=== PATIENT | female | born 1965 | race Caucasian/White ===

== ENCOUNTER → 2021-05-13 | Outpatient (CLI) | payer BC ==
[2021-05-13 14:36] LABS: CPK CREATINE PHOSPHOKINASE 72 U/L (26-192); RHEUMATOID FACTOR QUANT < 10.0 IU/ML (<15.0)
== END ==
LOC: M PLALAB 11:26
PROVIDERS: ATTEND Internal Medicine Pulmonary Disease
DX: R91.8 Other nonspecific abnormal finding of lung field (principal)

== ENCOUNTER → 2021-06-04 | Outpatient (CLI) | payer BC ==
[2021-06-04 17:07] LABS: PLATELET COUNT, AUTOMATED 432 10^3/uL (150-450)
[2021-06-04 17:12] LABS: INR 1.42; PARTIAL THROMBOPLASTIN TIME 36.2 SECONDS (25.9-37.0); PROTHROMBIN TIME 17.8 SECONDS (12.7-14.5)
== END ==
LOC: M PLALAB 15:30
PROVIDERS: ATTEND Internal Medicine Pulmonary Disease
DX: Z01.812 Encounter for preprocedural laboratory examination (principal)

== ENCOUNTER 2021-06-17 07:27 | Day surgery (SDC) | payer BC ==
[~2021-06-17] VITALS: Ht 165.1 cm; Wt 107.0 kg
[~2021-06-17 07:27] MED LIST: ALBUTEROL SULFATE 2.5 MG/0.5 ML INH NEB SOLN INH ONE; D 50CAP2; LETR2.5T2; LIDOCAINE 1% MDV 20ML VIAL SQ PRN; LIDOCAINE 4% INJ 5ML AMP INH ONE; LR 1,000 ML IV ONE
--- OUTSIDE RECORDS SUMMARY | 2021-06-17 07:33 | CCD | Continuity of Care Document ---
Author Author Silvia ARROYO M.D. Organization Unknown Address [address] [place] [address] Phone [phone] Care Team Providers Care Pitch Flaker Name Role Phone Jett Cadet AUTM [phone] Problems Description No Information Available Social History Type Date Description Comments Sex Unknown Tobacco Use Start: 07/18/79 End: 07/18/86 Patient is a forme r smoker 6 cig a day x 6 years Smoking Status Reviewed: 06/04/21 Patient is a former smoker 6 cig a day x 6 years Allergies and adverse reactions Active Allergies Criticality Reaction | Severity Comments Date Codeine Unable to assess criticality Palpitations 05/07/2021 Lovenox Unable to assess criticality Rash that blistered 05/07/2021 Medications Active Medications SIG Qnty Indications Ordering Provide r Date Xarelto 20mg Tablets 1 tab by mouth every day pcp DVT leg Unknown Letrozole 2.5mg Tablets 1 tab by mouth Unknown Oxycodone HCL 5mg Tablets 1 tab by mouth as needed Unknown Senna 1 tab by mouth as needed Unknown Colace 100mg Capsules 1 tab by mouth as needed Unknown Albuterol Sulfate HFA 108(90Base) mcg/Act Aerosol inhale two puffs by mouth every 4 hours as needed Unknown Immunizations Description No Information Available Vital Signs Date Vital Result Comment 06/04/2021 1:06pm BP Systolic 110 mmHg BP Diastolic 70 mmHg Heart Rate 74 /min O2 % BldC Oximetry 94 % Height 63 inches 5'3" Weight 228.00 lb BMI (Body Mass Index) 40.4 kg/m2 [place] Body Weight 115 lb Weight 103.421 kg BSA (Body Surface Area) 2.04 m2 05/07/2021 2:35pm BP Systolic 140 mmHg BP Diastolic 80 mmHg Heart Rate 76 /min O2 % BldC Oximetry 97 % Room Air Height 63 inches 5'3" Weight 232.00 lb BMI (Body Mass Index) 41.1 kg/m2 [place] Body Weight 115 lb Weight 105.235 kg BSA (Body Surface Area) 2.06 m2 Results Test Acquired Date Facility Test Result H/L Range Note Coag Panel For Procedures 06/04/2021 [facility] Main Lab [address] [place] [address] [phone] Platelet Count, Automated 432 10 Normal 150-45 0 Prothrombin Time/Inr 06/04/2021 [facility] Main Lab [address] [place] [address] [phone] Prothrombin Time 17.8 seconds High 12.7-14.5 Inr 1.42 Normal 1 Partial Thromboplastin Time 36.2 seconds Normal 25.9-37.0 Laboratory test finding 05/13/2021 [facility] Main Lab [address] [place] [address] [phone] Erythrocyte Sedimentation Rate 68 mm/hr High 0 -30 Rheumatoid Factor Quant < 10.0 IU/mL Normal <15.0 Anti Double Strand Dna Allyson 05/13/2021 [facility] Main Lab [address] [place] [address]593 [phone] Anti DS-Dna AB Negative Normal Negative Laboratory test finding 05/13/2021 [facility] Main Lab [address] [place] [address]78 [phone] Cyclic Citrullinated Peptide 10 units Normal 0-1 9 2 Candi Titer & Pattern 05/13/2021 [facility] nter Main Lab [address] [place] [address] [phone] Candi (Hep2) Positive Abnormal . 3 Candi Homogeneous Pattern TNP Normal . Candi Nucleolar Pattern TNP Normal . Candi Speckled Pattern TNP Normal . Candi Centromere Pattern TNP Normal . Candi Spindle Apparatus Pattern TNP Normal . Candi Nuclear Membrane Pattern 1:80 Normal . 4 Candi Midbody Pattern TNP Normal . Candi Nuclear Dot Pattern 1:320 High . 5 Candi Pcna Pattern TNP Normal . Candi Centriole Pattern TNP Normal . Candi Note (SEE NOTE) Normal . 6 Laboratory test finding 05/13/2021 [facility] Main Lab [address] [place] [address] [phone] CPK Creatine Phosphokinase 72 U/L Normal 26-19 2 Aldolase 4.4 U/L Normal 3.3-10.3 Anti-Sjogrens A&B Antibodies 05/13/2021 [facility] Main Lab [address] [place] [address] [phone] Ssa Sjogrens A <0.2 AI Normal 0.0-0.9 SSB Sjogrens B <0.2 AI Normal 0.0-0.9 Laboratory test finding 05/13/2021 [facility] Main Lab [address] [place] [address] [phone] Anti Scleroderma Antibodies <0.2 AI Normal 0.0- 0.9 Anti Centromere Antibody <0.2 AI Normal 0.0-0.9 Rna Polymerase III IgG Abs <20 units Normal <20 7 Anti Gwendolyn-1 Antibodies <20 units Normal <20 8 Anti-PL-12 AB Negative Normal Negative 9 Anti-Oj AB Negative Normal Negative 10 Anti-Ej AB Negative Normal Negative 11 Anti-SRP AB Negative Normal Negative 12 Mi-2 Antibodies Negative Normal Negative 13 Anti-Mda5 AB (Cadm-140) <20 units Normal <20 14 Anti-NXP-2 (MJ) AB <20 units Normal <20 15 Anti-Tif-1 (P155) AB <20 units Normal <20 16 Cristofer 1 Igg Antibody <20 units Normal <20 17 Anti-HMGCR AB IgG <20 units Normal <20 18 Anti Roca(Sm) AB <20 units Normal <20 19 Anti Allyssa Extractable Nuclear A 05/13/2021 [facility] Main Lab [address] [place] [address] [phone] Smiths Antibody < 0.2 AI Normal 0.0-0.9 BILLING TYPIST Antibody 0.2 AI Normal 0.0-0.9 Laboratory test finding 05/13/2021 [facility] Main Lab [address] [place] [address] [phone] Anti-U1 BILLING TYPIST AB <20 units Normal <20 20 FVL/[place] 05/07/2021 [employer] PDFReport SEE IMAGE FVC-Pred 3.26 L FVC-Pre 2.85 L FVC-%Pred-Pre 87 L FVC-LLN 2.59 L Fev1-Pred 2.54 L Fev1-Pre 2.35 L Fev1-%Pred-Pre 92 L Fev1-LLN 1.97 L Fev6-Pred 3.16 L Fev6-Pre 2.83 L Fev6-%Pred-Pre 89 L Fev6-LLN 2.50 L Uuj6tce-Lvwj 79 % Mww1mqy-Ydm 83 % Zad4duw-%Pred-Pre 104 % Naw8jib-SFC 69 % Tzt7zpa-Qpik 97 % Nff1kvq-Eca 100 % Dbr5rrg-%Pred-Pre 102 % FEFMax-Pred 6.30 L/E/sec FEFMax-Pre 5.21 L/E/sec FEFMax-%Pred-Pre 82 L/E/sec FEFMax-LLN 4.63 L/E/sec Uos8686-Hlse 2.42 L/E/sec Dqa8111-Klm 2.42 L/E/sec Mif8626-%Pred-Pre 100 L/E/sec Syk1672-LDP 1.22 L/E/sec ExpTime-Pre 7.31 sec Qnp9cbe2-Yxpa 81 % Dgu8qin7-Bgx 83 % Tqk2nss9-%Pred-Pre 102 % Gow1twa5-NMX 72 % 1 THERAPUTIC HUMAN INR VALUES INDICATIONS NORMAL RANGES PROPHYLAXIS/TREATMENT OF: VENOUS THROMBOSIS 2.0-3.0 PULMONARY EMBOLISM 2.0-3.0 PREVENTION OF SYSTEMIC EMBOLISM FROM: TISSUE HEART VALVES 2.0-3.0 ACUTE MYOCARDIAL INFARCTION 2.0-3.0 VALVULAR HEART DISEASE 2.0-3.0 ATRIAL FIBRILLATION 2.0-3.0 MECHANICAL VALVES(HIGH RISK) 2.5-3.5 RECURRENT MYOCARDIAL INFARCTION 2.5-3.5 2 Negative <20 Weak positive 20 - 39 Moderate positive 40 - 59 Strong positive >59 3 Negative <1:80 Borderline 1:80 Positive >1:80 4 ICAP nomenclature: AC-11,12 5 ICAP nomenclature: AC-6,7 6 . For more information about Hep-2 cell patterns use ANApatterns.org, the official website for the International Consensus on Antinuclear Antibody (CANDI) Patterns (ICAP). A positive CANDI result may occur in healthy individuals (low titer) or be associated with a variety of diseases. See interpretation chart which is not all inclusive: . Pattern Antigen Detected Suggested Disease Association --------- Homogeneous DNA(ds,ss), SLE - High titers Nucleosomes, Histones Drug-induced SLE --------- Speckled Sm, BILLING TYPIST, SCL-70, SLE,MCTD,PSS (diffuse form), SS-A/SS-B Sjogrens --------- Nucleolar SCL-70, PM-1/SCL High titers Scleroderma, PM/DM --------- Centromere Centromere PSS (limited form) w/Crest syndrome variable --------- Nuclear Dot Sp100,g37-rixkgk Primary Biliary Cirrhosis --------- Nuclear GP210, Primary Biliary Cirrhosis Membrane loulou A,B,C --------- Performed at: [facility] [address] [id number] Concrete Pourer: Deb Smith MD, Phone: [phone] Performed at: [facility] [address] [id number] Concrete Pourer: Tree Moreland MD, Phone: [phone] Performed at: [facility] [employer] [address] [place] [id number] Concrete Pourer: Nathan Frances MD, Phone: [phone] Negative: <20 Weak Positive: 20 - 39 Moderate Positive: 40 - 80 Strong Positive: >80 8 Negative: <20 Weak Positive: 20 - 39 Moderate Positive: 40 - 80 Strong Positive: >80 9 This test was developed and its performance characteristics determined by [facility]. It has not been cleared or approved by the Food and Drug Administration. 10 This test was developed and its performance characteristics determined by [facility] [employer]. It has not been cleared or approved by the Food and Drug Administration. 11 This test was developed and its performance characteristics determined by [facility]. It has not been cleared or approved by the Food and Drug Administration. 12 This test was developed and its performance characteristics determined by [facility] [employer]. It has not been cleared or approved by the Food and Drug Administration. 13 This test was developed and its performance characteristics determined by [employer] [employer]. It has not been cleared or approved by the Food and Drug Administration. 14 This test was developed and its performance characteristics determined by [employer] [employer]. It has not been cleared or approved by the Food and Drug Administration. Negative: <20 Weak Positive: 20 - 39 Moderate Positive: 40 - 80 Strong Positive: >80 15 This test was developed and its performance characteristics determined by [facility]. It has not been cleared or approved by the Food and Drug Administration. Negative: <20 Weak Positive: 20 - 39 Moderate Positive: 40 - 80 Strong Positive: >80 16 This test was developed and its performance characteristics determined by [facility]. It has not been cleared or approved by the Food and Drug Administration. Negative: <20 Weak Positive: 20 - 39 Moderate Positive: 40 - 80 Strong Positive: >80 17 This test was developed and its performance characteristics determined by [facility]. It has not been cleared or approved by the Food and Drug Administration. Negative: <20 Weak Positive: 20 - 39 Moderate Positive: 40 - 80 Strong Positive: >80 18 This test was developed and its performance characteristics determined by [facility]. It has not been cleared or approved by the Food and Drug Administration. Negative: <20 Weak Positive: 20 - 39 Moderate Positive: 40 - 59 Strong Positive: >59 . Anti-HMGCR antibodies are specific for immune-mediated necrotizing myopathy, most typically associated with statin therapy. However, about 30% of patients with anti-HMGCR positive myonecrosis have never been exposed to statins (Beka JL et al. Arthritis Rheum 2012;64(12):4087-93). 19 Negative: <20 Weak Positive: 20 - 39 Moderate Positive: 40 - 80 Strong Positive: >80 Performed at: [email or web address] [address] [id number] Concrete Pourer: Nathan Frances MD, Phone: [phone] This test was developed and its performance characteristics determined by [facility]. It has not been cleared or approved by the Food and Drug Administration. Negative: <20 Weak Positive: 20 - 39 Moderate Positive: 40 - 80 Strong Positive: >80 Procedures Date Code Description Status 06/04/2021 58751 Office/Outpatient Established Mo d MDM 30-39 Min Completed 06/04/2021 94082 Diffusing Capacity Completed 06/04/2021 32690 Plethysmography Determination Audrey ng Volumes & Per Airway Resist Completed 06/04/2021 72998 Bronchospasm Evaluation Complete d 05/07/2021 30147 Office/Outpatient New Moderate M DM 45-59 Minutes Completed Medical Devices Description No Information Available Encounters Type Date Location Provider Dx Diagnosis Office Visit 06/04/2021 3:15p [facility] Angela Arroyo M.D. R91.8 Other nonspecific abnormal f inding of lung field Z01.812 Encounter for preprocedural laboratory examination Office Visit 05/07/2021 2:45p [facility] Angela Arroyo M.D. R91.8 Other nonspecific abnormal f inding of lung field Assessments Date Code Description Provider 06/04/2021 R91.8 Other nonspecific abnormal findi ng of lung field Cash Arroyo M.D. 06/04/2021 R91.8 Other nonspecific abnormal findi ng of lung field Pulmonary Lab 06/04/2021 Z01.812 Encounter for preprocedural labo ratory examination Cash Arroyo M.D. 05/07/2021 R91.8 Other nonspecific abnormal findi ng of lung field Cash Arroyo M.D. Plan of Treatment 06/04/2021 - Cash Arroyo M.D.* R91.8 Other nonspecific abnormal finding of lung field * Z01.812 Encounter for preprocedural laboratory examination * * New Xrays:* CT Chest W/O Contrast, Ordered: 06/04/21 * New Orders:* Bronchoscopy in Or, Ordered: 06/04/21 * Follow up:* Follow up in office after procedure. if most recent CT chest is not useful for the EMN then will get CT chest ME robot leighton protocol, fup 1 week after procedure Functional Status Description No Information Available Mental Status Description No Information Available Referrals Refer to Reason for Referral Status Appt Cash Torres M.D. LUNG INFILTRATE Closed 021 [facility] Practice-Pulmonary [address] [place] [address] [phone]
--- OUTSIDE RECORDS SUMMARY | 2021-06-17 07:33 | CCD | Continuity of Care Document ---
Author Author Silvia ARROYO M.D. Organization Unknown Address [address] [place] [address] Phone [phone] Care Team Providers Care Scientific Informatics Project Leader Name Role Phone Jett Cadet AUTM [phone] Problems Description No Information Available Social [...] lb BMI (Body Mass Index) 40.4 kg/m2 [place] Body Weight 115 lb Weight 103.421 kg BSA (Body Surface Area) 2.04 m2 05/07/2021 2:35pm BP Systolic 140 mmHg BP Diastolic 80 mmHg Heart Rate 76 /min O2 % BldC Oximetry 97 % Room Air Height 63 inches 5'3" Weight 232.00 lb BMI (Body Mass Index) 41.1 kg/m2 [place] Body Weight 115 lb Weight 105.235 kg BSA (Body Surface Area) 2.06 m2 Results Test Acquired Date Facility Test Result H/L Range Note Coag Panel For Procedures 06/04/2021 [facility] Main Lab [address] [place] [address] [phone] Platelet Count, Automated 432 10 Normal 150-45 0 Partial Thromboplastin Time <pending> Prothrombin Time/Inr 06/04/2021 [facility] Main Lab [address] [place] [address] [phone] Prothrombin Time 17.8 seconds High 12.7-14.5 Inr 1.42 Normal 1 Partial Thromboplastin Time 36.2 seconds Normal 25.9-37.0 Laboratory test finding 05/13/2021 [facility] Main Lab [address] [place] [address] [phone] Erythrocyte Sedimentation Rate 68 mm/hr High 0 -30 Rheumatoid Factor Quant < 10.0 IU/mL Normal <15.0 Anti Double Strand Dna Allyson 05/13/2021 [facility] Main Lab [address] [place] [address] 48275 [phone] Anti DS-Dna AB Negative Normal Negative Laboratory test finding 05/13/2021 [facility] Main Lab [address] [place] [address]61 [phone] Cyclic Citrullinated Peptide 10 units Normal 0-1 9 2 Candi Titer & Pattern 05/13/2021 [facility] nter Main Lab [address] [place] [address]86 [phone] Candi (Hep2) Positive Abnormal . 3 Candi [...] Normal . 6 Laboratory test finding 05/13/2021 [facility] Main Lab [address] [place] [address] [phone] CPK Creatine Phosphokinase 72 U/L Normal 26-19 2 Aldolase 4.4 U/L Normal 3.3-10.3 Anti-Sjogrens A&B Antibodies 05/13/2021 [facility] Main Lab [address] [place] [address]378 [phone] Ssa Sjogrens A <0.2 AI Normal 0.0-0.9 SSB Sjogrens B <0.2 AI Normal 0.0-0.9 Laboratory test finding 05/13/2021 [facility] Main Lab [address] [place] [address]258 [phone] Anti Scleroderma Antibodies <0.2 AI Normal 0.0- [...] 19 Anti Allyssa Extractable Nuclear A 05/13/2021 [facility] Main Lab [address] [place] [address]2012 [phone] Smiths Antibody < 0.2 AI Normal 0.0-0.9 FITNESS WORKER Antibody 0.2 AI Normal 0.0-0.9 Laboratory test finding 05/13/2021 [facility] Main Lab [address] [place] [address] [phone] Anti-U1 FITNESS WORKER AB <20 units Normal <20 20 FVL/Mayur 05/07/2021 [employer] PDFReport SEE IMAGE FVC-Pred 3.26 L FVC-Pre 2.85 L FVC-%Pred-Pre 87 L FVC-LLN 2.59 L Fev1-Pred 2.54 L Fev1-Pre 2.35 L Fev1-%Pred-Pre 92 L Fev1-LLN 1.97 L Fev6-Pred 3.16 L Fev6-Pre 2.83 L Fev6-%Pred-Pre 89 L Fev6-LLN 2.50 L Wce8tpq-Wqjm 79 % Wyw8ohh-Kyy 83 % Icx9esc-%Pred-Pre 104 % Ntw6aim-HBT 69 % Ljv1loe-Zbhn 97 % Rcs6mqh-Gjy 100 % Kup5fnc-%Pred-Pre 102 % FEFMax-Pred 6.30 L/E/sec FEFMax-Pre 5.21 L/E/sec FEFMax-%Pred-Pre 82 L/E/sec FEFMax-LLN 4.63 L/E/sec Qtu3321-Qfva 2.42 L/E/sec Vim9667-Prf 2.42 L/E/sec Mlh3878-%Pred-Pre 100 L/E/sec Ulx6888-IHD 1.22 L/E/sec ExpTime-Pre 7.31 sec Vfv8ofe6-Urnm 81 % Chk7qhi7-Cht 83 % Tfp9fne1-%Pred-Pre 102 % Vdj2yxe3-JKH 72 % 1 THERAPUTIC HUMAN INR VALUES [...] Nucleosomes, Histones Drug-induced SLE --------- Speckled Sm, FITNESS WORKER, SCL-70, SLE,MCTD,PSS (diffuse form), SS-A/SS-B Sjogrens --------- Nucleolar SCL-70, PM-1/SCL High titers Scleroderma, PM/DM --------- Centromere Centromere PSS (limited form) w/Crest syndrome variable --------- Nuclear Dot Sp100,m73-qlxspp Primary Biliary Cirrhosis --------- Nuclear GP210, Primary Biliary Cirrhosis Membrane loulou A,B,C --------- Performed at: - [address] [id number] Manager Performance: Deb Smith MD, Phone: [phone] Performed at: - [facility] [id number] Manager Performance: Tree Moreland MD, Phone: [phone] Performed at: [facility] [employer] [address] [place] [id number] Manager Performance: Nathan Frances MD, Phone: [phone] Negative: <20 Weak Positive: 20 - 39 Moderate Positive: 40 - 80 Strong Positive: >80 8 Negative: <20 Weak Positive: 20 - 39 Moderate Positive: 40 - 80 Strong Positive: >80 9 This test was developed and its performance characteristics determined by [facility]. It has not been cleared or approved [...] myonecrosis have never been exposed to statins (Ireland JL et al. Arthritis Rheum 2012;64(12):4087-93). 19 Negative: <20 Weak Positive: 20 - 39 Moderate Positive: 40 - 80 Strong Positive: >80 Performed at: [facility] [employer] [address] [id number] Manager Performance: Nathan Frances MD, Phone: [phone] This test was developed and its performance characteristics determined by [facility]. It has not been cleared or approved by the Food and Drug Administration. Negative: <20 Weak Positive: 20 - 39 Moderate Positive: 40 - 80 Strong Positive: >80 Procedures Date Code Description Status 06/04/2021 52474 Office/Outpatient Established Mo d MDM 30-39 Min Completed 06/04/2021 19245 Diffusing Capacity Completed 06/04/2021 12991 Plethysmography Determination Audrey ng Volumes & Per Airway Resist Completed 06/04/2021 89771 Bronchospasm Evaluation Complete d 05/07/2021 10879 Office/Outpatient New Moderate M DM 45-59 Minutes [...] the EMN then will get CT chest [facility] protocol, fup 1 week after procedure Functional Status Description No Information Available Mental Status Description No Information Available Referrals Refer to Reason for Referral Status Appt Date Cash Arroyo M.D. LUNG INFILTRATE Closed 021 [facility] Practice-Pulmonary [address] [place] [address] [phone]
--- OUTSIDE RECORDS SUMMARY | 2021-06-17 07:33 | CCD | Continuity of Care Document ---
Author Author Silvia ARROYO M.D. Organization Unknown Address [address] [place] [address] Phone [phone] Care Team Providers Care Php Architect Name Role Phone Jett Cadet AUTM Problems Description No Information Available Social History [...] lb BMI (Body Mass Index) 40.4 kg/m2 [place] Body Weight 115 lb Weight 103.421 kg BSA (Body Surface Area) 2.04 m2 05/07/2021 2:35pm BP Systolic 140 mmHg BP Diastolic 80 mmHg Heart Rate 76 /min O2 % BldC Oximetry 97 % Room Air Height 63 inches 5'3" Weight 232.00 lb BMI (Body Mass Index) 41.1 kg/m2 [place] Body Weight 115 lb Weight 105.235 kg BSA (Body Surface Area) 2.06 m2 Results Test Acquired Date Facility Test Result H/L Range Note Laboratory test finding 05/13/2021 [facility] Main Lab [address] [place] [address] [phone] Erythrocyte Sedimentation Rate 68 mm/hr High 0 -30 Rheumatoid Factor Quant < 10.0 IU/mL Normal <15.0 Anti Double Strand Dna Allyson 05/13/2021 [facility] Main Lab [address] [place] [address] [phone] Anti DS-Dna AB Negative Normal Negative Laboratory test finding 05/13/2021 [facility] Main Lab [address] [place] [address] [phone] Cyclic Citrullinated Peptide 10 units Normal 0-1 9 1 Candi Titer & Pattern 05/13/2021 [facility] Main Lab [address] [place] [address] [phone] Candi (Hep2) Positive Abnormal . 2 Candi Homogeneous Pattern TNP Normal . Candi Nucleolar Pattern TNP Normal . Candi Speckled Pattern TNP Normal . Candi Centromere Pattern TNP Normal . Candi Spindle Apparatus Pattern TNP Normal . Candi Nuclear Membrane Pattern 1:80 Normal . 3 Candi Midbody Pattern TNP Normal . Candi Nuclear Dot Pattern 1:320 High . 4 Candi Pcna Pattern TNP Normal . Candi Centriole Pattern TNP Normal . Candi Note (SEE NOTE) Normal . 5 Laboratory test finding 05/13/2021 [facility] Main Lab [address] [place] [address] [phone] CPK Creatine Phosphokinase 72 U/L Normal 26-19 2 Aldolase 4.4 U/L Normal 3.3-10.3 Anti-Sjogrens A&B Antibodies 05/13/2021 [facility] Main Lab [address] [place] [address] [phone] Ssa Sjogrens A <0.2 AI Normal 0.0-0.9 SSB Sjogrens B <0.2 AI Normal 0.0-0.9 Laboratory test finding 05/13/2021 [facility] Main Lab [address] [place] [address] [phone] Anti Scleroderma Antibodies <0.2 AI Normal 0.0- 0.9 Anti Centromere Antibody <0.2 AI Normal 0.0-0.9 Rna Polymerase III IgG Abs <20 units Normal <20 6 Anti Gwendolyn-1 Antibodies <20 units Normal <20 7 Anti-PL-12 AB Negative Normal Negative 8 Anti-Oj AB Negative Normal Negative 9 Anti-Ej AB Negative Normal Negative 10 Anti-SRP AB Negative Normal Negative 11 Mi-2 Antibodies Negative Normal Negative 12 Anti-Mda5 AB (Cadm-140) <20 units Normal <20 13 Anti-NXP-2 (MJ) AB <20 units Normal <20 14 Anti-Tif-1 (P155) AB <20 units Normal <20 15 Cristofer 1 Igg Antibody <20 units Normal <20 16 Anti-HMGCR AB IgG <20 units Normal <20 17 Anti Roca(Sm) AB <20 units Normal <20 18 Anti Allyssa Extractable Nuclear A 05/13/2021 [facility] Main Lab [address] [place] [address] [phone] Smiths Antibody < 0.2 AI Normal 0.0-0.9 POLICE LIEUTENANT Antibody 0.2 AI Normal 0.0-0.9 Laboratory test finding 05/13/2021 [facility] Main Lab [address] [place] [address] [phone] Anti-U1 POLICE LIEUTENANT AB <20 units Normal <20 19 FVL/[place] 05/07/2021 [facility] PDFReport SEE IMAGE FVC-Pred 3.26 L FVC-Pre 2.85 L FVC-%Pred-Pre 87 L FVC-LLN 2.59 L Fev1-Pred 2.54 L Fev1-Pre 2.35 L Fev1-%Pred-Pre 92 L Fev1-LLN 1.97 L Fev6-Pred 3.16 L Fev6-Pre 2.83 L Fev6-%Pred-Pre 89 L Fev6-LLN 2.50 L Hho2agc-Knxn 79 % Qgi2hhs-Ilv 83 % Vtg5bwx-%Pred-Pre 104 % Vdv0cdg-GGN 69 % Zld5kpp-Llhp 97 % Ici2kjp-Zeh 100 % Ekc2jak-%Pred-Pre 102 % FEFMax-Pred 6.30 L/E/sec FEFMax-Pre 5.21 L/E/sec FEFMax-%Pred-Pre 82 L/E/sec FEFMax-LLN 4.63 L/E/sec Mds0127-Bgdy 2.42 L/E/sec Njl9071-Ped 2.42 L/E/sec Rdt6777-%Pred-Pre 100 L/E/sec Dsa7701-PAD 1.22 L/E/sec ExpTime-Pre 7.31 sec Cfn0cdj0-Ettt 81 % Ozn3rsc6-Awh 83 % Npp5hpp6-%Pred-Pre 102 % Ktq1hrg5-GCK 72 % 1 Negative <20 Weak positive 20 - 39 Moderate positive 40 - 59 Strong positive >59 2 Negative <1:80 Borderline 1:80 Positive >1:80 3 ICAP nomenclature: AC-11,12 4 ICAP nomenclature: AC-6,7 5 . For more information about Hep-2 cell [...] Nucleosomes, Histones Drug-induced SLE --------- Speckled Sm, POLICE LIEUTENANT, SCL-70, SLE,MCTD,PSS (diffuse form), SS-A/SS-B Sjogrens --------- Nucleolar SCL-70, PM-1/SCL High titers Scleroderma, PM/DM --------- Centromere Centromere PSS (limited form) w/Crest syndrome variable --------- Nuclear Dot Sp100,i17-epblks Primary Biliary Cirrhosis --------- Nuclear GP210, Primary Biliary Cirrhosis Membrane loulou A,B,C --------- Performed at: - [facility] [id number] Devops Consultant: Deb Smith MD, Phone: [phone] Performed at: - [facility] [id number] Devops Consultant: Tree Moreland MD, Phone: [phone] Performed at: [facility] [address] [place] [id number] Devops Consultant: Nathan Frances MD, Phone: [phone] Negative: <20 Weak Positive: 20 - 39 Moderate Positive: 40 - 80 Strong Positive: >80 7 Negative: <20 Weak Positive: 20 - 39 Moderate Positive: 40 - 80 Strong Positive: >80 8 This test was developed and its performance characteristics determined by [facility]. It has not been cleared or approved by the Food and Drug Administration. 9 This test was developed and its [...] Positive: 40 - 80 Strong Positive: >80 14 This test was developed and its [...] statins (Beka JL et al. Arthritis Rheum 2012;64(12):4083-93). 18 Negative: <20 Weak Positive: 20 - 39 Moderate Positive: 40 - 80 Strong Positive: >80 Performed at: [facility] [address] [place] [id number] Devops Consultant: Nathan Frances MD, Phone: [phone] This test was developed and its performance characteristics determined by [facility]. It has not been cleared or approved by the Food and Drug Administration. Negative: <20 Weak Positive: 20 - 39 Moderate Positive: 40 - 80 Strong Positive: >80 Procedures Date Code Description Status 05/07/2021 51912 Office/Outpatient New Moderate M DM 45-59 Minutes Completed Medical Devices Description No Information Available Encounters Type Date Location Provider Dx Diagnosis Office Visit 05/07/2021 2:45p [facility]/Thoracic M mary Arroyo M.D. R91.8 Other nonspecific abnormal f inding of lung field Assessments Date Code Description Provider 06/04/2021 R91.8 Other nonspecific abnormal findi ng of lung field Cash Arroyo M.D. 06/04/2021 R91.8 Other nonspecific abnormal findi ng of lung field Pulmonary Lab 06/04/2021 Z01.812 Encounter for preprocedural labo ratory examination Cash Arroyo M.D. 05/07/2021 R91.8 Other nonspecific abnormal findi ng of lung field Csah Arroyo M.D. Plan of Treatment 06/04/2021 - [...] the EMN then will get CT chest [facility] protocol, fup 1 week after procedure Functional Status Description No Information Available Mental Status Description No Information Available Referrals Refer to Reason for Referral Status Appt Date Cash Arroyo M.D. LUNG INFILTRATE Closed [address] [place] [address]-Pulmonary [address] [place] [address] [phone]
--- OUTSIDE RECORDS SUMMARY | 2021-06-17 07:33 | CCD | Continuity of Care Document ---
Author Author Silvia ARROYO M.D. Organization Unknown Address [address] [place] [address] Phone [phone] Care Team Providers Care Senior Accounting Manager Name Role Phone Jett Cadet AUTM Problems [...] lb BMI (Body Mass Index) 40.4 kg/m2 [place] Body Weight 115 lb Weight 103.421 kg BSA (Body Surface Area) 2.04 m2 05/07/2021 2:35pm BP Systolic 140 mmHg BP Diastolic 80 mmHg Heart Rate 76 /min O2 % BldC Oximetry 97 % Room Air Height 63 inches 5'3" Weight 232.00 lb BMI (Body Mass Index) 41.1 kg/m2 [place] Body Weight 115 lb Weight 105.235 kg BSA (Body Surface Area) 2.06 m2 Results Test Acquired Date Facility Test Result H/L Range Note Laboratory test finding 05/13/2021 [facility] Main Lab [address] [place] [address] [phone] Erythrocyte Sedimentation Rate 68 mm/hr High 0 -30 Rheumatoid Factor Quant < 10.0 IU/mL Normal <15.0 Anti Double Strand Dna Allyson 05/13/2021 [facility] Main Lab [address] [place] [address] [phone] Anti DS-Dna AB Negative Normal Negative Laboratory test finding 05/13/2021 [facility] Main Lab [address] [place] [address] [phone] Cyclic Citrullinated Peptide 10 units Normal 0-1 9 1 Candi Titer & Pattern 05/13/2021 [facility] Main Lab [address] [place] [address] [phone] Candi (Hep2) Positive Abnormal . 2 Candi [...] Normal . 5 Laboratory test finding 05/13/2021 [facility] Main Lab [address] [place] [address] [phone] CPK Creatine Phosphokinase 72 U/L Normal 26-19 2 Aldolase 4.4 U/L Normal 3.3-10.3 Anti-Sjogrens A&B Antibodies 05/13/2021 [facility] Main Lab [address] [place] [address] [phone] Ssa Sjogrens A <0.2 AI Normal 0.0-0.9 SSB Sjogrens B <0.2 AI Normal 0.0-0.9 Laboratory test finding 05/13/2021 [facility] Main Lab [address] [place] [address] [phone] Anti Scleroderma Antibodies <0.2 AI Normal 0.0- [...] 18 Anti Allyssa Extractable Nuclear A 05/13/2021 [facility] Main Lab [address] [place] [address] [phone] Smiths Antibody < 0.2 AI Normal 0.0-0.9 ORDER DETAILER Antibody 0.2 AI Normal 0.0-0.9 Laboratory test finding 05/13/2021 [facility] Main Lab [address] [place] [address] [phone] Anti-U1 ORDER DETAILER AB <20 units Normal <20 19 FVL/[place] 05/07/2021 [facility] PDFReport SEE IMAGE FVC-Pred 3.26 L FVC-Pre 2.85 L FVC-%Pred-Pre 87 L FVC-LLN 2.59 L Fev1-Pred 2.54 L Fev1-Pre 2.35 L Fev1-%Pred-Pre 92 L Fev1-LLN 1.97 L Fev6-Pred 3.16 L Fev6-Pre 2.83 L Fev6-%Pred-Pre 89 L Fev6-LLN 2.50 L Hlx8vsn-Rlze 79 % Jpy8epd-Bde 83 % Qgw8gaj-%Pred-Pre 104 % Idh4mxz-ETX 69 % Xom7unz-Gqmj 97 % Kbp1dln-Cns 100 % Xyd3rqy-%Pred-Pre 102 % FEFMax-Pred 6.30 L/E/sec FEFMax-Pre 5.21 L/E/sec FEFMax-%Pred-Pre 82 L/E/sec FEFMax-LLN 4.63 L/E/sec Wzo1384-Ffls 2.42 L/E/sec Bpg7623-Nse 2.42 L/E/sec Wsz2075-%Pred-Pre 100 L/E/sec Hdd2934-XEN 1.22 L/E/sec ExpTime-Pre 7.31 sec Kqz4cia3-Qopf 81 % Okf0nfp6-Mbj 83 % Bya9pzb7-%Pred-Pre 102 % Ior9imd8-GJT 72 % 1 Negative <20 Weak positive 20 - 39 Moderate positive 40 - 59 Strong positive >59 2 Negative <1:80 Borderline 1:80 Positive >1:80 3 ICAP nomenclature: AC-11,12 4 ICAP nomenclature: AC-6,7 5 . For more information about Hep-2 cell patterns use ANApatterns.org, the official website for the International Consensus on Antinuclear Antibody (CADNI) Patterns (ICAP). A positive CANDI result may occur in healthy individuals (low titer) or be associated with a variety of diseases. See interpretation chart which is not all inclusive: . Pattern Antigen Detected Suggested Disease Association --------- Homogeneous DNA(ds,ss), SLE - High titers Nucleosomes, Histones Drug-induced SLE --------- Speckled Sm, ORDER DETAILER, SCL-70, SLE,MCTD,PSS (diffuse form), SS-A/SS-B Sjogrens --------- Nucleolar SCL-70, PM-1/SCL High titers Scleroderma, PM/DM --------- Centromere Centromere PSS (limited form) w/Crest syndrome variable --------- Nuclear Dot Sp100,y18-ghzeqo Primary Biliary Cirrhosis --------- Nuclear GP210, Primary Biliary Cirrhosis Membrane loulou A,B,C --------- Performed at: - [facility] [id number] Toddler Teacher: Deb Smith MD, Phone: [phone] Performed at: - [facility] [id number] Toddler Teacher: Tree Moreland MD, Phone: [phone] Performed at: [facility] [address] [place] [id number] Toddler Teacher: Nathan Frances MD, Phone: [phone] 6 Negative: <20 Weak Positive: 20 - [...] statins (Beka JL et al. Arthritis Rheum 2012;64(12):4084-93). 18 Negative: <20 Weak Positive: 20 - 39 Moderate Positive: 40 - 80 Strong Positive: >80 Performed at: [facility] [address] [place] [id number] Toddler Teacher: Nathan Frances MD, Phone: [phone] This test was developed and its performance characteristics determined by [facility]. It has not been cleared or approved by the Food and Drug Administration. Negative: <20 Weak Positive: 20 - 39 Moderate Positive: 40 - 80 Strong Positive: >80 Procedures Date Code Description Status 05/07/2021 76320 Office/Outpatient New Moderate M DM 45-59 Minutes Completed Medical Devices Description No Information Available Encounters Type Date Location Provider Dx Diagnosis Office Visit 05/07/2021 2:45p [facility]/Thoracic M mary Arroyo M.D. R91.8 Other [...] EMN then will get CT chest [facility] protocol, fup 1 week after procedure Functional Status Description No Information Available Mental Status Description No Information Available Referrals Refer to Reason for Referral Status Appt Date Cash Arroyo M.D. LUNG INFILTRATE Closed [address] [place] [address]-Pulmonary [address] [place] [address] [phone]
--- OUTSIDE RECORDS SUMMARY | 2021-06-17 07:33 | CCD | Continuity of Care Document ---
Author Author Silvia ARROYO M.D. Organization Unknown Address [address] [place] [address] Phone [phone] Care Team Providers Care Development Vice President Name Role Phone Jett Cadet AUTM [phone] Problems Description No Information Available Social [...] lb BMI (Body Mass Index) 40.4 kg/m2 [place] Body Weight 115 lb Weight 103.421 kg BSA (Body Surface Area) 2.04 m2 05/07/2021 2:35pm BP Systolic 140 mmHg BP Diastolic 80 mmHg Heart Rate 76 /min O2 % BldC Oximetry 97 % Room Air Height 63 inches 5'3" Weight 232.00 lb BMI (Body Mass Index) 41.1 kg/m2 [place] Body Weight 115 lb Weight 105.235 kg BSA (Body Surface Area) 2.06 m2 Results Test Acquired Date Facility Test Result H/L Range Note Laboratory test finding 05/13/2021 [facility] Main Lab [address] [place] [address] [phone] Erythrocyte Sedimentation Rate 68 mm/hr High 0 -30 Rheumatoid Factor Quant < 10.0 IU/mL Normal <15.0 Anti Double Strand Dna Allyson 05/13/2021 [facility] Main Lab [address] [place] [address] [phone] Anti DS-Dna AB Negative Normal Negative Laboratory test finding 05/13/2021 [facility] Main Lab [address] [place] [address] [phone] Cyclic Citrullinated Peptide 10 units Normal 0-1 9 1 Candi Titer & Pattern 05/13/2021 [facility] Lab [address] [place] [address] [phone] Candi (Hep2) Positive Abnormal . 2 Candi [...] Normal . 5 Laboratory test finding 05/13/2021 [facility] Main Lab [address] [place] [address] [phone] CPK Creatine Phosphokinase 72 U/L Normal 26-19 2 Aldolase 4.4 U/L Normal 3.3-10.3 Anti-Sjogrens A&B Antibodies 05/13/2021 [facility] Main Lab [address] [place] [address] [phone] Ssa Sjogrens A <0.2 AI Normal 0.0-0.9 SSB Sjogrens B <0.2 AI Normal 0.0-0.9 Laboratory test finding 05/13/2021 [facility] Main Lab [address] [place] [address] [phone] Anti Scleroderma Antibodies <0.2 AI Normal 0.0- [...] 18 Anti Allyssa Extractable Nuclear A 05/13/2021 [facility] Main Lab [address] [place] [address] [phone] Smiths Antibody < 0.2 AI Normal 0.0-0.9 DIRECT CHILL CASTER Antibody 0.2 AI Normal 0.0-0.9 Laboratory test finding 05/13/2021 [facility] Main Lab [address] [place] [address] [phone] Anti-U1 DIRECT CHILL CASTER AB <20 units Normal <20 19 FVL/[place] 05/07/2021 [facility] PDFReport SEE IMAGE FVC-Pred 3.26 L FVC-Pre 2.85 L FVC-%Pred-Pre 87 L FVC-LLN 2.59 L Fev1-Pred 2.54 L Fev1-Pre 2.35 L Fev1-%Pred-Pre 92 L Fev1-LLN 1.97 L Fev6-Pred 3.16 L Fev6-Pre 2.83 L Fev6-%Pred-Pre 89 L Fev6-LLN 2.50 L Ovd0ubo-Efxm 79 % Ahy3nwj-Lad 83 % Bcv9moo-%Pred-Pre 104 % Buo0uun-XCD 69 % Njw5vok-Zqut 97 % Mnz8oth-Oos 100 % Zbm3kxp-%Pred-Pre 102 % FEFMax-Pred 6.30 L/E/sec FEFMax-Pre 5.21 L/E/sec FEFMax-%Pred-Pre 82 L/E/sec FEFMax-LLN 4.63 L/E/sec Pxp8636-Vyod 2.42 L/E/sec Idh8317-Dhi 2.42 L/E/sec Ilw1616-%Pred-Pre 100 L/E/sec Bai0653-ZVQ 1.22 L/E/sec ExpTime-Pre 7.31 sec Mew8wwk2-Vnus 81 % Qxs0prp4-Gky 83 % Buk9kfz3-%Pred-Pre 102 % Irf4oai4-UEM 72 % 1 Negative <20 Weak positive [...] Nucleosomes, Histones Drug-induced SLE --------- Speckled Sm, DIRECT CHILL CASTER, SCL-70, SLE,MCTD,PSS (diffuse form), SS-A/SS-B Sjogrens --------- Nucleolar SCL-70, PM-1/SCL High titers Scleroderma, PM/DM --------- Centromere Centromere PSS (limited form) w/Crest syndrome variable --------- Nuclear Dot Sp100,g36-raxqci Primary Biliary Cirrhosis --------- Nuclear GP210, Primary Biliary Cirrhosis Membrane loulou A,B,C --------- Performed at: - [facility] [id number] Box Blank Machine Feeder: Deb Smith MD, Phone: [phone] Performed at: - [facility] [id number] Box Blank Machine Feeder: Tree Moreland MD, Phone: [phone] Performed at: [facility] [address] [place] [id number] Box Blank Machine Feeder: Nathan Frances MD, Phone: [phone] Negative: <20 Weak Positive: 20 - [...] - 80 Strong Positive: >80 Performed at: [facility] [address] [place] [id number] Box Blank Machine Feeder: Nathan Frances MD, Phone: [phone] This test was developed and its performance characteristics determined by [facility]. It has not been cleared or approved by the Food and Drug Administration. Negative: <20 Weak Positive: 20 - 39 Moderate Positive: 40 - 80 Strong Positive: >80 Procedures Date Code Description Status 05/07/2021 66518 Office/Outpatient New Moderate M DM 45-59 Minutes [...] the EMN then will get CT chest [facility] protocol, fup 1 week after procedure Functional Status Description No Information Available Mental Status Description No Information Available Referrals Refer to Reason for Referral Status Appt Date Cash Arroyo M.D. LUNG INFILTRATE Closed [address] [place] [address]-Pulmonary [address] [place] [address] [phone]
--- OUTSIDE RECORDS SUMMARY | 2021-06-17 07:33 | CCD | Continuity of Care Document ---
Author Author Silvia ARROYO M.D. Organization Unknown Address [address] [place] [address] Phone [phone] Care Team Providers Care Churn Operator Name Role Phone Jett Cadet AUTM [phone] Problems Description No Information Available Social History [...] lb BMI (Body Mass Index) 40.4 kg/m2 [place] Body Weight 115 lb Weight 103.421 kg BSA (Body Surface Area) 2.04 m2 05/07/2021 2:35pm BP Systolic 140 mmHg BP Diastolic 80 mmHg Heart Rate 76 /min O2 % BldC Oximetry 97 % Room Air Height 63 inches 5'3" Weight 232.00 lb BMI (Body Mass Index) 41.1 kg/m2 [place] Body Weight 115 lb Weight 105.235 kg BSA (Body Surface Area) 2.06 m2 Results Test Acquired Date Facility Test Result H/L Range Note Coag Panel For Procedures 06/04/2021 [facility] Main Lab [address] [place] [address] [phone] Platelet Count, Automated 432 10 Normal 150-45 0 Prothrombin Time/Inr 06/04/2021 [facility] Main Lab [address] [place] [address] 90682 [phone] Prothrombin Time 17.8 seconds High 12.7-14.5 Inr 1.42 Normal 1 Partial Thromboplastin Time 36.2 seconds Normal 25.9-37.0 Laboratory test finding 05/13/2021 [facility] Main Lab [address] [place] [address]287 [phone] Erythrocyte Sedimentation Rate 68 mm/hr High 0 -30 Rheumatoid Factor Quant < 10.0 IU/mL Normal <15.0 Anti Double Strand Dna Allyson 05/13/2021 [facility] Main Lab [address] [place] [address] 52253 [phone] Anti DS-Dna AB Negative Normal Negative Laboratory test finding 05/13/2021 [facility] Main Lab [address] [place] [address] 72033 [phone] Cyclic Citrullinated Peptide 10 units Normal 0-1 9 2 Candi Titer & Pattern 05/13/2021 [facility] Main Lab [address] [place] [address] [phone] Candi (Hep2) Positive Abnormal . 3 Candi [...] Normal . 6 Laboratory test finding 05/13/2021 [facility] Main Lab [address] [place] [address] [phone] CPK Creatine Phosphokinase 72 U/L Normal 26-19 2 Aldolase 4.4 U/L Normal 3.3-10.3 Anti-Sjogrens A&B Antibodies 05/13/2021 [facility] Main Lab [address] [place] [address] 53056 [phone] Ssa Sjogrens A <0.2 AI Normal 0.0-0.9 SSB Sjogrens B <0.2 AI Normal 0.0-0.9 Laboratory test finding 05/13/2021 [facility] Main Lab [address] [place] [address] 16919 [phone] Anti Scleroderma Antibodies <0.2 AI Normal 0.0- [...] 19 Anti Allyssa Extractable Nuclear A 05/13/2021 [facility] Main Lab [address] [place] [address] 31598 [phone] Smiths Antibody < 0.2 AI Normal 0.0-0.9 STRATEGIC ACCOUNT EXECUTIVE Antibody 0.2 AI Normal 0.0-0.9 Laboratory test finding 05/13/2021 [facility] Main Lab [address] [place] [address] [phone] Anti-U1 STRATEGIC ACCOUNT EXECUTIVE AB <20 units Normal <20 20 FVL/[place] 05/07/2021 [facility] PDFReport SEE IMAGE FVC-Pred 3.26 L FVC-Pre 2.85 L FVC-%Pred-Pre 87 L FVC-LLN 2.59 L Fev1-Pred 2.54 L Fev1-Pre 2.35 L Fev1-%Pred-Pre 92 L Fev1-LLN 1.97 L Fev6-Pred 3.16 L Fev6-Pre 2.83 L Fev6-%Pred-Pre 89 L Fev6-LLN 2.50 L Ifs8nqk-Ybrb 79 % Uxk5ppo-Rxq 83 % Ucu2brv-%Pred-Pre 104 % Fnx7jqs-JUV 69 % Zhg1uap-Ushq 97 % Ylq4oay-Mwa 100 % Tlg3tyf-%Pred-Pre 102 % FEFMax-Pred 6.30 L/E/sec FEFMax-Pre 5.21 L/E/sec FEFMax-%Pred-Pre 82 L/E/sec FEFMax-LLN 4.63 L/E/sec Ocj8797-Ggwk 2.42 L/E/sec Nzr8802-Doi 2.42 L/E/sec Qgs9985-%Pred-Pre 100 L/E/sec Xin3664-NCE 1.22 L/E/sec ExpTime-Pre 7.31 sec Evp6xmy7-Mnlu 81 % Zak3ldj9-Lbk 83 % Lgx8dyy0-%Pred-Pre 102 % Mgj2pxf4-VTO 72 % 1 THERAPUTIC HUMAN INR VALUES [...] Nucleosomes, Histones Drug-induced SLE --------- Speckled Sm, STRATEGIC ACCOUNT EXECUTIVE, SCL-70, SLE,MCTD,PSS (diffuse form), SS-A/SS-B Sjogrens --------- Nucleolar SCL-70, PM-1/SCL High titers Scleroderma, PM/DM --------- Centromere Centromere PSS (limited form) w/Crest syndrome variable --------- Nuclear Dot Sp100,m16-gdfqch Primary Biliary Cirrhosis --------- Nuclear GP210, Primary Biliary Cirrhosis Membrane loulou A,B,C --------- Performed at: [facility] [address] [id number] Tailing Machine Operator: Deb Smith MD, Phone: [phone] Performed at: [facility] [id number] Tailing Machine Operator: Tree Moreland MD, Phone: [phone] Performed at: [facility] [address] [place] [id number] Tailing Machine Operator: Nathan Frances MD, Phone: [phone] Negative: <20 Weak Positive: 20 - 39 Moderate Positive: 40 - 80 Strong Positive: >80 8 Negative: <20 Weak Positive: 20 - 39 Moderate Positive: 40 - 80 Strong Positive: >80 9 This test was developed and its performance characteristics determined by [facility] It has not been cleared or approved by the Food and Drug Administration. 10 This test was developed and its performance characteristics determined by [facility] It has not been cleared or approved by the Food and Drug Administration. 11 This test was developed and its performance characteristics determined by [facility]. It has not been cleared or approved by the Food and Drug Administration. 12 This test was developed and its performance characteristics determined by [facility] It has not been cleared or approved by the Food and Drug Administration. 13 This test was developed and its performance characteristics determined by [facility] It has not been cleared or approved by the Food and Drug Administration. 14 This test was developed and its performance characteristics determined by [facility] It has not been cleared or approved [...] - 80 Strong Positive: >80 Performed at: [facility] [address] [id number] Tailing Machine Operator: Nathan Frances MD, Phone: [phone] This test was developed and its performance characteristics determined by [facility]. It has not been cleared or approved by the Food and Drug Administration. Negative: <20 Weak Positive: 20 - 39 Moderate Positive: 40 - 80 Strong Positive: >80 Procedures Date Code Description Status 06/04/2021 70917 Office/Outpatient Established Mo d MDM 30-39 Min Completed 06/04/2021 16398 Diffusing Capacity Completed 06/04/2021 27843 Plethysmography Determination Audrey ng Volumes & Per Airway Resist Completed 06/04/2021 50814 Bronchospasm Evaluation Complete d 05/07/2021 70127 Office/Outpatient New Moderate M DM 45-59 Minutes Completed Medical Devices Description No Information Available Encounters Type Date Location Provider Dx Diagnosis Office Visit 06/04/2021 3:15p [facility] Pulmonary/Thoracic Angela Arroyo M.D. R91.8 Other nonspecific abnormal f inding of lung field Z01.812 Encounter for preprocedural laboratory examination Office Visit 05/07/2021 2:45p [facility] Pulmonary/Thoracic Angela Arroyo M.D. R91.8 Other nonspecific [...] field Cash Arroyo M.D. Plan of Treatment Future Appointment(s):* 06/17/2021 7:30 am - Catherine Guzman M.D. at [facility] Pulmonary/Thoracic * 06/17/2021 7:30 am - Cash Arroyo M.D. at [facility] Pulmonary/Thoracic 06/04/2021 - Cash Arroyo M.D.* R91.8 Other nonspecific abnormal finding of lung field * Z01.812 Encounter for preprocedural laboratory examination * * New Orders:* Bronchoscopy in [place], Ordered: 06/04/21 * Follow up:* Follow up in office after procedure. if most recent CT chest is not useful for the EMN then will get CT chest [place] [facility], fup 1 week after procedure Functional Status Description No Information Available Mental Status Description No Information Available Referrals Refer to Reason for Referral Status Appt Date Cash Arroyo M.D. LUNG INFILTRATE Closed 021 [facility]-Pulmonary [address] [place] [id number] [phone]
--- OUTSIDE RECORDS SUMMARY | 2021-06-17 07:33 | CCD | Continuity of Care Document ---
Author Author Silvia ARROYO M.D. Organization Unknown Address [address] [place] [address] Phone [phone] Care Team Providers Care Heavy Equipment Operator Apprentice Name Role Phone Jett Cadet AUTM [phone] Problems Description No Information Available Social History [...] lb BMI (Body Mass Index) 40.4 kg/m2 [place] Body Weight 115 lb Weight 103.421 kg BSA (Body Surface Area) 2.04 m2 05/07/2021 2:35pm BP Systolic 140 mmHg BP Diastolic 80 mmHg Heart Rate 76 /min O2 % BldC Oximetry 97 % Room Air Height 63 inches 5'3" Weight 232.00 lb BMI (Body Mass Index) 41.1 kg/m2 [place] Body Weight 115 lb Weight 105.235 kg BSA (Body Surface Area) 2.06 m2 Results Test Acquired Date Facility Test Result H/L Range Note Laboratory test finding 05/13/2021 [facility] Main Lab [address] [place] [address] [phone] Erythrocyte Sedimentation Rate 68 mm/hr High 0 -30 Rheumatoid Factor Quant < 10.0 IU/mL Normal <15.0 Anti Double Strand Dna Allyson 05/13/2021 [facility] Main Lab [address] [place] [address]6449 [phone] Anti DS-Dna AB Negative Normal Negative Laboratory test finding 05/13/2021 [facility] Main Lab [address] [place] [address] 79033 [phone] Cyclic Citrullinated Peptide 10 units Normal 0-1 9 1 Candi Titer & Pattern 05/13/2021 [facility] [address] [place] [address] 63893 [phone] Candi (Hep2) Positive Abnormal . 2 Candi [...] Normal . 5 Laboratory test finding 05/13/2021 [facility] Main Lab [address] [place] [address] [phone] CPK Creatine Phosphokinase 72 U/L Normal 26-19 2 Aldolase 4.4 U/L Normal 3.3-10.3 Anti-Sjogrens A&B Antibodies 05/13/2021 [facility] Main Lab [address] [place] [address] [phone] Ssa Sjogrens A <0.2 AI Normal 0.0-0.9 SSB Sjogrens B <0.2 AI Normal 0.0-0.9 Laboratory test finding 05/13/2021 [facility] Main Lab [address] [place] [address] 95332 [phone] Anti Scleroderma Antibodies <0.2 AI Normal 0.0- [...] IgG <20 units Normal <20 17 Anti Orca(Sm) AB <20 units Normal <20 18 Anti Allyssa Extractable Nuclear A 05/13/2021 [facility] Main Lab [address] [place] [address] [phone] [place] Antibody < 0.2 AI Normal 0.0-0.9 WINDOW TRIMMER APPRENTICE Antibody 0.2 AI Normal 0.0-0.9 Laboratory test finding 05/13/2021 [facility] Main Lab [address] [place] [address] [phone] Anti-U1 WINDOW TRIMMER APPRENTICE AB <20 units Normal <20 19 FVL/Early 05/07/2021 [facility] PDFReport SEE IMAGE FVC-Pred 3.26 L FVC-Pre 2.85 L FVC-%Pred-Pre 87 L FVC-LLN 2.59 L Fev1-Pred 2.54 L Fev1-Pre 2.35 L Fev1-%Pred-Pre 92 L Fev1-LLN 1.97 L Fev6-Pred 3.16 L Fev6-Pre 2.83 L Fev6-%Pred-Pre 89 L Fev6-LLN 2.50 L Egl0rsg-Hbha 79 % Qle0zpp-Aql 83 % Qqj3tbt-%Pred-Pre 104 % Ypb2khi-OKC 69 % Tjy0ajr-Alao 97 % Lei5ohn-Bep 100 % Wip6yqo-%Pred-Pre 102 % FEFMax-Pred 6.30 L/E/sec FEFMax-Pre 5.21 L/E/sec FEFMax-%Pred-Pre 82 L/E/sec FEFMax-LLN 4.63 L/E/sec Nli9107-Mutt 2.42 L/E/sec Ioh7736-Jcg 2.42 L/E/sec Bcb6015-%Pred-Pre 100 L/E/sec Xnz7850-GJU 1.22 L/E/sec ExpTime-Pre 7.31 sec Oqi4ebx8-Kjqq 81 % Gah6lwh3-Igk 83 % Dqr7vjf7-%Pred-Pre 102 % Glr8coo7-AYT 72 % 1 Negative <20 Weak positive [...] Nucleosomes, Histones Drug-induced SLE --------- Speckled Sm, WINDOW TRIMMER APPRENTICE, SCL-70, SLE,MCTD,PSS (diffuse form), SS-A/SS-B Sjogrens --------- Nucleolar SCL-70, PM-1/SCL High titers Scleroderma, PM/DM --------- Centromere Centromere PSS (limited form) w/Crest syndrome variable --------- Nuclear Dot Sp100,q26-lofkdk Primary Biliary Cirrhosis --------- Nuclear GP210, Primary Biliary Cirrhosis Membrane loulou A,B,C --------- Performed at: - [facility] [id number] Sock Examiner: Deb Smith MD, Phone: [phone] Performed at: - [facility] [id number] Sock Examiner: Tree Moreland MD, Phone: [phone] Performed at: [facility] [address] [place] [id number] Sock Examiner: Nathan Frances MD, Phone: [phone] Negative: <20 Weak Positive: 20 - [...] - 80 Strong Positive: >80 Performed at: [facility] [address] [place] [id number] Sock Examiner: Nathan Frances MD, Phone: [phone] This test was developed and its performance characteristics determined by [facility]. It has not been cleared or approved by the Food and Drug Administration. Negative: <20 Weak Positive: 20 - 39 Moderate Positive: 40 - 80 Strong Positive: >80 Procedures Date Code Description Status 05/07/2021 33201 Office/Outpatient New Moderate M DM 45-59 Minutes Completed Medical Devices Description No Information Available Encounters Type Date Location Provider Dx Diagnosis Office Visit 05/07/2021 2:45p [facility] M mary Arroyo M.D. R91.8 Other [...] the EMN then will get CT chest [facility] protocol, fup 1 week after procedure Functional Status Description No Information Available Mental Status Description No Information Available Referrals Refer to Reason for Referral Status Appt Date Cash Arroyo M.D. LUNG INFILTRATE Closed [address] [place] [address]-Pulmonary [address] [place] [address] [phone]
--- OUTSIDE RECORDS SUMMARY | 2021-06-17 07:33 | CCD | Continuity of Care Document ---
Author Author Pulmonary Lab, Silvia Rossi Organization Unknown Address [address] [place] [address] Phone [phone] Care Team Providers Care Piano Regulator Inspector Name Role Phone Yonatanshwetha Jett Cooley AUTM Problems Description No Information Available Social [...] lb BMI (Body Mass Index) 40.4 kg/m2 [place] Body Weight 115 lb Weight 103.421 kg BSA (Body Surface Area) 2.04 m2 05/07/2021 2:35pm BP Systolic 140 mmHg BP Diastolic 80 mmHg Heart Rate 76 /min O2 % BldC Oximetry 97 % Room Air Height 63 inches 5'3" Weight 232.00 lb BMI (Body Mass Index) 41.1 kg/m2 [place] Body Weight 115 lb Weight 105.235 kg BSA (Body Surface Area) 2.06 m2 Results Test Acquired Date Facility Test Result H/L Range Note Laboratory test finding 05/13/2021 [facility] Main Lab [address] [place] [address]2235 [phone] Erythrocyte Sedimentation Rate 68 mm/hr High 0 -30 Rheumatoid Factor Quant < 10.0 IU/mL Normal <15.0 Anti Double Strand Dna Allyson 05/13/2021 [facility] Main Lab [address] [place] [address] 53815 [phone] Anti DS-Dna AB Negative Normal Negative Laboratory test finding 05/13/2021 [facility] Main Lab [address] [place] [address] 70000 [phone] Cyclic Citrullinated Peptide 10 units Normal 0-1 9 1 Ariana Titer & Pattern 05/13/2021 [facility] [address] [place] [address] 71399 [phone] Ariana (Hep2) Positive Abnormal . 2 Ariana Homogeneous Pattern TNP Normal . Ariana Nucleolar Pattern TNP Normal . Ariana Speckled Pattern TNP Normal . Ariana Centromere Pattern TNP Normal . Ariana Spindle Apparatus Pattern TNP Normal . Ariana Nuclear Membrane Pattern 1:80 Normal . 3 Ariana Midbody Pattern TNP Normal . Ariana Nuclear Dot Pattern 1:320 High . 4 Ariana Pcna Pattern TNP Normal . Ariana Centriole Pattern TNP Normal . Ariana Note (SEE NOTE) Normal . 5 Laboratory test finding 05/13/2021 [facility] Main Lab [address] [place] [address]39 [phone] CPK Creatine Phosphokinase 72 U/L Normal 26-19 2 Aldolase 4.4 U/L Normal 3.3-10.3 Anti-Sjogrens A&B Antibodies 05/13/2021 [facility] Main Lab [address] [place] [address] 84240 [phone] Ssa Sjogrens A <0.2 AI Normal 0.0-0.9 SSB Sjogrens B <0.2 AI Normal 0.0-0.9 Laboratory test finding 05/13/2021 [facility] Main Lab [address] [place] [address] [phone] Anti Scleroderma Antibodies <0.2 AI Normal 0.0- 0.9 Anti Centromere Antibody <0.2 AI Normal 0.0-0.9 Rna Polymerase III IgG Abs <20 units Normal <20 6 Anti Gwnedolyn-1 Antibodies <20 units Normal <20 7 Anti-PL-12 [...] 18 Anti Allyssa Extractable Nuclear A 05/13/2021 [facility] Main Lab [address] [place] [address] 47590 [phone] [place]s Antibody < 0.2 AI Normal 0.0-0.9 ELECTROENCEPHALOGRAPH TECHNOLOGIST Antibody 0.2 AI Normal 0.0-0.9 Laboratory test finding 05/13/2021 [facility] Main Lab [address] [place] [address] [phone] Anti-U1 ELECTROENCEPHALOGRAPH TECHNOLOGIST AB <20 units Normal <20 19 FVL/[place] 05/07/2021 [facility] PDFReport SEE IMAGE FVC-Pred 3.26 L FVC-Pre 2.85 L FVC-%Pred-Pre 87 L FVC-LLN 2.59 L Fev1-Pred 2.54 L Fev1-Pre 2.35 L Fev1-%Pred-Pre 92 L Fev1-LLN 1.97 L Fev6-Pred 3.16 L Fev6-Pre 2.83 L Fev6-%Pred-Pre 89 L Fev6-LLN 2.50 L Hpf1kbl-Hrqx 79 % Dmq7zmf-Lao 83 % Gas8mtz-%Pred-Pre 104 % Nmw7cbd-DUF 69 % Klk9oyg-Ixdh 97 % Xum5buh-Nwp 100 % Btx5dry-%Pred-Pre 102 % FEFMax-Pred 6.30 L/E/sec FEFMax-Pre 5.21 L/E/sec FEFMax-%Pred-Pre 82 L/E/sec FEFMax-LLN 4.63 L/E/sec Bir8685-Mkme 2.42 L/E/sec Whl8565-Qzk 2.42 L/E/sec Wij3923-%Pred-Pre 100 L/E/sec Pue4295-QMJ 1.22 L/E/sec ExpTime-Pre 7.31 sec Dgv9fhs6-Bhmz 81 % Ojg1lrt2-Iga 83 % Uew7wjx3-%Pred-Pre 102 % Tgf5ryh6-VIF 72 % 1 Negative <20 Weak positive 20 - 39 Moderate positive 40 - 59 Strong positive >59 2 Negative <1:80 Borderline 1:80 Positive >1:80 3 ICAP nomenclature: AC-11,12 4 ICAP nomenclature: AC-6,7 5 . For more information about Hep-2 cell patterns use ANApatterns.org, the official website for the International Consensus on Antinuclear Antibody (ARIANA) Patterns (ICAP). A positive ARIANA result may occur in healthy individuals (low titer) or be associated with a variety of diseases. See interpretation chart which is not all inclusive: . Pattern Antigen Detected Suggested Disease Association --------- Homogeneous DNA(ds,ss), SLE - High titers Nucleosomes, Histones Drug-induced SLE --------- Speckled Sm, ELECTROENCEPHALOGRAPH TECHNOLOGIST, SCL-70, SLE,MCTD,PSS (diffuse form), SS-A/SS-B Sjogrens --------- Nucleolar SCL-70, PM-1/SCL High titers Scleroderma, PM/DM --------- Centromere Centromere PSS (limited form) w/Crest syndrome variable --------- Nuclear Dot Sp100,s75-inycua Primary Biliary Cirrhosis --------- Nuclear GP210, Primary Biliary Cirrhosis Membrane loulou A,B,C --------- Performed at: - [facility], [place] [id number] Client Services Vice President: Deb Smith MD, Phone: [phone] Performed at: - [facility] [address] [id number] Client Services Vice President: Tree Moreland MD, Phone: [phone] Performed at: [facility] [address] [id number] Client Services Vice President: Nathan Frances MD, Phone: [phone] Negative: <20 Weak Positive: 20 - [...] statins (Ireland JL et al. Arthritis Rheum 2012;64(12):4083-93). 18 Negative: <20 Weak Positive: 20 - 39 Moderate Positive: 40 - 80 Strong Positive: >80 Performed at: [facility] [address] [place] [id number] Client Services Vice President: Nathan Frances MD, Phone: [phone] This test was developed and its performance characteristics determined by [facility]. It has not been cleared or approved by the Food and Drug Administration. Negative: <20 Weak Positive: 20 - 39 Moderate Positive: 40 - 80 Strong Positive: >80 Procedures Date Code Description Status 06/04/2021 26767 Office/Outpatient Established Mo d MDM 30-39 Min Completed 06/04/2021 30871 Diffusing Capacity Completed 06/04/2021 33408 Plethysmography Determination Audrey ng Volumes & Per Airway Resist Completed 06/04/2021 35336 Bronchospasm Evaluation Complete d 05/07/2021 82331 Office/Outpatient New Moderate M DM 45-59 Minutes [...] the EMN then will get CT chest [place] robot [facility] protocol, fup 1 week after procedure Functional Status Description No Information Available Mental Status Description No Information Available Referrals Refer to Dr Reason for Referral Status Appt Date Cash Arroyo M.D. LUNG INFILTRATE Closed 021 [facility]-P[facility] [address] [place] [address] [phone]
--- OUTSIDE RECORDS SUMMARY | 2021-06-17 07:34 | CCD | Continuity of Care Document ---
Author Author Silvia ARROYO M.D. Organization Unknown Address [address] [place] [address] Phone [phone] Care Team Providers Care Die Operator Name Role Phone Jett Cadet AUTM Problems Description No Information Available Social History Type Date Description Comments Sex Unknown Tobacco Use Start: 07/18/79 End: 07/18/86 Patient is a forme r smoker 6 cig a day x 6 years Smoking Status Reviewed: 05/07/21 Patient is a former smoker 6 cig [...] Available Vital Signs Date Vital Result Comment 05/07/2021 2:35pm BP Systolic 140 mmHg BP Diastolic 80 mmHg Heart Rate 76 /min O2 % BldC Oximetry 97 % Room Air Height 63 inches 5'3" Weight 232.00 lb BMI (Body Mass Index) 41.1 kg/m2 [place] Body Weight 115 lb Weight 105.235 kg BSA (Body Surface Area) 2.06 m2 Results Test Acquired Date Facility Test Result H/L Range Note FVL/[place] 05/07/2021 [facility] PDFReport SEE IMAGE FVC-Pred 3.26 L FVC-Pre 2.85 L FVC-%Pred-Pre 87 L FVC-LLN 2.59 L Fev1-Pred 2.54 L Fev1-Pre 2.35 L Fev1-%Pred-Pre 92 L Fev1-LLN 1.97 L Fev6-Pred 3.16 L Fev6-Pre 2.83 L Fev6-%Pred-Pre 89 L Fev6-LLN 2.50 L Ntp5slq-Uxax 79 % Xay1nvm-Qyp 83 % Orv1vke-%Pred-Pre 104 % Hel0cty-EYR 69 % Llr5iin-Rpsk 97 % Tmd3cux-Ryh 100 % Igs1ghx-%Pred-Pre 102 % FEFMax-Pred 6.30 L/E/sec FEFMax-Pre 5.21 L/E/sec FEFMax-%Pred-Pre 82 L/E/sec FEFMax-LLN 4.63 L/E/sec Zvw4878-Czfd 2.42 L/E/sec Gxi7756-Wvm 2.42 L/E/sec Mek8328-%Pred-Pre 100 L/E/sec Fus8705-NON 1.22 L/E/sec ExpTime-Pre 7.31 sec Zmc3kjz5-Edkk 81 % Znk2azi1-Okv 83 % Sgs6qmf2-%Pred-Pre 102 % Ymy0tvp8-GAQ 72 % Procedures Date Code Description Status 05/07/2021 09819 Office/Outpatient New Moderate M DM 45-59 Minutes Completed Medical Devices Description No Information Available Encounters Type Date Location Provider Dx Diagnosis Office Visit 05/07/2021 2:45p [facility] M mary Arroyo M.D. R91.8 Other nonspecific abnormal f inding of lung field Assessments Date Code Description Provider 05/07/2021 R91.8 Other nonspecific abnormal findi ng of lung field Cash Arroyo M.D. Plan of Treatment 05/07/2021 - Cash Campitelli, M.D.* R91.8 Other nonspecific abnormal finding of lung field * * New Labs:* PFT W/HGB On Meds, Ordered: 05/07/21 * Erythrocyte Sedimentation Rate, Ordered: 05/07/21 * Rheumatoid Factor Quant, Ordered: 05/07/21 * Anti Double Strand Dna Allyson, Ordered: 05/07/21 * Cyclic Citrullinated Peptide Igg, Ordered: 05/07/21 * Candi Titer & Pattern, Ordered: 05/07/21 * CPK Creatine Phosphokinase, Ordered: 05/07/21 * Aldolase, Ordered: 05/07/21 * Anti-Sjogrens A&B Antibodies, Ordered: 05/07/21 * Anti Scleroderma Antibodies, Ordered: 05/07/21 * Anti Centromere Antibody, Ordered: 05/07/21 * Rna Polymerase III Igg Abs, Ordered: 05/07/21 * Anti Gwendolyn-1 Antibodies, Ordered: 05/07/21 * Anti-PL-12 AB, Ordered: 05/07/21 * Anti-Oj AB, Ordered: 05/07/21 * Anti-Ej AB, Ordered: 05/07/21 * Miscellaneous Test Lab, Ordered: 05/07/21 * Anti-SRP AB, Ordered: 05/07/21 * MA-2 Antibodies, Ordered: 05/07/21 * Anti-Mda5 AB (Cadm-140), Ordered: 05/07/21 * Anti-NXP-2 (MJ) AB, Ordered: 05/07/21 * Anti-Tif-1 (P155) AB, Ordered: 05/07/21 * Cristofer 1 Igg Antibody, Ordered: 05/07/21 * Anti-HMGCR AB Igg, Ordered: 05/07/21 * New Xrays:* CT Chest W/O Contrast, Ordered: 05/07/21 * Follow up:* fup after CT chest and will do PFTs when available, will call with results of pfts Functional Status Description No Information Available Mental Status Description No Information Available Referrals Refer to Dr Reason for Referral Status Appt Date Cash Arroyo M.D. LUNG INFILTRATE Scheduled 021 [facility]-Pulmonary [address] [place] [address] [phone]
--- OUTSIDE RECORDS SUMMARY | 2021-06-17 07:34 | CCD ---
Author Author [facility] er Organization [facility] er Address Unknown Phone Unavailable Care Team Providers Care Communications Officer Name Role Phone Jett Cadet Unavailable PROBLEMS Type Condition ICD9-CM Code CAJ37-YO Code Onset Dates Condition S tatus W/U Status Risk SNOMED Code Notes Problem Dyslipidemia E78.5 Active confirmed 7010304 07 Problem Prediabetes R73.03 Active confirmed 54700318 2 Problem Body mass index (BMI) 50.0-59.9, adult Z68.43 A ctive confirmed 756655569 Problem Bilateral carpal tunnel syndrome G56.03 Active conf irmed 40093263 Problem Morbid (severe) obesity due to excess calories E66 .01 Active confirmed 326747508 Problem Umbilical hernia without obstruction or gangrene K 42.9 Active confirmed 770609074 Problem Rectocele N81.6 Active confirmed 923496921 Problem Cystocele with prolapse N81.4 Active confirmed 199022077 Problem Infiltrating ductal carcinoma of left female breast C50.912 Active confirmed 563865473 Problem S/P PICC central line placement Z95.828 Active confirmed 328141345 Problem Mixed stress and urge urinary incontinence N39.46 Active confirmed 655440978 Problem 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.3 Active confirmed 3 73558692 Problem Abnormal mammogram of left breast R92.8 Active confirmed 585535374 Problem Invasive ductal carcinoma of left breast, stage 1 C50.912 Active confirmed 227494855 Problem Factor V Leiden mutation D68.51 24 Sep, 1999 Active co nfirmed 832947864 Problem GERD without esophagitis K21.9 Active confirmed 530172044 Problem Perforated diverticulum K57.80 Active confirmed 05829225 ALLERGIES Allergen (clinical drug ingredient) Drug/Non Drug Allergy do cumented on EMR Reaction Allergy Type Onset Date Status Tylenol With Codeine 3 Analgesics - Opioid Unknown Non Drug Allergy Active enoxaparin Lovenox([facility] Code:[address]-24) rash Drug Allergy Active ENCOUNTERS from 1965 to 2021-04-22 Encounter Location Date Provider Diagnosis [facility] Internal Medicine [address] [facility] [address] [place] [address] Apr, Jett Cadet Perforated diverticu lum K57.80 ; Routine adult health maintenance Z00.00 ; Morbid (severe) obesity due to excess calories E66.01 ; Body mass index (BMI) 50.0-59.9, adult Z68.43 ; Umbilical hernia without obstruction or gangrene K42.9 ; Prediabetes R73.03 ; Invasive ductal carcinoma of left breast, stage 1 C50.912 ; Acute deep vein thrombosis (DVT) of femoral vein of right lower extremity I82.411 ; Immunization not carried out because of patient refusal Z28.21 and Dyslipidemia E78.5 IMMUNIZATIONS Vaccine Route Administration Date Status Influenza, seasonal unspecified Unknown Apr 22, 2021 Refused Influenza, seasonal unspecified Unknown May 12, 2020 Pending Influenza, seasonal unspecified Unknown Sep 05, 2019 Pending SOCIAL HISTORY Tobacco Use: Social History Observation Description Date Details (start date - stop date) Never Smoker Sex Assigned At : Social History Observation Description Sex Assigned At Unknown Alcohol Screen (Audit-C) Question Answer Notes Did you have a drink containing alcohol in the past year? No Points 0 Interpretation Negative DAST-10 Question Answer Notes Total Score: 0 Interpretation: No problems reported Tobacco Use/Smoking Question Answer Notes Patient is a never smoker Sexual History Question Answer Notes Had sex in the past 12 months (vaginal, oral, or anal)? No Have you ever had a Sexually transmitted disease? No REASON FOR REFERRAL No Information VITAL SIGNS Height 65 in Apr, Height-cm 165.1 cm Apr, Weight 230 lbs Apr, Weight-kg 104.33 kg Apr, BMI 38.27 kg/m2 Apr, Temperature 98.1 degrees Fahrenheit Apr, Heart Rate 80 /min Apr, Oximetry 94 % Apr, Blood pressure systolic 114 mm Hg Apr, Blood pressure diastolic 60 mm Hg Apr, MEDICATIONS Medication SIG (Take, Route, Frequency, Duration) Notes Start Da te End Date Status oxyCODONE HCl 5 MG 1-2 tablet as needed Orally every 4 hrs PRN As ne eded Active Xarelto 20 MG 1 tablet with food Orally Once a day for 90 days Jan, Active Lidocaine Pain Relieving 4 % as directed Externally daily PRN Active MiraLax 17 GM/SCOOP as directed Orally as needed Active Acetaminophen Extra Strength 500 MG 1 tablet as needed Orally every 6 hrs Active Senna 8.6 MG 1- 2 tablets at bedtime as needed Orally Once a day PRN as needed Active Letrozole 2.5 MG 1 tablet Orally Once a day for 30 day(s) Active Albuterol Sulfate (2.5 MG/3ML) 0.083% 3 ml as needed Inhalation every 8 hrs PRN Active DuoDerm Signal Dressing - as directed Externally Daily for 30 da ys Oct, Active Vitamin D (Ergocalciferol) 1.25 MG (30891 UT) Oral for 84 Active Docusate Sodium 100 MG 1 capsule as needed Orally Once a day for 30 day(s) as needed Active PROCEDURES No Information RESULTS No Results REASON FOR VISIT 6 month f/u, Annual, Flu shot Refusal MEDICAL (GENERAL) HISTORY Type Description Date Medical History Body mass index (BMI) 50.0-59.9, adult Medical History Morbid (severe) obesity due to excess ca lories Medical History Umbilical hernia without obstruction or gangrene Medical History left breast cancer DCIS Medical History Possible diverticulitis May 2020 CT Scan Medical History Abcess in colon June 2020 Medical History Blood clot in right leg January 2020 Surgical History Cholecystectomy ; Surgical History tumor removed left breast x2 Surgical History hernia repair, partial block age/perfuration bowel, sigmoid colon removed, colostomy 09/2020 Hospitalization History see surgical list Hospitalization History [facility] 09/2020 Hospitalization History [facility] 10/2020 Goals Section No Information Health Concerns No Information MEDICAL EQUIPMENT No Information MENTAL STATUS No Information FUNCTIONAL STATUS No Information ASSESSMENTS Encounter Date Diagnosis Assessment Notes Treatment Notes Treatm ent Clinical Notes Apr, Perforated diverticulum (ICD-10 - K57.80) She appears to be doing very well today. She is hoping to pursue colostomy reversal in the near future at [facility] Apr, Routine adult health maintenance (ICD-10 - Z00.0 0) Following with STUDENT SERVICES REPRESENTATIVE Colonoscopy-completed 08/2020. Showed diverticulosis. Apr, Morbid (severe) obesity due to excess calories ( ICD-10 - E66.01) Diet/exercise counseling. Apr, Body mass index (BMI) 50.0-59.9, adult (ICD-10 - Z68.43) Apr, Umbilical hernia without obstruction or gangrene (ICD-10 - K42.9) Stable Apr, Prediabetes (ICD-10 - R73.03) diet counseling. Apr, Invasive ductal carcinoma of left breast, stage 1 (ICD-10 - C50.912) Following with specialists. Apr, Acute deep vein thrombosis ( DVT) of femoral vein of right lower extremity (ICD-10 - I82.411) Continue Xarelto at this time Apr, Immunization not carried out because of patient refusal (ICD-10 - Z28.21) Apr, Dyslipidemia (ICD-10 - E78.5) PLAN OF TREATMENT Treatment Notes Assessment Notes Clinical Notes Perforated diverticulum She appears to be doing very well today. She is hoping to pursue colostomy reversal in the near future at [facility] Routine adult health maintenance Following with GYNCol onoscopy-completed 08/2020. Showed diverticulosis. Morbid (severe) obesity due to excess calories Diet/exercise counseling. Umbilical hernia without obstruction or gangrene Stable Prediabetes diet counseling. Invasive ductal carcinoma of left breast, stage 1 Following with specialists. Acute deep vein thrombosis (DVT) of femoral vein of ri ght lower extremity Continue Xarelto at this time Treatment Notes Test Name Order Date CMP COMPREHENSIVE METABOLIC PROFILE 2021-04-22 HEMOGLOBIN A1C 2021-04-22 URINALYSIS 2021-04-22 LIPID PROFILE 2021-04-22 CBC 2021-04-22 Next Appt Details 6 Months Reason: Provider Name:Jett Cadet, 08:30:00 AM, [address] [facility], [address], [place], [address], Provider Name:Lcuy Avelar, 2022-02-10 02:00:00 PM, [address], [address], Insurance Providers Payer Name Payer Address Payer Phone Insured Name Patient Relati onship to Insured Coverage Start Date Coverage End Date [facility] [address] [address] [facility] [address] ANJALI ALBERTO elf
--- OUTSIDE RECORDS SUMMARY | 2021-06-17 07:34 | CCD | Continuity of Care Document ---
Author Author Pulmonary Lab, [facility] Organization Unknown Address [address] [place] [address] Phone [phone] Care Team Providers Care Structural Drafter Name Role Phone Yonatanshwetha Jett Cooley AUTM [...] lb BMI (Body Mass Index) 40.4 kg/m2 Justin Body Weight 115 lb Weight 103.421 kg BSA (Body Surface Area) 2.04 m2 05/07/2021 2:35pm BP Systolic 140 mmHg BP Diastolic 80 mmHg Heart Rate 76 /min O2 % BldC Oximetry 97 % Room Air Height 63 inches 5'3" Weight 232.00 lb BMI (Body Mass Index) 41.1 kg/m2 Justin Body Weight 115 lb Weight 105.235 kg BSA (Body Surface Area) 2.06 m2 Results Test Acquired Date Facility Test Result H/L Range Note Laboratory test finding 05/13/2021 [facility] Main Lab [address] [place] [address] [phone] Erythrocyte Sedimentation Rate 68 mm/hr High 0 -30 Rheumatoid Factor Quant < 10.0 IU/mL Normal <15.0 Anti Double Strand Dna Allyson 05/13/2021 [facility] Main Lab [address] [place] [address]6781 [phone] Anti DS-Dna AB Negative Normal Negative Laboratory test finding 05/13/2021 [facility] Main Lab [address] [place] [address] [phone] Cyclic Citrullinated Peptide 10 units Normal 0-1 9 1 Ariana Titer & Pattern 05/13/2021 [facility] Main Lab [address] [place] [address] [phone] Ariana (Hep2) Positive Abnormal . 2 Ariana [...] Normal . 5 Laboratory test finding 05/13/2021 [facility] Main Lab [address] [place] [address] [phone] CPK Creatine Phosphokinase 72 U/L Normal 26-19 2 Aldolase 4.4 U/L Normal 3.3-10.3 Anti-Sjogrens A&B Antibodies 05/13/2021 [facility] Main Lab [address] [place] [address] [phone] Ssa Sjogrens A <0.2 AI Normal 0.0-0.9 SSB Sjogrens B <0.2 AI Normal 0.0-0.9 Laboratory test finding 05/13/2021 [facility] Main Lab [address] [place] [address] [phone] Anti Scleroderma Antibodies <0.2 AI Normal 0.0- [...] 18 Anti Allyssa Extractable Nuclear A 05/13/2021 [facility] Main Lab [address] [place] [address]66 [phone] Smiths Antibody < 0.2 AI Normal 0.0-0.9 RECEIVING CLERK Antibody 0.2 AI Normal 0.0-0.9 Laboratory test finding 05/13/2021 [facility] Main Lab [address] [place] [address] [phone] Anti-U1 RECEIVING CLERK AB <20 units Normal <20 19 FVL/Mayur 05/07/2021 [employer] PD[facility]eport SEE IMAGE FVC-Pred 3.26 L FVC-Pre 2.85 L FVC-%Pred-Pre 87 L FVC-LLN 2.59 L Fev1-Pred 2.54 L Fev1-Pre 2.35 L Fev1-%Pred-Pre 92 L Fev1-LLN 1.97 L Fev6-Pred 3.16 L Fev6-Pre 2.83 L Fev6-%Pred-Pre 89 L Fev6-LLN 2.50 L Uae5iru-Btgc 79 % Ygv5pkg-Rfw 83 % Toi7mxr-%Pred-Pre 104 % Iop0vhn-SDH 69 % Noo1hem-Gjar 97 % Ivj4yim-Lzy 100 % Qug0jys-%Pred-Pre 102 % FEFMax-Pred 6.30 L/E/sec FEFMax-Pre 5.21 L/E/sec FEFMax-%Pred-Pre 82 L/E/sec FEFMax-LLN 4.63 L/E/sec Akm3725-Xwuy 2.42 L/E/sec Tzv5687-Yng 2.42 L/E/sec Fjh0465-%Pred-Pre 100 L/E/sec Xgk9554-HVY 1.22 L/E/sec ExpTime-Pre 7.31 sec Dwp6esz5-Mszf 81 % Oma8tdf8-Fqc 83 % Mys3aos6-%Pred-Pre 102 % Tmk3qfo4-IGS 72 % 1 Negative <20 Weak positive [...] Nucleosomes, Histones Drug-induced SLE --------- Speckled Sm, RECEIVING CLERK, SCL-70, SLE,MCTD,PSS (diffuse form), SS-A/SS-B Sjogrens --------- Nucleolar SCL-70, PM-1/SCL High titers Scleroderma, PM/DM --------- Centromere Centromere PSS (limited form) w/Crest syndrome variable --------- Nuclear Dot Sp100,b09-amhabw Primary Biliary Cirrhosis --------- Nuclear GP210, Primary Biliary Cirrhosis Membrane loulou A,B,C --------- Performed at: - [facility], [place] [id number] Nurses' Registry Director: Deb Smith MD, Phone: [phone] Performed at: - [facility] [address] [id number] Nurses' Registry Director: Tree Moreland MD, Phone: [phone] Performed at: [facility] [address] [id number] Nurses' Registry Director: Nathan Frances MD, Phone: [phone] Negative: <20 Weak Positive: 20 - [...] statins (Ireland JL et al. Arthritis Rheum 2012;64(12):4081-93). 18 Negative: <20 Weak Positive: 20 - 39 Moderate Positive: 40 - 80 Strong Positive: >80 Performed at: [employer]. [address] [place] [id number] Nurses' Registry Director: Nathan Frances MD, Phone: [phone] This test was developed and its performance characteristics determined by [facility]. It has not been cleared or approved by the Food and Drug Administration. Negative: <20 Weak Positive: 20 - 39 Moderate Positive: 40 - 80 Strong Positive: >80 Procedures Date Code Description Status 05/07/2021 04294 Office/Outpatient New Moderate M DM 45-59 Minutes Completed Medical Devices Description No Information Available Encounters Type Date Location Provider Dx Diagnosis Office Visit 05/07/2021 2:45p [facility] M mary Arroyo M.D. R91.8 Other [...] the EMN then will get CT chest [facility] protocol, fup 1 week after procedure Functional Status Description No Information Available Mental Status Description No Information Available Referrals Refer to Reason for Referral Status Appt Date Cash Arroyo M.D. LUNG INFILTRATE Closed 021 [facility] [address], [address] [place] [address] [phone]
--- OUTSIDE RECORDS SUMMARY | 2021-06-17 07:34 | CCD ---
Author Author [facility] [place] [facility] er Organization [facility] er Address Unknown Phone Unavailable Care Team Providers Care Cd Storage And Materials Make Up Helper Name Role Phone Jett Cadet Unavailable PROBLEMS Type Condition ICD9-CM Code GFN21-PY Code Onset Dates Condition S tatus W/U Status Risk SNOMED Code Notes Problem Dyslipidemia E78.5 Active confirmed 7434083 07 Problem Prediabetes R73.03 Active confirmed 63328495 2 Problem Body mass index (BMI) 50.0-59.9, adult Z68.43 A ctive confirmed 829775452 Problem Bilateral carpal tunnel syndrome G56.03 Active conf irmed 84415743 Problem Morbid (severe) obesity due to excess calories E66 .01 Active confirmed 909381888 Problem Umbilical hernia without obstruction or gangrene K 42.9 Active confirmed 737160867 Problem Rectocele N81.6 Active confirmed 777103662 Problem Cystocele with prolapse N81.4 Active confirmed 823965569 Problem Infiltrating ductal carcinoma of left female breast C50.912 Active confirmed 308984160 Problem S/P PICC central line placement Z95.828 Active confirmed 593354143 Problem Mixed stress and urge urinary incontinence N39.46 Active confirmed 621579964 Problem 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.3 Active confirmed 3 81975610 Problem Abnormal mammogram of left breast R92.8 Active confirmed 993399249 Problem Invasive ductal carcinoma of left breast, stage 1 C50.912 Active confirmed 795118875 Problem Factor V Leiden mutation D68.51 24 Sep, 1999 Active co nfirmed 325514781 Problem GERD without esophagitis K21.9 Active confirmed 751881663 Problem Perforated diverticulum K57.80 Active confirmed 69718624 ALLERGIES Allergen (clinical drug ingredient) Drug/Non Drug Allergy do cumented on EMR Reaction Allergy Type Onset Date Status Tylenol With Codeine 3 Analgesics - Opioid Unknown Non Drug Allergy Active enoxaparin Lovenox([facility] Code:[address]-44) rash Drug Allergy Active ENCOUNTERS from 1965 to 2021-05-04 Encounter Location Date Provider Diagnosis [facility] Internal Medicine [address] [facility] [address] [place] [address] Apr, Jett Cadet Lung infiltrate R91. 8 IMMUNIZATIONS Vaccine Route Administration Date Status Influenza, [...] Sexually transmitted disease? No REASON FOR REFERRAL from 1965 to 2021-05-[address] of her abdo men/pelvis on 04/01/2021 at [facility] which showed bibasilar infiltrates worrisome for possible Covid. Covid PCR was negative. She remains asymptomatic. Chest x-ray showed possible pneumonia. She was given oral antibiotics. She continues to remain asymptomatic. Repeat chest x-ray shows pneumonia has progressed.|Patient is seeking to pursue colostomy reversal at [facility] in the near future and will need pulmonology clearance|please also r/o hypersensitivity pneumonitis Or possibly bronchiolitis obliterans organizing pneumonia (BOOP)|URGENT Diagnosis 1 Lung infiltrate (R91.8) Referral Organization [facility] Nephrology Referring Provider First Name Jett Referring Provider Last Name Helio Referring Provider Specialty Nurse Practitioner Referred Provider Roland Hayes Referred Provider Specialty Pulmonology Referral Priority Urgent General Notes Anuja Broussard 05/04/2021 11 :53:49 AM > Please notify our office once appt has been made. thank you! complete VITAL SIGNS No information MEDICATIONS Medication SIG (Take, Route, Frequency, Duration) [...] Oct, Active Vitamin D (Ergocalciferol) 1.25 MG (90488 UT) Oral for 84 Active Docusate Sodium 100 MG 1 capsule as needed Orally Once a day for 30 day(s) as needed Active PROCEDURES No Information RESULTS No Results REASON FOR VISIT CXR review MEDICAL (GENERAL) HISTORY Type Description Date Medical [...] Hospitalization History see surgical list Hospitalization History [facility] 09/2020 Hospitalization History [facility] 10/2020 Goals Section No Information Health Concerns No Information MEDICAL EQUIPMENT No Information MENTAL STATUS No Information FUNCTIONAL STATUS No Information ASSESSMENTS Encounter Date Diagnosis Assessment Notes Treatment Notes Treatm ent Clinical Notes Apr, Lung infiltrate (ICD-10 - R91.8) PLAN OF TREATMENT Referrals Referral Date Details Patient had a CT of her abdo men/pelvis on 04/01/2021 at [facility] which showed bibasilar infiltrates worrisome for possible Covid. Covid PCR was negative. She remains asymptomatic. Chest x-ray showed possible pneumonia. She was given oral antibiotics. She continues to remain asymptomatic. Repeat chest x-ray shows pneumonia has progressed.|Patient is seeking to pursue colostomy reversal at [facility] in the near future and will need pulmonology clearance|please also r/o hypersensitivity pneumonitis Or possibly bronchiolitis obliterans organizing pneumonia (BOOP)|URGENT, Roland Hayes Next Appt Details Provider Name:Jett Cadet, 08:30:00 AM, [address] [facility], [address], [address], Provider Name:Lucy Avelar, 2022-02-10 02:00:00 PM, [address] [facility] [place], [address], Insurance Providers Payer Name Payer Address Payer Phone Insured Name Patient Relati onship to Insured Coverage Start Date [facility]age End Date [facility] [address] [address] [facility] [id number] ANJALI ALBERTO elf"
--- OUTSIDE RECORDS SUMMARY | 2021-06-17 07:34 | CCD ---
Author Author [facility] [place] [facility] er Organization [facility] er Address Unknown Phone Unavailable Care Team Providers Care Mess Attendant Name Role Phone Jett Cadet Unavailable PROBLEMS Type Condition ICD9-CM Code OCL70-XC Code Onset Dates Condition S tatus W/U Status Risk SNOMED Code Notes Problem Dyslipidemia E78.5 Active confirmed 3028676 07 Problem Prediabetes R73.03 Active confirmed 57135005 2 Problem Body mass index (BMI) 50.0-59.9, adult Z68.43 A ctive confirmed 217235728 Problem Bilateral carpal tunnel syndrome G56.03 Active conf irmed 77474314 Problem Morbid (severe) obesity due to excess calories E66 .01 Active confirmed 920315201 Problem Umbilical hernia without obstruction or gangrene K 42.9 Active confirmed 061718117 Problem Rectocele N81.6 Active confirmed 371978025 Problem Cystocele with prolapse N81.4 Active confirmed 479549257 Problem Infiltrating ductal carcinoma of left female breast C50.912 Active confirmed 428275148 Problem S/P PICC central line placement Z95.828 Active confirmed 961112848 Problem Mixed stress and urge urinary incontinence N39.46 Active confirmed 823883832 Problem 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.3 Active confirmed 3 03913441 Problem Abnormal mammogram of left breast R92.8 Active confirmed 303014589 Problem Invasive ductal carcinoma of left breast, stage 1 C50.912 Active confirmed 592872484 Problem Factor V Leiden mutation D68.51 24 Sep, 1999 Active co nfirmed 116371411 Problem GERD without esophagitis K21.9 Active confirmed 877330049 Problem Perforated diverticulum K57.80 Active confirmed 32965998 ALLERGIES Allergen (clinical drug ingredient) Drug/Non Drug Allergy do cumented on EMR Reaction Allergy Type Onset Date Status Tylenol With Codeine 3 Analgesics - Opioid Unknown Non Drug Allergy Active enoxaparin Lovenox([facility] 2[facility] Code:[address]-85) rash Drug Allergy Active ENCOUNTERS from 1965 to 2021-04-01 Encounter Location Date Provider Diagnosis [facility] Internal Medicine [address] [facility] [address] [place] [address] Mar, Jett Helio IMMUNIZATIONS Vaccine Route Administration Date Status Influenza, seasonal unspecified Unknown May 12, 2020 [...] REASON FOR REFERRAL No Information VITAL SIGNS No information MEDICATIONS Medication SIG (Take, Route, Frequency, Duration) Notes Start Da te End Date Status Letrozole 2.5 MG 1 tablet Orally Once a day for 30 day(s) Active Vitamin D (Ergocalciferol) 1.25 MG (61699 UT) Oral for 84 Active oxyCODONE HCl 5 MG 1-2 tablet as needed Orally every 4 hrs PRN As ne eded Active Senna 8.6 MG 1- 2 tablets at bedtime as needed Orally Once a day PRN as needed Active Xarelto 20 MG 1 tablet with food Orally Once a day for 90 days Jan, Active Albuterol Sulfate (2.5 MG/3ML) 0.083% 3 ml as needed Inhalation every 8 hrs PRN Active DuoDerm Signal Dressing - as directed Externally Daily for 30 da ys Oct, Active MiraLax 17 GM/SCOOP as directed Orally as needed Active Acetaminophen Extra Strength 500 MG 1 tablet as needed Orally every 6 hrs Active Docusate Sodium 100 MG 1 capsule as needed Orally Once a day for 30 day(s) as needed Active Lidocaine Pain Relieving 4 % as directed Externally daily PRN Active Protonix 40 MG 1 tablet Orally twice a day for 30 day(s) 2 0 Jul, 2020 Active PROCEDURES No Information RESULTS No Results REASON FOR VISIT CT RESULTS MEDICAL (GENERAL) HISTORY Type Description Date Medical [...] Hospitalization History see surgical list Hospitalization History [facility] 09/2020 Hospitalization History [facility] 10/2020 Goals Section No Information Health Concerns No Information MEDICAL EQUIPMENT No Information MENTAL STATUS No Information FUNCTIONAL STATUS No Information ASSESSMENTS No Information PLAN OF TREATMENT Next Appt Details Provider Name:Jett Cadet, 08:30:00 AM, [address] [facility], [address], [place], [address], Provider Name:Lucy Avelar, 2022-02-10 02:00:00 PM, [address] [facility], [address], [place], [address], Insurance Providers Payer Name Payer Address Payer Phone Insured Name Patient Relati onship to Insured Coverage Start Date Coverage End Date [facility] [address] [address] [facility] [address] ANJALI ALBERTO
--- OUTSIDE RECORDS SUMMARY | 2021-06-17 07:34 | CCD ---
Author Author Osmar [place] [facility] er Organization Osmar Jose [facility] er Address Unknown Phone Unavailable Care Team Providers Care Brew House Supervisor Name Role Phone Jett Cadet Unavailable PROBLEMS Type Condition ICD9-CM Code [id number] Code Onset Dates Condition S tatus W/U Status Risk SNOMED Code Notes Problem Dyslipidemia E78.5 Active confirmed 2623316 07 Problem Prediabetes R73.03 Active confirmed 38211405 2 Problem Body mass index (BMI) 50.0-59.9, adult Z68.43 A ctive confirmed 849296366 Problem Bilateral carpal tunnel syndrome G56.03 Active conf irmed 88298937 Problem Morbid (severe) obesity due to excess calories E66 .01 Active confirmed 498535086 Problem Umbilical hernia without obstruction or gangrene K 42.9 Active confirmed 675174503 Problem Rectocele N81.6 Active confirmed 484908074 Problem Cystocele with prolapse N81.4 Active confirmed 027215515 Problem Infiltrating ductal carcinoma of left female breast C50.912 Active confirmed 677751520 Problem S/P PICC central line placement Z95.828 Active confirmed 963818711 Problem Mixed stress and urge urinary incontinence N39.46 Active confirmed 670725072 Problem 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.3 Active confirmed 3 50222169 Problem Abnormal mammogram of left breast R92.8 Active confirmed 963059592 Problem Invasive ductal carcinoma of left breast, stage 1 C50.912 Active confirmed 932469547 Problem Factor V Leiden mutation D68.51 24 Sep, 1999 Active co nfirmed 129882956 Problem GERD without esophagitis K21.9 Active confirmed 422920985 Problem Perforated diverticulum K57.80 Active confirmed 40924738 ALLERGIES Allergen (clinical drug ingredient) Drug/Non Drug Allergy do cumented on EMR Reaction Allergy Type Onset Date Status Tylenol With Codeine 3 Analgesics - Opioid Unknown Non Drug Allergy Active enoxaparin Lovenox([facility] Code:[address]-43) rash Drug Allergy Active ENCOUNTERS from 1964 to 2021-04-13 Encounter Location Date Provider Diagnosis [facility] Internal Medicine [address] [facility] [address] [place] [address] Mar, Jett Cadet Lung infiltrate R91. 8 IMMUNIZATIONS [...] Once a day for 30 day(s) Active Senna 8.6 MG 1- 2 tablets at bedtime as needed Orally Once a day PRN as needed Active DuoDerm Signal Dressing - as directed Externally Daily for 30 da ys Oct, Active Vitamin D (Ergocalciferol) 1.25 MG (51950 UT) Oral for 84 Active Protonix 40 MG 1 tablet Orally twice a day for 30 day(s) 2 0 Jul, 2020 Active Lidocaine Pain Relieving 4 % as directed Externally daily PRN Active MiraLax 17 GM/SCOOP as directed Orally as needed Active oxyCODONE HCl 5 MG 1-2 tablet as needed Orally every 4 hrs PRN As ne eded Active Xarelto 20 MG 1 tablet with food Orally Once a day for 90 days Jan, Active Docusate Sodium 100 MG 1 capsule as needed Orally Once a day for 30 day(s) as needed Active Albuterol Sulfate (2.5 MG/3ML) 0.083% 3 ml as needed Inhalation every 8 hrs PRN Active Azithromycin 250 MG 2 tablet on the first day, then 1 tablet daily for 4 days Orally Once a day for 5 day(s) Mar, A ctive Acetaminophen Extra Strength 500 MG 1 tablet as needed Orally every 6 hrs Active PROCEDURES No Information RESULTS No Results REASON FOR VISIT cxr review MEDICAL (GENERAL) HISTORY Type Description Date [...] Hospitalization History see surgical list Hospitalization History [facility] 09/2020 Hospitalization History [facility] 10/2020 Goals Section No Information Health Concerns No Information MEDICAL EQUIPMENT No Information MENTAL STATUS No Information FUNCTIONAL STATUS No Information ASSESSMENTS Encounter Date Diagnosis Assessment Notes Treatment Notes Treatm ent Clinical Notes Mar, Lung infiltrate (ICD-10 - R91.8) PLAN OF TREATMENT Medication Medication Name Sig Start Date Stop Date Azithromycin 250 MG 2 tablet on the first day, then 1 tablet daily for 4 days Orally Once a day for 5 day(s) Mar, Future Test Test Name Order Date X Ray Chest 2 Views [id number] Next Appt Details Provider Name:Jett Cadet, 08:30:00 AM, [address], [address], [address], Provider Name:Lucy Avelar, 2022-02-10 02:00:00 PM, [address], [address], Insurance Providers Payer Name Payer Address Payer Phone Insured Name Patient Relati onship to Insured Coverage Start Date Coverage End Date [employer] [address] [address] [place] [address] ANJALI ALBERTOf
--- OUTSIDE RECORDS SUMMARY | 2021-06-17 07:34 | CCD ---
Author Author Osmar [place] [facility] er Organization Osmar Jose [facility] er Address Unknown Phone Unavailable Care Team Providers Care Senior Warehouse Clerk Name Role Phone Jett Cadet Unavailable PROBLEMS Type Condition ICD9-CM Code NIT01-TE Code Onset Dates Condition S tatus W/U Status Risk SNOMED Code Notes Problem Dyslipidemia E78.5 Active confirmed 7702154 07 Problem Prediabetes R73.03 Active confirmed 69038570 2 Problem Body mass index (BMI) 50.0-59.9, adult Z68.43 A ctive confirmed 522616165 Problem Bilateral carpal tunnel syndrome G56.03 Active conf irmed 78797340 Problem Morbid (severe) obesity due to excess calories E66 .01 Active confirmed 563600407 Problem Umbilical hernia without obstruction or gangrene K 42.9 Active confirmed 499118196 Problem Rectocele N81.6 Active confirmed 238842473 Problem Cystocele with prolapse N81.4 Active confirmed 433725337 Problem Infiltrating ductal carcinoma of left female breast C50.912 Active confirmed 480136292 Problem S/P PICC central line placement Z95.828 Active confirmed 038125416 Problem Mixed stress and urge urinary incontinence N39.46 Active confirmed 569103326 Problem 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.3 Active confirmed 3 43125181 Problem Abnormal mammogram of left breast R92.8 Active confirmed 171965066 Problem Invasive ductal carcinoma of left breast, stage 1 C50.912 Active confirmed 518039627 Problem Factor V Leiden mutation D68.51 24 Sep, 1999 Active co nfirmed 515732051 Problem GERD without esophagitis K21.9 Active confirmed 117606931 Problem Perforated diverticulum K57.80 Active confirmed 81771611 ALLERGIES Allergen (clinical drug ingredient) Drug/Non Drug Allergy do cumented on EMR Reaction Allergy Type Onset Date Status Tylenol With Codeine 3 Analgesics - Opioid Unknown Non Drug Allergy Active enoxaparin Lovenox([facility] Code:[address]-19) rash Drug Allergy Active ENCOUNTERS from 1964 to 2021-04-03 Encounter Location Date Provider Diagnosis [facility] Internal Medicine [address] [facility] [address] [place] [address] Mar, Jett Cadet Lung infiltrate R91. 8 [...] day(s) Active Vitamin D (Ergocalciferol) 1.25 MG (80499 UT) Oral for 84 Active oxyCODONE HCl [...] Information RESULTS No Results REASON FOR VISIT Needs call back from office MEDICAL (GENERAL) HISTORY Type Description Date Medical [...] Hospitalization History see surgical list Hospitalization History [facility] 09/2020 Hospitalization History [facility] 10/2020 Goals Section No Information Health Concerns No Information MEDICAL EQUIPMENT No Information MENTAL STATUS No Information FUNCTIONAL STATUS No Information ASSESSMENTS Encounter Date Diagnosis Assessment Notes Treatment Notes Treatm ent Clinical Notes Mar, Lung infiltrate (ICD-10 - R91.8) PLAN OF TREATMENT Future Test Test Name Order Date X Ray Chest 2 Views [id number] Next Appt Details Provider Name:Jettprakash Cadet, 08:30:00 AM, [address] [facility], [address], [address], Provider Name:Lucy Valentino, 2022-02-10 02:00:00 PM, [address] [facility], [address], [place], [address], Insurance Providers Payer Name Payer Address Payer Phone Insured Name Patient Relati onship to Insured Coverage Start Date Coverage End Date [employer] [address] [address] [place] [address] ANJALI ALBERTO elf
--- OUTSIDE RECORDS SUMMARY | 2021-06-17 07:34 | CCD | Continuity of Care Document ---
Author Author Silvia ARROYO M.D. Organization Unknown Address [address] [place] [address] Phone [phone] Care Team Providers Care Vending Machine Mechanic Name Role Phone Jett Cadet AUTM [phone] Problems Description No Information Available Social [...] lb BMI (Body Mass Index) 41.1 kg/m2 [place] Body Weight 115 lb Weight 105.235 kg BSA (Body Surface Area) 2.06 m2 Results Test Acquired Date Facility Test Result H/L Range Note FVL/[place] 05/07/2021 [employer] PDFReport SEE IMAGE FVC-Pred 3.26 L FVC-Pre 2.85 L FVC-%Pred-Pre 87 L FVC-LLN 2.59 L Fev1-Pred 2.54 L Fev1-Pre 2.35 L Fev1-%Pred-Pre 92 L Fev1-LLN 1.97 L Fev6-Pred 3.16 L Fev6-Pre 2.83 L Fev6-%Pred-Pre 89 L Fev6-LLN 2.50 L Xvs8azd-Gpqk 79 % Fva2dhl-Bhu 83 % Gnm9urc-%Pred-Pre 104 % Duv4ycz-RAX 69 % Wyy5igs-Bxnj 97 % Hyx5wkq-Vcw 100 % Hos6ecw-%Pred-Pre 102 % FEFMax-Pred 6.30 L/E/sec FEFMax-Pre 5.21 L/E/sec FEFMax-%Pred-Pre 82 L/E/sec FEFMax-LLN 4.63 L/E/sec Ofu5918-Cndn 2.42 L/E/sec Nad0860-Lab 2.42 L/E/sec Olu2426-%Pred-Pre 100 L/E/sec Twv1623-MLK 1.22 L/E/sec ExpTime-Pre 7.31 sec Exo8nih4-Spau 81 % Utg1tqa9-Fqx 83 % Gqv7jib5-%Pred-Pre 102 % Xdj9duv8-EKC 72 % Procedures Description No Information Available Medical Devices Description No Information Available Encounters Description No Information Available Assessments Date Code Description Provider 05/07/2021 R91.8 Other nonspecific abnormal findi ng of lung field Cash Arroyo M.D. Plan of Treatment 05/07/2021 - Cash Arroyo M.D.* R91.8 Other nonspecific [...] 05/07/21 * Anti-SRP AB, Ordered: 05/07/21 * TX-2 Antibodies, Ordered: 05/07/21 * Anti-Mda5 AB (Cadm-140), [...] Cash Arroyo M.D. LUNG INFILTRATE Scheduled [address] [facility] [address] [place] [address] [phone]
--- OUTSIDE RECORDS SUMMARY | 2021-06-17 07:34 | CCD | Continuity of Care Document ---
Author Author Silvia ARROYO M.D. Organization Unknown Address [address] [place] [address] Phone [phone] Care Team Providers Care Mfg Assoc Name Role Phone Jett Cadet AUTM Problems [...] lb BMI (Body Mass Index) 41.1 kg/m2 [place] Body Weight 115 lb Weight 105.235 kg BSA (Body Surface Area) 2.06 m2 Results Test Acquired Date Facility Test Result H/L Range Note FVL/[place] 05/07/2021 [employer] PDFReport SEE IMAGE FVC-Pred 3.26 L FVC-Pre 2.85 L FVC-%Pred-Pre 87 L FVC-LLN 2.59 L Fev1-Pred 2.54 L Fev1-Pre 2.35 L Fev1-%Pred-Pre 92 L Fev1-LLN 1.97 L Fev6-Pred 3.16 L Fev6-Pre 2.83 L Fev6-%Pred-Pre 89 L Fev6-LLN 2.50 L Wpe8yfv-Wqor 79 % Pye5mww-Vmn 83 % Vtz7ift-%Pred-Pre 104 % Hqa5wpx-IGL 69 % Gju2wmt-Itlz 97 % Uhh0mdw-Kdx 100 % Qji2abe-%Pred-Pre 102 % FEFMax-Pred 6.30 L/E/sec FEFMax-Pre 5.21 L/E/sec FEFMax-%Pred-Pre 82 L/E/sec FEFMax-LLN 4.63 L/E/sec Hxx1853-Ourl 2.42 L/E/sec Iyz8511-Ywf 2.42 L/E/sec Isj4164-%Pred-Pre 100 L/E/sec Dez0922-NDJ 1.22 L/E/sec ExpTime-Pre 7.31 sec Tgo2zsd6-Dmnz 81 % Dcd8tyc8-Bkc 83 % Inp8tuu4-%Pred-Pre 102 % Wia4zsh3-TFJ 72 % Procedures Description No Information Available [...] Cash Arroyo M.D. LUNG INFILTRATE Scheduled 0[address] [facility] [address] [place] [address] [phone]
--- OUTSIDE RECORDS SUMMARY | 2021-06-17 07:34 | CCD ---
Author Author Osmar [facility] er Organization Osmar [facility] er Address Unknown Phone Unavailable Care Team Providers Care Bomb Squad Commander Name Role Phone Jett Cadet Unavailable PROBLEMS Type Condition ICD9-CM Code TSI79-HE Code Onset Dates Condition S tatus W/U Status Risk SNOMED Code Notes Problem Dyslipidemia E78.5 Active confirmed 3153985 07 Problem Prediabetes R73.03 Active confirmed 15620461 2 Problem Body mass index (BMI) 50.0-59.9, adult Z68.43 A ctive confirmed 574953667 Problem Bilateral carpal tunnel syndrome G56.03 Active conf irmed 26193340 Problem Morbid (severe) obesity due to excess calories E66 .01 Active confirmed 594790469 Problem Umbilical hernia without obstruction or gangrene K 42.9 Active confirmed 239211049 Problem Rectocele N81.6 Active confirmed 353783539 Problem Cystocele with prolapse N81.4 Active confirmed 395361349 Problem Infiltrating ductal carcinoma of left female breast C50.912 Active confirmed 252810009 Problem S/P PICC central line placement Z95.828 Active confirmed 448910177 Problem Mixed stress and urge urinary incontinence N39.46 Active confirmed 625697166 Problem 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.3 Active confirmed 3 78241059 Problem Abnormal mammogram of left breast R92.8 Active confirmed 131229957 Problem Invasive ductal carcinoma of left breast, stage 1 C50.912 Active confirmed 092506631 Problem Factor V Leiden mutation D68.51 24 Sep, 1999 Active co nfirmed 295272598 Problem GERD without esophagitis K21.9 Active confirmed 865337562 Problem Perforated diverticulum K57.80 Active confirmed 60961729 ALLERGIES Allergen (clinical drug ingredient) Drug/Non Drug Allergy do cumented on EMR Reaction Allergy Type Onset Date Status Tylenol With Codeine 3 Analgesics - Opioid Unknown Non Drug Allergy Active enoxaparin Lovenox([facility] Code:[address]-05) rash Drug Allergy Active ENCOUNTERS from 1964 to 2021-04-30 Encounter Location Date Provider Diagnosis [facility] Internal Medicine [address] [facility] [address] [place] [address] Apr, Jett Helio IMMUNIZATIONS Vaccine Route Administration Date [...] Oct, Active Vitamin D (Ergocalciferol) 1.25 MG (30659 UT) Oral for 84 Active Docusate Sodium [...] Hospitalization History see surgical list Hospitalization History [facility] 09/[address] [facility] 10/2020 Goals Section No Information Health Concerns No Information MEDICAL EQUIPMENT No Information MENTAL STATUS No Information FUNCTIONAL STATUS No Information ASSESSMENTS No Information PLAN OF TREATMENT Next Appt Details Provider Name:Jett Cadet, 08:30:00 AM, [address] [facility], [address], [place], [address], Provider Name:Lucy Avelar, 2022-02-10 02:00:00 PM, [address] [facility], [address], [place], [address], Insurance Providers Payer Name Payer Address Payer Phone Insured Name Patient Relati onship to Insured Coverage Start Date Coverage End Date [facility] [address] [address] [facility] [address] ANJALI ALBERTOf
--- OUTSIDE RECORDS SUMMARY | 2021-06-17 07:34 | CCD | Continuity of Care Document ---
Author Author Silvia ARROYO M.D. Organization Unknown Address [address] [place] [address] Phone [phone] Care Team Providers Care Farebox Repairer Name Role Phone Jett Cadet AUTM Problems [...] lb BMI (Body Mass Index) 41.1 kg/m2 [place] Body Weight 115 lb Weight 105.235 kg BSA (Body Surface Area) 2.06 m2 Results Test Acquired Date Facility Test Result H/L Range Note FVL/[place] 05/07/2021 [employer] PDFReport SEE IMAGE FVC-Pred 3.26 L FVC-Pre 2.85 L FVC-%Pred-Pre 87 L FVC-LLN 2.59 L Fev1-Pred 2.54 L Fev1-Pre 2.35 L Fev1-%Pred-Pre 92 L Fev1-LLN 1.97 L Fev6-Pred 3.16 L Fev6-Pre 2.83 L Fev6-%Pred-Pre 89 L Fev6-LLN 2.50 L Ewx0hsw-Omfk 79 % Oiu5ybt-Fmx 83 % Cfy8djk-%Pred-Pre 104 % Gmp4mph-AVY 69 % Qps7xat-Jyeq 97 % Kad6gjn-Gzv 100 % Bub7aou-%Pred-Pre 102 % FEFMax-Pred 6.30 L/E/sec FEFMax-Pre 5.21 L/E/sec FEFMax-%Pred-Pre 82 L/E/sec FEFMax-LLN 4.63 L/E/sec Eju1689-Yrnt 2.42 L/E/sec Bur4873-Qdu 2.42 L/E/sec Jws7172-%Pred-Pre 100 L/E/sec Xpl4948-NLT 1.22 L/E/sec ExpTime-Pre 7.31 sec Khw9vlo2-Tydb 81 % Moz0jny2-Tfh 83 % Kwc6umv5-%Pred-Pre 102 % Jll7vqd7-KOK 72 % Procedures Description No Information Available [...] 05/07/21 * Anti-SRP AB, Ordered: 05/07/21 * IN-2 Antibodies, Ordered: 05/07/21 * Anti-Mda5 AB (Cadm-140), [...] Cash Arroyo M.D. LUNG INFILTRATE Scheduled [facility] [address] [place] [address] [phone]
--- OUTSIDE RECORDS SUMMARY | 2021-06-17 07:34 | CCD | Summary of Care ---
Author Author [facility] Organization [facility] Address Unknown Phone Unavailable Care Team Providers Care Cruise Counselor Name Role Phone Jett Cadet MD PCP Reason for Referral * Diagnostic Radiology (Routine) Referred By Contact Referred To Contact Status Reason Specialty Diagnoses / Procedures Hernesto Foster MD [address] Room [address] [place] [phone] Email: [email or web address] Authorized Radiology Diagnoses S/P colostomy P rocedures CT Abdomen Pelvis with Contrast Electronically signed by Haim Joshi MD at Reason for Visit * Reason Comments Follow-up 1 mo. f/u to assess continu ed progress - 4 wk f/u Encounter Details Care Team Description Date Type Department Haim Joshi MD [address] Room [address] [place] [address] S/P colostomy (Primary Dx) 03/11/2021 Office Visit [facility] [address] [place] [address] Allergies Comments Active Allergy Reactions Severity Noted Date Tachycardia, dizziness Pt reports she has received morphine without any side effects Codeine Nausea Only 01/25/2020 Bruising, blister Enoxaparin Sodium 10/08/2020 documented as of this encounter (statuses as of 04/12/2021) Medications End Date Status Medication Sig Dispensed Refills Start Date Active Letrozole 2.5 MG Oral Take 2.5 mg 0 09/04/19 2 Tablet (FEMARA) by mouth 1 nightly Active Pantoprazole Sodium 40 MG Take 40 mg by 0 07/19 Oral Tablet Delayed mouth Two 1 Release (PROTONIX) Times Daily Active Vitamin D Take 50,000 0 (Ergocalciferol) 1.25 MG Units by (59702 UT) Oral Capsule mouth every 7 (ERGOCALCIFEROL) (seven) days Active Rivaroxaban 20 MG Oral Take 20 mg by 0 Tablet (XARELTO) mouth daily Active Acetaminophen 500 MG Oral Take 500 mg 0 Tablet (TYLENOL) by mouth every 6 (six) hours as needed for Pain Active Senna 8.6 MG Oral Tablet Take 2 120 tablet 0 0 tablets by 1 mouth nightly as needed 10/08/2021 Active Polyethylene Glycol 3350 Take 17 g by 255 g 0 17 GM/SCOOP Oral Powder mouth daily 1 (MiraLax) as needed (constipation ) Additional Information Patient not taking. Reported on 03/11/2021 10/07/2021 Active Gabapentin 300 MG Oral Take 1 90 capsule 0 Capsule (NEURONTIN) capsule by 1 mouth Three times daily Additional Information Patient not taking. Reported on 03/11/2021 Active Amoxicillin-Pot Take 1 tablet 0 Clavulanate 875-125 MG by mouth 1 Oral Tablet (AUGMENTIN) every 12 (twelve) hours documented as of this encounter (statuses as of 04/12/2021) Active Problems Problem Noted Date Other skin changes 10/06/2020 Overview: Formatting of this note might be differ ent from the original. right and left abdomen Hypotension 09/24/2020 History of DVT (deep venous thrombosis) 09/22/2020 Overview: Formatting of this note might be differ ent from the original. Therapeutic Lovenox. Restart Xarelto at discharge Impaired mobility and activities of daily living 02/2021 Overview: Formatting of this note might be differ ent from the original. PT/OT Postoperative anemia due to acute blood loss 021 Overview: Formatting of this note might be differ ent from the original. Stable. Colostomy in place 09/16/2020 Overview: Formatting of this note might be differ ent from the original. Colostomy care Perforated Diverticulitis with intra-abdominal absces s 09/14/2020 Overview: Formatting of this note might be differ ent from the original. S/P: 1. Exploratory laparotomy 2. Sigmoid colectomy 3. Incision and drainage of intraabdom inal abscess 4. Splenic flexure mobilization 5. End colostomy 6. Indocyanine green angiography 7. Flexible sigmoidoscopy Abdominal Drain in place. Removal at [facility] follow-up Umbilical hernia 04/06/2015 Severe obesity with body mass index (BMI) of 35.0 to 39.9 with serious 04/06/2015 comorbidity Overview: Formatting of this note might be differ ent from the original. Stable. Irritable bowel syndrome 04/06/2015 Factor V Leiden Overview: Formatting of this note might be differ ent from the original. Therapeutic Lovenox. Restart Xarelto at discharge Hematoma Overview: Formatting of this note might be differ ent from the original. Status post IR embolization. Resolving Factor V deficiency documented as of this encounter (statuses as of 04/12/2021) Social History Date Tobacco Use Types Packs/Day Years Used Former Smoker Smokeless Tobacco: Never Used Comments: Quit 27 years ago Comments Alcohol Use Standard Drinks/Week No 0 (1 standard drink = 0.6 o z pure alcohol) Sex Assigned at Date Recorded Not on file Date Recorded COVID-19 Exposure Response 03/11/2021 12:04 PM EDT In the last month, have you been in contact with No / Unsure someone who was confirmed or suspected to have Coronavirus / COVID-19? documented as of this encounter Last Filed Vital Signs Reading Time Taken Comments Vital Sign 138/72 03/11/2021 12:14 PM EDT Blood Pressure 53 03/11/2021 12:14 PM EDT Pulse 36.6 C (97.8 F) 03/11/2021 12:14 PM EDT Temperature 18 03/11/2021 12:14 PM EDT Respiratory Rate 98% 03/11/2021 12:14 PM EDT Oxygen Saturation - - Inhaled Oxygen Concentration 103.6 kg (228 lb 6.4 oz) 03/11/2021 12:14 PM EDT Weight 165.1 cm (5' 5") 03/11/2021 12:14 PM EDT Height 38.01 03/11/2021 12:14 PM EDT Body Mass Index documented in this encounter Progress Notes * Hernesto Foster MD - 03/11/2021 12:15 PM EDT Subjective: Patient ID: Silvia Turner is a 55 y.o. female. HPI Ms. Turner presents with history of perforated diverticulitis s/p Luna's proc edure for feculent peritonitis (09/15/20) who would like to discuss ostomy rever mary alice. She states she is feeling much better since her abdominal drain was removed 01/12/21 for an intraabdominal abscess. She has no complains of abdominal pain or difficulty with her colostomy. She reports her last CT scan showed the absces s resolved. She also noticed her prior umbilical hernia has disappeared. She rec alls some bulging around the superior aspect of her colostomy that she is able t o reduce. She is here today to discuss is she can have her ostomy reversed as sh e would like to void normally again. She has not seen her cable strander but was s witched from [facility] to [facility] without complications. She is adamantly trying t o reduce her body weight in anticipation for surgery. Silvia has a past medical history of Cancer, Diverticulitis, DVT (deep venous th rombosis), Factor V Leiden, and Other skin changes (10/06/2020). Silvia has Umbilical hernia; Severe obesity with body mass index (BMI) of 35.0 to 39.9 with serious comorbidity; Irritable bowel syndrome; Perforated Diverticuli tis with intra-abdominal abscess; Colostomy in place; History of DVT (deep venou s thrombosis); Factor V Leiden; Impaired mobility and activities of daily living ; Postoperative anemia due to acute blood loss; Hypotension; Hematoma; Factor V deficiency; and Other skin changes on their problem list. Silvia has a past surgical history that includes Cholecystectomy (1999); EXPLORA TORY LAPAROTOMY PARTIAL COLECTOMYSPLEENIC PLEXTURE MOBILIZATION ENDO FLEX SIGMOI DOSCOPY, END COLOSTOMY (09/15/2020); Breast lumpectomy (Left, 11/2019); Breast s urgery (Left, 12/2019); and I&D, Abscess, Wound Care (N/A). Her family history includes Diabetes in her son; Heart disease in her mother; Hy perlipidemia in her mother. Silvia reports that she has quit smoking. She has never used smokeless tobacco. She reports that she does not drink alcohol and does not use drugs. Silvia has a current medication list which includes the following prescription(s) : acetaminophen, letrozole, pantoprazole, rivaroxaban, senna, vitamin d, amoxici llin-clavulanate, gabapentin, and polyethylene glycol. Current Outpatient Medications on File Prior to Visit Medication Sig Dispense Refill Acetaminophen 500 MG Oral Tablet (TYLENOL) Take 500 mg by mouth every 6 ( six) hours as needed for Pain Letrozole 2.5 MG Oral Tablet (FEMARA) Take 2.5 mg by mouth nightly Pantoprazole Sodium 40 MG Oral Tablet Delayed Release (PROTONIX) Take 40 mg by mouth Two Times Daily Rivaroxaban 20 MG Oral Tablet (XARELTO) Take 20 mg by mouth daily Senna 8.6 MG Oral Tablet Take 2 tablets by mouth nightly as needed 120 ta blet 0 Vitamin D (Ergocalciferol) 1.25 MG (95091 UT) Oral Capsule (ERGOCALCIFERO L) Take 50,000 Units by mouth every 7 (seven) days Amoxicillin-Pot Clavulanate 875-125 MG Oral Tablet (AUGMENTIN) Take 1 tab let by mouth every 12 (twelve) hours (Patient not taking: Reported on 03/11/2021 ) Gabapentin 300 MG Oral Capsule (NEURONTIN) Take 1 capsule by mouth Three times daily (Patient not taking: Reported on 03/11/2021) 90 capsule 0 Polyethylene Glycol 3350 17 GM/SCOOP Oral Powder (MiraLax) Take 17 g by m outh daily as needed (constipation) (Patient not taking: Reported on 03/11/2021) 255 g 0 No current facility-administered medications on file prior to visit. Review of Systems Constitutional: Negative for activity change, appetite change, fatigue and unexp ected weight change. Respiratory: Negative for cough, chest tightness and shortness of breath. Cardiovascular: Negative for chest pain and palpitations. Gastrointestinal: Negative for abdominal distention, abdominal pain, constipatio n and diarrhea. Genitourinary: Negative for difficulty urinating and frequency. Objective: Physical Exam Constitutional: General: She is not in acute distress. Appearance: Normal appearance. She is obese. Cardiovascular: Rate and Rhythm: Normal rate. Heart sounds: Normal heart sounds. Pulmonary: Effort: Pulmonary effort is normal. Breath sounds: Normal breath sounds. Abdominal: General: Abdomen is flat. Palpations: Abdomen is soft. There is no mass. Tenderness: There is no abdominal tenderness. There is no guarding. Hernia: No hernia is present. Comments: LUQ colostomy with newly changed bag in place. Stoma appears health y pink. Skin: General: Skin is warm and dry. Neurological: Mental Status: She is alert. Assessment: Silvia Turner is a 55yo female with history of perforated diverticulitis s/p H artman's procedure for feculent peritonitis (09/15/20) who would like to discuss ostomy reversal. Her recovery was complicated by an intra abdominal bleed and a bdominal abscesses with drain removal 01/12/21. Her last CT scan was done on the day of drain removal. Will order another scan to assess her anatomy as she is a couple months out. Discussed the importance of optimizing health prior to surge ry including continued weight loss as she is down 80lbs from September 2020. Plan: - CT abdomen pelvis - Follow up in 4 week in clinic or telemedicine to review CT scan - See cardiology to discuss bridging anticoagulants - Post OR date as it likely to be 6 weeks out - Discussed details of exploratory laparotomy, possible bowel resection with anna stomosis, possible ostomy creation - Continue weight loss ATTESTATION: I saw and evaluated the patient. Discussed with the resident and agree with the resident's findings and plans as written, along with any supplemental dictated and/or attending documentation in the patient record by myself. The patient has been doing very well since her last visit. She reports resoluti on of her abdominal pain. She is tolerating a diet. She is having good colosto my function. She has been eating better and increasing her activity. She state s that she has lost nearly 90 pounds since prior to her surgery. -Although her operation was in September, resolution of her intra-abdominal inflamma tion with final drain removal was less than 2 months ago. Will allow additional time for remodeling. We will plan for a recent repeat CT scan of the abdomen a nd pelvis to confirm continued resolution of her intra-abdominal abscesses. -In the interim, encouraged continued diet and exercise in preparation for her s urgery. -Discussed subsequently proceeding with an exploratory laparotomy with possible colostomy reversal, possible bowel resection, and possible stoma creation. Risk and benefits were reviewed, including pain, bleeding, infection, anastomotic le ak, damage to other structures including bowel or ureter, persistent or recurren t disease, recurrent hernia, change in bowel habits, worsening of comorbid condi tions, the need for additional procedures. The patient verbalized her understan ding and is still interested in pursuing reversal. -We will request PAT evaluation as well as a bridging plan for her anticoagulati on. We will see the patient back in clinic in [address]. Possibl e subsequent reversal after this visit. Haim Joshi MD documented in this encounter Plan of Treatment Care Team Description Date Type Specialty Haim Joshi MD [facility] [address] [address] 04/15/2021 Telemedicine Surgery Order Schedule Name Type Priority Associated Diag noses Expected: 03/11/2021, Expires: CT Abdomen Pelvis with Imaging Routine S/P col ostomy Contrast Health Maintenance Due Date Last Done Comments MMR Vaccines (1 of - 1965 Standard series) Varicella Vaccines (1 of 1965 2 - 2-dose childhood series) DTaP,Tdap,and Td Vaccines 1971 (1 - Tdap) COVID-19 Vaccine (1) 1976 HIV Screening 1977 Cervical Cancer Screening 1985 5 years Breast Cancer Screening 2 2014 years Colon Cancer Screening 10 2014 yrs Influenza Vaccine 04/17/2021 Pneumococcal Vaccine: 65+ 2029 Years (1 of 1 - PPSV23) Hepatitis C Screening (B. Completed 09/15/202019447359-6687) HIB Vaccines Aged Out No longer eligible based on patient's age to complete this topic Hepatitis A Vaccines Aged Out No longer eligibl e based on patient's age to complete this topic Hepatitis B Vaccines Aged Out No longer eligibl e based on patient's age to complete this topic IPV Vaccines Aged Out No longer eligible based on patient's age to complete this topic Pneumococcal Vaccine: Aged Out No longer eligib le based on patient's age to Pediatrics (0 to 5 Years) complete this topic and At-Risk Patients (6 to 64 Years) documented as of this encounter Implants Device Identifier Shelf Expiration Date Model / Serial / L ot Implanted Type Area Manufactur er 08/07/2023 RQ-0-8-HELIX / / [id number] Concerto Nyl Hel Coil 3 X 8 - Left: Abdomen COVIDIE N [id number] HEALTHCARE Implanted: Qty: 1 on 09/25/2020 by Tom Johnson DO at [facility] 05/13/2025 [id number] / / [id number] M/Coil- [id number]-06-77-4-Nest- Old Left: Abdomen Radio [employer] [id number] - [id number] Implanted: Qty: 1 on 09/25/2020 by Tom Johnson DO at [facility] 05/02/2025 [id number] / / [id number] M/Coil- Qdfu-39-18-4-Nest- Old Left: Abdomen Radio [employer] [id number] - [id number] Implanted: Qty: 1 on 09/25/2020 by Tom Johnson DO at [facility] 08/08/2023 NR-0-39-HELIX / / [id number] Concerto Nyl Hel Coil 4 X 10 - Left: Abdomen COVIDI EN [id number] HEALTHCARE Implanted: Qty: 1 on 09/25/2020 by Tom Johnson DO at [facility] 08/15/2023 PI-7-18-HELIX / / [id number] Concerto Nyl Hel Coil 5 X 15 - Left: Abdomen COVIDI EN [id number] HEALTHCARE Implanted: Qty: 1 on 09/25/2020 by Tom Johnson DO at [facility] 07/21/2023 IW-3-04-HELIX / / [id number] Concerto Nyl Hel Coil 5 X 15 - Left: Abdomen COVIDI EN [id number] HEALTHCARE Implanted: Qty: 1 on 09/25/2020 by Tom Johnson DO at [facility] 03/17/2022 [id number] / / [id number] Vas Karen - Mynx Brynn-5fr - Right: Groin NO [id number] MANUFA[employer]UR Implanted: Qty: 1 on 09/25/2020 by Tom Casillas DO at [facility] documented as of this encounter Results Not on filedocumented in this encounter Visit Diagnoses Diagnosis S/P colostomy - Primary Colostomy status documented in this encounter
--- OUTSIDE RECORDS SUMMARY | 2021-06-17 07:34 | CCD | Continuity of Care Document ---
Author Author Silvia ARROYO M.D. Organization Unknown Address [address] [place] [address] Phone [phone] Care Team Providers Care Diving Board Assembler Name Role Phone Jett Cadet AUTM Problems [...] lb BMI (Body Mass Index) 41.1 kg/m2 [place] Body Weight 115 lb Weight 105.235 kg BSA (Body Surface Area) 2.06 m2 Results Test Acquired Date Facility Test Result H/L Range Note FVL/[place] 05/07/2021 [employer] PDFReport SEE IMAGE FVC-Pred 3.26 L FVC-Pre 2.85 L FVC-%Pred-Pre 87 L FVC-LLN 2.59 L Fev1-Pred 2.54 L Fev1-Pre 2.35 L Fev1-%Pred-Pre 92 L Fev1-LLN 1.97 L Fev6-Pred 3.16 L Fev6-Pre 2.83 L Fev6-%Pred-Pre 89 L Fev6-LLN 2.50 L Ugh4azx-Muct 79 % Gxo1ipn-Nzn 83 % Cti5yut-%Pred-Pre 104 % Ohj9wfh-KQX 69 % Vhz1hyi-Fsjf 97 % Dap6wsw-Ahu 100 % Ltn5wff-%Pred-Pre 102 % FEFMax-Pred 6.30 L/E/sec FEFMax-Pre 5.21 L/E/sec FEFMax-%Pred-Pre 82 L/E/sec FEFMax-LLN 4.63 L/E/sec Rey2520-Cfow 2.42 L/E/sec Jfc3129-Xpz 2.42 L/E/sec Mdi8901-%Pred-Pre 100 L/E/sec Szm6585-QGF 1.22 L/E/sec ExpTime-Pre 7.31 sec Qnm8ndd1-Wsuh 81 % Met1usg5-Zbl 83 % Edw2hwn7-%Pred-Pre 102 % Cxx8hja2-SRT 72 % Procedures Description No Information Available [...] 05/07/21 * Anti-SRP AB, Ordered: 05/07/21 * HI-2 Antibodies, Ordered: 05/07/21 * Anti-Mda5 AB (Cadm-140), [...] Cash Arroyo M.D. LUNG INFILTRATE Scheduled [address] [facility] [address] [place] [address] [phone]
--- OUTSIDE RECORDS SUMMARY | 2021-06-17 07:34 | CCD ---
Author Author [facility] Organization [facility] Address Unknown Phone Unavailable Care Team Providers Care Waiter/Waitress Informal Name Role Phone Jett Cadet Unavailable PROBLEMS Type Condition ICD9-CM Code WGV32-TL Code Onset Dates Condition S tatus W/U Status Risk SNOMED Code Notes Problem Dyslipidemia E78.5 Active confirmed 5056200 07 Problem Prediabetes R73.03 Active confirmed 43431477 2 Problem Body mass index (BMI) 50.0-59.9, adult Z68.43 A ctive confirmed 300792188 Problem Bilateral carpal tunnel syndrome G56.03 Active conf irmed 14595629 Problem Morbid (severe) obesity due to excess calories E66 .01 Active confirmed 749789770 Problem Umbilical hernia without obstruction or gangrene K 42.9 Active confirmed 019424034 Problem Rectocele N81.6 Active confirmed 377358285 Problem Cystocele with prolapse N81.4 Active confirmed 896259731 Problem Infiltrating ductal carcinoma of left female breast C50.912 Active confirmed 629355284 Problem S/P PICC central line placement Z95.828 Active confirmed 321480822 Problem Mixed stress and urge urinary incontinence N39.46 Active confirmed 196276333 Problem 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.3 Active confirmed 3 56312230 Problem Abnormal mammogram of left breast R92.8 Active confirmed 803922814 Problem Invasive ductal carcinoma of left breast, stage 1 C50.912 Active confirmed 881741643 Problem Factor V Leiden mutation D68.51 24 Sep, 1999 Active co nfirmed 964329039 Problem GERD without esophagitis K21.9 Active confirmed 383577321 Problem Perforated diverticulum K57.80 Active confirmed 29202400 ALLERGIES Allergen (clinical drug ingredient) Drug/Non Drug Allergy do cumented on EMR Reaction Allergy Type Onset Date Status Tylenol With Codeine 3 Analgesics - Opioid Unknown Non Drug Allergy Active enoxaparin Lovenox([facility] Code:[address]-02) rash Drug Allergy Active ENCOUNTERS from 1964 to 2021-04-01 Encounter Location Date Provider Diagnosis [facility] Internal Medicine [address] [place] [address] Mar, Jett Helio IMMUNIZATIONS Vaccine Route Administration [...] day(s) Active Vitamin D (Ergocalciferol) 1.25 MG (05153 UT) Oral for 84 Active oxyCODONE HCl [...] Hospitalization History see surgical list Hospitalization History [facility] 09/[address] [facility] 10/2020 Goals Section No Information Health Concerns No Information MEDICAL EQUIPMENT No Information MENTAL STATUS No Information FUNCTIONAL STATUS No Information ASSESSMENTS No Information PLAN OF TREATMENT Next Appt Details Provider Name:Jett Cadet, 08:30:00 AM, [address], [address], Provider Name:Lucy Avelar, 2022-02-10 02:00:00 PM, [address] [facility], [place], [address], Insurance Providers Payer Name Payer Address Payer Phone Insured Name Patient Relati onship to Insured Coverage Start Date Coverage End Date [facility] [address] [address] [facility] [id number] ANJALI ALBERTOf
--- OUTSIDE RECORDS SUMMARY | 2021-06-17 07:38 | CCD ---
Author Author [facility] Address Unknown Phone Unavailable Care Team Providers Care Director Orange Name Role Phone LUIS ARENAS MD Unavailable Unavailable Renard Garg MD Unavailable Unavailable BritanyRenard terrazas MD Unavailable Unavailable BritanyRenard MD Unavailable Unavailable BritanyRenard terrazas MD Unavailable Unavailable BritanyRenard terrazas MD Unavailable Unavailable BritanyRenard terrazas MD Unavailable Unavailable BritanyRenard terrazas MD Unavailable Unavailable BritanyRenard terrazas MD Unavailable Unavailable BritanyRenard terrazas MD Unavailable Unavailable BritanyRenard MD Unavailable Unavailable BritanyRenard terrazas MD Unavailable Unavailable BritanyRenard terrazas MD Unavailable Unavailable BritanyRenard terrazas MD Unavailable Unavailable BritanyRenard terrazas MD Unavailable Unavailable BritanyRenard MD Unavailable Unavailable BritanyRenard MD Unavailable Unavailable BritanyRenard MD Unavailable Unavailable BritanyRenard MD Unavailable Unavailable BritanyRenard MD Unavailable Unavailable BritanyRenard MD Unavailable Unavailable BritanyRenard terrazas MD Unavailable Unavailable BritanyRenard terrazas MD Unavailable Unavailable BritanyRenard terrazas MD Unavailable Unavailable BritanyRenard terrazas MD Unavailable Unavailable BritanyRenard terrazas MD Unavailable Unavailable BritanyRenard terrazas MD Unavailable Unavailable Britany, Renard G MD Unavailable Unavailable Renard Gagr MD Unavailable Unavailable Renard Garg MD Unavailable Unavailable Anita Sommer MD Unavailable Unavailable ORLIN, WALTER HIM SPECIALIST Unavailable Unavailable ORLIN, WALTER HIM SPECIALIST Unavailable Unavailable ORLIN, WALTER HIM SPECIALIST Unavailable Unavailable ORLIN, WALTER HIM SPECIALIST Unavailable Unavailable ORLIN, WALTER HIM SPECIALIST Unavailable Unavailable ORLIN, WALTER HIM SPECIALIST Unavailable Unavailable ORLIN, WALTER HIM SPECIALIST Unavailable Unavailable ORLIN, WALTER HIM SPECIALIST Unavailable Unavailable ORLIN, WALTER HIM SPECIALIST Unavailable Unavailable ORLIN, WALTER HIM SPECIALIST Unavailable Unavailable ORLIN, WALTER HIM SPECIALIST Unavailable Unavailable ORLIN, WALTER HIM SPECIALIST Unavailable Unavailable ORLIN, WALTER HIM SPECIALIST Unavailable Unavailable ORLIN, WALTER HIM SPECIALIST Unavailable Unavailable ORLIN, WALTER HIM SPECIALIST Unavailable Unavailable ORLIN, WALTER HIM SPECIALIST Unavailable Unavailable ORLIN, WALTER HIM SPECIALIST Unavailable Unavailable ORLIN, WALTER HIM SPECIALIST Unavailable Unavailable ORLIN, WALTER HIM SPECIALIST Unavailable Unavailable ORLIN, WALTER HIM SPECIALIST Unavailable Unavailable ORLIN, WALTER HIM SPECIALIST Unavailable Unavailable ORLIN, WALTER HIM SPECIALIST Unavailable Unavailable ORLIN, WALTER HIM SPECIALIST Unavailable Unavailable ORLIN, WALTER HIM SPECIALIST Unavailable Unavailable ORLIN, WALTER HIM SPECIALIST Unavailable Unavailable ORLIN, WALTER HIM SPECIALIST Unavailable Unavailable ORLIN, WALTER HIM SPECIALIST Unavailable Unavailable ORLIN, WALTER HIM SPECIALIST Unavailable Unavailable ORLIN, WALTER HIM SPECIALIST Unavailable Unavailable ORLIN, WALTER HIM SPECIALIST Unavailable Unavailable ORLIN, WALTER HIM SPECIALIST Unavailable Unavailable ORLIN, WALTER HIM SPECIALIST Unavailable Unavailable ORLIN, WALTER HIM SPECIALIST Unavailable Unavailable ORLIN, WALTER HIM SPECIALIST Unavailable Unavailable ORLIN, WALTER HIM SPECIALIST Unavailable Unavailable ORLIN, WALTER HIM SPECIALIST Unavailable Unavailable ORLIN, WALTER HIM SPECIALIST Unavailable Unavailable Chan SUH MD Unavailable Unavailable Chan SUH MD Unavailable Unavailable Chan SUH MD Unavailable Unavailable Chan SUH MD Unavailable Unavailable Chan SUH MD Unavailable Unavailable Chan SUH MD Unavailable Unavailable Chan SUH MD Unavailable Unavailable ANGELI, K ROGELIO OLVERA Unavailable Unavailable ANGELI, K ROGELIO OLVERA Unavailable Unavailable ANGELI, K ROGELIO OLVEAR Unavailable Unavailable ANGELI, K ROGELIO OLVERA Unavailable Unavailable ANGELI, K ROGELIO OLVERA Unavailable Unavailable ANGELI, K ROGELIO OLVERA Unavailable Unavailable ANGELI, K ROGELIO OLVERA Unavailable Unavailable ANGELI, K ROGELIO OLVERA Unavailable Unavailable ANGELI, K ROGELIO OLVERA Unavailable Unavailable ANGELI, K ROGELIO OLVERA Unavailable Unavailable ANGELI, K ROGELIO OLVERA Unavailable Unavailable ANGELI, K ROGELIO OLVERA Unavailable Unavailable ANGELI, K ROGELIO OLVERA Unavailable Unavailable ANGELI, K ROGELIO OLVERA Unavailable Unavailable ANGELI, K ROGELIO OLVERA Unavailable Unavailable ANGELI, K ROGELIO OLVERA Unavailable Unavailable ANGELI, K ROGELIO OLVERA Unavailable Unavailable ANGELI, K ROGELIO OLVERA Unavailable Unavailable ANGELI, K ROGELIO OLVERA Unavailable Unavailable ANGELI, K ROGELIO OLVERA Unavailable Unavailable ANGELI, K ROGELIO OLVERA Unavailable Unavailable ANGELI, K ROGELIO OLVERA Unavailable Unavailable ANGELI, K ROGELIO OLVERA Unavailable Unavailable ANGELI, K ROGELIO OLVERA Unavailable Unavailable ANGELI, K ROGELIO OLVERA Unavailable Unavailable ANGELI, K ROGELIO OLVERA Unavailable Unavailable ANGELI, K ROGELIO OLVERA Unavailable Unavailable ANGELI, K ROGELIO OLVERA Unavailable Unavailable ANGELI, K ROGELIO OLVERA Unavailable Unavailable ANGELI, K ROGELIO OLVERA Unavailable Unavailable ANGELI, K ROGELIO OLVERA Unavailable Unavailable ANGELI, K ROGELIO OLVERA Unavailable Unavailable ANGELI, K ROGELIO OLVERA Unavailable Unavailable ANGELI, K ROGELIO OLVERA Unavailable Unavailable ANGELI, K ROGELIO OLVERA Unavailable Unavailable ANGELI, K ROGELIO OLVERA Unavailable Unavailable ANGELI, K ROGELIO OLVERA Unavailable Unavailable ANGELI, K ROGELIO OLVERA Unavailable Unavailable ANGELI, K ROGELIO OLVERA Unavailable Unavailable ANGELI, K ROGELIO OLVERA Unavailable Unavailable ANGELI, K ROGELIO OLVERA Unavailable Unavailable ANGELI, K ROGELIO OLVERA Unavailable Unavailable ANGELI, Chan MERCADO MD Unavailable Unavailable ANGELI, Chan MERCADO MD Unavailable Unavailable ANGELI, Chan MERCADO MD Unavailable Unavailable ANGELI, Chan MERCADO MD Unavailable Unavailable ANGELI, Chan MERCADO MD Unavailable Unavailable ANGELI, Chan MERCADO MD Unavailable Unavailable ANGELI, Chan MERCADO MD Unavailable Unavailable ANGELI, Chan MERCADO MD Unavailable Unavailable Anita SOMMER MD Unavailable Unavailable Anita SOMMER MD Unavailable Unavailable Anita SOMMER MD Unavailable Unavailable FEDOROKAREL RANDHAWA MD Unavailable Unavailable FEDOROKAREL RANDHAWA MD Unavailable Unavailable KAREL VALDIVIA MD Unavailable Unavailable KAREL VALDIVIA MD Unavailable Unavailable KAREL VALDIVIA MD Unavailable Unavailable KAREL VALDIVIA MD Unavailable Unavailable EMILI ROCA Unavailable Unavailable TIM, AKBAR MCDONOUGH MD Unavailable Unavailable TIM, AKBAR MCDONOUGH MD Unavailable Unavailable TIM, AKBAR MCDONOUGH MD Unavailable Unavailable TIM, AKBAR MCDONOUGH MD Unavailable Unavailable TIM, AKBAR MCDONOUGH MD Unavailable Unavailable TIM, AKBAR MCDONOUGH MD Unavailable Unavailable TIM, AKBAR MCDONOUGH MD Unavailable Unavailable TIM, AKBAR MCDONOUGH MD Unavailable Unavailable TIM, AKBAR MCDONOUGH MD Unavailable Unavailable TIM, AKBAR MCDONOUGH MD Unavailable Unavailable TIM, AKBAR MCDONOUGH MD Unavailable Unavailable TIM, AKBAR MCDONOUGH MD Unavailable Unavailable TIM, AKBAR MCDONOUGH MD Unavailable Unavailable TIM, AKBAR MCDONOUGH MD Unavailable Unavailable TIM, AKBAR MCDONOUGH MD Unavailable Unavailable TIM, AKBAR MCDONOUGH MD Unavailable Unavailable TIM, AKBAR MCDONOUGH MD Unavailable Unavailable TIM, AKBAR MCDONOUGH MD Unavailable Unavailable TIM, AKBAR MCDONOUGH MD Unavailable Unavailable TIM, AKBAR MCDONOUGH MD Unavailable Unavailable TIM, AKBAR MCDONOUGH MD Unavailable Unavailable TIM, AKBAR MCDONOUGH MD Unavailable Unavailable TIM, AKBAR MCDONOUGH MD Unavailable Unavailable TIM, AKBAR MCDONOUGH MD Unavailable Unavailable TIM, AKBAR MCDONOUGH MD Unavailable Unavailable TIM, AKBAR STEENI MD Unavailable Unavailable AKBAR DUMONT MD Unavailable Unavailable AKBAR DUMONT MD Unavailable Unavailable AKBAR DUMONT MD Unavailable Unavailable AKBAR DUMONT MD Unavailable Unavailable Michael BHAT MD Unavailable Unavailable Michael BHAT MD Unavailable Unavailable Michael BHAT MD Unavailable Unavailable Michael BHAT MD Unavailable Unavailable Michael BHAT MD Unavailable Unavailable Michael BHAT MD Unavailable Unavailable Michael BHAT MD Unavailable Unavailable Michael BHAT MD Unavailable Unavailable Michael BHAT MD Unavailable Unavailable Michael BHAT MD Unavailable Unavailable Michael BHAT MD Unavailable Unavailable Michael BHAT MD Unavailable Unavailable Michael BHAT MD Unavailable Unavailable Michael BHAT MD Unavailable Unavailable Michael BHAT MD Unavailable Unavailable Michael BHAT MD Unavailable Unavailable Michael BHAT MD Unavailable Unavailable Michael BHAT MD Unavailable Unavailable Michael BHAT MD Unavailable Unavailable Michael BHAT MD Unavailable Unavailable Michael BHAT MD Unavailable Unavailable Michael BHAT MD Unavailable Unavailable Michael BHAT MD Unavailable Unavailable Michael BHAT MD Unavailable Unavailable Michael BHAT MD Unavailable Unavailable Michael BHAT MD Unavailable Unavailable Michael BHAT MD Unavailable Unavailable Michael BHAT MD Unavailable Unavailable Michael BHAT MD Unavailable Unavailable Michael BHAT MD Unavailable Unavailable Michael BHAT MD Unavailable Unavailable Michael BHAT MD Unavailable Unavailable Michael BHAT MD Unavailable Unavailable Michael BHAT MD Unavailable Unavailable Michael BHAT MD Unavailable Unavailable Michael BHAT MD Unavailable Unavailable Michael BHAT MD Unavailable Unavailable Michael BHAT MD Unavailable Unavailable Michael BHAT MD Unavailable Unavailable Michael BHAT MD Unavailable Unavailable Michael BHAT MD Unavailable Unavailable Michael BAHT MD Unavailable Unavailable Michael BHAT MD Unavailable Unavailable Michael BHAT MD Unavailable Unavailable Maureen PINEDA MD Unavailable Unavailable Maureen PINEDA MD Unavailable Unavailable Maureen PINEDA MD Unavailable Unavailable Maureen PINEDA MD Unavailable Unavailable Maureen PINEDA MD Unavailable Unavailable Maureen PINEDA MD Unavailable Unavailable Maureen PINEDA MD Unavailable Unavailable Maureen PINEDA MD Unavailable Unavailable Maureen PINEDA MD Unavailable Unavailable Maureen PINEDA MD Unavailable Unavailable Maureen PINEDA MD Unavailable Unavailable Maureen PINEDA MD Unavailable Unavailable Maureen PINEDA MD Unavailable Unavailable Maureen PINEDA MD Unavailable Unavailable Maureen PINEDA MD Unavailable Unavailable Maureen PINEDA MD Unavailable Unavailable Maureen PINEDA MD Unavailable Unavailable aMureen PINEDA MD Unavailable Unavailable Maureen PINEDA MD Unavailable Unavailable Maureen PINEDA MD Unavailable Unavailable Maureen PINEDA MD Unavailable Unavailable ZULEMA, SAVITA PA Unavailable Unavailable ZULEMA, SAVITA PA Unavailable Unavailable ZULEMA, SAVITA PA Unavailable Unavailable ZULEMA, SAVITA PA Unavailable Unavailable ZULEMA, SAVITA PA Unavailable Unavailable ZULEMA, SAVITA PA Unavailable Unavailable ZULEMA, SAVITA PA Unavailable Unavailable ZULEMA, SAVITA PA Unavailable Unavailable ZULEMA, SAVITA PA Unavailable Unavailable ZULEMA, SAVITA PA Unavailable Unavailable ZULEMA, SAVITA PA Unavailable Unavailable ZULEMA, SAVITA PA Unavailable Unavailable ZULEMA, SAVITA PA Unavailable Unavailable ZULEMA, SAVITA PA Unavailable Unavailable ZULEMA, SAVITA PA Unavailable Unavailable ZULEMA, SAVITA PA Unavailable Unavailable ZULEMA, SAVITA PA Unavailable Unavailable ZULEMA, SAVITA PA Unavailable Unavailable ZULEMA, SAVITA PA Unavailable Unavailable Conner, M Emerson DO Unavailable Unavailable Conner, M Emerson DO Unavailable Unavailable Conner, M Emerson DO Unavailable Unavailable Conner, M Emerson DO Unavailable Unavailable Conner, M Emerson DO Unavailable Unavailable Conner, M Emerson DO Unavailable Unavailable Conner, M Emerson DO Unavailable Unavailable Conner, M Emerson DO Unavailable Unavailable Conner, M Emerson DO Unavailable Unavailable Conner, M Emerson DO Unavailable Unavailable Conner, M Emerson DO Unavailable Unavailable Conner, M Emerson DO Unavailable Unavailable Conner, M Emerson DO Unavailable Unavailable Ocnner, M Emerson DO Unavailable Unavailable Conner, M Emerson DO Unavailable Unavailable Conner, M Emerson DO Unavailable Unavailable EDMUNDO RANGEL MD Unavailable Unavailable EDMUNDO RANGEL MD Unavailable Unavailable EDMUNDO RANGEL MD Unavailable Unavailable EDMUNDO RANGEL MD Unavailable Unavailable Anita Mcgarry MD Unavailable Unavailable EMILI AVELAR PA-C Unavailable Unavailable Palacios, Shawn Unavailable Unavailable Palacios, Shawn Unavailable Unavailable Palacios, Shawn Unavailable Unavailable Palacios, Shawn Unavailable Unavailable Palacios, Sahwn Unavailable Unavailable Palacios, Shawn Unavailable Unavailable ZUKER, B GRACIELA MD Unavailable Unavailable ZUKER, B GRACIELA MD Unavailable Unavailable ZUKER, B GRACIELA MD Unavailable Unavailable ZUKER, B GRACIELA MD Unavailable Unavailable ZUKER, B GRACIELA MD Unavailable Unavailable ZUKER, B GRACIELA MD Unavailable Unavailable ZUKER, B GRACIELA MD Unavailable Unavailable ZUKER, B GRACIELA MD Unavailable Unavailable ZUKER, B GRACIELA MD Unavailable Unavailable ZUKER, B GRACIELA MD Unavailable Unavailable ZUKER, B GRACIELA MD Unavailable Unavailable ZUKER, B GRACIELA MD Unavailable Unavailable ZUKER, B GRACIELA MD Unavailable Unavailable ZUKER, B GRACIELA MD Unavailable Unavailable ZUKER, B GRACIELA MD Unavailable Unavailable ZUKER, B GRACIELA MD Unavailable Unavailable Anita Mcgarry MD Unavailable Unavailable Anita Mcgarry MD Unavailable Unavailable JARVIS WILSON MD Unavailable Unavailable JARVIS WILSON MD Unavailable Unavailable JARVIS WILSON MD Unavailable Unavailable JARVIS WILSON MD Unavailable Unavailable JARVIS WILSON MD Unavailable Unavailable JEMIMA SPEARS MD Unavailable Unavailable ALTAFI, LISA MD Unavailable Unavailable ALTAFI, LISA MD Unavailable Unavailable ALTAFI, LISA MD Unavailable Unavailable ALTAFI, LISA MD Unavailable Unavailable ALTAFI, LISA MD Unavailable Unavailable ALTAFI, LISA MD Unavailable Unavailable ALTAFI, LISA MD Unavailable Unavailable ALTAFI, LISA MD Unavailable Unavailable ALTAFI, LISA MD Unavailable Unavailable ALTAFI, LISA MD Unavailable Unavailable ALTAFI, LISA MD Unavailable Unavailable ALTAFI, LISA MD Unavailable Unavailable ALTAFI, LISA MD Unavailable Unavailable Flo WRIGHT MD Unavailable Unavailable Flo WRIGHT MD Unavailable Unavailable Flo WRIGHT MD Unavailable Unavailable Flo WRIGHT MD Unavailable Unavailable Flo WRIGHT MD Unavailable Unavailable Flo WRIGHT MD Unavailable Unavailable Maureen Spears MD Unavailable Unavailable Maureen Spears MD Unavailable Unavailable Maureen Spears MD Unavailable Unavailable Maureen Spears MD Unavailable Unavailable Maureen Spears MD Unavailable Unavailable Maureen Spears MD Unavailable Unavailable Maureen Spears MD Unavailable Unavailable Maureen Spears MD Unavailable Unavailable Maureen Spears MD Unavailable Unavailable Maureen Spears MD Unavailable Unavailable Sylvia Mccullough MD Unavailable Unavailable Marino, A Mitch Unavailable + Marino, A [place] Unavailable + Marino, A Mitch Unavailable + Marino, A [place] Unavailable + Marino, A Mitch Unavailable + Ariadne VENTURA MD Unavailable Unavailable LORENZOAriadne DELEON MD Unavailable Unavailable LORENZOAriadne MD Unavailable Unavailable LORENZOAriadne MD Unavailable Unavailable LORENZOAriadne MD Unavailable Unavailable LORENZOAriadne MD Unavailable Unavailable LORENZOAriadne MD Unavailable Unavailable LORENZOAriadne STAHL MD Unavailable Unavailable LORENZOAriadne DEELON MD Unavailable Unavailable LORENZOAriadne DELEON MD Unavailable Unavailable LORENZOAriadne DELEON MD Unavailable Unavailable LORENZOAriadne MD Unavailable Unavailable LORENZOAriadne DELEON MD Unavailable Unavailable LORENZOAriadne DELEON MD Unavailable Unavailable LORENZOAriadne DELEON MD Unavailable Unavailable LORENZOAriadne STAHL MD Unavailable Unavailable Ariadne VENTURA MD Unavailable Unavailable JARVIS WILSON MD Unavailable Unavailable TIM, AKBAR MCDONOUGH MD Unavailable Unavailable TIM, AKBAR MCDONOUGH MD Unavailable Unavailable TIM, AKBAR MCDONOUGH MD Unavailable Unavailable TIM, AKBAR MCDONOUGH MD Unavailable Unavailable TIM, AKBAR MCDONOUGH MD Unavailable Unavailable TIM, AKBAR MCDONOUGH MD Unavailable Unavailable TIM, AKBAR MCDONOUGH MD Unavailable Unavailable TIM, AKBAR MCDONOUGH MD Unavailable Unavailable TIM, AKBAR MCDONOUGH MD Unavailable Unavailable TIM, AKBAR MCDONOUGH MD Unavailable Unavailable TIM, AKBAR MCDONOUGH MD Unavailable Unavailable TIM, AKBAR MCDONOUGH MD Unavailable Unavailable TIM, AKBAR MCDONOUGH MD Unavailable Unavailable TIM, AKBAR MCDONOUGH MD Unavailable Unavailable TIM, AKBAR MCDONOUGH MD Unavailable Unavailable TIM, AKBAR MCDONOUGH MD Unavailable Unavailable TIM, AKBAR MCDONOUGH MD Unavailable Unavailable TIM, PRYJMA COLIN MD Unavailable Unavailable TIM, PRYJMA COLIN MD Unavailable Unavailable TIM, PRYJMA COLIN MD Unavailable Unavailable TIM, PRYJMA COLIN MD Unavailable Unavailable TIM, PRYJMA COLIN MD Unavailable Unavailable TIM, PRYJMA COLIN MD Unavailable Unavailable TIM, PRYJMA COLIN MD Unavailable Unavailable TIM, PRYJMA COLIN MD Unavailable Unavailable TIM, PRYJMA COLIN MD Unavailable Unavailable TIM, PRYJMA COLIN MD Unavailable Unavailable TIM, PRYJMA COLIN MD Unavailable Unavailable TIM, PRYJMA COLIN MD Unavailable Unavailable TIM, PRYJMA COLIN MD Unavailable Unavailable Abelino, K Momo Unavailable Abelino, K Momo Unavailable Roca, K Momo Unavailable Roca, K Momo Unavailable SCHU, T KATY Unavailable Unavailable HILBORNE, JETT HIM SPECIALIST-C Unavailable Unavailable HILBORNE, JETT HIM SPECIALIST-C Unavailable Unavailable HILBORNE, JETT HIM SPECIALIST-C Unavailable Unavailable HILBORNE, JETT HIM SPECIALIST-C Unavailable Unavailable HILBORNE, JETT HIM SPECIALIST-C Unavailable Unavailable HILBORNE, JETT HIM SPECIALIST-C Unavailable Unavailable HILBORNE, JETT HIM SPECIALIST-C Unavailable Unavailable HILBORNE, JETT HIM SPECIALIST-C Unavailable Unavailable HILBORNE, JETT HIM SPECIALIST-C Unavailable Unavailable HILBORNE, JETT HIM SPECIALIST-C Unavailable Unavailable HILBORNE, JETT HIM SPECIALIST-C Unavailable Unavailable HILBORNE, JETT HIM SPECIALIST-C Unavailable Unavailable HILBORNE, JETT HIM SPECIALIST-C Unavailable Unavailable HILBORNE, JETT HIM SPECIALIST-C Unavailable Unavailable HILBORNE, JETT HIM SPECIALIST-C Unavailable Unavailable HILBORNE, JETT HIM SPECIALIST-C Unavailable Unavailable HILBORNE, JETT HIM SPECIALIST-C Unavailable Unavailable HILBORNE, JETT HIM SPECIALIST-C Unavailable Unavailable HILBORNE, JETT HIM SPECIALIST-C Unavailable Unavailable HILBORNE, JETT HIM SPECIALIST-C Unavailable Unavailable HILBORNE, JETT HIM SPECIALIST-C Unavailable Unavailable HILBORNE, JETT HIM SPECIALIST-C Unavailable Unavailable HILBORNE, JETT HIM SPECIALIST-C Unavailable Unavailable HILBORNE, JETT HIM SPECIALIST-C Unavailable Unavailable HILBORNE, JETT HIM SPECIALIST-C Unavailable Unavailable HILBORNE, JETT HIM SPECIALIST-C Unavailable Unavailable HILBORNE, JETT HIM SPECIALIST-C Unavailable Unavailable HILBORNE, JETT HIM SPECIALIST-C Unavailable Unavailable HILBORNE, JETT HIM SPECIALIST-C Unavailable Unavailable Anita Henry MD Unavailable Unavailable Anita Henry MD Unavailable Unavailable Anita Henry MD Unavailable Unavailable SNEHA Arenas MD Unavailable Unavailable SNEHA Arenas MD Unavailable Unavailable ArenasSNEHA bhat MD Unavailable Unavailable ArenasSNEHA bhat MD Unavailable Unavailable ArenasSNEHA bhat MD Unavailable Unavailable ArenasSNEHA bhat MD Unavailable Unavailable ArenasSNEHA bhat MD Unavailable Unavailable ArenasSNEHA bhat MD Unavailable Unavailable ArenasSNEHA bhat MD Unavailable Unavailable SNEHA Arenas MD Unavailable Unavailable ArenasSNEHA bhat MD Unavailable Unavailable ArenasSNEHA bhat MD Unavailable Unavailable SNEHA Arenas MD Unavailable Unavailable ArenasSNEHA bhat MD Unavailable Unavailable ArenasSNEHA bhat MD Unavailable Unavailable ArenasSNEHA bhat MD Unavailable Unavailable ArenasSNEHA bhat MD Unavailable Unavailable ArenasSNEHA bhat MD Unavailable Unavailable SNEHA Arenas MD Unavailable Unavailable SNEHA Arenas MD Unavailable Unavailable SNEHA Arenas MD Unavailable Unavailable BROUGHAL, C DAYO PA Unavailable Unavailable BROUGHAL, C DAYO PA Unavailable Unavailable BROUGHAL, C DAYO PA Unavailable Unavailable BROUGHAL, C DAYO PA Unavailable Unavailable BROUGHAL, C DAYO PA Unavailable Unavailable BROUGHAL, C DAYO PA Unavailable Unavailable Avelar Lucy PA-C Unavailable Juanis Avelarhel PA-C Unavailable Juanis Avelarhel PA-C Unavailable Valentino Lucy PA-C Unavailable Valentino Lucy PA-C Unavailable Valentino Lucy PA-C Unavailable Valentino Lucy PA-C Unavailable Valentino Lucy PA-C Unavailable BROUGHAL, C DAYO PA Unavailable Unavailable BROUGHAL, C DAYO PA Unavailable Unavailable BROUGHAL, C DAYO PA Unavailable Unavailable BROUGHAL, C DAYO PA Unavailable Unavailable BROUGHAL, C DAYO PA Unavailable Unavailable BROUGHAL, C DAYO PA Unavailable Unavailable MS, [facility] Unavailable Unavaila ble Wesley LOONEY MD Unavailable Unavailable Wesley LOONEY MD Unavailable Unavailable Wesley LOONEY MD Unavailable Unavailable Wesley LOONEY MD Unavailable Unavailable Wesley LOONEY MD Unavailable Unavailable Wesley LOONEY MD Unavailable Unavailable Wesley LOONEY MD Unavailable Unavailable Wesley LOONEY MD Unavailable Unavailable Wesley LOONEY MD Unavailable Unavailable Wesley LOONEY MD Unavailable Unavailable Wesley LOONEY MD Unavailable Unavailable Wesley LOONEY MD Unavailable Unavailable Wesley LOONEY MD Unavailable Unavailable Wesley LOONEY MD Unavailable Unavailable Wesley LOONEY MD Unavailable Unavailable Wesley LOONEY MD Unavailable Unavailable Wesley LOONEY MD Unavailable Unavailable Wesley LOONEY MD Unavailable Unavailable Wesley LOONEY MD Unavailable Unavailable Wesley LOONEY MD Unavailable Unavailable Wesley LOONEY MD Unavailable Unavailable Wesley LOONEY MD Unavailable Unavailable Wesley LOONEY MD Unavailable Unavailable Wesley LOONEY MD Unavailable Unavailable Wesley LOONEY MD Unavailable Unavailable Wesley LOONEY MD Unavailable Unavailable Wesley LOONEY MD Unavailable Unavailable Wesley LOONEY MD Unavailable Unavailable Wesley LOONEY MD Unavailable Unavailable Wesley LOONEY MD Unavailable Unavailable Wesley LOONEY MD Unavailable Unavailable Wesley LOONEY MD Unavailable Unavailable Wesley LOONEY MD Unavailable Unavailable Wesley LOONEY MD Unavailable Unavailable Wesley LOONEY MD Unavailable Unavailable Wesley LOONEY MD Unavailable Unavailable Wesley LOONEY MD Unavailable Unavailable Wesley LOONEY MD Unavailable Unavailable Wesley LOONEY MD Unavailable Unavailable Wesley LOONEY MD Unavailable Unavailable Wesley LOONEY MD Unavailable Unavailable Wesley LOONEY MD Unavailable Unavailable Wesley LOONEY MD Unavailable Unavailable Monique ALMONTE MD Unavailable Unavailable Monique ALMONTE MD Unavailable Unavailable Monique ALMONTE MD Unavailable Unavailable Monique ALMONTE MD Unavailable Unavailable Monique ALMONTE MD Unavailable Unavailable Monique ALMONTE MD Unavailable Unavailable Monique ALMONTE MD Unavailable Unavailable Monique ALMONTE MD Unavailable Unavailable Monique ALMONTE MD Unavailable Unavailable Monique ALMONTE MD Unavailable Unavailable Monique ALMONTE MD Unavailable Unavailable Monique ALMONTE MD Unavailable Unavailable Monique ALMONTE MD Unavailable Unavailable Monique ALMONTE MD Unavailable Unavailable Monique ALMONTE MD Unavailable Unavailable Monique ALMONTE MD Unavailable Unavailable Monique ALMONTE MD Unavailable Unavailable Monique ALMONTE MD Unavailable Unavailable Monique ALMONTE MD Unavailable Unavailable Monique ALMONTE MD Unavailable Unavailable Monique ALMONTE MD Unavailable Unavailable Monique ALMONTE MD Unavailable Unavailable Monique ALMONTE MD Unavailable Unavailable Monique ALMONTE MD Unavailable Unavailable Monique ALMONTE MD Unavailable Unavailable Monique ALMONTE MD Unavailable Unavailable Monique ALMONTE MD Unavailable Unavailable Monique ALMONTE MD Unavailable Unavailable Monique ALMONTE MD Unavailable Unavailable Monique ALMONTE MD Unavailable Unavailable Monique ALMONTE MD Unavailable Unavailable Monique ALMONTE MD Unavailable Unavailable Monique ALMONTE MD Unavailable Unavailable Monique ALMONTE MD Unavailable Unavailable Monique ALMONTE MD Unavailable Unavailable Monique ALMONTE MD Unavailable Unavailable Monique ALMONTE MD Unavailable Unavailable Monique ALMONTE MD Unavailable Unavailable Monique ALMONTE MD Unavailable Unavailable Monique ALMONTE MD Unavailable Unavailable Monique ALMONTE MD Unavailable Unavailable Monique ALMONTE MD Unavailable Unavailable Monique ALMONTE MD Unavailable Unavailable Monique ALMONTE MD Unavailable Unavailable Monique ALMONTE MD Unavailable Unavailable Monique ALMONTE MD Unavailable Unavailable Monique ALMONTE MD Unavailable Unavailable Monique ALMONTE MD Unavailable Unavailable Monique ALMONTE MD Unavailable Unavailable Bravo Wall MD Unavailable Unavailable Bravo Wall MD Unavailable Unavailable Bravo Wall MD Unavailable Unavailable Bravo Wall MD Unavailable Unavailable Bravo Wall MD Unavailable Unavailable Bravo Wall MD Unavailable Unavailable Bravo Wall MD Unavailable Unavailable Bravo Wall MD Unavailable Unavailable Bravo Wall MD Unavailable Unavailable DukeBravo MD Unavailable Unavailable Duke, Bravo Bonilla MD Unavailable Unavailable Duke, Bravo Bonilla MD Unavailable Unavailable Chehal[place], Bravo Bonilla MD Unavailable Unavailable Duke, Bravo Bonilla MD Unavailable Unavailable [place], Bravo Bonilla MD Unavailable Unavailable ChehalisBravo MD Unavailable Unavailable [place], Bravo Bonilla MD Unavailable Unavailable [place], Bravo Bonilla MD Unavailable Unavailable [place], Bravo Bonilla MD Unavailable Unavailable [place], Bravo Bonilla MD Unavailable Unavailable Duke, Bravo Bonilla MD Unavailable Unavailable Duke, Bravo Bonilla MD Unavailable Unavailable [place], Bravo Bonilla MD Unavailable Unavailable Duke, Bravo Bonilla MD Unavailable Unavailable [place], Bravo Bonilla MD Unavailable Unavailable [place], Bravo Bonilla MD Unavailable Unavailable [place], Bravo Bonilla MD Unavailable Unavailable Duke, Bravo Bonilla MD Unavailable Unavailable Duke, Bravo Bonilla MD Unavailable Unavailable [place], Bravo Bonilla MD Unavailable Unavailable Duke, Bravo Bonilla MD Unavailable Unavailable Duke, Bravo Bonilla MD Unavailable Unavailable Duke, Bravo Bonilla MD Unavailable Unavailable Duke, Bravo Bonilla MD Unavailable Unavailable Duke, Bravo Bonilla MD Unavailable Unavailable Duke, Bravo Bonilla MD Unavailable Unavailable [place], Bravo Bonilla MD Unavailable Unavailable [place], Bravo Bonilla MD Unavailable Unavailable [place], Bravo Bonilla MD Unavailable Unavailable [place], Bravo Bonilla MD Unavailable Unavailable ChehalisBravo MD Unavailable Unavailable [place], Bravo Bonilla MD Unavailable Unavailable DukeBravo MD Unavailable Unavailable Duke, Bravo Bonilla MD Unavailable Unavailable Duke, Bravo Bonilla MD Unavailable Unavailable [place], Bravo Bonilla MD Unavailable Unavailable DukeBravo MD Unavailable Unavailable DukeBravo MD Unavailable Unavailable Anita Pichardo DO Unavailable Unavailable Adi, D Haim Unavailable Unavailable Adi, D Haim Unavailable Unavailable Adi, D Haim Unavailable Unavailable Adi, D Haim Unavailable Unavailable Adi, D Haim Unavailable Unavailable Adi, D Haim Unavailable Unavailable Adi, D Haim Unavailable Unavailable Adi, D Haim Unavailable Unavailable Adi, D Haim Unavailable Unavailable Adi, D Haim Unavailable Unavailable Adi, D Haim Unavailable Unavailable Adi, D Haim Unavailable Unavailable Adi, D Haim Unavailable Unavailable Tony Sams Unavailable Unavailable Tony Sams Unavailable Unavailable Tony Sams Unavailable Unavailable Re-disclosure Warning The records that you are about to access may contain information from federally-assisted alcohol or drug abuse programs. If such information is present, then the following federally mandated warning applies: This information has been disclosed to you from records protected by federal confidentiality rules (42 CFR part 2). The federal rules prohibit you from making any further disclosure of this information unless further disclosure is expressly permitted by the written consent of the person to whom it pertains or as otherwise permitted by 42 CFR part 2. A general authorization for the release of medical or other information is NOT sufficient for this purpose. The Federal rules restrict any use of the information to criminally investigate or prosecute any alcohol or drug abuse patient.The records that you are about to access may contain highly sensitive health information, the redisclosure of which is protected by Article 27-F of the [facility] Public Health law. If you continue you may have access to information: Regarding HIV / AIDS; Provided by facilities licensed or operated by the [facility] Office of Mental Health; or Provided by the [facility] Office for People With Developmental Disabilities. If such information is present, then the following [facility] mandated warning applies: This information has been disclosed to you from confidential records which are protected by state law. State law prohibits you from making any further disclosure of this information without the specific written consent of the person to whom it pertains, or as otherwise permitted by law. Any unauthorized further disclosure in violation of state law may result in a fine or intermediate sentence or both. A general authorization for the release of medical or other information is NOT sufficient authorization for further disc losure. Allergies and Adverse Reactions Type Description Substance Reaction Status Data Source(s ) Drug allergy Drug allergy enoxaparin (From Lovenox) Rash Unknown Reac tion [facility] Drug allergy Drug allergy codeine Increased heart rate, nausea Unknown Reaction [facility] Drug allergy ENOXAPARIN SODIUM ENOXAPARIN [facility] Encounters Encounter Providers Location Date Indications Data Source(s ) Outpatient Attender: Haim Sams 08/12/2021 12:00:00 AM [facility] Outpatient Attender: Jad Sommer MDAttender: Angela SOMMER MD CPSCAORT-LABCOVEJN 06/12/2021 10:14:00 AM EST - 06/12/2021 10:15:00 AM ES T PRE OP JAD SOMMER; Z01.812, R91.8 [facility] PRE OP JAD ROS; Z01.812, R91.8 Patient discharged. Outpatient Attender: JAD Mcmillan/Kayla/Darien/ Reindl 06/04/2021 02:15:00 PM EST [facility] ([facility], ) Outpatient Attender: Luis Arenas MD ER-LAB 06/01/2021 12:53:00 PM EST [facility] Outpatient Attender: Luis Arenas MD ER-CTCMEDONC 06/01/2021 12 :03:00 PM [facility] Outpatient CPSCAORT-IMAPD 05/22/2021 01:53 :00 PM EDT - 05/22/2021 01:54:00 PM EDT R91.8 [facility] R91.8 Patient discharged. Outpatient Attender: JAD Mcmillan/Kayla/Darien/ Reindl 05/07/2021 02:45:00 PM EDT [facility] ([facility], ) Outpatient [address] [facility] [address] [place] [address] 05/04/2021 12:00:00 AM EDT eCW1 ([facility]) Outpatient Attender: JETT OLIVEIRA-Shu ER-RAD 04/27/2021 10: 11:00 AM EDT [facility] Outpatient [address] [place] [address] [address] [facility] [address] 04/27/2021 12:00:00 AM EDT eCW1 ([facility]) Outpatient [address] [facility] [address] [place] [address] 04/22/2021 12:00:00 AM EDT eCW1 ([facility]) Outpatient Attender: Haim JaimeA-LLUHSUR 04/15 12:00:00 AM EDT - 04/15/2021 02:30:59 PM EDT TELEMED [facility] Outpatient Attender: JETT NOONAN HIM SPECIALIST-C ER-RAD 04/13/2021 11: 05:00 AM EDT [facility] Outpatient [address] [facility] [address] [place] [address] 04/13/2021 12:00:00 AM EDT eCW1 ([facility]) Outpatient [address] [facility] [address] [place] [address] 04/03/2021 12:00:00 AM EDT eCW1 ([facility]) Outpatient Attender: JAMES BHAT MD CPSCAORT-LABPNP 03:57:00 PM EDT - 04/02/2021 03:58:00 PM [facility] Outpatient CPSCAORT-IMAPD 04/01/2021 07:00 :00 AM EDT - 04/01/2021 07:01:00 AM EDT Z93.3 [facility] Z93.3 Patient discharged. Outpatient [address] [facility] [address] [place] [address] 04/01/2021 12:00:00 AM EDT eCW1 ([facility]) Outpatient [address] [facility] [address] [place] [address] 04/01/2021 12:00:00 AM EDT eCW1 ([facility]) Outpatient Attender: Haim Sams 07A-LLUHSUR 03/11 12:00:00 AM EDT - 03/11/2021 01:59:53 PM EDT [facility] Outpatient [address] [facility] [address] [place] [address] 02/09/2021 12:00:00 AM EDT eCW1 ([facility]) Outpatient Attender: Haim King: GRACIELA Jimenez 07A-LLUHSUR 02/04/2021 12:00:00 AM EDT - 02/04/2021 03:23:14 PM EDT TELEMED [facility] Outpatient Attender: Nette Mccullough MD CPSCAORT-IMAPD 2020 12:46:00 PM EDT - 01/12/2021 12:47:00 PM EDT K57.92 [facility] K57.92 Patient discharged. Outpatient Attender: COLIN DUMNOT MD CPSCASTEPHANIE-CPSCNGSR 12/30 03:45:00 PM EDT - 12/30/2020 03:46:00 PM EDT [facility] Patient discharged. Outpatient [address] [facility] [address] [facility] [address] 12/29/2020 12:00:00 AM EDT eC1 ([facility]) Outpatient Attender: COLIN DUMONT MD CPSCASTEPHANIE-CPSCNGSR 12/16 09:55:00 AM EDT - 12/16/2020 09:56:00 AM EDT [facility] Patient discharged. Outpatient Attender: Ariadne Garg MD CPSCAORT-IMAPD 11:53:00 AM EDT - 12/10/2020 11:54:[address] [facility] CT SCAN Patient discharged. Outpatient Attender: Haim King: GRACIELA Jimenez 07A-LLUHSUR 12/10/2020 12:00:00 AM EDT - 12/10/2020 [facility]44[facility] DAYO FRIAS CPSCAORT-CPSCADIS 10:12:00 AM EDT - 12/08/2020 10:13:00 AM EDT [facility] Patient discharged. Outpatient Attender: DAYO BECK PAConsultant: [facility] ER-LAB-PNP 12/04/2020 12:17:00 PM EDT [facility] Outpatient Attender: DAYO FRIAS CPSCAORT-CPSCADIS 10:46:00 AM EDT - 11/28/2020 10:47:00 [facility] Outpatient Attender: COLIN DUMONT MD CPSEDUIN-IMAPD 021 09:40:00 AM EDT - 11/28/2020 09:41:00 AM EDT ABSCESS CK [facility] ABSCESS CK Patient discharged. Outpatient Attender: COLIN DUMONT MD CPSABIELIMAPD 021 01:57:00 PM EDT - 11/25/2020 01:58:00 PM EDT K65.1 [facility] K65.1 Patient discharged. Outpatient Attender: COLIN DUMONT MD CPSCASTEPHANIE-CPSCNGSR 11/25 12:57:00 PM EDT - 11/25/2020 12:58:00 PM EDT [facility] Patient discharged. Outpatient Attender: Emerson Prieto DO ER-LAB-PNP 11/24/2020 04:51:00 P M EDT [facility] Outpatient Attender: Luis Arenas MD 11/24/2020 11:50:00 AM EDT [facility] Outpatient Attender: EMELY ALMONTE MD ER-CTCRAD 11/24/2020 11:50:00 AM EDT [facility] Outpatient [address] [facility] [address] [facility] [address] 11/20/2020 12:00:00 AM EDT [facility] Outpatient Attender: COLIN DUMONT MD CPSCAORT-CPSCNGSR 11/18 10:57:00 AM EDT - 11/18/2020 10:58:00 AM EDT [facility] Patient discharged. Outpatient Attender: DAYO BECK PAConsultant: [facility] ER-LAB-PNP 11/17/2020 02:35:00 PM EDT [facility] Outpatient [address] [facility] [address] [place] [address] 11/17/2020 12:00:00 AM EDT [facility]CW1 [facility] Outpatient [address] [facility] [address] [place] [address] 11/17/2020 12:00:00 AM EDT [facility]CW1 [facility] Inpatient Attender: COLIN Garcia nder: Saskia Mcgarry MDAttender: Saskia Mcgarry MDAdmitter: COLIN DUMONT MDConsultant: DAYO FRIAS CPSCAORT-MSU3 11/07/2020 03:06:00 PM EDT - 11/14/2020 07:28:00 PM EDT INTRA-ABDOMINAL ABSCESS WITH I&D AND DRAIN [facility] INTRA-ABDOMINAL ABSCESS WITH I&D AND ELBA IN Patient discharged. Outpatient Attender: JETT NOONAN HIM SPECIALIST-C ER-LAB-PNP 10/28/2020 03:48:00 PM EDT [facility] Outpatient [address] [facility] [address] [place] [address] 10/28/2020 12:00:00 AM EDT eCW1 ([facility]) Outpatient [address] [facility] [address] [place] [address] 10/28/2020 12:00:00 AM EDT eCW1 ([facility]) Outpatient [address] [facility] [address] [place] [address] 10/23/2020 12:00:00 AM EDT eCW1 ([facility]) Outpatient [address] [facility] [address] [place] [address] 10/15/2020 12:00:00 AM EDT eCW1 ([facility]) Outpatient Attender: Haim Sams 07A-LLUHSUR 10/08 12:00:00 AM EDT - 10/08/2020 02:30:17 PM EDT s/p op [facility] s/p op Outpatient [address] [facility] [address] [place] [address] 10/08/2020 12:00:00 AM EDT eCW1 ([facility]) Inpatient Attender: LEATHA VENTURA MDAdmitter: LEATHA PANDEY MD [id number] 09/30/2020 12:00:00 AM EDT - 10/08/2020 11:27:00 AM EDT Diverticulitis of intestine, part unspecified, without perforation or abscess without bleeding [facility] Diverticulitis of intestine, part unspec ified, without perforation or abscess without bleeding Patient discharged. Outpatient Attender: Haim King: Haim falcon 09/25/2020 12:00:00 AM EST [facility] Outpatient Referrer: LEATHA VENTURA MD 09/24/2020 12:00:0 0 AM [facility] Inpatient Attender: Haim Sheets tender: DARLENE LOONEY MDAttender: Shawn Perezdmitter: EDMUNDO RANGEL MDReferrer: Shawn Ornelasonsultant: ROGELIO SUH MDConsultant: Chad Wall MD 07A-[id number] 09/24/2020 12:00:00 AM EST - 09/30/2020 02:08:00 PM EDT Hypotension, unspecified [facility] Hypotension, unspecified Patient discharged. Inpatient Attender: LEATHA VENTURA MD Admitter: LEATHA VENTURA MDReferrer: KATY HAN 09/24/2020 12:00:00 AM EST Other reduced mobilit [facility] Other reduced mobility [address] [place] [address] 09/23/2020 12:00:00 AM EST eCW1 ([facility]) Inpatient Attender: LEATHA VENTURA MD Admitter: LEATHA VENTURA MDReferrer: KATY HAN [id number] 09/22/2020 12:00:00 AM EST - 09/24/2020 09:19:00 PM EST Colostomy status [facility] Colostomy status Patient discharged. Inpatient Attender: Haim Sheets tender: DEISY WRIGHT MDAdmitter: Haim Fongsultant: ROGELIO SUH MD 07A-05A 09/14/2020 12:00:00 AM EST - 09/22/2020 12:00:00 AM EST Generalized abdominal pain [facility] Generalized abdominal pain Patient discharged. Emergency Attender: Manolo Miller DAttender: Mitch Pichardo DOAttender: Mitch Pichardo CPSCAORT-ED 09/13/2020 02:39:00 PM EST - 09/13/2020 08:23:00 PM EST POST SURGICAL PAIN [facility] POST SURGICAL PAIN Patient discharged. Emergency Attender: Jemima Spears MDAttender: JEMIMA SPEARS MD ER-ER 09/12/2020 05:26:00 PM EST - 09/12/2020 07:10:00 PM EST [facility] Patient discharged. Outpatient Attender: JARVIS WILSON MDAttender: JARVIS STEELE MD ER-ASUR 09/12/2020 09:27:00 AM [facility] Hospital Admission cancelled. Disregard status an d admitted date. Outpatient Attender: Luis Arenas MDAttender: LUIS BHAT MD ER-WHS 09/11/2020 03:42:00 AM [facility] Outpatient Attender: JARVIS WILSON MDAttender: JARVIS STEELE MD ER-LAB 09/09/2020 12:00:00 AM [facility] Outpatient [address] [facility] [address] [place] [address] 09/09/2020 12:00:00 AM EST eCW1 ([facility]) (TEL) [facility] 2020 12:00:00 AM EST eCW1 ([facility]) (OV) Office Visit [facility] ([facility]) 09/04/2020 12:00:00 AM EST eCW1 ([facility]) (TEL) [facility] ([place]) 2020 12:00:00 AM EST eCW1 ([facility]) Outpatient Attender: LISA CONSTANTINO MD ER-RAD 08/28/2020 03:39:00 AM [facility] Outpatient Attender: LISA CONSTANTINO MD 08/25/2020 12:30:00 PM [facility] Hospital Admission cancelled. Disregard status an d admitted date. Outpatient Attender: LISA CONSTANTINO MD ER-LAB 08/25/2020 09:31:00 AM [facility] Outpatient Attender: Luis Arenas MDAttender: LUIS BHAT MD ER-LAB 08/25/2020 09:29:00 AM [facility] Outpatient Attender: RENARD PINEDA MD 08/20/2020 08:00:00 AM [facility] Admission cancelled. Disregard status an d admitted date. (Endos) Endoscopy [facility] ([facility]) 08/20/2020 12:00:00 AM EST eCW1 ([facility]) Outpatient Attender: RENARD PINEDA MD ER-LAB 08/15/2020 12:00:00 AM [facility] Outpatient [address] [place] [address] 08/06/2020 12:00:00 AM EST eCW1 ([facility]) Outpatient [address] [facility] [address] [place] [address] 07/29/2020 12:00:00 AM EST eCW1 ([facility]) (F/U) Follow Up Visit MD [facility] ([place]) 07/17/2020 12:00:00 AM EST eCW1 ([facility]) Emergency Attender: KAREL VALDIVIA MD ER-ER 1 09/09/2019 09:59:00 AM EST - 07/09/2020 02:30:00 PM [facility] Patient discharged. Outpatient Attender: RENARD PINEDA MD ER-LAB 07/08/2020 10:38:00 AM [facility] (TEL) [facility] ([place]) 2019 12:00:00 AM EST eCW1 ([facility]) (TEL) [facility] ([place] 2019 12:00:00 AM EST eCW1 ([facility]) Outpatient Attender: Momo RocaAttender: EMILI ROCA ER -CAN 07/02/2020 03:35:00 PM [facility] Outpatient [address] [facility] [address] [place] [address] 07/02/2020 12:00:00 AM EST eCW1 ([facility]) (OV) [facility] Visit [facility] ([facility]) 06/26/2020 12:00:00 AM EST eCW1 ([facility]) (TEL) [facility] ([place] 2019 12:00:00 AM EST eCW1 ([facility]) Outpatient Attender: RENARD PINEDA MD ER-RAD 06/02/2020 01:53:00 PM EST [facility] (TEL) [facility] ([place]) 2019 12:00:00 AM EST eCW1 ([facility]) Outpatient Attender: JETT SARAN OLIVEIRA-C ER-LAB 05/20/2020 07: 56:00 AM EST [facility] Outpatient [address] [facility] [address] [place] [address] 05/12/2020 12:00:00 AM EDT eCW1 ([facility]) Outpatient Attender: Luis Arenas MDAttender: LUIS BHAT MD ER-CTCMEDONC 04/24/2020 01:55:00 PM EDT [facility] Preadmit Attender: Luis Arenas MDAttender: LUIS BHAT MD 04/21/2020 03:34:00 PM EDT [facility] Outpatient [address] [facility] [address] [place] [address] 04/18/2020 12:00:00 AM EDT eCW1 ([facility]) Outpatient Attender: Luis Arenas MDAttender: LUIS BHAT MD ER-LAB 04/16/2020 09:40:00 AM EDT [facility] Outpatient Attender: EMELY ALMONTE MD ER-CTCRAD 03/27/2020 08:46:00 AM EDT [facility] Outpatient Attender: Luis Arenas MDAttender: LUIS BHAT MD ER-WHS 03/26/2020 12:42:00 AM EDT [facility] Outpatient Attender: Luis Arenas MDAttender: LUIS BHAT MD ER-CTCMEDONC 03/20/2020 11:01:00 AM EDT [facility] Outpatient Attender: Luis Arenas MDAttender: LUIS BHAT MD ER-LAB 03/14/2020 01:22:00 PM [facility] Outpatient Attender: EMELY ALMONTE MD 03/06/2020 07:24:00 AM [facility]/05/2020 07:30:00 AM [facility] Outpatient Attender: EMELY ALMONTE MD 03/04/2020 08:28:00 AM [facility] Outpatient Attender: EMELY ALMONTE MD 03/03/2020 07:43:00 AM [facility] Outpatient Attender: EMELY ALMONTE MD 02/29/2020 02:27:00 PM [facility] 02/28/2020 08:18:00 AM [facility] Outpatient Attender: EMELY ALMONTE MD 02/27/2020 09:01:00 AM [facility] Outpatient Attender: EMELY ALMONTE MD 02/26/2020 08:22:00 AM [facility] Outpatient Attender: EMELY ALMONTE MD [facility] 02/26/2020 07:19:00 AM [facility] Outpatient Attender: EMELY ALMONTE MD 02/25/2020 10:08:00 AM [facility] Outpatient Attender: EMELY ALMONTE MD 02/22/2020 10:34:00 AM [facility] Outpatient Attender: EMELY ALMONTE MD 02/21/2020 10:01:00 AM [facility] 02/20/2020 07:51:00 AM [facility] Outpatient Attender: EMELY ALMONTE MD 02/19/2020 07:35:00 AM [facility] Outpatient Attender: EMELY ALMONTE MD 02/18/2020 12:51:00 PM [facility] Outpatient Attender: EMELY ALMONTE MD 02/15/2020 07:20:00 AM [facility] Outpatient Attender: EMELY ALMONTE MD 02/14/2020 07:39:00 AM [facility] Outpatient Attender: EMELY PETIT-CTCRAD 02/13/2020 07:34:00 AM [facility] Outpatient Attender: EMELY ALMONTE MD 02/12/2020 08:07:00 AM [facility] Outpatient Attender: WALTER OLIVEIRA ER-RAD 02/08/2020 01:14 :00 PM [facility] Outpatient Attender: EMELY ALMONTE MD 02/07/2020 11:45:00 AM [facility] Outpatient Attender: EMELY ALMONTE MD 02/05/2020 08:49:00 AM [facility] Outpatient Attender: EMELY ALMONTE MD 02/05/2020 06:45:00 AM [facility] Outpatient Attender: EMELY ALMONTE MD ER-CTCRAD 02/04/2020 02:58:00 AM [facility] Outpatient Attender: Luis Arenas MDAttender: LUIS BHAT MD ER-CTCMEDONC 01/28/2020 03:29:00 PM [facility] Outpatient Attender: JETT OLIVEIRA-C ER-MOB 01/11/2020 09: 56:00 AM [facility] Outpatient Attender: Luis Arenas MDAttender: LUIS BHAT MD ER-MOB 01/11/2020 09:54:00 AM [facility] Outpatient Attender: COLIN DUMONT MD ER-ASUR 12/17/2019 06:17:00 AM [facility] Outpatient Attender: COLIN DUMONT MD ER-LAB 12/14/2019 08:03:00 AM [facility] Outpatient Attender: COLIN DUMONT MD ER-ASUR 11/26/2019 07:43:00 AM [facility] Admission cancelled. Disregard status an d admitted date. Outpatient Attender: COLIN DUMNOT MD ER-HICCS 11/23/2019 08:11:00 AM [facility] Outpatient Attender: WALTER OLIVEIRA ER-MOB 11/02/2019 01:42 :00 PM [facility] Preadmit Attender: SAVITA FRIAS 10/29 03:23:00 PM EDT - 12/16/2019 12:00:00 AM [facility] Admission cancelled. Disregard status an d admitted date. Outpatient Attender: EMELY ALMONTE MD ER-CTCRAD 10/23/2019 11:18:00 AM EDT [facility] Outpatient Attender: Luis Arneas MDAttender: LUIS BHAT MD ER-CTCMEDONC 10/22/2019 07:47:00 AM [facility] Outpatient Attender: COLIN DUMONT MD ER-RAD 10/09/2019 09:48:00 AM EDT [facility] Outpatient Attender: SAVITA FRIAS ER-MOB 09/27/2019 02:33:00 AM [facility] Outpatient Attender: JETT KENYONP-C ER-WHS 09/20/2019 01: 34:00 AM [facility] Outpatient Attender: Lucy Benavides: RODRIGUEZ AVELAR PA-C ER-LAB-PNP 09/18/2019 03:41:00 PM [facility] Outpatient Attender: JETT NOONAN HIM SPECIALIST-C ER-LAB 09/15/2019 07: 11:00 AM [facility] Outpatient Attender: JETT OLIVEIRA-C ER-WHS 09/10/2019 06: 46:00 AM [facility] Immunizations Vaccine Date Status Description Data Source(s) IIV3. This is one of two codes replacing CVX 15, which is being retired. 04/22/2021 03:20:00 PM EDT completed eCW1 ([facility]) IIV3. This is one of two codes replacing CVX 15, which is being retired. 04/22/2021 03:20:00 PM EDT completed eCW1 ([facility]) IIV3. This is one of two codes replacing CVX 15, which is being retired. 04/22/2021 03:20:00 PM EDT completed eCW1 ([facility]) Medications Medication Brand Name Start Date Product Form Dose Route Admi nistrative Instructions Pharmacy Instructions Status Indications Reaction Description Data Source(s) 500 mg 05/16/2021 12:00:00 AM EDT tablet 6 TAKE 2 TABLETS AT 1PM', 2 TABLETS AT 2PM' AND 2 TABLETS AT 11PM' THE DAY PRIOR TO YOUR SURGERY TAKE 2 TABLETS AT 1PM', 2 TABLETS AT 2PM' AND 2 TABLETS AT 11PM' THE DAY PRIOR TO YOUR SURGERY SOLD: 05/18/2021 [facility] Metronidazole 500 MG Oral Tablet METRONIDAZOLE 04/15/2021 12:0 0:00 AM EDT tablet 3 TAKE 1 TABLET BY JESÚS TH AT TAKE ONE TABLET BY MOUTH IN THE EVENING ,1 AT TAKE TWO TABLETS BY MOUTH IN THE EVENING AND 1 AT 11PM DAY PRIOR TO SURGERY TAKE 1 TABLET BY MOUTH AT TAKE ONE TABLET BY MOUTH IN THE EVENING ,1 AT TAKE TWO TABLETS BY MOUTH IN THE EVENING AND 1 AT 11PM DAY PRIOR TO SURGERY SOLD: 04/17/2021 [facility] Azithromycin 250 MG Oral Tablet Azithromycin 250 MG 04/13/2021 1 2:00:00 AM EDT active Azithromycin 250 MG eCW1 ([facility]) 250 mg 04/13/2021 12:00:00 AM EDT tablet 6 TAKE TWO TABLETS BY MOUTH AT ONCE ON THE FIRST DAY THEN TAKE ONE DAILY THEREAFTER TAKE TWO TABLETS BY MOUTH AT ONCE ON THE FIRST DAY THEN TAKE ONE DAILY THEREAFTER SOLD: 04/13/2021 [facility] 125 mcg (5,000 unit) 04/08/2021 12:00:00 AM EDT capsule 12 TAKE ONE CAPSULE BY MOUTH EVERY 7 DAYS TAKE ONE CAPSULE BY MOUTH EVERY 7 DAYS SOLD: 2021 [facility] 20 mg 12/29/2020 12:00:00 AM EDT tablet 90 TAKE ONE TABLET BY MOUTH EVERY DAY WITH FOOD TAKE ONE TABLET BY MOUTH EVERY DAY WITH FOOD SOLD: 04/02/2021 [facility] 20 mg 12/29/2020 12:00:00 AM EDT tablet 90 TAKE ONE TABLET BY MOUTH EVERY DAY WITH FOOD TAKE ONE TABLET BY MOUTH EVERY DAY WITH FOOD SOLD: 01/01/2021 [facility] Amoxicillin 875 MG / Clavulanate 125 MG Oral Tablet Amoxicillin-Pot Clavulanate 875-125 MG Oral Tablet (AUGMENTIN) Amoxicillin-Pot Clavulanate 875-125 MG O ral Tablet (AUGMENTIN) 11/28/2020 12:00:00 AM EDT 1 {tbl} Oral active Take 1 tablet by mouth every 12 (twelve) hours [facility] Amoxicillin 875 MG / Clavulanate 125 MG Oral Tablet 87 5-125 mg AMOXICILLIN/POTASSIUM CLAV 11/28/2020 12:00:00 AM EDT tablet 56 TAKE 1 TABLET BY MOUTH EVERY 12 HOURS TAKE 1 TABLET BY MOUTH EVERY 12 HOURS SOLD: 11/28/2020 [facility] 2.5 mg 10/31/2020 12:00:00 AM EDT tablet 90 TAKE ONE TABLET BY MOUTH AT BEDTIME TAKE ONE TABLET BY MOUTH AT BEDTIME SOLD: 11/02/2020 [facility] 2.5 mg 10/31/2020 12:00:00 AM EDT tablet 90 TAKE ONE TABLET BY MOUTH AT BEDTIME TAKE ONE TABLET BY MOUTH AT BEDTIME SOLD: 02/09/2021 [facility] 2.5 mg 10/31/2020 12:00:00 AM EDT tablet 90 TAKE ONE TABLET BY MOUTH AT BEDTIME TAKE ONE TABLET BY MOUTH AT BEDTIME SOLD: 05/07/2021 [facility] NITROFURANTOIN, MACROCRYSTALS 25 MG / Ni trofurantoin, Monohydrate 75 MG Oral Capsule [Macrobid] Macrobid 100 MG Macrobid 100 MG 10/28/2020 12:00:00 AM EDT 1.0 {capsule_with_food} active Macrobid 100 MG eCW1 ([facility]) NITROFURANTOIN, MACROCRYSTALS 25 MG / Ni trofurantoin, Monohydrate 75 MG Oral Capsule [Macrobid] Macrobid 100 MG Macrobid 100 MG 10/28/2020 12:00:00 AM EDT 1.0 {capsule_with_food} active Macrobid 100 MG eCW1 ([facility]) NITROFURANTOIN, MACROCRYSTALS 25 MG / Ni trofurantoin, Monohydrate 75 MG Oral Capsule [Macrobid] Macrobid 100 MG Macrobid 100 MG 10/28/2020 12:00:00 AM EDT 1.0 {capsule_with_food} active Macrobid 100 MG eCW1 ([facility]) NITROFURANTOIN, MACROCRYSTALS 25 MG / Ni trofurantoin, Monohydrate 75 MG Oral Capsule [Macrobid] Macrobid 100 MG Macrobid 100 MG 10/28/2020 12:00:00 AM EDT 1.0 {capsule_with_food} active Macrobid 100 MG eCW1 ([facility]) 100 mg 10/28/2020 12:00:00 AM EDT capsule 10 TAKE 1 CAPSULE BY MOUTH WITH FOOD TWO TIMES A DAY FOR 5 DAYS TAKE 1 CAPSULE BY MOUTH WITH FOOD TWO TI MES A DAY FOR 5 DAYS SOLD: 10/28/2020 [facility] - DuoDerm Signal Dressing - 10/23/2020 1 2:00:00 AM EDT active DuoDerm Signal D ressing - eCW1 ([facility]) DuoDerm Signal Dressing - DuoDerm Signal Dressing - 10/23/2020 1 2:00:00 AM EDT active DuoDerm Signal D ressing - eCW1 ([facility]) DuoDerm Signal Dressing - DuoDerm Signal Dressing - 10/23/2020 1 2:00:00 AM EDT active DuoDerm Signal D ressing - eCW1 ([facility]) DuoDerm Signal Dressing - DuoDerm Signal Dressing - 10/23/2020 1 2:00:00 AM EDT active DuoDerm Signal D ressing - eCW1 ([facility]) DuoDerm Signal Dressing - DuoDerm Signal Dressing - 10/23/2020 1 2:00:00 AM EDT active DuoDerm Signal D ressing - eCW1 ([facility]) DuoDerm Signal Dressing - DuoDerm Signal Dressing - 10/23/2020 1 2:00:00 AM EDT active DuoDerm Signal D ressing - eCW1 ([facility]) DuoDerm Signal Dressing - DuoDerm Signal Dressing - 10/23/2020 1 2:00:00 AM EDT active DuoDerm Signal D ressing - eCW1 ([facility]) DuoDerm Signal Dressing - DuoDerm Signal Dressing - 10/23/2020 1 2:00:00 AM EDT active DuoDerm Signal D ressing - eCW1 ([facility]) DuoDerm Signal Dressing - DuoDerm Signal Dressing - 10/23/2020 1 2:00:00 AM EDT active DuoDerm Signal D ressing - eCW1 ([facility]) DuoDerm Signal Dressing - DuoDerm Signal Dressing - 10/23/2020 1 2:00:00 AM EDT active DuoDerm Signal D ressing - eCW1 ([facility]) DuoDerm Signal Dressing - DuoDerm Signal Dressing - 10/23/2020 1 2:00:00 AM EDT active DuoDerm Signal D ressing - eCW1 ([facility]) DuoDerm Signal Dressing - DuoDerm Signal Dressing - 10/23/2020 1 2:00:00 AM EDT active DuoDerm Signal D ressing - eCW1 ([facility]) DuoDerm Signal Dressing - DuoDerm Signal Dressing - 10/23/2020 1 2:00:00 AM EDT active DuoDerm Signal D ressing - eCW1 ([facility]) DuoDerm Signal Dressing - DuoDerm Signal Dressing - 10/23/2020 1 2:00:00 AM EDT active DuoDerm Signal D ressing - eCW1 ([facility]) DuoDerm Signal Dressing - DuoDerm Signal Dressing - 10/23/2020 1 2:00:00 AM EDT active DuoDerm Signal D ressing - eCW1 ([facility]) 5 mg 10/08/2020 12:00:00 AM EDT tablet 18 TAKE 2 TABLETS BY MOUTH EVERY 4 HOURS NEEDED FOR PAIN FOR UP TO 3 DAYS MAXIMUM DAILY DOSE =12 TABLETS TAKE 2 TABLETS BY MOUTH EVERY 4 HOURS NEEDED FOR PAIN FOR UP TO 3 DAYS MAXIMUM DAILY DOSE =12 TABLETS SOLD: 10/08/2020 [facility] 5 % 10/08/2020 12:00:00 AM EDT adhesive patch,medicate d 30 PL[address] 1 PATCH ONTO THE SKIN DAILY 12 HOURS ON AND [address] 1 PATCH ONTO THE SKIN DAILY 12 HOURS ON AND 12 HOURS OFF SOLD: 10/08/2020 [facility] gabapentin 300 MG Oral Capsule Gabapentin 300 MG Oral Capsule (NEURONTIN) Gabapentin 300 MG Oral Capsule (NEURONTIN) 10/08/2020 12:00:00 AM EDT 300 mg Oral active Take 1 capsule by [facility] Three times daily [facility] POLYETHYLENE GLYCOL 3350 142 MG/ML Oral Solution Polyethylene Glycol 3350 17 GM/SCOOP Oral Powder (MiraLax) Polyethylene Glycol 3350 17 GM/SCOOP Ora l Powder (MiraLax) 10/08/2020 12:00:00 AM EDT 17 g Oral active Take 17 g by mouth daily as needed (constipation) [facility] sennosides, LONG-TERM 8.6 MG Oral Tablet Senna 8.6 MG Oral T ablet Senna 8.6 MG Oral Tablet 10/08/2020 12:00:00 AM EDT 2 {tbl} Oral active Take 2 tablets by mouth nightly as needed [facility] Docusate Sodium 100 MG Oral Capsule Docu sate Sodium 100 MG Oral Capsule (COLACE) Docusate Sodium 100 MG Oral Capsule (COLACE) 10/08/2020 12:00:00 AM EDT 100 mg Oral active Take 1 capsule by mouth Two Times Daily [facility] Lidocaine 5 % External Patch (LIDODERM) 8230-2736-26 10/09/19 12:00:00 AM EDT 1 {patch} Transdermal active Place 1 pa tch onto the skin daily 12 hours on 12 hours off [facility] Oxycodone Hydrochloride 5 MG Oral Tablet oxyCODONE HCl 5 MG Oral Tablet (ROXICODONE) oxyCODONE HCl 5 MG Oral Tablet (ROXICODONE) 10/08/2020 12:00:00 AM EDT 10 mg Oral completed Take 2 tablets by mouth every 4 (four) hours as needed for Pain for up to 3 days, Max Daily Dose: 60 mg [facility] 300 mg 10/08/2020 12:00:00 AM EDT capsule 90 TAKE 1 CAPSULE BY MOUTH THREE TIMES A DAY TAKE 1 CAPSULE BY MOUTH THREE TIMES A DAY SOLD: 10/08/2020 [facility] rivaroxaban 10 MG Oral Tablet rivaroxaban (XARELTO) ta blet 20 mg rivaroxaban (XARELTO) tablet 20 mg 10/06/2020 06:00:00 PM EDT 20 mg Oral active 20 mg, Oral, Daily with Dinner, First dose on Tue10/06/20 at 1800, For 30 days [facility] Medication administered onsite ondansetron (ZOFRAN) injection 4 mg 10/06/2020 10:13:58 AM EDT 4 mg Intravenous active [Order 1 Star t] Name: ondansetron (ZOFRAN) injection 4 mg Signed Summary: 4 mg, Intravenous, Every 8 hours PRN, Nausea, Vomiting, Starting 10/06/20 at 1013, For 7 days
Administer if unable to tolerate PO.
[Order 1 End] [Order 2 Start] Name: ondansetron (ZOFRAN) tablet 4 mg Signed Summary: 4 mg, Oral, Every 8 hours PRN, Nausea, Vomiting, Starting 10/06/20 at 1013, For 7 days
Administer if able to tolerate PO.
[Order 2 End] [facility] Medication administered onsite Docusate Sodium 100 MG Oral Capsule docusate sodium (C OLACE) capsule 100 mg docusate sodium (COLACE) capsule 100 mg 10/05/2020 09:00:00 AM EDT 100 mg Oral active 100 mg, Oral, 2 Times Daily, First dose on 10/05/20 at 0900, For 30 days [facility] Medication administered onsite sennosides, LONG-TERM 8.6 MG Oral Tablet senna tablet 2 tablet sen na tablet 2 tablet 10/05/2020 08:28:58 AM EDT 2 {tbl} Oral active 2 tablet, Oral, Nightly PRN, Constipation, Starting 10/05/20 at 0828, For 30 days [facility] Medication administered onsite 1 ML Enoxaparin sodium 100 MG/ML Prefill ed Syringe Enoxaparin Sodium 100 MG/ML Subcutaneous Solution (LOVENOX) Enoxaparin Sodium 100 MG/ML Subcutaneous Solution (LOVENOX) 10/03/2020 12:00:00 AM EDT 100 mg Subcutaneous aborted Inject 1 mL into the skin every 12 (twel ve) hours for 7 days [facility] oxyCODONE (ROXICODONE) immediate release tablet 10 mg 10/01/2020 03:04:09 PM EDT 10 mg Oral active [Order 1 Start] Name: oxyCODONE (ROXICODONE) immediate release tablet 10 mg Signed Summary: 10 mg, Oral, Every 4 hours PRN, Severe Pain (Pain Scale Score 7-10), Starting Tue10/01/20 at 1504, For 20 days
Oxycodone immediate release is limited to 10 mg per dose. Higher doses ( only) require Pain Service consultation and approval.
[Order 1 End] [Order 2 Start] Name: oxyCODONE (ROXICODONE) immediate release tablet 5 mg Signed Summary: 5 mg, Oral, Every 4 hours PRN, Moderate Pain (Pain Scale Score 4-6), Starting Tue10/01/20 at 1504, For 20 days
Oxycodone immediate release is limited to 10 mg per dose. Higher doses ( only) require Pain Service consultation and approval.
[Order 2 End] [facility] Medication administered onsite lidocaine (LIDODERM) 5 % patch 1 patch [id number] 09:00:00 AM EDT 1 {patch} Transdermal active 1 patch, T ransdermal, Daily Standard, First dose (after last modification) on Tue10/01/20 at 0900, For 23 doses
Apply to back 12 hours on - 12 hours off
Time to remove patch: 9:00 PM [facility] Medication administered onsite letrozole 2.5 MG Oral Tablet letrozole (FEMARA) tablet 2.5 mg letrozole (FEMARA) tablet 2.5 mg 09/30/2020 09:00:00 PM EDT 2.5 mg Oral acti ve 2.5 mg, Oral, Daily Standard, First dose (after last modification) on Tue09/30/20 at 2100, For 17 doses [facility] Medication administered onsite 1 ML Enoxaparin sodium 100 MG/ML Prefill ed Syringe enoxaparin sodium (LOVENOX) injection 100 mg enoxaparin sodium (LOVENOX) injection 100 mg 09:00:00 PM EDT 100 mg Subcutaneous aborted 100 mg, Subcutaneous, Every 12 hours Standard (2 times per day), First dose (after last modification) on Tue09/30/20 at 2100, For 56 doses [facility] Medication administered onsite gabapentin 300 MG Oral Capsule gabapentin (NEURONTIN) capsule 300 mg gabapentin (NEURONTIN) capsule 300 mg 09/30/2020 05:00:00 PM EDT 300 mg Oral active 300 mg, Oral, Three Times D aily Standard, First dose (after last modification) on Tue09/30/20 at 1700, For 40 doses [facility] Medication administered onsite pantoprazole 40 MG Delayed Release Oral Tablet pantoprazole (PROTONIX) EC tablet 40 mg pantoprazole (PROTONIX) EC tablet 40 mg 09/30/2020 05:00:00 PM E DT 40 mg Oral active 40 mg, Ora l, Two times daily before breakfast and dinner, First dose (after last modification) on Tue09/30/20 at 1700, For 33 doses
Do not crush or chew
[facility] Medication administered onsite Benzocaine 15 MG / Menthol 3.6 MG Oral L ozenge benzocaine-menthol (CEPACOL) 15- 3.6 MG per lozenge 1 lozenge benzocaine-menthol (CEPACOL) 15-3.6 MG p er lozenge 1 lozenge 09/30/2020 02:42:28 PM EDT 1 {lozenge} Mouth/Throat active 1 lozenge, Mouth/Throat, Every 2 hours PRN, Sore Throat, Starting Tue09/30/20 at 1442, For 386 hours [facility] Medication administered onsite gabapentin 300 MG Oral Capsule Gabapentin 300 MG Oral Capsule (NEURONTIN) Gabapentin 300 MG Oral Capsule (NEURONTIN) 09/30/2020 12:00:00 AM EDT 300 mg Oral aborted Take 1 capsule by mo ut Three times daily [facility] Oxycodone Hydrochloride 5 MG Oral Tablet oxyCODONE HCl 5 MG Oral Tablet (ROXICODONE) oxyCODONE HCl 5 MG Oral Tablet (ROXICODONE) 09/30/2020 12:00:00 AM EDT 10 mg Oral aborted Take 2 t ablets by mouth every 4 (four) hours as needed for up to 3 days, Max Daily Dose: 60 mg [facility] 1 ML Enoxaparin sodium 100 MG/ML Prefill ed Syringe Enoxaparin Sodium 100 MG/ML Subcutaneous Solution (LOVENOX) Enoxaparin Sodium 100 MG/ML Subcutaneous Solution (LOVENOX) 09/30/2020 12:00:00 AM EDT 100 mg Subcutaneous aborted Inject 1 mL into the skin every 12 (twel ve) hours [facility] potassium phosphate 155 MG / Sodium Phos phate, Dibasic 852 MG / Sodium Phosphate, Monobasic 130 MG Oral Tablet phosphorus (K PHOS NEUTRAL) tablet 500 mg phosphorus (K PHOS NEUTRAL) tablet 500 mg 09/29/2020 09:00:00 AM EDT 500 mg Oral completed 500 mg, Or al, 2 Times Daily, First dose on Tue09/29/20 at 0900, For 1 day
Each 250 mg tablet contains: elemental phosphorous 250 mg (8 mmol), sodium 298 mg (12.9 mEq), and potassium 45 mg (1.1 mEq)
[facility] Medication administered onsite 1 ML Enoxaparin sodium 100 MG/ML Prefill ed Syringe enoxaparin sodium (LOVENOX) injection 100 mg enoxaparin sodium (LOVENOX) injection 100 mg 09:00:00 AM EDT 100 mg Subcutaneous aborted 100 mg, Subcutaneous, Every 12 hours Standard (2 times per day), First dose (after last modification) on Tue09/29/20 at 0900, For 59 doses [facility] Medication administered onsite magnesium sulfate in dextrose 5 % infusion (premix) 1 g 0409 -[id number] 09/29/2020 07:00:00 AM EDT 1 g Intravenous completed 1 g, Intravenous, Administer over 60 Minutes, Once, Tue09/29/20 at 0700, For 1 dose [facility] Medication administered onsite 0.4 ML Enoxaparin sodium 100 MG/ML Prefi lled Syringe enoxaparin sodium (LOVENOX) injection 40 mg enoxaparin sodium (LOVENOX) injection 40 mg 09/28/2020 09:00:00 PM EDT 40 mg Subcutaneous aborted 40 mg, Subcutaneous, Every 12 hours Standard (2 times per day), First dose (after last modification) on Tue09/28/20 at 2100, For 30 days [facility] Medication administered onsite oxyCODONE (ROXICODONE) immediate release tablet 10 mg 09/28/2020 09:25:46 AM EDT 10 mg Oral aborted [Order 1 Start] Name: oxyCODONE (ROXICODONE) immediate release tablet 10 mg Signed Summary: 10 mg, Oral, Every 4 hours PRN, Severe Pain (Pain Scale Score 7-10), Starting [place] [place] 09/28/20 at 0925, For 3 days
Oxycodone immediate release is limited to 10 mg per dose. Higher doses ( only) require Pain Service consultation and approval.
[Order 1 End] [Order 2 Start] Name: oxyCODONE (ROXICODONE) immediate release tablet 5 mg Signed Summary: 5 mg, Oral, Every 4 hours PRN, Moderate Pain (Pain Scale Score 4-6), Starting 09/28/20 at 0925, For 3 days
Oxycodone immediate release is limited to 10 mg per dose. Higher doses ( only) require Pain Service consultation and approval.
[Order 2 End] [facility] Medication administered onsite 0.4 ML Enoxaparin sodium 100 MG/ML Prefi lled Syringe enoxaparin sodium (LOVENOX) injection 40 mg enoxaparin sodium (LOVENOX) injection 40 mg 09/27/2020 09:00:00 AM EST 40 mg Subcutaneous aborted 40 mg, Subcutaneous, Daily Standard, First dose on 09/27/20 at 0900, For 30 days [facility] Medication administered onsite lactated ringers bolus 1,000 mL [id number] 09/27/2020 12:15:00 AM EST 1000 mL Intravenous completed 1,000 mL , Intravenous, Once, 09/27/20 at 0015, For 1 dose [facility] Medication administered onsite Cyclobenzaprine hydrochloride 10 MG Oral Tablet cyclobenzaprine (FLEXERIL) tablet 2.5 mg cyclobenzaprine (FLEXERIL) tablet 2.5 mg 09/26/2020 12 :23:12 PM EST 2.5 mg Oral completed 2.5 mg , Oral, Three Times Daily-PRN, Other, Starting 09/26/20 at 1223, For 1 day [facility] Medication administered onsite lactated ringers bolus 1,000 mL [id number] 09/26/2020 07:30:00 AM EST 1000 mL Intravenous completed 1,000 mL , Intravenous, Once, Tue09/26/20 at 0730, For 1 dose [facility] Medication administered onsite lidocaine (LIDODERM) 5 % patch 1 patch [id number] 09:00:00 AM EST 1 {patch} Transdermal aborted 1 patch, T ransdermal, Daily Standard, First dose (after last modification) on Mary 09/25/20 at 0900, For 29 doses
Apply to back 12 hours on - 12 hours off
Time to remove patch: 9:00 PM [facility] Medication administered onsite pantoprazole 40 MG Delayed Release Oral Tablet pantoprazole (PROTONIX) EC tablet 40 mg pantoprazole (PROTONIX) EC tablet 40 mg 09/25/2020 07:00:[address] 40 mg Oral aborted 40 mg, Ora l, Two times daily before breakfast and dinner, First dose (after last modification) on Mary 09/25/20 at 0700, For 44 doses
Do not crush or chew
[facility] Medication administered onsite lidocaine (XYLOCAINE) 2 % injection [id number] 09/25/2020 01:52:50 AM EST completed Code/Trauma Medicati on, Starting Tue09/25/20 at 0152 [facility] Medication administered onsite sodium chloride (preservative free) 0.9 % flush 3 mL 09/25/2020 01:00:00 AM EST 3 mL Intravenous aborted [Ord er 1 Start] Name: sodium chloride (preservative free) 0.9 % flush 3 mL Signed Summary: 3 mL, Intravenous, Every 8 hours Standard (3 times per day), First dose (after last modification) on Mary 09/25/20 at 0100, For 89 doses
Saline Lock. Flush Q8H and after each use to Saline Lock.
[Order 1 End] [Order 2 Start] Name: sodium chloride (preservative free) 0.9 % flush 3 mL Signed Summary: 3 mL, Intravenous, PRN, Line Care, Starting Tue09/24/20 at 2043, For 30 days
Saline Lock. Flush Q8H and after each use to Saline Lock.
[Order 2 End] [facility] Medication administered onsite morphine sulfate (PF) injection 2 mg [id number] 09/24/2020 11:45: 00 PM EST 2 mg Intravenous completed 2 mg, In travenous, Once, Tue09/24/20 at 2345, For 1 dose [facility] Medication administered onsite Calcium Chloride 0.0014 MEQ/ML / Potassi um Chloride 0.004 MEQ/ML / Sodium Chloride 0.103 MEQ/ML / Sodium Lactate 0.028 MEQ/ML Injectable Solution lactated ringers infusion lactated ringers infusion 09/24/2020 10:30:00 PM EST 150 mL/h Intravenous aborted at 150 m L/hr, Intravenous, Continuous, Starting Tue09/24/20 at 2230, For 2 days [facility] Medication administered onsite lactated ringers bolus 1,000 mL [id number] 09/24/2020 10:15:00 PM EST 1000 mL Intravenous completed 1,000 mL , Intravenous, Once, Tue09/24/20 at 2215, For 1 dose [facility] Medication administered onsite ondansetron (ZOFRAN) injection 4 mg [id number] 09/24/2020 10:00:3 4 PM EST 4 mg Intravenous aborted 4 mg, In travenous, Every 6 hours PRN, Nausea, Vomiting, Starting Tue09/24/20 at 2200, For 30 days [facility] Medication administered onsite Acetaminophen 325 MG Oral Tablet acetaminophen (TYLENO L) tablet 975 mg acetaminophen (TYLENOL) tablet 975 mg 09/24/2020 10:00:00 PM EST 97 5 mg Oral aborted 975 mg, Oral, E very 8 hours, First dose (after last modification) on Tue09/24/20 at 2200, For 29 doses
Maximum daily dose of acetaminophen is 3,000 mg from all sources in 24 hours.
[facility] Medication administered onsite protamine 50 mg in dextrose 5 % 50 mL IVPB 09/24/2020 09:4 5:00 PM EST 50 mg Intravenous completed 50 mg, Intrav enous, Administer over 20 Minutes, Once, Tue09/24/20 at 2145, For 1 dose [facility] Medication administered onsite morphine sulfate (PF) injection 2 mg [id number] 09/24/2020 09:37: 02 PM EST 2 mg Intravenous aborted 2 mg, In travenous, Every 4 hours PRN, Severe Pain (Pain Scale Score 7-10), Starting Tue09/24/20 at 2137, For 3 days [facility] Medication administered onsite gabapentin 300 MG Oral Capsule gabapentin (NEURONTIN) capsule 300 mg gabapentin (NEURONTIN) capsule 300 mg 09/24/2020 09:00:00 PM EST 300 mg Oral aborted 300 mg, Oral, Three Times D aily Standard, First dose (after last modification) on Tue09/24/20 at 2100, For 57 doses [facility] Medication administered onsite letrozole 2.5 MG Oral Tablet letrozole (FEMARA) tablet 2.5 mg letrozole (FEMARA) tablet 2.5 mg 09/24/2020 09:00:00 PM EST 2.5 mg Oral abor reema 2.5 mg, Oral, Daily Standard, First dose (after last modification) on Tue09/24/20 at 2100, For 23 doses [facility] Medication administered onsite Piperacillin 3000 MG / tazobactam 375 MG Injection piperacillin-tazobactam (ZOSYN) IVPB 3.375 g (premix) piperacillin-tazobactam (ZOSYN) IVPB 3.3 75 g (premix) 09/24/2020 09:00:00 PM EST 3.375 g Intravenous abo rted 3.375 g, Intravenous, Administer over 4 Hours, Every 8 hours, First dose (after last modification) on Tue09/24/20 at 2100, For 5 days
This specific formulation of piperacillin-tazobactam is compatible with Lactated Ringers.
[facility] Medication administered onsite Piperacillin 3000 MG / tazobactam 375 MG Injection piperacillin-tazobactam (ZOSYN) IVPB 3.375 g (premix) piperacillin-tazobactam (ZOSYN) IVPB 3.3 75 g (premix) 09/24/2020 09:00:00 PM EST 3.375 g Intravenous abo rted 3.375 g, Intravenous, Administer over 4 Hours, Every 8 hours, First dose on Tue09/24/20 at 2100, For 5 days
This specific formulation of piperacillin- tazobactam is compatible with Lactated Ringers.
[facility] Medication administered onsite iohexol (OMNIPAQUE) 300 MG/ML contrast injection 100 mL 1775 0809/24/2020 08:45:00 PM EST 100 mL Given by IV completed 100 mL, Given by IV, 1 TIME IMAGING, Tue09/24/20 at 2045, For 1 dose [facility] Medication administered onsite Calcium Chloride 0.0014 MEQ/ML / Potassi um Chloride 0.004 MEQ/ML / Sodium Chloride 0.103 MEQ/ML / Sodium Lactate 0.028 MEQ/ML Injectable Solution lactated ringers infusion lactated ringers infusion 09/24/2020 08:45:00 PM EST 150 mL/h Intravenous aborted at 150 m L/hr, Intravenous, Continuous, Starting Tue09/24/20 at 2044, For 2 days [facility] Medication administered onsite Ondansetron 4 MG Oral Tablet ondansetron (ZOFRAN) tabl et 4 mg ondansetron (ZOFRAN) tablet 4 mg 09/24/2020 08:44:26 PM EST 4 mg Oral aborted 4 mg, Oral, Every 8 hours PRN, Nausea, Vomiting, Starting Tue09/24/20 at 2043, For 6 days
Administer if able to tolerate PO.
[facility] Medication administered onsite Benzocaine 15 MG / Menthol 3.6 MG Oral L ozenge benzocaine-menthol (CEPACOL) 15- 3.6 MG per lozenge 1 lozenge benzocaine-menthol (CEPACOL) 15-3.6 MG p er lozenge 1 lozenge 09/24/2020 08:44:26 PM EST 1 {lozenge} Mouth/Throat aborted 1 lozenge, Mouth/Throat, Every 2 hours PRN, Sore Throat, Starting Tue09/24/20 at 2043, For 522 hours [facility] Medication administered onsite sodium chloride (preservative free) 0.9 % flush 10 mL 09/24/2020 08:44:25 PM EST 10 mL Intravenous aborted [Ord er 1 Start] Name: Midline Catheter Insertion Signed Summary: Routine, ONCE, Tue09/24/20 at 2044, For 1 occurrence
Reason for MIDLINE insertion: Access [Order 1 End] [Order 2 Start] Name: sodium chloride (preservative free) 0.9 % flush 10 mL Signed Summary: 10 mL, Intravenous, PRN, Line Care, Starting Tue09/24/20 at 2043, For 30 days
When catheter is not in use flush with 10mL Sodium Chloride. Every 12h. Reference CM P-05 Extended Dwell/Midline Peripheral Catheter.
[Order 2 End] [Order 3 Start] Name: sodium chloride (preservative free) 0.9 % flush 10 mL Signed Summary: 10 mL, Intravenous, PRN, Line Care, Starting Tue09/24/20 at 2043, For 30 days
Flush with 10 mL Sodium Chloride before and after infusions or blood sampling. Reference CM-05 Extended Dwell/Midline Peripheral Catheter.
[Order 3 End] [facility] Medication administered onsite lidocaine (XYLOCAINE) 1 % injection 5 mL [id number] 09/24/2020 08:44:25 PM EST 5 mL Subcutaneous aborted 5 m L, Subcutaneous, Once PRN, For MIDLINE Catheter insertion, Starting Tue09/24/20 at 2043, For 30 days [facility] Medication administered onsite iohexol (OMNIPAQUE) 240 MG/ML contrast 20 mL [id number] 04/2021 07:55:03 PM EST 20 mL Oral aborted 20 mL, Oral, Onc e PRN, Contrast, Per Protocol, Starting Tue09/24/20 at 1954, For [address] Scanner prior. mail caller to CT. Dilute in 500 mL liquid x1 etl application developer to CT scan - per protocol. Use "Contrast dose chart" link for dosing guidelines.
[facility] Medication administered onsite iohexol (OMNIPAQUE) 240 MG/ML contrast 20 mL [id number] 04/2021 07:55:03 PM EST 20 mL Oral aborted 20 mL, Oral, Onc e PRN, Contrast, Per Protocol, Starting Tue09/24/20 at 1954, For [address] to tell RN administration time of first dose. Dilute in 500 mL liquid x1 Now per protocol. Use "Contrast dose chart" link for dosing guidelines.
[facility] Medication administered onsite sodium chloride (preservative free) 0.9 % flush 3 mL 09/24/2020 05:00:00 PM EST 3 mL Intravenous aborted [Ord er 1 Start] Name: sodium chloride (preservative free) 0.9 % flush 3 mL Signed Summary: 3 mL, Intravenous, Every 8 hours Standard (3 times per day), First dose on Tue09/24/20 at 1700, For 30 da ys
Saline Lock. Flush Q8H and after each use to Saline Lock.
[Order 1 End] [Order 2 Start] Name: sodium chloride (preservative free) 0.9 % flush 3 mL Signed Summary: 3 mL, Intravenous, PRN, Line Care, Starting Tue09/24/20 at 1016, For 30 days
Saline Lock. Flush Q8H and after each use to Saline Lock.
[Order 2 End] [facility] Medication administered onsite iohexol (OMNIPAQUE) 350 MG/ML contrast injection 100 mL [id number] 09/24/2020 04:16:08 PM EST 100 mL Given by IV aborted 100 mL, Given by IV, IMG once PRN, Other, Starting Tue09/24/20 at 1616, For 1 day [facility] Medication administered onsite lidocaine (LIDODERM) 5 % patch 1 patch [id number] 03:30:00 PM EST 1 {patch} Transdermal aborted 1 patch, T ransdermal, Daily Standard, First dose on Tue09/24/20 at 1530, For 30 days
Apply to back 12 hours on - 12 hours off
[facility] Medication administered onsite sodium chloride (preservative free) 0.9 % flush 10 mL 09/24/2020 01:18:12 PM EST 10 mL Intravenous aborted [Ord er 1 Start] Name: Midline Catheter Insertion Signed Summary: Routine, ONCE, Tue09/24/20 at 1319, For 1 occurrence
Reason for MIDLINE insertion: Access [Order 1 End] [Order 2 Start] Name: sodium chloride (preservative free) 0.9 % flush 10 mL Signed Summary: 10 mL, Intravenous, PRN, Line Care, Starting Tue09/24/20 at 1318, For 30 days
When catheter is not in use flush with 10mL Sodium Chloride. Every 12h. Reference CM P-05 Extended Dwell/Midline Peripheral Catheter.
[Order 2 End] [Order 3 Start] Name: sodium chloride (preservative free) 0.9 % flush 10 mL Signed Summary: 10 mL, Intravenous, PRN, Line Care, Starting Tue09/24/20 at 1318, For 30 days
Flush with 10 mL Sodium Chloride before and after infusions or blood sampling. Reference CM-05 Extended Dwell/Midline Peripheral Catheter.
[Order 3 End] [facility] Medication administered onsite lidocaine (XYLOCAINE) 1 % injection 5 mL [id number] 09/24/2020 01:18:12 PM EST 5 mL Subcutaneous aborted 5 m L, Subcutaneous, Once PRN, For MIDLINE Catheter insertion, Starting Tue09/24/20 at 1318, For 30 days [facility] Medication administered onsite Acetaminophen 325 MG Oral Tablet acetaminophen (TYLENO L) tablet 975 mg acetaminophen (TYLENOL) tablet 975 mg 09/24/2020 01:00:00 PM EST 97 5 mg Oral aborted 975 mg, Oral, E very 8 hours, First dose on Tue09/24/20 at 1300, For 10 days
Maximum daily dose of acetaminophen is 3,000 mg from all sources in 24 hours.
[facility] Medication administered onsite Cyclobenzaprine hydrochloride 5 MG Oral Tablet cyclobenzaprine (FLEXERIL) tablet 2.5 mg cyclobenzaprine (FLEXERIL) tablet 2.5 mg 09/24/2020 12:56:24 PM EST 2.5 mg Oral aborted 2.5 mg, Or al, Three Times Daily-PRN, Other, Starting Tue09/24/20 at 1256, For 8 hours [facility] Medication administered onsite Ibuprofen 200 MG Oral Tablet ibuprofen (MOTRIN) tablet 200 mg ibuprofen (MOTRIN) tablet 200 mg 09/23/2020 05:51:59 PM EST 200 mg Oral abor reema 200 mg, Oral, Every 6 hours PRN, Mild Pain (Pain Scale Score 1-3), Moderate Pain (Pain Scale Score 4-6), Starting Tue09/23/20 at 1751, For 30 days
Take with food.
[facility] Medication administered onsite ondansetron (ZOFRAN) injection 4 mg 09/23/2020 05:51:43 PM EST 4 mg Intravenous aborted [Order 1 Star t] Name: ondansetron (ZOFRAN) injection 4 mg Signed Summary: 4 mg, Intravenous, Every 8 hours PRN, Nausea, Vomiting, Starting Tue09/23/20 at 1751, For 7 days
Administer if unable to tolerate PO.
[Order 1 End] [Order 2 Start] Name: ondansetron (ZOFRAN) tablet 4 mg Signed Summary: 4 mg, Oral, Every 8 hours PRN, Nausea, Vomiting, Starting Tue09/23/20 at 1751, For 7 days
Administer if able to tolerate PO.
[Order 2 End] [facility] Medication administered onsite oxyCODONE (ROXICODONE) immediate release tablet 10 mg 09/23/2020 02:40:55 PM EST 10 mg Oral aborted [Order 1 Start] Name: oxyCODONE (ROXICODONE) immediate release tablet 10 mg Signed Summary: 10 mg, Oral, Every 4 hours PRN, Severe Pain (Pain Scale Score 7-10), Starting Tue09/23/20 at 1440, For 72 hours
Oxycodone immediate release is limited to 10 mg per dose. Higher doses ([facility] only) require Pain Service consultation and approval.
[Order 1 End] [Order 2 Start] Name: oxyCODONE (ROXICODONE) immediate release tablet 5 mg Signed Summary: 5 mg, Oral, Every 4 hours PRN, Moderate Pain (Pain Scale Score 4-6), Starting Tue09/23/20 at 1440, For 72 hours
Oxycodone immediate release is limited to 10 mg per dose. Higher doses ([facility] only) require Pain Service consultation and approval.
[Order 2 End] [facility] Medication administered onsite Ciprofloxacin 250 MG Oral Tablet ciprofloxacin (CIPRO) tablet 250 mg ciprofloxacin (CIPRO) tablet 250 mg 09/22/2020 09:00:00 PM EST 250 mg Oral aborted 250 mg, Oral, Ev mello 12 hours Standard (2 times per day), First dose (after last modification) on Tue09/22/20 at 2100, For 9 doses
Administer 2 hours before or 4 hours after oral magnesium, calcium, iron, and sucralfate.
Discouraged Uses ([facility] only): -Treatment of community-acquired intra-abdominal infection (moxifloxacin preferred in severe PCN allergy) - Empiric treatment of UTI without allergies (poor E. coli coverage)
[facility] Medication administered onsite 1 ML Enoxaparin sodium 100 MG/ML Prefill ed Syringe enoxaparin sodium (LOVENOX) injection 100 mg enoxaparin sodium (LOVENOX) injection 100 mg 09:00:00 PM EST 100 mg Subcutaneous aborted 100 mg, Subcutaneous, Every 12 hours Standard (2 times per day), First dose (after last modification) on Tue09/22/20 at 2100, For 53 doses [facility] Medication administered onsite letrozole 2.5 MG Oral Tablet letrozole (FEMARA) tablet 2.5 mg letrozole (FEMARA) tablet 2.5 mg 09/22/2020 09:00:00 PM EST 2.5 mg Oral abor reema 2.5 mg, Oral, Daily Standard, First dose (after last modification) on Tue09/22/20 at 2100, For 25 doses [facility] Medication administered onsite Metronidazole 250 MG Oral Tablet metroNIDAZOLE (FLAGYL ) tablet 500 mg metroNIDAZOLE (FLAGYL) tablet 500 mg 09/22/2020 05:00:00 PM EST 500 m g Oral aborted 500 mg, Oral, Ev mello 8 hours Standard (3 times per day), First dose (after last modification) on Tue09/22/20 at 1700, For 14 doses
Avoid alcohol products
[facility] Medication administered onsite pantoprazole 40 MG Delayed Release Oral Tablet pantoprazole (PROTONIX) EC tablet 40 mg pantoprazole (PROTONIX) EC tablet 40 mg 09/22/2020 05:00:[address] 40 mg Oral aborted 40 mg, Ora l, Two times daily before breakfast and dinner, First dose (after last modification) on Tue09/22/20 at 1700, For 49 doses
Do not crush or chew
[facility] Medication administered onsite gabapentin 300 MG Oral Capsule gabapentin (NEURONTIN) capsule 300 mg gabapentin (NEURONTIN) capsule 300 mg 09/22/2020 05:00:00 PM EST 300 mg Oral aborted 300 mg, Oral, Three Times D aily Standard, First dose (after last modification) on Tue09/22/20 at 1700, For 64 doses [facility] Medication administered onsite Melatonin 5 MG Oral Tablet melatonin tablet 10 mg melatonin tablet 10 mg 09/22/2020 04:11:31 PM EST 10 mg Oral completed 10 mg, Oral, Nightly PRN, Sleep, Starting Tue09/22/20 at 1611, For 10 hours [facility] Medication administered onsite Benzocaine 15 MG / Menthol 3.6 MG Oral L ozenge benzocaine-menthol (CEPACOL) 15- 3.6 MG per lozenge 1 lozenge benzocaine-menthol (CEPACOL) 15-3.6 MG p er lozenge 1 lozenge 09/22/2020 03:59:11 PM EST 1 {lozenge} Mouth/Throat aborted 1 lozenge, Mouth/Throat, Every 2 hours PRN, Sore Throat, Starting Tue09/22/20 at 1559, For 575 hours [facility] Medication administered onsite Ciprofloxacin 250 MG Oral Tablet ciprofloxacin (CIPRO) tablet 250 mg ciprofloxacin (CIPRO) tablet 250 mg 09/22/2020 09:00:00 AM EST 250 mg Oral aborted 250 mg, Oral, Ev mello 12 hours Standard (2 times per day), First dose on Tue09/22/20 at 0900, For 5 days
Administer 2 hours before or 4 hours after oral magnesium, calcium, iron, and sucralfate.
Discouraged Uses ( only): -Treatment of community-acquired intra-abdominal infection (moxifloxacin preferred in severe PCN allergy) -Empiric treatment of UTI without allergies (poor E. coli coverage)
[facility] Medication administered onsite Metronidazole 250 MG Oral Tablet metroNIDAZOLE (FLAGYL ) tablet 500 mg metroNIDAZOLE (FLAGYL) tablet 500 mg 09/22/2020 09:00:00 AM EST 500 m g Oral aborted 500 mg, Oral, Ev mello 8 hours Standard (3 times per day), First dose on Tue09/22/20 at 0900, For 5 days
Avoid alcohol products
[facility] Medication administered onsite 1 ML Enoxaparin sodium 100 MG/ML Prefill ed Syringe Enoxaparin Sodium 100 MG/ML Subcutaneous Solution (LOVENOX) Enoxaparin Sodium 100 MG/ML Subcutaneous Solution (LOVENOX) 09/22/2020 12:00:00 AM EST 100 mg Subcutaneous aborted Inject 1 mL into the skin every 12 (twel ve) hours [facility] gabapentin 300 MG Oral Capsule Gabapentin 300 MG Oral Capsule (NEURONTIN) Gabapentin 300 MG Oral Capsule (NEURONTIN) 09/22/2020 12:00:00 AM EST 300 mg Oral aborted Take 1 capsule by [facility] Three times daily [facility] Metronidazole 500 MG Oral Tablet metroNIDAZOLE 500 MG Oral Tablet (FLAGYL) metroNIDAZOLE 500 MG Oral Tablet (FLAGYL) 09/22/2020 12:00:00 AM EST 500 mg Oral aborted [facility] (eight) hours for 5 days [facility] Oxycodone Hydrochloride 5 MG Oral Tablet oxyCODONE HCl 5 MG Oral Tablet (ROXICODONE) oxyCODONE HCl 5 MG Oral Tablet (ROXICODONE) 09/22/2020 12:00:00 AM EST 10 mg Oral aborted Take 2 t ablets by mouth every 4 (four) hours as needed for up to 3 days, Max Daily Dose: 60 mg [facility] Acetaminophen 325 MG Oral Tablet Acetaminophen 325 MG Oral T ablet 09/22/2020 12:00:00 AM EST 975 mg Oral aborted Take 3 tablets by mouth every 8 (eight) hours for 10 days [facility] Ciprofloxacin 250 MG Oral Tablet Ciprofloxacin HCl 250 MG Oral Tablet (CIPRO) Ciprofloxacin HCl 250 MG Oral Tablet (CIPRO) 09/22/2020 12:00:00 AM EST 250 mg Oral aborted Take 1 tablet by mouth e very 12 (twelve) hours for 5 days [facility] iohexol (OMNIPAQUE) 300 MG/ML contrast injection 100 mL 1775 0809/21/2020 05:15:00 PM EST 100 mL Given by IV completed 100 mL, Given by IV, 1 TIME IMAGING, [employer] [place] 09/21/20 at 1715, For 1 dose [facility] Medication administered onsite iohexol (OMNIPAQUE) 240 MG/ML contrast 20 mL [id number] 12:19:28 PM EST 20 mL Oral completed 20 mL, Oral, O nce PRN, Contrast, Per Protocol, Starting 09/21/20 at 1219, For [address] to tell RN administration time of first dose. Dilute in 500 mL liquid x1 Now per protocol. Use "Contrast dose chart" link for dosing guidelines.
[facility] Medication administered onsite iohexol (OMNIPAQUE) 240 MG/ML contrast 20 mL [id number] 12:19:28 PM EST 20 mL Oral completed 20 mL, Oral, O nce PRN, Contrast, Per Protocol, Starting 09/21/20 at 1219, For [address] Scanner prior. mail caller to CT. Dilute in 500 mL liquid x1 etl application developer to CT scan - per protocol. Use "Contrast dose chart" link for dosing guidelines.
[facility] Medication administered onsite potassium chloride (K-DUR) dissolvable tablet 40 mEq [id number] 99-09/20/2020 09:00:00 AM EST 40 meq Oral completed 40 mEq, Oral, 2 Times Daily, First dose (after last reorder) on Tue09/20/20 at 0900, For 1 day
May be dissolved in water for patients with a G-Tube or unable to swallow. If concern for clogging G-Tube, may contact Pharmacy to switch formulation to a powder packet.
[facility] Medication administered onsite 1 ML Enoxaparin sodium 100 MG/ML Prefill ed Syringe enoxaparin sodium (LOVENOX) injection 100 mg enoxaparin sodium (LOVENOX) injection 100 mg 09:00:00 AM EST 100 mg Subcutaneous aborted 100 mg, Subcutaneous, Every 12 hours Standard (2 times per day), First dose (after last modification) on Tue09/19/20 at 0900, For 30 days [facility] Medication administered onsite potassium chloride (K-DUR) dissolvable tablet 40 mEq [id number] 99-09/19/2020 09:00:00 AM EST 40 meq Oral completed 40 mEq, Oral, 2 Times Daily, First dose on Tue09/19/20 at 0900, For 1 day
May be dissolved in water for patients with a G-Tube or unable to swallow. If concern for clogging G-Tube, may contact Pharmacy to switch formulation to a powder packet.
[facility] Medication administered onsite potassium phosphate 155 MG / Sodium Phos phate, Dibasic 852 MG / Sodium Phosphate, Monobasic 130 MG Oral Tablet phosphorus (K PHOS NEUTRAL) tablet 250 mg phosphorus (K PHOS NEUTRAL) tablet 250 mg 09/18/2020 09:00:00 AM EST 250 mg Oral completed 250 mg, Or al, 2 Times Daily, First dose on Mary 09/18/20 at 0900, For 1 day
Each 250 mg tablet contains: elemental phosphorous 250 mg (8 mmol), sodium 298 mg (12.9 mEq), and potassium 45 mg (1.1 mEq)
[facility] Medication administered onsite letrozole 2.5 MG Oral Tablet letrozole (FEMARA) tablet 2.5 mg letrozole (FEMARA) tablet 2.5 mg 09/17/2020 09:30:00 PM EST 2.5 mg Oral abor reema 2.5 mg, Oral, Daily Standard, First dose on Tue09/17/20 at 2130, For 30 days [facility] Medication administered onsite Potassium Chloride 0.1 MEQ/ML Injectable Solution potassium chloride 10 mEq in 100 mL IVPB (premix) potassium chloride 10 mEq in 100 mL IVPB (premix) 09/17/2020 05:00:00 PM EST 10 meq Intravenous completed 10 mEq, Intravenous, Every 1 hour, First dose on Tue09/17/20 at 1700, For 4 doses [facility] Medication administered onsite gabapentin 300 MG Oral Capsule gabapentin (NEURONTIN) capsule 300 mg gabapentin (NEURONTIN) capsule 300 mg 09/17/2020 05:00:00 PM EST 300 mg Oral aborted 300 mg, Oral, Three Times D aily Standard, First dose (after last modification) on Tue09/17/20 at 1700, For 79 doses [facility] Medication administered onsite Acetaminophen 325 MG Oral Tablet acetaminophen (TYLENO L) tablet 975 mg acetaminophen (TYLENOL) tablet 975 mg 09/17/2020 01:30:00 PM EST 97 5 mg Oral aborted 975 mg, Oral, E very 8 hours, First dose on Tue09/17/20 at 1330, For 30 days
Maximum daily dose of acetaminophen is 3,000 mg from all sources in 24 hours.
[facility] Medication administered onsite oxyCODONE (ROXICODONE) immediate release tablet 10 mg 09/17/2020 07:41:47 AM EST 10 mg Oral aborted [Order 1 Start] Name: oxyCODONE (ROXICODONE) immediate release tablet 10 mg Signed Summary: 10 mg, Oral, Every 4 hours PRN, Severe Pain (Pain Scale Score 7-10), Starting Tue09/17/20 at 0741, For 136 hours
Oxycodone immediate release is limited to 10 mg per dose. Higher doses ( only) require Pain Service consultation and approval.
[Order 1 End] [Order 2 Start] Name: oxyCODONE (ROXICODONE) immediate release tablet 5 mg Signed Summary: 5 mg, Oral, Every 4 hours PRN, Moderate Pain (Pain Scale Score 4-6), Starting Tue09/17/20 at 0741, For 136 hours
Oxycodone immediate release is limited to 10 mg per dose. Higher doses ( only) require Pain Service consultation and approval.
[Order 2 End] [facility] Medication administered onsite pantoprazole 40 MG Delayed Release Oral Tablet pantoprazole (PROTONIX) EC tablet 40 mg pantoprazole (PROTONIX) EC tablet 40 mg 09/17/2020 07:30:[address] 40 mg Oral aborted 40 mg, Ora l, Two times daily before breakfast and dinner, First dose on Tue09/17/20 at 0730, For 30 days
Do not crush or chew
[facility] Medication administered onsite Potassium Chloride 0.1 MEQ/ML Injectable Solution potassium chloride 10 mEq in 100 mL IVPB (premix) potassium chloride 10 mEq in 100 mL IVPB (premix) 09/17/2020 07:00:00 AM EST 10 meq Intravenous completed 10 mEq, Intravenous, Administer over 60 Minutes, Every 1 hour, First dose on Tue09/17/20 at 0700, For 4 doses [facility] Medication administered onsite lactated ringers bolus 1,000 mL [id number] 09/16/2020 03:30:00 PM EST 1000 mL Intravenous completed 1,000 mL , Intravenous, Once, Tue09/16/20 at 1530, For 1 dose [facility] Medication administered onsite Benzocaine 15 MG / Menthol 3.6 MG Oral L ozenge benzocaine-menthol (CEPACOL) 15- 3.6 MG per lozenge 1 lozenge benzocaine-menthol (CEPACOL) 15-3.6 MG p er lozenge 1 lozenge 09/16/2020 01:29:52 PM EST 1 {lozenge} Mouth/Throat aborted 1 lozenge, Mouth/Throat, Every 2 hours PRN, Sore Throat, Starting Tue09/16/20 at 1329, For 30 days [facility] Medication administered onsite lactated ringers bolus 1,000 mL [id number] 09/16/2020 10:00:00 AM EST 1000 mL Intravenous completed 1,000 mL , Intravenous, Once, Tue09/16/20 at 1000, For 1 dose [facility] Medication administered onsite melatonin sublingual tablet 10 mg [id number] 09/16/2020 01:13:17 AM EST 10 mg Oral aborted 10 mg, Ora l, Nightly PRN, Sleep, Starting Tue09/16/20 at 0113, For 7 days [facility] Medication administered onsite Acetaminophen 10 MG/ML Injectable Soluti on acetaminophen (OFIRMEV) infusion 1,000 mg acetaminophen (OFIRMEV) infusion 1,000 mg 09/15/2020 10:30:00 PM EST 1000 mg Intravenous completed 1,000 mg , Intravenous, Administer over 15 Minutes, Every 8 hours, First dose on Tue09/15/20 at 2230, For 5 doses
Maximum daily dose of acetaminophen from all sources 3,000 mg daily.
[facility] Medication administered onsite fentaNYL (SUBLIMAZE) (PF) injection 25 mcg [id number] 09/15/2020 09:18:18 PM EST 25 ug Intravenous aborted 25 m cg, Intravenous, Every 5 min PRN, Severe Pain (Pain Scale Score 7-10), Starting Tue09/15/20 at 2118, For 10 doses, Recovery [facility] Medication administered onsite iohexol (OMNIPAQUE) 300 MG/ML contrast injection 100 mL [id number] 09/15/2020 03:45:00 PM EST 100 mL Given by IV completed 100 mL, Given by IV, 1 TIME IMAGING, Tue09/15/20 at 1545, For 1 dose [facility] Medication administered onsite pantoprazole 40 MG Delayed Release Oral Tablet pantoprazole (PROTONIX) EC tablet 40 mg pantoprazole (PROTONIX) EC tablet 40 mg 09/15/2020 09:00:[address] 40 mg Oral aborted 40 mg, Ora l, 2 Times Daily, First dose on Tue09/15/20 at 0900, For 30 days
Do not crush or chew
[facility] Medication administered onsite iohexol (OMNIPAQUE) 240 MG/ML contrast 20 mL [id number] 07/2020 08:25:07 AM EST 20 mL Oral aborted 20 mL, Oral, Onc e PRN, Contrast, Per Protocol, Starting 09/15/20 at 0825, For [address] Scanner prior. mail caller to CT. Dilute in 500 mL liquid x1 etl application developer to CT scan - per protocol. Use "Contrast dose chart" link for dosing guidelines.
[facility] Medication administered onsite iohexol (OMNIPAQUE) 240 MG/ML contrast 20 mL [id number] 07/2020 08:25:07 AM EST 20 mL Oral aborted 20 mL, Oral, Onc e PRN, Contrast, Per Protocol, Starting 09/15/20 at 0825, For [address] to tell RN administration time of first dose. Dilute in 500 mL liquid x1 Now per protocol. Use "Contrast dose chart" link for dosing guidelines.
[facility] Medication administered onsite letrozole 2.5 MG Oral Tablet letrozole (FEMARA) tablet 2.5 mg letrozole (FEMARA) tablet 2.5 mg 09/14/2020 10:00:00 PM EST 2.5 mg Oral abor reema 2.5 mg, Oral, Nightly, First dose on 09/14/20 at 2200, For 30 days [facility] Medication administered onsite 0.4 ML Enoxaparin sodium 100 MG/ML Prefi lled Syringe enoxaparin sodium (LOVENOX) injection 40 mg enoxaparin sodium (LOVENOX) injection 40 mg 09/14/2020 09:00:00 AM EST 40 mg Subcutaneous aborted 40 mg, Subcutaneous, Daily Standard, First dose on 09/14/20 at 0900, For 30 days [facility] Medication administered onsite morphine sulfate (PF) injection 2 mg 09/14/2020 04:49: 02 AM EST 2 mg Intravenous aborted 2 mg, In travenous, Every 4 hours PRN, breakthrough pain, Starting 09/14/20 at 0449, For 71 hours [facility] Medication administered onsite morphine sulfate (PF) injection 2 mg 09/14/2020 04:31: 18 AM EST 2 mg Intravenous aborted 2 mg, In travenous, Every 4 hours PRN, Severe Pain (Pain Scale Score 7-10), breakthrough pain, Starting 09/14/20 at 0431, For 3 days [facility] Medication administered onsite Promethazine Hydrochloride 25 MG Oral Ta blet promethazine (PHENERGAN) tablet 25 mg promethazine (PHENERGAN) tablet 25 mg 09/14/2020 04:00:00 AM EST 25 mg Oral completed 25 mg, Oral, Once, S un 09/14/20 at 0400, For 1 dose [facility] Medication administered onsite Methocarbamol 500 MG Oral Tablet methocarbamol (ROBAXI N) tablet 500 mg methocarbamol (ROBAXIN) tablet 500 mg 09/14/2020 02:45:00 AM EST 50 0 mg Oral aborted 500 mg, Oral, F our Times Daily Standard, First dose on 09/14/20 at 0245, For 30 days [facility] Medication administered onsite Piperacillin 3000 MG / tazobactam 375 MG Injection piperacillin-tazobactam (ZOSYN) IVPB 3.375 g (premix) piperacillin-tazobactam (ZOSYN) IVPB 3.3 75 g (premix) 09/14/2020 02:45:00 AM EST 3.375 g Intravenous abo rted 3.375 g, Intravenous, Administer over 4 Hours, Every 8 hours, First dose on 09/14/20 at 0245, For 28 doses
This specific formulation of piperacillin- tazobactam is compatible with Lactated Ringers.
[facility] Medication administered onsite gabapentin 100 MG Oral Capsule gabapentin (NEURONTIN) capsule 100 mg gabapentin (NEURONTIN) capsule 100 mg 09/14/2020 02:45:00 AM EST 100 mg Oral aborted 100 mg, Oral, Three Times D aily Standard, First dose on 09/14/20 at 0245, For 14 doses [facility] Medication administered onsite Calcium Chloride 0.0014 MEQ/ML / Potassi um Chloride 0.004 MEQ/ML / Sodium Chloride 0.103 MEQ/ML / Sodium Lactate 0.028 MEQ/ML Injectable Solution lactated ringers infusion lactated ringers infusion 09/14/2020 02:45:00 AM EST 100 mL/h Intravenous aborted at 100 m L/hr, Intravenous, Continuous, Starting 09/14/20 at 0245, For 30 days [facility] Medication administered onsite Acetaminophen 325 MG Oral Tablet acetaminophen (TYLENO L) tablet 650 mg acetaminophen (TYLENOL) tablet 650 mg 09/14/2020 02:32:10 AM EST 65 0 mg Oral aborted 650 mg, Oral, E very 6 hours PRN, Mild Pain (Pain Scale Score 1- 3), Starting 09/14/20 at 0232, For 30 days
Maximum daily dose of acetaminophen is 3,000 mg from all sources in 24 hours.
[facility] Medication administered onsite 1 ML Ketorolac Tromethamine 15 MG/ML [facility] ketorolac (TORADOL) 15 MG/ML injection 15 mg ketorolac (TORADOL) 15 MG/ML injection 15 mg 02:31:09 AM EST 15 mg Intravenous aborted 15 m g, Intravenous, Every 6 hours PRN, Moderate Pain (Pain Scale Score 4-6), Starting [facility] 09/14/20 at 0231, For 3 doses [facility] Medication administered onsite ondansetron (ZOFRAN) injection 4 mg [id number] 09/14/2020 02:26:0 6 AM EST 4 mg Intravenous aborted 4 mg, In travenous, Every 8 hours PRN, Nausea, Vomiting, Starting [facility] 09/14/20 at 0226, For 30 days [facility] Medication administered onsite ondansetron (ZOFRAN) injection 4 mg [id number] 09/14/2020 02:00:0 0 AM EST 4 mg Given by IV completed 4 mg, Gi kwasi by IV, Once, [facility] 09/14/20 at 0200, For 1 dose [facility] Medication administered onsite letrozole 2.5 MG Oral Tablet Letrozole 2.5 MG Oral Tab let (FEMARA) Letrozole 2.5 MG Oral Tablet (FEMARA) 09/04/2020 12:00:00 AM EST 2.5 mg Oral active Take 2.5 mg by mouth nightly [facility] Amoxicillin 875 MG / Clavulanate 125 MG Oral Tablet Amoxicillin-Pot Clavulanate 875-125 MG Amoxicillin-Pot Clavulanate 875-125 MG 09/01/2020 12:00:00 AM ES T 1.0 {tablet} active Amoxicillin-Pot Cla vulanate 875-125 MG eCW1 ([facility]) 875-125 mg 09/01/2020 12:00:00 AM EST tablet 28 TAKE ONE TABLET BY MOUTH EVERY 12 HOURS WITH FOOD FOR 14 DAYS TAKE ONE TABLET BY MOUTH EVERY 12 HOURS WITH FOOD FOR 14 DAYS SOLD: 09/03/2020 [facility] pantoprazole 40 MG Delayed Release Oral Tablet PANTOPRAZOLE SODIUM 08/07/2020 12:00:00 AM EST tablet,delayed release (DR/EC) 30 T DANUTA ONE TABLET BY MOUTH TWO TIMES A DAY TAKE ONE TABLET BY MOUTH TWO TIMES A DAY SOLD: 02/24/2021 [facility] pantoprazole 40 MG Delayed Release Oral Tablet PANTOPRAZOLE SODIUM 08/07/2020 12:00:00 AM EST tablet,delayed release (DR/EC) 60 T DANUTA ONE TABLET BY MOUTH TWO TIMES A DAY TAKE ONE TABLET BY MOUTH TWO TIMES A DAY SOLD: 08/08/2020 [facility] pantoprazole 40 MG Delayed Release Oral Tablet Pantoprazole Sodium 40 MG Oral Tablet Delayed Release (PROTONIX) Pantoprazole Sodium 40 MG Oral Tablet De layed Release (PROTONIX) 08/07/2020 12:00:00 AM EST 40 mg Oral active Take 40 mg by mouth Two Times Daily [facility] pantoprazole 40 MG Delayed Release Oral Tablet PANTOPRAZOLE SODIUM 08/07/2020 12:00:00 AM EST tablet,delayed release (DR/EC) 30 T DANUTA ONE TABLET BY MOUTH TWO TIMES A DAY TAKE ONE TABLET BY MOUTH TWO TIMES A DAY SOLD: 10/15/2020 [facility] pantoprazole 40 MG Delayed Release Oral Tablet PANTOPRAZOLE SODIUM 08/07/2020 12:00:00 AM EST tablet,delayed release (DR/EC) 30 T DANUTA ONE TABLET BY MOUTH TWO TIMES A DAY TAKE ONE TABLET BY MOUTH TWO TIMES A DAY SOLD: 12/09/2020 [facility] pantoprazole 40 MG Delayed Release Oral Tablet PANTOPRAZOLE SODIUM 08/07/2020 12:00:00 AM EST tablet,delayed release (DR/EC) 30 T DANUTA ONE TABLET BY MOUTH TWO TIMES A DAY TAKE ONE TABLET BY MOUTH TWO TIMES A DAY SOLD: 10/30/2020 [facility] pantoprazole 40 MG Delayed Release Oral Tablet PANTOPRAZOLE SODIUM 08/07/2020 12:00:00 AM EST tablet,delayed release (DR/EC) 30 T DANUTA ONE TABLET BY MOUTH TWO TIMES A DAY TAKE ONE TABLET BY MOUTH TWO TIMES A DAY SOLD: 11/22/2020 [facility] pantoprazole 40 MG Delayed Release Oral Tablet PANTOPRAZOLE SODIUM 08/07/2020 12:00:00 AM EST tablet,delayed release (DR/EC) 30 T DANUTA ONE TABLET BY MOUTH TWO TIMES A DAY TAKE ONE TABLET BY MOUTH TWO TIMES A DAY SOLD: 01/13/2021 [facility] pantoprazole 40 MG Delayed Release Oral Tablet PANTOPRAZOLE SODIUM 08/07/2020 12:00:00 AM EST tablet,delayed release (DR/EC) 30 T DANUTA ONE TABLET BY MOUTH TWO TIMES A DAY TAKE ONE TABLET BY MOUTH TWO TIMES A DAY SOLD: 12/24/2020 [facility] pantoprazole 40 MG Delayed Release Oral Tablet [Proton ix] Protonix 40 MG Protonix 40 MG 08/06/2020 12:00:00 AM EST 1.0 {tablet} active Protonix 40 MG eCW1 ([facility]) pantoprazole 40 MG Delayed Release Oral Tablet [Proton ix] Protonix 40 MG Protonix 40 MG 08/06/2020 12:00:00 AM EST 1.0 {tablet} active Protonix 40 MG eCW1 ([facility]) pantoprazole 40 MG Delayed Release Oral Tablet [Proton ix] Protonix 40 MG Protonix 40 MG 08/06/2020 12:00:00 AM EST 1.0 {tablet} active Protonix 40 MG eCW1 ([facility]) pantoprazole 40 MG Delayed Release Oral Tablet [Proton ix] Protonix 40 MG Protonix 40 MG 08/06/2020 12:00:00 AM EST 1.0 {tablet} active Protonix 40 MG eCW1 ([facility]) pantoprazole 40 MG Delayed Release Oral Tablet [Proton ix] Protonix 40 MG Protonix 40 MG 08/06/2020 12:00:00 AM EST 1.0 {tablet} active Protonix 40 MG eCW1 ([facility]) pantoprazole 40 MG Delayed Release Oral Tablet [Proton ix] Protonix 40 MG Protonix 40 MG 08/06/2020 12:00:00 AM EST 1.0 {tablet} active Protonix 40 MG eCW1 ([facility]) pantoprazole 40 MG Delayed Release Oral Tablet [Proton ix] Protonix 40 MG Protonix 40 MG 08/06/2020 12:00:00 AM EST 1.0 {tablet} active Protonix 40 MG eCW1 ([facility]) pantoprazole 40 MG Delayed Release Oral Tablet [Proton ix] Protonix 40 MG Protonix 40 MG 08/06/2020 12:00:00 AM EST 1.0 {tablet} active Protonix 40 MG eCW1 ([facility]) pantoprazole 40 MG Delayed Release Oral Tablet [Proton ix] Protonix 40 MG Protonix 40 MG 08/06/2020 12:00:00 AM EST 1.0 {tablet} active Protonix 40 MG eCW1 ([facility]) pantoprazole 40 MG Delayed Release Oral Tablet [Proton ix] Protonix 40 MG Protonix 40 MG 08/06/2020 12:00:00 AM EST 1.0 {tablet} active Protonix 40 MG eCW1 ([facility]) pantoprazole 40 MG Delayed Release Oral Tablet [Proton ix] Protonix 40 MG Protonix 40 MG 08/06/2020 12:00:00 AM EST 1.0 {tablet} active Protonix 40 MG eCW1 ([facility]) pantoprazole 40 MG Delayed Release Oral Tablet [Proton ix] Protonix 40 MG Protonix 40 MG 08/06/2020 12:00:00 AM EST 1.0 {tablet} active Protonix 40 MG eCW1 ([facility]) pantoprazole 40 MG Delayed Release Oral Tablet [Proton ix] Protonix 40 MG Protonix 40 MG 08/06/2020 12:00:00 AM EST 1.0 {tablet} active Protonix 40 MG eCW1 ([facility]) pantoprazole 40 MG Delayed Release Oral Tablet [Proton ix] Protonix 40 MG Protonix 40 MG 08/06/2020 12:00:00 AM EST 1.0 {tablet} active Protonix 40 MG eCW1 ([facility]) pantoprazole 40 MG Delayed Release Oral Tablet [Proton ix] Protonix 40 MG Protonix 40 MG 08/06/2020 12:00:00 AM EST 1.0 {tablet} active Protonix 40 MG eCW1 ([facility]) pantoprazole 40 MG Delayed Release Oral Tablet [Proton ix] Protonix 40 MG Protonix 40 MG 08/06/2020 12:00:00 AM EST 1.0 {tablet} active Protonix 40 MG eCW1 ([facility]) Metronidazole 500 MG Oral Tablet METRONIDAZOLE 07/09/2020 12:0 0:00 AM EST tablet 42 TAKE ONE TABLET BY MOUTH EVERY 8 HOURS FOR 14 DAYS TAKE ONE TABLET BY MOUTH EVERY 8 HOURS FOR 14 DAYS SOLD: 07/09/2020 [facility] 500 mg 07/09/2020 12:00:00 AM EST tablet 28 TAKE ONE TABLET BY MOUTH EVERY 12 HOURS FOR 14 DAYS TAKE ONE TABLET BY MOUTH EVERY 12 HOURS FOR 14 DAYS SO LD: 07/09/2020 [facility] Ciprofloxacin 500 MG Oral Tablet [Cipro] Cipro 500 MG Cipro 500 MG 06/04/2020 12:00:00 AM EST 1.0 {tablet} active Ci pro 500 MG eCW1 ([facility]) Metronidazole 500 MG Oral Tablet [Flagyl] Flagyl 500 MG Flag yl 500 MG 06/04/2020 12:00:00 AM EST 1.0 {tablet} active F lagyl 500 MG eCW1 ([facility]) 500 mg 06/04/2020 12:00:00 AM EST tablet 20 TAKE ONE TABLET BY MOUTH EVERY 12 HOURS FOR 10 DAYS TAKE ONE TABLET BY MOUTH EVERY 12 HOURS FOR 10 DAYS SO LD: 06/04/2020 [facility] Metronidazole 500 MG Oral Tablet METRONIDAZOLE 06/04/2020 12:0 0:00 AM EST tablet 30 TAKE ONE TABLET BY MOUTH THREE T IMES A DAY FOR 10 DAYS TAKE ONE TABLET BY MOUTH THREE TIMES A DAY FOR 10 DAYS SOLD: 06/04/2020 [facility] 20 mg 05/27/2020 12:00:00 AM EST tablet 30 TAKE ONE TABLET BY MOUTH EVERY DAY WITH FOOD TAKE ONE TABLET BY MOUTH EVERY DAY WITH FOOD SOLD: 06/26/2020 [facility] 20 mg 05/27/2020 12:00:00 AM EST tablet 30 TAKE ONE TABLET BY MOUTH EVERY DAY WITH FOOD TAKE ONE TABLET BY MOUTH EVERY DAY WITH FOOD SOLD: 05/29/2020 [facility] 1,250 mcg (50,000 unit) 04/01/2020 12:00:00 AM EDT capsule 12 TAKE ONE CAPSULE BY MOUTH EVERY 7 DAYS TAKE ONE CAPSULE BY MOUTH EVERY 7 DAYS SOLD: 06/26/2020 [facility] 1,250 mcg (50,000 unit) 04/01/2020 12:00:00 AM EDT capsule 12 TAKE ONE CAPSULE BY MOUTH EVERY 7 DAYS TAKE ONE CAPSULE BY MOUTH EVERY 7 DAYS SOLD: 01/13/2021 [facility] 1,250 mcg (50,000 unit) 04/01/2020 12:00:00 AM EDT capsule 12 TAKE ONE CAPSULE BY MOUTH EVERY 7 DAYS TAKE ONE CAPSULE BY MOUTH EVERY 7 DAYS SOLD: 10/15/2020 [facility] 40 mg 03/20/2020 12:00:00 AM EDT capsule,delayed release (DR/EC) 60 TAKE ONE CAPSULE BY MOUTH TWICE A DAY TAKE ONE CAPSULE BY MOUTH TWICE A DAY SOLD: 04/29/2020 [facility] 40 mg 03/20/2020 12:00:00 AM EDT capsule,delayed release (DR/EC) 60 TAKE ONE CAPSULE BY MOUTH TWICE A DAY TAKE ONE CAPSULE BY MOUTH TWICE A DAY SOLD: 06/20/2020 [facility] 20 mg 02/27/2020 12:00:00 AM EDT tablet 30 TAKE ONE TABLET BY MOUTH EVERY DAY WITH FOOD TAKE ONE TABLET BY MOUTH EVERY DAY WITH FOOD SOLD: 04/29/2020 [facility] 2.5 mg 10/22/2019 12:00:00 AM EDT tablet 30 TAKE ONE TABLET BY MOUTH AT BEDTIME TAKE ONE TABLET BY MOUTH AT BEDTIME SOLD: 07/07/2020 [facility] 2.5 mg 10/22/2019 12:00:00 AM EDT tablet 30 TAKE ONE TABLET BY MOUTH AT BEDTIME TAKE ONE TABLET BY MOUTH AT BEDTIME SOLD: 06/08/2020 [facility] 2.5 mg 10/22/2019 12:00:00 AM EDT tablet 30 TAKE ONE TABLET BY MOUTH AT BEDTIME TAKE ONE TABLET BY MOUTH AT BEDTIME SOLD: 09/04/2020 [facility] 2.5 mg 10/22/2019 12:00:00 AM EDT tablet 30 TAKE ONE TABLET BY MOUTH AT BEDTIME TAKE ONE TABLET BY MOUTH AT BEDTIME SOLD: 08/06/2020 [facility] 2.5 mg 10/22/2019 12:00:00 AM EDT tablet 30 TAKE ONE TABLET BY MOUTH AT BEDTIME TAKE ONE TABLET BY MOUTH AT BEDTIME SOLD: 05/09/2020 [facility] Ampicillin 2000 MG / Sulbactam 1000 MG Injection [Unas yn] Unasyn 3 (2-1) GM Unasyn 3 (2-1) GM active Unasyn 3 (2-1) GM eCW1 ([facility]) Insurance Providers Payer name Policy type / Coverage type Policy ID Covered constitution party ID Covered constitution party's relationship to valencia Policy [place] Plan Information BCBS GENERIC C [id number] Self [id number] EXCELLUS C [id number] Self [id number] BLUE CROSS [id number] S [id number] BLUE [employer]OSS [id number] S [id number] [facility] [id number] S [id number] [facility] UNAVAILABLE S UNAVAILABLE EXCELLUS [place] REED [id number] Unemploye d [id number] BLUE CROSS [id number] S [id number] BLUE CROSS [id number] S [id number] [facility] [employer] PRO[employer] [id number] SP [id number] EXCELLUS BS [place] [employer] [place] [id number] Unemploye d [id number] [facility] [employer] [id number] SP [id number] Problems, Conditions, and Diagnoses Code Display Name Description Problem Type Effective Dates Data Source(s) E55.9 Vitamin D deficiency, unspecified VITAMIN D DEFI CIENCY, UNSPECIFIED Diagnosis 06/01/2021 12:53:00 PM EST [facility] 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 MALIG NEOPLASM OF UPPER-OUTER QUADRANT O Diagnosis 06/01/2021 12:53:00 PM ES T [facility] R91.8 Other nonspecific abnormal finding of jailyn ng field OTHER NONSPECIFIC ABNORMAL FINDING OF LUNG FIELD Diagnosis 04/27/2021 10:11:00 AM EDT [facility] TELEMED FOL TELEMED FOL Diagnosis 04/15/2021 07:42:21 AM EDT [facility] R91.8 Other nonspecific abnormal finding of jailyn ng field OTHER NONSPECIFIC ABNORMAL FINDING OF LUNG FIELD Diagnosis 04/01/2021 07:00:00 AM EDT [facility] Z90.49 Acquired absence of other specified part s of digestive tract ACQUIRED ABSENCE OF OTHER SPECIFIED PARTS OF DIGESTIVE TRACT Diagnosis 07:00:00 AM EDT [facility] Z93.3 Colostomy status COLOSTOMY STATUS Diagnosis 04/01/2021 07 :00:00 AM EDT [facility] fol fol Diagnosis 03/11/2021 12:04:52 PM ED [facility] B96.20 Unspecified Escherichia coli [E. coli] as the cause of diseases classified elsewhere UNSP ESCHERICHIA COLI THE CAUSE OF DISEASES CLA Diagnosis 12/04/2020 12:17:00 PM [facility] K65.1 Peritoneal abscess PERITONEAL ABSCESS Diagnosis 12:17:00 PM [facility] A49.8 Other bacterial infections of unspecifie d site OTHER BACTERIAL INFECTIONS OF UNSPECIFIED SITE Diagnosis 11/28/2020 10:46:00 AM EDT [facility] A49.01 Methicillin susceptible Stap hylococcus aureus infection, unspecified site METHICILLIN SUSCEP STAPH INFECTION, UNSP SITE Diagnosis 11/28/2020 10:46:00 AM [facility] L02.91 Cutaneous abscess, unspecified CUTANEOUS ABSCESS, UNSP ECIFIED Diagnosis 11/24/2020 04:51:00 PM [facility] 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 [employer] (CURRENT) USE OF ANTICOAGULANTS Diagnosis 11/24/2020 11:50:00 AM EDT [facility] Z93.3 Colostomy status COLOSTOMY STATUS Diagnosis 11/24/2020 11 :50:00 AM [facility] K57.80 Diverticulitis of intestine, part unspecified, with perforation and abscess without bleeding DVTRCLI OF INTEST, PART UNSP, W PERF AND ABSCESS W Diagnosis 11/24/2020 11:50:00 AM [facility] D68.51 Activated protein C resistance ACTIVATED PROTEIN C RES ISTANCE Diagnosis 11/24/2020 11:50:00 AM [facility] Z92.3 Personal history of irradiation PERSONAL HISTORY OF IR RADIATION Diagnosis 11/24/2020 11:50:00 AM [facility] 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 Encounter for follow-up exam ination after completed treatment for malignant neoplasm ENCNTR FOR FOLLOW-UP EXAM AFTER TRTMT FOR MALIGNANT NEOPLASM Diagnosis 11/24/2020 11:50:00 AM [facility] Y83.8 Other surgical procedures as the cause of abnormal reaction of the patient, or of later complication, without mention of misadventure at the time of the procedure [facility] SURGICAL PROCEDURES CAUSE ABN REACT/COMPL, W/O MIS ADVNT Diagnosis 11/07/2020 03:06:00 PM [facility] B96.89 Other specified bacterial ag ents as the cause of diseases classified elsewhere OT BACTERIAL AGENTS THE CAUSE OF DISEASES CLASSD ELSWHR Diagnosis 11/07/2020 03:06:00 PM [facility] R35.0 Frequency of micturition FREQUENCY OF MICTURITION Diag nosis 11/07/2020 03:06:00 PM [facility] K91.870 Postprocedural hematoma of a digestive system organ or structure following a digestive system procedure POSTPROC HEMATOMA OF A DGSTV SYS ORG FOL A DGSTV SYS PROC Diagnosis 11/07/2020 03:06:00 PM [facility] Z98.890 Other specified postprocedural states OT HER SPECIFIED POSTPROCEDURAL STATES Diagnosis 11/07/2020 03:06:00 PM [facility] Z79.01 senior living (current) use of anticoagulant s COMPANY MARK[employer] (CURRENT) USE OF ANTICOAGULANTS Diagnosis 11/07/2020 03:06:00 PM [facility] Z86.718 Personal history of other venous thrombo sis and embolism PERSONAL HISTORY OF OTHER VENOUS THROMBOSIS AND EMBOLISM Diagnosis 2020 03:06:00 PM [facility] K21.9 Gastro-esophageal reflux disease without esophagitis GASTRO-ESOPHAGEAL REFLUX DISEASE WITHOUT ESOPHAGITIS Diagnosis 11/07/2020 03:06:00 PM ED [facility] Z85.3 Personal history of malignant neoplasm o f breast PERSONAL HISTORY OF MALIGNANT NEOPLASM OF BREAST Diagnosis 11/07/2020 03:06:00 PM EDT [facility] B95.61 Methicillin susceptible Stap hylococcus aureus infection as the cause of diseases classified elsewhere METHICILLIN SUSCEP STAPH INFCT CAUSING D IS CLASSD ELSWHR Diagnosis 11/07/2020 03:06:00 PM EDT [facility] T81.32XD Disruption of internal opera tion (surgical) wound, not elsewhere classified, subsequent encounter DISRUPTION OF INTERNAL OPERATION (SURGIC AL) WOUND, NEC, SUBS Diagnosis 11/07/2020 03:06:00 PM EDT [facility] K65.1 Peritoneal abscess PERITONEAL ABSCESS Diagnosis 03:06:00 PM EDT [facility] T81.43XD INFCT FOL A PROCEDURE, ORGAN AND SPACE S URGICAL SITE, SUBS INFCT FOL A PROCEDURE, ORGAN AND SPACE SURGICAL SITE, SUBS Diagnosis 021 03:06:00 PM EDT [facility] R30.0 Dysuria DYSURIA Diagnosis 10/28/2020 03:48:00 PM ED [facility] s/p op s/p op Diagnosis 10/08/2020 01:08:56 PM [facility] K57.92 Diverticulitis of intestine, part unspecified, without perforation or abscess without bleeding Diverticulitis of intestine, part unspec ified, without perforation or abscess without bleeding Diagnosis 09/30/2020 02:41:33 PM [facility] Z78.9 Other specified health status Other specified health s tatus Diagnosis 09/30/2020 02:32:00 PM [facility] Z74.09 Other reduced mobility Other reduced mobility Diagnosi s 09/30/2020 02:32:00 PM [facility] Pefforated Diverticulitis Pefforated Diverticulitis Di agnosis 09/30/2020 02:32:00 PM [facility] Z93.3 Colostomy status Colostomy status Diagnosis 09/25/2020 07 :15:55 AM [facility] D68.51 Activated protein C resistance Activated protein C res istance Diagnosis 09/25/2020 07:15:52 AM [facility] I95.9 Hypotension, unspecified Hypotension, unspecified Diag nosis 09/24/2020 09:19:00 PM [facility] Perforated diverticulitis Perforated diverticulitis Di agnosis 09/22/2020 03:16:00 PM [facility] Z20.822 Contact with and (suspected) exposure to covid-19 Contact with and (suspected) exposure to covid-19 Diagnosis 09/14/2020 01:02:00 AM [facility] Z87.891 Personal history of nicotine dependence Personal history of nicotine dependence Diagnosis 09/14/2020 01:02:00 AM [facility] R10.84 Generalized abdominal pain Generalized abdominal pain Diagnosis 09/14/2020 01:02:00 AM [facility] Perforated Diverticulitis Perforated Diverticulitis Di agnosis 09/14/2020 01:02:00 AM [facility] Z87.19 Personal history of other diseases of th e digestive system PERSONAL HISTORY OF OTHER DISEASES OF THE DIGESTIV Diagnosis 09/12/2020 05:26:0 0 PM [facility] R10.32 Left lower quadrant pain LEFT LOWER QUADRANT PAIN Diag nosis 09/12/2020 05:26:00 PM [facility] R10.9 Unspecified abdominal pain UNSPECIFIED ABDOMINAL PAIN Diagnosis 09/12/2020 05:26:00 PM [facility] K57.20 Diverticulitis of large inte ingrid with perforation and abscess without bleeding DVTRCLI OF LG INT W PERFORATION AND ABSCESS W/O BLEEDING Bernarda gnosis 09/12/2020 08:00:00 AM [facility] Z12.31 Encounter for screening mammogram for ma lignant neoplasm of breast ENCNTR SCREEN MAMMOGRAM FOR MALIGNANT NEOPLASM OF BREAST Diagnosis 03:42:00 AM [facility] Z20.822 CONTACT WITH AND (SUSPECTED) EXPOSURE TO COVID-19 CONTACT WITH AND (SUSPECTED) EXPOSURE TO COVID-19 Diagnosis 09/09/2020 09:03:00 AM [facility] Z01.812 Encounter for preprocedural laboratory e xamination ENCOUNTER FOR PREPROCEDURAL LABORATORY EXAMINATION Diagnosis 09/09/2020 09:03:00 AM [facility] K57.92 Diverticulitis of intestine, part unspecified, without perforation or abscess without bleeding DVTRCLI OF INTEST, PART UNSP, W/O PERF OR ABSCESS Diagnosis 08/28/2020 03:39:00 AM [facility] K43.9 Ventral hernia without obstruction or ga ngrene VENTRAL HERNIA WITHOUT OBSTRUCTION OR GANGRENE Diagnosis 08/28/2020 03:39:00 AM [facility] K76.0 Fatty (change of) liver, not elsewhere c lassified FATTY (CHANGE OF) LIVER, NOT ELSEWHERE CLASSIFIED Diagnosis 08/28/2020 03:39:00 AM [facility] R10.13 Epigastric pain EPIGASTRIC PAIN Diagnosis 08/28/2020 03:3 9:00 AM [facility] Z85.3 Personal history of malignant neoplasm o f breast PERSONAL HISTORY OF MALIGNANT NEOPLASM OF BREAST Diagnosis 08/20/2020 11:14:00 AM [facility] K46.9 Unspecified abdominal hernia without obs truction or gangrene UNSPECIFIED ABDOMINAL HERNIA WITHOUT OBSTRUCTION O Diagnosis 08/20/2020 11:14:00 A M [facility] K57.30 Diverticulosis of large inte ingrid without perforation or abscess without bleeding DVRTCLOS OF LG INT W/O PERFORATION OR ABSCESS W/O Diagnosis 08/20/2020 11:14:00 AM [facility] Z12.11 Encounter for screening for malignant ne oplasm of colon ENCOUNTER FOR SCREENING FOR MALIGNANT NE Diagnosis 08/20/2020 11:14:00 AM [facility] Z09 Encounter for follow-up exam ination after completed treatment for conditions other than malignant neoplasm ENCNTR FOR F/U EXAM AFT TRTMT FOR COND O TH THAN MALIG NEOPLM Diagnosis 08/20/2020 11:14:00 [facility] Z[facility].49 Acquired absence of other specified part s of digestive tract ACQUIRED ABSENCE OF OTHER SPECIFIED PARTS OF DIGES Diagnosis 07/09/2020 09:59:0 0 AM [facility] Z20.828 Contact with and (suspected) exposure to other viral communicable diseases CONTACT W AND EXPOSURE TO OTH VIRAL COMMUNICABLE D Diagnosis 07/09/2020 09:59:00 AM [facility] R10.30 Lower abdominal pain, unspecified LOWER ABDOMINA L PAIN, UNSPECIFIED Diagnosis 07/09/2020 09:59:00 AM [facility] K42.9 Umbilical hernia without obstruction or gangrene UMBILICAL HERNIA WITHOUT OBSTRUCTION OR GANGRENE Diagnosis 07/08/2020 10:38:00 AM [facility] K57.32 Diverticulitis of large inte ingrid without perforation or abscess without bleeding DVTRCLI OF LG INT W/O PERFORATION OR ABSCESS W/O B Diagnosis 07/08/2020 10:38:00 AM [facility] B96.89 Other specified bacterial ag ents as the cause of diseases classified elsewhere OTH BACTERIAL AGENTS THE CAUSE OF DISEASES CLAS Diagnosis 05/20/2020 07:56:00 AM [facility] N39.0 Urinary tract infection, site not specif ied URINARY TRACT INFECTION, SITE NOT SPECIFIED Diagnosis 05/20/2020 07:56:00 AM [facility] E66.01 Morbid (severe) obesity due to excess ca lories MORBID (SEVERE) OBESITY DUE TO EXCESS CA Diagnosis 05/20/2020 07:56:00 AM [facility] R73.03 PREDIABETES PREDIABETES Diagnosis 05/20/2020 07:56:00 AM [facility] R63.4 Abnormal weight loss ABNORMAL WEIGHT LOSS Diagnosis 05/20/2020 07:56:00 AM [facility] I82.401 Acute embolism and thrombosi s of unspecified deep veins of right lower extremity ACUTE EMBOLISM AND THOMBOS UNSP DEEP VEINS OF R LO Diagnosis 04/24/2020 01:55:00 PM EDT [facility] Z93.[id number] Problem 11/20/2020 12:00: 00 AM EDT eCW1 ([facility] [facility] Z95.828 [id number] S/P PICC central line placement Problem 11/20/2020 12:00:00 AM EDT eC ([facility]) K57.80 [id number] Perforated diverticulum Problem 10/15/2020 1 2:00:00 AM EDT [facility] ([facility]) K57.20 [id number] Colonic diverticular abscess Problem 07/17/2020 12:00:00 AM EST eCW1 ([facility] K57.92 [id number] Diverticulitis Problem 06/26/2020 12:00:00 A M EST eCW1 ([facility]) Z68.41 [id number] Body mass index [BMI]40.0-44.9, adult Pro blem 05/29/2020 12:00:00 AM EST eCW1 ([facility]) C50.919 [id number] Ductal carcinoma of breast, unspecified l aterality Problem 05/29/2020 12:00:00 AM EST eCW1 ([facility]) E66.01 [id number] Morbid (severe) obesity due to excess c alories Problem 05/29/2020 12:00:00 AM EST eCW1 ([facility]) K43.9 [id number] Ventral hernia without obstruction or bozena grene Problem 05/29/2020 12:00:00 AM EST eCW1 ([facility]) Z12.11 [id number] Encounter for screening colonoscopy Probl em 05/29/2020 12:00:00 AM EST eCW1 ([facility]) K21.9 [id number] Gastroesophageal ref lux disease, esophagitis presence not specified Problem 05/29/2020 12:00:00 AM EST eCW1 ([facility]) Surgeries/Procedures Procedure Description Date Indications Data Source(s) [id number] 06/12/2021 12:00:00 AM EST [facility] Bronchospasm Evaluation 06/04/2021 12:00:00 AM EST [facility] ([facility], ) Plethysmography Determination Lung Volumes & Per Airway Resi st 06/04/2021 12:00:00 AM EST [facility] ([facility], ) DIFFUSING CAPACITY 06/04/2021 12:00:00 AM EST [facility] ([facility], ) OFFICE OUTPATIENT VISIT 25 MINUTES 06/04/2021 12:00:00 AM EST [facility] ([facility], ) OFFICE OUTPATIENT NEW 45 MINUTES 05/07/2021 12:00:00 A M EDT VALER[facility] ([facility], ) CT ABDOEN & PELVIS W/CONTRAST MATERIAL CT ABD & PELV W/CONTR AST 04/01/2021 12:00:00 AM [facility] Low osmolar contrast material, 300-399 mg/ml iodine co ncentration, per ml Locm 300-399mg/ml iodine,1ml Long 04/01/2021 12:00:00 AM [facility] outpatient clinic visit for assessment and ma nagement of a patient Hospital Outpatient Clinic Visit 11/18/2020 12:00:00 AM [facility] Computerized Tomography (CT Scan) of Pelvic Region COM PUTERIZED TOMOGRAPHY (CT SCAN) OF PELVIC REGION 11/14/2020 12:00:00 AM [facility] Change Drainage Device in Pelvic Cavity, External Appr oach CHANGE DRAINAGE DEVICE IN PELVIC CAVITY, EXTERNAL APPROACH 11/13/2020 12:00:00 AM [facility] Ultrasonography of Superior Vena Cava, Guidance ULTRAS ONOGRAPHY OF SUPERIOR VENA CAVA, GUIDANCE 11/11/2020 12:00:00 AM [facility] Insertion of Infusion Device into Superior Vena Cava, Percutaneous Approach INSERTION OF INFUSION DEV INTO SUP VENA CAVA, PERC APPROACH 11/11/2020 12:00:00 AM [facility] Computerized Tomography (CT Scan) of Abdomen and Pelvi s COMPUTERIZED TOMOGRAPHY (CT SCAN) OF ABDOMEN AND PELVIS 11/11/2020 12:00:00 AM [facility] Excision of Abdomen Subcutaneous Tissue and Fascia, Op en Approach EXCISION OF ABD SUBCU/FASCIA, OPEN APPROACH 11/10/2020 12:00:00 AM [facility] Non-covered item or service 11/08/2020 12:00:00 AM [facility] Computerized Tomography (CT Scan) of Abd omen and Pelvis using Low Osmolar Contrast CT SCAN OF ABD & PELVIS USING L OSM CONTRAST 12:00:00 AM [facility] Drainage of Pelvic Cavity with Drainage Device, Percut aneous Approach DRAINAGE OF PELVIC CAVITY WITH DRAIN DEV, PERC APPROACH 11/07/2020 12:00:00 AM [facility] [id number] 11/07/2020 12:00:00 AM EDT [facility] SMR PRIM SRC GRAM/GIEMSA STAIN BCT FUNGI/CELL 11/08/19 12:00:00 AM [facility] CUL BACT XCPT URINE BLOOD/STOOL AEROBIC ISOL 12:00:00 AM [facility] URNLS DIP STICK/TABLET REAGENT AUTO MICROSCOPY 12:00:00 AM [facility] THROMBOPLASTIN TIME PARTIAL PLASMA/WHOLE BLOOD 12:00:00 AM [facility] PROTHROMBIN TIME 11/07/2020 12:00:00 AM [facility] BLOOD COUNT COMPLETE AUTO&AUTO DIFRNTL WBC COUNT 11/07 12:00:00 AM [facility] LACTATE 11/07/2020 12:00:00 AM T [facility] C-REACTIVE PROTEIN 11/07/2020 12:00:00 AM [facility] COMPREHENSIVE METABOLIC PANEL 11/07/2020 12:00:00 AM E DT [facility] Injection, vancomycin hcl, 500 mg 11/07/2020 12:00:00 AM [facility] Injection, fentanyl citrate, 0.1 mg 11/07/2020 12:00:0 0 AM [facility] Injection, piperacillin sodium/tazobacta m sodium, 1 gram/0.125 grams (1.125 grams) 11/07/2020 12:00:00 AM [facility] CT GUIDANCE NEEDLE PLACEMENT 11/07/2020 12:00:00 AM ED [facility] RADIOLOGICAL GUIDANCE PRQ DRG W/PLMT CATH RS&I 12:00:00 AM [facility] BLOOD COUNT COMPLETE AUTO&AUTO DIFRNTL WBC COUNT <td>C BC AND DIFFERENTIAL</td><td>Routine</td><td>10/06/2020 5:33 AM EDT</td><td></td><td> </td> 10/06/2020 05:33:00 AM [facility] BASIC METABOLIC PANEL CALCIUM TOTAL <td>BASIC METABOLI C PANEL</td><td>Routine</td><td>10/06/2020 5:33 AM EDT</td><td></td><td> </td> 10/06/2020 05:33:00 AM [facility] BLOOD COUNT COMPLETE AUTOMATED <td>CBC</td><td>Routine </td><td>10/05/2020 9:23 AM EDT</td><td></td><td> </td> 10/05/2020 09:23:00 AM [facility] ULTRASOUND ABDOMINAL REAL TIME W/IMAGE LIMITED <td>US ABDOMEN LIMITED [id number]</td><td>Routine</td><td>10/03/2020 5:30 PM EDT</td><td></td><td> </td> 10/03/2020 05:30:10 PM [facility] BLOOD COUNT COMPLETE AUTOMATED <td>CBC</td><td>Routine </td><td>09/30/2020 4:02 AM EDT</td><td></td><td> </td> 09/30/2020 04:02:00 AM [facility] COVID-19 PCR <td>COVID-19 PCR</td><td>Rou monica</td><td>09/29/2020 1:56 PM EDT</td><td></td><td> </td> 09/29/2020 01:56:00 PM [facility] BLOOD COUNT COMPLETE AUTOMATED <td>CBC</td><td>Timed</ td><td>09/29/2020 4:51 AM EDT</td><td></td><td> </td> 09/29/2020 04:51:00 AM [facility] PHOSPHORUS INORGANIC <td>PHOSPHORUS LEVEL</td><td >Routine</td><td>09/29/2020 4:51 AM EDT</td><td></td><td> </td> 09/29/2020 04:51:00 AM [facility] MAGNESIUM <td>MAGNESIUM LEVEL</td><td> Routine</td><td>09/29/2020 4:51 AM EDT</td><td></td><td> </td> 09/29/2020 04:51:00 AM [facility] BLOOD COUNT COMPLETE AUTOMATED <td>CBC</td><td>Timed</ td><td>09/28/2020 4:48 PM EDT</td><td></td><td> </td> 09/28/2020 04:48:00 PM [facility] BLOOD COUNT COMPLETE AUTOMATED <td>CBC</td><td>Timed</ td><td>09/28/2020 5:35 AM EDT</td><td></td><td> </td> 09/28/2020 05:35:00 AM [facility] PHOSPHORUS INORGANIC <td>PHOSPHORUS LEVEL</td><td >Routine</td><td>09/28/2020 5:35 AM EDT</td><td></td><td> </td> 09/28/2020 05:35:00 AM [facility] MAGNESIUM <td>MAGNESIUM LEVEL</td><td> Routine</td><td>09/28/2020 5:35 AM EDT</td><td></td><td> </td> 09/28/2020 05:35:00 AM [facility] BASIC METABOLIC PANEL CALCIUM TOTAL <td>BASIC METABOLI C PANEL</td><td>Routine</td><td>09/28/2020 5:35 AM EDT</td><td></td><td> </td> 09/28/2020 05:35:00 AM [facility] BLOOD COUNT COMPLETE AUTOMATED <td>CBC</td><td>Timed</ td><td>09/27/2020 1:24 PM EST</td><td></td><td> </td> 09/27/2020 01:24:00 PM [facility] BLOOD COUNT COMPLETE AUTOMATED <td>CBC</td><td>Timed</ td><td>09/27/2020 2:44 AM EST</td><td></td><td> </td> 09/27/2020 02:44:00 AM [facility] PHOSPHORUS INORGANIC <td>PHOSPHORUS LEVEL</td><td >Routine</td><td>09/27/2020 2:44 AM EST</td><td></td><td> </td> 09/27/2020 02:44:00 AM [facility] MAGNESIUM <td>MAGNESIUM LEVEL</td><td> Routine</td><td>09/27/2020 2:44 AM EST</td><td></td><td> </td> 09/27/2020 02:44:00 AM [facility] BASIC METABOLIC PANEL CALCIUM TOTAL <td>BASIC METABOLI C PANEL</td><td>Routine</td><td>09/27/2020 2:44 AM EST</td><td></td><td> </td> 09/27/2020 02:44:00 AM [facility] BLOOD COUNT COMPLETE AUTOMATED <td>CBC</td><td>Timed</ td><td>09/26/2020 5:58 PM EST</td><td></td><td> </td> 09/26/2020 05:58:00 PM [facility] BLOOD COUNT COMPLETE AUTOMATED <td>CBC</td><td>Timed</ td><td>09/26/2020 4:47 AM EST</td><td></td><td> </td> 09/26/2020 04:47:00 AM [facility] PHOSPHORUS INORGANIC <td>PHOSPHORUS LEVEL</td><td >Routine</td><td>09/26/2020 4:47 AM EST</td><td></td><td> </td> 09/26/2020 04:47:00 AM [facility] MAGNESIUM <td>MAGNESIUM LEVEL</td><td> Routine</td><td>09/26/2020 4:47 AM EST</td><td></td><td> </td> 09/26/2020 04:47:00 AM [facility] BASIC METABOLIC PANEL CALCIUM TOTAL <td>BASIC METABOLI C PANEL</td><td>Routine</td><td>09/26/2020 4:47 AM EST</td><td></td><td> </td> 09/26/2020 04:47:00 AM [facility] BLOOD COUNT COMPLETE AUTOMATED <td>CBC</td><td>STAT</t d><td>09/25/2020 5:20 PM EST</td><td></td><td> </td> 09/25/2020 05:20:00 PM [facility] TRANSFUSE RBC (ONCE) <td>TRANSFUSE RBC (ONCE)</td ><td>STAT</td><td>09/25/2020 2:32 PM EST</td><td></td><td></td> 09/25/2020 02:32:14 PM [facility] BLOOD COUNT COMPLETE AUTO&AUTO DIFRNTL WBC COUNT <td>C BC AND DIFFERENTIAL</td><td>Timed</td><td>09/25/2020 1:03 PM EST</td><td></td><td> </td> 09/25/2020 01:03:00 PM [facility] BLOOD COUNT COMPLETE AUTOMATED <td>CBC AND DIFFERENTIAL</td><td>Timed</td><td>09/25/2020 6:34 AM EST</td><td></td><td> </td> 09/25/2020 06:34:00 AM [facility] BASIC METABOLIC PANEL CALCIUM TOTAL <td>BASIC METABOLI C PANEL</td><td>Routine</td><td>09/25/2020 6:34 AM EST</td><td></td><td> </td> 09/25/2020 06:34:00 AM [facility] TRANSFUSE RBC (ONCE) <td>TRANSFUSE RBC (ONCE)</td ><td>STAT</td><td>09/25/2020 3:52 AM EST</td><td></td><td></td> 09/25/2020 03:52:06 AM [facility] SLCTV CATHJ 3RD+ ORD SLCTV ABDL PEL/LXTR BRNCH <td>IR VISCERAL ARTERIOGRAM</td><td>STAT</td><td>09/25/2020 2:59 AM EST</td><td></td><td> </td> 09/25/2020 02:59:00 AM [facility] COMPREHENSIVE METABOLIC PANEL <td>METABOLIC PANEL, COMPREHENSIVE</td><td>STAT</td><td>09/25/2020 12:59 AM EST</td><td></td><td> </td> 09/25/2020 12:59:00 AM [facility] THROMBOPLASTIN TIME PARTIAL PLASMA/WHOLE BLOOD <td>PAR TIAL THROMBOPLASTIN TIME (PTT)</td><td>STAT</td><td>09/25/2020 12:59 AM EST</td><td></td><td> </td> 09/25/2020 12:59:00 AM [facility] PROTHROMBIN TIME <td>PROTIME INR</td><td>STAT </td><td>09/25/2020 12:59 AM EST</td><td></td><td> </td> 09/25/2020 12:59:00 AM [facility] BLOOD COUNT COMPLETE AUTO&AUTO DIFRNTL WBC COUNT <td>C BC AND DIFFERENTIAL</td><td>STAT</td><td>09/25/2020 12:59 AM EST</td><td></td><td> </td> 09/25/2020 12:59:00 AM [facility] BLOOD TYPING ABO <td>TYPE AND SCREEN</td><td> STAT</td><td>09/25/2020 12:59 AM EST</td><td></td><td> </td> 09/25/2020 12:59:00 AM [facility] BLOOD TYPING ABO <td>TYPE AND SCREEN</td><td> STAT</td><td>09/24/2020 9:32 PM EST</td><td></td><td> </td> 09/24/2020 09:32:00 PM [facility] BLOOD GASES ANY COMBINATION PH PCO2 PO2 CO2 HCO3 <td>B LOOD GAS, VENOUS</td><td>Routine</td><td>09/24/2020 9:23 PM EST</td><td></td><td> </td> 09/24/2020 09:23:[address] [facility] [address] ABDOEN & PELVIS W/CONTRAST MATERIAL <td>CT ABDOMEN PELVIS WITH CONTRAST [id number]</td><td>STAT</td><td>09/24/2020 8:58 PM EST</td><td></td><td> </td> 09/24/2020 08:58:12 PM [facility] EKG 12-LEAD - CMAXX REPORT <td>EKG 12-LEAD - CMAXX REPORT</td><td></td><td>09/24/2020 8:26 PM EST</td><td></td><td></td> 09/24/2020 08:26:28 PM [facility] EKG 12-LEAD - CMAXX REPORT <td>EKG 12-LEAD - CMAXX REPORT</td><td></td><td>09/24/2020 8:26 PM EST</td><td></td><td></td> 09/24/2020 08:26:28 PM [facility] EKG 12-LEAD <td>EKG 12-LEAD</td><td>Rout ine</td><td>09/24/2020 8:26 PM EST</td><td></td><td></td> 09/24/2020 08:26:28 PM [facility] METABOLIC PANEL, COMPREHENSIVE <td>METABOLIC PANEL, COMPREHENSIVE</td><td>Routine</td><td>09/24/2020 8:05 PM EST</td><td></td><td> </td> 09/24/2020 08:05:00 PM [facility] PROTHROMBIN TIME <td>PROTIME INR</td><td>Rout ine</td><td>09/24/2020 8:05 PM EST</td><td></td><td> </td> 09/24/2020 08:05:00 PM [facility] BLOOD COUNT COMPLETE AUTO&AUTO DIFRNTL WBC COUNT <td>C BC AND DIFFERENTIAL</td><td>Routine</td><td>09/24/2020 8:05 PM EST</td><td></td><td> </td> 09/24/2020 08:05:00 PM [facility] LACTATE <td>LACTIC ACID LEVEL, PLASM A</td><td>Routine</td><td>09/24/2020 8:05 PM EST</td><td></td><td> </td> 09/24/2020 08:05:00 PM [facility] POCT GLUCOSE, DOCKED <td>POCT GLUCOSE, DOCKED</td ><td>Routine</td><td>09/24/2020 7:51 PM EST</td><td></td><td> </td> 09/24/2020 07:51:[address] [facility] [address] ANGIOGRAPHY CHEST W/CONTRAST/NONCONTRAST <td>CT ANG IOGRAPHY THORAX [id number]</td><td>STAT</td><td>09/24/2020 5:07 PM EST</td><td></td><td> </td> 09/24/2020 05:07:43 PM [facility] BLOOD COUNT COMPLETE AUTO&AUTO DIFRNTL WBC COUNT <td>C BC AND DIFFERENTIAL</td><td>Routine</td><td>09/24/2020 12:24 PM EST</td><td></td><td> </td> 09/24/2020 12:24:00 PM [facility] EKG 12-LEAD - CMAXX REPORT <td>EKG 12-LEAD - CMAXX REPORT</td><td></td><td>09/24/2020 9:06 AM EST</td><td></td><td></td> 09/24/2020 09:06:12 AM [facility] EKG 12-LEAD - CMAXX REPORT <td>EKG 12-LEAD - CMAXX REPORT</td><td></td><td>09/24/2020 9:06 AM EST</td><td></td><td></td> 09/24/2020 09:06:12 AM [facility] EKG 12-LEAD <td>EKG 12-LEAD</td><td>Rout ine</td><td>09/24/2020 9:06 AM EST</td><td></td><td> </td> 09/24/2020 09:06:12 AM [facility] EKG 12-LEAD - CMAXX REPORT <td>EKG 12-LEAD - CMAXX REPORT</td><td></td><td>09/24/2020 9:05 AM EST</td><td></td><td></td> 09/24/2020 09:05:43 AM [facility] EKG 12-LEAD - CMAXX REPORT <td>EKG 12-LEAD - CMAXX REPORT</td><td></td><td>09/24/2020 9:05 AM EST</td><td></td><td></td> 09/24/2020 09:05:43 AM [facility] EKG 12-LEAD <td>EKG 12-LEAD</td><td>Rout ine</td><td>09/24/2020 9:05 AM EST</td><td></td><td> </td> 09/24/2020 09:05:43 AM [facility] EKG 12-LEAD - CMAXX REPORT <td>EKG 12-LEAD - CMAXX REPORT</td><td></td><td>09/24/2020 9:05 AM EST</td><td></td><td></td> 09/24/2020 09:05:19 AM [facility] EKG 12-LEAD - CMAXX REPORT <td>EKG 12-LEAD - CMAXX REPORT</td><td></td><td>09/24/2020 9:05 AM EST</td><td></td><td></td> 09/24/2020 09:05:19 AM [facility] EKG 12-LEAD <td>EKG 12-LEAD</td><td>Rout ine</td><td>09/24/2020 9:05 AM EST</td><td></td><td> </td> 09/24/2020 09:05:19 AM [facility] BLOOD COUNT COMPLETE AUTO&AUTO DIFRNTL WBC COUNT <td>C BC AND DIFFERENTIAL</td><td>Routine</td><td>09/24/2020 8:54 AM EST</td><td></td><td> </td> 09/24/2020 08:54:00 AM [facility] TROPONIN QUANTITATIVE <td>TROPONIN T</td><td>Routi ne</td><td>09/24/2020 8:54 AM EST</td><td></td><td> </td> 09/24/2020 08:54:00 AM [facility] LIPASE <td>LIPASE LEVEL</td><td>STA T</td><td>09/24/2020 8:54 AM EST</td><td></td><td> </td> 09/24/2020 08:54:00 AM [facility] COMPREHENSIVE METABOLIC PANEL <td>COMPREHENSIVE METABO LIC PANEL</td><td>STAT</td><td>09/24/2020 8:54 AM EST</td><td></td><td> </td> 09/24/2020 08:54:00 AM [facility] TROPONIN QUANTITATIVE <td>TROPONIN T</td><td>Timed </td><td>09/24/2020 1:12 AM EST</td><td></td><td> </td> 09/24/2020 01:12:00 AM [facility] TROPONIN QUANTITATIVE <td>TROPONIN T</td><td>Timed </td><td>09/23/2020 8:37 PM EST</td><td></td><td> </td> 09/23/2020 08:37:00 PM [facility] BLOOD COUNT COMPLETE AUTOMATED <td>CBC AND DIFFERENTIAL</td><td>Routine</td><td>09/23/2020 3:42 PM EST</td><td></td><td> </td> 09/23/2020 03:42:00 PM [facility] TROPONIN QUANTITATIVE <td>TROPONIN T</td><td>STAT< /td><td>09/23/2020 2:48 PM EST</td><td></td><td> </td> 09/23/2020 02:48:00 PM [facility] BASIC METABOLIC PANEL CALCIUM TOTAL <td>BASIC METABOLI C PANEL</td><td>Routine</td><td>09/23/2020 2:48 PM EST</td><td></td><td> </td> 09/23/2020 02:48:00 PM [facility] EKG 12-LEAD - CMAXX REPORT <td>EKG 12-LEAD - CMAXX REPORT</td><td></td><td>09/23/2020 2:46 PM EST</td><td></td><td></td> 09/23/2020 02:46:49 PM [facility] EKG 12-LEAD - CMAXX REPORT <td>EKG 12-LEAD - CMAXX REPORT</td><td></td><td>09/23/2020 2:46 PM EST</td><td></td><td></td> 09/23/2020 02:46:49 PM [facility] EKG 12-LEAD <td>EKG 12-LEAD</td><td>Rout ine</td><td>09/23/2020 2:46 PM EST</td><td></td><td> </td> 09/23/2020 02:46:49 PM [facility] EKG 12-LEAD - CMAXX REPORT <td>EKG 12-LEAD - CMAXX REPORT</td><td></td><td>09/23/2020 2:46 PM EST</td><td></td><td></td> 09/23/2020 02:46:21 PM [facility] EKG 12-LEAD - CMAXX REPORT <td>EKG 12-LEAD - CMAXX REPORT</td><td></td><td>09/23/2020 2:46 PM EST</td><td></td><td></td> 09/23/2020 02:46:21 PM [facility] EKG 12-LEAD <td>EKG 12-LEAD</td><td>STAT </td><td>09/23/2020 2:46 PM EST</td><td></td><td> </td> 09/23/2020 02:46:21 PM [facility] BLOOD COUNT COMPLETE AUTOMATED <td>CBC</td><td>Routine </td><td>09/22/2020 5:20 AM EST</td><td></td><td> </td> 09/22/2020 05:20:00 AM [facility] BASIC METABOLIC PANEL CALCIUM TOTAL <td>BASIC METABOLI C PANEL</td><td>Routine</td><td>09/22/2020 5:20 AM EST</td><td></td><td> </td> 09/22/2020 05:20:[address] [facility] [address] ABDOEN & PELVIS W/CONTRAST MATERIAL <td>CT ABDOMEN PELVIS WITH CONTRAST [id number]</td><td>Routine</td><td>09/21/2020 5:09 PM EST</td><td></td><td> </td> 09/21/2020 05:09:24 PM [facility] COVID-19 PCR <td>COVID-19 PCR</td><td>Rou monica</td><td>09/21/2020 8:55 AM EST</td><td></td><td> </td> 09/21/2020 08:55:00 AM [facility] BLOOD COUNT COMPLETE AUTOMATED <td>CBC</td><td>Routine </td><td>09/21/2020 3:54 AM EST</td><td></td><td> </td> 09/21/2020 03:54:00 AM [facility] BASIC METABOLIC PANEL CALCIUM TOTAL <td>BASIC METABOLI C PANEL</td><td>Routine</td><td>09/21/2020 3:54 AM EST</td><td></td><td> </td> 09/21/2020 03:54:00 AM [facility] BLOOD COUNT COMPLETE AUTOMATED <td>CBC</td><td>Routine </td><td>09/20/2020 3:36 AM EST</td><td></td><td> </td> 09/20/2020 03:36:00 AM [facility] BASIC METABOLIC PANEL CALCIUM TOTAL <td>BASIC METABOLI C PANEL</td><td>Routine</td><td>09/20/2020 3:36 AM EST</td><td></td><td> </td> 09/20/2020 03:36:00 AM [facility] BLOOD COUNT COMPLETE AUTOMATED <td>CBC</td><td>Routine </td><td>09/19/2020 3:45 AM EST</td><td></td><td> </td> 09/19/2020 03:45:00 AM [facility] BASIC METABOLIC PANEL CALCIUM TOTAL <td>BASIC METABOLI C PANEL</td><td>Routine</td><td>09/19/2020 3:45 AM EST</td><td></td><td> </td> 09/19/2020 03:45:00 AM [facility] BLOOD COUNT COMPLETE AUTOMATED <td>CBC AND DIFFERENTIAL</td><td>Routine</td><td>09/18/2020 5:53 AM EST</td><td></td><td> </td> 09/18/2020 05:53:00 AM [facility] PHOSPHORUS INORGANIC <td>PHOSPHORUS LEVEL</td><td >Routine</td><td>09/18/2020 5:53 AM EST</td><td></td><td> </td> 09/18/2020 05:53:00 AM [facility] MAGNESIUM <td>MAGNESIUM LEVEL</td><td> Routine</td><td>09/18/2020 5:53 AM EST</td><td></td><td> </td> 09/18/2020 05:53:00 AM [facility] BASIC METABOLIC PANEL CALCIUM TOTAL <td>BASIC METABOLI C PANEL</td><td>Routine</td><td>09/18/2020 5:53 AM EST</td><td></td><td> </td> 09/18/2020 05:53:00 AM [facility] POTASSIUM SERUM PLASMA/WHOLE BLOOD <td>POTASSIUM</td><td>Routine</td><td>09/17/2020 12:20 PM EST</td><td></td><td> </td> 09/17/2020 12:20:00 PM [facility] BLOOD COUNT COMPLETE AUTO&AUTO DIFRNTL WBC COUNT <td>C BC AND DIFFERENTIAL</td><td>Routine</td><td>09/17/2020 3:55 AM EST</td><td></td><td> </td> 09/17/2020 03:55:00 AM [facility] PHOSPHORUS INORGANIC <td>PHOSPHORUS LEVEL</td><td >Routine</td><td>09/17/2020 3:55 AM EST</td><td></td><td> </td> 09/17/2020 03:55:00 AM [facility] MAGNESIUM <td>MAGNESIUM LEVEL</td><td> Routine</td><td>09/17/2020 3:55 AM EST</td><td></td><td> </td> 09/17/2020 03:55:00 AM [facility] BASIC METABOLIC PANEL CALCIUM TOTAL <td>BASIC METABOLI C PANEL</td><td>Routine</td><td>09/17/2020 3:55 AM EST</td><td></td><td> </td> 09/17/2020 03:55:00 AM [facility] BLOOD COUNT COMPLETE AUTOMATED <td>CBC</td><td>Routine </td><td>09/16/2020 4:47 AM EST</td><td></td><td> </td> 09/16/2020 04:47:00 AM [facility] PHOSPHORUS INORGANIC <td>PHOSPHORUS LEVEL</td><td >Routine</td><td>09/16/2020 4:47 AM EST</td><td></td><td> </td> 09/16/2020 04:47:00 AM [facility] MAGNESIUM <td>MAGNESIUM LEVEL</td><td> Routine</td><td>09/16/2020 4:47 AM EST</td><td></td><td> </td> 09/16/2020 04:47:00 AM [facility] BASIC METABOLIC PANEL CALCIUM TOTAL <td>BASIC METABOLI C PANEL</td><td>Routine</td><td>09/16/2020 4:47 AM EST</td><td></td><td> </td> 09/16/2020 04:47:00 AM [facility] XR CHEST FRONTAL ONLY [id number] <td>XR CHEST FRONTAL ONLY [id number]</td><td>STAT</td><td>09/16/2020 1:17 AM EST</td><td></td><td> </td> 09/16/2020 01:17:00 AM [facility] CONCENTRATION INFECTIOUS AGENTS <td>AFB CULTURE</td><td>Routine</td><td>09/15/2020 6:00 PM EST</td><td></td><td></td> 09/15/2020 06:00:00 PM [facility] CUL BACT XCPT URINE BLOOD/STOOL AEROBIC ISOL <td>WOUND CULTURE</td><td>Routine</td><td>09/15/2020 6:00 PM EST</td><td></td><td> </td> 09/15/2020 06:00:00 PM [facility] CULTURE FNGI MOLD/YEAST PRSMPTV OTH XCPT BLOOD <td>FUN TODD CULTURE</td><td>Routine</td><td>09/15/2020 6:00 PM EST</td><td></td><td></td> 09/15/2020 06:00:00 PM [facility] EXPLORATORY LAPAROTOMY <td>EXPLORATORY LAPAROTOMY</ td><td></td><td>09/15/2020 5:16 PM EST</td><td> perforated viscous</td><td></td> 09/15/2020 05:16:00 PM EST - 09/15/2020 10:24:[address] [facility] [address] ABDOEN & PELVIS W/CONTRAST MATERIAL <td>CT ABDOMEN PELVIS WITH CONTRAST [id number]</td><td>STAT</td><td>09/15/2020 4:00 PM EST</td><td></td><td> </td> 09/15/2020 04:00:46 PM [facility] CONFIRMATORY TYPE <td>CONFIRMATORY TYPE</td><t d>Routine</td><td>09/15/2020 3:42 PM EST</td><td></td><td> </td> 09/15/2020 03:42:00 PM [facility] BLOOD COUNT COMPLETE AUTOMATED <td>CBC</td><td>Routine </td><td>09/15/2020 4:25 AM EST</td><td></td><td> </td> 09/15/2020 04:25:00 AM [facility] PHOSPHORUS INORGANIC <td>PHOSPHORUS LEVEL</td><td >Routine</td><td>09/15/2020 4:25 AM EST</td><td></td><td> </td> 09/15/2020 04:25:00 AM [facility] MAGNESIUM <td>MAGNESIUM LEVEL</td><td> Routine</td><td>09/15/2020 4:25 AM EST</td><td></td><td> </td> 09/15/2020 04:25:00 AM [facility] BASIC METABOLIC PANEL CALCIUM TOTAL <td>BASIC METABOLI C PANEL</td><td>Routine</td><td>09/15/2020 4:25 AM EST</td><td></td><td> </td> 09/15/2020 04:25:00 AM [facility] LEVEL I SURG PATHOLOGY GROSS EXAMINATION ONLY <td>SURG ICAL PATHOLOGY EXAM ( ONLY)</td><td>Routine</td><td>09/15/2020 12:00 AM EST</td><td></td><td> </td> 09/15/2020 12:00:00 AM [facility] RESPIRATORY PATHOGEN PANEL <td>RESPIRATORY PATHOGEN PANEL</td><td>Routine</td><td>09/14/2020 12:35 PM EST</td><td></td><td> </td> 09/14/2020 12:35:00 PM [facility] COVID-19 PCR <td>COVID-19 PCR</td><td>Rou monica</td><td>09/14/2020 12:35 PM EST</td><td></td><td> </td> 09/14/2020 12:35:00 PM [facility] BLOOD COUNT COMPLETE AUTOMATED <td>CBC</td><td>Routine </td><td>09/14/2020 3:50 AM EST</td><td></td><td> </td> 09/14/2020 03:50:00 AM [facility] PHOSPHORUS INORGANIC <td>PHOSPHORUS LEVEL</td><td >Routine</td><td>09/14/2020 3:50 AM EST</td><td></td><td> </td> 09/14/2020 03:50:00 AM [facility] MAGNESIUM <td>MAGNESIUM LEVEL</td><td> Routine</td><td>09/14/2020 3:50 AM EST</td><td></td><td> </td> 09/14/2020 03:50:00 AM [facility] BASIC METABOLIC PANEL CALCIUM TOTAL <td>BASIC METABOLI C PANEL</td><td>Routine</td><td>09/14/2020 3:50 AM EST</td><td></td><td> </td> 09/14/2020 03:50:00 AM [facility] LIPASE 09/13/2020 12:00:00 AM [facility] [facility] Injection, acetaminophen, 10 mg 09/13/2020 12:00:00 AM [facility] Injection, morphine sulfate, up to 10 mg 09/13/2020 12 :00:00 AM [facility] Injection, hydromorphone, up to 4 mg 09/13/2020 12:00: 00 AM [facility] EMERGENCY DEPT VISIT HIGH SEVERITY&THREAT FUNCJ 2020 12:00:00 AM [facility] Results ID Date Data Source [id number] 06/12/2021 10:15:00 AM [facility] Name Value Range Interpretation Code Description Data Maura rce(s) Supporting Document(s) Respiratory specimen severe acute respir atory syndrome coronavirus 2 (SARS-CoV-2) RNA Negative (qualifier value) [facility] This lab was ordered by [facility] jus and reported by [facility]. ID Date Data Source [id number] 06/12/2021 10:27:00 PM [facility] COVID-19 Specimen Source NASOPHARYNGEAL Testing was performed using the Aptima SARS-CoV-2 Assay (Mytonomy System) Methodology: Nucleic Acid Amplification Pants Closer RT-PCR Mediated Amplification (TMA) and Dual Kinetic Assay (DKA) Negative results do not preclude SARS-CoV-2 infection and should not be used as the sole basis for patient management decisions. Negative results must be combined with clinical observations, patient history, and epidemiological information. This test has been authorized by FDA under an (Emergency Use Authorization) EUA for use by authorized laboratories for individuals who are suspected of COVID-19 by their healthcare provider. This test is only authorized for the duration of the declaration that circumstances exist justifying the authorization of emergency use of in vitro diagnostic tests for detection and/or diagnosis of SARS-CoV-2. Fact sheets for this EUA assay can be found at the following links EUA Fact Sheet for Providers: https://www.fda.gov/media/751179/download EUA Fact Sheet for Patients: https://www.fda.gov/media/742515/download THIS IS A STATE REPORTABLE COMMUNICABLE DISEASE. Test Performed By: [facility] [address] [place] [address] Director: Claire Roca MD Name Value Range Interpretation Code Description Data Maura rce(s) Supporting Document(s) ID Date Data Source [id number] 06/04/2021 03:48:00 PM EST [facility] ([facility], ) Name Value Range Interpretation Code Description Data Maura rce(s) Supporting Document(s) Prothrombin Time 17.8 s 12.7-14.5 Above high normal M [facility], ) Partial Thromboplastin Time 36.2 s 25.9-37.0 Norm al (applies to non-numeric results) [facility], ) Inr 1.42 Normal (applies to non-numeric resul ts) [facility] THERAPUTIC HUMAN INR VALUES INDICATIONS NORMAL RANGES PROPHYLAXIS/TREATMENT OF: VENOUS THROMBOSIS 2.0-3.0 PULMONARY EMBOLISM 2.0-3.0 PREVENTION OF SYSTEMIC EMBOLISM FROM: TISSUE HEART VALVES 2.0-3.0 ACUTE MYOCARDIAL INFARCTION 2.0-3.0 VALVULAR HEART DISEASE 2.0-3.0 ATRIAL FIBRILLATION 2.0-3.0 MECHANICAL VALVES(HIGH RISK) 2.5-3.5 RECURRENT MYOCARDIAL INFARCTION 2.5-3.5 ID Date Data Source [id number] 06/04/2021 03:48:00 PM EST [facility] ([facility], ) Name Value Range Interpretation Code Description Data Maura rce(s) Supporting Document(s) aPTT in Platelet poor plasma by Coagulation assay Laboratory test res ult [facility] ([facility], ) Platelets [#/volume] in Blood by Automated count 432 10 150-450 Normal (applies to non-numeric results) [facility] ([facility], ) ID Date Data Source [id number] 06/02/2021 08:53:00 AM [facility]OS[facility]E [facility] Name Value Range Interpretation Code Description Data Maura rce(s) Supporting Document(s) VITAMIN D 25 46 ng/mL 30-100 [facility] ID Date Data Source [id number] 06/01/2021 12:22:00 PM JOSSIE perez SHARON Sam [address] [address] FOLLOW UP NOTENAME: SILVIA ALBERTO SPHYSICIAN: LUIS ARENAS, GIANATE OF SERVICE: 06/01/21DATE OF : 63ACCOUNT #: [id number]: SILVIA SALAZARSHERRYDate: Jun 01OB: 1965Physician: Luis Arenas M.D.Age: 56Note Title: Follow UpDiagnosis:Primary - C50.412 - Malignant neoplasm of upper-outer quadrant of left femalebreast, Diagnosed Oct 22, 2019 (Active) Stage IA, T1b, pN0, M0, G2, CUA1Jgr, ER Pos, [place] PHistory of Problems:1. Stage I invasive ductal breast carcinoma, left breast.2. Morbid obesity.3. Glucose intolerance.4. Hypercholesterolemia.5. Vitamin D deficiency.Problems / Chief Complaint:Ms. Alberto is a 56-year old white woman who was referred by Dr. [facility] to review treatment of Stage I,pT1b,pN0(sn),M0 invasive ductal breast carcinoma of the let breast diagnosed10/09/2019.Toxicities:There are no reported toxicities.History of Present Illness:Oncology History:Ms. Alberto states that she had never had a mammogram before and was notfollowing with any health care provider. Her son urged her to seek medicalcare because of her family history. Initial routine mammogram was completed on09/10/2019 with a Tyrer-Cuzick score of 10.4 %. A cluster of calcification wasnoted in the upper outer aspect of the left breast. Additional views wererequested. A diagnostic left sided mammogram was completed on 09/20/2019indicating the calcifications seen on the screening mammogram are suspiciousfor possible malignancy and biopsy was recommended. On 10/09/2019 Dr. Gagnon completed a mammography guided left breast stereotactic vacuum- assistedcore biopsy with post procedural clip placement.Pathology is significant for invasive ducal carcinoma and DCIS. NottinghamHistologic score is 2. Two foci of invasive carcinoma were present with thelarger measuring 6.2 mm. 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 Estrogen receptor is 100 %and progesterone receptor is 100 %. Her-2 and Ki-67 are pending at the time ofdictation.Ms. Alberto states that she noticed no changes in either breast. Denyingdimpling, nipple retraction, nipple discharge or pain. She had nocomplications following the biopsy.The patient has lost her appetite in past 2 months with associated 32 poundweight loss. If she eats too much she gets pressure and discomfort in theupper abdomen. She is starting to eat very little, denies constipation ordiarrhea as the cause. She saw Dr. Palomares at [facility] on 01/25/[address] Martinez wanted her to see. No additional surgery is needed. Advised patient tostart radiation therapy. Dr. Palomares did bilateral ultrasound and breastexamination and the patient reports that all were normal.Has some improvement with Prilosec OTC but still experiences decreasedappetite, frequent nausea and weight loss.On 02/08/2020 the patient was diagnosed with a complete DVT of the right leg.This occurred 2 months after surgery and while she was active with no definiteprecipitating event.In June 2020 Ms. Alberto developed diverticulitis and subsequently adiverticular abscess. In September 2020 a diverting colectomy with colostomy wascompleted. Then she developed increasing abscess requiring drainage. She isnow on IV antibiotic therapy qid. She has lost approximately 90 pounds. Shewas expected to have reversal of he colostomy in March or April 2021.Interval History:CXR showed pneumonia and Juanpablo Noonan started Z- pack. CT scan was obtained [facility] and led [place] smoking many years ago and denies significant secondhand smoke exposure since then. [place] breathing [place] but isdue to have PFTs on 06/04/21. Cold air dies affect he r breathing. Colostomyreversal is delayed due to nursing shortage (nurses refusing COVID-19vaccination) at [facility]. Is on hold since it is and elective surgery.Past Medical History:HypercholesterolemiaObesityDiverticulitis in 2019Heterozygous for Factor V Leiden mutation in 2019Blood clot right leg in 2019Breast Cancer in 2019Glucose intolerance in 2019Past Surgical History:Colectomy in 2020 - Diverting.Partial mastectomy in 2019 - [facility], Dr. 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 Ms. ALBERTO quit smoking 32years ago but had smoked 0.5 packs/day for 6 years. She quit drinking 30 yearsago. Ms. ALBERTO reports no contact with hazardous material.Ms. ALBERTO reports the following support systems: lives alone and [facility]. Her diet consists of regular meals. She indicates her activity level as:daily activities. 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 ALBERTO's mother is alive: coronary artery disease, and diabetes, and CABGx 4. Ms. ALBERTO's father at age 32: Truck accident at age 32. Ms. ALBERTO'smaternal grandmother at age 91. Her maternal grandfather is :myocardial infarction, and hypertension. Her paternal grandmother is .Her paternal grandfather is . Ms. ALBERTO has 2 brothers: 2 alive. 's first brother's cardiovascular disease, and heavy smoking and alcohol.Another brother's hypercholesterolemia, and obstructive sleep apnea, andstopped smoking in mid-2019. She has 1 sister who is alive: clotting disorder.She has 3 maternal uncles: 1 alive, 2 . Ms. ALBERTO's first maternaluncle's leukemia at age 72. Another maternal uncle's end stage lung cancer,smoker. Another maternal uncle's lung cancer at age 80. Son alive and well.No family history of breast cancer or ovarian cancer.Sister and her daughter have Factor V Leiden.Review of Systems:ConstitutionalNormal - No fevers, chills, night sweats, excessive fatigue or weight loss.Has recovered completely from illness one year ago. Surgery is pendingrecovery of staffing shortages due to COVID-19.Allergic/ImmunologicNormal - No reactions.EyesNormal - No significant visual difficulties. No diplopia.ENMTNormal - No problems with hearing, no sore throat, no sinus drainage.EndocrineNormal - No diabetes, thyroid disease or hormone replacement. No hot flashesor night sweats.Hematologic/LymphaticNormal - No nose bleeds.BreastsNormal - No abnormal masses of breast, no nipple retraction, nipple dischargeor pain. OCCASIONAL ITCHY SKINRespiratoryAbnormal - Has dyspnea with cold temperatures. Pulmonary workup is inprogress. No symptoms of PE. Continues on anticoa gulation.CardiovascularNormal - No anginal chest pain, palpitations or orthopnea.GastrointestinalNormal - No nausea, vomiting, diarrhea, GI bleeding, or constipation. Nochange in bowel habits, no heartburn or early satiety.Genitourinary (F)Normal - No dysuria, no vaginal bleeding.MusculoskeletalAbnormal - Has arthritis affecting back, knees and hands.IntegumentaryNormal - No chronic rashes, inflammation, ulcerations or skin changes.NeurologicNormal - No headache, blurred vision, and no areas of focal weakness ornumbness. Normal gait. No sensory problems.PsychiatricNormal - No insomnia, depression, cheyanne or mood swings.Vital Signs:Performed on Jun 01, 2021 11:88Mbpyez87.00 mnYjfply567.6 lbs(LOW)BSA (derived)2.12 sq.mBMI39.21 (HIGH)Oijmzeqvpao67.7 DKcgqb38 /dbfAdvwyyrtdkf97 /tigFY148/66Pulse Oximetry (O2 Sat)98 %Fall RiskLOW RISKPerformance Status:0 - Fully active, able to carry on all predisease activities withoutrestrictions. (ECOG)Physical Exam:ConstitutionalNormal - Alert, cooperative, oriented. Able to move without discomfort.Appears close to chronological age.HeadNormal - Normocephalic; no scars.EyesNormal - Conjunctivae and sclerae are clear and without icterus. Pupils arereactive and equal. EOMI.ENMTNormal - No oral exudates, ulcers, masses, thrush or mucositis. Oropharynxclear. Tongue normal.NeckNormal - No masses, fatty.Hematologic/LymphaticNormal - No tender or palpable lymph nodes in the cervical, supraclavicular,axillary area.RespiratoryNormal - Lungs are clear to percussion and auscultation without rhonchi orwheezing.CardiovascularNormal - Regular rate and rhythm of heart without murmurs, gallops or rubs.BreastsAbnormal - Right breast retracted nipple (chronic), no nipple discharge, withsoft fibrocystic tissue throughout. No palpable hard masses.Left breast retracted nipple (chronic), no nipple discharge, upper outerlumpectomy scar is well healed, axillary incision line is well healed, nonodules palpable in incision lines, fibrocystic tissue in the remainingbreast, no hard masses are palpable.AbdomenNormal - Morbidly obese. Non-tender, non-distended, no masses, ascites orhepatosplenomegaly. Good bowel sounds. No guarding or tenderness even in theepigastrium. Colostomy is healthy with no bleeding.Back/SpineNormal - No kyphosis, scoliosis, compression fractures. Non- tender topalpation.ExtremitiesNormal - No visible deformities, no cyanosis, clubbing; calves are fatty butwith no edema.MusculoskeletalNormal - Vertebrae, ribs, pelvis NT on palpation. No CVAT.IntegumentaryNormal - No rashes, scars, or lesions suggestive of malignancy.NeurologicNormal - No sensory or motor deficits, normal cerebellar function, normalgait, cranial nerves II-XII grossly intact.PsychiatricNormal - Verbalizes understanding of our discussions today.Laboratory:DATE OF EXAMINATION: 04/27/2021 10:15 EDTCHEST, TWO VIEWSHISTORY: Lung infiltrateTECHNIQUE: PA and lateral radiographs of the chestCOMPARISON: 04/13/2021FINDINGS:Previously noted areas of parenchymal disease within both lower lobesare unchanged. Parenchymal disease along the peripheral aspect of leftmidlung has progressed. Heart is normal in size.IMPRESSION:Parenchymal disease bilaterally progressed along the periphery of leftmidlung consistent with pneumonia.Electronically signed in PS360 by: Jarvis Wilson M.D. 110:22 EDTReported By: Henrry WILSON M.D.Signed By: Emmett WILSON M.D..Impression:1. Stage I, pT1b,pN0 (sn),M0 invasive ductal breast carcinoma withmultifocal DCIS, HR positive, postmenopausal.2. DVT, right leg.Plan:1. The patient started Femara on 10/20/2019 and tolerated it for 2 months thendeveloped nausea and progressive anorexia. Once the diverticulitis and abscesswere treated the problems with Femara resolved. Prior to the diverticulitisshe had stopped Femara with no improvement in symptoms. The source of theproblem was related to diverticulitis and the diverticular abscess. Now thatthe appropriate intervention was completed her nausea and other GI symptomshave resolved. Annual mammogram is scheduled for 10/06/21.2. The patient is positive for Factor V Leiden mutation and requires Xarelto.I advised her to continue anticoagulation with Xarelto until all surgery andcolostomy reversal are completed. However, she can stop Xarelto if thecolostomy reversal will be delayed for several months. It can be resumed aftersurgery to prevent another DVT. She has no history of a second VTE.Follow- up: Follow-up is scheduled on 10/12/21. Name Value Range Interpretation Code Description Data Maura rce(s) Supporting Document(s) ID Date Data Source [id number] 05/27/2021 09:15:08 AM EST [facility] Name Value Range Interpretation Code Description Data Maura rce(s) Supporting Document(s) Progress Note [facility] IKCLVk8qImTZClFm59/XQKfxONQvp9JjMFluUWz4HObcVEFiL1WrMQV2aK7sGAS5BVfRGfPiUvJvKTPq lbm [file] ICAgICAgICAgICAgICAgICAgICAgICAgICAgICAgICAgICAgICAgICAgICAgICAgICAgICAgICAgICAg ICAgICAgICAgICAgICAgICANCiAgICAgICAgICAgICAgICAgICAgICAgICAgICAgICAgICAgICAgICAg ICAgICAgICAgICAgICAgICAgICAgICAgICAgICAgIC AgICAgICAgICAgICAgICAgICAgICAgICAgICANCiAgICAgICAgICAgICAgICAgICAgICAgICAgICAgIC AgICAgICAgICAgICAgICAgICAgICAgICAgICAgICAgICAgICAgICAgICAgICAgICAgICAgICAgICAgIC AgICAgICAgICANCiAgICAgICAgICAgICAgICAgICAg ICAgICAgICAgICAgICAgICAgICAgICAgICAgICAgICAgICAgICAgICAgICAgICAgICAgICAgICAgICAg ICAgICAgICAgICAgICAgICAgICANCiAgICAgICAgICAgICAgICAgICAgICAgICAgICAgICAgICAgICAg ICAgICAgICAgICAgICAgICAgICAgICAgICAgICAgIC AgICAgICAgICAgICAgICAgICAgICAgICAgICAgICANCiAgICAgICAgICAgICAgICAgICAgICAgICAgIC AgICAgICAgICAgICAgICAgICAgICAgICAgICAgICAgICAgICAgICAgICAgICAgICAgICAgICAgICAgIC AgICAgICAgICAgICANCiAgICAgICAgICAgICAgICAg ICAgICAgICAgICAgICAgICAgICAgICAgICAgICAgICAgICAgICAgICAgICAgICAgICAgICAgICAgICAg ICAgICAgICAgICAgICAgICAgICAgICANCiAgICAgICAgICAgICAgICAgICAgICAgICAgICAgICAgICAg ICAgICAgICAgICAgICAgICAgICAgICAgICAgICAgIC AgICAgICAgICAgICAgICAgICAgICAgICAgICAgICAgICANCiAgICAgICAgICAgICAgICAgICAgICAgIC AgICAgICAgICAgICAgICAgICAgICAgICAgICAgICAgICAgICAgICAgICAgICAgICAgICAgICAgICAgIC AgICAgICAgICAgICAgICANCiAgICAgICAgICAgICAg ICAgICAgICAgICAgICAgICAgICAgICAgICAgICAgICAgICAgICAgICAgICAgICAgICAgICAgICAgICAg ICAgICAgICAgICAgICAgICAgICAgICAgICANCjw/wFKmC2wreJSpvlW5E1vqGf2AUf0HRK7qg3UaTTOr JQtllvZlEdbBNiBjEPXgFluBPpr9NMjqBZ9AhWEcV6 IuN1XsJVjpLL5HOUMoBWQlvVYoATYfRXNnTvA4XFFdTFsmFO6FlPEgBXnaGNIpXGMsFgKxJZTwMGPcCF XoRIBrOBIQGBOrGOAgErZmGVnjPO2Tw1WtbYQ6EDs+St0CTB7fm1DqGDfyZZVtNI1roo6ECRdYVqAeJ2 YnzvG5XHQkIFAcQq6VAFIlOLSpsCWzHIUzPDKGVsVi K3QvuA88ASEJDi0+THrxbvHpRetMItXrEKVvy5QiABo8JF4MFBKuYBn6gBJdLHDbP8Dsd9DlYh85RRJo GqdmVy6gJHTyEZYaGfOgPQ65hO8qRLXDFSLlqWO2IbR0PpVnBmQxYVK3HCEaQL7pIPmrCV1DGGE5KPam JPAxLCItP9pYIsVsPAReXEKwyYwoCS1LXeKsE2Itkw VudCAzMCAwIFINCj4+DWmyybReFdqTTbYbKBVcw3IlZQc8MK3HSNDeJWrjIO0CRAFwcL9vWXknIN0MTk UdZTKkZRLQCfThX64awSHfTFs1E5TdDgLdEYGuRguiQQTgCIknMtZxTPJjUbFvGKjnOM5+ID4+DQogIC 9MIUpjwxBqJTZhUl6PZNGfWABkBX9pRXZoVMJxF8U9 pFloJZPLAnLqJ1nbguljRR7mMQOzU989oXsvqjYwZCUpPERmRf5ZDDAjKNW1AWUncLXrWmlhTOKMRZjf FP2IoTCjBGX1pQ7nFXqtVGPkEKBlV8aQKhKbfIuiLE20iVevmqSneTJuFTb+Uy0ZEG5ig1PdAFm0lmOn UCkrOUPoGYhlCDEqNBIxZMRmJYC1FGL7JJYBJsFrRL IzAEVvQUltMVKjWRAngb5HIFYcYMZ3UNLxHbNqIONwLJUxTMbhWDRsOHVcYDGdHFVbBDZkLP9WLaYgBG VoPRGfYCqrYOJgANDwko1HXOAyCUSkLkG1KyRhMAStAAEfHLoaFQFiGUEmXno5YUPoJQPxPC1LXzAeAJ UjHJbsBJMkPTDkRTTmzl8GYUAnWVWcYvM7BlVdPGHu CVItFOumXGJoQKF8ULUmDSAyGAKmKU5TKuSmIRWhQHYgJLpjXHDuIAKqbt3WMXXmHJXwNfKaQLWhJRWt XCMjAWqsWNIyCPEzNeN4SJXoIVWiLP0XNePuQDRnJPBbBHIzIXEsLPCtdi4VYRQsIWYnEFP3EtEuFBHe DWAqQJieAJAqBQM8SqW4RUMfPTElMA9OCkUgULWsNO V1SWJwWNJlWMHrqy3DYMPmCVJoDKpiZtPiIOMbWHPyLNgiTOMzWQM7Xju1HOHsYZObMI8ZRfKxXAHdBE P2UVrrQJWkVKSjfo2JDNZbBLOtYjR1NnHdUPBoDSRdJIrmMSPnDIT3JZj1ZNMsMDFvGD4ALdLhKVPqWW x9OwDeLOIjCULlkp5BLTKaMZU0RFiuJkEbKVOiSMVp BZtvRADvVXV4LvL7CZNrJCWmIF6GRdIzPDDeVSj8PGUcAAMwONKbiz2ZWIFjXRT8ZBqkDUKtHYYwKHGt KWxqKNSrYHZcACW5IWKrBFFnJV6JRjMrLPJoXICmNLRtVSDeLSGxpp8EBSMxTVI6PNHrMgNqZNFmIWCx NGbvNOAcQATxWKh6MIKuUXJrSV9NHfOxKTQgGZHbLU xxUIFjOFHkaf2NKFDaTZD8CjDaXGJgZIEwVRIsECr5yjDgsMXzIEy3XK3CY6SkphNsIxRHXz0Vi745AG HqSCJqNw2RM8lyEe8pXZYuQEEYTf4EGNa1Tqk4XQJ8NVYxTrKkG8TjAFZcEgZ7LvO0Ehb0NfF5H0J+ID a7ATYjHPkdPZDmDWRrGYE8ILC0PVSgXOKbDTXpWgmc QQ7qKZQYIc6+APmjeBYsdOidOEULGlRwIED4CMiwBJPHQo1F ID Date Data Source [id number] 05/23/2021 06:59:00 AM EDT [facility] Name: SILVIA ALBERTO : 1965 A ge/Sex: 56F Ordering Provider: Jad Sommer MD Med Rec #: [id number] Reg Status: [facility] REF Room #: Date of Service: 05/22/21 Report Number: [id number] cc:SUMMER Salas; Jad Sommer MD Send Report To: [id number] CT/CT Chest No Contrast Reason for exam: ABNORMAL FINDING OF LUNG FIELD FINDINGS: The visualized portions of the thoracic inlet appear unremarkable. No enlarged axillary or mediastinal lymph nodes are identified. Scattered nonspecific, nonenlarged mediastinal lymph nodes are present. The ascending aorta is within normal limits measuring 3.3 cm. Atherosclerotic disease is identified in the aorta and coronary arteries. Heart appears unremarkable. Upper abdomen show a large left ventral hernia/ostomy. Bilateral infiltrates are identified. The infiltrates at the lung bases are similar to the prior study. Continued follow up to ensure resolution is recommended. IMPRESSION: Persistent bilateral infiltrates, not significantly changed as compared to the prior study. Probably secondary to COVID pneumonia. Continued follow up to ensure resolution is recommended. Pulmonary consultation may be helpful. REPORT DICTATED BY RENARD NEAL, REVIEWED AND SIGNED BY DR. SILVESTRE. While performing the above CT exam, the following dose reduction techniques wereused: *Automated exposure control *Adjustment of the mA and/or kV according to patient size *Use of iterative reconstruction technique CT Dose in mSv: 6.46 Contrast Agent in ml: Method of Administration: REPORT SIGNATURE ON FILE Reported By: Nathan Silvestre DO Electronically signed by: Nathan Silvestre DO 05/25/21 1125 Dictation Date/Time: 05/22/21 1435 Transcribed Date/Time: 05/23/21 0659 Special Needs Babysitter: JOURDAN Name Value Range Interpretation Code Description Data Maura rce(s) Supporting Document(s) ID Date Data Source [id number] 05/13/2021 11:38:00 AM EDT [facility] ([facility]) Name Value Range Interpretation Code Description Data Maura rce(s) Supporting Document(s) Laboratory test finding (navigational concept) Laboratory test r esult Normal (applies to non-numeric results) [facility] <content>This test was developed and its performance characteristics</content>
<content>determined by [facility]. It has not been cleared or</content>
<content>approved by the Food and Drug Admi nistration.</content>
<content>Negative: <20</content>
<content>Weak Positive: 20 - 39</content>
<content>Moderate Positive: 40 - 80</content>
<content>Strong Positive: > 80</content>
<content></content> ID Date Data Source [id number] 05/13/2021 11:38:00 AM EDT [facility] ([facility]) Name Value Range Interpretation Code Description Data Maura rce(s) Supporting Document(s) Smiths Antibody Laboratory test result 0.0-0.9 Normal (a pplies to non-numeric results) [facility] ([facility]) ROLL CONTOUR GRINDER Antibody 0.2 AI 0.0-0.9 Normal (applies to non-numeric res ults) [facility] ([facility]) ID Date Data Source [id number] 05/13/2021 11:38:00 AM EDT [facility] ([facility]) Name Value Range Interpretation Code Description Data Maura rce(s) Supporting Document(s) SCL-70 extractable nuclear Ab [Units/volume] in Serum Labora tory test result 0.0-0.9 Normal (applies to non-numeric results) [facility] ([facility]) RNA polymerase III Ab [Units/volume] in Serum Laboratory test re sult Normal (applies to non-numeric results) [facility] ([facility]) <content>Negative: <20 </content>
<content>Weak Positive: 20 - 39</content>
<content>Moderate Positive: 40 - 80</content>
<content>Strong Positive: > 80</content>
<content></content> Centromere IgG Ab [Units/volume] in Serum Laboratory test result 0.0-0.9 Normal (applies to non-numeric results) [facility] ([facility]) Laboratory test finding (navigational concept) Laboratory test r esult Normal (applies to non-numeric results) [facility] ([facility]) This test was developed and its performa nce characteristics determined by [facility]. It has not been cleared or approved by the Food and Drug Administration. Gwendolyn-1 extractable nuclear Ab [Units/volume] in Serum Laboratory t est result Normal (applies to non-numeric results) [facility] ([facility]) <content>Negative: <20 </content>
<content>Weak Positive: 20 - 39</content>
<content>Moderate Positive: 40 - 80</content>
<content>Strong Positive: > 80</content>
<content></content> Laboratory test finding (navigational concept) Laboratory test r esult Normal (applies to non-numeric results) [facility]) This test was developed and its performa nce characteristics determined by [facility]. It has not been cleared or approved by the Food and Drug Administration. Laboratory test finding (navigational concept) Laboratory test r esult Normal (applies to non-numeric results) [facility]) This test was developed and its performa nce characteristics determined by [facility]. It has not been cleared or approved by the Food and Drug Administration. Laboratory test finding (navigational concept) Laboratory test r esult Normal (applies to non-numeric results) [facility]) This test was developed and its performa nce characteristics determined by [facility]. It has not been cleared or approved by the Food and Drug Administration. Laboratory test finding (navigational concept) Laboratory test r esult Normal (applies to non-numeric results) [facility]) <content>This test was developed and its performance characteristics</content>
<content>determined by [facility]. It has not been cleared or</content>
<content>approved by the Food and Drug Admi nistration.</content>
<content>Negative: <20</content>
<content>Weak Positive: 20 - 39</content>
<content>Moderate Positive: 40 - 80</content>
<content>Strong Positive: > 80</content>
<content></content> Mi-2 Ab [Presence] in Serum Laboratory test result Normal (applies to non- numeric results) [facility]) This test was developed and its performa nce characteristics determined by [facility]. It has not been cleared or approved by the Food and Drug Administration. Laboratory test finding (navigational concept) Laboratory test r esult Normal (applies to non-numeric results) [facility]) <content>This test was developed and its performance characteristics</content>
<content>determined by [facility]. It has not been cleared or</content>
<content>approved by the Food and Drug Admi nistration.</content>
<content>Negative: <20</content>
<content>Weak Positive: 20 - 39</content>
<content>Moderate Positive: 40 - 80</content>
<content>Strong Positive: > 80</content>
<content></content> Laboratory test finding (navigational concept) Laboratory test r esult Normal (applies to non-numeric results) [facility]) <content>This test was developed and its performance characteristics</content>
<content>determined by [facility]. It has not been cleared or</content>
<content>approved by the [facility] and Drug Admi nistration.</content>
<content>Negative: <20</content>
<content>Weak Positive: 20 - 39</content>
<content>Moderate Positive: 40 - 80</content>
<content>Strong Positive: > 80</content>
<content></content> Laboratory test finding (navigational concept) Laboratory test r esult Normal (applies to non-numeric results) [facility] ([facility]) <content>This test was developed and its performance characteristics</content>
<content>determined by [facility]. It has not been cleared or</content>
<content>approved by the Food and Drug Admi nistration.</content>
<content>Negative: <20</content>
<content>Weak Positive: 20 - 39</content>
<content>Moderate Positive: 40 - 80</content>
<content>Strong Positive: > 80</content>
<content></content> Roca extractable nuclear Ab [Units/volume] in Serum Laboratory test result Normal (applies to non-numeric results) [facility] ([facility]) <content>Negative: <20 </content>
<content>Weak Positive: 20 - 39</content>
<content>Moderate Positive: 40 - 80</content>
<content>Strong Positive: > 80</content>
<content>Performed at: [facility]content>
<content>[address] [place] [id number]</content>
<content>Squad Boss: Nathan Frances MD, Phone: [phone]</content>
<content></content> Laboratory test finding (navigational concept) Laboratory test r esult Normal (applies to non-numeric results) [facility] ([facility], ) <content>This test was developed and its performance characteristics</content>
<content>determined by [facility]. It has not been cleared or</content>
<content>approved by the Food and Drug Admi nistration.</content>
<content>Negative: <20</content>
<content>Weak Positive: 20 - 39</content>
<content>Moderate Positive: 40 - 59</content>
<content>Strong Positive: > 59</content>
<content>.</content>
<content>Anti-HMGCR antibodies are specific for immune-mediated</content>
<content>necrotizing myopathy, most typically associated with</content>
<content>statin therapy. However, about 30% of patients with</content>
<content>anti-HMGCR positive myonecrosis have never been</content>
<content>exposed to statins (Beka COBOS et al. Arthritis Rheum</content>
<content>2012;64(12):5341-31).</content>
<content></content> ID Date Data Source [id number] 05/13/2021 11:38:00 AM NOET [facility] ([facility]) Name Value Range Interpretation Code Description Data Maura rce(s) Supporting Document(s) SSB Sjogrens B Laboratory test result 0.0-0.9 Normal (a pplies to non-numeric results) [facility] ([facility]) Ssa Sjogrens A Laboratory test result 0.0-0.9 Normal (a pplies to non-numeric results) [facility] ([facility]) ID Date Data Source [id number] 05/13/2021 11:38:00 AM EDT [facility] ([facility]) Name Value Range Interpretation Code Description Data Maura rce(s) Supporting Document(s) Creatine kinase [Enzymatic activity/volume] in Serum or Plasma 7 2 U/L 26-192 Normal (applies to non-numeric results) [facility] ([facility]) Aldolase [Enzymatic activity/volume] in Serum or Plasma 4.4 U/L 3.3-10.3 Normal (applies to non-numeric results) [facility] ([facility]) ID Date Data Source [id number] 05/13/2021 11:38:00 AM EDT [facility] ([facility]) Name Value Range Interpretation Code Description Data Maura rce(s) Supporting Document(s) Ariana (Hep2) Laboratory test result Abnormal (applies to non -numeric results) [facility] ([facility]) <content>Negative <1:80</content>
<content>Borderline 1:80</content>
<content>Positive >1:80</content>
<content></content> Laboratory test finding (navigational concept) Laboratory test r esult Normal (applies to non-numeric results) [facility] ([facility]) Laboratory test finding (navigational concept) Laboratory test r esult Normal (applies to non-numeric results) [facility] ([facility]) Laboratory test finding (navigational concept) Laboratory test r esult Normal (applies to non-numeric results) [facility] ([facility]) Laboratory test finding (navigational concept) Laboratory test r esult Normal (applies to non-numeric results) [facility] ([facility]) Laboratory test finding (navigational concept) Laboratory test r esult Normal (applies to non-numeric results) [facility] ([facility]) Laboratory test finding (navigational concept) Laboratory test r esult Normal (applies to non-numeric results) [facility] ([facility]) Laboratory test finding (navigational concept) Laboratory test r esult Normal (applies to non-numeric results) [facility] ([facility]) ICAP nomenclature: AC-11,12 Laboratory test finding (navigational concept) Laboratory test r esult Normal (applies to non-numeric results) [facility] ([facility]) Laboratory test finding (navigational concept) Laboratory test r esult Above high normal [facility] ([facility]) ICA nomenclature: AC-6,7 Laboratory test finding (navigational concept) Laboratory test r esult Normal (applies to non-numeric results) [facility] ([facility]) . For more information about Hep-2 cell [...] Nucleosomes, Histones Drug-induced SLE --------- Speckled Sm, ROLL CONTOUR GRINDER, SCL-70, SLE,MCTD,PSS (diffuse form), SS-A/SS-B Sjogrens --------- Nucleolar SCL-70, PM-1/SCL High titers Scleroderma, PM/DM --------- Centromere Centromere PSS (limited form) w/Crest syndrome variable --------- Nuclear Dot [id number] Primary Biliary Cirrhosis --------- Nuclear GP210, Primary Biliary Cirrhosis Membrane loulou A,B,C --------- Performed at: - [facility] [address] [id number] Squad Boss: Deb Smith MD, Phone: [phone] Performed at: - [facility] [id number] Squad Boss: Tree Moreland MD, Phone: [phone] Performed at: [facility] [address] [place] [id number] Squad Boss: Nathan Frances MD, Phone: [phone] Laboratory test finding (navigational concept) Laboratory test r esult Normal (applies to non-numeric results) [facility] ([facility]) ID Date Data Source [id number] 05/13/2021 11:38:00 AM EDT [facility] ([facility]) Name Value Range Interpretation Code Description Data Maura rce(s) Supporting Document(s) Cyclic citrullinated peptide IgG Ab [Units/volume] in Serum or Plasma 10 units 0-19 Normal (applies to non-numeric results) [facility] ([facility]) <content>Negative <20</con tent>
<content>Weak positive 20 - 39</content>
<content>Moderate positive 40 - 59</content>
<content>Strong positive >59</content>
<content></content> ID Date Data Source [id number] 05/13/2021 11:38:00 AM EDT [facility] ([facility]) Name Value Range Interpretation Code Description Data Maura rce(s) Supporting Document(s) Laboratory test finding (navigational concept) Laboratory test r esult Normal (applies to non-numeric results) [facility] ([facility]) ID Date Data Source [id number] 05/13/2021 11:38:00 AM EDT [facility] ([facility]) Name Value Range Interpretation Code Description Data Maura rce(s) Supporting Document(s) Erythrocyte sedimentation rate by Westergren method 68 mm/hr 0-30 Above high normal [facility] ([facility]) Rheumatoid factor [Units/volume] in Serum or Plasma Laboratory t est result Normal (applies to non-numeric results) [facility] ([facility]) ID Date Data Source [id number] 05/07/2021 02:36:00 PM EDT [facility]) Name Value Range Interpretation Code Description Data Maura rce(s) Supporting Document(s) PDFReport Laboratory test result [facility] FVC-Pred 3.26 L [facility] ([facility]) FVC-LLN 2.59 L [facility], ) FVC-Pre 2.85 L [facility] ([facility], ) FVC-%Pred-Pre 87 L [facility] ([facility], ) Fev1-%Pred-Pre 92 L [facility] ([facility], ) Fev1-Pre 2.35 L [facility] ([facility], ) Fev1-Pred 2.54 L [facility] ([facility], ) Fev1-LLN 1.97 L [facility] ([facility], ) Fev6-Pre 2.83 L [facility] ([facility], ) Fev6-Pred 3.16 L [facility] ([facility]) Mbj5jwc-Qukk 79 % [facility] ([facility]) Fev6-LLN 2.50 L [facility] ([facility], ) Fev6-%Pred-Pre 89 L [facility] ([facility], ) Mrm3ddm-%Pred-Pre 104 % [facility] ([facility]) Fct0qqq-Zeu 83 % [facility] ([facility]) Kjm9wyz-JDI 69 % [facility] ([facility]) Qaw7zdl-Bvia 97 % [facility] ([facility]) Quw2lsc-Kjb 100 % [facility] ([facility]) Ubf0xht-%Pred-Pre 102 % [facility] ([facility], ) FEFMax-Pre 5.21 L/E/sec [facility] ([facility], ) FEFMax-Pred 6.30 L/E/sec [facility] ([facility]) Nno3404-Gypg 2.42 L/E/sec [facility] ([facility]) FEFMax-%Pred-Pre 82 L/E/sec [facility] ([facility]) FEFMax-LLN 4.63 L/E/sec [facility] ([facility]) Eab2293-ZYE 1.22 L/E/sec [facility] ([facility] ) Dye3120-Jhp 2.42 L/E/sec [facility] ([facility]) Pyk9665-%Pred-Pre 100 L/E/sec [facility] ([facility]) Pgg6txz0-Tnjb 81 % [facility] ([facility]) ExpTime-Pre 7.31 sec [facility] ([facility]) Pkt3zit2-VAF 72 % [facility] ([facility]) Krv9xle9-Fvm 83 % [facility] ([facility]) Hzo0gdg9-%Pred-Pre 102 % [facility] ([facility]) ID Date Data Source [id number] 04/27/2021 10:34:00 AM EDT Osmar perez Exam Number: [id number] OF EXAMINATIO N: 04/27/2021 10:15 EDTCHEST, TWO VIEWSHISTORY: Lung infiltrateTECHNIQUE: PA and lateral radiographs of the chestCOMPARISON: 04/13/2021FINDINGS:Previously noted areas of parenchymal disease within both lower lobesare unchanged. Parenchymal disease along the peripheral aspect of leftmidlung has progressed. Heart is normal in size.IMPRESSION:Parenchymal disease bilaterally progressed along the periphery of leftmidlung consistent with pneumonia.Electronically signed in PS360 by: Jarvis Wilson M.D. 110:22 EDT Reported By: - Angela KELLER Signed By: Emmett WILSON M.D. Name Value Range Interpretation Code Description Data Maura rce(s) Supporting Document(s) ID Date Data Source [id number] 04/13/2021 11:38:00 AM EDT Osmar perez Exam Number: [id number] OF EXAMINATIO N: 04/13/2021 11:09 EDTCHEST, TWO VIEWSHISTORY: InfiltrateTECHNIQUE: PA and lateral radiographs of the chestCOMPARISON: 11/02/2019FINDINGS:Moderate parenchymal disease is seen at both lung bases consistentwith bronchopneumonia. Cardiac silhouette and pulmonary vascularity iswithin normal limits. There is no effusion.IMPRESSION:Moderate bibasilar parenchymal disease consistent with pneumonia.Electronically signed in PS360 by: Jarvis Wilson M.D. 111:26 EDT Reported By: Henrry WILSON M.D. Signed By: Emmett WILSON M.D. Name Value Range Interpretation Code Description Data Maura rce(s) Supporting Document(s) ID Date Data Source [id number] 04/12/2021 07:46:55 PM EDT [facility] Name Value Range Interpretation Code Description Data Maura rce(s) Supporting Document(s) Progress Note [facility] MUKBRx5nUhPDPiVy74/CHGynAUMlj4InQTcqZYa9TMguWULzO4CvFEY2pK9eXMD5DIwTWmQhZxSbILR8 lbm [file] ICAgICAgICAgICAgICAgICAgICAgICAgICAgICAgIC AgICAgICAgICAgICAgICAgICAgICAgICAgICAgICAgICAgICAgICAgICAgICANCiAgICAgICAgICAgIC AgICAgICAgICAgICAgICAgICAgICAgICAgICAgICAgICAgICAgICAgICAgICAgICAgICAgICAgICAgIC AgICAgICAgICAgICAgICAgICAgICAgICAgICANCiAg ICAgICAgICAgICAgICAgICAgICAgICAgICAgICAgICAgICAgICAgICAgICAgICAgICAgICAgICAgICAg ICAgICAgICAgICAgICAgICAgICAgICAgICAgICAgICAgICAgICANCiAgICAgICAgICAgICAgICAgICAg ICAgICAgICAgICAgICAgICAgICAgICAgICAgICAgIC AgICAgICAgICAgICAgICAgICAgICAgICAgICAgICAgICAgICAgICAgICAgICAgICANCiAgICAgICAgIC AgICAgICAgICAgICAgICAgICAgICAgICAgICAgICAgICAgICAgICAgICAgICAgICAgICAgICAgICAgIC AgICAgICAgICAgICAgICAgICAgICAgICAgICAgICAN CiAgICAgICAgICAgICAgICAgICAgICAgICAgICAgICAgICAgICAgICAgICAgICAgICAgICAgICAgICAg ICAgICAgICAgICAgICAgICAgICAgICAgICAgICAgICAgICAgICAgICANCiAgICAgICAgICAgICAgICAg ICAgICAgICAgICAgICAgICAgICAgICAgICAgICAgIC AgICAgICAgICAgICAgICAgICAgICAgICAgICAgICAgICAgICAgICAgICAgICAgICAgICANCiAgICAgIC AgICAgICAgICAgICAgICAgICAgICAgICAgICAgICAgICAgICAgICAgICAgICAgICAgICAgICAgICAgIC AgICAgICAgICAgICAgICAgICAgICAgICAgICAgICAg ICANCiAgICAgICAgICAgICAgICAgICAgICAgICAgICAgICAgICAgICAgICAgICAgICAgICAgICAgICAg ICAgICAgICAgICAgICAgICAgICAgICAgICAgICAgICAgICAgICAgICAgICANCiAgICAgICAgICAgICAg ICAgICAgICAgICAgICAgICAgICAgICAgICAgICAgIC AgICAgICAgICAgICAgICAgICAgICAgICAgICAgICAgICAgICAgICAgICAgICAgICAgICAgICANCjw/eH VsG2thhNGvpjZ9O7pdIs9UQw6ZSI9we3MxSHLhPAnsroJiFppPAbVbNNLnRgkJPyl0VJvqVK3AwEOxK4 ZcA0RuQTbgYK2WZFVkFWPjlKIbKEWsRJDaHgI2XELe THhhYK9VsCHlSXiyIXBpLCIlDdRgNAZsBIAgVXGnUEMdRTAEIA3XYoEkO9AobT21UIGPJe9+DQplbmRv AutONwC8AKGyk4UmUUs1CU8PFFGaKviww8EmQdrpYDQSAIlwZL1IIMP1MPK5TASdSq5GZNIeF393ihFb MM5QUo0JQtGkOL0wxs5WQqypXMLuAsuXOxl5XUugTW 7AlLNlSYaDyw7inwHyqtLRd0HihhPuuAVDmVW5oAOkUoEYiYvqlfweKFMxPZMxBZ3gTZ8mABKaNEYeTt H0DELJSP4QABCiARPzdWVeVAYiMVBUBH2EEIraHOB7YBJbyxLexSZkTEquYP7XLDOfpvLaHkuvLQCIDH o+Jr1TMT3np3YfSTmvRPNvRG7sao7SBRuZTeVjA0H9 jPEmG9C8LCwqOq9DVRYxBQHiVmIcPBMCJGfzDF0UWO2itpP2IX5NaYTqTUOzHULgjTRcEBm8R52ftHEt DRzuZN8BROY+Nadya+Mu4HZVHpRLUuJCGbEeCeEWAZSpIfD7SfQ1WQv8TiM7ImEF19oOuerpUrGTroGR1Q LS3xOQFuYKXEHO1RaSVbzA6qpnCyEIVfHAHKDbQqQ1 1blQRzPMWsGBY6REDlVy7GCGGhM2AcjiJpvKtwczUtEKIiLDZDXR9FCLplkcQirYIwyVwxUM05yPptLX 4TMz1JWmHjOJ3uwa7FoHZqIf2CKWPlDH7BGDGgCSQvJGQkTTR3QBFsOaMlZEkxAGLpIORnJKO5OIKdEA RrLG2BZaTuAYXtUja3NvQkPMLxBAUiwa0EMNKbCYXq IJN4GSVnYKLnYWHtTMfsAQLxQRIzNTK4KWZsBECdOM7BYpAjWJBuWVZ6YgSlZUIaNOExki8FBLRbOFUb OMxnWgKpNSCnLCMcSQqdWFFxOZS4TYD7MIRxUTGzKK4UUgJePLRoDVjuDDqtKYQpUMSeni4IQCLjEJKs INK0CFJiXKZeAYZoWPcdVBBxQMBnJEY4SYUbOUJpFG 9BLfNwCHHyHXPuEhNeUMBzRYHhzn9JKODwISEdHgL0JYZnWJVsNMOmXJbcKUGmCBJ2QdOdHBSpEHHqPO 1TZdTcRVGhGYP3OSnpEHDcWYHoqg2LKYCrUNAvQCU7MFVoRKDtNACwDKxtSWGyYDX2DtAhVAOsUUFlIM 0VWtPiPJRkJBP4RQShJIFiOGXfuf5JJNVoXSDjKeBd MMOjMOAaTKRkOBtvNFEvNFW9VUWaABScMHMdIA9OSlFhXIJsTpz2XWUbJLQcRFDhen4OPKZpJKElIlp1 YVNdYWDlZHYyXStzTGTwWTW7BwC6FWYbKSUvER9YBjGoQBOzRxuxKFVvBUIbSCTbed3EKGIhVPNsXFOi CgIgHZHfSTRdOHzfYZYbUAD1ZPK6SVQxICLpXI2LSc UvDLRpSdn6IYRrPQTvHYNibk5XPKUuUQRcAWYoMAXjZNLgNHSqEGvkWHAvCGFcRXu9BDHlTWYvWN7SLb ScRGItAyW5XGymSJEySJUqqi7AXPWyGBTfTAp1MuKxBSJoFKQwSKj9omCbcZKxXYj1ZI3WX4BcyeUpUi TPEp9Ba063XREjTNUbDo3ZR6eeIy6gWKYfWXBZNe6O UOd9GsRjAYQqT4N3FuDfBgCtG1B2FGQ4RKF5WNLwKiEnUuY+EVq6PbZuQYS0ESijQyP8MWZmNOkgExzc FfFoP7MtQqKzHv6uSANSPs9+PBqxtMTxcLjbYQDZFjRdXMDpBFjqMENEAf9O ID Date Data Source [id number] 04/02/2021 10:45:00 AM EDT [facility] Name Value Range Interpretation Code Description Data Maura rce(s) Supporting Document(s) Respiratory specimen severe acute respir atory syndrome coronavirus 2 (SARS-CoV-2) RNA Negative (qualifier value) [facility] This lab was ordered by [facility] jus and reported by [facility]. ID Date Data Source [id number] 04/03/2021 02:58:00 AM EDT [facility] COVID-19 Specimen Source NASOPHARYNGEAL Testing was performed using the [employer] SARS-CoV-2 Assay ([employer] Methodology: Nucleic Acid Amplification Pants Closer RT-PCR Mediated Amplification (TMA) and Dual Kinetic Assay (DKA) Negative results do not preclude SARS-CoV-2 infection and should not be used as the sole basis for patient management decisions. Negative results must be combined with clinical observations, patient history, and epidemiological information. This test has been authorized by FDA under an (Emergency Use Authorization) EUA for use by authorized laboratories for individuals who are suspected of COVID-19 by their healthcare provider. This test is only authorized for the duration of the declaration that circumstances exist justifying the authorization of emergency use of in vitro diagnostic tests for detection and/or diagnosis of SARS-CoV-2. Fact sheets for this EUA assay can be found at the following links EUA Fact Sheet for Providers: https://www.fda.gov/media/581276/download EUA Fact Sheet for Patients: https://www.fda.gov/media/902040/download THIS IS A STATE REPORTABLE COMMUNICABLE DISEASE. Test Performed By: [facility] [address] [place] [address] Director: Claire Roca MD Name Value Range Interpretation Code Description Data Maura rce(s) Supporting Document(s) ID Date Data Source [id number] 04/01/2021 12:06:00 PM EDT [facility] Name: SILVIA ALBERTO : 1965 A ge/Sex: 55F Ordering Provider: Haim Sams MD Med Rec #: [id number] Reg Status: REG REF Room #: Date of Service: 04/01/21 Report Number: [id number] cc:Haim Sams MD; SUMMER Salas Send Report To: [id number] CT/CT Abdomen & Pelvis w Con Reason for exam: S/P COLOSTOMY Comparison is made to a prior study from 01/12/2021. FINDINGS: The lung bases show bilateral infiltrates suspicious for possible COVID pneumonia. Clinical correlation is recommended. The heart appears unremarkable. The liver appears unremarkable. The gallbladder is surgically absent. The spleen is within normal limits. Bilateral adrenal glands, pancreas and kidneys appear unremarkable. No hydronephrosis or nephrolithiasis is identified. The appendix is visualized and appears unremarkable. There is a colostomy identified in the l eft lower quadrant. This does not appear significantly changed as compared to the previous examination. The urinary bladder appears unremarkable. No free fluid is identified in the pelvis. Osseousstructures show prominent degenerative changes. IMPRESSION: Bibasilar infiltrates worrisome for possible COVID. Clinical correlation is recommended. Colostomy in the left lower quadrant appears unchanged. Normal appendix. Status post cholecystectomy. No free fluid. REPORT DICTATED BY RENARD NEAL, REVIEWED AND SIGNED BY DR. GARG. While performing the above CT exam, the following dose reduction techniques wereused: *Automated exposure control *Adjustment of the mA and/or kV according to patient size *Use of iterative reconstruction technique CT Dose in mSv: 15.99 Contrast Agent in ml: Isovue 300 100 Method of Administration: Intraveneous REPORT SIGNATURE ON FILE Reported By: Renard Garg MD Electronically signed by: Renard Garg MD 04/01/21 1502 Dictation Date/Time: 04/01/21 0925 Transcribed Date/Time: 04/01/21 1206 Special Needs Babysitter: MAGDALENO Name Value Range Interpretation Code Description Data Maura rce(s) Supporting Document(s) ID Date Data Source [id number] 01/12/2021 09:03:00 AM EDT [facility] Name: SILVIA ALBERTO : 1965 Age/Sex: 55F Admitting Physician: Colin Dumont MD Attending Physician: Colin Dumont MD Med Rec #: [id number] Admission Date:11/07/20 Room #: 307-1 Discharge Date:11/14/20 Report Number: [id number] _ cc: SUMMER Salas Send Report To: Report Status - Signed DISCHARGE SUMMARY DATE OF ADMISSION: 11/09/20 DATE OF DISCHARGE: 11/14/20 The patient was admitted after a very complex hospital course at which time she was found to have a diverticular abscess with free air and sent to [facility] where she was operated on. She underwent a very complex postoperative course and eventually was discharged after her rehab on October 08, 2020. She now comes into the emergency room with a CT of the abdomen and pelvisshowing a lower abdominal abscess with track going to the anterior wall where she was admitted to the hospital for surgical consultation and management of theabscess. An IR screen was done by Dr. Garg in radiology and the incision wasopened up at the bed side to control the local wounds. He was kept in the hospital with her drain in place and has been rescanned number of times and multiple packings done on her anterior abdominal wall. ID was consulted for herantibiotic therapy and she was discharged home on all of her prehospital medications with her IR drain in place and she was discharged home on Unasyn 3 grams IV every six hours for ten days with the plan of transitioning to po once the drain is able to be removed. She will follow up with me in the office for management of her drain and her incision postoperatively. She was taught herself to do dressing changes with Aquacel AG and will do those daily and follow up with me in the office. Her colostomy is still in place. That will be managed by her surgeon from her colostomy with [facility] Dr. Sams but will see me in the office for management of her abscess we will hope to keep her locally. All of her questions were answered and she was given instructions if her condition should decompensate she should present to the emergency room again. She understands all of this. REPORT SIGNATURE ON FILE Dictated By: Colin Dumont MD <Electronically signed by Colin Dumont MD> 02/20/21 0941 Dictation Date/Time: 01/11/212202 Transcribed Date/Time: 01/12/21 0903[facility] Name Value Range Interpretation Code Description Data Maura rce(s) Supporting Document(s) ID Date Data Source [id number] 02/17/2021 12:50:27 PM EDT [facility] Name Value Range Interpretation Code Description Data [facility] rce(s) Supporting Document(s) Progress Note [facility] TIYBOt2cEtWEUwAp28/UGNyjEMCui7MxBJecAVj7DXnqZFSrI8McWUN9mN1jIOK9QPwFVsZlHgLmZEJa [facility] [file] AgICAgICAgICAgICAgICAgICAgICAgICAgICAgICAgICAgICAgICAgICAgICAgICAgICAgICAgICAgIC AgICAgICAgICAgICAgICAgICAgICAgICAgICAgICAgICAgICAgICANCiAgICAgICAgICAgICAgICAgIC AgICAgICAgICAgICAgICAgICAgICAgICAgICAgICAg ICAgICAgICAgICAgICAgICAgICAgICAgICAgICAgICAgICAgICAgICAgICAgICAgICANCiAgICAgICAg ICAgICAgICAgICAgICAgICAgICAgICAgICAgICAgICAgICAgICAgICAgICAgICAgICAgICAgICAgICAg ICAgICAgICAgICAgICAgICAgICAgICAgICAgICAgIC ANCiAgICAgICAgICAgICAgICAgICAgICAgICAgICAgICAgICAgICAgICAgICAgICAgICAgICAgICAgIC AgICAgICAgICAgICAgICAgICAgICAgICAgICAgICAgICAgICAgICAgICANCiAgICAgICAgICAgICAgIC AgICAgICAgICAgICAgICAgICAgICAgICAgICAgICAg ICAgICAgICAgICAgICAgICAgICAgICAgICAgICAgICAgICAgICAgICAgICAgICAgICAgICANCiAgICAg ICAgICAgICAgICAgICAgICAgICAgICAgICAgICAgICAgICAgICAgICAgICAgICAgICAgICAgICAgICAg ICAgICAgICAgICAgICAgICAgICAgICAgICAgICAgIC AgICANCiAgICAgICAgICAgICAgICAgICAgICAgICAgICAgICAgICAgICAgICAgICAgICAgICAgICAgIC AgICAgICAgICAgICAgICAgICAgICAgICAgICAgICAgICAgICAgICAgICAgICANCiAgICAgICAgICAgIC AgICAgICAgICAgICAgICAgICAgICAgICAgICAgICAg ICAgICAgICAgICAgICAgICAgICAgICAgICAgICAgICAgICAgICAgICAgICAgICAgICAgICAgICANCiAg ICAgICAgICAgICAgICAgICAgICAgICAgICAgICAgICAgICAgICAgICAgICAgICAgICAgICAgICAgICAg ICAgICAgICAgICAgICAgICAgICAgICAgICAgICAgIC AgICAgICANCiAgICAgICAgICAgICAgICAgICAgICAgICAgICAgICAgICAgICAgICAgICAgICAgICAgIC AgICAgICAgICAgICAgICAgICAgICAgICAgICAgICAgICAgICAgICAgICAgICAgICANCjw/kWGiN8uvdZ YgecW8E9yrXf2WTz0OJJ1ml6QqIIQoVVyepyDmOqlN XuHaLNHnXenTMww3IIusPJ7WeKBsG2SkD7ZlEElyNN1SUOEbNWGiiHQtTKDnKVRaZvG8OQHeSHttDH8A oYHzQIbnWCMvKPFeJtTjEJIfYVMbKTJbNLErQDPPCUSmQFVaNkWnBViwOK2Vh9JsnJB2BPb+Yr5EOX1a l7UdEHcnNBEiAO3chc4IGZgGYrRkE7RnguM9DOZpRZ OmLa9JSEXoJMPfaYWxTFKlVEZRNlZxH5FpiN40BVVFAj9+ZCoxgpEzIoiNZjHySSNtl2LoCNj1ND7MMU VaUIj6rKFdFXQjN8Jaj8TyGw74ABGmYywzSh6mXGOiDSTyVaIaMO02tK8eCHHNUOWxgWW1MsNgOgPzSr CuHLD0FyBlRJ8cJXimDK4WNVS0FYpqEYNcYWLgF5tR RnKiFCDyBRBjyBcoFW9PRlEsC9ZjsiInrCQsJWJoKMMSFc9+FKhscuMxYlpYDvBdBUNpx0TxUUq1PR3V DQFiFHomZP6GXJAshD6qLCfiKN2DBuQoNVAhWPTRLsHmC95izPZbSCd1O6MaUtLtDCDaUhztACVhETqj TmFtZXMgWyBdDQogID4+ID4+BOeePG8FUAqrthHxWL SwSo7SNWFpHVDsXP0hFPRmSUGzH3E1vPioSCGLWqFmV5oqjqyjAD8zNAVxM250dShuqhZjBSIyYSWxQc 3SOEJkBKL9XTOtlCUpAfugNEVHJHpqCM1OjXIdKOR6zA4vTXbiWPJqLCQlT2lZNnXgqGiyOE54pTatgj VsbCBdDQo+Jb2XJI1gi0WmOEj9vbMxXVkqOGZaLOtk YLHaFTAgJHVeSJR5FPC1BTQALdGlLSHlTMSyLIdiLUIsGYKdvl6ULANgAYE1KOU0WLRwJBZeLOTyHOay KNBiDSGjNMM5THAbKZRxXH6FSrJoSSUnMSFaFIbjTYMkIIGugi1GWZAtPJQaTcmoFIIuRNToVAFiZCyx MCRvSUM7JAT6CYEaFBNxBR4DUpGjNWFaHJkkVMjjZS GpBMBmht7ZGESdOBXzBxK8PrYwUMWzSULuRZfkBNUrKPRlKosdQATiQRAcTG3ZZyBdQVQgCUO8KIwkUG AuMQOqrg1DLBXlTNHgLmQ3HIOiKJPaKGMhPQarONAfPIBtMYX7GALuFYFhCW6SZyKaXBAaMDK1CxCsEY RiQQPmra3LFWInXJEtHSQjISSrYXLdLPUlPVlsJBAr LFJ6SVk9QVHsSOMmXN0ZJkNuQNKrJAHuFPTuFYGzCEYojs9BGTMzVBOkOoA9TYLmIFKrMUWnCTzpFMPj NMH3NkM2HQKqQZPwXE9QSkDpSMEfGHe5CeQsNOBaRHMgwb1ZXALrFYXgBcnxXSDeCCIbRKIeGVzuQVNt TGY9LqJrNFLyWFOsRC4PQaAmKEPtBMu5LFHzUDQmBE Zwza8SHHMzCNV0ZRVwVNVdPMJhDJLuRQdcWLVcPVP1VMMsPWFoVPLwQD4BTlAtEGOjMGf5BKezBPTwSO Nzyi6GKAWsLSN4CRlgFxOpPNZfEEXtJOtyCULuMPHlJOscSXCaJQNhNA8IZhBqAJOjJUTjPkawMCBmHR Fzru1WIBNxEWJ2TYD0PfFkOOUaNXKqMNvrOGVsTIFg KQTdJPMgIFVsYN5AVcKbKTGiRWQkJwRyXPQyMJYvns8EPOCtPXB5HwL0LJOuXIZfOHFnYUq1omQojVGp AFf9TT0KT4IcvbThTmYHKi3Xz318PEOkOIXgCq4EJ1hgCm1wUUFnPNPMLi6CNKx2SHOjC1DoCYTcIUKj MWNmOWEzMzRlZjQwZDUwNWUxMzQ+IDxhZTEzYzExNj J3SFRqE0E4NCLhUASbFJNtXEU7ZAGxOH0jHXRDWz9+UJyiaEGacFsaHFIWQgLsYdI8KEhbCUFVCd4H ID Date Data Source [id number] 01/13/2021 11:26:00 AM EDT [facility] Name: SILVIA ALBERTO : 1965 A ge/Sex: 55F Ordering Provider: SUMMER Mayfield Med Rec #: [id number] Reg Status: DEP REF Room #: Date of Service: 01/12/21 Report Number: [id number] cc:SUMMER Mayfield; SUMMER Salas Send Report To: [id number] CT/CT Abdomen & Pelvis w Con Reason for exam: PERFORATED DIVERTICULITIS WITH INTRA-ABDOMINAL ABSCESS Comparison is made to 12/10/2020 FINDINGS: No acute changes are noted at the lung bases. The liver, spleen, adrenal glands, kidneys and pancreas are unchanged in this patient status post cholecystectomy. There is no intra or retroperitoneal adenopathy by CT size criteria. There is mild aortoiliac calcification. Evaluation of the pelvis does not demonstrate free fluid. The previously noted pelvic percutaneous drainage catheter with the tip in an abscess in the pelvis now has the tip in the subcutaneous tissues. The abscess has essentially resolved and thus the catheter will be removed. 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 There is marked retained feces throughout the colon limiting evaluation. Incomplete distentionand opacification further limits evaluation. There is no CT evidence of inflammatory bowel disease. Again, the pelvic abscess is essentially resolved. IMPRESSION: Essentially complete resolution of the previously noted pelvic abscess. Percutaneous catheter tip is now in subcutaneous tissues and will be removed. While performing the above CT exam, the following dose reduction techniques wereused: *Automated exposure control *Adjustment of the mA and/or kV according to patient size *Use of iterative reconstruction technique CT Dose in mSv: 14.24 Contrast Agent in ml: Isovue 300 100 Method of Administration: Intraveneous REPORT SIGNATURE ON FILE Reported By: James Marcelino MD Electronically signed by: James Marcelino MD 01/13/21 1503 Dictation Date/Time: 01/12/21 1639 Transcribed Date/Time: 01/13/21 1126 Special Needs Babysitter: EDWIGE Name Value Range Interpretation Code Description Data Maura rce(s) Supporting Document(s) ID Date Data Source [id number] 12/30/2020 03:08:16 PM EDT [facility] Name Value Range Interpretation Code Description Data Maura rce(s) Supporting Document(s) Progress Note [facility] HNLLDz1vZeNNKgDj11/WOSedQYFmg1SyBPasOQh6LCjyAEVcU9ThYSN3gL3cAKT7TZmPNkSfGjShKnB9 lbm ThSncHBfPwCCLfXosPTcMaNVbmWwhxzSIaDR9GlUO4AKNcO45mEPPgUFFqS0OmOGC4Lfw+Rg7WLZEhiP YiES4DJsqK2H5tn8fHXp8+oF6QTtbXd6mA4ufCOO1vZ1w0NLpj5eNjlIeYMaQjHeXGwdCs/u+Gs5WcCu 9+3TpfKW4XwMSnz6iQrr1xg2oipt/+QXjiv0pPxZ2h fg1jR/TG4q9/CtubszSOexmCVVNQDNDmkz3I5r+u/zDCd3tk8KOGRUHku82FFyEDzHNKqCYkat5s3uG2 /Z+sRokmNuLaXT15CbRo8JpABjOsiZHpG1Mlhsl+LUIS+1SMYRLwzL0MiwM7zWXHYYg9RpZSb/UENBmED XjZzW/N9KqmBz3JyeaFTUqaD7LtbWaZlej0sQU/dil 85n6v9Ai2z0No9XkQIEDGlXhoBfcvgGzmfLkdx3p4k8cpCr/q3FDhVg1Qxsq/Z6l9qz0R1ZFJ6Kkr1ML G2EwPErX1GbFZD58PoEIS5aah7cPlx4N1AyxW4ErmYU6u+O5qxqKwCw3iu743CsgkNS10Wf2JCDupH+e vJiLYApEZb2OwBo2bLMe4WdudIy2B/1SC7M+24UamX sRPfg0XuoCU1kRCwhk6LT+qSRXJ0ngj9a2RzrWnD0KdqiVHGbxL9bSKtasgKTasgSjU5Tkv5lf0GIvI3 AfotW9sZmMO/X35eOhVhRN9rLFh18zt0U2+rtZ7syTkRTKoqrLmlIPPS4EMNWHpyEqxzq6+zxo3ixqn0 dxlXAn/HGorLPLQSpodFbjA+S+Stfmz/WRTEzwLLis [file] [id number]= ID Date Data Source [id number] 12/11/2020 11:45:00 AM EDT [facility] Name: SILVIA ALBERTO : 1965 A ge/Sex: 55F Ordering Provider: Colin Dumont MD [facility] Rec #: [id number] Reg Status: DEP REF Room #: Date of Service: 12/10/20 Report Number: [id number] cc:SUMMER Salas; Colin Dumont MD Send Report To: [id number] CT/CT Pelvis No Contrast Reason for exam: FISTULOGRAM FINDINGS: CT fistulogram through the catheter does demonstrate a fistulous tract extending anteriorly to the anterior abdominal wall where there are some matted small bowel loops just in that region. The contrast then fills with small subcutaneous region outside of the abdominal cavity and that area that thecontrast fills has a height of approximately 1.5 cm. We will leave the catheterin place. 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 I CANNOT CLEARLY DEFINITE ANY DEFINITE CONTRAST EXTENDING INTO SMALL BOWEL LOOPS. CATHETER WILL BE LEFT IN PLACE. Report recalled. Exam edit made. Body of report unchanged. JOSIE.GRADE [id number] While performing the above CT exam, the following dose reduction techniques wereused: *Automated exposure control *Adjustment of the mA and/or kV according to patient size *Use of iterative reconstruction technique CT Dose in mSv: 20.97 Contrast Agent in ml: Method of Administration: REPORT SIGNATURE ON FILE Reported By: Renard Garg MD <Electronically signed by Raimundo Garg MD> 12/22/20 1202 Dictation Date/Time: 12/10/20 0619 Transcribed Date/Time: 12/11/20 1145 Special Needs Babysitter: RAFY Name Value Range Interpretation Code Description Data Maura rce(s) Supporting Document(s) ID Date Data Source [id number] 12/11/2020 07:01:00 AM EDT [facility] Name: SILVIA ALBERTO : 1965 A ge/Sex: 55F Ordering Provider: Colin Dumont MD Med Rec #: [id number] Reg Status: DEP REF Room #: Date of Service: 12/10/20 Report Number: [id number] cc:SUMMER Salas; Colin Dumont MD Send Report To: [id number] CT/CT Abdomen & Pelvis w Con Reason for exam: ABSCESS CHECK FINDINGS: The lung bases are clear. The liver and spleen appear normal. The adrenals and kidneys appear normal. Gallbladder has been removed. Left lower quadrant ostomy is in place. Pancreas appears normal. Bowel loops demonstrate amoderate amount of stool in the colon. Central catheter is again identified in the supravesical location and there are no signs of any persistent abscess. The catheter does appear to be communicating with a track that extends to the anterior abdominal wall and there is still one trace fluid c ollection identifiedin that anterior abdominal wall measuring about 2 cm in height with a AP dimension of 5 mm. There is still some drainage from that catheter. I recommendperforming a fistulogram to see this track is communicating with a bowel loop which is matted to the anterior abdominal wall. These results were discussed with Dr. Colin Dumont at the time of this dictation. IMPRESSION: Collapse of the abscess cavity. There is still suggesting of a possible fistula to the anterior abdominal wall and the catheter is still draining. I am concerned that fistulous track may be communicating w ith some matted small bowel loops against the anterior abdominal wall. Fistulogram with CT will be performed. To view CT Pelvis images/report, see no charge exam same DOS. Report recalled. Exam edit made. Body of report unchanged. JOSIE.GRADE [id number] While performing the above CT exam, the following dose reduction techniques wereused: *Automated exposure control *Adjustment of the mA and/or kV according to patient size *Use of iterative reconstruction technique CT Dose in mSv: 14.385 Contrast Agent in ml: Isovue 300 100 Method of Administration: Intraveneous REPORT SIGNATURE ON FILE Reported By: Renard Garg MD <Electronically signed by Raimundo Garg MD> 12/22/20 1202 Dictation Date/Time: 12/10/20 1317 Transcribed Date/Time: 12/11/20 0701 Special Needs Babysitter: JOURDAN Name Value Range Interpretation Code Description Data Maura rce(s) Supporting Document(s) ID Date Data Source [id number] 12/11/2020 07:01:00 AM EDT [facility] Name: SILVIA ALBERTO : 1965 A ge/Sex: 55F Ordering Provider: Colin Dumont MD Med Rec #: [id number] Reg Status: DEP REF Room #: Date of Service: 12/10/20 Report Number: [id number] cc:SUMMER Salas; Colin Dumont MD Send Report To: [id number] CT/CT Abdomen & Pelvis w Con Reason for exam: ABSCESS CHECK Technique: Using dedicated [employer] [place]ia, 3D reconstruction imaging and raw data collection from 128-slice contrast-enhanced CT, the examination was performed. FINDINGS: The lung bases are clear. The liver and spleen appear normal. The adrenals and kidneys appear normal. Gallbladder has been removed. Left lower quadrant ostomy is in place. Pancreas appears normal. Bowel loops demonstrate amoderate amount of stool in the colon. Central catheter is again identified in the supravesical location and there are no signs of any persistent abscess. The catheter does appear to be communicating with a track that extends to the anterior abdominal wall and there is still one trace fluid collection identifiedin that anterior abdominal wall measuring about 2 cm in height with a AP dimension of 5 mm. There is still some drainage from that catheter. I recommendperforming a fistulogram to see this track is communicating with a bowel loop which is matted to the anterior abdominal wall. These results were discussed with Dr. Colin Dumont at the time of this dictation. IMPRESSION: Collapse of the abscess cavity. There is still suggesting of a possible fistula to the anterior abdominal wall and the catheter is still draining. I am concerned that fistulous track may be communicating with some matted small bowel loops against the anterior abdominal wall. Fistulogram with CT will be performed. While performing the above CT exam, the following dose reduction techniques wereused: *Automated exposure control *Adjustment of the mA and/or kV according to patient size *Use of iterative reconstruction technique CT Dose in mSv: 14.385 Contrast Agent in ml: Isovue 300 100 Method of Administration: Intraveneous REPORT SIGNATURE ON FILE Reported By: Renard Garg MD <Electronically signed by Raimundo Garg MD> 12/11/20 0838 Dictation Date/Time: 12/10/20 1317 Transcribed Date/Time: 12/11/20 0701 Special Needs Babysitter: JOURDAN Name Value Range Interpretation Code Description Data Maura rce(s) Supporting Document(s) ID Date Data Source [id number] 12/04/2020 01:07:00 PM EDT [facility] Name Value Range Interpretation Code Description Data Maura rce(s) Supporting Document(s) ESR 21 MM/HR 0-20 [facility] ID Date Data Source [id number] 12/04/2020 12:56:00 PM EDT [facility] Name Value Range Interpretation Code Description Data Maura rce(s) Supporting Document(s) C-REACTIVE PROT 0.63 mg/dL 0.00-0.49 [facility] ID Date Data Source [id number] 12/04/2020 12:51:00 PM EDT [facility] Name Value Range Interpretation Code Description Data Maura rce(s) Supporting Document(s) GLU 85 mg/dL 70-110 [facility] Patients taking Sulfasalazine may have f alsely depressedGlucose levels. Patients taking Sulfapyridine may havefalsely elevated Glucose levels. Patients should be drawnfor Glucose before the initial administration of eitherdrug. BUN 13 mg/dL 7-23 [facility] CRE 0.734 mg/dL 0.500-1.300 [facility] GFR > 60 mL/min [facility] CHLORIDE 107 mmol/L 99-110 [facility] NA 143 mmol/L 136-147 [facility] POTASSIUM 4.5 mmol/L 3.5-5.1 [facility] TCO2 29 mmol/L 20-33 [facility] ANION GAP 11.5 10.0-20.0 [facility] CA 9.3 mg/dL 8.3-10.7 [facility] ALKALINE PHOS 76 U/L 45-117 [facility] TP 7.1 g/dL 6.0-7.8 [facility] ALB 3.0 g/dL 3.5-5.0 [facility] ESRD Dialysis patient Albumin reference range: 2.9-4.4 g/dL GL 4.1 g/dL 2.3-3.5 [facility] A/G 0.7 1.0-2.5 [facility] T. BILIRUBIN 0.2 mg/dL 0.1-1.1 [facility] The Dimension [place] Total Bilirubin is n ot recommended forpatients undergoing treatment with eltrombopag (Promacta)due to the potential for falsely elevated results. ALTI 17 U/L 6-54 [facility] Patients taking Sulfasalazine and/or Sul fapyridine may havefalsely depressed ALT levels. Patients should be drawn forALT before the initial administration of either drug. AST 19 U/L 6-38 [facility] Patients taking Sulfasalazine and/or Sul fapyridine may havefalsely depressed AST levels. Patients should be drawn forAST before the initial administration of either drug. ID Date Data Source [id number] 12/04/2020 12:46:00 PM EDT [facility] Name Value Range Interpretation Code Description Data Maura rce(s) Supporting Document(s) WBC 5.39 x10E3/uL 4.0-10.5 [facility] RBC 4.54 x10E6/uL 4.20-5.40 [facility] Hemoglobin 12.0 g/dL 12.0-16.0 [facility] Hematocrit 39.1 % 37.0-47.0 [facility] MCV 86.1 fL 81.0-99.0 [facility] MCH 26.4 pg 27.0-31.0 [facility] MCHC 30.7 g/dL 32.7-35.6 [facility] RDW 17.2 % 11.5-14.0 [facility] Platelet count 301 x10E3/uL 150-450 [facility] ital MPV 9.6 fl 6.9-9.5 [facility] SEG. NEUTROPHIL 47 % 34-64 [facility] LYMP[facility]OC[facility]TE 27 % 25-45 [facility] EOSINOPHILS 15 % 0-7 [facility] MONOCYTES 11 % 2-10 [facility] PLATELET MORPH 1+ PLT SIZE VARIES [facility] PLATELET MORPHOLOGY EXPECTED RESULT:NORM AL = NO REMARKABLE MORPHOLOGYAny findings other than Normal will be reported and areconsidered Abnormal. The significance of Abnormal findingsare to be clinically correlated by the provider. ID Date Data Source [id number] 11/28/2020 05:47:00 PM EDT [facility] Name: SILVIA ALBERTO : 1965 A ge/Sex: 55F Ordering Provider: Colin Dumont MD Med Rec #: [id number] Reg Status: DEP REF Room #: Date of Service: 11/28/20 Report Number: [id number] cc:SUMMER Salas; Colin Dumont MD Send Report To: [id number] CT/CT Abdomen & Pelvis No Contras Reason for exam: INTRAABDOMINAL ABSCESS FINDINGS: The lung bases demonstrate some minimal scarring in the left lower lobe. The liver and spleen appear normal. The gallbladder has been removed. The adrenals and kidneys area normal. The pancreas is within normal limits. The pancreas shows no abnormalities. The left lower quadrant ostomy is again identified. Left midline drain is again noted to be in good position and he abscess cavity is collapsed. There is still, however, approximately 20 ml of drainage per day from the cavity. Because of that we will leave the drain in place and then reassess this next week for removal of the drain. Bowel loops within normal limits. Bladder appears normal. IMPRESSION: Abscess cavity is collapsed but there is still drainage of about 20ml per day. We will reassess this next week. Fluoroscopy time in seconds: Number of Exposures: Time Portable Image Performed: Contrast Agent in ml: Method of Administration: REPORT SIGNATURE ON FILE Reported By: Renard Garg MD <Electronically signed by Raimundo Garg MD> 12/01/20 0852 Dictation Date/Time: 11/28/20 0959 Transcribed Date/Time: 11/28/20 174 Special Needs Babysitter: CARLOS Name Value Range Interpretation Code Description Data Maura rce(s) Supporting Document(s) ID Date Data Source [id number] 11/26/2020 11:40:00 AM EDT [facility] Name: SILVIA ALBERTO : 1965 A ge/Sex: 55F Ordering Provider: Colin Dumont MD Med Rec #: [id number] Reg Status: DEP REF Room #: Date of Service: 11/25/20 Report Number: [id number] cc:SUMMER Salas; Colin Dumont MD Send Report To: [id number] CT/CT Abdomen & Pelvis No Contras Reason for exam: INTRA- ABDOMINAL ABSCESS FINDINGS: Lung bases are clear. The liver, spleen, and adrenals appear normal. Right and left kidneys appear normal. Left lower quadrant ostomy noted. The pancreas is within normal limits. Gallbladder has been removed. Drainage catheter again noted in the fluid collection in the supravesical location. Thatfluid collection is almost completely gone and now just has a few flecks of air and fluid within it. It measures about 1.4 x 1.2 cm. We will let this continue to drain since it is still putting about 20 cc of a day out. No other significant findings. IMPRESSION: DRAIN IS STILL PUTTING OUT ABOUT 20 CC A DAY, THUS WE WILL LEAVE IT IN PLACE. FLUID COLLECTION IS ALMOST COMPLETELY GONE. While performing the above CT exam, the following dose reduction techniques wereused: *Automated exposure control *Adjustment of the mA and/or kV according to patient size *Use of iterative reconstruction technique CT Dose in mSv: 11.679 Contrast Agent in ml: Method of Administration: REPORT SIGNATURE ON FILE Reported By: Renard Garg MD <Electronically signed by Raimundo Garg MD> 11/26/20 1404 Dictation Date/Time: 11/25/20 0301 Transcribed Date/Time: 11/26/20 1140 Special Needs Babysitter: RAFY Name Value Range Interpretation Code Description Data Maura rce(s) Supporting Document(s) ID Date Data Source [id number] 11/24/2020 05:22:00 PM EDT [facility] Name Value Range Interpretation Code Description Data [facility] rce(s) Supporting Document(s) GLU 123 mg/dL 70-110 [facility] Patients taking Sulfasalazine may have f alsely depressedGlucose levels. Patients taking Sulfapyridine may havefalsely elevated Glucose levels. Patients should be drawnfor Glucose before the initial administration of eitherdrug. BUN 9 mg/dL 7-23 [facility] CRE 0.911 mg/dL 0.500-1.300 [facility] GFR > 60 mL/min [facility] CHLORIDE 107 mmol/L 99-110 [facility] NA 144 mmol/L 136-147 [facility] POTASSIUM 3.2 mmol/L 3.5-5.1 [facility] TCO2 30 mmol/L 20-33 [facility] ANION GAP 10.2 10.0-20.0 [facility] CA 8.9 mg/dL 8.3-10.7 [facility] ALKALINE PHOS 64 U/L 45-117 [facility] TP 7.1 g/dL 6.0-7.8 [facility] ALB 2.9 g/dL 3.5-5.0 [facility] ESRD Dialysis patient Albumin reference range: 2.9-4.4 g/dL GL 4.2 g/dL 2.3-3.5 [facility] A/G 0.7 1.0-2.5 [facility] T. BILIRUBIN 0.2 mg/dL 0.1-1.1 [facility] The Dimension [place] Total Bilirubin is n ot recommended forpatients undergoing treatment with eltrombopag (Promacta)due to the potential for falsely elevated results. ALTI 13 U/L 6-54 [facility] Patients taking Sulfasalazine and/or Sul fapyridine may havefalsely depressed ALT levels. Patients should be drawn forALT before the initial administration of either drug. AST 17 U/L 6-38 [facility] Patients taking Sulfasalazine and/or Sul fapyridine may havefalsely depressed AST levels. Patients should be drawn forAST before the initial administration of either drug. ID Date Data Source [id number] 11/24/2020 05:06:00 PM EDT [facility] Name Value Range Interpretation Code Description Data Maura rce(s) Supporting Document(s) WBC 5.72 x10E3/uL 4.0-10.5 [facility] RBC 4.20 x10E6/uL 4.20-5.40 [facility] Hemoglobin 11.0 g/dL 12.0-16.0 [facility] Hematocrit 36.7 % 37.0-47.0 [facility] MCV 87.4 fL 81.0-99.0 [facility] MCH 26.2 pg 27.0-31.0 L [facility] MCHC 30.0 g/dL 32.7-35.6 L [facility] RDW 16.9 % 11.5-14.0 H [facility] Platelet count 308 x10E3/uL 150-450 [facility] ital MPV 10.3 fl 6.9-9.5 [facility] Neutrophils 57.7 % 34-64 [facility] Lymphocytes 24.3 % 25-45 [facility] Monocytes 9.8 % 1.7-10.6 [facility] Eosinophils 7.3 % 0.4-7.0 [facility] Basophils 0.7 % 0.1-2.0 [facility] Imm. Gran. 0.2 % 0.1-2.0 [facility] Abs. Neutro. 3.30 x10E3/uL 1.2-7.6 [facility] Abs. Lymph. 1.39 x10E3/uL 1.0-3.5 [facility] Abs. Treasure. 0.56 x10E3/uL 0.1-1.0 [facility] Abs. Eosin. 0.42 x10E3/uL 0.1-0.7 [facility] Abs. Baso. 0.04 x10E3/uL 0.0-0.1 [facility] Abs. Imm. Gran. 0.01 x10E3/uL 0.0-0.1 [facility] ANRBC% 0 % 0 [facility] ID Date Data Source [id number] 11/24/2020 12:15:00 PM EDT [facility] SHARON Sam [facility] [address] [place] [address] [id number] FOLLOW UP NOTENAME: SILVIA ALBERTO SPHYSICIAN: LUIS ARENAS, MDDATE OF SERVICE: 11/24/20DATE OF : 63ACCOUNT #: [id number]: SILVIA ALBERTODate: November 241DOB: 1965Physician: Luis L Areans, M.D.Age: 55Note Title: Follow UpDiagnosis:Primary - C50.412 - Malignant neoplasm of upper-outer quadrant of left femalebreast, Diagnosed Oct 22, 2019 (Active) Stg IA, T1b, pN0, M0, G2, YCT6Mdf, ER Pos, [place] PHistory of Problems:1. Stage I invasive ductal breast carcinoma, left breast.2. Morbid obesity.3. Glucose intolerance.4. Hypercholesterolemia.5. Vitamin D deficiency.Problems / Chief Complaint:Ms. Alberto is a 55-year old white woman who [facility] to review treatment of Stage I,pT1b,pN0(sn),M0 invasive ductal breast carcinoma of the let breast diagnosed10/09/2019.Toxicities:The following toxicities were assessed as a 1:Insomnia - Mild difficulty falling asleep, staying asleep or waking up earlyWeight loss - 5 to <10% from baseline; intervention not indicatedHistory of Present Illness:Oncology History:Ms. Alberto states that she had never had a mammogram before and was notfollowing with any health care provider. Her son urged her to seek medicalcare because of her family history. Initial routine mammogram was completed on09/10/2019 with a Tyrer-Cuzick score of 10.4 %. A cluster of calcification wasnoted in the upper outer aspect of the left breast. Additional views wererequested. A diagnostic left sided mammogram was completed on 09/20/2019indicating the calcifications seen on the screening mammogram are suspiciousfor possible malignancy and biopsy was recommended. On 10/09/2019 Dr. Gagnon completed a mammography guided left breast stereotactic vacuum- assistedcore biopsy with post procedural clip placement.Pathology is significant for invasive ducal carcinoma and DCIS. NottinghamHistologic score is 2. Two foci of invasive carcinoma were present with thelarger measuring 6.2 mm. 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 Estrogen receptor is 100 %and progesterone receptor is 100 %. Her-2 and Ki-67 are pending at the time ofdictation.Ms. Alberto states that she noticed no changes in either breast. Denyingdimpling, nipple retraction, nipple discharge or pain. She had nocomplications following the biopsy.The patient has lost her appetite in past 2 months with associated 32 poundweight loss. If she eats too much she gets pressure and discomfort in theupper abdomen. She is starting to eat very little, denies constipation ordiarrhea as the cause. She saw Dr. Palomares at [facility] on 01/25/[address] Martinez wanted her to see. No additional surgery is needed. Advised patient tostart radiation therapy. Dr. Palomares did bilateral ultrasound and breastexamination and the patient reports that all were normal.Has some improvement with Prilosec OTC but still experiences decreasedappetite, frequent nausea and weight loss.On 02/08/2020 the patient was diagnosed with a complete DVT of the right leg.This occurred 2 months after surgery and while she was active with no definiteprecip itating event.Interval History:In June 2020 Ms. Alberto developed diverticulitis and subsequently adiverticular abscess. In September 2020 a diverting colectomy with colostomy wascompleted. Then she developed increasing abscess requiring drainage. She isnow on IV antibiotic therapy qid. She has lost approximately 90 pounds. Sheis expected to have reversal of the colostomy in March or April 2021.Past Medical History:HypercholesterolemiaObesityHeterozygous for Factor V Leiden mutation in 2019Blood clot right leg in 2019Breast Cancer in 2019Glucose intolerance in 2019Pa Surgical History:Partial mastectomy in 2019 - [facility], Dr. 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 Ms. ALBERTO quit smoking 31years ago but had smoked 0.5 packs/day for 6 years. She quit drinking 29 yearsago. Ms. ALBERTO reports no contact with hazardous material.Ms. ALBERTO reports the following support systems: lives alone and lives in [facility]. Her diet consists of regular meals. She indicates her activity level as:daily activities. 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 MOYs mother is alive: coronary artery disease, and diabetes, and CABGx 4. Ms. ALBERTO's father at age 32: Truck accident at age 32. Ms. ALBERTO'smaternal grandmother at age 91. Her maternal grandfather is :myocardial infarction, and hypertension. Her paternal grandmother is .Her paternal grandfather is . Ms. ALBERTO has 2 brothers: 2 alive. 's first brother's cardiovascular disease, and heavy smoking and alcohol.Another brother's hypercholesterolemia, and obstructive sleep apnea, andstopped smoking in mid-2019. She has 1 sister who is alive: clotting disorder.She has 3 maternal uncles: 1 alive, 2 . Ms. ALBERTO's first maternaluncle's leukemia at age 72. Another maternal uncle's end stage lung cancer,smoker. Another maternal uncle's lung cancer at age 80. Son alive and well.No family history of breast cancer or ovarian cancer.Sister and her daughter have Factor V Leiden.Review of Systems:ConstitutionalAbnormal - Was very ill from June until September. Is slowly recovering withantibiotics.Allergic/ImmunologicNormal - No reactions.EyesNormal - No significant visual difficulties. No diplopia.ENMTNormal - No problems with hearing, no sore throat, no sinus drainage.EndocrineNormal - No diabetes, thyroid disease or hormone replacement. No hot flashesor night sweats.BreastsNormal - No abnormal masses of breast, no nipple retraction, nipple dischargeor pain.RespiratoryAbnormal - Has dyspnea because of general weakness due to prolonged illness.No symptoms of PE. Continues on anticoagulation.CardiovascularNormal - No anginal chest pain, palpitations or orthopnea.GastrointestinalAbnormal - The GI problems which persisted in 2019 were related todiverticulitis and the diverticular abscess. Now post intervention she isrecovering and eating again with no nausea or vomiting.M usculoskeletalAbnormal - Has arthritis affecting back, knees and hands.IntegumentaryNormal - No chronic rashes, inflammation, ulcerations or skin changes.NeurologicNormal - No headache, blurred vision, and no areas of focal weakness ornumbness. Normal gait. No sensory problems.PsychiatricNormal - No insomnia, depression, cheyanne or mood swings.Vital Signs:Vitals are not available for this patient.Performance Status:1 - No physically strenuous activity, but ambulatory and able to carry outlight or sedentary work (e.g. office work, light house work). (ECOG)Physical Exam:ConstitutionalNormal - Alert, cooperative, oriented. Able to move without discomfort.Appears close to chronological age. Weight loss is apparent.HeadNormal - Normocephalic; no scars.EyesNormal - Conjunctivae and sclerae are clear and without icterus. Pupils arereactive and equal. EOMI.ENMTNormal - No oral exudates, ulcers, masses, thrush or mucositis. Oropharynxclear. Tongue normal.NeckNormal - No masses, fatty.Hematologic/LymphaticNormal - No tender or palpable lymph nodes in the cervical, supraclavicular,axillary area.RespiratoryNormal - Lungs are clear to percussion and auscultation without rhonchi orwheezing.CardiovascularNormal - Regular rate and rhythm of heart without murmurs, gallops or rubs.BreastsAbnormal - Right breast retracted nipple (chronic), no nipple discharge, withsoft fibrocystic tissue throughout. No palpable hard masses.Left breast retracted nipple (chronic), no nipple discharge, upper outerlumpectomy scar is well healed, axillary incision line is well healed, nonodules palpable in incision lines, fibrocystic tissue in the remainingbreast, no hard masses are palpable.AbdomenNormal - Morbidly obese. Non-tender, non-distended, no masses, ascites orhepatosplenomegaly. Good bowel sounds. No guarding or te nderness even in theepigastrium. No pulsatile masses. Soft reducible umbilical hernia.Back/SpineNormal - No kyphosis, scoliosis, compression fractures. Non- tender topalpation.ExtremitiesNormal - No visible deformities, no cyanosis, clubbing; calves are fatty butwith no edema.MusculoskeletalNormal - Vertebrae, ribs, pelvis NT on palpation. No CVAT.IntegumentaryNormal - No rashes, scars, or lesions suggestive of malignancy.NeurologicNormal - No sensory or motor deficits, normal cerebellar function, normalgait, cranial nerves II-XII grossly intact.PsychiatricNormal - Verbalizes understanding of our discussions today.Laboratory:DATE OF EXAMINATION: 09/12/2020 17:39 ESTCT ABD&PEL W/O IV OR ORAL CONTHISTORY: Recent pelvic drainage now with painComparison:08/28/2019TECHNIQUE: This CT exam was performed using the following dosereduction techniques: automated exposure control, adjustment of mAand/or kV according to the patient's size, and use of iterativereconstruction technique.Standard contiguous axial spiral imaging was obtained from the dome ofthe diaphragms through the symphysis pubis without oral contrast andwithout intravenous contrast administration and with coronalreformatting.FINDINGS:Lower thorax: There is lingular scarring. Mild atelectatic change inthe left lower lobe posteriorly. There are coronary calcifications.ABDOMEN:Liver: There is a calcified granuloma in the posterior superior aspectof the right hepatic lobe.Gallbladder and bile ducts: PostcholecystectomyPancreas: UnremarkableSpleen: UnremarkableAdrenals: No adrenal masses.Kidneys and ureters: Residual contrast in the renal calyces. Nohydronephrosis or perinephric soft tissue strandingStomach and bowel: There is a small hiatal hernia. The stomach isotherwise unremarkable. There is contrast in the colon from thepreviously done study. Several loops of mildly thickened jejunum. Noevidence of bowel obstruction. Thickened sigmoid colon is again notedwith cysts residual perisigmoidal.Appendix: The appendix is normal.Peritoneum/retroperitoneum:There is a pigtail drainage catheterentering from the left lower quadrant with the tip in the pelvisanteriorly the site of the previous collection.Lymph nodes:No adenopathySoft tissues:There is a prominent bowel containing umbilical herniawhich extends within the soft tissue pannus inferiorly. There is aloop of transverse colon within the hernia sac. 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 There isresidual soft tissue stranding.IMPRESSION:Post pelvic abscess drainage. The perisigmoidal collection issignificantly decreased in size. There is mild surroundinginflammatory thomas e. The site of the main portion of the collections.Superior to the bladder there is now soft tissue density which likelyrepresents residua of the beck of the collection. Recommendfollow-up. The sigmoid colon remains thickened with surroundinginflammatory change. Recommend correlation with colonoscopy when thepatient is able.Electronically signed in PS360 by: Flo Tabares M.D. 09/12/2020 18:19ESTReported By: Henrry TABARES M.D.Signed By: FLO TABARES M.D..Impression:1. Stage I, pT1b,pN0 (sn),M0 invasive ductal breast carcinoma withmultifocal DCIS, HR positive, postmenopausal.2. DVT, right leg.Plan:1. The patient started Femara on 10/20/2019 and tolerated it for 2 months thendeveloped nausea and progressive anorexia. She ate very little and lost 45pounds in 4 months. This is not a side effect of Femara but may be related tothe generic preparation. She was advised to stop Femara while receiving RT.Femara was held throughout radiation therapy and there was no improvement in GIsymptoms. Prilosec OTC resulted in some improvement. I prescribed Vecdrlqtyk99 mg bid. Also I referred her to Dr. Constantino, GI specialist to complete a fullGI evaluation with EGD. I resumed Femara 2.5 mg daily since holding it for 2months made no difference in GI complaints.The source of the problem was related to diverticulitis and the diverticularabscess. Now that the appropriate intervention was completed her nausea andother GI symptoms have resolved.2. The patient is positive for Factor V Leiden mutation and requires Xarelto.I advised her to continue anticoagulation with Xarelto until all surgery andtreatment for the diverticular abscess are completed.Follow-up: Follow-up is scheduled in 6 months. Name Value Range Interpretation Code Description Data Maura rce(s) Supporting Document(s) ID Date Data Source [id number] 11/17/2020 04:15:00 PM EDT [facility] ana FAX TO ALE[facility] AND TO DR Chan BECK @ Name Value Range Interpretation Code Description Data Maura rce(s) Supporting Document(s) WBC 5.08 x10E3/uL 4.0-10.5 [facility] RBC 4.09 x10E6/uL 4.20-5.40 [facility] Hemoglobin 10.7 g/dL 12.0-16.0 [facility] Hematocrit 34.9 % 37.0-47.0 [facility] MCV 85.3 fL 81.0-99.0 [facility] MCH 26.2 pg 27.0-31.0 [facility] MCHC 30.7 g/dL 32.7-35.6 [facility] RDW 15.8 % 11.5-14.0 [facility] Platelet count 429 x10E3/uL 150-450 [facility] ital MPV 9.0 fl 6.9-9.5 [facility] SEG. NEUTROPHIL 62 % 34-64 [facility] LYMPHOCYTE 24 % 25-45 [facility] EOSINOPHILS 6 % 0-7 [facility] MONOCYTES 8 % 2-10 [facility] PLATELET MORPH OCC PLATELET CLUMPS N [facility] PLATELET MORPHOLOGY EXPECTED RESULT:NORM AL = NO REMARKABLE MORPHOLOGYAny findings other than Normal will be reported and areconsidered Abnormal. The significance of Abnormal findingsare to be clinically correlated by the provider. ID Date Data Source [id number] 11/17/2020 03:26:00 PM EDT [facility] ana FAX TO [facility] AND TO DR Chan BECK @ Name Value Range Interpretation Code Description Data Maura rce(s) Supporting Document(s) GLU 96 mg/dL 70-110 [facility] Patients taking Sulfasalazine may have f alsely depressedGlucose levels. Patients taking Sulfapyridine may havefalsely elevated Glucose levels. Patients should be drawnfor Glucose before the initial administration of eitherdrug. BUN 10 mg/dL 7-23 [facility] CRE 0.781 mg/dL 0.500-1.300 [facility] GFR > 60 mL/min [facility] CHLORIDE 108 mmol/L 99-110 [facility] NA 147 mmol/L 136-147 [facility] POTASSIUM 3.5 mmol/L 3.5-5.1 [facility] TCO2 34 mmol/L 20-33 [facility] ANION GAP 8.5 10.0-20.0 [facility] CA 8.2 mg/dL 8.3-10.7 [facility] ALKALINE PHOS 62 U/L 45-117 [facility] TP 6.4 g/dL 6.0-7.8 [facility] ALB 2.4 g/dL 3.5-5.0 [facility] ESRD Dialysis patient Albumin reference range: 2.9-4.4 g/dL GL 4.0 g/dL 2.3-3.5 [facility] A/G 0.6 1.0-2.5 [facility] T. BILIRUBIN 0.2 mg/dL 0.1-1.1 [facility] The Dimension [place] Total Bilirubin is n ot recommended forpatients undergoing treatment with eltrombopag (Promacta)due to the potential for falsely elevated results. ALTI 9 U/L 6-54 [facility] Patients taking Sulfasalazine and/or Sul fapyridine may havefalsely depressed ALT levels. Patients should be drawn forALT before the initial administration of either drug. AST 14 U/L 6-38 [facility] Patients taking Sulfasalazine and/or Sul fapyridine may havefalsely depressed AST levels. Patients should be drawn forAST before the initial administration of either drug. ID Date Data Source [id number] 11/07/2020 03:05:00 PM EDT [facility] Name: SILVIA ALBERTO [facility] Rec #: [id number] 87 : 1965 Age/Sex: 55F Date of Service: 11/07/20 PHYSICIAN CHART Physician Documentation [facility] Name: Silvia Alberto Age: 55 yrs Sex: Female : 1965 Arrival Date: 11/07/2020 Time: 15:05 Bed Triage 1 Private MD: Jett Worthy ED Physician Saskia Mcgarry Disposition: 11/07 18:54 Chart complete. wj HPI: 16:52 This 55 yrs old Female presents to ER via Walk-In jja1 with complaints of Post Surgical Bleeding. 17:12 Patient is a 55-year-old female medical history [facility] for diverticulitis and DVT and is anticoagulated, who is presenting to the ER today with complaints of lower abdominal wound dehiscence and bleeding. She reports that she had a long complicated history wit h a previous surgery that was performed at [facility]. She does have an ostomy at this time. Patient reports that there 2 small areas of dehiscence which occurred after the surgery. She states that 1 of these areas is at the bottom of the wound and has had some "gushing". She is concerned about the amount of blood that has come from the wound. She denies any abdominal pain. She denies fever or chills. No aggravating or alleviating factors. Denies nausea or vomiting. Reports that overall she has had improvement.. Historical: - Allergies: Codeine; Lovenox; - Home Meds: 1. letrozole 2.5 mg Oral tab 1 tab once daily 2. pantoprazole 40 mg Oral TbEC 1 tab once daily 3. Vitamin D Oral 50,000 unit once a week 4. Xarelto 20 mg Oral tab 1 tab once daily - PMHx: DIVERTICULITIS; DVT; - PSHx: Cholecystectomy; bowel resection; - Med Reconciliation:: Green Alert: The patient's med list is complete to the best of the nurse's/provider's knowledge. Medications reviewed, verbally from patient/family. - Immunization history,: Flu vaccine is not up to date. - Advance directive: There is no existing advanced directive. Information offered. - Family History:: mother has a history of cardiac disorder, Father accident. is . - Social History: Smoking status (Tobacco): Patient states he/she has never smoked tobacco. No barriers to communication noted, The patient speaks fluent Anguillan. - The history of the events were obtained from: the patient. ROS: 17:29 Constitutional: See HPI. Head Negative for Injury. ENT: jja1 Negative for acute changes. Eyes: Negative for acute changes. Cardiovascular: Negative for chest pain. Respiratory: Negative for cough, shortness of breath, wheezing. Abdomen/GI: Negative for abdominal pain, nausea, vomiting, diarrhea, See HPI. Abdomen/GI: Negative for. Skin: See HPI. Neuro: Negative for acute changes. All other systems are negative. Exam: 17:30 Constitutional: The patient appears alert, appears to be jja1 awake, does not appear to be toxic, is obese. 17:30 Head/face: Exam is negative for abnormalities. 17:30 Eyes: Pupils: equal, round, and reactive to light and accomodation. 17:30 Neck: Supple. 17:30 Chest/axilla: Exam negative for abnormalities. 17:30 Cardiovascular: Rate: normal, Rhythm: regular, Pulses: Pulses are 2+ in right radial artery, right dorsalis pedis artery, left radial artery and left dorsalis pedis artery. Heart sounds: normal, normal S1and S2, no murmur. 17:30 Respiratory: the patient does not display signs of respiratory distress, Respirations: normal, symetrical, Breath sounds: are normal, clear throughout. 17:30 Abdomen/GI: Inspection: obese, - morbidly Bowel sounds: active, all quadrants, Palpation: abdomen is soft and non- tender, in all quadrants, Open dehiscence at the superior end of the wound with dark maroon blood drainage.. 17:30 Skin: Appearance: normal except for affected area. 17:30 Neuro: Orientation: to person, place, time & situation. Vital Signs: 15:18 BP 113 / 77; Pulse 86; Resp 16; Temp 98.3; Pulse Ox 98% ; sj Weight 94.8 kg; Height 5 ft. 5 in. (165.10 cm); 17:00 BP 118 / 72; Pulse 82; Resp 16; Pulse Ox 98% ; jb7 19:00 BP 101 / 49; Pulse 74; Resp 16; Pulse Ox 97% ; jb7 19:57 BP 122 / 55; Pulse 71; Resp 16; Pulse Ox 98% ; jb7 15:18 Body Mass Index 34.78 (94.80 kg, 165.10 cm) sj MDM: 16:00 Patient medically screened. [facility] 17:31 Case presented to: Saskia Mcgarry MD. Data reviewed: [facility] signs, nurses notes. Transition of care: After a detail discussion of the patient's case, care is transferred to Holland FRIAS. 18:53 ED course: Patient is been stable while here blood pressure wjj is 118/72 she is afebrile she did have her drain placed by Dr. Garg in IR and patient did well with the procedure. I did speak with Dr. Dumont who stated she is aware and familiar with this patient and would admit her to her service for further care.. 11/07 16:54 Order name: Cbc With Auto Differential; Complete Time: 17:5411/07 16:54 Order name: COMMET; Complete Time: 17:54 [facility] 16:54 Order name: C-Reactive Protein,Wide Range; Complete Time: 17:54 11/07 16:54 Order name: UA. 11/07 16:54 Order name: Lactic Acid; Complete Time: 17:54 [facility] 16:54 Order name: PT; Complete Time: 17:54 [facility] 16:54 Order name: PTT; Complete Time: 17:54 [facility] 16:54 Order name: Ct Abdomen & Pelvis with Con [facility]11/07 17:44 Order name: CT Guided Needle Placement [facility] 11/07 17:44 Order name: CT Abscess Drain w Cath Placem [facility] 11/07 18:44 Order name: Culture, Fluid 11/07 18:44 Order name: Gram Stain [facility] 11/07 19:48 Order name: POC COVID19 NOW adj 11/07 19:15 Order name: Admit to Inpatient EDMS Dispensed Medications: 18:45 Drug: Zosyn 4.5 grams [Zosyn 3.375 gram intravenous edv solution] Volume: 100 ml; Route: IVPB; Rate: 200 mL/hr; Infused Over: 30 mins; Site: right antecubital; Delivery: Primary pump; 19:43 Follow up: IV Status: Completed infusion; IV Intake: 100ml [facility] 19:25 Drug: vancomycin 1 grams [vancomycin 1,000 mg intravenous adj injection] Route: IVPB; Site: right antecubital; 20:44 Follow up: IV Status: Infusion continued upon admission to [address] 19:33 Drug: fentaNYL (PF) 50 mcg [fentanyl (PF) 50 mcg/mL [facility] injection solution (1 mL)] Route: IVP; Site: right antecubital; 19:56 Follow up: Response: Pain is decreased [facility] Disposition Summary: 11/07/20 18:55 Hospitalization Ordered Hospitalization Status: Inpatient Admission [facility] Provider: Colin Dumont Condition: Stable w Bed/Room Type: Inpatient [facility] Location: Med/Surg 3(11/07/20 19:49) sf2 Room Assignment: [id number](11/07/20 19:49) sf2 Diagnosis - Intra-abdominal abscess with I&D and drain. w Additional Information - Patient Status Inpatient. [facility] Forms: - Medication Reconciliation [facility] - SBAR w Addendum: 11/15/2020 07:45 Attestation: I was present, saw, evaluated and participated kr in the care with the Mid-Level Provider. My personal exam reveals findings consistent with those documented. I have reviewed relevant laboratory values and/or imaging studies. Signatures: Dispatcher [facility] Harry Clark RN RN edv Jensen, Sandra RN RN Holland Peralta PA PA wSachin Campos RN RN jb7 Frary, Shelby sf2 Haim Borrero RNP RNP jja1 Jacobs, Allena, RN RN adj Rice, Kimberly, MD MD kr Corrections: (The following items were deleted from the chart) 11/07 19:49 18:55 Med-Surg 2 wj sf2 19:49 18:55 [facility] sf2 Name Value Range Interpretation Code Description Data Maura rce(s) Supporting Document(s) ID Date Data Source [id number] 11/07/2020 03:05:00 PM EDT [facility] Name: SILVIA ALBERTO [facility] Rec #: [id number] 86 : 1965 Age/Sex: 55F Date of Service: 11/07/20 NURSE CHART Nurse's Notes [facility] Name: Silvia Alberto Age: 55 yrs Sex: Female : 1965 Arrival Date: 11/07/2020 Time: 15:05 Bed Triage 1 Private MD: Jett Worthy Diagnosis: Intra-abdominal abscess with I&D and drain. Presentation: 11/07 15:12 Transition of care: patient was not received from another setting of care. Presenting complaint: Patient states - She had abdominal surgery at [facility] on 09/15 and was discharged on 10/08. Since Tuesday she has been having discomfort at the incision. The incision broke open and there was bleeding from the site. Denies fever. Have you travelled in the last 30 days? Yes, Where have you travelled? [place]. Have you had contact with an individual with a confirmed diagnosis of Ebola or COVID-19? No. 15:12 Method Of Arrival: Walk-In 15:12 Acuity: Urgent - 3 Triage Assessment: 15:15 Suicide Screening: Have you had thoughts of harming yourself or others? No. The patient appears to have some mild discomfort, The patient is cooperative. Patient states the pain is currently a 3 / 10 The patient complains of pain in suprapubic area. The quality of the pain is described as burning, The pain is described as continuous. Historical: - Allergies: Codeine; Lovenox; - Home Meds: 1. letrozole 2.5 mg Oral tab 1 tab once daily 2. pantoprazole 40 mg Oral TbEC 1 tab once daily 3. Vitamin D Oral 50,000 unit once a week 4. Xarelto 20 mg Oral tab 1 tab once daily - PMHx: DIVERTICULITIS; DVT; - PSHx: Cholecystectomy; bowel resection; - Med Reconciliation:: Green Alert: The patient's med list is complete to the best of the nurse's/provider's knowledge. Medications reviewed, verbally from patient/family. - Immunization history,: Flu vaccine is not up to date. - Advance directive: There is no existing advanced directive. Information offered. - Family History:: mother has a history of cardiac disorder, Father accident. is . - Social History: Smoking status (Tobacco): Patient states he/she has never smoked tobacco. No barriers to communication noted, The patient speaks fluent Anguillan. - The history of the events were obtained from: the patient. Screenin:08 AUDIT 1. How often do you have a drink containing alcohol? jb7 Never (0 points). Drug Abuse Screening Test: 1. Have you used drugs other than those required for medical reasons? No (0 points), screen is complete, no risk. Abuse screen: Denies threats or abuse. Denies injuries from another. Nutritional screening: No deficits noted. Patient has no identifiable fall risk (Hudson Scale: 0 points). Assessment: 16:05 See Triage Assessment. The patient complains of pain in jb7 suprapubic area. The patient appears to have no apparent distress, to have some mild discomfort, The patient is behaving appropriately accor ding to age, cooperative. Neuro: Level of Consciousness is awake, alert, Patient is oriented to person, place and time. Respiratory: Airway is patent. Respiratory effort is even, unlabored, Respiratory pattern is regular. GI: is clean and dry. Ostomy appliance is intact. Pt. claims that she has a small area under her ostomy wafer, which is a chronic wound that she is working on solving with home health. Derm: Abdominal incision present. Mostly healed, with an area approximately one centimeter in length of dehiscence. Oozing of dark blood is present; the patient denies presence of foul odor, purulent discharge, or new onset severe pain. 16:08 Pt. has a recent, and complicated surgical history, which jb7 involves drain placement at [facility] which ended up requiring transfer to [facility], while there she had a bowel resection, as well as what the patient describes as a laparotomy for perforation, and an IR procedure due to a post-op internal bleed. Has been home now for one month with little complication; but has a small area of dehiscence. . Vital Signs: 15:18 BP 113 / 77; Pulse 86; Resp 16; Temp 98.3; Pulse Ox 98% ; sj Weight 94.8 kg; Height 5 ft. 5 in. (165.10 cm); 17:00 BP 118 / 72; Pulse 82; Resp 16; Pulse Ox 98% ; jb7 19:00 BP 101 / 49; Pulse 74; Resp 16; Pulse Ox 97% ; jb7 19:57 BP 122 / 55; Pulse 71; Resp 16; Pulse Ox 98% ; jb7 15:18 Body Mass Index 34.78 (94.80 kg, 165.10 cm) ED Course: 15:05 Patient arrived in ED. led 15:15 Triage completed. sj 15:15 Arm band placed on right wrist. sj 15:20 Jett Worthy is Private Physician. sj 15:21 Misa Aden, RN is Primary Nurse. sj 15:46 Harry Clark, RN is Primary Nurse. andrew 15:59 Haim Borrero RNP is PHCP. jja1 15:59 Saskia Mcgarry MD is Attending Physician. jja1 17:05 PHCP role handed off by Haim Borrero RNP wjj 17:05 Holland Lozoya PA is PHCP. wjj 17:28 Ct Abdomen & Pelvis with Con Sent. jb7 17:28 Labs drawn by lab staff. was sent per order to lab. jb7 Inserted peripheral IV: 20 gauge Inserted by Radiology Staff. 17:[address] Garg, in the radiology department, jb7 with assistance of radiology staff. 17:32 Radiology: The patient went to get his/her CT at 17:15. jb7 18:54 Colni Dumont MD is Hospitalizing Provider. wjj 19:07 CT Guided Needle Placement Sent. jb7 19:07 CT Abscess Drain w Cath Placem Sent. [facility] 19:22 Primary Nurse role handed off by Harry Clark RN skb 19:22 Primary Nurse role handed off by Misa Aden RN skb 19:22 Sachin Mcclure, RN is Primary Nurse. b 19:48 The patient was tested for COVID-19 and the result was adj negative. 19:54 Nicky Khan RN is Primary Nurse. skb Administered Medications: 18:45 Drug: Zosyn 4.5 grams [Zosyn 3.375 gram intravenous edv solution] Volume: 100 ml; Route: IVPB; Rate: 200 mL/hr; Infused Over: 30 mins; Site: right antecubital; Delivery: Primary pump; 19:43 Follow up: IV Status: Completed infusion; IV Intake: 100ml [facility] 19:25 Drug: vancomycin 1 grams [vancomycin 1,000 mg intravenous adj injection] Route: IVPB; Site: right antecubital; 20:44 Follow up: IV Status: Infusion continued upon admission to [address] 19:33 Drug: fentaNYL (PF) 50 mcg [fentanyl (PF) 50 mcg/mL jb7 injection solution (1 mL)] Route: IVP; Site: right antecubital; 19:56 Follow up: Response: Pain is decreased jb Intake: 19:43 IV: 100ml; Total: 100ml. [facility] Outcome: 18:55 Decision to Hospitalize by Provider. w 19:56 Patient verbalized understanding of disposition [facility] instructions. Patient has no functional deficits. Patient functions independently, Patient awake and alert. Oriented to person, place and time. 19:56 Patient admitted to Med/Surg, with NA via wheelchair, with chart, Patient handed off to Report given to [facility] 3 RN 19:56 Condition: stable Condition: improved 19:56 Discharge instructions given to patient, Patient was instructed on discharge instructions, follow up and referral plans, medication usage, The patient demonstrated understanding of instructions, No prescriptions given. 19:56 Vitals are Complete in accordance with Emergency Department Policy. 20:44 Patient left the ED. [facility] Signatures: Harry Clark RN RN edv Jensen, Sandra RN Holland Carpio PA PA wSachin Campos RN EVELINA kelly Yandy Barajas RN RN skb Xiomara Lenz, RN Haim Johnson RNP RNP jja1 Palma Rodriguez RN Nikky Borjas Name Value Range Interpretation Code Description Data Maura rce(s) Supporting Document(s) ID Date Data Source [id number] 11/15/2020 01:07:00 PM EDT [facility] Name: SILVIA ALBERTO : 1965 A ge/Sex: 55F Ordering Provider: Colin Duomnt MD Med Rec #: [id number] Reg Status: DIS IN Room #: 311-2 Date of Service: 11/14/20 Report Number: [id number] cc:SUMMER Salas; Colin Dumont MD Send Report To: [id number] CT/CT Pelvis No Contrast Reason for exam: DRAIN PLACEMENT FINDINGS: Left lower quadrant ostomy again identified. Abscess cavity is still present and has a tube still present within it with some air and blood products within it and it measures about 5 cm x 5.5 cm. We will continue drainage. Catheter was repositioned further into the cavity. No other significant findings. IMPRESSION: Will continue with gravity drainage. Using CT guidance the catheter was placed deeper into the abscess cavity. Flushes were obtained during the procedure and the CT scan demonstrated the catheter to be in good position in the abscess cavity. IMPRESSION: CT guidance utilized to manipulate the catheter deeper into the abscess cavity. While performing the above CT exam, the following dose reduction techniques wereused: *Automated exposure control *Adjustment of the mA and/or kV according to patient size *Use of iterative reconstruction technique CT Dose in mSv: 15.37 Contrast Agent in ml: Method of Administration: REPORT SIGNATURE ON FILE Reported By: Renard Garg MD <Electronically signed by Raimundo Garg MD> 11/17/20 1337 Dictation Date/Time: 11/14/20 1348 Transcribed Date/Time: 11/15/20 1307 Special Needs Babysitter: JOURDAN Name Value Range Interpretation Code Description Data Maura rce(s) Supporting Document(s) ID Date Data Source [id number] 11/14/2020 10:33:00 AM EDT [facility] Name: SILVIA ALBERTO : 1965 A ge/Sex: 55F Ordering Provider: Colin Dumont MD Med Rec #: [id number] Reg Status: ADM IN Room #: 311-2 Date of Service: 11/13/20 Report Number: [id number] cc:SUMMER Salas; Colin Dumont MD Send Report To: [id number] CT/CT Cheryl/Retro Drain via Cath Reason for exam: TUBE EXCHANGE FINDINGS: Using CT guidance and an 0.35 Coon's wire was utilized for the exchange of a 10 Sammarinese pigtail catheter with a 12 Sammarinese pigtail catheter. No complications were encountered. Your patient tolerated the procedure well. Thecavity was collapsed a bit more but it is still present and again there were numerous blood clots within this cavity that remain at about 4 x 6 cm. We will perform intracavitary TPA infusion and drainage. IMPRESSION: Successful catheter exchange. We will perform intracavitary TPA inorder to break up the blood clot. While performing the above CT exam, the following dose reduction techniques wereused: *Automated exposure control *Adjustment of the mA and/or kV according to patient size *Use of iterative reconstruction technique CT Dose in mSv: 16.68 Contrast Agent in ml: Method of Administration: REPORT SIGNATURE ON FILE Reported By: Renard Garg MD <Electronically signed by Raimundo Garg MD> 11/14/20 1053 Dictation Date/Time: 11/13/20 1429 Transcribed Date/Time: 11/14/20 1033 Transcri ptionist: BEBETO Name Value Range Interpretation Code Description Data Maura rce(s) Supporting Document(s) ID Date Data Source [id number] 11/14/2020 08:15:00 AM EDT [facility] Name: SILVIA ALBERTO : 1965 A ge/Sex: 55F Ordering Provider: Colin Dumont MD Med Rec #: [id number] Reg Status: ADM IN Room #: 311-2 Date of Service: 11/13/20 Report Number: [id number] cc:SUMMER Salas; Colin Dumont MD Send Report To: [id number] CT/CT Abdomen & Pelvis w Con Reason for exam: unable to aspirate pigtail drain Comparison: 11/07/20 and 11/11/20. FINDINGS: Visualized lower lungs clear. No enhancing liver lesions. Gallbladder is removed. Pancreas and spleen withinnormal limits. Bilateral adrenal glands unremarkable. Kidneys unremarkable. No renal stones or hydronephrosis. Ureters unremarkable. Left lower quadrant ostomy site. No bowel obstruction. There is a rectal stump. There is an abscess identified in the lower peritoneal cavity measuring 7 x 6 x 6 cm with pigtail catheter within the abscess. No free air or free fluid. There is mild inflammation and a small amount of air along the midline around the umbilicus. Osseous structures unremarkable. Uterus unremarkable. No adnexal mass. IMPRESSION: 7 x 6 x 6 cm abscess in the lower peritoneal cavity with pigtail catheter tip within the abscess. No free air or free fluid. There is also a subcutaneous abscess in the region of the umbilicus. No bowel obstruction. While performing the above CT exam, the following dose reduction techniques wereused: *Automated exposure control *Adjustment of the mA and/or kV according to patient size *Use of iterative reconstruction technique CT Dose in mSv: 16.269 Contrast Agent in ml: Isovue 300 100 Method of Administration: Intraveneous REPORT SIGNATURE ON FILE Reported By: Nathan Silvestre DO <Electronically signed by Nathan Silvestre DO> 11/14/20 1326 Dictation Date/Time: 11/13/20 1317 Transcribed Date/Time: 11/14/20 0815 Special Needs Babysitter: BEBETO Name Value Range Interpretation Code Description Data Maura rce(s) Supporting Document(s) ID Date Data Source [id number] 11/13/2020 10:53:00 AM EDT [facility] Name Value Range Interpretation Code Description Data Maura rce(s) Supporting Document(s) Sodium 144 mmol/L 137-145 Normal (applies to non-numeric resul ts) [facility] Potassium 3.5-5.1 Below low normal [facility] Chloride 106 mmol/L 98-112 Normal (applies to non-numeric resul ts) [facility] Carbon Dioxide CO2 22.0-33.0 Normal (applies to non-numer ic results) [facility] Anion Gap 4.0-11.0 Normal (applies to non-numeric resul ts) [facility] BUN 7 mg/dL 7-17 Normal (applies to non-numeric resul ts) [facility] Creatinine 0.70-1.[address] [facility] GFR >60 Normal (applies to non-numeric results) [facility] Result based on MDRD formula. Glucose Level 96 mg/dL 74-99 Normal (applies to non-numeric re sults) [facility] The reference range is only applicable w hen fasting. Calcium-Uncorrected 8.4-10.2 Normal (applies to non-nume sangeetha results) [facility] Corrected Calcium 8.4-10.2 Normal (applies to non-numeri c results) [facility] ID Date Data Source [id number] 11/13/2020 10:53:00 AM EDT [facility] Name Value Range Interpretation Code Description Data Maura rce(s) Supporting Document(s) C-Reactive Protein,Wide Range <3.00 Above high normal [facility] ID Date Data Source [id number] 11/13/2020 10:37:00 AM EDT [facility] Name Value Range Interpretation Code Description Data Maura rce(s) Supporting Document(s) White Blood Count 4.8-10.8 Normal (applies to non-numeri c results) [facility] Red Blood Count 3.68-5.22 Normal (applies to non-numeric results) [facility] Hemoglobin 11.2-15.[address] [facility] Hematocrit 34.1-44.[address] [facility] Mean Corpuscular Volume 81-99 Normal (applies to non- numeric results) [facility] Mean Corpuscular Hemoglobin 27.0-33.0 Below low normal [facility] Mean Corpuscular HGB Conc 32.0-36.0 Normal (applies to no n-numeric results) [facility] Red Cell Distribution Width 11.5-14.5 Above high normal [facility] Platelet Count 537 X10 3/uL 130-450 Above high normal [facility] Mean Platelet Volume 9.5-12.7 Below low normal [facility] Imm Grans% (AUTO) 1 % 0-2 Normal (applies to non-numeri c results) [facility] Neutrophils % (AUTO) 61 % 40-75 Normal (applies to non-num joleen results) [facility] Lymphocytes % (AUTO) 22 % 21-46 Normal (applies to non-num joleen results) [facility] Monocytes % (AUTO) 10 % 5-12 Normal (applies to non-numer ic results) [facility] Eosinophils % (AUTO) 6 % 1-5 Above high normal [facility] Basophils % (AUTO) 1 % 0-1 Normal (applies to non-numer ic results) [facility] Imm Grans# (AUTO) 0.0-0.5 Normal (applies to non-numeri c results) [facility] Neutrophils # (AUTO) 1.5-8.1 Normal (applies to non-num joleen results) [facility] Lymphocytes # (AUTO) 1.0-3.1 Normal (applies to non-num joleen results) [facility] Monocytes # (AUTO) 0.2-1.3 Normal (applies to non-numer ic results) [facility] Eosinophils# (AUTO) 0.0-0.5 Normal (applies to non-nume sangeetha results) [facility] Basophils # (AUTO) 0.0-0.1 Normal (applies to non-numer ic results) [facility] ID Date Data Source [id number] 11/12/2020 06:20:00 AM EDT [facility] Name Value Range Interpretation Code Description Data Maura rce(s) Supporting Document(s) Vancomycin,Trough 10.0-20.0 Above high normal [facility] ID Date Data Source [id number] 11/16/2020 06:30:00 AM EDT [facility] Name: SILVIA ALBERTO : 1965 A ge/Sex: 55F Ordering Provider: RODRIGUEZ Cruz Med Rec #: [id number] Reg Status: DIS IN Room #: 311-2 Date of Service: 11/11/20 Report Number: [id number] cc:SUMMER Salas; RODRIGUEZ Cruz Send Report To: [id number] US/US Guidance PICC Line Rt Reason for exam: [employer] Technique: Ultrasound was used to determine successful access site. Following successful identification of a patent vessel, ultrasound was used to puncture the vein. A permanent image was sent to [facility]. FINDINGS: The right basilic vein was localized and the skin was prepped and draped in the normal sterile fashion and anesthetized with 1 mL of subcutaneous lidocaine. Using sterile probe covers, masks, gowns, gloves, headgear and drapesthe basilic vein was cannulated and a 38 cm PICC line catheter was placed. Normal sterile technique which included cap,mask,sterile gown,sterile gloves,andfull body draping was utilized. Ultrasound sterile technique included sterile gel and sterile probe covers. REPORT SIGNATURE ON FILE Reported By: Renard Garg MD <Electronically signed by Raimundo Garg MD> 11/17/20 1337 Dictation Date/Time: 11/14/20 1422 Transcribed Date/Time: 11/16/20 0630 Special Needs Babysitter: JOURDAN Name Value Range Interpretation Code Description Data Maura rce(s) Supporting Document(s) ID Date Data Source [id number] 11/12/2020 01:42:00 PM EDT [facility] Name: SILVIA ALBERTO : 1965 A ge/Sex: 55F Ordering Provider: RODRIGUEZ Cruz Med Rec #: [id number] Reg Status: ADM IN Room #: 307-1 Date of Service: 11/11/20 Report Number: [id number] cc:SUMMER Salas; RODRIGUEZ Cruz Send Report To: [id number] XRP/XR Chest Post PIC/Port/Ln Plac Reason for exam: CONFIRM PICC PLACEMENT FINDINGS: Examination reveals a PICC line from the right upper extremity with its tip in the SVC. Lung hernandez show atelectasis at the left lung base. No focal infiltrate or consolidation is identified. Cardiac silhouette appears unremarkable. IMPRESSION: PICC tip from the right upper extremity. No evidence of a DVT identified. Tip is in the SVC. REPORT DICTATED BY RENARD NEAL, REVIEWED AND SIGNED BY DR. GARG. Fluoroscopy time in seconds: 0 Number of Exposures: Time Portable Image Per formed: Contrast Agent in ml: Method of Administration: REPORT SIGNATURE ON FILE Reported By: Renard Garg MD <Electronically signed by Raimundo Garg MD> 11/12/20 1349 Dictation Date/Time: 11/11/20 1440 Transcribed Date/Time: 11/12/20 1342 Special Needs Babysitter: JOURDAN Name Value Range Interpretation Code Description Data Maura rce(s) Supporting Document(s) ID Date Data Source [id number] 11/11/2020 11:25:00 AM EDT [facility] Name Value Range Interpretation Code Description Data Maura rce(s) Supporting Document(s) White Blood Count 4.8-10.8 Normal (applies to non-numeri c results) [facility] Red Blood Count 3.68-5.22 Normal (applies to non-numeric results) [facility] Hemoglobin 11.2-15.[address] [facility] Hematocrit 34.1-44.9 Normal (applies to non-numeric resul ts) [facility] Mean Corpuscular Volume 81-99 Normal (applies to non- numeric results) [facility] Mean Corpuscular Hemoglobin 27.0-33.0 Below low normal [facility] Mean Corpuscular HGB Conc 32.0-36.0 Below low normal [facility] Red Cell Distribution Width 11.5-14.5 Above high normal [facility] Platelet Count 640 X10 3/uL 130-450 Above high normal [facility] Mean Platelet Volume 9.5-12.7 Below low normal [facility] Imm Grans% (AUTO) 1 % 0-2 Normal (applies to non-numeri c results) [facility] Neutrophils % (AUTO) 64 % 40-75 Normal (applies to non-num joleen results) [facility] Lymphocytes % (AUTO) 18 % 21-46 Below low normal [facility] Monocytes % (AUTO) 9 % 5-12 Normal (applies to non-numer ic results) [facility] Eosinophils % (AUTO) 7 % 1-5 Above high normal [facility] Basophils % (AUTO) 1 % 0-1 Normal (applies to non-numer ic results) [facility] Imm Grans# (AUTO) 0.0-0.5 Normal (applies to non-numeri c results) [facility] Neutrophils # (AUTO) 1.5-8.1 Normal (applies to non-num joleen results) [facility] Lymphocytes # (AUTO) 1.0-3.1 Below low normal [facility] Monocytes # (AUTO) 0.2-1.3 Normal (applies to non-numer ic results) [facility] Eosinophils# (AUTO) 0.0-0.5 Normal (applies to non-nume sangeetha results) [facility] Basophils # (AUTO) 0.0-0.1 Normal (applies to non-numer ic results) [facility] ID Date Data Source [id number] 11/12/2020 11:09:00 AM EDT [facility] Name: SILVIA ALBERTO : 1965 A ge/Sex: 55F Ordering Provider: Colin Dumont MD Med Rec #: [id number] Reg Status: ADM IN Room #: 307-1 Date of Service: 11/11/20 Report Number: [id number] cc:SUMMER Salas; Colin Dumont MD Send Report To: [id number] CT/CT Abdomen & Pelvis No Contras Reason for exam: reassess drainage catheter off xarelto FINDINGS: The lung bases demonstrate some minimal scarring in the left lower lobe. The liver and spleen appear normal. The adrenals and kidneys are within normal limits. Pancreas has been removed. There is a left lower quadrant ostomy noted. There has been debridement to the wound in the left lower quadrant and the drain is still in place in good position in the pelvis. The previously noted abscess cavity which is an infected hematoma now measures 4.2 x 5 cm significantly decreased in size. Bowel loops within normal limits. No other significant findings. IMPRESSION: Abscess cavity measures about 4.2 x 5 cm and the tube is still in good position. That is significantly decreased in size. The infected skin wound has also been debrided and looks much better. While performing the above CT exam, the following dose reduction techniques wereused: *Automated exposure control *Adjustment of the mA and/or kV according to patient size *Use of iterative reconstruction technique CT Dose in mSv: 13.9 Contrast Agent in ml: Method of Administration: REPORT SIGNATURE ON FILE Reported By: Renard Garg MD <Electronically signed by Raimundo Garg MD> 11/12/20 1123 Dictation Date/Time: 11/11/20 1057 Transcribed Date/Time: 11/12/20 1109 Special Needs Babysitter: BEBETO Name Value Range Interpretation Code Description Data Maura rce(s) Supporting Document(s) ID Date Data Source [id number] 11/07/2020 03:05:00 PM EDT [facility] Name: SILVIA ALBERTO [facility] Rec #: [id number] : 1965 Age/Sex: 55F Date of Service: 11/07/20 DISPOSITION SUMMARY Discharge Summary [facility] Name:Silvia Alberto Emergency Department Age:55 yrs Sex:Female :1965 Arrival:11/07/2020 15:05 Departure Date11/07/2020 Departure Time20:44 Private MD:Jett Worthy Outcome: Hospitalize Location: Med/Surg 3 Condition: Stable Chief Complaint: Post Surgical Bleeding Diagnosis: - Intra-abdominal abscess with I&D and drain. Prescriptions: Custom Notes: Attending Physician: Saskia Mcgarry MD Private MD: Jett Worthy Mid Level Provider: Holland Lozoya PA Hospitalizing Provider: Colin Dumont MD Orders: Cbc With Auto Differential, COMMET, C-Reactive Protein,Wide Range, UA., Lactic Acid, PT, PTT, Ct Abdomen & Pelvis with Con, CT Guided Needle Placement, CT Abscess Drain w Cath Placem, vancomycin, Culture, Fluid, Gram Stain, POC COVID19 NOW, Collect Urine - Clean Catch, Zosyn, fentaNYL (PF), Admit to Inpatient Discharge Instruction: Medication Reconciliation, SBAR Name Value Range Interpretation Code Description Data Maura rce(s) Supporting Document(s) ID Date Data Source [id number] 11/07/2020 07:48:00 PM EDT [facility] Name Value Range Interpretation Code Description Data Maura e(s) Supporting Document(s) Respiratory specimen severe acute respir atory syndrome coronavirus 2 (SARS-CoV-2) RNA Negative (qualifier value) [facility] This lab was ordered by [facility] Veronica luu and reported by [facility]. ID Date Data Source [id number] 11/07/2020 07:58:00 PM EDT [facility] Performed by: Russel Mays Present? YCOVID Screen Result: NEGATIVENegative results should be treated as presumptive and, if inconsistent with clinical signs and symptoms or necessary for patient management, should be tested with different authorized or cleared molecular tests. Negative results do not preclude SARS-CoV-2 infection and should not be used as the sole basis for patient management decisions. Negative results should be considered in the context of a patients recent exposures, history and the presence of clinical signs and symptoms consistent with COVID-19. This test has not been FDA cleared or approved; this test has been authorized by FDA under an Emergency Use Authorization for use by laboratories certified under the Clinical Laboratory Improvement Amendments of 1988 (CLIA), 42 U.S.C. 263a, to perform moderate complexity/high complexity tests and at the Point of Care (POC), i.e., in patient care settings operating under a CLIA Certificate of Waiver, Certificate of Compliance, or Certificate of Accreditation. Factsheets for healthcare providers: https://www.fda.gov/media/081704/download Factsheets for patients: https://www.fda.gov/media/361193/download The ID NOW Instrument is a rapid molecular in vitro diagnostic test utilizing an isothermal nucleic acid amplification technology intended for the qualitative detection of nucleic acid from the SARS-CoV-2 viral RNA. THIS IS A STATE REPORTABLE COMMUNICABLE DISEASE. Manual entry verified by Liz Dc 11/07/201956 Test Performed By: [facility] [address] [address] Director: Claire Roca MD Name Value Range Interpretation Code Description Data Maura rce(s) Supporting Document(s) ID Date Data Source [id number] 11/09/2020 06:15:00 AM EDT [facility] Name: SILVIA ALBERTO : 1965 A ge/Sex: 55F Ordering Provider: Haim Borrero IV, FNP Med Rec #: [id number] Reg Status: ADM IN Room #: 307-1 Date of Service: 11/07/20 Report Number: [id number] cc:Haim Borrero IV, FNP; SUMMER Salas Send Report To: [id number] CT/CT Abscess Drain w Cath Placem Reason for exam: ABSCESS DRAIN FINDINGS: Abscess cavity in the mid portion of the pelvis was localized with CTguidance. Skin was prepped and draped and anesthetized with 1 mL of subcutaneous lidocaine and 10 mL of deeper lidocaine. Using a 19 gauge needle with an 0.35 wire and 7 Sammarinese and 8 Sammarinese dilators a 10 Sammarinese pigtail catheter was placed. Approximately 120 mL of bloody fluid was withdrawn and sent for culture and sensitivity and gram stain. We will leave this catheter togravity drainage with flushes twice per shift for the first 24 hours. No other significant findings. 10 Sammarinese pigtail catheter in good position. IMPRESSION: Successful CT-guided abscess drainage. Report recalled. Exam edit made. Body of report unchanged. JOSIE.GRADE 936 While performing the above CT exam, the following dose reduction techniques wereused: *Automated exposure control *Adjustment of the mA and/or kV according to patient size *Use of iterative reconstruction technique CT Dose in mSv: 49.674 Contrast Agent in ml: Method of Administration: REPORT SIGNATURE ON FILE Reported By: Renard Garg MD <Electronically signed by Raimundo Garg MD> 11/10/20 1300 Dictation Date/Time: 11/07/20 1832 Transcribed Date/Time: 11/09/20 06 Special Needs Babysitter: BEBETO Name Value Range Interpretation Code Description Data Maura rce(s) Supporting Document(s) ID Date Data Source [id number] 11/09/2020 06:15:00 AM EDT [facility] Name: SILVIA ALBERTO : 1965 A ge/Sex: 55F Ordering Provider: Haim Borrero IV, FNP Med Rec #: [id number] Reg Status: ADM IN Room #: 307-1 Date of Service: 11/07/20 Report Number: [id number] cc:Haim Borrero IV, FNP; SUMMER Salas Send Report To: [id number] CT/CT Abscess Drain w Cath Placem Reason for exam: ABSCESS DRAIN FINDINGS: Abscess cavity in the mid portion of the pelvis was localized with CTguidance. Skin was prepped and draped and anesthetized with 1 mL of subcutaneous lidocaine and 10 mL of deeper lidocaine. Using a 19 gauge needle with an 0.35 wire and 7 Sammarinese and 8 Sammarinese dilators a 10 Sammarinese pigtail catheter was placed. Approximately 120 mL of bloody fluid was withdrawn and sent for culture and sensitivity and gram stain. We will leave this catheter togravity drainage with flushes twice per shift for the first 24 hours. No other significant findings. 10 Sammarinese pigtail catheter in good position. IMPRESSION: Successful CT-guided abscess drainage. Report recalled. Exam edit made. Body of report unchanged. JOSIE.GRADE 936 While performing the above CT exam, the following dose reduction techniques wereused: *Automated exposure control *Adjustment of the mA and/or kV according to patient size *Use of iterative reconstruction technique CT Dose in mSv: 49.674 Contrast Agent in ml: Method of Administration: REPORT SIGNATURE ON FILE Reported By: Renard Garg MD <Electronically signed by Raimundo Garg MD> 11/10/20 1300 Dictation Date/Time: 11/07/20 1832 Transcribed Date/Time: 11/09/20 0615 Special Needs Babysitter: BEBETO Name Value Range Interpretation Code Description Data Maura rce(s) Supporting Document(s) ID Date Data Source [id number] 11/09/2020 06:15:00 AM EDT [facility] Name: SILVIA ALBERTO : 1965 A ge/Sex: 55F Ordering Provider: Haim Borrero IV, FNP Med Rec #: [id number] Reg Status: ADM IN Room #: 307-1 Date of Service: 11/07/20 Report Number: [id number] cc:Haim Borrero IV, HIM SPECIALIST; SUMMER Salas Send Report To: [id number] CT/CT Guided Needle Placement [id number] CT/CT Abscess Drain w Cath Placem Reason for exam: ABSCESS DRAIN FINDINGS: Abscess cavity in the mid portion of the pelvis was localized with CTguidance. Skin was prepped and draped and anesthetized with 1 mL of subcutaneous lidocaine and 10 mL of deeper lidocaine. Using a 19 gauge needle with an 0.35 wire and 7 Sammarinese and 8 Sammarinese dilators a 10 Sammarinese pigtail catheter was placed. Approximately 120 mL of bloody fluid was withdrawn and sent for culture and sensitivity and gram stain. We will leave this catheter togravity drainage with flushes twice per shift for the first 24 hours. No other significant findings. 10 Sammarinese pigtail catheter in good position. IMPRESSION: Successful CT-guided abscess drainage. While performing the above CT exam, the following dose reduction techniques wereused: *Automated exposure control *Adjustment of the mA and/or kV according to patient size *Use of iterative reconstruction technique CT Dose in mSv: 49.674 Contrast Agent in ml: Method of Administration: REPORT SIGNATURE ON FILE Reported By: Renard Garg MD <Electronically signed by Raimundo Garg MD> 11/10/20 0856 Dictation Date/Time: 11/07/20 183 Transcribed Date/Time: 11/09/20 0615 Special Needs Babysitter: BEBETO Name Value Range Interpretation Code Description Data Maura rce(s) Supporting Document(s) ID Date Data Source [id number] 11/09/2020 06:15:00 AM EDT [facility] Name: SILVIA ALBERTO : 1965 A ge/Sex: 55F Ordering Provider: Haim Borrero IV, HIM SPECIALIST Med Rec #: [id number] Reg Status: ADM IN Room #: 307-1 Date of Service: 11/07/20 Report Number: [id number] cc:Haim Borrero IV, HIM SPECIALIST; SUMMER Salas Send Report To: [id number] CT/CT Guided Needle Placement [id number] CT/CT Abscess Drain w Cath Placem Reason for exam: ABSCESS DRAIN FINDINGS: Abscess cavity in the mid portion of the pelvis was localized with CTguidance. Skin was prepped and draped and anesthetized with 1 mL of subcutaneous lidocaine and 10 mL of deeper lidocaine. Using a 19 gauge needle with an 0.35 wire and 7 Sammarinese and 8 Sammarinese dilators a 10 Sammarinese pigtail catheter was placed. Approximately 120 mL of bloody fluid was withdrawn and sent for culture and sensitivity and gram stain. We will leave this catheter togravity drainage with flushes twice per shift for the first 24 hours. No other significant findings. 10 Sammarinese pigtail catheter in good position. IMPRESSION: Successful CT-guided abscess drainage. While performing the above CT exam, the following dose reduction techniques wereused: *Automated exposure control *Adjustment of the mA and/or kV according to patient size *Use of iterative reconstruction technique CT Dose in mSv: 49.674 Contrast Agent in ml: Method of Administration: REPORT SIGNATURE ON FILE Reported By: Renard Garg MD <Electronically signed by Raimundo Garg MD> 11/10/20 0856 Dictation Date/Time: 11/07/20 1832 Transcribed Date/Time: 11/09/20 0615 Special Needs Babysitter: BEBETO Name Value Range Interpretation Code Description Data Maura rce(s) Supporting Document(s) ID Date Data Source [id number] 11/07/2020 08:28:00 PM EDT [facility] DR VIDAL read back critical information 11/07/202026 LAB.WILAM Many neutrophilic granulocytes.Many gram positive rods.Moderate gram negative rods.Rare gram positive cocci. Name Value Range Interpretation Code Description [facility] Document(s) ID Date Data Source [id number] 11/07/2020 05:40:00 PM EDT [facility] Name Value Range Interpretation Code Description Data [facility] rce(s) Supporting Document(s) Sodium 137 mmol/L 137-145 Normal (applies to non-numeric resul ts) [facility] Potassium 3.5-5.1 Below low normal [facility] Chloride 101 mmol/L 98-112 Normal (applies to non-numeric resul ts) [facility] Carbon Dioxide CO2 22.0-33.0 Normal (applies to non-numer ic results) [facility] Anion Gap 4.0-11.0 Normal (applies to non-numeric resul ts) [facility] BUN 13 mg/dL 7-17 Normal (applies to non-numeric resul ts) [facility] Creatinine 0.70-1.[address] [facility] GFR 90 mL/min >60 Normal (applies to non-numeric resul ts) [facility] Result based on MDRD formula. Glucose Level 108 mg/dL 74-99 Above high normal [facility] The reference range is only applicable w hen fasting. Calcium-Uncorrected 8.4-10.2 Normal (applies to non-nume sangeetha results) [facility] Corrected Calcium 8.4-10.2 Normal (applies to non-numeri c results) [facility] Bilirubin,Total 0.2-1.3 Normal (applies to non-numeric results) [facility] SGOT(AST) 32 U/L 14-36 Normal (applies to non-numeric resul ts) [facility] SGPT(ALT) 18 U/L 9-52 Normal (applies to non-numeric resul ts) [facility] Alkaline Phosphatase 105 U/L 38-126 Normal (applies to non-num joleen results) [facility] can increase Alkaline Phosp le vels up to 2 times the normal adult value. Normal values for children and adolescents are 2 to 3 times the normal adult value. Total Protein 6.3-8.2 Normal (applies to non-numeric re sults) [facility] Albumin 3.5-5.0 Below low normal [facility] ID Date Data Source [id number] 11/07/2020 05:40:00 PM EDT [facility] Name Value Range Interpretation Code Description Data Maura rce(s) Supporting Document(s) C-Reactive Protein,Wide Range <3.00 Above high normal [facility] ID Date Data Source [id number] 11/07/2020 05:37:00 PM EDT [facility] 3 hour post Lactic if elevated? Y 3 dillon r post Lactic if elevated? Y 3 hour post Lactic if elevated? Y 3 dillon r post Lactic if elevated? Y Name Value Range Interpretation Code Description Data Maura rce(s) Supporting Document(s) PT 9.4-12.[address] [facility] INR Normal (applies to non-numeric results) [facility] The use of the INR is restricted to jarocho ents on stable oral anticoagulant. Therapeutic Range: 2.0-3.0 High Risk Values: 2.5-3.5 ID Date Data Source [id number] 11/07/2020 05:37:00 PM EDT [facility] 3 hour post Lactic if elevated? Y 3 dillon r post Lactic if elevated? Y 3 hour post Lactic if elevated? Y 3 dillon r post Lactic if elevated? Y Name Value Range Interpretation Code Description Data Maura rce(s) Supporting Document(s) PTT 25.1-36.5 Normal (applies to non-numeric resul ts) [facility] ID Date Data Source [id number] 11/07/2020 05:31:00 PM EDT [facility] 3 hour post Lactic if elevated? Y Name Value Range Interpretation Code Description Data Maura rce(s) Supporting Document(s) Lactic Acid 0.4-2.0 Normal (applies to non-numeric resu lts) [facility] ID Date Data Source [id number] 11/07/2020 05:23:00 PM EDT [facility] Name Value Range Interpretation Code Description Data Maura rce(s) Supporting Document(s) White Blood Count 4.8-10.8 Normal (applies to non-numeri c results) [facility] Red Blood Count 3.68-5.22 Normal (applies to non-numeric results) [facility] Hemoglobin 11.2-15.[address] [facility] Hematocrit 34.1-44.[address] [facility] Mean Corpuscular Volume 81-99 Normal (applies to non- numeric results) [facility] Mean Corpuscular Hemoglobin 27.0-33.0 Below low normal [facility] Mean Corpuscular HGB Conc 32.0-36.0 Normal (applies to no n-numeric results) [facility] Red Cell Distribution Width 11.5-14.5 Normal (appli es to non-numeric results) [facility] Platelet Count 580 X10 3/uL 130-450 Above high normal [facility] Mean Platelet Volume 9.5-12.7 Below low normal [facility] Imm Grans% (AUTO) 0 % 0-2 Normal (applies to non-numeri c results) [facility] Neutrophils % (AUTO) 77 % 40-75 Above high normal [facility] Lymphocytes % (AUTO) 11 % 21-46 Below low normal [facility] Monocytes % (AUTO) 9 % 5-12 Normal (applies to non-numer ic results) [facility] Eosinophils % (AUTO) 2 % 1-5 Normal (applies to non-num joleen results) [facility] Basophils % (AUTO) 0 % 0-1 Normal (applies to non-numer ic results) [facility] Imm Grans# (AUTO) 0.0-0.5 Normal (applies to non-numeri c results) [facility] Neutrophils # (AUTO) 1.5-8.1 Normal (applies to non-num joleen results) [facility] Lymphocytes # (AUTO) 1.0-3.1 Normal (applies to non-num joleen results) [facility] Monocytes # (AUTO) 0.2-1.3 Normal (applies to non-numer ic results) [facility] Eosinophils# (AUTO) 0.0-0.5 Normal (applies to non-nume sangeetha results) [facility] Basophils # (AUTO) 0.0-0.1 Normal (applies to non-numer ic results) [facility] ID Date Data Source [id number] 11/09/2020 06:45:00 AM EDT [facility] Name: SILVIA ALBERTO : 1965 A ge/Sex: 55F Ordering Provider: Haim Borrero IV, FNP Med Rec #: [id number] Reg Status: ADM IN Room #: 307-1 Date of Service: 11/07/20 Report Number: [id number] cc:Haim Borrero IV, ROXANNE; SUMMER Salas Send Report To: [id number] CT/CT Abdomen & Pelvis w Con Reason for exam: POST SURGICAL BLEEDING FROM DEHISCENCE FINDINGS: The lung bases are clear. The liver and spleen appear normal. The adrenals appear normal. The right and left kidneys appear normal. Gallbladder has been removed. The pancreas is within normal limits. There is a left-sided ostomy present and in the pelvic region there is an abscess identified with fluid and air in the central portion of the pelvis. That measures 8.3 x 6.9 cm and that does appear to be extending to the left halfof the skin where there is air in the abscess and tracking to the anterior abdominal wall in the wound. That is consistent with an abscess. Gynecological structures appear normal. IMPRESSION: Pelvic to lower abdominal abscess with a tract going to the left anterior abdominal wall where there is a midline incision and this tracts along the midline incision. Recommend drainage of the abscess and possibly debridement of the wound at the skin so that fluid in the subcutaneous fat can drain to the skin surface. While performing the above CT exam, the following dose reduction techniques wereused: *Automated exposure control *Adjustment of the mA and/or kV according to patient size *Use of iterative reconstruction technique CT Dose in mSv: 15.84 Contrast Agent in ml: Isovue 300 100CCS Method of Administration: Intraveneous REPORT SIGNATURE ON FILE Reported By: Renard Garg MD <Electronically signed by Raimundo Garg MD> 11/10/20 0856 Dictation Date/Time: 11/07/20 1741 Transcribed Date/Time: 11/09/20 0645 Special Needs Babysitter: BEBETO Name Value Range Interpretation Code Description Data Maura rce(s) Supporting Document(s) ID Date Data Source [id number] 11/08/2020 03:39:00 AM EDT [facility] Name Value Range Interpretation Code Description Data Maura rce(s) Supporting Document(s) Color,Urine Yellow Normal (applies to non-numeric resu lts) [facility] Clarity,Urine Clear Normal (applies to non-numeric re sults) [facility] Specific [place],Urine 1.001-1.030 Normal (applies to non- numeric results) [facility] PH,Urine 5.0-8.0 Normal (applies to non-numeric resul ts) [facility] Protein,Urine Negative Normal (applies to non-numeric re sults) [facility] Glucose,Urine (UA) Negative Normal (applies to non-numer ic results) [facility] Ketones,Urine Negative Normal (applies to non-numeric re sults) [facility] Blood,Urine Negative Normal (applies to non-numeric resu lts) [facility] Bilirubin,Urine Negative Normal (applies to non-numeric results) [facility] Urobilinogen,Urine Norm 0.2-1 Normal (applies to non-numer ic results) [facility] Leukocyte Esterase,Urine Negative [facility] Nitrite,Urine Negative Normal (applies to non-numeric re sults) [facility] ID Date Data Source [id number] 11/08/2020 03:39:00 AM EDT [facility] Name Value Range Interpretation Code Description Data Maura rce(s) Supporting Document(s) WBC,URINE 0-10 Normal (applies to non-numeric resul ts) [facility] RBC,Urine 0-2 Normal (applies to non-numeric resul ts) [facility] Hyaline Casts,Ur None Seen Normal (applies to non-numeric results) [facility] Bacteria,Urine None Seen Normal (applies to non-numeric r esults) [facility] Epithelial Cell,Ur None-Few Normal (applies to non-numer ic results) [facility] ID Date Data Source [id number] 10/30/2020 03:12:00 PM EDT [facility] Name Value Range Interpretation Code Description Data Maura rce(s) Supporting Document(s) [facility] ID Date Data Source Urine dip (IH) 10/28/2020 12:00:00 AM EDT eCW1 ([facility]) Name Value Range Interpretation Code Description Data Maura rce(s) Supporting Document(s) clear Appearance eCW1 ([facility]) yellow Urine Color eCW1 ([facility]) Glucose [Mass/volume] in Urine by Automated test strip neg Glucose eCW1 ([facility]) neg Ketones eCW1 ([facility]) 1.010 Specific [place] eCW1 ([facility]) neg Bilirubin eCW1 ([facility]) Protein [Mass/volume] in Urine by Automated test strip + Protein eCW1 ([facility]) ++ Blood eCW1 ([facility]) 6.0 Ph eCW1 ([facility]) trace Leukocytes eCW1 ([facility]) neg Nitrite eCW1 ([facility]) neg Urobilinogen eCW1 ([facility]) ID Date Data Source [id number] 10/23/2020 08:10:24 PM EDT [facility] Name Value Range Interpretation Code Description Data Maura rce(s) Supporting Document(s) Progress Note [facility] YMTDFo2dFrBCGyQb29/EVUkmYZPmv7GeSDyoEOg2KKlfGJXhE5AdTTM8kP7vJYO6DGdPZgFcJaGcICH8 lbm NiFhmISkTlNQQbZxqKPnRaXVyrIigdkUTpNL3IyWN7KVFoI12cLFTbZILxC5PrIDU4LeF+Qp1ZOLQluY QpUT2BZooL9V8vn9qSCl7ntL6orVVp6KZ3+pP6G7fUnB2uPYQFA5hgXu4/gRDj1vSWPnj12epS07Cv6u W5lDRj+rjykGPjMCly4PLPpH3Fvy/eSubt148iSlos xxH5f/M/l4TXWfNa0r+JxW2+Q01r2Jj6qQykYbNKaO+tR9906VW3t1Ug0tUIlpu4OVnfNWeTyKT3wIjj /6Sgzdw4Irj+b48siNqByahHejDGpuPBRBnxjdgcBIfVgh7EEYiAFDUY3YNZLbiycrHkWXnlX3jLFttr QwGGUQm+Jailyn+coKufLLD9MZFGBeUHDadbSxtVsFF10Y [file] BBTzBMYlWTCdKyRmSX7uIFRAFp0+JGnmqBKmnHjuJNZWYbQ3Ebz5QDuyQQVDBm8I ID Date Data Source [id number] 10/13/2020 12:12:32 PM EDT [facility] Name Value Range Interpretation Code Description Data Maura rce(s) Supporting Document(s) Discharge Summary [facility] NAFYUj0pPqFWFwHd07/BFDbmNOZgl8HcEQgdVKu0FRtvNRYeR5YwCAH8tF6aJSU9OQiOKjOnTmIjQcB4 lbm RlXfkVIoZcUTPiXsbBDwUrEGnsMcwqvQNyQC4GeLJ0PYAwS50gKCMiGJEtW7HsEED8DpD+Ye0OXKFzdI BvDW8LXrjP9EnLx0pCLJ8h5O1uhCRq53TG52UcseW9ig0quBFgHE4jxOdiZzkHplJ052wUOoRyU+ZzaI 179s1rja8S3Gcc0kWyF6I+3v5uDFvMUFi08+rXMHbE NBN//pZSk6Gh2oa1i6jNzgYqMhwcS0Q/hgbUS2txfgSlMbvz8dRxKx2CJUJWzaiU2gX0okzknPc5dN6L eHrykKPhfmR9DI0zhiFQbmFtJwb1C1eyLwJ6XWgMMnCtTNLIOvjxVMJJCH4ViFXt56kPSAXQZNd0jpAa CxgQR4lqqiSYP5vS2UtbNlUl+vpbA7+5FB+31rJtBZ 931vGokAYCAYDeUrdNhteiEskpY7uekb4s6deAn/tanner/ggdkPHZz/Kts5uB6b+GzH6aPjSNqxrst8hQf [file] AgICAgICAgICAgICAgICAgICAgICAgICAgICAgICAgICAgICAgICAgICAgICAgICAgICAgICAgICAgIC AgICAgICAgICAgICAgICAgICAgICAgICAgICANCiAgICAgICAgICAgICAgICAgICAgICAgICAgICAgIC AgICAgICAgICAgICAgICAgICAgICAgICAgICAgICAg ICAgICAgICAgICAgICAgICAgICAgICAgICAgICAgICAgICAgICANCiAgICAgICAgICAgICAgICAgICAg ICAgICAgICAgICAgICAgICAgICAgICAgICAgICAgICAgICAgICAgICAgICAgICAgICAgICAgICAgICAg ICAgICAgICAgICAgICAgICAgICANCiAgICAgICAgIC AgICAgICAgICAgICAgICAgICAgICAgICAgICAgICAgICAgICAgICAgICAgICAgICAgICAgICAgICAgIC AgICAgICAgICAgICAgICAgICAgICAgICAgICAgICANCiAgICAgICAgICAgICAgICAgICAgICAgICAgIC AgICAgICAgICAgICAgICAgICAgICAgICAgICAgICAg ICAgICAgICAgICAgICAgICAgICAgICAgICAgICAgICAgICAgICAgICANCiAgICAgICAgICAgICAgICAg ICAgICAgICAgICAgICAgICAgICAgICAgICAgICAgICAgICAgICAgICAgICAgICAgICAgICAgICAgICAg ICAgICAgICAgICAgICAgICAgICAgICANCiAgICAgIC AgICAgICAgICAgICAgICAgICAgICAgICAgICAgICAgICAgICAgICAgICAgICAgICAgICAgICAgICAgIC AgICAgICAgICAgICAgICAgICAgICAgICAgICAgICAgICANCiAgICAgICAgICAgICAgICAgICAgICAgIC AgICAgICAgICAgICAgICAgICAgICAgICAgICAgICAg ICAgICAgICAgICAgICAgICAgICAgICAgICAgICAgICAgICAgICAgICAgICANCiAgICAgICAgICAgICAg ICAgICAgICAgICAgICAgICAgICAgICAgICAgICAgICAgICAgICAgICAgICAgICAgICAgICAgICAgICAg ICAgICAgICAgICAgICAgICAgICAgICAgICANCiAgIC AgICAgICAgICAgICAgICAgICAgICAgICAgICAgICAgICAgICAgICAgICAgICAgICAgICAgICAgICAgIC AgICAgICAgICAgICAgICAgICAgICAgICAgICAgICAgICAgICANCjw/zSDfN2wzzOYbzbM1D8jqCx3OGa 2TBZ1lx8VlPLHkSLxqhaIoLptUOxCuFYNsZaaMAeb3 KMtsXW4WrZIyP8XvD4OeFNyqLE4OWSAxGLWamCIcDBFeWFVcJnY7USNnPIpbME3LsRMpHJywGPPdDDIg NxTqNRAfXVZmTQZnMKSuFVUEEDByRTUfXrAkEVhaGJ0Oq2RglEI3EMn+Lz7HVX6qj9EcPShcBFDyIX9k jp1ODIvTZtMnS4DrrdF7UHU3ETEnFx1GWVOaIFDbnK PlUXOzFNLAXnPjZ2WvyJ90ESOXMf0+DYjgpyTwDipSRcQ3ZMWdh3MtPEs2EK6DCFNoLBu1xQVlHApfG4 sbppgbJLQ2cS7yrnzySpwjJRT4kpAsIRnhG8FsnaodFVEtGGZuLa0vKV5gRCVdCCJ0RcFmIGOCAY5JFD HdUGVsrBLySBEjNSBEAJ5YZHslANF5FCYbqiQegPCj RLuyTH2JUFRjgaIeTpzrVFZSQNh+Bd5KWQ3lj0NgWAr8GQIyQG7dlv4ETWzCTlNuZ0U6sCKlU3E5GGrq Qa2BWGMiALHcOnMtAFAJVJnxKC6NIQ4wtqL1RD3NuETnYGUjVQQgmTKqEMb5S42ihLFkJBilMK1HICE+ Nadya+Fd9ZAZOmEXPoZQRbBaAqMORBSdWiH3JmV1BId4 LsZ4AlIJ79xIrpfjIwUEidJJ8HZL1mRBInTWDFKX3NmZYhaS0zczHlICKcXTUAHnUnW28hcTBhOCNwVG U7GTFaUl2YXQSeF2PpucRmxFgyysXxVSVgOPVASS9PUZedrbXlgPWxyAjgJM83oEfvEH2JKz1OPzSsUJ 5epx8SoYMhEs0SYQR0VT6CXJSlVLOfFIAkHRL1GPDt JgQvHCmuVVNaRCDiQXV3YTJcVPGvIE8VRgPtBHYsCxi4HKCzYGBtDFGvil0USXBeELLtGUG7WBJrWERe WKFeBSbgOYQmQMVjLNY3XACdBEDbCQ0WSaEzZEHvQUYpDBTeLCQpDOBvcm8HBUEsOOUyXsTxRMOqPCUr FSKcSHrsKTUfWRN6TOT9URPbRNPsZB0FDgMxYENyFX M1UXrgEOLrRHGjuw8PCVKnDLXaDIs6EUAcIUEhEFBfADqkXZUwPQAsWUO2ZEAqAKPrXN0OOnQkTYHkJZ QhWOFfKYNsKBQysh4DMAHoZESsJeN0OZHaGLQoUAZpSQgoOSWjRUHiGZBbDNLpLRJeWH3QYcBfAQMnNN BsFkbqAYHwWIZvxf3EZTGhIKQwJLG4CXIbUKVkYJQg RRevUTJiOXL9Qmn1TNDiSCXaQH5UEoTiGBMoYMB6IsahIIXvZQLgwr1VITRdRZKsYdHsJyJjGOLjZWUg JHqsIZPvBFL1DpA6UKDcBPDaOB1DYwJjLFUvHPM9SrjtOKVrFCDhla2ZCRAjXABiHrb5JgMzALMnPNIb OHqsVUHpZBL9BXo2LXZoXLWtOP9OSuPnHFUsVVqqLc haBVTeKUZzxz3QLNVbYCHdURQbAtWzFYLlWHKrOVbqYVNuYPO6GdRhGIQcGOXxPF9LJsYgFWPeTTm1He ApBVMbIJOlyk6DNNIlRFQfEFoaNeXuMXVkISQpVBsaEYNkIRGsZdO1HDQmZFHfSJ4JShVnVKIcIoO3Do GfSSBiJGKuer0ZHYXfOHZgMQG4VkPqXSQhTVVyBVgz QBPnQHSfAED6RRFbRHKqNO2CByKnAREoBuF1UaDsWYWkYYOgbr8LRZRlJNLkSew8GAXgYEUkLTXrBVou REHqISU0ZpSfPIPbCWNnCO8WYlDuBQMoBgh4SAJkHOEiDNDlxp4CZAMpWUVjJaL3WNDvTNDvBVCmYVap ZWCoKAS6KGA6HMKiHVEcFK6BIqLgGLCrEcv9JOOmTP YhZVBojq1YQPUcDVIaBOF6KHKsWIGiINMcVWshWDOtEOV1TsC3SSVtDKIrSO5LBxDvYQrkGJJVAct1FO wrC3w3WNB4CF0KU4Yxt1OoQUTfSQJKWKsxIK3tinTlURXtUc9RT9iTTol8WDVaKoUkGeIbQKL8LqssBF L2LEMeNwSvPXC4IEu1KK9bWBB6BINbXyQgCoJ6Mxuo INI4UOKdDWI3JdCyFgN5FRKxGfVeVB9XYd9PKhZ1QOL2iWDhWy3FFay6NtzTCiQzDX1OWNs= ID Date Data Source [id number] 10/06/2020 02:35:10 PM EDT [facility] Name Value Range Interpretation Code Description Data Maura rce(s) Supporting Document(s) Consultation [facility] HABEMf5mZcWXRvNr03/XCOnnATScw9TgQQlxFZr5NJniHXSnF8ZfBVA2eB8oJCC4IUePRiRgPyQfVbDf lbm OjAdbJGlLkDMMaRvqXKcTmFVmeIpvleVNxDE9HaZL7ADVdE31oSZEkXGCvP2AtHCHoKxY+Wd2UEHHylV FrYD8RBjlG0F2paoGNTr8+3n5Z1f15sg3HV+/Be67nRMSrzJMV6aKsnOfliiWaxsg8gtzo85/nzeMqJg 9bP9315qCXawyt1b1nschkjCFVd/7ZpjS1HIwr/9cf q3oEw2c4+99E/ZjrrB+dD0MStDzVAc4dmUD9iI5fBgcvz9RManYGEG+sBq+ZOHykE2oT7S/2jn4V/X8L 84XUiSCZCKsaFUmUQd3boLoMWuhegYPjPHrtTC57UZQDRfVcYPIAHjxAPXyUXm2dxZsey96rQLYFcM65 D6HuE2BA6foRZBCQIX7o2KJPiROO5c0TYJ3byfxzpU lgqQzg7PnmgPtWGxS0Avel8YZZyK9Ob8hRowjL7c4vhHbPvS6BTU1a/UhviYFJKnRWHj1G9hrYrtzzgt MlaNz83nsQUx8hy7NPs3OjttH/r4rr7cG+p0dV90Y8VB+Ox3Zpho9UKqgJtgeYl5AxjGD1XZG++5Nmbh BkyrOqiVEIdjaYxSZdLafhuH/YXSdIhNmp6TJ4wkN9 1MuBBiYwJW5Nf3KDqWtwCiZBcVhNmUG+EW7GHwPjLYDslLr7WMj4P+DeT98vFjs+sJYbH0zcDP3NJO2k +lJXF+tiIXzxoLLJTruL4aGB4HLf8vO6hwcmM6gADWbCKfc/eEs70MyhM9/HANNAH/8wv1SkxxtPNNnz0eA [file] [id number] ID Date Data Source [id number] 10/06/2020 06:18:27 AM EDT [facility] Name Value Range Interpretation Code Description Data Maura [facility] region(s) Supporting Document(s) Leukocytes [#/volume] in Blood by Automated count 5.7 10*3/uL 4-10 [facility] Erythrocytes [#/volume] in Blood by Automated count 2.96 10*6/uL 4.1- 5.3 L [facility] Hemoglobin [Mass/volume] in Blood 8.6 g/dL 11.5-15.5 L [facility] Hematocrit [Volume Fraction] of Blood by Automated count 26.4 % 3 6-45 L [facility] Erythrocyte mean corpuscular volume [Entitic volume] by Auto mated count 89.3 fL 80-96 [facility] Erythrocyte mean corpuscular hemoglobin [Entitic mass] by Automated count 29.0 pg 27-33 [facility] Erythrocyte mean corpuscular hemoglobin concentration [Mass/volume] by Automated count 32.5 g/dL 32.0-36.[facility] width [Ratio] by Automated count 15.2 % 11.5-14.5 H [facility] Platelets [#/volume] in Blood by Automated count 160 10*3/uL 150-400 [facility] Differential cell count method - Blood [facility] Neutrophils/100 leukocytes in Blood by Automated count 60 % [facility] Lymphocytes/100 leukocytes in Blood by Automated count 20 % [facility] Monocytes/100 leukocytes in Blood by Automated count 13 % [facility] Eosinophils/100 leukocytes in Blood by Automated count 6 % [facility] Basophils/100 leukocytes in Blood by Automated count 1 % [facility] Neutrophils [#/volume] in Blood by Automated count 3.45 10*3/uL 1.8-7 .0 [facility] Lymphocytes [#/volume] in Blood by Automated count 1.16 10*3/uL 1.2-4 .0 L [facility] Monocytes [#/volume] in Blood by Automated count 0.72 10*3/uL 0-0.8 [facility] Eosinophils [#/volume] in Blood by Automated count 0.36 10*3/uL 0-0.5 [facility] Basophils [#/volume] in Blood by Automated count 0.04 10*3/uL 0-0.2 [facility] Nucleated erythrocytes/100 leukocytes [Ratio] in Blood by Automated count 0 /100{WBCs} 0-0 [facility] ID Date Data Source [id number] 10/06/2020 06:41:03 AM [facility] Name Value Range Interpretation Code Description Data Maura rce(s) Supporting Document(s) Bicarbonate [Moles/volume] in Serum 31 mmol/L 22-29 H [facility] Chloride [Moles/volume] in Serum or Plasma 98 mmol/L 98-107 [facility] Creatinine [Mass/volume] in Serum or Plasma 0.54 mg/dL 0.50-0.90 [facility] Glucose [Mass/volume] in Serum or Plasma 109 mg/dL 70-140 [facility] Potassium [Moles/volume] in Serum or Plasma 3.4 mmol/L 3.4-5.1 [facility] Sodium [Moles/volume] in Serum or Plasma 135 mmol/L 136-145 L [facility] Urea nitrogen [Mass/volume] in Serum or Plasma 9 mg/dL 6-20 [facility] Anion gap 3 in Serum or Plasma 7 mmol/L 8-15 L [facility] Osmolality of Serum or Plasma by calculation 279 mosm/kg 275-300 [facility] Creatinine/Urea nitrogen [Mass Ratio] in Serum or Plasma 17 [facility] Calcium [Mass/volume] in Serum or Plasma 8.0 mg/dL 8.6-10.0 L [facility] Glomerular filtration rate/1.73 sq M pre dicted among non-blacks [Volume Rate/Area] in Serum or Plasma by Creatinine-based formula (MDRD) >6 0 [facility] Glomerular filtration rate/1.73 sq M pre dicted among blacks [Volume Rate/Area] in Serum or Plasma by Creatinine-based formula (MDRD) >60 [facility] ID Date Data Source [id number] 10/05/2020 11:05:24 AM EDT [facility] Name Value Range Interpretation Code Description Data Maura rce(s) Supporting Document(s) Leukocytes [#/volume] in Blood by Automated count 5.6 10*3/uL 4-10 [facility] Erythrocytes [#/volume] in Blood by Automated count 3.10 10*6/uL 4.1- 5.3 L [facility] Hemoglobin [Mass/volume] in Blood 9.0 g/dL 11.5-15.5 [facility] Hematocrit [Volume Fraction] of Blood by Automated count 27.6 % 3 6-45 L [facility] Erythrocyte mean corpuscular volume [Entitic volume] by Auto mated count 89.0 fL 80-96 [facility] Erythrocyte mean corpuscular hemoglobin [Entitic mass] by Automated count 28.9 pg 27-33 [facility] Erythrocyte mean corpuscular hemoglobin concentration [Mass/volume] by Automated count 32.5 g/dL 32.0-36.0 [facility] distribution width [Ratio] by Automated count 15.1 % 11.5-14.5 H [facility] Platelets [#/volume] in Blood by Automated count 222 10*3/uL 150-400 [facility] Confirmed ID Date Data Source [id number] 10/03/2020 06:00:43 PM EDT [facility] US ABDOMEN LIMITED [id number] RESULTInte rpreted by:Sharon Sandoval, [facility] INFORMATION: Exam: US Abdomen; Limited Exam date and time: 10/03/2020 5:14 PM Age: 55 years old Clinical indication: Other: Bruising; Patient HX: PT had blood thinner shots in rlq yesterday in two areas, no other trauma, brusing seen this afternoon from her right hip towards midsection RT side; Additional info: Rlq eccymosis TECHNIQUE: Imaging protocol: US abdomen. Real time ultrasound with image documentation. Limited exam focused on the region of clinical interest. COMPARISON: CT Private^ABDOMEN ROUTINE (Adult) 09/24/2020 8:42 PM FINDINGS: Soft tissues: The area areas of clinical clinical concern in the right lower quadrant abdominal wall were evaluated. Two small anechoic fluid collections are seen 1 measuring about 1.1 by 1.0 x 0.7 cm and another measuring 1.0 x 0.6 x 0.8 cm are noted possibly representing small hematomas. Streaky hypoechoic opacities are also seen in the subcutaneous regions of the right lower quadrant which are nonspecific but could represent fluid or blood. No large hematoma. IMPRESSION: No large hematoma. Two small fluid collections and streaky hypoechoic foci are seen in the soft tissues of the right lower quadrant.THIS DOCUMENT HAS BEEN ELECTRONICALLY SIGNED BY SHARON SANDOVAL MDThis document has been electronically signed by Sharon Sandoval MD on 10/03/2020 6:00 PM Name Value Range Interpretation Code Description Data Maura rce(s) Supporting Document(s) ID Date Data Source [id number] 10/03/2020 03:13:53 PM EDT [facility] Name Value Range Interpretation Code Description Data Maura rce(s) Supporting Document(s) [facility] PPMZQr5lMsFEKiTh86/ZLTlsERSht4ApAUrfIQl3WSpgRUMeY6TmABN4bM5tZDP9SEyIBgAvPvDiPqT5 [facility] [file] ID Date Data Source [id number] 10/01/2020 08:48:20 AM EDT [facility] Name Value Range Interpretation Code Description Data Maura rce(s) Supporting Document(s) Consultation [facility] UVJUId6oEmBNRnQz49/IPQwxPSLky3DzZDbiCUx3FEdhCKSqO5LlNOS4tH6iBJG7VXxYGzAwSwIjLoH2 lbm [file] VmMBR6QEhtFVMrKQU+GI3eYAz+Ly8Va1AxysE9jfZvEFxvEPY8SK3TSHTPQ3MEPr== ID Date Data Source [id number] 09/30/2020 03:04:00 PM EDT [facility] Name Value Range Interpretation Code Description Data Maura e(s) Supporting Document(s) History and Physical [facility] UYBVLp0iYdHWWqFf28/YZPnyCSTns2XbMQedMNk4IMsgTMZbJ2QkMXW5vM0nNEJ2RSfMIwHwNoIoGiA7 lbm [file] hUCbkNqaWREDSbUiKav2PDuiYGHNMx3C ID Date Data Source [id number] 09/30/2020 12:51:47 PM EDT [facility] Name Value Range Interpretation Code Description Data Maura rce(s) Supporting Document(s) Discharge Summary [facility] GKNCQf2lObYCCaLd53/LVDszUTAea7TmKIhcWRm7SOacRZLxD9ZpKEY0wA5vCND6QRoUDvWrXcGlEpY8 lbm TdNgkSZzFiWDLxOgbBLjLcMHfpAmnolABcVN6IpQI9CGDiY69dIDGcEGOcB0MoNDG3QXP+Ol4SLOPccF DqOG4YNxnA9Zsyk2mS0kbP/F6JYKQTk8kaltp9TMaS4QAfp7GuI2OgCZr+fNYJ8iWPQMjMne2/S3Ipci l6uGUKHjl6LOrguAvexaxKSVmRSj2+Yg9YTshHpp10 V14CXcSP++1wjAdq6K300xqwHLjNuk60pMZ7O/HaO5vD7MZxjDI5ZfcleHkcNSadEJuUZfTYSf+wwb8Z A8QRQKKkBB1MFD7JlsejCVJzYTGutBuHTspFl7OvQAKfIHUzRwMGIcJXgLPHxShKNo1/tUUlB1G9gfcH qDbYsWY9OEPMNME0zPTLHPRBKWE1G8P8MqRxaLQmz0 [file] falATabDktBJCWIiK8NBt7QNfoXRHVIk3Y ID Date Data Source [id number] 09/30/2020 06:45:49 AM EDT [facility] Name Value Range Interpretation Code Description Data Maura rce(s) Supporting Document(s) Discharge Summary [facility] LVNOZu3qCqAMDhEe44/EITfuHJGlk3WqKFszWGw3EAedTHNnP8JpSKZ0cG1uKFN3KCfQDqHsMsXdTjM4 lbm [file] storyboard artist+VHPnaQmNUeme34o6uzwPsyvrLSXiBiB9qir1AhG2bnVTiToWBazwxZ5gKrGT1WjvuG8pRdIxPQoc8 [file] uhxGFypHecCINMHkS2Ebo6CWfnIKWGDi2G ID Date Data Source [id number] 09/30/2020 04:50:36 AM EDT [facility] Name Value Range Interpretation Code Description Data Maura rce(s) Supporting Document(s) Leukocytes [#/volume] in Blood by Automated count 8.0 10*3/uL 4-10 [facility] Erythrocytes [#/volume] in Blood by Automated count 2.77 10*6/uL 4.1- 5.3 L [facility] Hemoglobin [Mass/volume] in Blood 8.1 g/dL 11.5-15.5 [facility] Hematocrit [Volume Fraction] of Blood by Automated count 24.7 % 3 6-45 L [facility] Erythrocyte mean corpuscular volume [Entitic volume] by Auto mated count 89.1 fL 80-96 [facility] Erythrocyte mean corpuscular hemoglobin [Entitic mass] by Automated count 29.4 pg 27-33 [facility] Erythrocyte mean corpuscular hemoglobin concentration [Mass/volume] by Automated count 33.0 g/dL 32.0-36.0 [facility] distribution width [Ratio] by Automated count 15.6 % 11.5-14.5 [facility] Platelets [#/volume] in Blood by Automated count 636 10*3/uL 150-400 [facility] ID Date Data Source [id number] 09/29/2020 01:56:00 PM EDT [facility] Name Value Range Interpretation Code Description Data Maura rce(s) Supporting Document(s) SARS-CoV-2 RNA 2019 nCoV Real-Time RT[facility]: [facility] This lab was ordered by [facility] and reported by [facility]. ID Date Data Source [id number] 09/29/2020 07:21:56 PM EDT [facility] Name Value Range Interpretation Code Description Data Maura rce(s) Supporting Document(s) Specimen source [Identifier] of Unspecified specimen [facility] SARS-CoV-2 RNA 2019 nCoV Real-Time RT-PCR: NOT DETECTED [facility] Assay Performed [facility] Patients first test for condition [facility] Patient employed in healthcare setting [facility] Patient has symptoms related to [facility] When did you start to experience these symptoms [Date and time] [Phen X] [facility] Patient was hospitalized because of this condition [facility] patient was admitted to ICU for [facility] Patient resides in a congregate care setting [facility] status [facility] ID Date Data Source [id number] 09/29/2020 12:06:42 PM EDT [facility] Name Value Range Interpretation Code Description Data Maura rce(s) Supporting Document(s) Consultation [facility] WIQHSv3dUiWGMuIv10/GWFslKAFku2ViKSjcKRx1NDqbWEWtE5LjFZQ0uJ2dRZU0ZBuHUtHkYsJxAhI1 lbm DhShrHMmQkXXRwNeaAJyDeLZdrFsnbuGFmJE0GyIZ2ELFeS75bPLWaVJMlI0JyCKY4UIQ+Ew8JBZMibA AxYM0UBppQ6Tdzd8a4QO9+YP+WgQGyTGCKDKhF3ddfXkkxoOupj1Un5jKYZ58Hv3Fr75S/kxBVDB0syc Px4BwjpciuHjz5F++aM17YLqA++4BdB3BTLCM1U04M 9fZoS7V198r0kTjKd1gpUGWEZCLBKVIO+1XJv0/AHCzwykBgGhC9hLAGQSWAX9jTy9Cx7o4uTxbiMWUs lNAnisNJvKdLmKe8UCCi8A68uGUn8Z9RnCAwMKWUafw7U2SdVBFyJZhQwyR64ASL79FKc/BCTe7oSUBh CPIQMVTJD4MgsERyVzFmfPI4QwW6uTaZKxGLo92+[facility] [file] ScNfDcGdF8OGV1ENVoRrZ1DoA7Yu2bABNCSy7+GFmfhCLqaHanCFPRUbnsYnNTRhOzZK5RHLh= ID Date Data Source [id number] 09/29/2020 05:55:15 AM EDT [facility] Name Value Range Interpretation Code Description Data Maura e(s) Supporting Document(s) Leukocytes [#/volume] in Blood by Automated count 8.7 10*3/uL 4-10 [facility] Erythrocytes [#/volume] in Blood by Automated count 2.71 10*6/uL 4.1- 5.3 L [facility] Hemoglobin [Mass/volume] in Blood 7.9 g/dL 11.5-15.5 L [facility] Hematocrit [Volume Fraction] of Blood by Automated count 24.3 % 3 6-45 L [facility] Erythrocyte mean corpuscular volume [Entitic volume] by Auto mated count 89.7 fL 80-96 [facility] Erythrocyte mean corpuscular hemoglobin [Entitic mass] by Automated count 29.3 pg 27-33 [facility] Erythrocyte mean corpuscular hemoglobin concentration [Mass/volume] by Automated count 32.6 g/dL 32.0-36.0 [facility] Erythrocyte distribution width [Ratio] by Automated count 15.6 % 11.5-14.5 H [facility] Platelets [#/volume] in Blood by Automated count 666 10*3/uL 150-400 H [facility] ID Date Data Source [id number] 09/29/2020 06:12:42 AM [facility] Name Value Range Interpretation Code Description Data Maura rce(s) Supporting Document(s) Phosphate [Mass/volume] in Serum or Plasma 2.6 mg/dL 2.5-4.5 [facility] ID Date Data Source [id number] 09/29/2020 06:12:42 AM [facility] Name Value Range Interpretation Code Description Data Maura rce(s) Supporting Document(s) Magnesium [Mass/volume] in Serum or Plasma 1.8 mg/dL 1.6-2.6 [facility] ID Date Data Source [id number] 09/28/2020 05:12:13 PM [facility] Name Value Range Interpretation Code Description Data Maura rce(s) Supporting Document(s) Leukocytes [#/volume] in Blood by Automated count 9.7 10*3/uL 4-10 [facility] Erythrocytes [#/volume] in Blood by Automated count 2.96 10*6/uL 4.1- 5.3 L [facility] Hemoglobin [Mass/volume] in Blood 8.6 g/dL 11.5-15.5 L [facility] Hematocrit [Volume Fraction] of Blood by Automated count 26.4 % 3 6-45 L [facility] Erythrocyte mean corpuscular volume [Entitic volume] by Auto mated count 89.4 fL 80-96 [facility] Erythrocyte mean corpuscular hemoglobin [Entitic mass] by Automated count 29.0 pg 27-33 [facility] Erythrocyte mean corpuscular hemoglobin concentration [Mass/volume] by Automated count 32.4 g/dL 32.0-36.0 [facility] Erythrocyte distribution width [Ratio] by Automated count 15.2 % 11.5-14.5 H [facility] Platelets [#/volume] in Blood by Automated count 668 10*3/uL 150-400 H [facility] ID Date Data Source [id number] 09/28/2020 06:02:51 AM [facility] Name Value Range Interpretation Code Description Data Maura rce(s) Supporting Document(s) Leukocytes [#/volume] in Blood by Automated count 9.9 10*3/uL 4-10 [facility] Erythrocytes [#/volume] in Blood by Automated count 2.66 10*6/uL 4.1- 5.3 L [facility] Hemoglobin [Mass/volume] in Blood 7.8 g/dL 11.5-15.5 L [facility] Hematocrit [Volume Fraction] of Blood by Automated count 23.7 % 3 6-45 L [facility] Erythrocyte mean corpuscular volume [Entitic volume] by Auto mated count 89.1 fL 80-96 [facility] Erythrocyte mean corpuscular hemoglobin [Entitic mass] by Automated count 29.2 pg 27-33 [facility] Erythrocyte mean corpuscular hemoglobin concentration [Mass/volume] by Automated count 32.8 g/dL 32.0-36.0 [facility] E[facility]th[facility] distribution width [Ratio] by Automated count 15.7 % 11.5-14.5 H [facility] Platelets [#/volume] in Blood by Automated count 672 10*3/uL 150-400 [facility] ID Date Data Source [id number] 09/28/2020 06:27:05 AM [facility] Name Value Range Interpretation Code Description Data Maura rce(s) Supporting Document(s) Bicarbonate [Moles/volume] in Serum 29 mmol/L 22-29 [facility] Chloride [Moles/volume] in Serum or Plasma 100 mmol/L 98-107 [facility] Creatinine [Mass/volume] in Serum or Plasma 0.46 mg/dL 0.50-0.90 L [facility] Glucose [Mass/volume] in Serum or Plasma 100 mg/dL 70-140 [facility] Potassium [Moles/volume] in Serum or Plasma 3.6 mmol/L 3.4-5.1 [facility] Sodium [Moles/volume] in Serum or Plasma 136 mmol/L 136-145 [facility] Urea nitrogen [Mass/volume] in Serum or Plasma 8 mg/dL 6-20 [facility] Anion gap 3 in Serum or Plasma 7 mmol/L 8-15 L [facility] Osmolality of Serum or Plasma by calculation 280 mosm/kg 275-300 [facility] Creatinine/Urea nitrogen [Mass Ratio] in Serum or Plasma 18 [facility] Calcium [Mass/volume] in Serum or Plasma 8.1 mg/dL 8.6-10.0 L [facility] Glomerular filtration rate/1.73 sq M pre dicted among non-blacks [Volume Rate/Area] in Serum or Plasma by Creatinine-based formula (MDRD) >6 0 [facility] Glomerular filtration rate/1.73 sq M pre dicted among blacks [Volume Rate/Area] in Serum or Plasma by Creatinine-based formula (MDRD) >60 [facility] ID Date Data Source [id number] 09/28/2020 06:27:05 AM [facility] Name Value Range Interpretation Code Description Data Maura rce(s) Supporting Document(s) Magnesium [Mass/volume] in Serum or Plasma 1.8 mg/dL 1.6-2.6 [facility] ID Date Data Source [id number] 09/28/2020 06:27:05 AM [facility] Value Range Interpretation Code Description Data Maura rce(s) Supporting Document(s) Phosphate [Mass/volume] in Serum or Plasma 3.0 mg/dL 2.5-4.5 [facility] ID Date Data Source [id number] 09/27/2020 02:05:12 PM [facility] Value Range Interpretation Code Description Data Maura rce(s) Supporting Document(s) Leukocytes [#/volume] in Blood by Automated count 14.1 10*3/uL 4-10 H [facility] Erythrocytes [#/volume] in Blood by Automated count 2.92 10*6/uL 4.1- 5.3 L [facility] Hemoglobin [Mass/volume] in Blood 8.7 g/dL 11.5-15.5 [facility] Hematocrit [Volume Fraction] of Blood by Automated count 25.9 % 3 6-45 L [facility] Erythrocyte mean corpuscular volume [Entitic volume] by Auto mated count 88.8 fL 80-96 [facility] Erythrocyte mean corpuscular hemoglobin [Entitic mass] by Automated count 30.0 pg 27-33 [facility] Erythrocyte mean corpuscular hemoglobin concentration [Mass/volume] by Automated count 33.7 g/dL 32.0-36.0 [facility] Erythrocyte distribution width [Ratio] by Automated count 15.0 % 11.5-14.5 [facility] Platelets [#/volume] in Blood by Automated count 710 10*3/uL 150-400 [facility] ID Date Data Source [id number] 09/27/2020 03:25:32 AM [facility] Value Range Interpretation Code Description Data Maura rce(s) Supporting Document(s) Leukocytes [#/volume] in Blood by Automated count 12.8 10*3/uL 4-10 H [facility] Erythrocytes [#/volume] in Blood by Automated count 2.56 10*6/uL 4.1- 5.3 [facility] Hemoglobin [Mass/volume] in Blood 7.6 g/dL 11.5-15.5 [facility] Hematocrit [Volume Fraction] of Blood by Automated count 22.5 % 3 6-45 [facility] Erythrocyte mean corpuscular volume [Entitic volume] by Auto mated count 88.1 fL 80-96 [facility] Erythrocyte mean corpuscular hemoglobin [Entitic mass] by Automated count 29.9 pg 27-33 [facility] Erythrocyte mean corpuscular hemoglobin concentration [Mass/volume] by Automated count 33.9 g/dL 32.0-36.0 [facility] Erythrocyte distribution width [Ratio] by Automated count 15.0 % 11.5-14.5 [facility] Platelets [#/volume] in Blood by Automated count 641 10*3/uL 150-400 [facility] ID Date Data Source [id number] 09/27/2020 03:40:17 AM [facility] Value Range Interpretation Code Description Data Maura rce(s) Supporting Document(s) Magnesium [Mass/volume] in Serum or Plasma 1.5 mg/dL 1.6-2.6 [facility] ID Date Data Source [id number] 09/27/2020 03:40:17 AM [facility] Value Range Interpretation Code Description Data Maura rce(s) Supporting Document(s) Bicarbonate [Moles/volume] in Serum 28 mmol/L 22-29 [facility] Chloride [Moles/volume] in Serum or Plasma 100 mmol/L 98-107 [facility] Creatinine [Mass/volume] in Serum or Plasma 0.48 mg/dL 0.50-0.90 L [facility] Glucose [Mass/volume] in Serum or Plasma 108 mg/dL 70-140 [facility] Potassium [Moles/volume] in Serum or Plasma 3.6 mmol/L 3.4-5.1 [facility] Sodium [Moles/volume] in Serum or Plasma 136 mmol/L 136-145 [facility] Urea nitrogen [Mass/volume] in Serum or Plasma 10 mg/dL 6-20 [facility] Anion gap 3 in Serum or Plasma 7 mmol/L 8-15 L [facility] Osmolality of Serum or Plasma by calculation 281 mosm/kg 275-300 [facility] Creatinine/Urea nitrogen [Mass Ratio] in Serum or Plasma 21 [facility] Calcium [Mass/volume] in Serum or Plasma 7.7 mg/dL 8.6-10.0 [facility] Glomerular filtration rate/1.73 sq M pre dicted among non-blacks [Volume Rate/Area] in Serum or Plasma by Creatinine-based formula (MDRD) >6 0 [facility] Glomerular filtration rate/1.73 sq M pre dicted among blacks [Volume Rate/Area] in Serum or Plasma by Creatinine-based formula (MDRD) >60 [facility] ID Date Data Source [id number] 09/27/2020 03:40:17 AM [facility] Name Value Range Interpretation Code Description Data Maura rce(s) Supporting Document(s) Phosphate [Mass/volume] in Serum or Plasma 3.1 mg/dL 2.5-4.5 [facility] ID Date Data Source [id number] 09/26/2020 06:09:23 PM [facility] Name Value Range Interpretation Code Description Data Maura rce(s) Supporting Document(s) Leukocytes [#/volume] in Blood by Automated count 13.1 10*3/uL 4-10 H [facility] Erythrocytes [#/volume] in Blood by Automated count 2.85 10*6/uL 4.1- 5.3 L [facility] Hemoglobin [Mass/volume] in Blood 8.2 g/dL 11.5-15.5 [facility] Hematocrit [Volume Fraction] of Blood by Automated count 25.4 % 3 6-45 L [facility] Erythrocyte mean corpuscular volume [Entitic volume] by Auto mated count 89.0 fL 80-96 [facility] Erythrocyte mean corpuscular hemoglobin [Entitic mass] by Automated count 28.9 pg 27-33 [facility] Erythrocyte mean corpuscular hemoglobin concentration [Mass/volume] by Automated count 32.5 g/dL 32.0-36.0 [facility] Erythrocyte distribution width [Ratio] by Automated count 14.9 % 11.5-14.5 H [facility] Platelets [#/volume] in Blood by Automated count 685 10*3/uL 150-400 [facility] ID Date Data Source [id number] 09/26/2020 05:08:13 AM [facility] Name Value Range Interpretation Code Description Data Maura rce(s) Supporting Document(s) Leukocytes [#/volume] in Blood by Automated count 17.6 10*3/uL 4-10 H [facility] Erythrocytes [#/volume] in Blood by Automated count 2.95 10*6/uL 4.1- 5.3 [facility] Hemoglobin [Mass/volume] in Blood 8.4 g/dL 11.5-15.5 [facility] Hematocrit [Volume Fraction] of Blood by Automated count 26.3 % 3 6-45 [facility] Erythrocyte mean corpuscular volume [Entitic volume] by Auto mated count 89.0 fL -96 [facility] Erythrocyte mean corpuscular hemoglobin [Entitic mass] by Automated count 28.6 pg 27-33 [facility] Erythrocyte mean corpuscular hemoglobin concentration [Mass/volume] by Automated count 32.1 g/dL 32.0-36.0 [facility] Erythrocyte distribution width [Ratio] by Automated count 15.2 % 11.5-14.5 [facility] Platelets [#/volume] in Blood by Automated count 643 10*3/uL 150-400 [facility] ID Date Data Source [id number] 09/26/2020 05:28:49 AM [facility] Name Value Range Interpretation Code Description Data Maura rce(s) Supporting Document(s) Bicarbonate [Moles/volume] in Serum 27 mmol/L - [facility] Chloride [Moles/volume] in Serum or Plasma 100 mmol/L 98-107 [facility] Creatinine [Mass/volume] in Serum or Plasma 0.65 mg/dL 0.50-0.90 [facility] Glucose [Mass/volume] in Serum or Plasma 106 mg/dL 70-140 [facility] Potassium [Moles/volume] in Serum or Plasma 3.9 mmol/L 3.4-5.1 [facility] Sodium [Moles/volume] in Serum or Plasma 134 mmol/L 136-145 L [facility] Urea nitrogen [Mass/volume] in Serum or Plasma 14 mg/dL 6-20 [facility] Anion gap 3 in Serum or Plasma 7 mmol/L 8-15 L [facility] Osmolality of Serum or Plasma by calculation 279 mosm/kg 275-300 [facility] Creatinine/Urea nitrogen [Mass Ratio] in Serum or Plasma 22 [facility] Calcium [Mass/volume] in Serum or Plasma 7.9 mg/dL 8.6-10.0 L [facility] Glomerular filtration rate/1.73 sq M pre dicted among non-blacks [Volume Rate/Area] in Serum or Plasma by Creatinine-based formula (MDRD) >6 0 [facility] Glomerular filtration rate/1.73 sq M pre dicted among blacks [Volume Rate/Area] in Serum or Plasma by Creatinine-based formula (MDRD) >60 [facility] ID Date Data Source [id number] 09/26/2020 05:28:49 AM [facility] Name Value Range Interpretation Code Description Data Maura rce(s) Supporting Document(s) Magnesium [Mass/volume] in Serum or Plasma 1.7 mg/dL 1.6-2.6 [facility] ID Date Data Source [id number] 09/26/2020 05:28:49 AM [facility] Name Value Range Interpretation Code Description Data Maura rce(s) Supporting Document(s) Phosphate [Mass/volume] in Serum or Plasma 3.2 mg/dL 2.5-4.5 [facility] ID Date Data Source [id number] 09/25/2020 05:34:09 PM [facility] Value Range Interpretation Code Description Data Maura rce(s) Supporting Document(s) Leukocytes [#/volume] in Blood by Automated count 21.8 10*3/uL 4-10 H [facility] Erythrocytes [#/volume] in Blood by Automated count 3.21 10*6/uL 4.1- 5.3 L [facility] Hemoglobin [Mass/volume] in Blood 9.3 g/dL 11.5-15.5 [facility] Hematocrit [Volume Fraction] of Blood by Automated count 28.2 % 3 6-45 L [facility] Erythrocyte mean corpuscular volume [Entitic volume] by Auto mated count 87.9 fL 80-96 [facility] Erythrocyte mean corpuscular hemoglobin [Entitic mass] by Automated count 29.0 pg 27-33 [facility] Erythrocyte mean corpuscular hemoglobin concentration [Mass/volume] by Automated count 33.0 g/dL 32.0-36.0 [facility]th[facility] distribution width [Ratio] by Automated count 14.9 % 11.5-14.5 [facility] Platelets [#/volume] in Blood by Automated count 701 10*3/uL 150-400 [facility] ID Date Data Source [id number] 09/25/2020 04:59:23 PM [facility] Name Value Range Interpretation Code Description Data Maura rce(s) Supporting Document(s) History and Physical [facility] UHJMOp4lFnTTGyHq89/DROjfNSEhb2KgEImwFSl3HSkoNEFaA9JtILV0zO8hSKI9OGeTVoRcXqJoMjAt lbm [file] pxvz//mnZYXBv/6rRm0ta8HnNX+nXbJ/kerrZtSDg2A8nvd5YNkCDMiz0L5AIAgKMLd2pdsT6Jui/Isaías [file] /2S9iu276v1pVb/mz2M29eq9w68ErjaXA/C0DGfinS1LNi6CF9w22EyEx2bLvvfRt2i6+1+vp production/XVdPX8 [file] k35TtWW+f/019r0YBa4knhO00r+TQuXmSTrFouPv+zzF9f/Pb+YO+zbDCHbLB/ADDICTIONS COUNSELOR/veSDIWcnfJ3WlWG [file] ICAgICAgICAgICAgICAgICAgICAgICAgICAgICAgICAgICAgICAgICAgICAgICAgICAgICAgICAgICAg ICAgDQogICAgICAgICAgICAgICAgICAgICAgICAgIC AgICAgICAgICAgICAgICAgICAgICAgICAgICAgICAgICAgICAgICAgICAgICAgICAgICAgICAgICAgIC AgICAgICAgICAgICAgDQogICAgICAgICAgICAgICAgICAgICAgICAgICAgICAgICAgICAgICAgICAgIC AgICAgICAgICAgICAgICAgICAgICAgICAgICAgICAg ICAgICAgICAgICAgICAgICAgICAgICAgDQogICAgICAgICAgICAgICAgICAgICAgICAgICAgICAgICAg ICAgICAgICAgICAgICAgICAgICAgICAgICAgICAgICAgICAgICAgICAgICAgICAgICAgICAgICAgICAg ICAgICAgDQogICAgICAgICAgICAgICAgICAgICAgIC AgICAgICAgICAgICAgICAgICAgICAgICAgICAgICAgICAgICAgICAgICAgICAgICAgICAgICAgICAgIC AgICAgICAgICAgICAgICAgDQogICAgICAgICAgICAgICAgICAgICAgICAgICAgICAgICAgICAgICAgIC AgICAgICAgICAgICAgICAgICAgICAgICAgICAgICAg ICAgICAgICAgICAgICAgICAgICAgICAgICAgDQogICAgICAgICAgICAgICAgICAgICAgICAgICAgICAg ICAgICAgICAgICAgICAgICAgICAgICAgICAgICAgICAgICAgICAgICAgICAgICAgICAgICAgICAgICAg ICAgICAgICAgDQogICAgICAgICAgICAgICAgICAgIC AgICAgICAgICAgICAgICAgICAgICAgICAgICAgICAgICAgICAgICAgICAgICAgICAgICAgICAgICAgIC AgICAgICAgICAgICAgICAgICAgDQogICAgICAgICAgICAgICAgICAgICAgICAgICAgICAgICAgICAgIC AgICAgICAgICAgICAgICAgICAgICAgICAgICAgICAg ICAgICAgICAgICAgICAgICAgICAgICAgICAgICAgDQogICAgICAgICAgICAgICAgICAgICAgICAgICAg ICAgICAgICAgICAgICAgICAgICAgICAgICAgICAgICAgICAgICAgICAgICAgICAgICAgICAgICAgICAg YHDcSDIzUCWmPCAeFAn2E5jlQNPpHNEsNN0kMEk5Bd 8+KMpVCtFmLXA2rjRmtB3YZB0an2LlHCulUCUtx4GwTNc0LX7YGEQpSNifDJ9RYThrej3RBVXjNOBxuK ZHv8oyWhIoIZC3AQSyOfbcHU0OZHSeV5ckvdBzSWQyWHPEVNfgPAWQMLtwITTUOWToEHCzSrSpIpYsHZ ReLWXsYHWSRUS9RKPuDkLdBTZeJAOhUdMkGNVRNLAe USHnIqCzBPFjOOCzMkofONDFXZQ6QLYtIiQwLTDjQYPoKS3RSEYtN677riYzIAYASc0+DQplbmRvYmoN YmR6HKRpa5HrDEd4VG0UGCJbUgtnm0GmLXZlZWMPGZujJD3JMIH2MTH1NUUzRp6EAMWtV539sbOdUL4U Jf5NImFhVH8bqt2UIVOkQZJiRlxOXwa2IMkcLG1ByP SzMPlHZkLkHmcwNTNbiJTzHXJlPLWoeD2ohibnDK0mDILgRv0hUA4uCZEqCXDaFbSoNWQPUU1CCMMwBQ SacKQnBEPxAAAVDC4NGUavCNV7WQXceaVnyTMmQWipYV6MSTSbywNeMAKtCUZAQPd+So8QIE0di6YdZE n6ZsUbRX1lwo4CVTdQPlJuP8W2nEVlC5S8VFqoYv5B YAVzDCGnQGAlCCBPBAkfAJ9NFG6vguZ1NF4OjPRtPGLlFMKjvHTuGMd8K27ffQSmZWxmBQ2FPWC+Nadya+ Vs7JWCGjDYUcMXNwEkMhKSSPNcHqG4FfK8QZc9UxW2ImWO22qDydxvMaUMbkEX7CEJ2aAQAcAPPEKH7X iSMpjG7fgpG4TCNvSNLLGyGrZ13zaVCoOJJwECGzRO IpKj0TSDVdW9TxpyKiwYfxhnKwSRPuFINUYI6AQAuflxGvnQZmuNnuBN01uYgoNC9PAm5CGmUkEJ0rrw 1AuZIhFe3WCEN6Iv9KGEUxLMYfGTKfWVJ6TDHbTlZzSSbfCJXwTQXkITU0YOPwGHFgWQ0OPyPvZWHjUv E2QCDvWQRsWQOzjg7QDDStLIG2QGY2IJOuCEYiUCQn ZNfdXOCzFZVsMYJ7WLJjDSNhCZ3HWnMrTUSpDHCxTHSnZHIzABNzsk6NLNNfDMMtYNQrVEPqFVTqZOLq UGijWODsZYA5NNKjJHBkHJIoVE4QSfMlCLLpEDm5TNMvGTAiVXXjxg4GSOEeIRSmJQbkRWDeRBOxSPAg QVulVCSpXPPiQIR0TOTgIPAzZN2ASnGwYYHhAMZ1PW TuDAIiCFAruw9EHKShAJMjWxn8INVoHLWpQTKpTCnxFFWqUZF4IKxjRHVaOOMqJU0NXpZwAKRqDKCbQy MeYDRsPUCyyf5VHBUrIKUvHUH4CoDpGYCzONBjFGuqFLCxVDI4ZQrfJKBzGUTyIB0KWzJkRYRdEaP5OX uwHMUuKBRqhp4TOHCjKUMyKTu0EGBjLIQaKIJdOLms CCXmWUN4PWPbXXXxRFApOY8VFvYrLIAaJdStZWKnXQTdEZXaiz5HYPTjLEBiHGApWCZuUSPbBSDbXEgi FGNeRAU7VyDqBURmAGXzPX0MQtYtNDWuFyA0SAIrZGFrXGNgdr7VWQCdRFSqLcg1CYFrQMMgAKAoAErk UZCoNRE2MRwpQWWzWSJuFN9YHtJxUZDnBmxxOVdiMZ EePLDqkc5ARDFqQNY2Bft5GRBoKSAkGDPeIBniDVCtQAFrOEx9NPNdVVQfCI1NXsQgXINtUKGbMjRsLO YhCSOeup4NNZMnXSW0TCR5VvUsRSPeFCAvDXmrRUEaMAC3EGVgKIWfTTYyBO2NQvFzEBHcYPg7WRyvKG FoZOPzoh8SZXIgHHM3UCA5CjAcMDXeASYiTDyfZTUq HTL7WyZ7DEQnQOMxIE8YFoTsQRVoNTb7HMasTRWmEDBpkb2HNVCxJDV1GPyjHcKvVGNjCIElSAnuJVZe FNYsYCD6CFNaAZQkES6YCwJcEHGuVZDvGLLiDZTjIJPura8EOFWuPFV1UPU2MsIyIYGqDQIuOBcfOFQa PBMhHLZeYKJdZUYqOQ8KZjCfQGQuDUO2AiYhXGTeBI Iakv1FIHGuOOL9SlPiARHkRXPqBZNgQPmsRUQbQJWaDmQ2FOFvMSXhDQ7ZGyEqKUWyTuJ2KXacXLSiTX Djgh4VMRVvQGF7Qkm1JeGoSXFxAPQxMCkgBGLxEIKxFLUhHVFmXLTzWE3HYoKbTKVtLjD9OxwiXEEqAL Nflr2IPVUkOOE1AKS5MHWeOAFnNCSjGUcoVNUhWFT2 HyTmUDVlBHBfNC9BYxOwNSTgDyRjMHWaDDMdMPQeaz5VVZPfFWP6KqJ2LCUvWVYrTPTaALnkEAQeUHZ2 KUGpKOYcONGdXJ4XFvQdWRXjItehXEOsDLBkGAMtwp3YCBKsLNX2GMEaGZKjYLOgVKFoGFfiUUAlOGC6 UhShYFPpXNDbJQ5FTkLbSKOxLbf8SOOqPQWaBUJnrd 4PeRUgiTdtws0JIFzCZf8NqQgmUVV7SJijBb4jzAN7RpAtMQHSQg7WijFuUCDfCRXDJQmuDCVpFTXrDC Z1ZFD7EwI8KQErQQYpXwGmFHM6HIP3YumiHHR7HtM6MaB4KbQ0OGZoWZnxCYHeHzG1ZCOwWgKgXstaXN JkMzk+ME6aBWk+Gh1Zm1DqkjY6paLzVWd9PUz0PX2VDIILC9VFIn== ID Date Data Source [id number] 09/25/2020 01:34:51 PM [facility] Name Value Range Interpretation Code Description Data Maura rce(s) Supporting Document(s) Leukocytes [#/volume] in Blood by Automated count 22.1 10*3/uL 4-10 H [facility] Erythrocytes [#/volume] in Blood by Automated count 3.35 10*6/uL 4.1- 5.3 L [facility] Hemoglobin [Mass/volume] in Blood 9.9 g/dL 11.5-15.5 L [facility] Hematocrit [Volume Fraction] of Blood by Automated count 29.5 % 3 6-45 L [facility] Erythrocyte mean corpuscular volume [Entitic volume] by Auto mated count 87.8 fL 80-96 [facility] Erythrocyte mean corpuscular hemoglobin [Entitic mass] by Automated count 29.6 pg 27-33 [facility] Erythrocyte mean corpuscular hemoglobin concentration [Mass/volume] by Automated count 33.7 g/dL 32.0-36.0 [facility] Erythrocyte distribution width [Ratio] by Automated count 14.5 % 11.5-14.5 [facility] Platelets [#/volume] in Blood by Automated count 739 10*3/uL 150-400 [facility] Differential cell count method - Blood [facility] Neutrophils/100 leukocytes in Blood by Automated count 85 % [facility] Lymphocytes/100 leukocytes in Blood by Automated count 6 % [facility] Monocytes/100 leukocytes in Blood by Automated count 9 % [facility] Eosinophils/100 leukocytes in Blood by Automated count 0 % [facility] Basophils/100 leukocytes in Blood by Automated count 0 % [facility] Neutrophils [#/volume] in Blood by Automated count 18.61 10*3/uL 1.8- 7.0 [facility] Lymphocytes [#/volume] in Blood by Automated count 1.36 10*3/uL 1.2-4 .0 [facility] Monocytes [#/volume] in Blood by Automated count 2.04 10*3/uL 0-0.8 [facility] Eosinophils [#/volume] in Blood by Automated count 0.02 10*3/uL 0-0.5 [facility] Basophils [#/volume] in Blood by Automated count 0.05 10*3/uL 0-0.2 [facility] Nucleated erythrocytes/100 leukocytes [Ratio] in Blood by Automated count 0 /100{WBCs} 0-0 [facility] ID Date Data Source [id number] 09/25/2020 11:24:40 AM [facility] Name Value Range Interpretation Code Description Data Maura rce(s) Supporting Document(s) [facility] LGPLFu4xAiNMOoVr03/HPEeqDVZei1AiYPlxVOs8QRcbVIIlK6PyUYH7dP7pANU0KBqMNfKtNrXbFoVu lbm [file] ICAgICAgICAgICAgICAgICAgICAgICAgICAgICAgICAgICAgICAgICAgICAgICAgICAgICAgICAgICAg ICAgICAgICAgICAgICAgICAgICAgICAgICAgICAgICAgICAgICAgDQogICAgICAgICAgICAgICAgICAg ICAgICAgICAgICAgICAgICAgICAgICAgICAgICAgIC AgICAgICAgICAgICAgICAgICAgICAgICAgICAgICAgICAgICAgICAgICAgICAgICAgDQogICAgICAgIC AgICAgICAgICAgICAgICAgICAgICAgICAgICAgICAgICAgICAgICAgICAgICAgICAgICAgICAgICAgIC AgICAgICAgICAgICAgICAgICAgICAgICAgICAgICAg DQogICAgICAgICAgICAgICAgICAgICAgICAgICAgICAgICAgICAgICAgICAgICAgICAgICAgICAgICAg ICAgICAgICAgICAgICAgICAgICAgICAgICAgICAgICAgICAgICAgICAgDQogICAgICAgICAgICAgICAg ICAgICAgICAgICAgICAgICAgICAgICAgICAgICAgIC AgICAgICAgICAgICAgICAgICAgICAgICAgICAgICAgICAgICAgICAgICAgICAgICAgICAgDQogICAgIC AgICAgICAgICAgICAgICAgICAgICAgICAgICAgICAgICAgICAgICAgICAgICAgICAgICAgICAgICAgIC AgICAgICAgICAgICAgICAgICAgICAgICAgICAgICAg ICAgDQogICAgICAgICAgICAgICAgICAgICAgICAgICAgICAgICAgICAgICAgICAgICAgICAgICAgICAg ICAgICAgICAgICAgICAgICAgICAgICAgICAgICAgICAgICAgICAgICAgICAgDQogICAgICAgICAgICAg ICAgICAgICAgICAgICAgICAgICAgICAgICAgICAgIC AgICAgICAgICAgICAgICAgICAgICAgICAgICAgICAgICAgICAgICAgICAgICAgICAgICAgICAgDQogIC AgICAgICAgICAgICAgICAgICAgICAgICAgICAgICAgICAgICAgICAgICAgICAgICAgICAgICAgICAgIC AgICAgICAgICAgICAgICAgICAgICAgICAgICAgICAg ICAgICAgDQogICAgICAgICAgICAgICAgICAgICAgICAgICAgICAgICAgICAgICAgICAgICAgICAgICAg EVVdOKIpXLJkDLNaDVXlAESeKEDhIJVrZYLgZLKtSEMfAEEvZKLtXGAjJRYyUIRjNRd2Q1mfIKGjFWQf GE8kRPm3Ia0+MPhUJyVmRMC9zcJzoW0MLM8ia7TgRA lxAIRmh9OqBUt3AE8KRCHnVMstON7RCJbgbh2FTUEjLFUasOEFj9uxUkSrICL9FFJfAfabUO3JLDSlA2 vaodPzVAAvDZNDGXbwKXCFONxrGBPFCISnTHPhRaBqScWlYPDzBROgQTAQVJ1ZNuReC6FcyL74SWHNEp 4+FKxbwzSkImlZUqS2DFZtf8IpQRu9HL7KNQNwPlff g8LiOgQnHTZVYKytXO4OPHG5FQH7CXCjQt3PCCTxV624miXlZG0VAd2PRvYoZW5lnm8OSgGhPEJnLgnQ Pqr3HAsaMK8GbDNtGDbKx93ovKx4etYytNDJhyT5yEFjTTqdiwBoEMCGJPM6TIPpMAHpEmAwUXTyPZvz YuUWPTnVCnUwT4Sce2GhLtH2CJZoBdKeQAcjJSWwWW hqOM57nWsuXG2CADXzDHAyPY82XMH7SOFeId3YIp2ZPcSfZS8awf6ROuziDRSlZtfXCmg6NMiuKZ0NvA JqI1LzyVPdn2yHIwWcD8BERWViBXBuOi2HLKOhJcFxYHFaIAzpIR5sXVTjLIQBpQoubuI0LY1JYA7bul GuKD8QAqNqTf1sEp8GOqXvY8ZcT3YgSQJwDGQGAVln HI4NCMokTP2sQM8Ym6PMnYThcW3txm4RCLMfEBQtIbudrn2CYbkoV9H2xNsgYSXzAnJhFXQRCYezTY8Y AXYwSPI3MPMlZGYwPYFGAsLkI90qHK2RM6Xhq50pHoR0KCZwCiSiPVgmFO66zKzkibJatRZwbHpaBX2F Cj4+DQplbmRvYmoNCnhyZWYNCjAgMzgNCjAwMDAwMD UsCFPsYpW5SpMmLh2XEAJiKDSfEFUqVsUuLYGmAGYdTEdbQRNuIQQ6BBZ7BDCiWYEuEH9LWpLmIFQdAa U6KQAaGIBoPMZqgp1MEARhNJXwXFB8FaTmFWDaTYXnOBsxPOXsXATcTaW4VAHmGGCzPL3LPtFvXRQzVM F7YYVwPWNlZCZkje8HEPJhNDBaNuN9RFZsRCIkKEKh LLbcTRWfJHM2NOa7SWXbAHTyER2HArRmXYSiAIxhUIahGPUoBIDfbt6WWVZjWEIdPSZ6KDVrVHOaJMLx BVcfEWEsYAYyLPH0XPFaUFByMW2PDtAxVPXcEQCkVsXeVKYmYLBcqm8QONIrVXFnVPVjEoZpPWHkNRNd CUitLOVtILM1JiO9LRJnFIIwAO7PRhXlBBUlNRamGL RoEUPeLGDnsh1QQCTsIDBsUaPjZwQdQXRsUCMwBLisYZYvUYO7YaV3VQSpCFLtZC8MXwYiATDlUXg7Yi YvPOXvIETlhz6VYOEfMIPyPGh9RdShMEQoNNOcQAuvTXJjZQB7GeU8TDUhOAUbSA3EHuXjVVVeVRt6GD soUOJsKQZzie9BHFShAWGgMHZ0FNPdZERoQRBcYXky COOlZVJeEWA9WCWfHVYxLN2FDkHhKGXgBtDgNWNsFQEwPBYhaq4EUYRwMJRsMUVcYCAqMNWeZFAjSWan STGmFDLiNFGtIZRaWTPrBB3PIwBtWPKvSeOsBuzuFEJhROMsxd9IXTLaKDPdUiY3MlRnIVOuVQLhCWmf VXHoZCRwSVx1XMGtJUVkAT6RIsGhCSPfIeU0RdCbEI DfEFUsxj4PHZOoIOSfKPK6ZqFsYNRrFEXcSGelBZKiOZH9HNQ7YLJbMSNtWH7YThFqPGOkQsDqEPYnIO IvZRDtmv5CYGSnYDPbJXL2JETdWAFwKIZbJFqvFOKwJHH8WXR7CIScHJNvTI0LShJmDLZdPbtwZOrpZS TvLSXbsm9ZYYEeTBFvKjU1TSHhOMQjVJUgBKo4jvAu kBAzZLw5CB4II0GngiYvBsvVAj6Qs931FHO9GAKeLp8XC7waXt6yHGZqOSCFCr8REZv7LNQhTGQkEMGo EPIbYII9IgFjXKTePdE6WAbqYjOnYLS+EOa2LbT7X8PzXsBtRISkNFjqLEKkO5NiVdJxCwOdVYC1Me7j XSANCj4+RCoyjYTzrGemQQCABiK8HVMoVSjcYAGLDj5B ID Date Data Source [id number] 09/25/2020 09:56:12 AM [facility] IR VISCERAL ARTERIOGRAMFINAL RESULTInter preted by:MILAGRO Higuera: Pelvic and left lower extremity arteriogram with embolizationCLINICAL INDICATIONS: Spontaneous hemorrhage in the left rectus sheath on patient was being treated for a DVT with Lovenox.Contrast Type and Dose: Omnipaque 350, 100 mLFluoroscopy time 10.9 minutes, Fluoroscopy Dose 559 mGy. Consent: Following discussion of the risks, benefits and alternatives of the procedure, written informed consent was obtained. Moderate Sedation: NoneCOMPARISON: CT abdomen and pelvis from 09/24/2020, 09/22/199906/08 and 09/15/2020TIME OUT: Prior to the procedure a time out was performed in the presence of the patient and all personnel involved in this case. The patient identity, procedure type, procedure side/site, and allergies were verified. ........................................Procedures performed:1. Right common femoral artery access with sheath angiogram.2. Arteriogram of the left external iliac artery.3. Superselective DSA arteriogram of the left inferior epigastric artery.4. Gelfoam embolization of the left inferior epigastric artery and embolization of the left inferior epigastric artery with detachable and push able coils5. Postembolization arteriogram of the left inferior epigastric artery.6. Postembolization arteriogram of the left external iliac artery.7. Postembolization arteriogram of the left common iliac artery.8. Arteriotomy closure utilizing a Mynx closure device.TECHNIQUE: Position: The patient was transferred to the IR laboratory and was positioned supine on the procedural table. The right groin was prepped and draped using maximum sterile barrier technique.Procedure: Utilizing the modified Seldinger technique the right common femoral artery was accessed. A 5 Sammarinese by 23 cm vascular access sheath was introduced into the right common iliac artery. Then, over the wire a 5 Sammarinese C2 Cobra Glidecath was introduced into the left external iliac artery over a regular Glidewire. An arteriogram of the left external iliac artery was performed. Then, coaxially a microcatheter and wire (2.4 F Progreat and fathom wire) used to select the left inferior epigastric artery. An arteriogram of the left inferior epigastric artery was performed. Embolization of the left inferior epigastric artery was performed with Gelfoam slurry and numerous detachable and push able coils. Postembolization arteriogram of the left inferior epigastric artery was performed. Then, the microcatheter was removed and postembolization arteriogram of the left external iliac and left common iliac arteries were performed. The directional catheter was removed. A decision was made to not investigate the visceral arteries given the left rectus sheath hemorrhage. The 5 Sammarinese by 23 cm sheath was exchanged for a 5 Sammarinese by 11 cm sheath over the wire. A right common femoral artery arteriogram was performed via the sheath side port. At the end of the procedure hemostasis was achieved utilizing Mynx closure device and manual pressure. Dermabond adhesive and a clean sterile dressing were placed.FINDINGS: No definite extravasation was seen while interrogating the left inferior epigastric artery and the left external iliac an d common iliac arteries. Empiric embolization of the left inferior epigastric artery was performed.IMPRESSION: Technically successful left pelvic arteriogram with embolization of the left inferior epigastric artery with Gelfoam and coils.This document has been electronically signed by Tom Johnson DO on 09/25/2020 9:54 AM Name Value Range Interpretation Code Description Data Maura e(s) Supporting Document(s) ID Date Data Source [id number] 09/25/2020 09:11:32 AM [facility] Name Value Range Interpretation Code Description Data Maura rce(s) Supporting Document(s) [facility] UUAEXp9gWpNPCtNg53/VCVvnPTGmw4HbXSbcJNz8EMikCNUwS0CnPKZ2uD9tMJA9ZPyGUgDrBeTwXbDo [facility] [file] [id number]= ID Date Data Source [id number] 09/25/2020 08:55:45 AM [facility] Name Value Range Interpretation Code Description Data Maura rce(s) Supporting Document(s) [facility] VDFIDm0gKiHNLbNoh2PgRiHrYRQsMA0ufvv7R8K2iORkY7QjdUBdc9rhA4CwX3SoNKBuKMKONN2OpRGz jb2 [file] Jnn[id number]= ID Date Data Source [id number] 09/25/2020 07:38:22 AM [facility] Name Value Range Interpretation Code Description Data Maura rce(s) Supporting Document(s) Bicarbonate [Moles/volume] in Serum 24 mmol/L 22-29 [facility] Chloride [Moles/volume] in Serum or Plasma 102 mmol/L 98-107 [facility] Creatinine [Mass/volume] in Serum or Plasma 0.68 mg/dL 0.50-0.90 [facility] Glucose [Mass/volume] in Serum or Plasma 134 mg/dL 70-140 [facility] Potassium [Moles/volume] in Serum or Plasma 4.8 mmol/L 3.4-5.1 [facility] Sodium [Moles/volume] in Serum or Plasma 137 mmol/L 136-145 [facility] Urea nitrogen [Mass/volume] in Serum or Plasma 12 mg/dL 6-20 [facility] Anion gap 3 in Serum or Plasma 11 mmol/L 8-15 [facility] Osmolality of Serum or Plasma by calculation 286 mosm/kg 275-300 [facility] Creatinine/Urea nitrogen [Mass Ratio] in Serum or Plasma 17 [facility] Calcium [Mass/volume] in Serum or Plasma 8.1 mg/dL 8.6-10.0 L [facility] Glomerular filtration rate/1.73 sq M pre dicted among non-blacks [Volume Rate/Area] in Serum or Plasma by Creatinine-based formula (MDRD) >6 0 [facility] Glomerular filtration rate/1.73 sq M pre dicted among blacks [Volume Rate/Area] in Serum or Plasma by Creatinine-based formula (MDRD) >60 [facility] ID Date Data Source [id number] 09/25/2020 07:58:10 AM [facility] Name Value Range Interpretation Code Description Data Maura rce(s) Supporting Document(s) Leukocytes [#/volume] in Blood by Automated count 23.1 10*3/uL 4-10 H [facility] Erythrocytes [#/volume] in Blood by Automated count 3.47 10*6/uL 4.1- 5.3 L [facility] Hemoglobin [Mass/volume] in Blood 9.9 g/dL 11.5-15.5 [facility] Hematocrit [Volume Fraction] of Blood by Automated count 30.8 % 3 6-45 L [facility] Erythrocyte mean corpuscular volume [Entitic volume] by Auto mated count 88.8 fL 80-96 [facility] Erythrocyte mean corpuscular hemoglobin [Entitic mass] by Automated count 28.4 pg 27-33 [facility] Erythrocyte mean corpuscular hemoglobin concentration [Mass/volume] by [facility] 32.0 g[facility] width [Ratio] by Automated count 14.7 % 11.5-14.5 H [facility] Platelets [#/volume] in Blood by Automated count 679 10*3/uL 150-400 H [facility] Differential cell count method - Blood [facility] Neutrophils/100 leukocytes in Blood by Automated count 92 % [facility] Lymphocytes/100 leukocytes in Blood by Automated count 3 % [facility] Monocytes/100 leukocytes in Blood by Automated count 3 % [facility] Neutrophils [#/volume] in Blood by Automated count 21.37 10*3/uL 1.8- 7.0 H [facility] Lymphocytes [#/volume] in Blood by Automated count 0.65 10*3/uL 1.2-4 .0 L [facility] Monocytes [#/volume] in Blood by Automated count 0.65 10*3/uL 0-0.8 [facility] Myelocytes/100 leukocytes in Blood by Manual count 2 % [facility] Myelocytes [#/volume] in Blood by Manual count 0.44 10*3/uL 0-0 H [facility] Elliptocytes [Presence] in Blood by Light microscopy [facility] Poikilocytosis [Presence] in Blood by Light microscopy [facility] ID Date Data Source [id number] 09/27/2020 05:48:00 AM [facility] Name Value Range Interpretation Code Description Data Maura rce(s) Supporting Document(s) ABO and Rh group [Type] in Blood [facility] Blood group antibody screen [Presence] in Serum or Plasma [facility] Blood bank comment [facility] ID Date Data Source [id number] 09/25/2020 01:37:27 AM [facility] Name Value Range Interpretation Code Description Data Maura rce(s) Supporting Document(s) Leukocytes [#/volume] in Blood by Automated count 23.4 10*3/uL 4-10 H [facility] Erythrocytes [#/volume] in Blood by Automated count 3.32 10*6/uL 4.1- 5.3 L [facility] Hemoglobin [Mass/volume] in Blood 9.6 g/dL 11.5-15.5 [facility] Hematocrit [Volume Fraction] of Blood by Automated count 29.2 % 3 6-45 L [facility] Erythrocyte mean corpuscular volume [Entitic volume] by Auto mated count 88.0 fL 80-96 [facility] Erythrocyte mean corpuscular hemoglobin [Entitic mass] by Automated count 29.0 pg 27-33 [facility] Erythrocyte mean corpuscular hemoglobin concentration [Mass/volume] by Automated count 33.0 g/dL 32.0-36.[facility] width [Ratio] by Automated count 14.8 % 11.5-14.5 H [facility] Platelets [#/volume] in Blood by Automated count 705 10*3/uL 150-400 H [facility] Differential cell count method - Blood [facility] Neutrophils/100 leukocytes in Blood by Automated count 88 % [facility] Lymphocytes/100 leukocytes in Blood by Automated count 5 % [facility] Monocytes/100 leukocytes in Blood by Automated count 7 % [facility] Eosinophils/100 leukocytes in Blood by Automated count 0 % [facility] Basophils/100 leukocytes in Blood by Automated count 0 % [facility] Neutrophils [#/volume] in Blood by Automated count 20.72 10*3/uL 1.8- 7.0 H [facility] Lymphocytes [#/volume] in Blood by Automated count 1.12 10*3/uL 1.2-4 .0 L [facility] Monocytes [#/volume] in Blood by Automated count 1.56 10*3/uL 0-0.8 H [facility] Eosinophils [#/volume] in Blood by Automated count 0.02 10*3/uL 0-0.5 [facility] Basophils [#/volume] in Blood by Automated count 0.03 10*3/uL 0-0.2 [facility] Nucleated erythrocytes/100 leukocytes [Ratio] in Blood by Automated count 0 /100{WBCs} 0-0 [facility] ID Date Data Source [id number] 09/25/2020 01:50:46 AM [facility] Value Range Interpretation Code Description Data Maura rce(s) Supporting Document(s) Prothrombin time (PT) 15.5 s 12.5-14.9 H [facility] INR in Platelet poor plasma by Coagulation assay 1.21 [facility] Routine intensity oral anticoagulation I NR is typically 2.0-3.0. Target INR must be clinically individualized. ID Date Data Source [id number] 09/25/2020 01:50:46 AM [facility] Value Range Interpretation Code Description Data Maura rce(s) Supporting Document(s) aPTT in Platelet poor plasma by Coagulation assay 32.8 s 24.0-33. 0 [facility] ID Date Data Source [id number] 09/25/2020 02:27:49 AM [facility] Name Value Range Interpretation Code Description Data Maura rce(s) Supporting Document(s) Albumin [Mass/volume] in Serum or Plasma by Bromocresol green (BCG) dye binding method 2.6 g/dL 3.5-5.2 [facility] Bilirubin.total [Mass/volume] in Serum or Plasma 0.4 mg/dL <1.2 [facility] Calcium [Mass/volume] in Serum or Plasma 7.9 mg/dL 8.6-10.0 L [facility] Chloride [Moles/volume] in Serum or Plasma 98 mmol/L 98-107 [facility] Creatinine [Mass/volume] in Serum or Plasma 0.70 mg/dL 0.50-0.90 [facility] Glucose [Mass/volume] in Serum or Plasma 138 mg/dL 70-140 [facility] Alkaline phosphatase [Enzymatic activity/volume] in Serum or Plasma 87 U/L 35-104 [facility] Potassium [Moles/volume] in Serum or Plasma 4.8 mmol/L 3.4-5.1 [facility] Hemolyzed Protein [Mass/volume] in Serum or Plasma 6.0 g/dL 6.4-8.3 L [facility] Sodium [Moles/volume] in Serum or Plasma 133 mmol/L 136-145 L [facility] Aspartate aminotransferase [Enzymatic activity/volume] in Serum or Plasma 17 U/L <32 [facility] Urea nitrogen [Mass/volume] in Serum or Plasma 10 mg/dL 6-20 [facility] Osmolality of Serum or Plasma by calculation 277 mosm/kg 275-300 [facility] Creatinine/Urea nitrogen [Mass Ratio] in Serum or Plasma 14 [facility] Bicarbonate [Moles/volume] in Serum 25 mmol/L 22-29 [facility] Alanine aminotransferase [Enzymatic activity/volume] in Seru m or Plasma 5 U/L <33 [facility] Anion gap 3 in Serum or Plasma 10 mmol/L 8-15 [facility] Glomerular filtration rate/1.73 sq M pre dicted among non-blacks [Volume Rate/Area] in Serum or Plasma by Creatinine-based formula (MDRD) >6 0 [facility] Glomerular filtration rate/1.73 sq M pre dicted among blacks [Volume Rate/Area] in Serum or Plasma by Creatinine-based formula (MDRD) >60 [facility] ID Date Data Source [id number] 09/26/2020 08:49:46 AM [facility] Name Value Range Interpretation Code Description Data Maura rce(s) Supporting Document(s) ABO and Rh group [Type] in Blood [facility] Blood group antibody screen [Presence] in Serum or Plasma [facility] Performed at [facility], Eunice May , PACO Alexis TRANSFERRED DT, 1U PC RELEASED 09/26/20 ID Date Data Source [id number] 09/24/2020 09:29:[address] [facility] [address] ABDOMEN PELVIS WITH CONTRAST [id number] REEMA RESULT - FINALInterpreted by:Ian Handley BeginsSigned on TueSep 24, 2020 9:29 PM by Hiwot Velazquez, MDCritical call documented in the original report.THIS DOCUMENT HAS BEEN ELECTRONICALLY SIGNED BY HIWOT Sosa EndsPROCEDURE INFORMATION: Exam: CT Abdomen And Pelvis With Contrast Exam date and time: 09/24/2020 8:57 PM Age: 55 years old Clinical indication: Activated protein c resistance; Diverticulitis of intestine, part unspecified, without perforation or abscess without bleeding; Other reduced mobility; Other specified health status; Colostomy status; Other: Hypotension; Additional info: Hypotension history of diverticulitis TECHNIQUE: Imaging protocol: Computed tomography of the abdomen and pelvis with contrast. Radiation optimization: All CT scans at this facility use at least one of these dose optimization techniques: automated exposure control; mA and/or kV adjustment per patient size (includes targeted exams where dose is matched to clinical indication); or iterative reconstruction. Contrast material: OMNI 300; Contrast volume: 100 ml; Contrast route: INTRAVENOUS (IV); COMPARISON: CT ABDOMEN PELVIS WITH CONTRAST [id number] 09/21/2020 4:47 PM FINDINGS: Tubes, catheters and devices: There is a percutaneous surgical drain entering from the left anterolateral lower abdomen with the tip position anterior to the sacrum on the left. Lungs: There is nonspecific consolidation in the left lung base. Pleural spaces: There is a small left pleural fluid collection present. Heart: The heart is not enlarged. Liver: The liver is normal. Gallbladder and bile ducts: There has been a cholecystectomy. Pancreas: The pancreas is normal. Spleen: The spleen is normal. Adrenal glands: The adrenal glands are normal. Kidneys and ureters: The kidneys are normal. Stomach and bowel: The stomach is normal. There has been a distal colonic resection with colostomy Appendix: A normal appendix is identified. Intraperitoneal space: No evidence of intr aperitoneal free air. Vasculature: The aorta is normal. Lymph nodes: There is a very large fluid collection in the pelvis above the dome of the bladder measuring about 16.4 cm in transverse by 13.2 cm in craniocaudal by 12.6 cm in AP diameter. This abuts the dome of the bladder. There appears to be active bleeding into this collection from the surgical wound. This can be seen on series 3 image 314 through 340. Urinary bladder: The bladder is contrast filled and is unremarkable. Reproductive: The uterus is not visualized, and may be surgically absent. Bones/joints: Marginal osteophytes are noted at multiple levels in the spine. Soft tissues: Multiple surgical skin robert are present. The colostomy is demonstrated to the left of midline above the level of the umbilicus. IMPRESSION: 1. Very large intraperitoneal hematoma with active bleeding from the incision near the level of the umbilicus. 2. Small left pleural effusion. 3. Left basilar atelectasis or pneumonia. THIS REPORT CONTAINS FINDINGS THAT MAY BE CRITICAL TO PATIENT CARE. The findings were verbally communicated via telephone conference with Lyndsay Smith at 9:27 PM [facility] on 09/24/2020. The findings were acknowledged and understood.THIS DOCUMENT HAS BEEN ELECTRONICALLY SIGNED BY HIWOT VELAZQUEZ MDThis document has been electronically signed by Hiwot Velazquez MD on 09/24/2020 9:27 PM Name Value Range Interpretation Code Description [facility] Document(s) ID Date Data Source [id number] 09/24/2020 09:32:37 PM [facility] Name Value Range Interpretation Code Description [facility] Document(s) pH of Venous blood 7.40 7.36-7.41 [facility] Carbon dioxide [Partial pressure] in Venous blood 42 mmHg 40-45 [facility] Oxygen [Partial pressure] in Venous blood 50 mmHg [facility] Base excess in Venous blood by calculation 1 [facility] Carbon dioxide, total [Moles/volume] in Venous blood by calculat ion 27 mmol/L [facility] Oxygen saturation in Venous blood 84 % 60-85 [facility] ID Date Data Source [id number] 09/29/2020 12:57:35 PM EDT [facility] Service Cmnt XXX-Imp : LACMicroorganism XXX Cult : No growth 5 days Name Value Range Interpretation Code Description Data Maura rce(s) Supporting Document(s) ID Date Data Source [id number] 09/24/2020 08:58:07 PM EST [facility] Name Value Range Interpretation Code Description Data Maura rce(s) Supporting Document(s) Leukocytes [#/volume] in Blood by Automated count 18.8 10*3/uL 4-10 H [facility] Erythrocytes [#/volume] in Blood by Automated count 3.26 10*6/uL 4.1- 5.3 L [facility] Hemoglobin [Mass/volume] in Blood 9.1 g/dL 11.5-15.5 [facility] Hematocrit [Volume Fraction] of Blood by Automated count 28.5 % 3 6-45 [facility] Erythrocyte mean corpuscular volume [Entitic volume] by Auto mated count 87.2 fL 80-96 [facility] Erythrocyte mean corpuscular hemoglobin [Entitic mass] by Automated count 27.9 pg 27-33 [facility] Erythrocyte mean corpuscular hemoglobin concentration [Mass/volume] by Automated count 32.0 g/dL 32.0-36.0 [facility] distribution width [Ratio] by Automated count 15.2 % 11.5-14.5 [facility] Platelets [#/volume] in Blood by Automated count 750 10*3/uL 150-400 H [facility] Differential cell count method - Blood [facility] Neutrophils/100 leukocytes in Blood by Automated count 90 % [facility] Lymphocytes/100 leukocytes in Blood by Automated count 5 % [facility] Monocytes/100 leukocytes in Blood by Automated count 5 % [facility] Eosinophils/100 leukocytes in Blood by Automated count 0 % [facility] Basophils/100 leukocytes in Blood by Automated count 0 % [facility] Neutrophils [#/volume] in Blood by Automated count 16.88 10*3/uL 1.8- 7.0 H [facility] Lymphocytes [#/volume] in Blood by Automated count 0.89 10*3/uL 1.2-4 .0 L [facility] Monocytes [#/volume] in Blood by Automated count 0.96 10*3/uL 0-0.8 H [facility] Eosinophils [#/volume] in Blood by Automated count 0.02 10*3/uL 0-0.5 [facility] Basophils [#/volume] in Blood by Automated count 0.03 10*3/uL 0-0.2 [facility] Nucleated erythrocytes/100 leukocytes [Ratio] in Blood by Automated count 0 /100{WBCs} 0-0 [facility] ID Date Data Source [id number] 09/24/2020 09:02:01 PM [facility] Name Value Range Interpretation Code Description Data Maura rce(s) Supporting Document(s) Albumin [Mass/volume] in Serum or Plasma by Bromocresol green (BCG) dye binding method 2.7 g/dL 3.5-5.2 L [facility] Bilirubin.total [Mass/volume] in Serum or Plasma 0.4 mg/dL <1.2 [facility] Calcium [Mass/volume] in Serum or Plasma 8.2 mg/dL 8.6-10.0 L [facility] Chloride [Moles/volume] in Serum or Plasma 94 mmol/L 98-107 [facility] Creatinine [Mass/volume] in Serum or Plasma 0.61 mg/dL 0.50-0.90 [facility] Glucose [Mass/volume] in Serum or Plasma 162 mg/dL 70-140 H [facility] Alkaline phosphatase [Enzymatic activity/volume] in Serum or Plasma 93 U/L 35-104 [facility] Potassium [Moles/volume] in Serum or Plasma 4.5 mmol/L 3.4-5.1 [facility] Protein [Mass/volume] in Serum or Plasma 6.2 g/dL 6.4-8.3 L [facility] Sodium [Moles/volume] in Serum or Plasma 132 mmol/L 136-145 [facility] Aspartate aminotransferase [Enzymatic activity/volume] in Serum or Plasma 12 U/L <32 [facility] Urea nitrogen [Mass/volume] in Serum or Plasma 10 mg/dL 6-20 [facility] Osmolality of Serum or Plasma by calculation 277 mosm/kg 275-300 [facility] Creatinine/Urea nitrogen [Mass Ratio] in Serum or Plasma 17 [facility] Bicarbonate [Moles/volume] in Serum 26 mmol/L 22-29 [facility] Alanine aminotransferase [Enzymatic activity/volume] in Seru m or Plasma 5 U/L <33 [facility] Anion gap 3 in Serum or Plasma 13 mmol/L 8-15 [facility] Glomerular filtration rate/1.73 sq M pre dicted among non-blacks [Volume Rate/Area] in Serum or Plasma by Creatinine-based formula (MDRD) >6 0 [facility] Glomerular filtration rate/1.73 sq M pre dicted among blacks [Volume Rate/Area] in Serum or Plasma by Creatinine-based formula (MDRD) >60 [facility] ID Date Data Source [id number] 09/24/2020 09:04:21 PM [facility] Name Value Range Interpretation Code Description Data Maura rce(s) Supporting Document(s) Prothrombin time (PT) 15.7 s 12.5-14.9 H [facility] INR in Platelet poor plasma by Coagulation assay 1.23 [facility] Routine intensity oral anticoagulation I NR is typically 2.0-3.0. Target INR must be clinically individualized. ID Date Data Source [id number] 09/24/2020 08:58:20 PM [facility] Value Range Interpretation Code Description Data Maura rce(s) Supporting Document(s) Lactate [Moles/volume] in Serum or Plasma 2.1 mmol/l 0.5-2.2 [facility] ID Date Data Source [id number] 09/24/2020 07:54:39 PM [facility] Value Range Interpretation Code Description Data Maura rce(s) Supporting Document(s) Glucose [Mass/volume] in Capillary blood by Glucometer 152 mg/dL 70- 140 H [facility] ID Date Data Source [id number] 09/24/2020 05:25:[address] [facility] [address] ANGIOGRAPHY THORAX [id number] RESULTI nterpreted by:Hiwot Velazquez, MDPROCEDURE INFORMATION: Exam: CT Angiography Chest With Contrast Exam date and time: 09/24/2020 5:06 PM Age: 55 years old Clinical indication: Activated protein c resistance; Diverticulitis of intestine, part unspecified, without perforation or abscess without bleeding; Other reduced mobility; Other specified health status; Colostomy status; Other: Chest pain TECHNIQUE: Imaging protocol: Computed tomographic angiography of the chest with contrast. 3D rendering (Not supervised by radiologist): MIP and/or 3D reconstructed images were created by the technologist. Radiation optimization: All CT scans at this facility use at least one of these dose optimization techniques: automated exposure control; mA and/or kV adjustment per patient size (includes targeted exams where dose is matched to clinical indication); or iterative reconstruction. Contrast material: OMNI 350; Contrast volume: 100 ml; Contrast route: INTRAVENOUS (IV); COMP ARISON: CR XR CHEST FRONTAL ONLY [id number] PORTABLE 09/16/2020 1:06 AM FINDINGS: Pulmonary arteries: There is no evidence of filling defects within the pulmonary arterial circulation to suggest pulmonary embolism. Aorta: The aorta is normal. Lungs: There is nonspecific consolidation in the left lung base. The bronchial tree is normal. Pleural spaces: There is a moderate left pleural fluid collection present. Heart: The heart is not enlarged. There is calcification of the mitral valve annulus. Mediastinal space: The trachea is normal. Lymph nodes: No pathologic lymph node enlargement is demonstrated. Bones/joints: Unremarkable Soft tissues: The extrathoracic soft tissues are normal. IMPRESSION: 1. No evidence of pulmonary embolism. 2. Moderate left pleural effusion. 3. Left basilar atelectasis or pneumonia. THIS DOCUMENT HAS BEEN ELECTRONICALLY SIGNED BY HIWOT VELAZQUEZ MDThis document has been electronically signed by Hiwot Velazquez MD on 09/24/2020 5:25 PM Name Value Range Interpretation Code Description Data Maura rce(s) Supporting Document(s) ID Date Data Source [id number] 09/24/2020 03:36:30 PM [facility] Name Value Range Interpretation Code Description Data Maura rce(s) Supporting Document(s) [facility] ZKFGZo7bUxAIDpBsg0GdFhDtGDSzWI1gbax6A6L3lLBvN2XxrGAhx8ojQ8JaM3RrIAWfZISXBN0UrBAx jb2 [file] idni+bp+heel splitter+udaiq1fl75xunNh3KC8kfxTZ99KWyEpg+aA9elMK18k3UbY/JmhLOs+EyOdZwoY5hgy [file] Ia3KIzs8BNFanvRc3SzR9LqhhrhbPmGnbdi05532hbbunmocGpUxwfu78meJAax5zhunjeEkrqfosC5a adMjL4y3w6Wi0ewf4G52wf21R5srB6Re+lpQ4A63kq yvukrvoknnexy7433pbdjvqivhlepkhoe3fLL2rNp6ZuafNcWB/7z04QDkjrVjI9/BtvK3t8H174sj39 x7jy/fbwHO+09XsZ2UIVc2iOzqakxUh/3/4e/n13O1+32oO4kjz+3l1mgM9itne/jqNfDS9C6+B3+B3+ Bf8qv+is5aS2Otx2Rt1/Lu85hl/gF/g7/B3+gfMPXF cvHMM/Fj4eXn4aPKysmqf0bPs05m+rnovg+DH8362f1+P5ahzf/hn+Xd4Z/l1eC/5k076Dby4Cnf8ezs zL6+Kh0oEm6/Qureshi/x8aJg8akf0iV+X9xzD7/A7/Av+Bu4lJWrOb8Bz4Kl5Tz3Bt2v/wD/gV/gV/gk/yj jX3fCwoaVH7YojnMem9TfLE99Bv/A3+Bv8Ar/A3+Hv 8A/29EiLd0wweEGJC+E3+A1+hx/aGZTXHt3I9q8Lb0W9E+LbZK9MwYhGU4DcktOUyFrrqFUbeQliNJzo laxX4opoHlQ0wnsQ0FLG87SiM7gZ0JNM90OzJ1vQ6BTV14DnQ0eW0RIK96FgK1bQ0HXO47AuL2mA6VGR 35AnN7ju2YHY14LnE0iq8DXV22MdX8dl8vLT/ZvP6v d8l/ccw+/wO/xS56R4U0i2SR6S2hgm4SdXIBlNx+W2BD1l6V3v4Gl1S2s01dO/y3uOJ/tZooIg2Vs/vN A/L/TPq/pkMWAKN9cAiYxlQb4nJRMqdvR7WU3tXWpvIGabL94l6ZdQnyPwnBiO5mZeWFp7NdMmX/cCoR xn9/qgHH/85yW5zf/hd/gX/Kv8wa/OMfwN/ga/1P0E v4r7BL+E2EyhCDzdPgNnXuFXofVPE/4Jv8G/yxvvvcGvznHFOfjVOS5/8KtzDH+Yl5Az4I/swvwK0Wna BJ5Xsj89sK3TTvdGok2sKuSqadA/OrKDVQ+t4qFk04DehXewo+NBfZ0MYqcyeRd8V9jo/Bc66fj97yiH 8LJ93dP3eJmg8j9ZRY+4jIhu9z5x+d+9ySBwG0mh6W vh6Go1Pp6t7ecSPCYwbKR6Es36374a/pbWU95xtCRU47YvTB69X3bt0Hmi3hLzD8RMzhd/5iqB0qVHt2 eE3vgORdfz3xfcObm/lVdy+2KhQ9svbGcbm5rLYIw//K+77xho8ydrrjj8aLf33s71f48y1P5Nv2/J2e R6VW3SPwIuZ8u323k//NMn9W67BylbSA6ZX1bv2FB9 l68r04kr3hT7644dl7Myx1GqIeYq2NvNSNuhm+SXhbywnBeE1MvpoO3gvUNfN87sRs0wwLGNfNhp+c3E +QjXc58c1Lbqdq6c67V19iqzZo7qt84T9f/8SiKttPnVcwy/wC/wd/g7/AP+Ab/Cr/BP+Cf8Br/B7/A7 /Av+YE5rq78Ma42xthRGq7Px0YH9rj38ZMJ/4B/wK/ wK/4R/wo/na3i+m189x/Av+QG7JjW7mVcMLpt5ObH3fLjV4e1ndq7xgsK7e/Hxpap1Y7Mh1S4fnfCo28 cS/LckTXMmMTj0Kk8Gj/UzWC123ow2/+OJ3Y9ep3jvkuT2xuM/ijYe/HyHofAD8b6j7D9lW0iM3Pizve aPK138zdVDjad/kjP2DW7rcb+izwx+pekggRSgl14x g1+n92cW8Hd8Cz9c/AK/wN/h7/AP+Af8Cr/CP3E/87n/flV5+0Lo1DuS8/Cvh+f31O869b86kjCVv8/u wa9m+OUjI08Qi+wYk6qo4ETfVOdH6+oo8vb38GdAzxS6nlBMno4FgHs+L7M7wb9/w7/gX+Xf/Oo5hr/B 3+ORi89tgIEZgWg/dd9dqcAzDWqH/4R/wo/yCsorKK +zzEYsUxquTf1I7mhCn2t+p0f+KuIf+lg56zX4+Bi1oX1GQ9Dsu4lo8Y/4DecxnN/hd/gX/Lf2q94Ypg oj3ylU9+OLuGeNH4JeagDLsUfcM1TJ+jxQnwfqc+pd8hsiVBgj1sc0lWcY1E38OdfQyLvzgAo+iuerqM /Br84x/B3+Dj/qs6I+K+oz+USH6EyYxPyMI5A0UfSn XC3Z0IsEbU0z21A6Z2c0Vo5U+ck+Kz/ZZ4e/wz/gH/Ar/Ar/hB/11FQ96Fezes/R739An4ejdqgEmxxd b/Cj/Rqer6G/DzPDsl35a+hWfKPbgF/hV/gn/ZTkE9ry8Xr0Xf8LM83gq9xZ0wi2DdnIs5LUdRO4sae/ lM3b3KznibRZ+36P/FWMj5G/irHVK7/YV222jwR3+A 1+hx/adry/Crc1z+2AibL8Nv5p7DcL/rr64l2JOaC/woL/oIS58W7coGO+mUs1XEU89AJIi+RUN46Pd4ty yuY0Ll36mqc/gX/Ovxj+BX5xj+Bn+DX+AX+Eg6Dz8R/9GdJa7bhhjVpbPyj53Uzui2o9W6CbnI46y/Zz djdQq0wqUcj3Ecp1WTixdDuzw/Cv1cRahntDkBy9bq NEY6rKhzYE0xz2YI2UNupDBhQKbK1Fjl0kp6bj8g+k8C5DGbY2QV5ozF8ljq3lZ21sgA2XGs8/JeGte9 3/puv8JIugmCgd/vfEXez/2+ZnCc5dmArnCBy7zV95P89rZNt5FB8L62Koprm72FIYBvZPr6quXW86fD cp9sP25e6uC9whHA33G12AUgqPJY4oJr4lTDcp1+91 tPEYjrxlYqkVu4zmIb/m9+ijgDws4qxzy9iSjgAjSlq8ux8KIqlvcRj2rd3DuaywKVVqzuA4bkb5xqbt huTz+2Q3w6f5Bf03yJ2ObYf/Ya3AoVGg/wD/y+xt/RFf4J/3Ed9Qb2ZI2Sj4Qk/pAkLYDICh9RJzyMn/ XKeTs0nMtLI+OJfQyAH1McpwFWdNjgiJReASgxMPmP rsdMBkIwEC99hD4O+PPMbhmrLmB4ioGwYkAoJN46fG6sUtwsJObuikTg/Aa/r563S2iqksDOf4mr/jzm BX+Kx7Gq2Jy5Bd61giEiqITZ6TxZd4DjmqX/FoUUccK7xq8OY/pBbElyP2tt0Mf+fczKt4/bY7zVZKlb v8Mu+Ul3WEeb5jHSM+Oq7R7gg3I6mc29Q5B8wFiM/x jtZ8c8e/BIEz1T25r/cYngTsM7ENSX0B9wYER/4F/vJ572kvNf8Ev1QZ2Gs/Ibwyu/MXzAP+r+wa+Go7 oGmcBKFirsVudv6jb4JkWzxPwY/CqeV/Puu6dQYijC3RmIO7V/9chR0poF0Bqwm1t+h46F+rzQPy+034 G0cxebS6yh96KXK66EcwOtY68f/A6/w7/gX49/L+qo Y/gb/A1+gV/g7/B3+Hu5B23VT+Gf8E/4DX6D3+F3+Vp0RJ6ToSaA66MlegK4pOmlwF1go/tXlwo2lM/g V/gV/gn/hN/gN/gdfod/wb/Kn/mrPIa/wd/gF/gFfpQX+NsMmTkLQwY5SwKNdVvbqOYOG/I2Hb8N5VwZ y7flcIjfn1asYw2J3ZxcoL2qj1gwTypP14907DQbZ+ odW26gDR/8fXDlIhhSfl5o+JVi/pVi/pVi/pVi/pVi/pVi/pVi/gLhh7CAJnwvF7q4zHW/paPydTrq/U jHhH/Cb/Ab/A6/w7/bQ78njgWhzarow0N2ntHxoW/h7/BX/6rgF3xjn5a4rAs+ivarqM+K+kjgu2a2nF i/yF/pRHkx/0pnzd/ZAmUKglxt5Gjz+xr8aoa/P+Og zvqeorPmM+gsvqGzxl+qmQz0Qw6Ca5Se+L3jPDV/EvnDb3WpO4Xg/OocP+W3sr8t1di5lGt2qeLlsBqL pDDoBeJJ0wn8+UEp25zQbjLAnaEnTAN+ImxSy53qcPbLv4Iemm0b0a+h/SJ/gR679KjAOf6W6hR+oI7+ 9nKcQdzznV5GuS/U+T4974w8sl/m8YS/sielVSB5BU wyepa0X2cYGLvao4nuGXye/z6+utuYpqiYYH9t7UxnBbbw78w1JDVqsxY15m7F6oiB87O59/KGdPxeG9 FD+NAbwqxkmY4K4OOhpU+C4XDYvHDq2f0mmrm1g5q+QzdJhw1vx83Nh/Ba6jDBnyWiWTZn0gYz1ctu89 d+Q2g09jEKFjmI5mcU/VX1vuo60i13u1WLTwnoXhis nr+z2qc6XlH9x0G+vvMbPX+z52/xjsJtqcE0sExtHckaxPdd/IbG73d+Z5mfLse/ccX57/xGiFTOa+c3 pb6iYkr/ccXv7/yGr/h55QgrXnSvgQdqmbvJOl0J5kgGicltxY8tiJst6Amkxdx4xtjlMmNuofrbg1a+ R9yCX+Xvd30+x/Ar/Ar/hH/Cb/Ab/A6/w7/gX+UPfn WO4W/ej3l8aRTM9dt+Dn+Hf8A/7Ut7Os7R/r9yso3G7Wi3Ec6tR0ye1Vq0Q/5V/uBX5xj+Bn+DX+AX+D v8Hf4B/7Om8Mn9F/wTfpQ3+KKIpkXI7eb+hq9zN87Qt6I/Eni0L8a/j/zVOYa/5m/XaV6Q0yhIZ01K/f McxZ/vCQ77u8Sm0Pb+aiJ/NTG/poK51MU0dHo+NUfN s76g7k8f+NUe+6bW++/M+Fsvh962C5UC46r0PUTys1/IE6erek1hbYA/ky0f6yis/ME3wj+1jg1+g9/h r/kbU2v+obWsXtcszGgp38T/wd/gF/gF/h8qm7DfGuz/Cuezp81xXCdclKyLfg/y2OA3+Cu/OQftL4xb 8hsT+altHE23Ko+XDxs9Vd880EpzF3k4eAk53gJfnG Oa5redbH+noT7j++H26mdQ917fti5Sa236suTkSu9qiiVC7gemq9566wc6PZ+CX+Ux+itHf+Nnsce8it O/mmIHpy8M9B81+itHf+Oncni4l0P/pgTTyy0P5N9s7M1J/fNC/7zQPy+Ud6G8C+VdKG/qs9FFUY6Iwb q/wo/xKPJXeWzwG/hYL8ubiC8LQ6y87M60hL+dY/gb /A1+gV/g7/B3+Px9T70EK+Gf8E/4DX6D3+F3+Xx8UK7JeToO64OfvcN4cYmvjQCX2dRopoT5dPzxyW1n jZnuG2zfpjsI8faoJsP4bdhnZmM+EzMPOi6n7lWH+AX+Dn+Hf8A/5Ra8Dw8R/6Kd4Gt4JK6Pc6ZC5qqF t+P5Br+r5Z6majT/wN/h7/Ay5szoq1q5quL+hX/CP+ X7qL9fgybt0inl3Nvu2Mwz5i5Gw8Zy4x4v+MOMb3l5/IwvhvWDhvyVjZpPaKO+17vk498cBE/CDj70tx E3+A1+h9/hX/Cv8ie/ymP46/jOrbCwJAg7nDc/GMcd/vpeZlg/gWp9CsT5PrW5K1X+ypC/MnB2TA2I7+ Ff8Ff+1Saxm27d0Nx3Jy0pg/KxNgX+Dn+Hf8A/4Ff4 Fm0Sg3ozgpHt9t/YRPuN+f54GhUbddNa95c9Hbn7vZk7tg5/m1+NnXMwq/yQmM6wpyc0wlh6+ZVe4a/1 Yfw92Yxmfr4D77f7UvCjLfg/Xd4UYabjbl/Uemfb/Vytzg0y09fk0z9vmI+P//VnnoOZP/Qz7PCHBlyk E10ip41MjHm5Zn0+4parw3gQl+8hAQH8e+uI3+z8Rv 5mz9+K8HivNrTe+RvmO7/R4/jzxA6cL9/XtJHxB24J3rEhV/UxPpL277QbSrpGl4Lg0K28O+q6tLkgha +CEtO3Ktmbnoi7s5I6QQk1ocgRzP+qWjT8yfA/TfzsRh5aN1ivvWGwSbtcBq7rBy9sIy2wMx9sB60g/S 7798V0b4E+F5afzmbyO6Mrnm54E/yVn/Sr8pN+Vb7d u9mz6Np8C69R/AN+hV/hn/BP+A1+g9/hr/dfv+r91yN/Iqkz6a46pH/P4wZ/g1/gr/aw8vs9fzp74mbr 8A/7Is1ku9cSxUZrp94NCT21a6Vm/vMP21H8zusLs0Eq20jt4yla2ggj7bag6zda2e2xycZfzBZ7UsoU /4B/wF/v+y71/utS7/ve6a2kVr8WOZHH6ywvfE6oFP t5H3ep+QwutR+E03zQbuE/hcfj6We+NJ46PgxJ711uejE+xc8ohL5+OL1Xt19KswfikaHshYxhl+cY/j 2/bsbvd/+cx7t/asVhxK7fu3u+VuM3u7/S8O/+wl2XyecTIA398sfMLtwJ/ga/wC/wd/g7/AP+Ab/W/W x+afz7Ep5/sXGdhxKJeofajiIt3ngj41j4SR9BMC2P mxb8WEa5blGNmvF6TGt+vccrvge1YqZjaGbQn+NxVWwL4Bxy+cCuCj/qs1Y+r3FcVz9Cr5Pz7Nx1X/7K t/us72U+L/qyj7iBiv/kU+BH+50ttiMkA57GbxQ3ImMm4Z/wT/wPmnLc4Mg3W/y1/wmu5zkjcE/0yF9F 2SN/gtyCg4Nz5m/wD/gH/AlfQKGE8zD3H3XjCUeyw/ A7dJvFLkU1LfN5oJlkcL0M8/E8Ra7K51jn0Gbne2hehZC+VfTzXnzSY/6QIHyk8Fm2ZJ6Ff2Yf+UlfNb /O1wV/g7/Bj/FoCfwd/g7/gH/Aj/SggWalqZgqJBgdFclRflvH4xPkulgvhqm248pjq/A3+AV+gb/D3+ Ef8A/4Ff5qv+pr8iiyEg/Bb/A7/A7/gr/q88L+Vwv7 Eo8is6Lt/9VqAr/A3+FHeYNfzfDX+oUV/Ntsrm7jSqUaop+vVu/7K/jV5mYr+GK5bllvjoD+MuT2efWq qvjpJZ90xMdukjv/wC/wd5yn+HLYcbA9S3d+Vg1rhkuvykK4nHW+tcCvFvjVkpovuqT2+2lS038S3Xf2 5q5e4+/qF/wN/ga/wC/CrH0syvd7tw/AP+p+Yv1g3G esH8zj+Mgtj2w14QRV1o9jmCS6+B3+Wr5ia6a/ihjG/SuG4maxzD3A29P3JTPqZ+rz6PAP+Uh8yY8O4I jbDT3V6mptRgpW+8XWiWug/ATmnLTCU5z5/67MX+16aTLss9k0/y6t/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/IzQpeel7Thn90ulsh/u/T [file] rLaiXVT4Sq1VedAkNRMvYFHHAd8Xr120ZKMlELJIXrr+ZctpwMYftQhaUODDXlQpSwEAJHRGV8Z= ID Date Data Source [id number] 09/24/2020 03:35:30 PM [facility] Name Value Range Interpretation Code Description Data Maura rce(s) Supporting Document(s) [facility] ZFZBHo3xAkSFOnCdx8VyUvAiOCRkOK6nfpl8Q4A6qLYjL0UhdPBqv0ovJ4KiE8EtOUUxFNGKRR3UvYYz jb2 [file] tUHOqmHDBVPQnfCqgXfD3Kc9CQ+bdeJi8qJ910/ 4vrQ8Ba3+bdr4UtzCThiob/INOmvv+ZjoxHpJ4YFmejN6GKyXf006GoILN0uj86/3RMmma+/0DtS8sHD YtMAj8mWiKI+gDzX1/M7PHSjur+pdcPDkSNTzhBU6vnfqjOremIRybHDvHJFSTwLeZxroF/WUomu71iO znt6RPWt0KOFca+AGlKA0faPuGY8Umq1+hThwOrTw4 WuP71rQ16L05rrS/H40Y3RGWm/vCyO/BYtAsS7KwPxqtDuu275c4HalwYKMX1UPTur9PuerON3y8PPL6 cYTHHu0Qv2Q/HMEtyTWZqPgVmp7eXb28jlxpe0LIPBl6r5JmQB6iIHBtKAtsfQCSW11T8B8PuVsf+/73 ZF8QJ8AmYGd5/epBKvfQkorW2Fir/sWpLnyzJpG875 8GmGvue/w0uW07c3e9AR/P6mHOs7JTM95Mzse7AdZLCkzpbO2YgIIeJuqR83jCHS/TnFhSaPH0itYJ6C eSU+I0Btzab1iggibR/OgxbCNAzS0eVkrf4eTMoCbBJ3vDY4Ywj8lQO8Jntrkvkq1lrF9BYRoXsEBXmZ 9lBMahDPYnDvYnjkD/yUu6dtsxb6CCjpGIkFmeISTD +iAmySRZJItkk+V412i88nnumnpT1LypQyJlSaJRYN7VlBlqb/LPeZRLMygylCOf0QgzijonKLbJrZjQ 5mDhe+GDI7rQ6Clt7Ntu4J34chKJp+n09cT3XDsK+8JY+K7tSsRWvCEUJInnxZxZhH+MVyemgXYudaKW 0qcaVwwqyO3q+GHtLyus8Kw8fUXODQ9d4n13GlRhr7 9yBGRzXWhXz5ZEGC1nxDIH/cVPyY7BLtLU1F4S1mZj6r7uIZ9enohBAVUAQHTM2WbAGgJYIwtdrtBFOu Y+kEegnF6V+uLX0H8H7oRO5eaoCTRwvDM6Ryx3QPbOTEglGLdJYutRPfZGqk2OBcvk+A1X9OrwThQnZx FrxlCOEAv1DG8CsSnI3NtdlLy2cokobmPzxgBUz/gwendolyn Z+mewdzilIKqbHaMDj8NsVZORCOW9vqoSDdNIQn9HKYaCRJ51zE9fxRFOYJwte5QwhueIqnHzmSWHZti 0HvZqm261G+ZxKY7LbS3EyvaM0K3jnuCIAnPR672AITPcSFHa1RsmLPSLAlEFwFzNWgQnXkLIBoZyQlF 0cIpL7GiTLPhZXOyNBRVuMTcMBhibKSJGE0JInkyXQ 9VqIfnLkUgZGClqEEB4ov4OEhHMXBZ/YnB/qRtn0KMZYigyZMfDctBzWzY10QHSKWePY3ZKQL1jtTYy0 HDPUWZdx41mUhRW/RBTMzliYm+9cj+iKpHe8Fjgb2pJthZUi3Wfb4RegX7MHwFUKSTCmbyonVnTMYnWW 4clKY2YjbffWw+xDSYg+hYqM9IAk96wUtMFSZczTsC 7Ol1BW3x50oyxOcgP2hdtZkqPbDM3miCZ49CKjHu7JhWknxemUa3492hUf4RoeVNL2HQXifeYYwP9pj+ d+3md54gWQCGw/h00Id4jFoVWLnWTHlQJ+mbjSAKLI0TnGU+NW8XZmmBIAfgkNA+CZnv+CH1eis37/DO uRaeX5FW1I30CO3wjzxzHFNWf8+gs8LPzTAcYUKePm 5jPydtO6h8sbToYJo2Yfqa7jvKY7Gm6+tJ8ly8l1KaWErX3A/c9+af7hl1856KazG2bgj77aimHT/5TO hK9wc6S49EWNZzi8HCEQ9617j3sFqNPxYgeXC4gFFiftPjmefa8Tui+962Mzh2abQw3wd9/CrPe7R2l1 hke0FX58lnH/vfmvl+t6//Is6jRbjFr2GiI54aaG/8 E2fc0p7J8+Nud/g7/AP+AX98/NiZ1pi4p7mlgwov0X/4F/wb/n39/jzYhv/Eq/mBfuLVlEI/1b1t2Wk1 G/wd/g7/gH/AH/AH/BP+Cf+D44o9I90jD/vE+33dv9pqkFJj1Qj1nb/lCF7SmS5lAzBwJI0CzU3tpxGe A+eduJ4J/1Bp0XjJ8dSlO4ro2OhD5lEzO/Tz6azZm/ KfeN9t+Ei4Ha5L/4D/xPvo+CfeR/4T77sN/4J/wb/h39c/cdft1Zs3Pn/D7/A3+E+2mghGK9iGM+Af8C BiyUbQ4o5DtwOivOkQ6d2VEiXfEG3YdN5m/2icz3q22EuRdkKfTfoAJq/WbPS7/yGapbh8i7/k7+NuD/ gH/PHxT+0bH/+Ufz7Y/mcUf0df/8jtj7/F4i9to3pa u21bUarp5E/Rnmf6+XfbnvubE6/2mYipbrCS1/KjeSeDhueEE3k5/B3+Af+AP+AP+Cf8E/4F/4J/w7+v am6Jfqs5Z8utdCLo6Lv1Wd7Jo1q/wz/gH/CfeEPXc+LN7Qn/vUn3vJsuWrucbrycjJn7lmjck8cQdv7/ 12Ok9g1xa6ta4ILxz8eQy1X/z6+sObji2l99AU/n+T WVw48S/2Rprw9WqRH0j7/560p2aeK/rKouP730c+xqA8ggInkazkk+9345z/Tj4lisijAamn9sxS+J7J /72/M3n/tfsgyzMso4qp4+3F9d/1tBMqm9dPV/XYf/9aMp8ZCqS/11yIVrR9923f+9/rm/lrPPP/fXQv 7P/X2P+NfUO6bttcXpDP2Y8+TBZ7g53151YKv8x6+W jvmJN+vRWYyjS9n943ZtmBk+x50Z43/vu/hKC7723wPyS/zvJ5rt/KiIotXNRw97o4yig1/LtFKdx9q+ z/s5prVv/MRdfzctjmkP8762A/wD/oD/Ly8ugkxpgo/Bv+Df8N/m82yOg2nh2hNfrqpvhnyYz8ddsfh/ zw9vxI4xg9s1pO/w+3iwDf+Ou0AGnL6sAfA6whPEne 13s6gGs1rBotRy9Qg9kB6nY2w2m8/vn3shpxyzmC1ijC/hn/Av+Yn5J7f810a88t6MnoTqgce99p1Qqv Trfvd97h874z3yov9V8g7H3z7s2L+87zb8E/4Tr+xQ2zTzd014+f5U710+/vE82Ib/xPtMbY/vM/vRV3 /1qvyfeN/i0m6ft2Hp02z/6KvQy+vS6v5QVCH74F7+ swTAR1/96Qb5P/TqAe1q5kyfFroya92iS/Bv+Pfxn+PEqa+04xA660eqmIFDgWe2P9r/2w6/w9/gb/D3 Ju4yslDhK/gH/AF/wD/hn/Av+BfOe+SOWDyZuh9TswK1z8lsxlU/T43a9q5+ercb/Q7ef4UuhzmtG/hP vLqnR1/qwC235c9s6S0eAz0++c2Mj4l1+mppWvXRV+ udlv1g+5bDo6++55cf50e36416H/wN/g5/h3/g+YZNS0i6w9ngepzoP/5187DWzc/a8O/l6670rj0ygu bd32/D7x1+v/texmej1Yv3unQ1E580ydnmXWu5L87FjUww355ya/m4779ijzc5L4745afy5cy61pX7/A 3+huN0HL/DP+Bl6Gz6Sv+Ef8J/4z1Trb/bG/59/Xbv y3ERiuFl7Tg7St8Yz1X/w9/hH/AP+O/xl1KCg2hc/WILBER/XzcPdp/wM7a3zx+/4/467q8b/Li/7t/n7kyn /m43+Ff9Hp1Q/4B/wB/wB/wT/gn/gn/Bv+Hf13/24NsoajPv2R/11Zk6/zUxMZfT79e013D/G+5vu8/v mTN9t+HH/F75ExCOhE+n2crEVs5dmFxlnO9KuWezzg 5KL74a8Ebjbb5LqFga9uaBBJ1wcDMigpI3b7sm6An8ZTH+HrM/18k8378cHbU5I/6AP+6590z1rpZj0q xcOpfp71Pr/XwmRr/r23fzOz/Bb/A7/Ld+nzRVt07s8ouL0/246oybyZ30NQ4n09J6Jsk/A/dX+iq+86 Dv9i0/47a/JrqlyQ0rNoe35RwDbCu1gBTJVjQbBTm5 Dc785+pdX3Oi85MKCd/1Dou3130/bn/x93V6fHK+Z7/9mfmc/a4N/VdN/Ve5L+3q9Lntq/OJd+Y1n/ff lvOf//jueHaWoC9Y2sNB/bxrn/nO8U4c/sTr+s3RV/nXxY++ev+F51gzz2gLn/v75O8/9/i1L99Gx/bp zHP++j/3990ex/+l7Pd1U6FHblflLS2gPiMtdoz6RC 4E5+yjOPObw/XLs3vdHP15LT/7E+9Qzo++Ghcx4Znybne7xT954OrvTtvR6KLvd86pkbK+xKt+gyZ99W wg6rLPNweb2/Jx77PZV8g154J+Av6AH+UZ+sqfoUcS1jKQsO2vjich8090phC+3lhCGaNPOl050V2JP+ FnTl6G0ybbKdnfx5UfTClxd/S8SF+92/Av+Bf8G/77 /Ilbg2uhxqzeco+3PerPbX/74/A3+Bv8Hf7+kZPWfPOo7Vm0Xx+Ef8K/4F/wb/jv/e1272+3B36DH/Ea 0uQFi9pDRC6zNjO1jkab5bgtZ013V/gn/BP+Bf+C/+rJbldPdr/tUffbHnU3+A2/v3qyS1/rj4512F91 E73z42h5zm3p+qrJf/tju/TKej8pmdQ+P/H7hd8v+D f89/49y1g6mnffy+/7XfrqtEdd+urd/dzIVz7x3o68E/u0bi7w5yu5YjWh9Nt6Qx+Ef+L4C+g37av0ex 9fv/YYaub8JnwAliZg0oasd0Yys6gz0DgqN+wvqigZyarmbxr9En/98myhg94mvr8z+2b9svEfWZ5FsI /p8yg5bqV2F+dK4XvyR/D8jvu+38d93++jw9/hv98X uvTVlj/gD/x+0zbgsdwdb1Q9Pcfub/t+1APxxgO/wW/wO/q1ksDUhD/h6nPj0Qr2S/lpayB0StQ+CtRX MXGcheMs+HF/A/HO25/TJ+0pKI73OV7C1U16+6O3hJ1kaH0J77gj/k2E9dnaY+AP+HF/54R/wb/g3/Cj QHpon3X/1dF/1dF/1dF/1dF/1dF/1dF/1dF/1dF/1b P/KrfhD/zLkeNd1f7iK+QzrFgfYlcsNy6Wom/1nrA9EL165fGE0xrPweiB16A99qnXH+K6qnas9T0Kdp NmIvai920lu+P53YhX+rkx4YBd6l60CF3R9+F3+Fg8Dc6Lc//qt/Hc+mpIX+V2wB/wT/gn/Av+Bf/Sanchez /5DOdt84F6xhc293yY/qth9/132NUbI/uvchv+/m0v rc06hGJ0/3nYbY+H9wj7ZLwtNSrtPAvPsoWcDkuxsex+Df++rq54J4yb2xpKAnmy4ASrk16/+9RNd5Jz 4L/v+8Pv+/7w+74//PbXDb/18/BbPw+f8E/4F/wL/g3/rZ9Hu+3RaLi/7T6/A/1Tk899hvC/kjGRh1H/ w3/uzvX6xVA5pC+qRrvfywa+Ix41XxydxIkGLj75XU T+SjnU+Yo39v1yDa9Xt0g309ncOU1yymWrh0KM+CvFm+XuGJRE08x7iVA/wgC25yHvn6evkq+y4Fb9I2 ho1Ka2zUPjIqtp6Tuy55f0Kjq7w/h4qRG0ygzfV1/7a/mbz/21PM7n/bmdpA545kov0xWqOhgdMzl1Xy DAmzpd1C03i2Il/9cz3Dhq15Bn9KoNdYPI9+96mrY/ ot6VGVnkRCmKV5l3wty3+6c/eviHQ8LiebseqsrdDx+h5+Loq/nomKc/R/mg5Bu3v6XjN3ALlv6AVx6z PMeJ+776yU0OkDiZovFpdkr+Aq3lf5XOTQ0I81tbIzkuPs+l2DX+SnmO+/13BMpzBPwT/gn/wnH0/Vfb G7/f9/c5/zp70Km41G5P7221wUHfJeWp0i28bb/Yhh /oiaoEqcl7Ka+Zs3UMaKwc2zfjo/e0Yj7i1Krc5Il0Gx+tMYz0aqifhk+92/B3+Dv8A/3Rr1Ab0DU+Lt futs26a+HH/V24v/uOrzvTZr/bBr/Gd1y86raKvirl5o461ytYG82yAm/jlv+ns97e5B/3nXl818hyrW +vDb2x7/lguWuMfV16eune/7UWYo86/duehvRVbt/+ jXgaft/x+47f3/tfkP6ndRzuD/gn/BP+Bf+C/35Pied+Fkw55tuVWmpq0wa76/dD+urdhr/H78QvmyZ9 +Af8A/4HkJUkVN6RkJIR+cnD95l9/a2fQ/zf5Tgr6Of3R/wxbvS5dwGUGoofejafM20VH25GV54UO96B E08EM94Ti+/9CkL2BY1n+G95Dr/4dLB1dmp2tWgDjH 0O137q3+A3+B1+x3Hu+JyQvsrt/tzfdBznPr/DIbqU7iOknt+Cle84m4fD/gX/hh/Pb7/vg9Hv+2D0+3 4U6r/CVmR4Pjemo9ZcOj/1bsOPeNV/ldsD/gF/wB/wT/rxit6j0aJ/vvnU+Ctta/zVuw2/wW/wO/wOf4 O/wd/h7/Dj/o4B/62fYyDegXjHhH/Bv+Df8N/vCxH3 /Tfivv+G9FX+pt0qVzA9KI4f0qM5sc/5d6Kc1fv5W80VThL/hB/3N3B/A/WA5c97z+q/erfvcSbub+qr 08tSta3/g7/B3+G/+bjcm9BvBUuo6w0Nprsey8cn/Wilber/Kb/GT+Y2/Bu/v+V8P607ZcoefQwQe3Lp2Oc7 [file] 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 consultant/HaR80MC4UnoQ7pSWzOZ9Ib0RvXYf0mNy3pcTVT [file] B1EOz563U76pz5/39vF/pg15tBV+Sd7DMG/s159/9d t3f/ivb79+98V/+wN+7elK72nr/eaz6/JdBbU4thR1d9d1mC8//J4w0931ipC/aG712N+faefvZ3+9h/ O5H339/Li902941ONrv+/wzbuuW4555tgj9698+qvfv3v/4auPf/zaoUkSV79fi++/+e7jV1+/e3v/7u W2q975/vPf/ibqV8z9K/mNqi7lE9Tj9UCT84t/3evs H776+rsPb++//MPHL3/1T659Y7N9u9/95pv3b+/f/aux8152+/b9N//4/y4NR1268/XbF59//fU3H9/e f/fbd2+vu3r7/IkZ796/9frtV1//w+fvv/p4N89JjrAa8/z2m6//5z0n9h0k9qq//51n6bp/9/mv81bf ffGPf+WpRb29q/eYQ2726z71t/v28/evU/7zVx+/digital product specialist /h7Zt/zLOV0EaqW8/+5b989/AE00z0Q5+9f1n5X/0zx1o7tqV7fN/39vbVhze/0/c//51nlr1/98Vffv q3P/31xx/+9e2//5+3L/7n9z/9jz9//6dXL/rrn77/7BA1i76ui/zd219+euu/atev/T87Y612Uoyz08 /9p+ihLMm9AJR0+OOv/e8S0rBBevwE/oM5cEd3ujIn en35/jJ4w4xP6J0//g3N1jN86lHw0cy1V+RhCtax3y1X7oN3sjd25tBpwBwRgfQnqv4wvL/y328538/d Medical Scientific Officer+2mgO3U1/7b59/+fbhiy+/+6St/ZN/Kgv/+g2psZrkQB/Pg9yro//6E/y5UsYZfl+p83UIts/DT//x 929//f4/fxqq4V222r3v8je/+nIOa7WPSH4/P/sBv3 3/9qef/uOHv/4/3//5b5z+pJWvbi3e/984/QH/6f2Ht3/936+b/5Tqark9+T1p3c/KS2p1qQ/6+Kt/+v tPRfM0SHK27c/VBrqBDIc0Cup7VZ1BBI4L2ZixGW5EX/95JB4x09++/+XHt+//3x/+/T+/Nc+DE/3lh3 ff/cKEofE31dR6+z9//eQd//RB/MMPP37/549r3z6T /+L7//3H7//91dl+ssFe5af+9NPP//95WaT/+b//5/99jPj+L3/58bPXp+nPfnDa+9u//PQp9Hvwe2Ht bMGNf/zhj//zpz/98XV/e04f35n2b/5TG4QYq//5T9785w7/++LLdx8+vn37+Vdf/+nrIm8lWp/zu9+9 +/fiz555A49E0k/9J/dHlLytHLu//f5//PDH9q1vl1 +SIkTtNSe8jGxCoFdn0w2X61Tq7r7iWj3jX97P2Mak8sjvj/Pu/evtf/4+/+XAh110+eXpk8nre6SBuh fi/zmSYEJ2PzVcHAJ3jfAtaBscaqYkJdsDHQvrDEVmLwy1VC0AzRCgEBFbH5W8KLJcdi4fMQElSUQjvR FeKbHyMKMMAB6EjTDkGD8GBIt2FBFrSLZbGpNbXLTe rbF0VTJzPAFzJJJfU2LaemBnkJMaXVOaUg8+YX2ww3VbRaYyHGRgKjo7JK8XkJAfBB2RgQRlvP5ibjTb D097gpZqIPTeIlwpu7NyZWiwIYEMLV5XHRP3LGT1BFJhSx9+XB4cy8LkAvNoPSAbEnr6YD6YrGByp5Tj FQ6CC6PmTNIoAUVBCFH0l4ZhQILgrivfallqM5EoUV S9cO0dNTB0XTSbIShzGYEsRDUhCJT0GrGuCFcqSQSvKRBgEQFjJGXaUCo6rXAhEK9QR8AgSWDyVDUNTH UoezCfNw1iGZASBYrCTIemZmKMO9brYFJ1BPDeIWyjQ2P7UgppI7XtZR8FQ8HuPZVpLTZSDRUqcbXjIX 1PnaNccD2aDTpLMGMGXJdLNTgrNiX3k93uzvRAZYBt YEBrDIjoOOWsMRVbGJZdRNLkUPScXKXeXWNyCR4NP3RfOSOdRLSRASN8p7HgFHJvwpnuinszIr0owsRt Ymo+FnrjTGVnt9LsPOqjX2J3fVRxD8QjU1KsFH3XoZNvCVfjYSSuTMEnPIWkX758esQvWO5+TG8ao5Kg FbnmLWRVJDQcUZAcVWKxDVG5PaCzCHIjXFZnYQDnNi G9EzViMpHFKAUfBOL3KTBaUOPiKIUsFEOvUFmrUQQiJSB2XrdwSKPfIFZsBM3xFjDbUAXtBcWqUexyKV NsUGXtlkDVAUBeIWJtMEZoLZC6BGDeHWLyZUemZWFgALEfLLB4ZROzMRSxZI9kCaXcLQGiIJVvTjbpZG MhWCRmiqUQLTHkPHLtPPJ6IsPkESPdJDCsLIazAWRp MATfIvz9AHTzVCYkLK6bTeJdWFWvFJE0QRwdZMQdLDEdfqAVPYRuMVUeHCNqLyTyKJLeQXDnTLetCVYs EJAzGuQkZOAfXSNlKD2nToYcKOBpDCM7MIIoJTRuKWNsinETZQWqDXLeTKl2RZCaXWViHAOrQUccAXWd JVZzNXV6KRNeCTCyUV2eShVyOSUeRFXrNTJmKBLpYK YvyuKQHPAwXDZkGUC2XJQoVBWtOVLzSQheVHCdKFZuDew0GUIeMCAkEU2yWuYmLGQjLZA1TYOaKJSjWF AqcyMKUTWbRVG2LOH4FZIvDYPnGMGyXZhnXFFwKMIrKjY7YUYmMZTdFW2dStSsNKKhTUD7WvAyAPAmAF CjmiUJCZYmDWOtJGG8ZmPyVNVaTXMjBBvqTMBzUPQa BKFhQRF2PJS0DTMzYfCtKXfcEUBEFBzWG2HfcnUpGhJWJ6tcJt3cNhKvDJYLC0Qfu8IhTOQjJAOCSp8+ GzA3MAE4qRPqVwz1DXM6YBgoMIDUFq== ID Date Data Source [id number] 09/24/2020 03:34:37 PM [facility] Name Value Range Interpretation Code Description Data Maura rce(s) Supporting Document(s) [facility] ZDAKHe9cDgNWSyYwm3YgNxOoHWOiAF6jwbs6V7N4aOOfI3KzmIYjj1qlM2QvU1QaOOSmSGEZAV1RlFVn jb2 [file] 21i144u/oz5HzOarsM/ribbon weaver/ribbon weaver/ribbon weaver/Ut8K/paK7GV [file] vp production/Qee/Dc6f96nI76CO4Et6e187eZWhm8jP4aYDP+hH5XSG/K+I6tmE3gGBQY7d+d5iAllbzT2E+pYJY [file] 9Ifk386//iHeh8824hU9b/7h/gjMQ8806nn1ih545e uvPr69/+SB308hS/U67Nhb233/0iXSO584+0/ff/hbZ6fdh7i+yuJSH071V+9+/varj5/9+HNRpev+3K c/h1U838g//CXY2EBa/tg/vo0jyEkz/fLrT9+/vvKfvvj4+f0Pb1/9/Fle2ds5/kkff/gUgoXrom1zaT 2K7rlv2xXJ5r/4e7CK8z1vI9/8/t9+96c/fPevb//y P2+f/ce33//777/93avX/Xq8557/9s9/fesG//PfvP3x+zf9abt+Gr+tn2j/2GFats5xr99a6ML7w7iI H/7w0//dnk9mW93TA/7Xg3Qvh/rPg/fr8/6XEA9vPyN87fI8B3cs7Jvtlf+/0W1e5eOpD82av/8c8Gve wki33miR7ieIlYbklJpL94/7t+/+3IhY6Mql0nwrY+ /+0jOL6g880vb5I9rd/uCfToR/yh8LMlKHqd2Kp4xIm/7ZD+Ry0GzQ7CGN3y+8M7520yi/9Xdvf/r2v7 77wbe/6eR1nUKnb+gPvDzhPdgrHj/+9g1+/f7td9//13d/+t/f/t0duU8V2J/6+nP5/8LXb/BX7z+8/e t/v07+d3/8/pewH3FgltZ6+VIB6wyWS/3Vx9/yKq9L fL1pF25p3b+sx1ugxdDEdVq3C2G0GgrrFNuNj2Cx/esfBbn1E91/5OPbt//nu//887vmuXDSf/Lh3dc/ hEufgJ49H9//86d//psffXpfiL//7g/f/m3Dj0b7CW/s2//+7bf/+epsP/qGHethv/v+x///3Cyiv/+X P//fJ4jv//pRU6llmeK44Uh7h8/xx99+5wG3xDWjzY m48Y/f/fY/vv/db1/n98kr/rrUf/TZkATJz/1vy6565g5+1gxn9p75iPl76v++/LEeEylGpr4ee1567+ UDA35tvtju8r//R+6HJnmbNVZ//e2/f/eI2t35j7+NAer3a/8bcUfnDzj3b054ji8yU+Xbu59/fLXHXk GoO0tDo06//T28L0EK9lG54xtcz623wRwyl58A1EQl WvDr1v6RsxfvHonpgeCeiKRwQF9XLT4nr9HfToP4AXBqy4NsZYlzIMi7bFDsYJccjuLex3NdcknxT4Yg g5EmGxHfFGQlJfDiJqz8XXFrHwH6vBCmOuYtZZAyS6ZaXPKvHwI7WkTbVNXBUW0HVQKbuaGmLaLxTKW+ LvAyWG2jxackALVea2ZkXVvaUWacJXUvD1V0eBfsCF NeO3OnhK06QZRnB9DeyfO9HZW0DTZyFyDoFNOckHElUWTpWSH+IqSkYL2akvzlFEWlv6JjSVvzQRN4fX 6wKAbDRDZNYNxTTKgqFhH7g00kbrJOCIPjWNDlGM3SxvBeuJhsmiDgcLMaJPO5KgRrHXMwXJAuUIS5OZ UZSTCnBCKzYVKtHRGvJ0KlyLomTSyGWNOJCDyGWRts VrVla6E5WKLqczKFDDvRVXdyNQDZP1eTTWY7ZBVhXpMfUW3OiMQtDAK0NIuXMNUBIQwWKUdvHxJhs6U3 DVYqY3JxPVIuooNnOTSTIJibUaicBV2efVizdwayI0MotJSnRFSFMRJjTVOzKCSbJCJxN7Urj2H3V5Px RKiVKUYXTNhXSWiqSiH7p30jfpWOHMPaSWWqHB9+ZW 5nd9UlFn4FWJHyVM0pszt1RE2CdHYtGI7ZDYsjgvRhJ4gczqAkBcHiWZBEFQ4nB6WqjJ51AMD+PmVuZG 5sypn3bsJfMrIwWBPeXHTwSBBaYYhcUUApOKBdYZYrIEB7PUQ9MIDoKeSjWIIrNoFfVNByYGOiBKHnxv RCLIJbISO7KFg2CYAaPLVaOXBlUBrdJSMhSGO4GOX2 KFDeCIPyIW8hNqBmORYbEUXrKTOjSxM3NlIuImMPSPDxSVAcUUCqLyLzPKFvRZBtAIvdCOKzEWZyYPv0 KCXtFYSsTE7lQeMlHUBrWHMqJLRbCRIhTDXrfsSKOXHnTZQyNKT9RNCpOHSrGZLmCTjxSMHkNGQhKXN5 KQHeZJWvYV2nOsMbKWEbVZU2KrAsOCFtESNvenJNZK AdFERyYPY9IGTsXTTnTGDhUCgnQWImKKPtGaW1MTXaXLUqEH0zFxBsGUIjSOT7WQZoREZjKIFgddZDUP SxOCSgROm9QoXbOEDtPBCwAFpbBBSfLESzFBqiAHDzHUPxWF5dJfQiQUXrJHChLOQtRDUvJIFtynYOYI IqGDXbDOV6PoXrICHsZZYvNRhvCVDhVIKoLTH6EOAy KRAmYZ5oUyXbKCJdKcJ6OgAjJVTwJUZedpBYFSYjZXPtTOTcUPFmAFSlEAOyIHbkRGTcYFWkMwI0OSBb ONToEO6iZgTiTPPrXBI0ZTArYSUjJKHkeqHAKVWiKHJyIUSjFIU6XTEeRTEyXSv0ncPlqWFrYox2Mg0R gLzxDFG7Nc4PzvDzBZLrSXQNMo9Gi163LNBkXOZEQbk+UoqqzUIulGcjAXCYHySrRaNUCNOFP5N= ID Date Data Source [id number] 09/24/2020 12:38:01 PM [facility] Name Value Range Interpretation Code Description Data Maura rce(s) Supporting Document(s) Leukocytes [#/volume] in Blood by Automated count 11.5 10*3/uL 4-10 H [facility] Erythrocytes [#/volume] in Blood by Automated count 3.58 10*6/uL 4.1- 5.3 L [facility] Hemoglobin [Mass/volume] in Blood 10.3 g/dL 11.5-15.5 [facility] Hematocrit [Volume Fraction] of Blood by Automated count 31.1 % 3 6-45 L [facility] Erythrocyte mean corpuscular volume [Entitic volume] by Auto mated count 86.8 fL 80-96 [facility] Erythrocyte mean corpuscular hemoglobin [Entitic mass] by Automated count 28.9 pg 27-33 [facility] Erythrocyte mean corpuscular hemoglobin concentration [Mass/volume] by Automated count 33.3 g/dL [facility].0-[facility] width [Ratio] by Automated count 15.0 % 11.5-14.5 H [facility] Platelets [#/volume] in Blood by Automated count 646 10*3/uL 150-400 H [facility] Differential cell count method - Blood [facility] Neutrophils/100 leukocytes in Blood by Automated count 84 % [facility] Lymphocytes/100 leukocytes in Blood by Automated count 7 % [facility] Monocytes/100 leukocytes in Blood by Automated count 8 % [facility] Eosinophils/100 leukocytes in Blood by Automated count 1 % [facility] Basophils/100 leukocytes in Blood by Automated count 0 % [facility] Neutrophils [#/volume] in Blood by Automated count 9.60 10*3/uL 1.8-7 .0 H [facility] Lymphocytes [#/volume] in Blood by Automated count 0.80 10*3/uL 1.2-4 .0 L [facility] Monocytes [#/volume] in Blood by Automated count 0.93 10*3/uL 0-0.8 H [facility] Eosinophils [#/volume] in Blood by Automated count 0.08 10*3/uL 0-0.5 [facility] Basophils [#/volume] in Blood by Automated count 0.03 10*3/uL 0-0.2 [facility] Nucleated erythrocytes/100 leukocytes [Ratio] in Blood by Automated count 0 /100{WBCs} 0-0 [facility] ID Date Data Source [id number] 09/24/2020 12:14:37 PM [facility] Name Value Range Interpretation Code Description Data Maura rce(s) Supporting Document(s) [facility] FRRCIy2bEsOAPdLp41/KKVerXOTya6ZfWCkmSPh8DXoqGWYrN9RsDFZ2yN9oZTA9DVzPNzHpJtRqCyVj lbm [file] N2M+LW6oNHn+Di3Ua9UrysU7mhMlZHzqFDmpKM9ZDINUO4IJPl== ID Date Data Source [id number] 09/24/2020 09:23:02 AM EST [facility] Name Value Range Interpretation Code Description Data Maura rce(s) Supporting Document(s) Leukocytes [#/volume] in Blood by Automated count 4-10 [facility] CALLED TO PREMA [id number] ON 5ECC AT 921 BY 6530 MV Erythrocytes [#/volume] in Blood by Automated count 4.1-5. 3 [facility] CALLED TO PREMA [id number] ON 5ECC AT 921 BY 6530 MV Hemoglobin [Mass/volume] in Blood 11.5-15.5 [facility] CALLED TO PREMA [id number] ON 5ECC AT 921 BY 6530 MV Hematocrit [Volume Fraction] of Blood by Automated count 3 6-45 [facility] CALLED TO PREMA [id number] ON 5ECC AT 921 BY 6530 MV Erythrocyte mean corpuscular volume [Entitic volume] by Automate d count 80-96 [facility] CALLED TO PREMA [id number] ON 5ECC AT 921 BY 6530 MV Erythrocyte mean corpuscular hemoglobin [Entitic mass] by Au tomated count 27-33 [facility] CALLED TO PREMA [id number] ON 5ECC AT 921 BY 6530 MV Erythrocyte mean corpuscular hemoglobin concentration [Mass/volume] by Automated count 32.0-36.0 [facility] [id number] ON 5ECC AT 921 BY 6530 MV Erythrocyte distribution width [Ratio] by Automated count 11.5-14.5 [facility] CALLED TO PREMA [id number] ON 5ECC AT 921 BY 6530 MV Platelets [#/volume] in Blood by Automated count 150-400 [facility] CALLED TO PREMA [id number] ON 5ECC AT 921 BY 6530 MV Sample quality of Dried blood spot [facility] CALLED TO PREMA [id number] ON 5ECC AT 921 BY 6530 MV Differential cell count method - Blood [facility] CALLED TO PREMA [id number] ON 5ECC AT 0922 BY 6530 MV ID Date Data Source [id number] 09/24/2020 09:32:19 AM [facility] Name Value Range Interpretation Code Description Data Maura rce(s) Supporting Document(s) Lipase [Enzymatic activity/volume] in Serum or Plasma 19 U/L 13-6 0 [facility] ID Date Data Source [id number] 09/24/2020 09:32:19 AM [facility] Name Value Range Interpretation Code Description Data Maura rce(s) Supporting Document(s) Albumin [Mass/volume] in Serum or Plasma by Bromocresol green (BCG) dye binding method 2.4 g/dL 3.5-[facility] Bil[facility].total [Mass/volume] in Serum or Plasma 0.3 mg/dL <1.2 [facility] Calcium [Mass/volume] in Serum or Plasma 8.3 mg/dL 8.6-10.0 L [facility] Chloride [Moles/volume] in Serum or Plasma 98 mmol/L 98-107 [facility] Creatinine [Mass/volume] in Serum or Plasma 0.38 mg/dL 0.50-0.90 L [facility] Glucose [Mass/volume] in Serum or Plasma 134 mg/dL 70-140 [facility] Alkaline phosphatase [Enzymatic activity/volume] in Serum or Plasma 93 U/L 35-104 [facility] Potassium [Moles/volume] in Serum or Plasma 3.4 mmol/L 3.4-5.1 [facility] Protein [Mass/volume] in Serum or Plasma 6.3 g/dL 6.4-8.3 L [facility] Sodium [Moles/volume] in Serum or Plasma 136 mmol/L 136-145 [facility] Aspartate aminotransferase [Enzymatic activity/volume] in Serum or Plasma 13 U/L <32 [facility] Urea nitrogen [Mass/volume] in Serum or Plasma 7 mg/dL 6-20 [facility] Osmolality of Serum or Plasma by calculation 282 mosm/kg 275-300 [facility] Creatinine/Urea nitrogen [Mass Ratio] in Serum or Plasma 18 [facility] Bicarbonate [Moles/volume] in Serum 28 mmol/L 22-29 [facility] Alanine aminotransferase [Enzymatic activity/volume] in Seru m or Plasma 5 U/L <33 [facility] Anion gap 3 in Serum or Plasma 10 mmol/L 8-15 [facility] Glomerular filtration rate/1.73 sq M pre dicted among non-blacks [Volume Rate/Area] in Serum or Plasma by Creatinine-based formula (MDRD) >6 0 [facility] Glomerular filtration rate/1.73 sq M pre dicted among blacks [Volume Rate/Area] in Serum or Plasma by Creatinine-based formula (MDRD) >60 [facility] ID Date Data Source [id number] 09/24/2020 09:32:19 AM [facility] Value Range Interpretation Code Description Data Maura rce(s) Supporting Document(s) Troponin T.cardiac [Mass/volume] in Serum or Plasma <0.01 [facility] ID Date Data Source [id number] 09/24/2020 02:17:17 AM [facility] Value Range Interpretation Code Description Data Maura rce(s) Supporting Document(s) Troponin T.cardiac [Mass/volume] in Serum or Plasma <0.01 [facility] ID Date Data Source [id number] 09/23/2020 09:14:14 PM [facility] Value Range Interpretation Code Description Data Maura rce(s) Supporting Document(s) Troponin T.cardiac [Mass/volume] in Serum or Plasma <0.01 [facility] ID Date Data Source [id number] 09/23/2020 05:06:44 PM [facility] Value Range Interpretation Code Description Data Maura rce(s) Supporting Document(s) EKG [facility] VOILZu6aIjGOOxEce7JsEnOnVFZlWR2kezn6C3H9tDZvN6OouMRhu5amO5FjB2QwFRFeDHNZZC8QiSJp jb2 [file] 1Q/dnr2vRIjARWg2ir23hwhj1OaS7K6JsgBE6CvrfX3CSU+U/9LByl5N/+k+hM4Obi2//x//7Z//BUSINESS SYSTEMS ANALYST/n [file] +J4y7LmavBGZE4uOKUUqGhMBXLMp1zIxJBKAkIX1H9 X0E3sh/hN6ot5nChcHHKQojQvp2jfGShd/ggxMcgEVrxZwqM18m52So4slyhCA77RwyfLz0A/lJ+4uY+ wLy0/xyGR4gOYu15/tYG/76bfUPcQA4yc0QGOkRljhuDvYRTEtnkoYySxS0VtBZAdf9yiDcvfz32T4zz nfw/ocsb3EXQAbbvcg550986a1yTjdGEYZCzGcD1k1 2PDYQvxCjYLnyJZzCcI2spgKZqHHKfrkIue6/WOQ5Sc+xkIkUdc3lt51t83Se7cxTmZ7gS3dw4Wn6OSw ey6gGxvM1O7n+FymBW1nayHDsjttRO1/3LqQ92gefALiWrDhnpCbJrTP+3EqYc7Si5kLDuswA0I/KBAZ YRohPN7Jfg+Liobc3rB7zYf0vYZHEIJdE0tiuJJeWo SJNCKNSBAJInwvLD/ooKZqymrvvzDSL2tTRFncIoKS+geD/sGgf0A/sQ2+W6GKaXgMY/KE0QMNU8zPFM yWg+0g/cRqIfQTW/qJ+7TB/whcg1lOamcKZsCXLrLBqlKZugqXuR4A3wA8xmjeNo/xCESCSBDpaCGT/s EcRAaRSQR+YqSf+AhEMF+J18dCwYs68mL3n/N7PJvf 72F+nLc15Zh6cK9V//SzeyDfh+XsccldFrm6MyKm2fc5k+zdvZ9QTKk2QP3uDI/GGXsOf4H1N6sfnLiY n1T9SRfJd2D0T1jrhM7e0i/V+zpoF4cq17q0PW7bf/BofQ7l6a/HpqblQSah46tdPJ0bu07nbYBmTr1A qbzlCEdl44zzHV9is36ziAvuXc/U8pppZUgy22rkTP 2yx3K0KVyMGQoQ/Tn+5xvqe0XRgiO70Zoou8B8jo+tI86PXk2Aj5HD7PN4lrepLVc3EEVf5znQ0vW1Sb 0L76Yc1KrGU3b508560BT63EdEC6T091oMv/N8LC24bcjrwfZ0Nu0Qh0Pb6J21O4+nq5Tu0zJK/G7tX7 WW33O9A4to2Yx8ymwBlGyZM+cY+kt6UYv8XjlSX3EG 9Aq9Qm/QG/R+7tP83L+t+z1y6UJ15Nv27Z81Sr5GzqO/q39yG4nKO/MWnXPr4Vf7Ht0En/x81jodi3Z+ mdn12krlq0V+hyp59qpyv7rV+2syc00TX3/zb98uMEKz1Il3lnwjC/9t6L8N/ljZ1DK9c73Nb/rvyPJX /+2pX/28Ly76SXfPzAtwTCiPJaY07Z03b85Ys0LZF7 qW0tgmfOlg6ujhcOvoJ8zGrYzPm356zvim/VmpeEJmOsiI1F6sqNEZyM/8udX7dnXAoSpFiF3VY0lTU/ HZtGZd7AorV/Waz0k4b2j+Qz+xY1Aywm2e/hriUOWi0ZY+A/UdqO+wY/9hx/7DLxwf+w/Ud7Rj/3EcvL KG4Vba8PpyM/QD+ysr88M7Z+o7Ud+J+k7Ud6K+E/Wd vF5Zb1tz+Y7722l4Skbdxkj41Gblsi/M726v4KizgbL9nJm3DQ9znFr9L+g4Jr344DEw9lN62E16lZ0i g96gd+gd+lW6iw2q1gJ6bNcyw61BJ5Ax8SA+mhuH4xdVwBMu5An4Es7T6+f+BfVN/ypZFDnjlaZ/tY+h P89X07+gMaLlZY7J6EEQL0GoAP5N8HHDQ7Hd3R+J12 nKC2pRd+es+ixuxuh3CBhm/pKTaxzK3mvu4XkpK7XI+3jNMZd/iF9lhnEqH+eS1fzI2js/1zjf+r2M+N njZqSwEAi0eqD1/Cy0T3Uw1o/qWsu/unayrPbc8/ZdKZbwypp46hpDv0a53tieSMIF/lXZZ/lDhaF2ds 9VNlz+Vdl2+Zdpd1PyALsbu/R852QIH/25aW2mT4w3 rGgRa4sF2hMd8IlfE7j7J5sE132d8g0X+8ns8iozT+weWQR66zzJbM2/WdO/gisy2rNp/hZt0otad/lX Feh6+IcHqJl7ExTJkngX+/mgi7P4Pk5DQhOhe3vxAn/pme6yfc7gO2b6OmEPaF/+tb1CY1d4vFZ9H9CY o0355APc6rMtUK//SszRkd74H+1KCYa1f5NNti/+lV ZIxtu/buc23tNPU1SGl/5Yg4o1v9YU4v9/ag146/jWV/NFpn7PywpTrug9zTwjA1rK1O68q5tGsA3/7z Ptf/tXOjJE+O7gno7W5/Jwy2Mnnp2t/fIbPe7sTAr00I/F6rfe02oCKP/692F3djMls01ncD/mg5r+Vd qkH/2D339UB0l/tY+e54T77Pv5C/oJ/Tz69K/2MfQC hFAh7Hb2K23t84g5wVc3Cz1qu/5V2mGc+p9vz0LZJqzY/YB+aUiO2efId2+2l2OQ9METR3/6nC367B4x nvn+0mZrOMS7Cxl+At6KLvO4d1/m9HT5xC5IvlY9H/x38Juel/nt7pFsZQz8Uy1Ry1Qf8Vv2S+/Qn/qu qPF3C41tc70u1Z78B/1ya4ri08h1Lg/pcX2ezMnmdp 3gan16weSYs5n8iDw43nw++7idcwznG/QOvUPfoG/QB/QBfYe+1t3EsHFmF/Tz6JO/2sfQC/RKvQFu6A z2Og5I01F08Oz4nD+rlmg8Tt6TqvI43Hd1aXpzv/RUaIj8PD/4HEv+WarANm9C4WEkZ6NyjJjg1V0f6F +z03/KWr6351F09Ss1W/oJ/nQ8gG51TL6LR/MzPpuf 2vfrvSwpRJzR4bG91Pc15fKbXJ7jpnh49l/mh9+w9K/q+TuUjj9AN/2Z/8wjbdMttWoG3Ia8Cj1rgY/l tZK/lmLE4tQ77Z65Ht3BKouv84P923/ks2DW7NwQOU6g5gxbr2D+lci5ZxwmbQ1V+lqxM0nciU6M+gbq C/7KwF8Z+NwNGt5ERs99FmOJ+sNvWD/8hvULetQX/J X1M1+w5K/q3RO72B89d74U85HA6TA9Kq3XgnZF5sykeRzfK/qqO60u4S3V/JWBvzLwVzYMeoPeoXfoG/ JAujO2fF8S9A1u88Z6W+oL/drF6xkBxoda39O/nQI9nu/E365jTryxmZugJxTPcGE+QR/Qr53N0X6nK/ dsh9nhBP0qhh+Hq1KnY82hhJ3G2Es4Ae/QG/QO/aqv 74KMcsxi3lp4b90Q+jPf9+SvpI5v/eEG4bsS9qmSPkAkZpXJvXwMoZ6ouQKilBzpiG6tpIK76v8J19ae X/xGz/8ufiOvtfyrfezQO/QN+cE0L2R9mgA14dtiKPvH+iZ/tVYmePJXaZPkr+p4Qr+c48upewEMQzhM /pDmFVvA22zIlwm2kzt5Mp0hwlnXyeX74QGDXLT0sW eTVg7ROfbObzL/+Vx5qBBzd06jpz7tnjgs4h9Zeudp+V7m6V+tBFye/Jailyn+l+MgVTHphdYl5oz7GmqTd6 xtJS/HpI5v/aTL17bL7yjVktWG//W0t89j7w7a+af18so23KHwjmrRnrI/yj6S/iS6hoGeZJ1E/tWV93 P7V6+qrHJu/+q3vbjivg0wwgDevQAfP8L6s2/I1DJr Y1grbtL1p0KLpufcoZ+fy1d1vQzk1qovyB+P5q2Ct4kp2VOTm8inF2kEayE59lbT99b0Ij96carkhgS3 N5+K1DNJnyTPzZ8j+E2Q8Tl5nl3a6ZUu/rFnKw5ozsbb+eDaMVK+56qdUs880b9Qy2k8LqRFV8emj1/t 7cm7Yn7QbO4+w/F32KeNrrO/+S3Rg814BWSG1XB3Uv /ZG6fsijGBgGpdY3/j6V/U1Aw9ysD98QmI07K9L/XJ7JiH92M3H+rbUd+O+nbUN/6ooR4ViRvv92Qlqq w2v79Gi/qf25xjN/En0a11Lw0bc1sa/4K/haGIVx92dKhGK5k9C6qVLXgZO0PxtUkmr/futeljt/Nx+I 684nCeZ8/0EpI3eY6b5/nG34r2MvXAQJg70ya8xlx8 iiKmDUUg1Tv0HD+nQm/QG/S5nsHy+NlA5tt3UOeEMhVm5QevX/Sob/JX+/jRt+qbV9hQD5VzbR+7Dh/b kr/kd3Uq2Io5lyvS+N2ZjsJS8ZB2a06EX5Sy1Q/uPF0FvAO2Rh3kG5Gz3Rm1Fa3gD1ajwtVNM6+gR33l rFdpctarNOnQd+aSWxfipw02kYX5BYp/euJ0byo/Nj 3jVdOzfqPpWb/ONPRT5Fq6xcMc8VT01G9aDW38yvV6NH5CpoU/oB/QT+jPepWW/oLre16sY38YeKSHfK +aXRihXHaV4hX10Y19En6CTvVP0Vl4MpoG+zzz/WYT+pzvr/TFc3t4UwdaMc7Ja7Lr2Wv8nnrFxmU/89 /mqC++WlA3I7c7JyzfodY3l32ZW0LZOj5hD47k+X5L /myzFfxqzWf6Pl/m+63h+LY378tv5/B8G+yz0Gcafi/T3746ox33ffppD71s1usLhZUBif+1jSRL5UGm 4/GnCHFgDLyZajkkhkyr3Ifb1OeRvo/g+BidO9jddF1C+gbqi/BWRfmsEooFo99Z1d/y1K/46gX3kcAT YyjHoXfoG/Mill850gvbP48Pz4ctPulxeL3Aw/oO1H cjnhMPrwu5Kz1Ca/hG5VxgivX4LsszQV2b/hius2I6vI5L5gig0Kwd+kv5XM7N/swHW/JX+8waM1pES4 25Ukv+bpWISotat19leb+pvNIYA5egOqKVfB5RtyVd8/cJw9kuMEEHiYzgwcrchbq/xgug1wDxKE/1Kn XOWq9S/777NzQ2+Jw1H1/iFK8aOk8meTccv6j3FQ1j gV6gV+gVeoM+52zwOg1noiCdTy/su1uYd57NZxoWp9hEl88m9YVsb+A0qT5am9+JXH+1nldc5/lGrr9a dKLb8TyJ72/yEWEV4B/0A2N0NT8a4Zs5W+/QN+td8PY0er1in/+JPC20jc7hisGQt7c5b5HcnHy+mPZc /lUmhI/lX+XaiVj+PNVchjzp0Bnp+GlQ3v1kCUgu+V vUZ4ZctfmcXk0L7hNJg/765DoccOZn4dflo9Bwwk02tV8h465L/rc/fEvc/mQCy5H9ndx7hSk/Woss1v KKO7lg40/STPQet3+qgC5ayn6H89ju7L1Gyr4m/0rrfm7/Gsgsas92TKcht3H2h/2p1q4GDs+kaLu0N6 Qtbns8vUdy5VzXv5dwbV3DxZOn/6rWooSt+s4s5/Tf SP+rhuvpw1Gv/91j073eBCufO+vbw8/+hfAz/w0//nPAvwo/72HIWurgO7bv/znwfTDq+6Iui1tbnQLi rJF6cRdN2dlREJ2q6NzzJsLb0l5G/lWWk/2FBr271LtfC/QOPeqb/tU+hj6gD+n54Y62PA4o6nl73+jj rSoU57fmqvoFxIDgC+Gc59h61razgsu+DW3Irw5/Rp etfnUV7O6+J+KszwnwVxEd+k99rV0CM8N/56SkW08G4ZW/JoqOeqMo0mvb6Eo+G/2Nv3PbetG2ya3Ie9 lkMT9yt5cKaUVY/vFgThjE8YV6xZkF8hxzB3rdgLQS5DBwacd3FT8zJ+CiWGIG22O8ZypBlW/tY+gD+o C+Q9+cD3OE3Vx5x29O1QgR/ogs0OezZf4bMfdA/[place] PyX3a3vt07F4D+o7Ud+J+k7UF/qCcK9K9JkN/alMUdI2xx0+ql+nPffrtOd+HfSFgKXl1Mt2o7/s1+Gf +3X6b8/wf5No4X1+o6d/8SUu8ywt3T/oJ/RnvOpyxque/lUdC/SHz+ly+KnuIf2XamxriU+4tYKRFd32 sKuZA7V5793pYU5YheR/oB/QT+jPfL/jev55GoB2wd e+31WgV+Alejandro/Lfj+2DXMz/q+E4Q4W7w0/tgx/fBju+BKl1FT72Htxao0Ry+0BX2oVC6OCg3nL7uCdpgau 6gF+tVxeEq7yNv6+954anoKNg7L4fBR/ZKOL7ifr2R+hrqC/+hV112b/r9miMhNbqpD5o8am/8RvezPq f7WZ/PqL690Jdj/AISa1IYI3KwM92Xhu5excp5Roav b3RH/4V/5k6me49i/4K/4f8yry2vi1v0/WAtcH5gzZf2T0ohjO/kjpx7u07azSfjk7Wfjids09XQ1Xo3 E/qzHqkH+m9c0KO+WH/VA/BH7SqY59C4M/EE5H9FoDN5wxajajLRIqweLrSpvsi/6lh/1bH+qmP/YO/n +37vaM/UO3k02dPKV/WO+oK/5eWpEtwsIj3fy4/q4K 86+KsO/qqDv+od/Rf8Ve+Hz+n9rN/qiA0nilKvu8Pls49v7/t9+Vc59+zj8Bt9+VfJjfTlX+3jw2/0YT h/2Pi5nnceIhpms5Gf9KEkrbp1Na+5/yiP1/m4fgd7q4B/gL9GxCV95utdN0+1OJOe/FXaAfxVT/4qbZ Q09UiH9zl6tJ2fpkk8gx4y2Lv+WH/Vsf6qY/1Vx/qr PhZ8K64omCYxQF+xf7Bj/2DH/fHP1ImF954U1k2MjL6eZD19pkVWwxchZdjB7aaAcedPH93UF72gANff MJ0ZXkkG9L8TxKJUK/bFjyvj5WVY6e+ZPghPh4pC4481T5Q/lXt/xvKvbPXlsfyrulZ+W0bt8RYbPuvZ PzjkPN+R/kArZ0XKiu38/irrdT/ynHGcOj24xEh/4y 5O+0pdTWy1NefyyjHG+Te/4WePhjusX1JhR5e+le57Gw+vMm7/qviWcftXuu/m8nCa6gOf/+rOAJXHN9 +y2uS4/vx9wcikw/A4hv3O59KDrzz+Z93P7V/pKL09/NJY/lXyTkPPfroB/4wq3PmQjepaeTOd+bywvn 3suqnSsCmzC67l8Wr4Ntr2feu3/Prov65UW+gFeoX+ +M/DzvfQYcd/HubQO/SHzxmG+lqg/MB1O/Qd+hD3hX9Ou/jd1wivy03K1g0cwv8cajaO+chO0r9F41uX 1rcPP+tVhp/99hVFhNXr5JvtD/QD+qB1bO8Hs343OdU2qzNjA+5hCjnHaOxlZRaR6hQ35G69Hu8EamQt Bj6sKsHvss/QD+gJxcHe2JjNQ/bDGey805tvyjGBNP /QK/IQbHWf0Aa0UQ+jQd+gD+gD+cCxbYxwW8tRiwOdJP+hP/tTRj/7U0Y/8VVGP/TMVzmkr84j0d1+nN EN+rP/hGHcbe14w/nS3FtnN+B+DR68Se1m06Vbosg55IbjqjW5ZpbrRU3W7oqU47V8V84j4hiN0S/yvZ b81T7G+F4qiP0zm8gM686+Kttkrb/R36Jv4Kw7zpS1 /[employer] OPERATOR/kTfZF5Tk2lYzvzvLZP1cWcOOC123yyzqSd7Z/v49N+U4Aov1LgqCxsknht70M+HfkA/oJ/QHz5n [file] c8821mij8+z8nP/td1/9/m56r496+PnH92+/ff+rL999/eu963465msyB9i79rkz/7y9f/lo7o0qw5ti ffzyq/dvH95//PDl+999/nsqUWa9Uw3FL0d8e3CycF Mb+wpuU738lw3dt4457+3bhy9+//GL3/6Ns+/Y1C53P01//eHtw9s/rw1909/quFq1Dy81//bbL7/+6u 9z92430sVMoq/f/eb92+uu3j7/6uP7D1++tn5bl39//uHdx7d//k/vvvz4/nrvz0Ir0h++//XXH97/je mKHg17d7/30/RY5X75Yz++/s3XX/3Dq+B//Xesy9z3 Own3eZ//sur5/t0//W8V3gIyv/ZPX7x/9cXv496u+YdXkf/71rxj6c+1ru9wSv9Q2GP/88jO37720hhe vz3rf1xa+wl6afML8iQ+7u3ty2/f1p1++Qsr9E3Cgu71m/z5X//41x9/+Je3//p/3t799+///N/+9P0f X03wr3/8/s+vs53IgZ/5797+8uc3+1W0jzwE0rg5da vy9s1v/0UmL1nl5bR6/fjjL/7VY08zjihTk/WCf/tgwJvpqjiyht7kzhBl+dkDzr+//r0SDWz5LvQ91Y /Ub9C9b1486yrQTuKhvnl38+pYb+Vwvbhtwg7OWbtizr/89a/LVJ+9rvN4Z15/L59/8fbtuy+++6Su9s mfjoF/gy7tSluNgp+tDfKnk/zyE/osUH5YOJSV+Se9 63c//Pnf//7tr9//+w+mfT89Y31cuO93qB/2iUm7CQKr10C6+M2Htz/++d9/+Ov/+g9Ks3X4tqo/Vfx5 /FmZ5sp9md++ffuX//m6+T/+5c8/EC6EuQpM+VnEg/3jx1/848c/9InVZ8G/ph6/8PBPSl/SRbPx3i56 Tyz/esWE9zAvBeOQ79/vamPf/PzDzz++ff+/f/i3/9 hrngen/vNv33/u3buui5xlkEv8U6/9pIt/+iB+/cOP3//ex8c8B8Fqao4///Z9c30m416G6OfO7lr/// T/T2dR+9N//Y//dSp60D6/+bYq04F9Zrww+v7mL3/8QTgS93PpQMnd7g6/+MN///Mf//E5o22t8bp19U fnrvQiee6//zws6u5ME+++eP/mm3isCt/yq/943eW6 rGp//dvfvv/j64bp8d09r4V//3ntHbE889xB//6//fAmb3/90es2knq7SJpBd+/hIt/Db+9fx/dQ+fb+ No6m9ueaInEQ1ypdE294/+HV+5/f5+/bhq3hP70d0+Nuzt1iqttk/qCFq7UbHlNzWQW6hpBhjPruvrEl RehOPOfpALVcCqm5KO8KdDZkNFCfX0L8PYGkpr8cYE VcFQEtsJDuPkIxZERDLV4OkNDsPY4XZVf1IERkWALkSyKjKUSshkD6GWYsYPHsYVNvZ9YfosIykROwGB AgUj4+QV1os0AvIhHoUKLoCwy1UI5SuEGyGB6VuECilU7vipInO527llSrVQKwZpjdg5QdBJphRJWYLX 6KMLT3DLH1RRUoVt2+YI5mr5XpOtFlPEBeGmg9QG2U nAGpn3RzXP3JN8JjMIUeSFPUVDK4s7VmWPJoktnhflgtP9ImLVZ6vO9mBAH3BEGySYoiVPTzTGUdPTX4 KTBvDCytCMAxEYXlVKGdBUIuDVh9hVNiXV4FP7IhDPHbLLHPWYStsrRyLl4hJTLEACaHOGktNuKAZ3py WGR8EZVsPMzkN7D1BjwsL4PiRU7TD9JaLQPaFDSNEJ PkeuAbLH6SasXmnZ2mRPdGLLVAHJiPQQhvRcC3o31astBAGKRfRGRiVXimXSUhLBOdYTMdFZAhVVLoFJ ApPUWxMO4ZK0SlWYKtWTRYVWN9v1YgQOJqxghtchyfZk1ftpIjXxl+TcbwVLKkn2FdUElfS1W7qFDwL5 JyG7PfWE5PfEAzQNnvNPHkGZRaYNSeR079jkMtTQ2+ KC4zz1OnGsoqAZURTTOfWCOpNWCcYOV6EqXaUAYmUVTrERTcNgC8TeFfOtLAFSQoQEP9CoHuIHTeVBPh HPIfQOdjTXFjADX4Ojc0ZRRiHRAwWP0gJaTzSMMxCkYsPABeWIHbHPFuwbUKIQEaBJZxYXTaVQF1LNGl YHCkCRpiNZEgNFRdPHU2YKZuWBJbEW9bBeRbRJIgGZ EkAuqyUMBxJZRnoyGFTWViABBqQYP8RqGqGOQlOTDcFLflBVIdICQuMob3BEFoTATaKO1yChHqQZXsNO B8OZlmFLQmRAPqzmMETJOxSFDhDGYzFxUsPCDxBYPeXOxlCYNyPKIhIqGsWSLxZORoYB5gIaNnGTQhNQ P6QPWrROTvWSRzxiVNLEYpRKJkJMo3RFHjCQUhBSDy WZsoILEdXJChXLL0SIHaTMOpVJ4gGcUiHDZlXIDpQZDzIKDnUVQycdHSTPJyCZZpKHU7MRTeSVAiAQLr SDyvJNTuFNZhXkc5YIPyHCPoOQ0cIvIfXPTlIOD1FMCoEVBmYWFaltJUSPZwXCH6IlK5HfApXSYhMKDm LMvhTGVnKYSgIpR9LKKbQLRgYI8nRpNwLNWhWGO9Vw EbYRNeEUVnsmOMNLVzNCRmZIN8EqFjZHVhWWIjPAvdJFVnUUThMHOqXEU1YQW8BWTiAsTaJGbqRVZZZG nKM8EhmiVoNyNFE6oaUe7vVhXvRRHOW3Vms5MoTTYtPPIPOz3+QlH7NMZ3jOMoFku9LqI6EiinEVCLTj == ID Date Data Source [id number] 09/23/2020 05:06:01 PM [facility] Name Value Range Interpretation Code Description Data Maura rce(s) Supporting Document(s) [facility] QZAQDm0cUxYXKmScd8LkGzApDBRfWK0fbqu8D1Q9eOZsE7YkxBUfc2abB0VuN4KcQUXvMGNPIB6UaTFo jb2 [file] Neymar/AT8i15fy2W6+SqU69b5+HYQJ6whB3FAza8RF51A2yB3+Abhzm5USlXAR440OC7DOxa3qBtQwMoiu hUgEtEP5E1wNq5xbeVoSf7oIxOYfF6Tm7J+kMjzir8g6BhsbmnoloXUv10Sp0yLgr9JpgjttI3xGyH5N k8mXc0u14TXbdmj0fwP3O3i9zlk5ixS92XL75lv0UL 8QG79q4VWN1XD/3bNEU1eEg3hyil951HZu2tdPl9Ad29SZSH5499e6ToyU+8hqqccfJi/UaHjYqaXnvP lKXH1035sVn1PEe5fikKYW0Zp4S4np7f0omC9+acnbt02obr8ZAIRWvPzvff3c6p6f101hI9Hmzv8Fpy lUS006NG7FABuXC7cWF0lTzDbYlXuUsZQKutTQboR5 ksXLFuTtBKucn9gSoAV+mmXCzFSQEPp8oWbtukEt3LfOOHzTFJtPD0wNaBMdeTx9jBUn+8vBFYB+tgA2 qNHDjFLRoVSU78caXmSa3Uq5eLuJukxcjKlLoO4EnmlkprOZVvQV7mG2P/xDLD4YHfDRDlkuKA41eUwN oBtTycoEEbDiCaS0mYtbQgJD4PMBwTe2KojWBlCS2J zPT6As/zUI7AtCn6y9GVDJuABsJKzcF3tdPp/VuP3r/DbQGbPz1XvH4mmg/+0ujXW8gtPz1W1WoI/Whh aSsBUazLs7T2JSTV0s2jWZa2C+Lydjo9Zi7ohOjqv6CC12QK18qncrMaTWo8Lj06gymoUcsIr22w0rop lBN7xPN44bvjgCepj22jmxoqqZCns41JkMI1bS2McI aMXNZzR3PrD1qoC8pkwTdC9uYljcmKEhM9UW3HqBZ55F3K7+SPIbtU52GuaBLGJGChHKyqPKPuVN1JuS dWE6Es8cUqEWqZcx8YWQ8qoVBbYpvEXyqRQNeCNivIH6846pTBg495xFHkUb3wiPoYZ/Jpp31i4ZuIus dK9orw4Zf455L3F/Exc43e6RlSqekF9dng3Ix350Z9 G/RuG+trailer [file] hjoIyBMgbKGChjoIyBMgbKGChjoIyBMgbKGChjoIyB UlsNTLauzJaTRlcKEWMUgIIVwVArxHHjSAwq3IeGwgc3yqJzQq3fsQjAVfhcC3NVk0RRDPicOWcWKOqU QWcM+qBZSAGrU5jKKIdVOQntQt1b2TxZNon9Y9VDd47R6RSraQbhUX4EsZnvh/svDf4yWOqP3X+M/cDY X9r3dWlHcKDpecTRZ6QFeTFtuuEJY5S/TQCTVy7w3n NjPzDGwBiDwRgMxmAwBoMxGOwHg/6BfBKBtAk87DwhWevsgWKBR6vUfMwnOA5DBGxjTHSDfp81C20baU 6NBOcfsOY6ZMMk81Fwomsbswkj7/Mc9oKWBngui8Sy6wPid/fTj0Pms9SguGTum0VuVUvuM8fvXjbWeg ah1yDVYDPUqSYcqUOdRGZOGrSIPZHS12bzeiZQQmmJ guAzYjmp8YFcxCNV4wSAtwEueGidE+cUmEeOHKJ5YkG9F3YrLIs4LypthOryCZLjM7vWKLJBgk/OM43g 6ddDePHCTjJfVdQQyceaYYRVY73AFz6eq0rg0eGuv/Sf5RCIUN6mIs/ptlpF1LjeiNSJf1LuOKaLBLEz ZT9CRyVIRrLIxnzRSYlFcvBAO2ydW+jkzSk6Cn9ZQy 4LoccS+eIwZKC8ToBUMH1FfZJs+ZSCsqq6OSfHf0GIqGzapCuQ8NFwXw+cjzlb8ADnwfzf0CJx1km0g8 m2ap/p5kXoVGb1wCrvf0EkxxmVS1B3mh8prgi6EDcKFF3KyEQzr0Q3NU0cW4qnqF4IhaHK5DTeSu7eZ3 CYezd32GhwXx5kKWeuYAVQL+HWoFXyVI03EbIph+JZ HW9XpdCVpNryjjWLGgaoTBzZPmRJeSlGoYXfSKAiMoEuRAg+hmMqx0CNhNtBn6mKUxfyoMSzBZZlMTHV SCfCftCMiBEZRAYRJ+JKCsQMCZIPh1B4OA1EHEnW5kVkS3ypwVxlUbpPScVYe4XXCSxVFGdq6jIgq0Vv mH1qZ2labDqAIEIRILBUkY3THWRSKTyiVP2SwH+oao 7VZscsZO3wq4pIqNFwKWBvIxOKoQQRzWNpYHzYKuENxXhEAsDSfGwhoRNgFQQfMTgUjNzApeUmBvDeRA lGAChEIcYVV3t/8DMvTVOPZXdLF/RRV/RRV+7TiDQi/F/bkjWmDlT4N6Nds7xXF8wl8XjhRHbK53bvMO /WWyg7NDWxuYTJZ2+vPySLM6wpa1FtK/0vuH5dJDiT IML/hcn/hXnWvWvpsWzDifC/cfK/VNlfJt3BbR8BSa2Jmjev6GTY5rAe2MkOnqkZHDgbAwkn+ZDjn5lq C8S0Bdaq3UHEEb7OFLdGv1ygN2R5ujNDlVEDO/vIRc9lsX1r5EEj+jYOZsWAYar6xlpG7uNAouPbFoBI IOJEnMgkMoksIuCVG+YnaumxbEOICBElokQakUaEMR QMBYyQrCnNUn7ufMLvuFZl+TaIgFtvwhgI+zYku0oYJqzmuM7qmVqEsK8tfRIfNmvIVKJpiBtNn1f3PY 2PMTVQTJiUP8B/UMZA2Q/38jn4URrSux9MKfvzo9JPB4CfEj8aImM365vzkbVAuy/GftAYA/TN4UGO9v Dg4Ji657WPUFnFqqwjPBy3hKBU7qBZasLHImfXtaET 64cDEX189kEXqvT+uBdzXg6ZwX1PCn3Lbmxh7DFR9cBe6Ig886AiOPoMB+U7BNcAvK+JOFiNLVscLP4Y luxERStmBnzPm6Nmm1YKQ8QczAelwvD2GXgZ2cSqFWABzb4iLGSurVhRZjuj6LXgg+fUYykqLPVYioBI BRtu5bAX0HSqeMtdN+xRrBjLIDAKJDxehGkYb58cr5 Dg9OAsaNelw1jUje1W5CrdGOTTCzo1d+ulDDTtBQk2JGU5OBt5CuTnn6AUOvjRnsLiSopgPLPNwWjmXe 6LjR1ZRi7Qynqp7AVP0iVl7Ln295WPMPvzPaWrBESI0hUqMRKk5RxidhnvggVAs6Oaaiq9exZc6aQxxh xPETOXN4oEfXb3fcjabUlgssMfnGlbuPcsJLrIivbl Fzgh5pt6mqsN7HI17LcqR+Y471OuM9+o9gpt2CEJxqjKvZHkXn3K38cPnruyfM5SEwp9elTx7krotWyk dceA970ayb7Svl2NDzgJ8ZWZ6k3WZhJlsyvs50+FHssm/GASXCy5SdviYV01HD6DlmbN6DKHq4bfot5k Ra0Ucxz2slBFxlNHaxvJ09bae0wtvVZTOulrrmr0V5 Uei+4riPfGVogTAX/Qr7PGU/bUJXkjxn4tkuzqJyb50qAyBI46vkPumhG55OAve85mgywSGjSJr5PbkB GY3Epfko7ulqwloxzyAHGluQjiQMTBBVltr8ZLcOSBwkunI2ETrAII8uamMfz1E5OtyYEtMsqTWPCxsL EyBsoYKGPQGIPGGDTGoAkRJaJEGpFGpBPpRDIGqww7 LkmweH6IWYBOIDCrOMnJAnSmrvR85llc53cLn4zZBSBBSIc2Ju6LK9DGZRQJN+QTe/GJZTgRjgcdPFLv 6JT4D4BOO3VytqNXLUBfckRJMMGBsJM/fJcsWEBQAXe0gNw+WkZo3hPtdfO7nvSmUYa5v6e6wxvTGiWK mLiArYQf5NQHk9LhsVI+eKzdrsxVCgvCAheAu9Lpwl D4LAw+T3GHCfMI7YxJ/PROpA1ZO8+txpLxeLNnT2ggmUL6cV4ItdNV+k3SYOovEzgIs6H8Btl0dGmFH7 XQmIaeuVfbgC7oukcdMHrRTz1EdGhCKLWthHIO5ES42q92O+3Ii8EQrAjk7SyDFa8c1vV59i64F+2cn9 h1D2NG0Cg08a34g8ZX/EHn/MTO+Qzz8sZ4JpHPRJh2 Qz8U9k12diytJ0iAvDtdn7bVaQKXkEAqdIKoDwKN3vRAk+YkfJxPGHIIjJNyEK5uTRyixItqqIfzfFRV sXbqrB779usVJqDEPhr7YFDzlGCYuIdbsH835bjONoZVZvk3BUYzoQFGwZmudM2fCBRgBXzRODjbAFyC SQnwT9yI0PMIJUOcfJQrWdJUB78bT5SrrHi1GKZ9UP n0PrJnm5KHCX69vng1FXq9TI+X71hIh3Vip0wgshnNRiTlG9Rid5Afw7Cqs5QN1EakOQMpcVQ2N4R0UC w3HyPvl765knjB9RMxLIgIRo0em9ydR6rWpQzSTTPQyOWBak6IiRBzvAmOw6Aul3M+0dalIpk77IdskE trFhniNmuPGLLIf3L0PtJxe1xIH0jlaNHdNWhEViYn N1pHJ3sRJ7+lyKvUYylaK/UQZbAE7CVSrQMTGRBWI+AKnNBcCaczHT22uHYMV9AmQWbpu7vm+TcBgz7m 7VNwbQA2sqArU/XQtAdp6UDOqomBT+IXKDptCs4Ki7DhHY+FAynZc4Qoe2WmgmK6kN5HYq591AtydeuD ALvrjNnzoxOKrdY6fxRGK7iMT7yPiqOII0/MSmqaei u6zo31WOp+NQTzx4bbuWS0EfrAzPtpMh2QomkNfnl32ym0TAlxLOqe7DbD2rRLPrkg9fxCklZs52Lk5G 7j6cgxuDA6JPc+PIQey+t3rOPbg+Lf4BQkquWrfqi9Wz5ZslfSl+ZfcAC4zoG9E5AxbqU5Adsbc4iVJK Oucrvhs9Mx8ZTfh+8W2vytYQcN5TC2hpc4Hl3tCelv FxsePknJUxiUe0OFGLX7YEkAupQsB0+eYN9z1HymbRtV79kYF7eBv3Vjmsfj6AWKoWl5+/blxDvTNuKd nfDQNYulbM82om6KhsKiQebjsBP+KwzopPYIktcFmGpfCzKzKhv9cOGs1qeCEDvzpUsCnTrWwniHff++ xVqWIGY//vPb//ptgO4K05h/7llz222CcGzwn5xjl0 /+5a/e/c8n211+7ou//x1+FfVNz8++/MVn1+u+vZ4Q/QQcmsd38fP++uvP3//0GqT35ga2wx7+U+HvRx uO33/4zVe/e/vNNx8+qn8a7sge3/3iyy8+/7Cci7299ooa3k/36qDwqdgfhaji9y9x/de/+fjlV+/e3r /7+P7Ld7/9/Fc/mfoff66E/JYp5j5U8H1b8Agw4//6 tfWVW561iz8f53/5u4+//PVf+PX9N3z/+puvv37/7s7su42+78he83n/+u/ev/vo0rpgm1y69nGlasc3 49v73/ch6ouonc9+/+rju/yndl277Gj/+/n7Lz6+/fXb53/16vKWS6a6Av8+XfUv/sJZpNr/+c/rqt59 8Xc//qhT1sjEf29Yl16++fXryl+//PD2+W9fN+3zn/ /q3V/O4R4W4o5++NMP//KHP3//3T+//dN/vX3xb9/+8K9//QXIc0j10e16+8PbP/6PW+j3H//q7U8/vL WfrZ/VCjTZIm0N8xf1e/1k1B3rBujl9a7//mf/mtUgHPgR3pL//5gqsa0g88I874d/L3N4Oc2w+pvrbx xoqOOcQ+uTC8VBf+QA75Fb5IbO9BFs7gxflbw5vgze kLK5f/D+u3/57s9/jbD00rkx491+7u8//+Xbhy9++ZtP2to+2ekE+He7SokEPOyhY0rFG1i7+SfxjXIp P0rAN8C/6cG//e6H//ibtz9/+x/ffXL01//oG7zBwF/1FY2TvX/2uuc/OxiVz1c/9ocf/uO7P//vb//4 Fw6/Q/lJPb1fb/896Xx6v/zi3u56H27Q/4c//fDj40 xObX3xPd/xYP/w8Wf/0OP9aHiwWoFyuH26G98sUqTbPT/tDx2QrH2Y75H0bYIJLnl565uv3Xv/ff/Tj2 /f/p/v/v2/PzXPjdP+0w/vvnqjYoNz1hWGwAflQ//jX/3o1/tG/O1333/9b31k1yiK/+Lb//z9t//+6m w/AeXL7sU//PDj/Z+HRdsf/+m/7/sE8f2f/aH5U79L xx/3QEd4F7/6/WfKOMZkmZQVuPGP3/3+3374w+9f1/fZK/6ve9J+8EzE9Bmb/vt/vHrdP3/2xS/fffj4 3a6pN382886v4VI8++tf//rdVx8/fMb/qPtv7///bszU9enouhHca//1uzd5+9O/nU8vo6Xk/bMZYz4c w0X+6145l19rK+Gvi661lJWGG2UsG//lvn7/i3fvX8 Drr/meRDjePv/ii69/89Xrt/fOz5Cb6sx8XI5Xhf2SlxeuslKpxLFlPX0CHB2wf8NiJkB2HSZos9FfJJ wyXOn3uPJqVIniceNxd0NztltbH9Lyu4PvJrPdOMGmXmRuTug2PQRdMbV4wLKpHtYsBPBlQ5RnNDJbYq J9FdWeTGROQA1JIUQyuaBlKtKrJHL+KbPnUG3gbnbd SMLom5BjJXreDLyjIGKrQ0J0bCrtDBGpS5TlsX90PTPoP8XsocF2KGW5LPPbBsOfZHCqiWMaZLEdEAO+ RjJjQY5axsrgWPYlc3JdGLzlMCE4qX5oFVbWLPAPBPiZVHreWjU4y86tmbEGCEEvHTRvHT2HzyInuGmi blSpeXVcORV0FpQxCPIcKPqvIvX7YMENSAJzRWMoNT OsLAWbL3XtpIgqKUkADOYDRDlCFStqPdShl1B1IPRuaqLQWSvJAWuyCVAGJ7zLFFV6KSDvTdZbLR7BfQ YnRQI4EGxSMZHQZSePGKpdKgEtw1S9YCStF5EiFGEypoZdECJPPKhzCzjuOV6omYptisqkA2ChxFUnOR YMIWCeFQXxXYUmWWWmI1Ojj4V9M5JgDHtUDSFLBGpH GBbmQsT4d89regMIFXXkXPNpUF0+GK3fj2SgBd4NWDVsGI6mfmj1CC2SdYQzQF4BNZvdylTwX8fxcvVa TkEoNWRPYU0xL8CneB05IYP+XaFwIV8uzbm6bmDiSmBhNPKcPCReZHAjDPosQICsWDAdKOQuVRM4AXL8 EUPyYoPrADTjIcE5QVJeYHUhCVVsqgJJHGTaQGK9LW H4VeQiZXMdAYGpZCxhXPQoGCU4DEX4ZWAaZTUzQJ9lOwVcBEDaUHBhVNDtXtG9DpUtXjJJNXZsMWHkNH NmMzQtRSChJTYpRRlfONCxDWNpLKv0TXHsTZLsEK2dNbMqOMScPWVqKDQfTSJsFPFkgaZRQTVsRQCrPV Q3AHOmUCIrHYDqMTbeYBLpGPCxTQX3KADeMLEfOL0d GiOfERWpVFP7JrSuGMFzCSOdyqCZHQUgFAClRJT0PFUxVBIfAOCnJWziLGUrMKWcLqX7AETxMZAjBA6b WzDkLIVjCNN4VCFuFYBfTPPzcmXJHCSoTVUaSXk5XzCaTGIvSFAhGPwoUUKjXRYwSDhfEULyKNHpSR5x XfMkCPOvAHVtNDAdABDuUSAnmxFTGUWlUPMoAOL5Zr ZbXINvGSIgGAidRGHbHCPfKZT2PKLzSUBdIS2yXxMwJFRhKxFxWUqaUKBfBLPdrhYYMHCcWFIrYQXwHZ CrXKYnCPYjSQctBLXnYGUyDpB3EKAnNVDyCR5lLjJuZGVpDQI6PDZwLZCiJGInyqSOXMYsTDWhZQEqCA O9GJOsOHFhDUg5idDyoPAoMrr7Tw8PgKwrYQM1Sc8K ngYhKFXdKQCFJh7Ke127TQUxHZOCApe+FqlryNLglSjrTLISJsH2QojNAIDTJ2X= ID Date Data Source [id number] 09/23/2020 04:28:16 PM [facility] Name Value Range Interpretation Code Description Data Maura rce(s) Supporting Document(s) Leukocytes [#/volume] in Blood by Automated count 11.8 10*3/uL 4-10 H [facility] Erythrocytes [#/volume] in Blood by Automated count 3.79 10*6/uL 4.1- 5.3 L [facility] Hemoglobin [Mass/volume] in Blood 10.9 g/dL 11.5-15.5 L [facility] Hematocrit [Volume Fraction] of Blood by Automated count 33.0 % 3 6-45 L [facility] Erythrocyte mean corpuscular volume [Entitic volume] by Auto mated count 87.2 fL 80-96 [facility] Erythrocyte mean corpuscular hemoglobin [Entitic mass] by Automated count 28.8 pg 27-33 [facility] Erythrocyte mean corpuscular hemoglobin concentration [Mass/volume] by [facility] 33.0 [facility] width [Ratio] by Automated count 15.3 % 11.5-14.5 H [facility] Platelets [#/volume] in Blood by Automated count 623 10*3/uL 150-400 H [facility] Differential cell count method - Blood [facility] Neutrophils/100 leukocytes in Blood by Automated count 71 % [facility] Lymphocytes/100 leukocytes in Blood by Automated count 12 % [facility] Monocytes/100 leukocytes in Blood by Automated count 11 % [facility] Neutrophils [#/volume] in Blood by Automated count 8.38 10*3/uL 1.8-7 .0 H [facility] Lymphocytes [#/volume] in Blood by Automated count 1.42 10*3/uL 1.2-4 .0 [facility] Monocytes [#/volume] in Blood by Automated count 1.30 10*3/uL 0-0.8 H [facility] Band form neutrophils/100 leukocytes in Blood by Manual count 3 % [facility] Variant lymphocytes/100 leukocytes in Blood by Manual count 1 % [facility] Myelocytes/100 leukocytes in Blood by Manual count 1 % [facility] Metamyelocytes/100 leukocytes in Blood by Manual count 1 % [facility] Band form neutrophils [#/volume] in Blood by Manual count 0.35 10*3 /uL 0-0.6 [facility] Lymphocytes [#/volume] in Blood 0.12 10*3/uL 0 H [facility] Myelocytes [#/volume] in Blood by Manual count 0.12 10*3/uL 0-0 H [facility] Metamyelocytes [#/volume] in Blood by Manual count 0.12 10*3/uL 0-0 [facility] Anisocytosis [Presence] in Blood by Light microscopy [facility] Polychromasia [Presence] in Blood by Light microscopy [facility] ID Date Data Source [id number] 09/23/2020 03:22:03 PM [facility] Name Value Range Interpretation Code Description Data Maura rce(s) Supporting Document(s) Troponin T.cardiac [Mass/volume] in Serum or Plasma <0.01 [facility] ID Date Data Source [id number] 09/23/2020 04:03:03 PM [facility] Name Value Range Interpretation Code Description Data Maura rce(s) Supporting Document(s) Bicarbonate [Moles/volume] in Serum 28 mmol/L 22-29 [facility] Chloride [Moles/volume] in Serum or Plasma 99 mmol/L 98-107 [facility] Creatinine [Mass/volume] in Serum or Plasma 0.49 mg/dL 0.50-0.90 L [facility] Glucose [Mass/volume] in Serum or Plasma 139 mg/dL 70-140 [facility] Potassium [Moles/volume] in Serum or Plasma 4.0 mmol/L 3.4-5.1 [facility] Sodium [Moles/volume] in Serum or Plasma 135 mmol/L 136-145 L [facility] Urea nitrogen [Mass/volume] in Serum or Plasma 9 mg/dL 6-20 [facility] Anion gap 3 in Serum or Plasma 8 mmol/L 8-15 [facility] Osmolality of Serum or Plasma by calculation 281 mosm/kg 275-300 [facility] Creatinine/Urea nitrogen [Mass Ratio] in Serum or Plasma 17 [facility] Calcium [Mass/volume] in Serum or Plasma 8.6 mg/dL 8.6-10.0 [facility] Glomerular filtration rate/1.73 sq M pre dicted among non-blacks [Volume Rate/Area] in Serum or Plasma by Creatinine-based formula (MDRD) >6 0 [facility] Glomerular filtration rate/1.73 sq M pre dicted among blacks [Volume Rate/Area] in Serum or Plasma by Creatinine-based formula (MDRD) >60 [facility] ID Date Data Source [id number] 09/23/2020 10:16:01 AM [facility] Name Value Range Interpretation Code Description Data Maura rce(s) Supporting Document(s) Consultation [facility] MHUHLr3bAkYGRhKd45/TAGngODPba6HjGTquNUr2HKgbOLMcB0TeXXF3zO9aUSS7DSkHJsLaNgDcDqA6 lbm [file] ID Date Data Source [id number] 09/22/2020 05:11:03 PM [facility] Name Value Range Interpretation Code Description Data Maura e(s) Supporting Document(s) History and Physical [facility] VAMOPv8aHgKLHtRl51/OWJjdIAOkg6EwGVkvPOm8IImpDLRbF5ZpRPS4pA3oNGG5DBrMToSdXiFgFvZ9 lbm [file] CaJa9bGMKQWi4+CNdecKJtgAscMCMPZrG5OLqsTVryLTIOCs3V ID Date Data Source [id number] 09/22/2020 02:20:20 PM EST [facility] Name Value Range Interpretation Code Description Data Maura rce(s) Supporting Document(s) Discharge Summary [facility] QFUHPd7wUmBCGvDq55/OZZmiOCSmf4AqUBtuHMg7WRdzAKEfB0AaGAG9mN5lDHY2NGqFBbZmVlQmYdY8 lbm [file] AgICAgICAgICAgICAgICAgICAgICAgICAgICAgICAgICAgICAgICAgICAgICAgICAgICAgICAgICAgIC AgICAgICAgICAgICAgICAgICAgICAgICAgICAgICAg ICAgICAgICANCiAgICAgICAgICAgICAgICAgICAgICAgICAgICAgICAgICAgICAgICAgICAgICAgICAg ICAgICAgICAgICAgICAgICAgICAgICAgICAgICAgICAgICAgICAgICAgICAgICAgICANCiAgICAgICAg ICAgICAgICAgICAgICAgICAgICAgICAgICAgICAgIC AgICAgICAgICAgICAgICAgICAgICAgICAgICAgICAgICAgICAgICAgICAgICAgICAgICAgICAgICAgIC ANCiAgICAgICAgICAgICAgICAgICAgICAgICAgICAgICAgICAgICAgICAgICAgICAgICAgICAgICAgIC AgICAgICAgICAgICAgICAgICAgICAgICAgICAgICAg ICAgICAgICAgICANCiAgICAgICAgICAgICAgICAgICAgICAgICAgICAgICAgICAgICAgICAgICAgICAg ICAgICAgICAgICAgICAgICAgICAgICAgICAgICAgICAgICAgICAgICAgICAgICAgICAgICANCiAgICAg ICAgICAgICAgICAgICAgICAgICAgICAgICAgICAgIC AgICAgICAgICAgICAgICAgICAgICAgICAgICAgICAgICAgICAgICAgICAgICAgICAgICAgICAgICAgIC AgICANCiAgICAgICAgICAgICAgICAgICAgICAgICAgICAgICAgICAgICAgICAgICAgICAgICAgICAgIC AgICAgICAgICAgICAgICAgICAgICAgICAgICAgICAg ICAgICAgICAgICAgICANCiAgICAgICAgICAgICAgICAgICAgICAgICAgICAgICAgICAgICAgICAgICAg ICAgICAgICAgICAgICAgICAgICAgICAgICAgICAgICAgICAgICAgICAgICAgICAgICAgICAgICANCiAg ICAgICAgICAgICAgICAgICAgICAgICAgICAgICAgIC AgICAgICAgICAgICAgICAgICAgICAgICAgICAgICAgICAgICAgICAgICAgICAgICAgICAgICAgICAgIC AgICAgICANCiAgICAgICAgICAgICAgICAgICAgICAgICAgICAgICAgICAgICAgICAgICAgICAgICAgIC AgICAgICAgICAgICAgICAgICAgICAgICAgICAgICAg ICAgICAgICAgICAgICAgICANCjw/eFOtR1ecnOGyitB7P6htEt7XTb0YQK5mg6AoONEpAMrvixDrMbtK NnXbDMBlCqkZJxz3OGfwRF6PjLVlJ9ZsT9TxJWjbVT1ENPEfROBbfTUuBDXwGREaRoW1HOPtSRkrQH6C kITiUWaeFMTeWRAnPpIyZTWdSCOlUIVxZH8SWFLjP0 67pxOqHa2RUy4MEpZhVU7dpe0IFzzhLJPzBdoSZqn0MUbaYN2JdJFrtJLuXOIeBUYXGsCrO3qpz7OfZa GmOQWIUNbkTP3We8CrfVYoUIc+Jj6HKZ9ro0AzGOcaARFhHY9vam7JQWiHYyPgE8SwuFedBURba1IgUR BhNNMKeL1pTBS9QIC2SNSctNdkyEQSBFPmVQHbD4Zd DXYzNU3MUCW8HGOrNV0yPFQhFMV4OzHcBYBTMO7TAMSbWUBbyRAoGOWcLVBIIX4WSYycKJN4XTUwvcGs gQTwMZbpEP9FHZBkkhHnCfjmJPPCPGw+Mg2PWW8kc9TgFAgkENKgZQ3fgm0ZOIjRMrDcB5M4cWWdI8R0 BTycVe3ZXPQsYAQpXythQTRHVDndNG2YFQ8yxzN2PW 8KyAXqUYHjBOEhkWYiTAu8K71njUVfLHfeTM2PKSY+Nadya+Bc1VYKDgCLHbEXVnXiJeTGKUCbNxL1KlF5 PZy3SrC5NiJQ70lZsxhyXcUIrmTS6AOD4aHNZyRYIXWX5CgJRxnN0mtpOfHOBnWLKBQkBdF57esMEpQZ DuRXC4TZVoKf6WTGPwR5FezzRlxIrxjwHmJHDnUNGD IO2XDOrocmRybIVmcIpqDJ61lSmjJF2REa8YLuBvUP8tkg1YjUVwWh3ERCDrAf1LDALoYDMrJYSxLVF7 XGZtNbWoEUywATTfFTEgARJ5PFEaZRXgUK7RBaRkNNOqPhteYNcgFTRjIVYgzh5LOLNzSWDtHUM2UXRh QFOwEHHmJCssPNRjJKTyBHO0IMBfPUQdPH0YFtZnCR XnYPYjDCgfGSUeCWCcon5ELDBsFRBjYvY0JXHwGUKqAWOzHQfkUUIvRVU7BFT2NFLqKQMgFP3RNyMvMF LhQZpxRRdgSSHpXFQtvn8VGZVgNVUoCJK0YuKyQANiXYJdCGpjKXFpILV1ZgDtWFGfDGUlHP6YMdRySD DhNWE8XnDkABBgQTOrqs7XNUMuASTiAUq4GTIdHUCn METvEJfwHHLdPBUwQIZgPQVpUUKeLE3LLtNbBNBpBQWpUIYlCXFsNDVqde6YOYFmEAEeWsWbJxStEYFb XQWtVNfsDYAlDKIsNickSPMvXUFzIY5PSoEpPNRbWSIhSVskVBQlXERpiv4FLPMqUNEcQxX9QENlSFJc CXJbKAjaFSGpKBUtYhK0EUAuABQfFU4IZuWjBYFwXR A2VMztXYEkTJNrmk0FFCEbHFWwHUy7JmCiIXWlBTBzKTgaTCBoIUL3RRk7QDJtCEZhYE1GPwLbHNFePy O7LbVjHCJjCNGwps0NWJBfBWHrItx3YgHmPXAnCPJjQYfcFOWmUUD9IHrlWQBkBDBrGE3LOgIxWLWuPt sjFbAlOGZpHUAecd8TRHLoJJCnMqC4ZrUeCZRzUWTy QAseSEXiLGI8LRF8BFLxVTPgDW7CPwGdABZjRyltDRkzXKLaUQIymn9UIOGkVUYhRXKfKEGiIQLhODPg XLsxMHOeNPF9LGr4OXMhOEXdGX2KQxZbRMpmAMYXSha8OOcaR6h5IKYzTs1QC2Lry9QkOlLpBPVTJBnk LA7lryXcOLQpBh6QX7sVRbvzVYN9SAAtCeW4IYTsQg R9RsQ6ROCrTaDzDZT1EEJsFN2bUDHqZtC2Y9JoRJkdYFMuOLqbVzbrYXNrEqS1IQxtHDQ8LhYsBQ2KLn 5RKuB6NFX7fWRfOl4PEca4RnKKQoQnMP0SOPq= ID Date Data Source [id number] 09/22/2020 06:13:51 AM [facility] Name Value Range Interpretation Code Description Data Maura rce(s) Supporting Document(s) Bicarbonate [Moles/volume] in Serum 27 mmol/L 22-29 [facility] Chloride [Moles/volume] in Serum or Plasma 100 mmol/L 98-107 [facility] Creatinine [Mass/volume] in Serum or Plasma 0.46 mg/dL 0.50-0.90 L [facility] Glucose [Mass/volume] in Serum or Plasma 93 mg/dL 70-140 [facility] Potassium [Moles/volume] in Serum or Plasma 4.3 mmol/L 3.4-5.1 [facility] Hemolyzed Sodium [Moles/volume] in Serum or Plasma 135 mmol/L 136-145 L [facility] Urea nitrogen [Mass/volume] in Serum or Plasma 7 mg/dL 6-20 [facility] Anion gap 3 in Serum or Plasma 7 mmol/L 8-15 L [facility] Osmolality of Serum or Plasma by calculation 277 mosm/kg 275-300 [facility] Creatinine/Urea nitrogen [Mass Ratio] in Serum or Plasma 15 [facility] Calcium [Mass/volume] in Serum or Plasma 8.5 mg/dL 8.6-10.0 L [facility] Glomerular filtration rate/1.73 sq M pre dicted among non-blacks [Volume Rate/Area] in Serum or Plasma by Creatinine-based formula (MDRD) >6 0 [facility] Glomerular filtration rate/1.73 sq M pre dicted among blacks [Volume Rate/Area] in Serum or Plasma by Creatinine-based formula (MDRD) >60 [facility] ID Date Data Source [id number] 09/22/2020 06:15:56 AM [facility] Name Value Range Interpretation Code Description Data Maura rce(s) Supporting Document(s) Leukocytes [#/volume] in Blood by Automated count 11.2 10*3/uL 4-10 H [facility] Erythrocytes [#/volume] in Blood by Automated count 3.60 10*6/uL 4.1- 5.3 L [facility] Hemoglobin [Mass/volume] in Blood 10.4 g/dL 11.5-15.5 L [facility] Hematocrit [Volume Fraction] of Blood by Automated count 31.6 % 3 6-45 L [facility] Erythrocyte mean corpuscular volume [Entitic volume] by Auto mated count 87.8 fL 80-96 [facility] Erythrocyte mean corpuscular hemoglobin [Entitic mass] by Automated count 28.8 pg 27-33 [facility] Erythrocyte mean corpuscular hemoglobin concentration [Mass/volume] by Automated count 32.8 g/dL 32.0-36.0 [facility] al Erythrocyte distribution width [Ratio] by Automated count 15.1 % 11.5-14.5 H [facility] Platelets [#/volume] in Blood by Automated count 463 10*3/uL 150-400 H [facility] ID Date Data Source [id number] 09/21/2020 08:34:[address] [facility] [address] ABDOMEN PELVIS WITH CONTRAST [id number] AL RESULTInterpreted by:Josef Celestin, MDPROCEDURE INFORMATION: Exam: CT Abdomen And Pelvis With Contrast Exam date and time: 09/21/2020 5:08 PM Age: 55 years old Clinical indication: Diverticulitis of intestine, part unspecified, without perforation or abscess without bleeding; Generalized abdominal pain; Contact with and (suspected) exposure to covid-19; Personal history of nicotine dependence; Condition or disease; Prior surgery; Surgery date: 3-7 days post-operative; Additional info: Examine for abscess, persistent leukocytosis after hinchey 4 diverticulitis TECHNIQUE: Imaging protocol: Computed tomography of the abdomen and pelvis with contrast. Radiation optimization: All CT scans at this facility use at least one of these dose optimization techniques: automated exposure control; mA and/or kV adjustment per patient size (includes targeted exams where dose is matched to clinical indication); or iterative reconstruction. Contrast material: OMNI 300; Contrast volume: 100 ml; Contrast route: INTRAVENOUS (IV); Other contrast: Oral, omni 240, 900; COMPARISON: CT ABDOMEN PELVIS WITH CONTRAST [id number] 09/15/2020 3:45 PM FINDINGS: Tubes, catheters and devices: None noted. Lungs: Left lower lobe infiltrate. Parapneumonic left effusion. Heart: No significant coronary calcifications. No cardiomegaly. No significant pericardial effusion. Liver: Normal. No mass. Gallbladder and bile ducts: Cholecystectomy. No ductal dilation. Pancreas: Normal. No ductal dilation. Spleen: Minimal left subphrenic fluid, No splenomegaly. Adrenal glands: Normal. No mass. Kidneys and ureters: Normal. No hydronephrosis. Stomach and bowel: Left lower quadrant colostomy. Improving left upper quadrant inflammatory changes. Resolved midline hernia. No obstruction. No mucosal thickening. Appendix: No evidence of appendicitis. Intraperitoneal space: Surgical drain left lower quadrant. No free air. Minimal residual left subphrenic fluid collection. Retroperitoneal space: No significant retroperitoneal inflammatory changes are noted. Vasculature: Unremarkable. No abdominal aortic aneurysm. Lymph nodes: Unremarkable. No enlarged lymph nodes. Urinary bladder: Unremarkable as visualized. Reproductive: Unremarkable as visualized. Bones/joints: Unremarkable. No acute fracture. Soft tissues: Unremarkable. IMPRESSION: 1. Left lower quadrant colostomy. 2. Repair of midline hernia. 3. Improving inflammatory changes in the left upper quadrant. 4. Left lower lobe infiltrate with left pleural effusion. 5. Minimal left subphrenic fluid collection could be residual abscess. THIS DOCUMENT HAS BEEN EL ECTRONICALLY SIGNED BY JOSEF CELESTIN MDThis document has been electronically signed by Josef Celestin MD on 09/21/2020 8:34 PM Name Value Range Interpretation Code Description Data Maura rce(s) Supporting Document(s) ID Date Data Source [id number] 09/21/2020 08:55:00 AM [facility] Name Value Range Interpretation Code Description Data Maura rce(s) Supporting Document(s) SARS-CoV-2 RNA 2019 nCoV Real-Time RT-PCR: NOT DETECTED [facility] This lab was ordered by [facility] and reported by [facility]. ID Date Data Source [id number] 09/21/2020 11:42:43 AM EST [facility] Name Value Range Interpretation Code Description Data Maura rce(s) Supporting Document(s) Specimen source [Identifier] of Unspecified specimen [facility] SARS-CoV-2 RNA 2019 nCoV Real-Time RT-PCR: NOT DETECTED [facility] Assay Performed [facility] Patients first test for [facility] Patient employed in healthcare setting [facility] Patient has symptoms related to [facility] When did you start to experience these symptoms [Date and time] [Phen X] [facility] Patient was hospitalized because of this condition [facility] patient was admitted to ICU for condition [facility] Patient resides in a congregate care setting [facility] status [facility] ID Date Data Source [id number] 09/21/2020 06:28:33 AM [facility] Name Value Range Interpretation Code Description Data Maura rce(s) Supporting Document(s) Bicarbonate [Moles/volume] in Serum 29 mmol/L 22-29 [facility] Chloride [Moles/volume] in Serum or Plasma 103 mmol/L 98-107 [facility] Creatinine [Mass/volume] in Serum or Plasma 0.51 mg/dL 0.50-0.90 [facility] Glucose [Mass/volume] in Serum or Plasma 103 mg/dL 70-140 [facility] Potassium [Moles/volume] in Serum or Plasma 4.4 mmol/L 3.4-5.1 [facility] Sodium [Moles/volume] in Serum or Plasma 138 mmol/L 136-145 [facility] Urea nitrogen [Mass/volume] in Serum or Plasma 10 mg/dL 6-20 [facility] Anion gap 3 in Serum or Plasma 6 mmol/L 8-15 L [facility] Osmolality of Serum or Plasma by calculation 285 mosm/kg 275-300 [facility] Creatinine/Urea nitrogen [Mass Ratio] in Serum or Plasma 19 [facility] Calcium [Mass/volume] in Serum or Plasma 8.2 mg/dL 8.6-10.0 L [facility] Glomerular filtration rate/1.73 sq M pre dicted among non-blacks [Volume Rate/Area] in Serum or Plasma by Creatinine-based formula (MDRD) >6 0 [facility] Glomerular filtration rate/1.73 sq M pre dicted among blacks [Volume Rate/Area] in Serum or Plasma by Creatinine-based formula (MDRD) >60 [facility] ID Date Data Source [id number] 09/21/2020 06:42:25 AM [facility] Name Value Range Interpretation Code Description Data Maura rce(s) Supporting Document(s) Leukocytes [#/volume] in Blood by Automated count 12.9 10*3/uL 4-10 H [facility] Erythrocytes [#/volume] in Blood by Automated count 3.48 10*6/uL 4.1- 5.3 L [facility] Hemoglobin [Mass/volume] in Blood 10.0 g/dL 11.5-15.5 L [facility] Hematocrit [Volume Fraction] of Blood by Automated count 30.5 % 3 6-45 L [facility] Erythrocyte mean corpuscular volume [Entitic volume] by Auto mated count 87.7 fL 80-96 [facility] Erythrocyte mean corpuscular hemoglobin [Entitic mass] by Automated count 28.6 pg 27-33 [facility] Erythrocyte mean corpuscular hemoglobin concentration [Mass/volume] by Automated count 32.6 g/dL 32.0-36.0 [facility] al Erythrocyte distribution width [Ratio] by Automated count 14.9 % 11.5-14.5 H [facility] Platelets [#/volume] in Blood by Automated count 437 10*3/uL 150-400 [facility] ID Date Data Source [id number] 09/20/2020 04:51:20 AM [facility] Name Value Range Interpretation Code Description Data Maura rce(s) Supporting Document(s) Leukocytes [#/volume] in Blood by Automated count 12.9 10*3/uL 4-10 H [facility] Erythrocytes [#/volume] in Blood by Automated count 3.66 10*6/uL 4.1- 5.3 L [facility] Hemoglobin [Mass/volume] in Blood 10.3 g/dL 11.5-15.5 [facility] Hematocrit [Volume Fraction] of Blood by Automated count 32.3 % 3 6-45 [facility] Erythrocyte mean corpuscular volume [Entitic volume] by Auto mated count 88.1 fL 80-96 [facility] Erythrocyte mean corpuscular hemoglobin [Entitic mass] by Automated count 28.2 pg 27-33 [facility] Erythrocyte mean corpuscular hemoglobin concentration [Mass/volume] by Automated count 32.1 g/dL 32.0-36.0 [facility] al Erythrocyte distribution width [Ratio] by Automated count 14.7 % 11.5-14.5 H [facility] Platelets [#/volume] in Blood by Automated count 407 10*3/uL 150-400 [facility] ID Date Data Source [id number] 09/20/2020 05:13:05 AM [facility] Name Value Range Interpretation Code Description Data Maura rce(s) Supporting Document(s) Bicarbonate [Moles/volume] in Serum 30 mmol/L 22-29 H [facility] Chloride [Moles/volume] in Serum or Plasma 103 mmol/L 98-107 [facility] Creatinine [Mass/volume] in Serum or Plasma 0.53 mg/dL 0.50-0.90 [facility] Glucose [Mass/volume] in Serum or Plasma 119 mg/dL 70-140 [facility] Potassium [Moles/volume] in Serum or Plasma 3.9 mmol/L 3.4-5.1 [facility] Sodium [Moles/volume] in Serum or Plasma 139 mmol/L 136-145 [facility] Urea nitrogen [Mass/volume] in Serum or Plasma 10 mg/dL 6-20 [facility] Anion gap 3 in Serum or Plasma 6 mmol/L 8-15 L [facility] Osmolality of Serum or Plasma by calculation 288 mosm/kg 275-300 [facility] Creatinine/Urea nitrogen [Mass Ratio] in Serum or Plasma 20 [facility] Calcium [Mass/volume] in Serum or Plasma 8.1 mg/dL 8.6-10.0 [facility] Glomerular filtration rate/1.73 sq M pre dicted among non-blacks [Volume Rate/Area] in Serum or Plasma by Creatinine-based formula (MDRD) >6 0 [facility] Glomerular filtration rate/1.73 sq M pre dicted among blacks [Volume Rate/Area] in Serum or Plasma by Creatinine-based formula (MDRD) >60 [facility] ID Date Data Source [id number] 09/19/2020 05:10:23 AM [facility] Name Value Range Interpretation Code Description Data Maura rce(s) Supporting Document(s) Leukocytes [#/volume] in Blood by Automated count 11.9 10*3/uL 4-10 H [facility] Erythrocytes [#/volume] in Blood by Automated count 3.75 10*6/uL 4.1- 5.3 L [facility] Hemoglobin [Mass/volume] in Blood 10.6 g/dL 11.5-15.5 [facility] Hematocrit [Volume Fraction] of Blood by Automated count 32.8 % 3 6-45 L [facility] Erythrocyte mean corpuscular volume [Entitic volume] by Auto mated count 87.3 fL 80-96 [facility] Erythrocyte mean corpuscular hemoglobin [Entitic mass] by Automated count 28.2 pg 27-33 [facility] Erythrocyte mean corpuscular hemoglobin concentration [Mass/volume] by Automated count 32.2 g/dL 32.0-36.0 [facility] al Erythrocyte distribution width [Ratio] by Automated count 15.0 % 11.5-14.5 H [facility] Platelets [#/volume] in Blood by Automated count 363 10*3/uL 150-400 [facility] ID Date Data Source [id number] 09/19/2020 05:24:57 AM [facility] Name Value Range Interpretation Code Description Data Maura rce(s) Supporting Document(s) Bicarbonate [Moles/volume] in Serum 31 mmol/L 22-29 H [facility] Chloride [Moles/volume] in Serum or Plasma 101 mmol/L 98-107 [facility] Creatinine [Mass/volume] in Serum or Plasma 0.55 mg/dL 0.50-0.90 [facility] Glucose [Mass/volume] in Serum or Plasma 102 mg/dL 70-140 [facility] Potassium [Moles/volume] in Serum or Plasma 3.3 mmol/L 3.4-5.1 L [facility] Sodium [Moles/volume] in Serum or Plasma 140 mmol/L 136-145 [facility] Urea nitrogen [Mass/volume] in Serum or Plasma 13 mg/dL 6-20 [facility] Anion gap 3 in Serum or Plasma 8 mmol/L 8-15 [facility] Osmolality of Serum or Plasma by calculation 290 mosm/kg 275-300 [facility] Creatinine/Urea nitrogen [Mass Ratio] in Serum or Plasma 24 [facility] Calcium [Mass/volume] in Serum or Plasma 7.5 mg/dL 8.6-10.0 L [facility] Glomerular filtration rate/1.73 sq M pre dicted among non-blacks [Volume Rate/Area] in Serum or Plasma by Creatinine-based formula (MDRD) >6 0 [facility] Glomerular filtration rate/1.73 sq M pre dicted among blacks [Volume Rate/Area] in Serum or Plasma by Creatinine-based formula (MDRD) >60 [facility] ID Date Data Source [id number] 09/18/2020 11:59:27 AM [facility] Name Value Range Interpretation Code Description Data Maura rce(s) Supporting Document(s) Consultation [facility] [id number] lbm [file] [id number] ID Date Data Source [id number] 09/18/2020 07:28:57 AM [facility] Name Value Range Interpretation Code Description Data Maura rce(s) Supporting Document(s) Bicarbonate [Moles/volume] in Serum 28 mmol/L 22-29 [facility] Chloride [Moles/volume] in Serum or Plasma 103 mmol/L 98-107 [facility] Creatinine [Mass/volume] in Serum or Plasma 0.51 mg/dL 0.50-0.90 [facility] Glucose [Mass/volume] in Serum or Plasma 81 mg/dL 70-140 [facility] Potassium [Moles/volume] in Serum or Plasma 4.1 mmol/L 3.4-5.1 [facility] Sodium [Moles/volume] in Serum or Plasma 140 mmol/L 136-145 [facility] Urea nitrogen [Mass/volume] in Serum or Plasma 17 mg/dL 6-20 [facility] Anion gap 3 in Serum or Plasma 9 mmol/L 8-15 [facility] Osmolality of Serum or Plasma by calculation 289 mosm/kg 275-300 [facility] Creatinine/Urea nitrogen [Mass Ratio] in Serum or Plasma 32 [facility] Calcium [Mass/volume] in Serum or Plasma 8.4 mg/dL 8.6-10.0 L [facility] Glomerular filtration rate/1.73 sq M pre dicted among non-blacks [Volume Rate/Area] in Serum or Plasma by Creatinine-based formula (MDRD) >6 0 [facility] Glomerular filtration rate/1.73 sq M pre dicted among blacks [Volume Rate/Area] in Serum or Plasma by Creatinine-based formula (MDRD) >60 [facility] ID Date Data Source [id number] 09/18/2020 07:28:57 AM [facility] Value Range Interpretation Code Description Data Maura rce(s) Supporting Document(s) Magnesium [Mass/volume] in Serum or Plasma 2.0 mg/dL 1.6-2.6 [facility] ID Date Data Source [id number] 09/18/2020 07:28:57 AM [facility] Value Range Interpretation Code Description Data Maura rce(s) Supporting Document(s) Phosphate [Mass/volume] in Serum or Plasma 2.4 mg/dL 2.5-4.5 L [facility] ID Date Data Source [id number] 09/18/2020 10:54:58 AM [facility] Name Value Range Interpretation Code Description Data Maura rce(s) Supporting Document(s) Leukocytes [#/volume] in Blood by Automated count 13.5 10*3/uL 4-10 H [facility] Erythrocytes [#/volume] in Blood by Automated count 3.66 10*6/uL 4.1- 5.3 L [facility] Hemoglobin [Mass/volume] in Blood 10.6 g/dL 11.5-15.5 [facility] Hematocrit [Volume Fraction] of Blood by Automated count 32.1 % 3 6-45 L [facility] Erythrocyte mean corpuscular volume [Entitic volume] by Auto mated count 87.9 fL 80-96 [facility] Erythrocyte mean corpuscular hemoglobin [Entitic mass] by Automated count 29.0 pg 27-33 [facility] Erythrocyte mean corpuscular hemoglobin concentration [Mass/volume] by Automated count 33.0 g/dL 32.0-36.0 [facility] width [Ratio] by Automated count 15.0 % 11.5-14.5 H [facility] Platelets [#/volume] in Blood by Automated count 363 10*3/uL 150-400 [facility] Differential cell count method - Blood [facility] Neutrophils/100 leukocytes in Blood by Automated count 93 % [facility] Lymphocytes/100 leukocytes in Blood by Automated count 4 % [facility] Monocytes/100 leukocytes in Blood by Automated count 2 % [facility] Eosinophils/100 leukocytes in Blood by Automated count 1 % [facility] Neutrophils [#/volume] in Blood by Automated count 12.56 10*3/uL 1.8- 7.0 H [facility] Lymphocytes [#/volume] in Blood by Automated count 0.54 10*3/uL 1.2-4 .0 [facility] Monocytes [#/volume] in Blood by Automated count 0.27 10*3/uL 0-0.8 [facility] Eosinophils [#/volume] in Blood by Automated count 0.14 10*3/uL 0-0.5 [facility] ID Date Data Source [id number] 09/17/2020 01:16:26 PM [facility] Name Value Range Interpretation Code Description Data Maura rce(s) Supporting Document(s) Potassium [Moles/volume] in Serum or Plasma 3.6 mmol/L 3.4-5.1 [facility] ID Date Data Source [id number] 09/17/2020 11:55:53 AM EST [facility] Name Value Range Interpretation Code Description Data Maura rce(s) Supporting Document(s) Consultation [facility] [id number] lbm [file] ICAgICAgICAgICAgICAgICAgICAgICAgICAgICAgICAgICAgICAgICAgICAgICAgICAgICAgICAgICAg ICAgICAgICAgICAgICAgICANCiAgICAgICAgICAgICAgICAgICAgICAgICAgICAgICAgICAgICAgICAg ICAgICAgICAgICAgICAgICAgICAgICAgICAgICAgIC AgICAgICAgICAgICAgICAgICAgICAgICAgICANCiAgICAgICAgICAgICAgICAgICAgICAgICAgICAgIC AgICAgICAgICAgICAgICAgICAgICAgICAgICAgICAgICAgICAgICAgICAgICAgICAgICAgICAgICAgIC AgICAgICAgICANCiAgICAgICAgICAgICAgICAgICAg ICAgICAgICAgICAgICAgICAgICAgICAgICAgICAgICAgICAgICAgICAgICAgICAgICAgICAgICAgICAg ICAgICAgICAgICAgICAgICAgICANCiAgICAgICAgICAgICAgICAgICAgICAgICAgICAgICAgICAgICAg ICAgICAgICAgICAgICAgICAgICAgICAgICAgICAgIC AgICAgICAgICAgICAgICAgICAgICAgICAgICAgICANCiAgICAgICAgICAgICAgICAgICAgICAgICAgIC AgICAgICAgICAgICAgICAgICAgICAgICAgICAgICAgICAgICAgICAgICAgICAgICAgICAgICAgICAgIC AgICAgICAgICAgICANCiAgICAgICAgICAgICAgICAg ICAgICAgICAgICAgICAgICAgICAgICAgICAgICAgICAgICAgICAgICAgICAgICAgICAgICAgICAgICAg ICAgICAgICAgICAgICAgICAgICAgICANCiAgICAgICAgICAgICAgICAgICAgICAgICAgICAgICAgICAg ICAgICAgICAgICAgICAgICAgICAgICAgICAgICAgIC AgICAgICAgICAgICAgICAgICAgICAgICAgICAgICAgICANCiAgICAgICAgICAgICAgICAgICAgICAgIC AgICAgICAgICAgICAgICAgICAgICAgICAgICAgICAgICAgICAgICAgICAgICAgICAgICAgICAgICAgIC AgICAgICAgICAgICAgICANCiAgICAgICAgICAgICAg ICAgICAgICAgICAgICAgICAgICAgICAgICAgICAgICAgICAgICAgICAgICAgICAgICAgICAgICAgICAg ICAgICAgICAgICAgICAgICAgICAgICAgICANCjw/gBMvX0splEWmctP1G5cqJq8RDy7UQG0ho2JnGKKu CBsobqBcDrmTJgDzRDVyWgwXBwc0URurFT0WnGVnO7 WfD6TnIWkiOE6VNEKrTMJceAImUZOyODCpXnA0FUXgNDhsQN3EuEOiJBspMWTvUVEwDfFyFRXlSDGkWS AySAYkNPSCIADeKGWhZyYqIYHaVIWrTPbjZFIGMSU3EOVtFfPoEUexPI9Ik6VgdLB0XEu+Uv0WWQ8sc3 RsFZumMiSyZB1bve0YNTkPTiDvS4VybwE8LSO5GZNx Hc7XBYNfNOUetDMjRaVkCAULQhRvL4KnoG51DGCAZq6+WCcclqChGadYZbW9VPQxk4MiHYa1VJ4OBRQu TUi1dEBfL05gq2EymDPzKglhN8kzya7ewqGTHEm5wsvzaofgKCOWJDS9DUZwZo5pBAIbNBYuJyX5SWHQ VM3FAOJuHKVazTYeNSQkQOQFNT8ZEOanABJ1TWRxmk RupKPiHDalQF1TFGWttmZiYrLaYZOUFIx+Es6HOA1uo5OhSBlgEZRbTI5uoo0BWYjRIlVlO3D1wGIsK1 J6GUuoPh5ELFYnIIRxAdNfUZGVRIdnTE1IDM3hekV5OK4NeKXyCFPjDAUuqZMqWQn4D41ivOCnKQnbAA 0KICA+Nadya+Xt9WDDSuZKQfPMNcPnMkQLKRYcSzO8Vi F5VZu9CkD4BuCV34lSfzneKtCZgyGK4OFQ2vPTZvQZQCZT5WwFXfuK5deaMeWvTmIAZBHvDrT93vzNAj IPTdUCC7VBUxUx6UHLYsN3HsbaEmtNwnjxSlACUlMQQKRZ7KKGxztkAlnIMpxBciGC61pXnmPQ3AKq7T NvQlPH0iqe8ScZDdOd7XXQVkKF9GLHSxLPUuYKZjTL N5OLHrRoJpIWduLSUbGIDaPSD3ASZqZBTiWT4TXiCiYQGzHVUmWtMbMYQsMIFboj5HWFMiXQF9ViF0YY QzVXWsCBWwBCizOQJrJVMfTNF7CMYbFRCzLB4SUoYiGJKoPEZ7IDXiWQPjWMYelo1GBAUdORPwIHQgBC QsBVPzYDTzACvnFTCiUJM1XDV0XUXbMROcPH0CRtFx WDUqBJt2UaBsGSOyBAJpyp8RKAEmTZEwEsG4TEBiDOFqVTAyCAuxCKLtRWZaEACeNDDhLOUgNK9CAtNq UVPpCAX8OdQcRHCiDVByim4MYSDpPHThOjkvEwFvJNOoZTObKGgsUNUtLTRwIVDmBYAdTRWiPN8YMnDh XNGtOxK8OZahBVLlDWXklq1WVALpZMVpNzlnNNAmJN DlOGXqWCxxWPNtQXG6IFT1TGJnKOTtWA0FJmVnDHTlLgf0LToxFEIgJHLumx0JNTMqUKHyAke3DKZtSZ HfUNFcWQavRKCwLUY4HRB8BIDpTUJnZB3ABlKeRLEvMlgbPFXiNGNdGDRupw3GXUYfZUGeVMCuUdPwCL QvVGPgRLzyVEMlWWHuCJa5OBUnPXOrCA8BQqRhWJXi FnEbYCOcQJWwPHWroe3XTHNuAIBkCXG2IFMvMTYtZLGmHUxbOIMzNYDbLANiUEXbVMSsWC2YZbGaXEDx EkV6ZfMsGLGvOQXore7VQNUoQZL0KuRmUcJwIPLzQWQoXWtlPHJiBFLwZMN5TUBcSJAiFN1FMkDzFWHi WFO1USKkPDDrGPIjjd7CAHKvYZC1Uib0JiEgZQBrCC LjCCjyEYJdFEA3ZPG3WGIkAJVlXZ9RFwSiARHsJPC7NeKqJDLpMMOdfq1RBGNdGPY3VZO0RZAgDYVvTS MbNLdvEQQwVPO7LsU7NQFtJJGgIH9LBqGoCLRgBKF1UHBpRERqJFDwkj4PTAJtBUS3PkV9RSCePFJyVO EeEXfqDMXmYRX5QsBiJHHuDCGhFC4GElXxQZBnQYe5 HFDaVNCjTRRmhz4CeFUfuUexqr9DIGwYPj1PwRlnSZP6XEegCk6etJClDUSbCTLAEe7YvbKyFEMwKSHD DDxuOKSwUMIoQSR2ILJ2G4Y7UwUdVWOoMwScZPDhLLKzZUI4HCKaPfY1XkAbCUopMkC9ZKWnHgIbTlW2 IDWqC2VtYdUzNjofQQY+OK4vUMz+Yr3Gf9YfidD3hrSwMFb8KfunBP1ZGCAOL9MMKc== ID Date Data Source [id number] 09/17/2020 04:51:23 AM [facility] Name Value Range Interpretation Code Description Data Maura rce(s) Supporting Document(s) Leukocytes [#/volume] in Blood by Automated count 12.7 10*3/uL 4-10 H [facility] Erythrocytes [#/volume] in Blood by Automated count 3.69 10*6/uL 4.1- 5.3 L [facility] Hemoglobin [Mass/volume] in Blood 10.6 g/dL 11.5-15.5 L [facility] Hematocrit [Volume Fraction] of Blood by Automated count 32.3 % 3 6-45 L [facility] Erythrocyte mean corpuscular volume [Entitic volume] by Auto mated count 87.5 fL 80-96 [facility] Erythrocyte mean corpuscular hemoglobin [Entitic mass] by Automated count 28.7 pg 27-33 [facility] Erythrocyte mean corpuscular hemoglobin concentration [Mass/volume] by Automated count 32.8 g/dL 32.0-36.[facility] width [Ratio] by Automated count 14.7 % 11.5-14.5 H [facility] Platelets [#/volume] in Blood by Automated count 324 10*3/uL 150-400 [facility] Differential cell count method - Blood [facility] Neutrophils/100 leukocytes in Blood by Automated count 91 % [facility] Lymphocytes/100 leukocytes in Blood by Automated count 4 % [facility] Monocytes/100 leukocytes in Blood by Automated count 5 % [facility] Eosinophils/100 leukocytes in Blood by Automated count 0 % [facility] Basophils/100 leukocytes in Blood by Automated count 0 % [facility] Neutrophils [#/volume] in Blood by Automated count 11.55 10*3/uL 1.8- 7.0 H [facility] Lymphocytes [#/volume] in Blood by Automated count 0.49 10*3/uL 1.2-4 .0 L [facility] Monocytes [#/volume] in Blood by Automated count 0.62 10*3/uL 0-0.8 [facility] Eosinophils [#/volume] in Blood by Automated count 0.00 10*3/uL 0-0.5 [facility] Basophils [#/volume] in Blood by Automated count 0.01 10*3/uL 0-0.2 [facility] Nucleated erythrocytes/100 leukocytes [Ratio] in Blood by Automated count 0 /100{WBCs} 0-0 [facility] ID Date Data Source [id number] 09/17/2020 05:02:34 AM EST [facility] Name Value Range Interpretation Code Description Data Maura rce(s) Supporting Document(s) Bicarbonate [Moles/volume] in Serum 28 mmol/L 22-29 [facility] Chloride [Moles/volume] in Serum or Plasma 101 mmol/L 98-107 [facility] Creatinine [Mass/volume] in Serum or Plasma 0.62 mg/dL 0.50-0.90 [facility] Glucose [Mass/volume] in Serum or Plasma 117 mg/dL 70-140 [facility] Potassium [Moles/volume] in Serum or Plasma 3.2 mmol/L 3.4-5.1 L [facility] Sodium [Moles/volume] in Serum or Plasma 138 mmol/L 136-145 [facility] Urea nitrogen [Mass/volume] in Serum or Plasma 21 mg/dL 6-20 H [facility] Anion gap 3 in Serum or Plasma 9 mmol/L 8-15 [facility] Osmolality of Serum or Plasma by calculation 290 mosm/kg 275-300 [facility] Creatinine/Urea nitrogen [Mass Ratio] in Serum or Plasma 34 [facility] Calcium [Mass/volume] in Serum or Plasma 8.7 mg/dL 8.6-10.0 [facility] Glomerular filtration rate/1.73 sq M pre dicted among non-blacks [Volume Rate/Area] in Serum or Plasma by Creatinine-based formula (MDRD) >6 0 [facility] Glomerular filtration rate/1.73 sq M pre dicted among blacks [Volume Rate/Area] in Serum or Plasma by Creatinine-based formula (MDRD) >60 [facility] ID Date Data Source [id number] 09/17/2020 05:02:34 AM [facility] Name Value Range Interpretation Code Description Data Maura rce(s) Supporting Document(s) Magnesium [Mass/volume] in Serum or Plasma 1.8 mg/dL 1.6-2.6 [facility] ID Date Data Source [id number] 09/17/2020 05:02:34 AM [facility] Value Range Interpretation Code Description Data Maura rce(s) Supporting Document(s) Phosphate [Mass/volume] in Serum or Plasma 3.3 mg/dL 2.5-4.5 [facility] ID Date Data Source [id number] 09/16/2020 12:40:06 PM [facility] Value Range Interpretation Code Description Data Maura rce(s) Supporting Document(s) Consultation [facility] DMACKs4tIgGQXaGw44/AJYzbUPEmh4NmZEyhINq1KQcpBJCqJ2JnEKN2dE5kMYG4GRnNNhNtOyHrZlWu lbm [file] ICAgICAgICAgICAgICAgICAgICAgICAgICAgICAgICAgICAgICAgICAgICAgICAgICAgICAgICAgICAg ICAgICAgICAgICAgICAgICAgICAgICAgICAgICAgICAgICAgICANCiAgICAgICAgICAgICAgICAgICAg ICAgICAgICAgICAgICAgICAgICAgICAgICAgICAgIC AgICAgICAgICAgICAgICAgICAgICAgICAgICAgICAgICAgICAgICAgICAgICAgICANCiAgICAgICAgIC AgICAgICAgICAgICAgICAgICAgICAgICAgICAgICAgICAgICAgICAgICAgICAgICAgICAgICAgICAgIC AgICAgICAgICAgICAgICAgICAgICAgICAgICAgICAN CiAgICAgICAgICAgICAgICAgICAgICAgICAgICAgICAgICAgICAgICAgICAgICAgICAgICAgICAgICAg ICAgICAgICAgICAgICAgICAgICAgICAgICAgICAgICAgICAgICAgICANCiAgICAgICAgICAgICAgICAg ICAgICAgICAgICAgICAgICAgICAgICAgICAgICAgIC AgICAgICAgICAgICAgICAgICAgICAgICAgICAgICAgICAgICAgICAgICAgICAgICAgICANCiAgICAgIC AgICAgICAgICAgICAgICAgICAgICAgICAgICAgICAgICAgICAgICAgICAgICAgICAgICAgICAgICAgIC AgICAgICAgICAgICAgICAgICAgICAgICAgICAgICAg ICANCiAgICAgICAgICAgICAgICAgICAgICAgICAgICAgICAgICAgICAgICAgICAgICAgICAgICAgICAg ICAgICAgICAgICAgICAgICAgICAgICAgICAgICAgICAgICAgICAgICAgICANCiAgICAgICAgICAgICAg ICAgICAgICAgICAgICAgICAgICAgICAgICAgICAgIC AgICAgICAgICAgICAgICAgICAgICAgICAgICAgICAgICAgICAgICAgICAgICAgICAgICAgICANCiAgIC AgICAgICAgICAgICAgICAgICAgICAgICAgICAgICAgICAgICAgICAgICAgICAgICAgICAgICAgICAgIC AgICAgICAgICAgICAgICAgICAgICAgICAgICAgICAg ICAgICANCiAgICAgICAgICAgICAgICAgICAgICAgICAgICAgICAgICAgICAgICAgICAgICAgICAgICAg ICAgICAgICAgICAgICAgICAgICAgICAgICAgICAgICAgICAgICAgICAgICAgICANCjw/nWOrC8yikOZp qxX6L2rtZi7XPn9FAW1jw5AoVSPpHPagjaUwOpnZJw IsGTKeMxnSKio0HOfdZT4FdNOxE8CyB4BxUOmcVR8XUEDwFNFgnXPaRSVyWBPyJlT1SSJgLGtuKU8LoS JuFKlqGWGxKBEuMmTtDBIgWB4XIEAoD088gnRlRd9WYt4IIhHhWC7ico8QBrNnGUJcPdiEBxq9LBkhBN 0KvTTxdRFmZSWjVEAJIbNxE5prw6LfTgFwRUNNXRqo NE1Ni4ApjHAmNYs+Jg0BMA5sc1TtHZumUVKyAV3tvn5FZLqSEfBeP0UpcCbzUNOzxvJ1aTMmRJR0PGOk Z9svsSYOPW5zWqBxTZ6cKL8YUWM6YZNiEs6jCHZaEAZqZfNcBJRNKO4XGBHzKQQymFLwBTYqRKUCEQ4X TOfeVUU8SSTksgFrrWZoJIceFW0FDVUnpnWeXpYmPV BSDQo+Ul5HOB3ag6GjGZdbLgSxID9xed1RHHiHKzTfG5S8rAFtU1W9ODklVe4WKVZzDGHgUvAdXHXCVL lsDV5SUA3vfrN4LJ4JhUBbRREfLBMthVWkXQj0S18uyWIgRXrbTJ6CYLH+Nadya+Pu3ZQCHoWPJmUWMrRg EgPHDEFtQpZ0TfV1DNh5DwL4BoFL39uYfyrgEjZNjr XD5WHZ8lHBEaFLVDPQ4YsCIqoR6ytfQlVFEvKVTZGlIpW84llEBdLQJiMZCuGSMeJe6RBYJkO7UocgXa yOwxsnUtRTUkSTJBEW6KHTmcqdRrgWOddSsoBY53pOlzUI1HNi0JKhQqZJ2zod3MpRMjIo3KDVQyNm3B MAYfBFFhTEElDRL3WELbDcTyMClnRPFuAOOwEPC9YB QcKPXfUQ8BDqEyRSIkPoQrODCeUSUhOPDyhm0KZXMeCLYvQJS2BRMzOWFeVCDoVOddTVRdHCDaMIM9QN LdIWPyGC9RKmXgMKObRIXhCDmoBBGjCGKslu7DWCCuAOKxQwS1QfBoFKOfHIZeGPyaLWHnGCK1ZCL0PY SlXSGmEZ8SVsIsKRToMXGsXqdbXJBpOMQuvy5WZRAv IIUgDpy0PEJnRLJrVYSeNCjsPRBtDQJ9CUy6HNEmKQOlXH0FIuBtOECeOYimZaJoKQRiFYOwfb9YKTAk ENIwMBIyPVKwGEVcBEYdUCqxETAlMYF8FWJ9KMSyJOQrXJ8GOpDuVDRwGLc8JcMzTLYuAPOwbb0LIUNt HMQxKCAqDSXjZOBsWYCsHFneALUbFNDiYDD6SBQxDY LpTX7AHxTiCZTnWyN5HnKzFJKeRSTowj2LLSYsIPDhATq8QWEhTUGrUFRvQAjxBQNhHJWrXGYcNEIlKR LpVS2CGiAvBNCpKmT5DsGqFMMeZWZnjq6GNUPaPTYfBoN5SuMdHKOaAEUwWAesYREuXYZxMmGqSNCgLC CjRV1JQwVlHEPbMmV9ZWabWPMwZMIaua3XBPVrDEWd IKH5DtIwMYMsXOEhMOvzXWAgTTN1HyEbVQKuHZVvIV9IRoOpZPNyIyB0VAilIBZqFTNkcr9QjLNgyOhs qr7KDToGJe4XmLekPBA3RAeqYh5lzRGwFeMeYBIXKx4HyaJpXWXfBDDBBMhhTEDnGKL1GUC5UCUjWDUi JjtzJlNkGIPaHMx0FmD8GUJ6CLC3XqW3TXl7Wkw8Jp Q1AqP1QFI7IfDnKGT5JTGsWTjfYJd2SkP+EA2vSQr+Mx3Ls0IclgV5olXqCJnjQEK7PO6OSCBPG4FSYj == ID Date Data Source [id number] 09/16/2020 06:03:16 AM EST [facility] Name Value Range Interpretation Code Description Data Maura rce(s) Supporting Document(s) Operative Note [facility] MVEFJh7kBzRZGvJc84/ZVTyzNBTzd5ExQSxkTQc2FNdtCTTtX4KkXIE2aJ8hIYW6URlPBbXgBsFgPwZf lbm [file] SzOM2LLSGYZ6SHHt== ID Date Data Source [id number] 09/16/2020 06:00:11 AM [facility] Name Value Range Interpretation Code Description Data Maura rce(s) Supporting Document(s) Leukocytes [#/volume] in Blood by Automated count 12.3 10*3/uL 4-10 H [facility] Erythrocytes [#/volume] in Blood by Automated count 4.32 10*6/uL 4.1- 5.3 [facility] Hemoglobin [Mass/volume] in Blood 12.3 g/dL 11.5-15.5 [facility] Hematocrit [Volume Fraction] of Blood by Automated count 38.2 % 3 6-45 [facility] Erythrocyte mean corpuscular volume [Entitic volume] by Auto mated count 88.5 fL 80-96 [facility] Erythrocyte mean corpuscular hemoglobin [Entitic mass] by Automated count 28.4 pg 27-33 [facility] Erythrocyte mean corpuscular hemoglobin concentration [Mass/volume] by Automated count 32.1 g/dL 32.0-36.0 [facility] width [Ratio] by Automated count 14.9 % 11.5-14.5 H [facility] Platelets [#/volume] in Blood by Automated count 332 10*3/uL 150-400 [facility] ID Date Data Source [id number] 09/16/2020 06:21:06 AM [facility] Name Value Range Interpretation Code Description Data Maura rce(s) Supporting Document(s) Bicarbonate [Moles/volume] in Serum 23 mmol/L 22-29 [facility] Chloride [Moles/volume] in Serum or Plasma 96 mmol/L 98-107 L [facility] Creatinine [Mass/volume] in Serum or Plasma 0.81 mg/dL 0.50-0.90 [facility] Glucose [Mass/volume] in Serum or Plasma 117 mg/dL 70-140 [facility] Potassium [Moles/volume] in Serum or Plasma 3.4 mmol/L 3.4-5.1 [facility] Sodium [Moles/volume] in Serum or Plasma 131 mmol/L 136-145 L [facility] Urea nitrogen [Mass/volume] in Serum or Plasma 21 mg/dL 6-20 H [facility] Anion gap 3 in Serum or Plasma 13 mmol/L 8-15 [facility] Osmolality of Serum or Plasma by calculation 277 mosm/kg 275-300 [facility] Creatinine/Urea nitrogen [Mass Ratio] in Serum or Plasma 26 [facility] Calcium [Mass/volume] in Serum or Plasma 8.5 mg/dL 8.6-10.0 L [facility] Glomerular filtration rate/1.73 sq M pre dicted among non-blacks [Volume Rate/Area] in Serum or Plasma by Creatinine-based formula (MDRD) 80 mL/min/1.73m2 >60 [facility] Glomerular filtration rate/1.73 sq M pre dicted among blacks [Volume Rate/Area] in Serum or Plasma by Creatinine-based formula (MDRD) >60 [facility] ID Date Data Source [id number] 09/16/2020 06:21:06 AM [facility] Name Value Range Interpretation Code Description Data Maura rce(s) Supporting Document(s) Magnesium [Mass/volume] in Serum or Plasma 1.7 mg/dL 1.6-2.6 [facility] ID Date Data Source [id number] 09/16/2020 06:21:06 AM [facility] Name Value Range Interpretation Code Description Data Maura rce(s) Supporting Document(s) Phosphate [Mass/volume] in Serum or Plasma 3.9 mg/dL 2.5-4.5 [facility] ID Date Data Source [id number] 09/16/2020 01:44:47 AM [facility] XR CHEST FRONTAL ONLY [id number] RESULTI nterpreted by:SUNSHINE ReyesPROCEDURE INFORMATION: Exam: XR Chest Exam date and time: 09/16/2020 1:07 AM Age: 55 years old Clinical indication: Generalized abdominal pain; Device placement; Ng tube; Additional info: Post ng TECHNIQUE: Imaging protocol: XR of the chest Views: 1 view. COMPARISON: No relevant prior studies available. FINDINGS: Tubes, catheters and devices: NG tube terminates in the stomach. Lungs: Bi basilar opacities. Pleural spaces: No pneumothorax Heart/Mediastinum: Unremarkable. No cardiomegaly. Bones/joints: Spondylosis. IMPRESSION: 1. NG tube terminates in the stomach. THIS DOCUMENT HAS BEEN ELECTRONICALLY SIGNED BY JAYRO ARORA MDThis document has been electronically signed by SUNSHINE Reyes on 09/16/2020 1:44 AM Name Value Range Interpretation Code Description Data Maura rce(s) Supporting Document(s) ID Date Data Source [id number] 09/15/2020 10:37:16 PM EST [facility] Name Value Range Interpretation Code Description Data Maura rce(s) Supporting Document(s) Operative Note [facility] KBNRTb2cTeUWMyVg72/LDXsiIUNre8JsKOfvEHm8GQzjNEHqZ7OuPSH0lI1wEHM6JLpVYaKhEkBiFoOh lbm [file] [id number]qXJ6UEPc= ID Date Data Source [id number] [facility] : ABD FLUIDAcid fas t Stn XXX : No Acid fast bacilli seen on Fluorochrome stain.Swabs are suboptimal specimens for the isolation of most microorganism due to the small amount of material that is absorbed onto and released from the swab. Tissue, fluids, and aspirates are the preferred specimens for detection of microorganisms.Microorganism XXX Cult : No growth 56 days Name Value Range Interpretation Code Description Data Maura rce(s) Supporting Document(s) ID Date Data Source [id number] 10/13/2020 07:23:29 AM EDT [facility] Service Cmnt XXX-Imp : ABD FLUIDMicroorg anism XXX Cult : No growth 28 days Name Value Range Interpretation Code Description Data Maura rce(s) Supporting Document(s) ID Date Data Source [id number] 09/16/2020 01:33:[address] [facility] Cmnt XXX-Imp : ABD FLUIDGram Stn XXX : 4+WBC'S Seen.3+Gram positive cocciin pairs3+Gram positive rods3+Gram negative rodsMicroorganism XXX Cult : 2+Escherichia coli Name Value Range Interpretation Code Description Data Maura rce(s) Supporting Document(s) ID Date Data Source [id number] 09/15/2020 04:46:[address] [facility] [address] ABDOMEN PELVIS WITH CONTRAST [id number] REEMA RESULT - FINALInterpreted by:Hiwot Velazquez MDAddendum BeginsSigned on TueSep 15, 2020 4:46 PM by Hiwot Velazquez MDThe findings were verbally communicated via telephone conference with HAIM SAMS at 4:46 PM EST on 09/15/2020. The findings were acknowledged and understood.THIS DOCUMENT HAS BEEN ELECTRONICALLY SIGNED BY HIWOT VELAZQUEZ MDSigned on TueSep 15, 2020 4:32 PM by Hiwot Velazquez MDThe 2nd sentence in the soft tissues section should read "The gas collections are larger than they were on the prior studyThe following should be added to the stomach and bowel section: "Multiple diverticula are demonstrated in the descending and sigmoid colon."THIS REPORT CONTAINS FINDINGS THAT MAY BE CRITICAL TO PATIENT CARE. The findings were verbally communicated via telephone conference with Dr. Gonzalez at 4:30 PM EST on 09/15/2020. The findings were acknowledged and understood.THIS DOCUMENT HAS BEEN ELECTRONICALLY SIGNED BY HIWOT VELAZQUEZ [facility] EndsPROCEDURE INFORMATION: Exam: CT Abdomen And Pelvis With Contrast Exam date and time: 09/15/2020 3:49 PM Age: 55 years old Clinical indication: Generalized abdominal pain; Condition or disease; Abscess; Abscess location: Not specified; Additional info: H/o diverticulitis. Diagnosed with intra abdominal abscess. H/o long standing chronic incarcerated ventral hernia. New onsent tenderness and pain around in the abdomen TECHNIQUE: Imaging protocol: Computed tomography of the abdomen and pelvis with contrast. Radiation optimization: All CT scans at this facility use at least one of these dose optimization techniques: automated exposure control; mA and/or kV adjustment per patient size (includes targeted exams where dose is matched to clinical indication); or iterative reconstruction. Contrast material: OMNIPAQUE 300; Contrast volume: 100 ml; Contrast route: INTRAVENOUS (IV); COMPARISON: CT Abdomen Pelvis w Con 09/13/2020 4:17 PM FINDINGS: Lungs: Nonspecific bibasilar consolidation is present. Heart: There is calcification of the mitral valve annulus. Liver: The liver is normal. Gallbladder and bile ducts: There has been a cholecystectomy. Pancreas: The pancreas is normal. Spleen: The spleen is normal. Adrenal glands: The adrenal glands are normal. Kidneys and ureters: The kidneys are normal. The ureters are normal. Stomach and bowel: There is a large ventral hernia containing a loop of nonobstructed large bowel in the midline at about the level of the umbilicus. The hernia orifice measures about 3.4 cm in diameter. No fluid is seen in the hernia or within the adjacent soft tissues. The prior pigtail catheter has been removed. Appendix: A normal appendix is identified. Intraperitoneal space: There is a new extraluminal fluid and gas collection in the lateral aspect of the abdomen on the left adjacent to the descending colon. The collection measures about 11.2 x 4.1 by 10.1 cm. There is mild distention of proximal small bowel loops in the left upper quadrant measuring up to about 3.5 cm in diameter. There appears to be a transition point in the left mid abdomen seen on series 601 images 49 through 53 and series 2 images 55-59. Vasculature: The aorta is normal. Lymph nodes: No pathologic lymph node enlargement is demonstrated. Urinary bladder: The bladder is normal. Reproductive: The uterus is normal. Bones/joints: There is a moderate scoliosis. Marginal osteophytes are noted at multiple levels in the spine. There is moderate to marked degenerative disc disease in the lumbar spine. Soft tissues: There are multiple small gas collections under the anterior abdominal wall within the peritoneal space. These are smaller than they were on the prior study. IMPRESSION: 1. Bibasilar consolidation consistent with atelectasis or pneumonia. 2. New fluid and air collection in the left pericolic gutter suspicious for new abscess. 3. Nonobstructive ventral abdominal wall hernia containing a loop of transverse colon. THIS DOCUMENT HAS BEEN ELECTRONICALLY SIGNED BY HIWOT VELAZQUEZ MDThis docum ent has been electronically signed by Hiwot Velazquez MD on 09/15/2020 4:21 PM Name Value Range Interpretation Code Description Data Maura rce(s) Supporting Document(s) ID Date Data Source [id number] 09/24/2020 10:30:25 PM [facility] Name Value Range Interpretation Code Description Data Maura rce(s) Supporting Document(s) ABO and Rh group [Type] in Blood [facility] Blood bank comment [facility] ID Date Data Source [id number] 09/15/2020 02:12:05 PM [facility] Name Value Range Interpretation Code Description Data Maura rce(s) Supporting Document(s) History and Physical [facility] ZYZETy1xXxPUAbVo61/UKCglLHZow5PfDQvoUAr8AYpiUMDpB9LuHVQ9xP4gZIH6LOcZMfXrRwQpWpLk lbm NzDazKQdJmKVGdKftAKtTfBYrkNakinZWuSS7LjDK1OYEvZ74nCGCrTRHfK8CzPGWtPry+Tw4VNUFopQ WiYB5FBwmQ2P6VMiyIBs4vpV7EOvJUo/vGfa4W7piZ2GJzKFLrbXU1WfmQpGYwKkbm39+rq2Cure+Hsj cxbFF2Q9EWQ1xG2A0NXxZOfR/+JMik5HzDlzkl/YxT z5xdm3/+w8yb+d9n4fxax2Fa1MmJbfnE8l+++/2x2YYL7n7s3l0I1wq/eGGSKDAbqROZXv/ZznPT+69x fT9/znYrYex0WMnncQDfiJcFSyFeJrrXB61SSvRROxRpEWUmew8JnWlpJIeJ1I53gNW52DTsVzloEqdX xy4FIaW5fsq+BHoEDK7oQpWEqh6MMVazqpvubb/81p sZuiEC7ydBddfPuJYa4GDtv1b5q2akY7+i5ekPVRhgwvEVP4Cvs5P+1DTua9eeQtiPIw0LuV4y6s5HcQ jailyn/5dv9tPBpqi3TRcFcQWRmLnNfxnnwpzc5Urj/UjU2z7HvWzlerdkh4pSulgzYso8OA9wjTSPggahVB [file] Ip8Ua0ImtlO4txXdJMvzFAC7YT9EOVUIF7OLFt== ID Date Data Source [id number] 09/15/2020 05:42:49 AM [facility] Name Value Range Interpretation Code Description Data Maura rce(s) Supporting Document(s) Leukocytes [#/volume] in Blood by Automated count 11.1 10*3/uL 4-10 H [facility] Erythrocytes [#/volume] in Blood by Automated count 4.13 10*6/uL 4.1- 5.3 [facility] Hemoglobin [Mass/volume] in Blood 11.9 g/dL 11.5-15.5 [facility] Hematocrit [Volume Fraction] of Blood by Automated count 36.8 % 3 6-45 [facility] Erythrocyte mean corpuscular volume [Entitic volume] by Auto mated count 89.1 fL 80-96 [facility] Erythrocyte mean corpuscular hemoglobin [Entitic mass] by Automated count 28.8 pg 27-33 [facility] Erythrocyte mean corpuscular hemoglobin concentration [Mass/volume] by Automated count 32.3 g/dL 32.0-36.0 [facility] width [Ratio] by Automated count 15.2 % 11.5-14.5 H [facility] Platelets [#/volume] in Blood by Automated count 323 10*3/uL 150-400 [facility] ID Date Data Source [id number] 09/15/2020 06:00:25 AM [facility] Name Value Range Interpretation Code Description Data Maura rce(s) Supporting Document(s) Magnesium [Mass/volume] in Serum or Plasma 1.8 mg/dL 1.6-2.6 [facility] ID Date Data Source [id number] 09/15/2020 06:00:25 AM [facility] Name Value Range Interpretation Code Description Data Maura rce(s) Supporting Document(s) Phosphate [Mass/volume] in Serum or Plasma 3.7 mg/dL 2.5-4.5 [facility] ID Date Data Source [id number] 09/15/2020 06:00:25 AM [facility] Name Value Range Interpretation Code Description Data Maura rce(s) Supporting Document(s) Bicarbonate [Moles/volume] in Serum 27 mmol/L 22-29 [facility] Chloride [Moles/volume] in Serum or Plasma 102 mmol/L 98-107 [facility] Creatinine [Mass/volume] in Serum or Plasma 0.80 mg/dL 0.50-0.90 [facility] Glucose [Mass/volume] in Serum or Plasma 79 mg/dL 70-140 [facility] Potassium [Moles/volume] in Serum or Plasma 3.5 mmol/L 3.4-5.1 [facility] Sodium [Moles/volume] in Serum or Plasma 141 mmol/L 136-145 [facility] Urea nitrogen [Mass/volume] in Serum or Plasma 21 mg/dL 6-20 H [facility] Anion gap 3 in Serum or Plasma 12 mmol/L 8-15 [facility] Osmolality of Serum or Plasma by calculation 294 mosm/kg 275-300 [facility] Creatinine/Urea nitrogen [Mass Ratio] in Serum or Plasma 26 [facility] Calcium [Mass/volume] in Serum or Plasma 9.0 mg/dL 8.6-10.0 [facility] Glomerular filtration rate/1.73 sq M pre dicted among non-blacks [Volume Rate/Area] in Serum or Plasma by Creatinine-based formula (MDRD) 81 mL/min/1.73m2 >60 [facility] Glomerular filtration rate/1.73 sq M pre dicted among blacks [Volume Rate/Area] in Serum or Plasma by Creatinine-based formula (MDRD) >60 [facility] ID Date Data Source [id number] 09/17/2020 04:50:00 PM [facility] Surgical Pathology ReportName: Bravo ALBERTOMRN: [id number] Number: [id number] Date: 09/15/2020 00:00Received Date: 09/16/2020 11:00Physician(s): HAIM SAMS,HAIM HUERTA,MDSpecimen(s) ReceivedA: Descending sigmoid and proximal rectumClinical HistoryPerforated viscous. DiagnosisCOLON, DESCENDING AND SIGMOID, RESECTION: PERFORATED DIVERTICULITIS WITHPERIDIVERTICULAR ABSCESS. Lena Alas M.D.;Resident PathologistElectronically Signed By Oswaldo Jefferson M.D., Attending Pathologist09/17/2020 16:50:35 The attending pathologist named above attests that he/she has personallyreviewed the relevant preparation(s) for the specimen, performedmicroscopic examination when indicated, and rendered the final diagnosis.Unless 'gross-only' is specified, the final diagnosis is based on amicroscopic examination of collections representative sections of tissue.Gross DescriptionThe specimen is received in formalin labeled with the patient's name"Silvia Alberto" and "descending sigmoid and possible rectum". It consistsof a fragment of colon measuring 20.0 cm in length with a moderate amountof attached fat. There is serosa identified that is purple-reed inappearance. There is exudate present encompassing the serosa and theoverlying fat. Mottled areas of hemorrhage are identified bordering atransmural defect. The defect measures 1.5 cm in diameter andcommunicates with the lumen of the colon. On opening, the mucosa is pinkwith the usual folds and a slight edematous appearance. There are nomass lesions seen. Numerous diverticula are identified, particularlywithin the area of the defect. Complicated abscessed areas are identifiedwithin the wall. Physician sections are submitted as follows:A1 -marginsA2-3 -radial sections to defectA4 -area of abscessA5 -exudateND/pmwThis report may include one or more immunohistochemical stain results thatuse analyte specific reagents. All positive and negative controls havebeen reviewed by the attending pathologist and are satisfactory. The testswere developed and their performance characteristics determined by [facility] Pathology department. They have not been cleared or approved by the USFood and Drug Administration. The FDA has determined that such clearanceor approval is not necessary. Name Value Range Interpretation Code Description Data Maura rce(s) Supporting Document(s) ID Date Data Source [id number] 09/13/2020 02:39:00 PM [facility] Name: SILVIA ALBERTO [facility] Rec #: [id number] 87 : 1965 Age/Sex: 55F Date of Service: 09/13/20 PHYSICIAN CHART Physician Documentation [facility] Name: Silvia Alberto Age: 55 yrs Sex: Female : 1965 Arrival Date: 09/13/2020 Time: 14:39 Bed 5 Private MD: Out of town , Provider ED Physician CarlManolo Disposition: 09/13 20:53 Attestation: I discussed the plan of care with Advanced [facility] Practice Provider and agree with what they have documented. 20:54 Chart complete. [facility] HPI: 15:53 This 55 yrs old Female presents to ER via jja1 [facility] with complaints of Post Surgical Pain. 15:53 Patient is a 55-year-old female medical history significant jja1 for diverticulitis, breast cancer stage I with surgical removal and radiation and is in remission now, DVT currently on Xarelto, presenting to the emergency department today with complaints of continuous abdominal pain. Patient reports that she has been having ongoing abdominal pain for the past 8 months. She reports that she has been seeking care at [facility]. She has had multiple work-ups and was finally diagnosed with an intra- abdominal abscess. A drain was placed in the abscess approximately 2 days ago. Patient reports ongoing and significantly worse pain over the past few days. She reports that she went to [facility] emergency department yesterday and underwent CT scan and lab work, and was told that there was no acute findings and was discharged home. She presents today stating that the pain is continuous. She reports fatigue and overall malaise. Patient denies fever, nausea, vomiting. She does report a colonoscopy on August 19, 2020 and was told that she has diverticulosis with no other acute findings.. Historical: - Allergies: Codeine; - Home Meds: 1. pantoprazole 40 mg oral TbEC 1 tab once daily 2. Augmentin 875-125 mg Oral tab 1 tab every 12 hours 3. Xarelto 20 mg oral tab 1 tab once daily has not started yet after stoping last Tuesday 4. letrozole 2.5 mg oral tab 1 tab once daily 5. Vitamin D Oral daily - PMHx: Diverticulitis; DVT; - PSHx: Cholecystectomy; - Med Reconciliation:: Green Alert: The patient's med list is complete to the best of the nurse's/provider's knowledge. Medications reviewed, completed by nurse verbally from patient/family. - Immunization history: Flu vaccine is not up to date. - Advance directive: There is no existing advanced directive. Information offered. - Family History:: mother has a history of cardiac disorder. - Social History: Smoking status (Tobacco): Patient states they are a former tobacco smoker, quit smoking 32 years ago. No barriers to communication noted, The patient speaks fluent Anguillan. - The history of the events were obtained from: the patient. ROS: 15:57 Constitutional: See HPI. Head Negative for Injury. ENT: jja1 Negative for acute changes. Eyes: Negative for acute changes. Neck: Negative for injury or acute deformity. Chest Negative for Injury. Cardiovascular: Negative for chest pain. Respiratory: Negative for cough, shortness of breath, wheezing. Abdomen/GI: See HPI. Skin: Negative for rash. Neuro: Negative for acute changes. All other systems are negative. Exam: 15:58 Constitutional: The patient appears alert, appears to be jja1 awake, does not appear to be toxic. 15:58 Head/face: Exam is negative for abnormalities. 15:58 Eyes: Pupils: equal, round, and reactive to light and accomodation. 15:58 ENT: Ear canal(s): are normal , clear. 15:58 Neck: External neck: is normal. 15:58 Chest/axilla: Inspection: normal, no assymetry. 15:58 Cardiovascular: Rate: normal. 15:58 Respiratory: the patient does not display signs of respiratory distress, Respirations: normal, symetrical, Breath sounds: are normal, clear throughout. 15:58 Abdomen/GI: Inspection: obese, - moderately Bowel sounds: normal, in all quadrants, Palpation: soft, in all quadrants, moderate abdominal tenderness, in all quadrants, rebound tenderness, is not appreciated. 15:58 Skin: Appearance: Color: pink, Temperature: warm, Moisture: dry. 15:58 Neuro: Orientation: to person, place, time & situation. Vital Signs: 14:50 BP 127 / 58; Pulse 96; Resp 16; Temp 99.7; Pulse Ox 99% on tp1 R/A; Weight 101.15 kg; Height 5 ft. 5 in. (165.10 cm); 16:00 BP 134 / 68; Pulse 89; Pulse Ox 97% on R/A; tp1 17:27 BP 130 / 73; Pulse 99; Resp 19; Pulse Ox 95% on R/A; tp1 18:54 BP 135 / 79; Pulse 117; Resp 18; Pulse Ox 94% on R/A; tp1 19:06 BP 116 / 71; Pulse 114; Resp 14; Pulse Ox 97% on 2 lpm NC; tp1 20:17 BP 124 / 57; Pulse 88; Resp 22; Temp 97.4(TE); Pulse Ox 97% tb7 on R/A; Pain 2/10; 22:12 BP 127 / 65; Pulse 84; Resp 22; Temp 98.5(TE); Pulse Ox 98% tb7 on 2 lpm NC; Pain 2/10; 14:50 Body Mass Index 37.11 (101.15 kg, 165.10 cm) tp1 MDM: 14:41 Patient medically screened. jja1 16:01 Case presented to: Dr. Mitch Pichardo. Data reviewed: jja1 vital signs, nurses notes, old medical records. 18:12 Physician consultation: Colin Dumont MD was called at 18:00, [facility] Dr. Dumont has reviewed the CT scan and other available laboratory studies and has determined that this case with the difficult to be managed here at [facility]. She advises transfer to [facility] or another tertiary center for definitive care.. 18:13 ED course: Patient presented today with complaint of jja1 abdominal pain in the setting of drain placement yesterday. Patient noted to have significant abdominal discomfort. CT scan and laboratory studies were performed. Patient found to have inflammatory changes of the sigmoid colon consistent with diverticulitis. There is no omaira abscess collection. There is extraluminal air seen in the abdomen and pelvis suspicious for perforated viscus. The radiologist also notes a high-grade distal small obstruction. The transition point of the distal small obstruction is in proximity of the sigmoid colon diverticulitis suggesting reactive changes in the small bowel secondary to diverticulitis. Based on the findings from the CT scan I have initiated antibiotic therapy on this patient. I did consult with Dr. Dumont, our on-call surgeon, who has asked me to call tertiary center as she thought the surgery would be complicated and not able to be performed here at [facility]. I have reached out to Dr. Messer at [facility], who states that she is reluctant to take on a case in which a drain was placed in the patient yesterday, and likely could have led to the presenting complication. She recommends attempting to call the original facility in order to pursue having the patient follow with her original surgeon from that hospital. The patient has mentioned that she is fairly reluctant to return to [facility], as she believes that her care has been subpar there.. 18:50 E D course: I have discussed the case with Dr. Dumont again, who now states that she will come in and see the patient to evaluate and likely attempt a transfer to a tertiary center for surgery. Dr. Dumont is on her way into the hospital to evaluate the patient.. 09/13 14:53 Order name: CRP - Wide Range; Complete Time: 16:17 09/13 14:53 Order name: Cbc With Auto Differential; Complete Time: 16:1709/13 14:53 Order name: Comprehensive Metabolic Prof.; Complete Time: 16:17 09/13 14:53 Order name: Lipase; Complete Time: 16:17 09/13 14:53 Order name: UA.; Complete Time: 19:19 09/13 14:53 Order name: Lactic Acid; Complete Time: 16:17 09/13 14:53 Order name: Ct Abdomen & Pelvis with Con 09/13 18:32 Order name: POC COVID19 NOW; Complete Time: 19:19 09/13 19:14 Order name: Urinalysis Auto w/Microscopy; Complete Time: EDMS 19:19 09/13 14:53 Order name: Collect Urine - Clean Catch; Complete Time: 17:57 09/13 14:53 Order name: Iv Saline Lock; Complete Time: 15:18 09/13 14:53 Order name: NPO; Complete Time: 15:18 09/13 17:58 Order name: POC - Collect COVID-19 swab; Complete Time: tp 18:21 Dispensed Medications: 15:45 Drug: morphine 4 mg [morphine 4 mg/mL injection syringe (1 tp1 mL)] Route: IVP; Site: left antecubital; 17:28 Follow up: Response: No change in condition tp1 18:12 Drug: HYDROmorphone 1 mg Route: IVP; Site: right forearm; tp1 19:08 Follow up: Response: Pain is decreased tp1 18:12 Drug: Piperacillin-Tazobactam 4.5 grams Route: IVPB; Site: tp1 left forearm; 19:08 Follow up: IV Status: Completed infusion tp1 19:08 Drug: Ofirmev 1000 mg Route: IVPB; Site: right forearm; tp1 19:47 Follow up: IV Status: Completed infusion tb7 19:09 Drug: NS 0.9% 1000 ml Route: IV; Rate: 999 mL/hr; Site: tp1 right forearm; 20:18 Follow up: IV Status: Completed infusion tb7 22:11 Drug: HYDROmorphone 1 mg [hydromorphone 1 mg/mL injection tb7 syringe (1 mL)] Route: IVP; Site: right forearm; 22:11 Follow up: Response: Medication administered at discharge. tb7 Disposition Summary: 09/13/20 20:54 Transfer Ordered Transfer Location: [place] [address] Reason: Higher level of care [facility] Accepting Physician: Dr. Lawrence(09/13/20 22:13) tb7 Diagnosis - Diverticulitis, perforated viscous, SBO [facility] Discharge Instructions: - Discharge Summary Sheet tb7 Forms: - Fax Visit Summary [facility] - SBAZ tb7 Signatures: Dispatcher [employer] Reema Payne RN RN tp1 Manolo Henry MD MD jam2 Haim Borrero RNP [employer] jja1 Zamzam Mcarthur RN RN tb7 Corrections: (The following items were deleted from the chart) 22:13 20:54 Dr. Lawrence [facility] tb7 Name Value Range Interpretation Code Description Data Maura rce(s) Supporting Document(s) ID Date Data Source [id number] 09/13/2020 02:39:00 PM [facility] Name: SILVIA ALBERTO [facility] Rec #: [id number] 87 : 1965 Age/Sex: 55F Date of Service: 09/13/20 DISPOSITION SUMMARY Discharge Summary [facility] Name:Silvia Alberto Emergency Department Age:55 yrs Sex:Female :1965 Arrival:09/13/2020 14:39 Departure Date09/13/2020 Departure Time22:13 Private MD:Out of town, Provider Outcome: Transfer Location: [facility] Condition: Chief Complaint: Post Surgical Pain Diagnosis: - Diverticulitis, perforated viscous, SBO Prescriptions: Custom Notes: Attending Physician: Manolo Henry MD Private MD: Out of [facility], Provider Mid Level Provider: Haim Borrero RNP Accepting Physician: Dr. Lawrence Orders: CRP - Wide Range, Cbc With Auto Differential, Comprehensive Metabolic Prof., Lipase, UA., Lactic Acid, Ct Abdomen & Pelvis with Con, morphine, HYDROmorphone, Piperacillin-Tazobactam, POC COVID19 NOW, Ofirmev, NS 0.9%, Urinalysis Auto w/Microscopy, Collect Urine - Clean Catch, Iv Saline Lock, NPO, POC - Collect COVID-19 swab, HYDROmorphone Discharge Instruction: Discharge Summary Sheet, Fax Visit Summary, SBAR Name Value Range Interpretation Code Description Data Maura rce(s) Supporting Document(s) ID Date Data Source [id number] 09/13/2020 02:39:00 PM EST [facility] Name: SILVIA ALBERTO Med Rec #: [id number] 87 : 1965 Age/Sex: 55F Date of Service: 09/13/20 NURSE CHART Nurse's Notes [facility] Name: Silvia Alberto Age: 55 yrs Sex: Female : 1965 Arrival Date: 09/13/2020 Time: 14:39 Bed 5 Private MD: Out of town , Provider Diagnosis: Diverticulitis, perforated viscous, SBO Presentation: 09/13 14:45 Transition of care: rodriguez ayofranc was not received from another [facility] setting of care. Presenting complaint: Patient states - Pt has had on going abdominal issues for the last 8 months, in June they discovered an abscess. Yesterday she had surgery to drain the abscess in [facility]. After surgery pt has severe pain and went back to [facility] ED where they did another CT scan and blood work, they found nothing wrong so they discharged the pt. pt has continued pain and N/V when the pain is severe. Have you travelled in the last 30 days? No. Have you had contact with an individual with a confirmed diagnosis of Ebola or COVID-19? No. 14:45 Method Of Arrival: [facility] tp1 14:45 Acuity: Urgent - 3 tp1 Triage Assessment: 14:51 SEPSIS SCREEN: A Confirmed or Suspected Infection is tp1 Unknown, their temperature is not <96.8 or >100.9, their heart rate is >90, their RR is not >20, it is unknown if their WBC is <4 or >12, the patient does not have new or unexplained altered mental status. SIRS or Sepsi s criteria is not present. Suicide Screening: Have you had thoughts of harming yourself or others? No. The patient appears to be uncomfortable, The patient is behaving appropriately according to age, cooperative. The patient complains of pain in abdomen. Respiratory: No deficits noted. GI: Abdomen is obese, other pt has surgical drain placed in lower left quadrant. small amount of blood in bag. Historical: - Allergies: Codeine; - Home Meds: 1. pantoprazole 40 mg oral TbEC 1 tab once daily 2. Augmentin 875-125 mg Oral tab 1 tab every 12 hours 3. Xarelto 20 mg oral tab 1 tab once daily has not started yet after stoping last Tuesday 4. letrozole 2.5 mg oral tab 1 tab once daily 5. Vitamin D Oral daily - PMHx: Diverticulitis; DVT; - PSHx: Cholecystectomy; - Med Re conciliation:: Green Alert: The patient's med list is complete to the best of the nurse's/provider's knowledge. Medications reviewed, completed by nurse verbally from patient/family. - Immunization history: Flu vaccine is not up to date. - Advance directive: There is no existing advanced directive. Information offered. - Family History:: mother has a history of cardiac disorder. - Social History: Smoking status (Tobacco): Patient states they are a former tobacco smoker, quit smoking 32 years ago. No barriers to communication noted, The patient speaks fluent Anguillan. - The history of the events were obtained from: the patient. Screenin:57 AUDIT 1. How often do you have a drink containing alcohol? tp1 Never (0 points). Drug Abuse Screening Test: 1. Have you used drugs other than those required for medical reasons? No (0 points), screen is complete, no risk. Abuse screen: Denies threats or abuse. Denies injuries from another. Nutritional screening: No deficits noted. Patient's gait is weak (10 points). Assessment: 14:58 See Triage Assessment. tp1 Vital Signs: 14:50 BP 127 / 58; Pulse 96; Resp 16; Temp 99.7; Pulse Ox 99% on tp1 R/A; Weight 101.15 kg; Height 5 ft. 5 in. (165.10 cm); 16:00 BP 134 / 68; Pulse 89; Pulse Ox 97% on R/A; tp1 17:27 BP 130 / 73; Pulse 99; Resp 19; Pulse Ox 95% on R/A; tp1 18:54 BP 135 / 79; Pulse 117; Resp 18; Pulse Ox 94% on R/A; tp1 19:06 BP 116 / 71; Pulse 114; Resp 14; Pulse Ox 97% on 2 lpm NC; tp1 20:17 BP 124 / 57; Pulse 88; Resp 22; Temp 97.4(TE); Pulse Ox 97% tb7 on R/A; Pain 2/10; 22:12 BP 127 / 65; Pulse 84; Resp 22; Temp 98.5(TE); Pulse Ox 98% tb7 on 2 lpm NC; Pain 2/10; 14:50 Body Mass Index 37.11 (101.15 kg, 165.10 cm) tp1 ED Course: 14:40 Reema Yeager, RN is Primary Nurse. krm 14:40 Patient arrived in ED. krm 14:41 Haim Borrero RNP is PHCP. jja1 14:41 Mitch Pichardo DO is Attending Physician. jja1 14:45 Out of town, Provider is Private Physician. tp1 14:50 Triage completed. tp1 14:51 Arm band placed on left wrist. Patient placed in exam room tp1 Patient has correct armband on for positive identification. Placed in gown. Bed in low position. Call light in reach. Side rails up X 1. 14:51 Pulse on is on. NIBP on. tp1 16:09 Radiology: The patient went to get his/her CT at 16:09. tp1 16:41 Ct Abdomen & Pelvis with Con Sent. awr 16:41 Inserted peripheral IV: 20 gauge in palmar aspect of right awr forearm. Discontinued IV IV infiltrated during CT, called to CT and new IV was placed. 18:22 Labs drawn by lab staff. Urine collected. Clean catch tp1 specimen. 18:31 The patient was tested for COVID-19 and the result was rp1 negative, provider notified: Haim WHEELER. 18:47 Primary Nurse role handed off by Reema Yeager RN skb 18:50 Zamzam Mcarthur, EVELINA is Primary Nurse. skb 19:00 Attending Physician role handed off by Mitch Pichardo DO jam2 19:00 Manolo Henry MD is Attending Physician. jam2 19:07 property assessment monitor on. tp1 19:07 Oxygen administration via nasal cannula & 2L/min. tp1 20:17 Dr. Dumont. tb7 20:50 Dr. Dumont spoke with physician at [facility] and tb7 patient will be transferred ER to ER. 21:43 No procedures ordered. tb7 Administered Medications: 15:45 Drug: morphine 4 mg [morphine 4 mg/mL injection syringe (1 tp1 mL)] Route: IVP; Site: left antecubital; 17:28 Follow up: Response: No change in condition tp1 18:12 Drug: HYDROmorphone 1 mg Route: IVP; Site: right forearm; tp1 19:08 Follow up: Response: Pain is decreased tp1 18:12 Drug: Piperacillin-Tazobactam 4.5 grams Route: IVPB; Site: tp1 left forearm; 19:08 Follow up: IV Status: Completed infusion tp1 19:08 Drug: Ofirmev 1000 mg Route: IVPB; Site: right forearm; tp1 19:47 Follow up: IV Status: Completed infusion tb7 19:09 Drug: NS 0.9% 1000 ml Route: IV; Rate: 999 mL/hr; Site: tp1 right forearm; 20:18 Follow up: IV Status: Completed infusion tb7 22:11 Drug: HYDROmorphone 1 mg [hydromorphone 1 mg/mL injection tb7 syringe (1 mL)] Route: IVP; Site: right forearm; 22:11 Follow up: Response: Medication administered at discharge. tb7 Outcome: 20:54 ER care complete, transfer ordered by MD. saeed 21:42 The patient was transferred by EMS ground transport [place] [facility] Rescue. The patient's transfer packet has been completed. x-rays sent w/ patient Report given to Reilly Donovan at [facility] 22:12 Patient verbalized understanding of disposition tb7 instructions. Patient has no functional deficits. Patient awake and alert. Oriented to person, place and time. 22:12 Condition: stable 22:12 Not Applicable. 22:12 Vitals are Complete in accordance with Emergency Department Policy. 22:13 Patient left the ED. tb7 09/14 11:11 24 hour call back N/A - Patient was transferred tp1 Signatures: Reema Yeager RN RN tp1 Manolo Henry MD MD jam2 Bhargav Bourne RN RN awr Brown, Sarah, RN RN skHaim Galeas RNP [employer] jja1 Lucy Bains RN RN rp1 Zamzam Mcarthur RN RN tb7 Joan Acharya Name Value Range Interpretation Code Description Data Maura rce(s) Supporting Document(s) ID Date Data Source [id number] 09/14/2020 12:35:00 PM EST [facility] Name Value Range Interpretation Code Description Data Maura rce(s) Supporting Document(s) SARS-CoV-2 RNA 2019 nCoV Real-Time RT-PCR: NOT DETECTED [facility] This lab was ordered by [facility] and reported by [facility]. ID Date Data Source [id number] 09/14/2020 02:16:53 PM [facility] Service Cmnt XXX-Imp : NoneRespiratory P CR Panel : PCR ResultsMicroorganism XXX Cult : See Labs Tab for 2019 nCoV RT-PCR resultsHAdV DNA QI MILEY+non-probe : Not DetectedHCoV 229ERNA Nph QI MILEY+non-probe : Not DetectedHCoV [id number] Nph QI MILEY+non-probe : Not QeespnztFOrIAT02 RNA Nph QI MILEY+non-probe : Not EirxdnlvXOqTNC96 RNA Upper resp QI MILEY+probe : Not DetectedhMPV RNA Nph QINAA+non-probe : Not DetectedRV+EV RNA Nph QI MILEY+non-probe : Not DetectedFLUAV RNA Nph QI MILEY+ non-probe : Not DetectedFLUBV RNA Nph QI MILEY+non-probe : Not DetectedHPIV1 RNA NphQINAA+non-probe : Not DetectedHPIV2 RNA Nph QINAA+non-probe : Not DetectedHPVI3 RNA Nph MILEY+non-probe : Not DetectedHPIV4 RNA Nph Q MILEY+non- probe : Not DetectedRSV RNA Nph Q MILEY+non-probe : Not DetectedB pert.PT PrmtNph Q MILEY+non-probe : Not DetectedC pneum DNA Nph Q MILEY+non-probe : Not DetectedM pneum DNA Nph Q MILEY+non-probe : Not DetectedB lbadmDV881 DNA Nph MILEY+non-probe : Not Detected Name Value Range Interpretation Code Description Data Maura rce(s) Supporting Document(s) ID Date Data Source [id number] 09/14/2020 02:15:08 PM EST [facility] Name Value Range Interpretation Code Description Data Maura rce(s) Supporting Document(s) Specimen source [Identifier] of Unspecified specimen [facility] SARS-CoV-2 RNA 2019 nCoV Real-Time RT-PCR: NOT DETECTED [facility] Assay Performed [facility] Patients first test for [facility] Patient employed in healthcare setting [facility] Patient has symptoms related to [facility] When did you start to experience these symptoms [Date and time] [Phen X] [facility] Patient was hospitalized because of this condition [facility] patient was admitted to ICU for [facility] Patient resides in a congregate care setting [facility] status [facility] ID Date Data Source [id number] 09/14/2020 05:26:31 AM [facility] Name Value Range Interpretation Code Description Data Maura rce(s) Supporting Document(s) ED Provider Note [facility] SEAMXj8bNhNZSgLn39/UKSqsGRLcz2XmFZelJUf7RQkpPJDdQ7EsAYI8wP4gPRT3ONkPLtQeZrVuLaE1 lbm [file] 4NSQ6dzrM9XG9YqFNmHVHsIOQhcPQmYBx9N07ecTYnJVsoGF5QCVP+Nadya+Te8NYTDkXWYdWNAjZgCoUT RHIgWvK5DaD6EPn4UoL5MyCK58gZgrmlPhPNjiQD3CUQ5zQXMsGDIPGP4RoAEiyO3sugGqAFLbRSYWDq WjX99bjCCxJPTsWJZ9XJXkLz0QANQtQ7SuobAinVnw kyIlQTStZQEDQV2PORibciMbvKNtcLdaNB02nBhpUA5XKa7UKsRrND2ghx0DoJXiGb1ADDR5MP6AYNXi KLLsUQHvPLV2MJTwJoQaNZdoWJBjFQGiYMH4GMZhMVXzWA1MLwUyAZXfYRLhQvwoNOKhPDCjyr4WYJKk YSY5NCw0EVWgXRJxTOSgZGvrVYMfKKHwCIM1RGQyLU SzAZ1JSzYwCFVrVOTvDABvSBUxPEWnji4WMYDzLBBnAsUmPBInKHTfNDGwEDliUBXtEVU8MMo7PEKvZL GePV3CQsByAVZcDZDvSPQfCNRqIWFpzj0UDNWiQRVpKLnkIJOkFGJqRTUhOYweZSVqPWC9URE4YRTkXB VpOH8TTwStRTPoFTWnTykmFJApVPUkls4HYDTtBOBf NuHfBUBcEKGaAIDhCVecLTQeUPP4VWe7BZCsLVOzNV3CDtUbJOWwEQRyADDvQSIyVTXmaz6EANEaWGFn DrztDoRiOCSeIDGbFNkqUEGuCHT0VLEcHLDoCPCiGF9LEmCfBKPdPkVeSDRnXSQpUUJaki1WCZShMCQq UHA7YPShUVNxSUGeIRwzSJMkBRLqSKx7YOAbPFFuPA 2DUbYqFYBpZsFmCSSgCDCqRXTphi2UUUPtOZXjZqP5HFTtJWUwHKRdSBqdHWLePDHcPCF8SVMkMQNpNE 1KAbNkZFCnGeA3FdHkNMFoXDBfgl5KUPUrJZNuZJM4ZTGoAEGpXXCeZRctDPWrHIP2RCskWIGwYSPbKS 9CDpZxXPAgLvTfOqYcSEOfHBOutl5UXVVoGFHnTaMs ILNkQWNdFGErIKryEZNfPBL4AcV6LBIkICWvIB1QOhSbXYJcUrL4ANYaRFPjUMQxfj5VNXSfTXFjMfl0 DPWrLFBaPZHaBCtgUGExHHQ7ZRYtRVHxSNXhVJ2VYhUtRYQcCberPcWdXKPoLFFixk6ZYPSsBSHmDWD4 CSQjSRBtWSJuFYbsURBaYHC5SvN8YKHiGSCwPW9FEl LvDSOjZpc9DVUiQMWdUWKvqf2VWQZmETTyVDhlTDDzUHUlRRBzXUlfFRTfBPUqIED6AOSzGRGvDS6WXy HrBKDdPXG0QUPwJSDfRBCwok8RMHQaWPK5IRefGGJvPTKdIYOwNSjyKNMwKQVtKAR0MZTeABSeNM9QEd VmQCAsALMvFuFlPEKmPSToam8DOHHfJXE0LhD5PGBg ODIyJQQuKSvnKWMqCOKbVMD7FTBeNKAhOP0DIyXoPHovWXNWFbs9YUfuE5u0AZE2VN7TB9Fga1PlEXUt SIIBSIhlXI9wlsTxSQJiFv2TB1kCFnazVFA7CeK0SPn5UkKqSRA3DMUuJEIwGLRdXEzpXoYcPM7pKVN0 TPR0BQPnWoi6MPYjGYeaMqRrLPIiVlCuI8FhSML3Lj IzWP2POz3WNiX5ZCU6bEWcAq2FVKG8NloORuHpAS2OEUx= ID Date Data Source [id number] 09/14/2020 04:25:50 AM [facility] Name Value Range Interpretation Code Description Data Maura rce(s) Supporting Document(s) Leukocytes [#/volume] in Blood by Automated count 16.9 10*3/uL 4-10 H [facility] Erythrocytes [#/volume] in Blood by Automated count 4.73 10*6/uL 4.1- 5.3 [facility] Hemoglobin [Mass/volume] in Blood 13.7 g/dL 11.5-15.5 [facility] Hematocrit [Volume Fraction] of Blood by Automated count 41.6 % 3 6-45 [facility] Erythrocyte mean corpuscular volume [Entitic volume] by Auto mated count 88.0 fL 80-96 [facility] Erythrocyte mean corpuscular hemoglobin [Entitic mass] by Automated count 28.9 pg 27-33 [facility] Erythrocyte mean corpuscular hemoglobin concentration [Mass/volume] by Automated count 32.9 g/dL [facility].0-[facility] width [Ratio] by Automated count 15.1 % 11.5-14.5 H [facility] Platelets [#/volume] in Blood by Automated count 356 10*3/uL 150-400 [facility] ID Date Data Source [id number] 09/14/2020 04:47:27 AM [facility] Name Value Range Interpretation Code Description Data Maura rce(s) Supporting Document(s) Bicarbonate [Moles/volume] in Serum 26 mmol/L 22-29 [facility] Chloride [Moles/volume] in Serum or Plasma 102 mmol/L 98-107 [facility] Creatinine [Mass/volume] in Serum or Plasma 0.74 mg/dL 0.50-0.90 [facility] Glucose [Mass/volume] in Serum or Plasma 139 mg/dL 70-140 [facility] Potassium [Moles/volume] in Serum or Plasma 3.3 mmol/L 3.4-5.1 L [facility] Sodium [Moles/volume] in Serum or Plasma 141 mmol/L 136-145 [facility] Urea nitrogen [Mass/volume] in Serum or Plasma 15 mg/dL 6-20 [facility] Anion gap 3 in Serum or Plasma 13 mmol/L 8-15 [facility] Osmolality of Serum or Plasma by calculation 295 mosm/kg 275-300 [facility] Creatinine/Urea nitrogen [Mass Ratio] in Serum or Plasma 21 [facility] Calcium [Mass/volume] in Serum or Plasma 9.7 mg/dL 8.6-10.0 [facility] Glomerular filtration rate/1.73 sq M pre dicted among non-blacks [Volume Rate/Area] in Serum or Plasma by Creatinine-based formula (MDRD) >6 0 [facility] Glomerular filtration rate/1.73 sq M pre dicted among blacks [Volume Rate/Area] in Serum or Plasma by Creatinine-based formula (MDRD) >60 [facility] ID Date Data Source [id number] 09/14/2020 04:47:27 AM [facility] Name Value Range Interpretation Code Description Data Maura rce(s) Supporting Document(s) Magnesium [Mass/volume] in Serum or Plasma 2.0 mg/dL 1.6-2.6 [facility] ID Date Data Source [id number] 09/14/2020 04:47:27 AM [facility] Name Value Range Interpretation Code Description Data Maura rce(s) Supporting Document(s) Phosphate [Mass/volume] in Serum or Plasma 3.5 mg/dL 2.5-4.5 [facility] ID Date Data Source [id number] 09/13/2020 06:32:00 PM [facility] Name Value Range Interpretation Code Description Data Maura rce(s) Supporting Document(s) Respiratory specimen severe acute respir atory syndrome coronavirus 2 (SARS-CoV-2) RNA Negative (qualifier value) [facility] This lab was ordered by [facility] Veronica luu and reported by [facility]. ID Date Data Source [id number] 09/13/2020 07:12:00 PM [facility] Performed by: PAIRAControl Line Present ? YCOVID Screen Result: NEGATIVENegative results should be treated as presumptive and, if inconsistent with clinical signs and symptoms or necessary for patient management, should be tested with different authorized or cleared molecular tests. Negative results do not preclude SARS-CoV-2 infection and should not be used as the sole basis for patient management decisions. Negative results should be considered in the context of a patients recent exposures, history and the presence of clinical signs and symptoms consistent with COVID-19. This test has not been FDA cleared or approved; this test has been authorized by FDA under an Emergency Use Authorization for use by laboratories certified under the Clinical Laboratory Improvement Amendments of 1988 (CLIA), 42 U.S.C. 263a, to perform moderate complexity/high complexity tests and at the Point of Care (POC), i.e., in patient care settings operating under a CLIA Certificate of Waiver, Certificate of Compliance, or Certificate of Accreditation. Factsheets for healthcare providers: https://www.fda.gov/media/476602/download Factsheets for patients: https://www.fda.gov/media/213006/download The ID NOW Instrument is a rapid molecular in vitro diagnostic test utilizing an isothermal nucleic acid amplification technology intended for the qualitative detection of nucleic acid from the SARS-CoV-2 viral RNA. THIS IS A STATE REPORTABLE COMMUNICABLE DISEASE. Manual entry verified by Hernesto Ramsey 09/13/201910 Name Value Range Interpretation Code Description Data Maura rce(s) Supporting Document(s) ID Date Data Source [id number] 09/13/2020 07:19:00 PM EST [facility] Name Value Range Interpretation Code Description Data Maura rce(s) Supporting Document(s) Color,Urine Yellow Normal (applies to non-numeric resu lts) [facility] Clarity,Urine Clear Normal (applies to non-numeric re sults) [facility] Specific [place],Urine 1.001-1.030 Normal (applies to non- numeric results) [facility] PH,Urine 5.0-8.0 Normal (applies to non-numeric resul ts) [facility] Protein,Urine Negative [facility] Glucose,Urine (UA) Negative Normal (applies to non-numer ic results) [facility] Ketones,Urine Negative [facility] Blood,Urine Negative Normal (applies to non-numeric resu lts) [facility] Bilirubin,Urine Negative Normal (applies to non-numeric results) [facility] Urobilinogen,Urine Norm 0.2-1 Normal (applies to non-numer ic results) [facility] Leukocyte Esterase,Urine Negative Normal (applies to non -numeric results) [facility] Nitrite,Urine Negative Normal (applies to non-numeric re sults) [facility] ID Date Data Source [id number] 09/13/2020 07:19:00 PM EST [facility] Name Value Range Interpretation Code Description Data Maura rce(s) Supporting Document(s) RBC,Auto Urine 0-2 Normal (applies to non-numeric r esults) [facility] WBC Urine Auto 0-10 Normal (applies to non-numeric r esults) [facility] Casts,Hyaline,Urine Auto 0-2 Normal (applies to non -numeric results) [facility] Bacteria Urine Auto None Seen Normal (applies to non-nume sangeetha results) [facility] Epithelial Cell Ur Auto None-Few Normal (applies to non- numeric results) [facility] ID Date Data Source [id number] 09/13/2020 04:06:00 PM EST [facility] Name Value Range Interpretation Code Description Data Maura rce(s) Supporting Document(s) White Blood Count 4.8-10.8 Above high normal [facility] Red Blood Count 3.68-5.22 Normal (applies to non-numeric results) [facility] Hemoglobin 11.2-15.7 Normal (applies to non-numeric resul ts) [facility] Hematocrit 34.1-44.9 Normal (applies to non-numeric resul ts) [facility] Mean Corpuscular Volume 81-99 Normal (applies to non- numeric results) [facility] Mean Corpuscular Hemoglobin 27.0-33.0 Normal (appli es to non-numeric results) [facility] Mean Corpuscular HGB Conc 32.0-36.0 Normal (applies to no n-numeric results) [facility] Red Cell Distribution Width 11.5-14.5 Above high normal [facility] Platelet Count 350 X10 3/uL 130-450 Normal (applies to non-numeric results) [facility] Mean Platelet Volume 9.5-12.7 Below low normal [facility] Imm Grans% (AUTO) 0 % 0-2 Normal (applies to non-numeri c results) [facility] Neutrophils % (AUTO) 91 % 40-75 Above high normal [facility] Lymphocytes % (AUTO) 5 % 21-46 Below low normal [facility] Monocytes % (AUTO) 4 % 5-12 Below low normal [facility] Eosinophils % (AUTO) 0 % 1-5 Below low normal [facility] Basophils % (AUTO) 0 % 0-1 Normal (applies to non-numer ic results) [facility] Imm Grans# (AUTO) 0.0-0.5 Normal (applies to non-numeri c results) [facility] Neutrophils # (AUTO) 1.5-8.1 Above high normal [facility] Lymphocytes # (AUTO) 1.0-3.1 Below low normal [facility] Monocytes # (AUTO) 0.2-1.3 Normal (applies to non-numer ic results) [facility] Eosinophils# (AUTO) 0.0-0.5 Normal (applies to non-nume sangeetha results) [facility] Basophils # (AUTO) 0.0-0.1 Normal (applies to non-numer ic results) [facility] Slide Reviewed By Normal (applies to non-numeri c results) [facility] Slide has been reviewed and findings con firmed by a technologist/wildlife technician. ID Date Data Source [id number] 09/13/2020 03:50:00 PM EST [facility] Name Value Range Interpretation Code Description Data Maura rce(s) Supporting Document(s) Sodium 142 mmol/L 137-145 Normal (applies to non-numeric resul ts) [facility] Potassium 3.5-5.1 Below low normal [facility] Chloride 106 mmol/L 98-112 Normal (applies to non-numeric resul ts) [facility] Carbon Dioxide CO2 22.0-33.0 Normal (applies to non-numer ic results) [facility] Anion Gap 4.0-11.0 Normal (applies to non-numeric resul ts) [facility] BUN 14 mg/dL 7-17 Normal (applies to non-numeric resul ts) [facility] Creatinine 0.70-1.20 Normal (applies to non-numeric resul ts) [facility] GFR 79 mL/min >60 Normal (applies to non-numeric resul ts) [facility] Result based on MDRD formula. Glucose Level 127 mg/dL 74-99 Above high normal [facility] The reference range is only applicable w hen fasting. Calcium-Uncorrected 8.4-10.2 Normal (applies to non-nume sangeetha results) [facility] Corrected Calcium 8.4-10.2 Above high normal [facility] Bilirubin,Total 0.2-1.3 Normal (applies to non-numeric results) [facility] SGOT(AST) 11 U/L 14-36 Below low normal [facility] SGPT(ALT) 10 U/L 9-52 Normal (applies to non-numeric resul ts) [facility] Alkaline Phosphatase 68 U/L 38-126 Normal (applies to non-num joleen results) [facility] can increase Alkaline Phosp le vels up to 2 times the normal adult value. Normal values for children and adolescents are 2 to 3 times the normal adult value. Total Protein 6.3-8.2 Normal (applies to non-numeric re sults) [facility] Albumin 3.5-5.0 Below low normal [facility] ID Date Data Source [id number] 09/13/2020 03:50:00 PM [facility] Name Value Range Interpretation Code Description Data Maura rce(s) Supporting Document(s) Lipase 26 U/L 73-393 Below low normal [facility] ID Date Data Source [id number] 09/13/2020 03:50:00 PM [facility] Name Value Range Interpretation Code Description Data Maura rce(s) Supporting Document(s) C-Reactive Protein,Wide Range <3.00 Above high normal [facility] ID Date Data Source [id number] 09/13/2020 03:38:00 PM [facility] 3 hour post Lactic if elevated? Y Name Value Range Interpretation Code Description Data Maura rce(s) Supporting Document(s) Lactic Acid 0.4-2.0 Normal (applies to non-numeric resu lts) [facility] ID Date Data Source [id number] 09/15/2020 05:51:00 AM [facility] Name: SILVIA ALBERTO : 1965 A ge/Sex: 55F Ordering Provider: Haim Borrero IV, FNP Med Rec #: [id number] Reg Status: [facility] Room #: Date of Service: 09/13/20 Report Number: [id number] cc:SUMMER Salas Send Report To: [id number] CT/CT Abdomen & Pelvis w Con Reason for exam: PREVIOUS INTRA-ABDOMINAL ABSCESS, SURGICAL DRAINAGE AT OUTSIDE HOSPITAL FINDINGS: High grade mechanical small bowel obstruction is seen in the pelvis. Transition point of small bowel obstruction is likely secondary to contact with sigmoid colon diverticulitis. Evidence of fistulous communication between smallbowel and large bowel, however, not identified. There is a large amount of extraluminal air seen in the abdomen and pelvis raising concern for bowel perforation. There is a ventral hernia at the level of the umbilicus containinga large amount of transverse col on, however, evidence of bowel obstruction or incarceration within ventral hernia is not seen. Fatty infiltration of the liver is seen without hepatic mass or biliary dilatation. Spleen, pancreas, adrenal glands, and kidneys are unremarkable. There is no aortic aneurysm. Degenerative changes are noted in the spine and hips. Uterus, adnexa, and urinary bladder are unremarkable. At lung bases increased markings are seen likely atelectasis. However, basilar pneumonia cannot be excluded. In the intra-abdominal wall of the pelvis pigtail catheter is seen. There is noabscess collection seen related to pigtail catheter. IMPRESSION: Inflammatory changes sigmoid colon consistent with diverticulitis. Extraluminal air seen in peritoneum suggesting perforated diverticulitis. No omaira abscess seen. High grade distal small bowel obstruction is seen with transition point in the pelvis in proximity to sigmoid diverticulitis. Ventral hernia is seen at the level of the umbilicus containing segment of transverse colon with dimensions of 12.1 x 6.8 cm. Evidence of bowel obstruction or incarceration in ventral hernia not seen. Fatty liver without hepatic mass or biliary dilatation. Bibasilar opacities likely atelectasis, however, pneumonia cannot be excluded. While performing the above CT exam, the following dose reduction techniques wereused: *Automated exposure control *Adjustment of the mA and/or kV according to patient size *Use of iterative reconstruction technique CT Dose in mSv: 72 Contrast Agent in ml: Isovue 300 85CCS Method of Administration: ExistingIV REPORT SIGNATURE ON FILE Reported By: Gordon Cameron MD <Electronically signed by Gordon Cameron MD> 09/15/20 1155 Dictation Date/Time: 09/13/20 6037 Transcribed Date/Time: 09/15/20 0520 Special Needs Babysitter: BEBETO Name Value Range Interpretation Code Description Data Maura rce(s) Supporting Document(s) ID Date Data Source [id number] 09/12/2020 06:31:00 PM EST [facility] Exam Number: [id number] OF EXAMINATIO N: 09/12/2020 17:39 ESTCT ABD&PEL W/O IV OR ORAL CONTHISTORY: Recent pelvic drainage now with painComparison:08/28/2019TECHNIQUE: This CT exam was performed using the following dosereduction techniques: automated exposure control, adjustment of mAand/or kV according to the patient's size, and use of iterativereconstruction technique.Standard contiguous axial spiral imaging was obtained from the dome ofthe diaphragms through the symphysis pubis without oral contrast andwithout intravenous contrast administration and with coronalreformatting.FINDINGS:Lower thorax: There is lingular scarring. Mild atelectatic change inthe left lower lobe posteriorly. There are coronary calcifications.ABDOMEN:Liver: There is a calcified granuloma in the posterior superior aspectof the right hepatic lobe.Gallbladder and bile ducts: PostcholecystectomyPancreas: UnremarkableSpleen: UnremarkableAdrenals: No adrenal masses.Kidneys and ureters: Residual contrast in the renal calyces. Nohydronephrosis or perinephric soft tissue strandingStomach and bowel: There is a small hiatal hernia. The stomach isotherwise unremarkable. There is contrast in the colon from thepreviously done study. Several loops of mildly thickened jejunum. Noevidence of bowel obstruction. Thickened sigmoid colon is again notedwith cysts residual perisigmoidal.Appendix: The appendix is normal.Peritoneum/retroperitoneum:There is a pigtail drainage catheterentering from the left lower quadrant with the tip in the pelvisanteriorly the site of the previous collection.Lymph nodes:No adenopathySoft tissues:There is a prominent bowel containing umbilical herniawhich extends within the soft tissue pannus inferiorly. There is aloop of transverse colon within the hernia sac. 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 There isresidual soft tissue stranding.IMPRESSION:Post pelvic abscess drainage. The perisigmoidal collection issignificantly decreased in size. There is mild surroundinginflammatory change. The site of the main portion of the collections.Superior to the bladder there is now soft tissue density which likelyrepresents residua of the beck of the collection. Recommendfollow-up. The sigmoid colon remains thickened with surroundinginflammatory change. Recommend correlation with colonoscopy when thepatient is able.Electronically signed in PS360 by: Flo Tabares M.D. 09/12/2020 18:19EST Reported By: - FLO TABARES M.D. Signed By: FLO TABARES M.D. Name Value Range Interpretation Code Description Data Maura rce(s) Supporting Document(s) ID Date Data Source [id number] 09/12/2020 06:42:00 PM EST [facility] Name Value Range Interpretation Code Description Data Maura rce(s) Supporting Document(s) LIP 39.0 U/L 73-393 L [facility] ID Date Data Source [id number] 09/12/2020 06:42:00 PM EST [facility] Name Value Range Interpretation Code Description Data Maura rce(s) Supporting Document(s) GLU 146 mg/dL 70-110 H [facility] Patients taking Sulfasalazine may have f alsely depressedGlucose levels. Patients taking Sulfapyridine may havefalsely elevated Glucose levels. Patients should be drawnfor Glucose before the initial administration of eitherdrug. BUN 12 mg/dL 7-23 [facility] CRE 0.788 mg/dL 0.500-1.300 [facility] GFR > 60 mL/min [facility] CHLORIDE 105 mmol/L 99-110 [facility] NA 142 mmol/L 136-147 [facility] POTASSIUM 3.3 mmol/L 3.5-5.1 [facility] TCO2 31 mmol/L 20-33 [facility] ANION GAP 9.3 10.0-20.0 [facility] CA 9.5 mg/dL 8.3-10.7 [facility] ALKALINE PHOS 64 U/L 45-117 [facility] TP 7.4 g/dL 6.0-7.8 [facility] ALB 2.9 g/dL 3.5-5.0 [facility] ESRD Dialysis patient Albumin reference range: 2.9-4.4 g/dL GL 4.5 g/dL 2.3-3.5 H [facility] A/G 0.6 1.0-2.5 [facility] T. BILIRUBIN 0.5 mg/dL 0.1-1.1 [facility] The Dimension [place] Total Bilirubin is n ot recommended forpatients undergoing treatment with eltrombopag (Promacta)due to the potential for falsely elevated results. ALTI 14 U/L 6-54 [facility] Patients taking Sulfasalazine and/or Sul fapyridine may havefalsely depressed ALT levels. Patients should be drawn forALT before the initial administration of either drug. AST 10 U/L 6-38 [facility] Patients taking Sulfasalazine and/or Sul fapyridine may havefalsely depressed AST levels. Patients should be drawn forAST before the initial administration of either drug. ID Date Data Source [id number] 09/12/2020 06:23:00 PM EST [facility] Name Value Range Interpretation Code Description Data Maura rce(s) Supporting Document(s) WBC 9.97 x10E3/uL 4.0-10.5 [facility] RBC 4.67 x10E6/uL 4.20-5.40 N [facility] Hemoglobin 13.4 g/dL 12.0-16.0 [facility] Hematocrit 41.7 % 37.0-47.0 [facility] MCV 89.3 fL 81.0-99.0 [facility] MCH 28.7 pg 27.0-31.0 [facility] MCHC 32.1 g/dL 32.7-35.6 [facility] RDW 14.3 % 11.5-14.0 H [facility] Platelet count 368 x10E3/uL 150-450 N [facility] ital MPV 9.0 fl 6.9-9.5 N [facility] Neutrophils 83.2 % 34-64 H [facility] Lymphocytes 10.0 % 25-45 L [facility] Monocytes 6.0 % 1.7-10.6 [facility] Eosinophils 0.2 % 0.4-7.0 L [facility] Basophils 0.2 % 0.1-2.0 [facility] Imm. Gran. 0.4 % 0.1-2.0 [facility] Abs. Neutro. 8.29 x10E3/uL 1.2-7.6 [facility] Abs. Lymph. 1.00 x10E3/uL 1.0-3.5 [facility] Abs. Treasure. 0.60 x10E3/uL 0.1-1.0 [facility] Abs. Eosin. 0.02 x10E3/uL 0.1-0.7 [facility] Abs. Baso. 0.02 x10E3/uL 0.0-0.1 [facility] Abs. Imm. Gran. 0.04 x10E3/uL 0.0-0.1 N [facility] spital ANRBC% 0 % 0 [facility] ID Date Data Source [id number] 09/12/2020 07:10:00 PM EST [facility] Physician DocumentationClaxton-Jose Miller edical CenterName: Silvia SalazarleyAge: 55 yrsSex: FemaleDOB: 1965MRN: [id number] Date: 09/12/2020Time: 17:25Account#: [id number] MD: Ant Noonan Physician ToryJemimaDiselisabeth Summary:09/12/20 18:55Discharge OrderedLocation: Home Self Care ba1Gtjlpxb: new di3Tsgzkhtj: have improved uz6Mysjkjhvr: Improved dp0Qycycolcd- Abdominal pain, unsepcified ts3Xhasxgju: th4- With: Jett Noonan FNP-C- When: 2 - 3 days- Reason: Recheck today's complaints, Continuance of careDischarge Instructions:- Discharge Summary Sheet th4- ABDOMINAL PAIN, Unknown Cause, (Female) zo7Tucyp:- Medication Reconciliation th4- Medication Reconciliation Form - 2nd Copy th4HPI:08/2616:39 This 55 yrs old White Female presents to ER via Ambulance with rf0qzwxgoculj of Abdominal Pain.17:39 Patient comes the ER today for evaluation of abdominal pain. Patient th4has an abscess secondary to diverticulitis. A drain was placed todayunder CT guidance. She was doing fine until about an hour ago. Shegot up to go to the bathroom and noted severe pain, pressure, andcramping across the lower abdomen. She reports nausea but novomiting. No fever or recent illness. Nothing seems to make hersymptoms better or worse. She feels weak but not dizzy. No recentinjury or trauma. No shortness of breath. No chest pain. She haschronic diarrhea that is unchanged from baseline. She denies anyother problems or any other complaints..SUPERVISOR PUBLICATIONS:19:10 LMP N/A - Post-menopause zsHistorical:- Allergies: Codeine;- Home Meds:1. pantoprazole 40 mg oral grps once daily2. Vitamin D Oral daily3. Augmentin 875-125 mg Oral tab 1 tab every 12 hours4. Xarelto 20 mg oral tab 1 tab once daily5. letrozole 2.5 mg oral tab 1 tab once daily- PMHx: factor 5 lieden; Diverticulitis; DVT;- PSHx: Cholecystectomy;- Immunization history: Flu vaccine is not up to date.- Social history: Smoking status: Patient states was never smoker of[employer]. ETOH status Denies use of ETOH.- Advance Directives:: None.ROS:17:40 Constitutional: Negative for chills, fever. Eyes: Negative for acute qn9kqhvhau. ENT: Negative for nasal discharge, rhinorrhea, sinuscongestion. Neck: Negative for acute changes. Cardiovascular:Negative for chest pain. Respiratory: Negative for shortness ofbreath. Abdomen/GI: Positive for abdominal pain, nausea, diarrhea,Negative for vomiting, constipation. Back: Negative for acutechanges. : Negative for urinary symptoms. MS/extremity: Negativefor acute changes. Skin: Negative for rash. Neuro: Positive forweakness, Negative for dizziness, headache. Hematologic/Lymphatic:Negative for abnormal bleeding.Exam:17:41 Constitutional: This is a well developed, well nourished patient who th4is awake, alert, and in no acute distress. Head/Face: Normocephalic,atraumatic.17:41 Neck: External neck: is normal, ROM/movement: is normal, is supple.17:41 Cardiovascular: Rate: normal, Rhythm: regular, Heart sounds: normal,normal S1and S2, no murmur.17:41 Respiratory: the patient does not display signs of respiratorydistress, Respirations: normal, Breath sounds: are normal, clearthroughout.17:41 Abdomen/GI: Inspection: Surgical drain noted in the left lowerquadrant draining bloody material, Bowel sounds: normal, Palpation:soft, moderate abdominal tenderness, in all quadrants.17:41 Back: pain, is absent, ROM is normal, CVA tenderness, is absent.17:41 Musculoskeletal/extremity: Extremities: no acute changes.17:41 Skin: Appearance: Color: normal in color, Temperature: warm,Moisture: dry.17:41 Neuro: Orientation: is normal, Mentation: is normal.17:41 Psych: Behavior/mood is pleasant, cooperative.Vital Signs:17:30 BP 123 / 64; Pulse 66; Resp 14; Temp 97.7(O); Pulse Ox 98% ; Weight jk3439.7 kg; Pain 5/10;18:40 BP 118 / 71; Pulse 64; Resp 17; Pulse Ox 98% ; zs19:09 BP 127 / 84; Pulse 71; Resp 16; zsMDM:17:30 Patient medically screened. th418:55 Data reviewed: vital signs, nurses notes, lab test result(s), ok5xnsbpctewp studies, CT scan. ED course: Patient remained stable inthe ER. Patient with sudden episode of lower abdominal pain as above.Given that she had a surgical drain placed today, CT imaging was doneto further evaluate. No acute process was seen on the CT scan. Someinflammatory changes were seen and probably related to the underlyingprocedure. Patient does have a large hernia but there is no evidenceof strangulation. Symptoms are much better at this time in the ER.She did receive 1 dose of pain medicine. Patient was reassured. Nofurther work-up or treatment is needed at this time. She isappropriate for discharge. We discussed return precautions. Patientis well-appearing, well-hydrated, not ill or toxic in any way..08/2616:39 Order name: CBC with diff; Complete Time: 18:42 :39 Order name: CMP; Complete Time: 18:51 :39 Order name: Lipase; Complete Time: 18:51 :39 Order name: UA :39 Order name: CT Abdomen and Pelvis - without IV or oral; Complete so1Nvqy: 18:510/2616:39 Order name: NPO; Complete Time: 17:45 :39 Order name: Saline Lock; Complete Time: 17:45 :39 Order name: Vital Signs per policy; Complete Time: 17:56 [id number] Medications:17:45 Drug: NS 0.9% 1000 ml [sodium chloride 0.9 % injection solution] klpRoute: IV; Rate: bolus; Site: left antecubital;17:52 Drug: HYDROmorphone (PF) 0.5 mg Route: IVP; Site: left antecubital; klpSignatures:Dispatcher [employer] Manda Alexandra RN RN klpHowland, Todd, MD MD as8FeejyoVal coto RN RN ef1 Name Value Range Interpretation Code Description Data Maura rce(s) Supporting Document(s) ID Date Data Source [id number] 09/12/2020 07:10:00 PM EST [facility] Nurse[facility] NotesCla[facility] Fadi terName: Silvia AlbertoAge: 55 yrsSex: FemaleDOB: 1965MRN: [id number] Date: 09/12/2020Time: 17:25Account#: [id number] MD: Ney Noonaniagnosis: Abdominal pain, unsepcifiedPresentation:08/2616:26 Presenting complaint: EMS states: diagnosed w/ diverticulitis w/ aq6idgwpwa had a drain put in today by Dr. Griffith and now having abd. pain.Coronavirus Screening: Have you traveled internationally or hadcontact with someone that has traveled and has been ill in the past 3weeks? no Have you traveled to a location with widespread or ongoingCOVID-19 community spread or outside of [facility]? no Flu-likesymptoms reported in the last 14 days: no. Have you had close contactwith confirmed or suspected COVID-19 case? no Have you been diagnosedwith COVID-19 in the past 30 days? no Are you currently on quarantineby Public Health? no Do you live in a setting where a large of amountof people live, such as halfway, family care, intermediate, etc? no.Communic able Disease Screen: Negative for fever>/= 100 degreesFahrenheit. Communicable disease screen is negative. (-) rash orunusual skin lesion (-) travel/contact with traveler (-) respiratorysymptoms.17:26 Acuity: Triage 3 ef117:26 Method Of Arrival: Ambulance: [facility] ef117:27 Acuity Assignment: Triage 3 [id number] Assessment:17:29 General: Appears uncomfortable, Behavior is cooperative. Sepsis fc6Hjcusbnoi: (1)Signs/symptoms infection Sepsis is not suspected. Pain:Complains of pain in abdomen. PSS-3 Now I'm going to ask you somequestions that we ask everyone treated here, no matter what problemthey are here for. It is part of the hospital's policy and it helpsus to make sure we are not missing anything impor tant. Over the past2 weeks, have you felt down, depressed, or hopeless? No. Over thepast 2 weeks, have had thoughts of killing yourself? No. In yourlifetime, have you ever attempted to kill yourself? No. 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 pantoprazole 40 mg oral grps once daily2. Vitamin D Oral daily3. Augmentin 875-125 mg Oral tab 1 tab every 12 hours4. Xarelto 20 mg oral tab 1 tab once daily5. letrozole 2.5 mg oral tab 1 tab once daily- PMHx: factor 5 lieden; Diverticulitis; DVT;- PSHx: Cholecystectomy;- Immunization history: Flu vaccine is not up to date.- Social history: Smoking status: Patient states was never [facility]. ETOH status Denies use of ETOH.- Advance Directives:: None.Screenin:34 Abuse screen: Denies threats or abuse. Nutritional screening: No klpdeficits noted. Offer of HIV testing: patient was previously offeredscreening. Fall Risk None identified.Assessment:17:32 Pain: Complains of pain in abdomen Quality of pain is described as klpcrampy. Sepsis Screening: Sepsis is not suspected at this time. Derm:Skin is pink, warm & dry. General: Reports had drain placed today inabd for abscess. started with crampy abd pain worsening throughoutday. Neuro: Level of Consciousness is awake, alert. Respiratory: Nodeficits noted. Respi ratory effort is unlabored. GI: Bowel soundshypoactive in right upper quadrant, left upper quadrant, right lowerquadrant and left lower quadrant Abd is soft X 4 quads Abd is tenderto palpation in left upper quadrant and left lower quadrant drydressing noted to LLQ.17:34 : Denies burning with urination, urgency. klp18:40 Reassessment: Patient appears in no apparent distress at this time. zsPatient states feeling better. Patient states symptoms have improved.Vital Signs:17:30 BP 123 / 64; Pulse 66; Resp 14; Temp 97.7(O); Pulse Ox 98% ; Weight kx1234.7 kg; Pain 5/10;18:40 BP 118 / 71; Pulse 64; Resp 17; Pulse Ox 98% ; zs19:09 BP 127 / 84; Pulse 71; Resp 16; zsED Course:17:25 Patient arrived in ED. ef117:25 Jett Noonan FNP-C is Private Physician. ef117:27 Triage completed. ef117:29 Jemima Spears MD is Attending Physician. th417:32 Patient placed in exam room. klp17:33 Patient has correct armband on for positive identification. Placed in ul9jgao. Bed in low position. Call light in reach. Side rails up X2.Pulse ox on. NIBP on. Verbal reassurance given. Pillow given. Head ofbed elevated.17:[address] klp17:55 No Physician assisted procedures completed. Inserted saline lock: 20 zsgauge in left antecubital area and blood collected.18:40 No apparent distress. Resting quietly. Awaiting disposition, Awaiting zstest results.18:54 Jett Noonan FNP-C is Referral Physician. th419:09 Discontinued lock intact, pressure dressing applied, No zsredness/swelling at site.Administered Medications:17:45 Drug: NS 0.9% 1000 ml [sodium chloride 0.9 % injection solution] klpRoute: IV; Rate: bolus; Site: left antecubital;17:52 Drug: HYDROmorphone (PF) 0.5 mg Route: IVP; Site: left antecubital; klpOutcome:18:55 Discharge ordered by . th419:09 Disposition: Discharged to home ambulatory. zs19:09 Condition: stable.19:09 Discharge instructions given to patient, Instructed on dischargeinstructions, follow up and referral plans. Demonstratedunderstanding of instructions.19:09 Discharge Assessment: Patient verbalized understanding of dispositioninstructions. Patient has no functional deficits.19:10 Patient left the ED. zsSignatures:Manda Thomas RN RN klpShantie, Zachary, RN RN zsHowland Jemima, MD MD [id number], EVELINA Neal RN ef1 Name Value Range Interpretation Code Description Data [facility] rce(s) Supporting Document(s) ID Date Data Source [id number] 09/12/2020 01:21:00 PM EST [facility] Exam Number: [id number] OF EXAMINATIO N: 09/12/2020 10:19 ESTCT PELVIS W/ IV & ORAL CONTRASHISTORY: AbscessTECHNIQUE:This CT exam was performed using the following dose reductiontechniques: automated exposure control, adjustment of mA and/or kVaccording to the patient's size, and use of iterative reconstructiontechnique.Standard contiguous axial spiral imaging was obtained with oral andintravenous contrast administration and with coronal reformatting.FINDINGS:Under local anesthesia aseptic technique and CT guidance a 14 Frenchvan Monty catheter was advanced into the center of the pelvicab scess. Patient tolerated procedure well and no complicationsdeveloped.IMPRESSION:Successful CT-guided abscess drainage catheter placement.Electronically signed in PS360 by: Jarvis Wilson M.D. 09/12/19 2113:09 EST Reported By: Henrry WILSON M.D. Signed By: Emmett WILSON M.D. Name Value Range Interpretation Code Description Data [facility] rce(s) Supporting Document(s) ID Date Data Source [id number] 09/12/2020 11:38:00 AM EST [facility] Exam Number: [id number] OF EXAMINATIO N: 09/12/2020 10:30 ESTCT NEEDLE BX/ASPIRATIONHISTORY: Pelvic abscessFull consent with description of risks, benefits and alternatives wasobtained.FINDINGS:Preliminary CT scan of the abdomen reveals a deep pelvic abscess witha narrow window for access. We therefore proceeded with the procedure.IMPRESSION:Persistent pelvic abscess. We therefore proceeded with the procedureElectronically signed in PS360 by: Jarvis Wilson M.D. 111:26 EST Reported By: - Emmett WILSON M.D. Signed By: Emmett WILSON M.D. Name Value Range Interpretation Code Description Data Maura rce(s) Supporting Document(s) ID Date Data Source [id number] 09/15/2020 05:51:00 PM EST [facility] Cc: Vira (AB) FINE NEEDLE ASP IRATION, SIGMOID-PELVIS ABSCESS DRAINAGE: - INNUMERABLE PMNS WITH VEGETABLE MATERIAL, FECAL DEBRIS AND BACTERIAL COLONIES - NEGATIVE FOR MALIGNANT CELLS CODE/S: [id number] . URINE CATHERIZED URINE VOIDED SPUTUM 1 NEEDLE FLUSHED WITH CYTORICH RED/PREP/CB/BRONCHIAL BRUSH BRONCHIAL WASH GASTRIC PLEURAL FLUID PERITONEAL FLUID PERICARDIAL FLUID CSF CELL BLOCK OTHER (SPECIFY) SEMEN ANALYSIS FINE NEEDLE ASPIRATION Sigmoid-pelvis abcess drainageCERVICAL Selective cellular enrichment preps and cell block reviewed.Diagnosis supported by microsc opic examination. REPORT SIGNED: Nette Mustafa DO 09/15/20 Name Value Range Interpretation Code Description Data Maura rce(s) Supporting Document(s) ID Date Data Source [id number] 09/15/2020 11:31:00 AM EST [facility] SIGMOID-PELVIS ABCESS DRAINAGEWBCS IN MO DERATE NUMBERSGRAM NEGATIVE BACILLI LARGE NUMBERSGRAM POSITIVE COCCI IN PAIRS SMALL NUMBERSGRAM-POSITIVE COCCI IN CHAINS SMALL NUMBERS Name Value Range Interpretation Code Description Data Maura rce(s) Supporting Document(s) ID Date Data Source [id number] 09/15/2020 11:31:00 AM EST [facility] SIGMOID-PELVIS ABCESS DRAINAGE Name Value Range Interpretation Code Description Data Maura rce(s) Supporting Document(s) ORGANISM [facility] COLONY COUNT N [facility] ID Date Data Source [id number] 09/12/2020 10:04:00 AM EST [facility] Does the pt. have a limb restriction? N Name Value Range Interpretation Code Description Data Maura rce(s) Supporting Document(s) GFR > 60 mL/min N [facility] ID Date Data Source [id number] 09/12/2020 10:04:00 AM EST [facility] Does the pt. have a limb restriction? N Name Value Range Interpretation Code Description Data Maura rce(s) Supporting Document(s) CRE 0.759 mg/dL 0.500-1.300 N [facility] ID Date Data Source [id number] 09/12/2020 09:46:00 AM EST [facility] Does the pt. have a limb restriction? N Name Value Range Interpretation Code Description Data Maura rce(s) Supporting Document(s) WBC 6.92 x10E3/uL 4.0-10.5 [facility] RBC 4.77 x10E6/uL 4.20-5.40 [facility] Hemoglobin 13.6 g/dL 12.0-16.0 [facility] Hematocrit 42.9 % 37.0-47.0 [facility] MCV 89.9 fL 81.0-99.0 [facility] MCH 28.5 pg 27.0-31.0 [facility] MCHC 31.7 g/dL 32.7-35.6 [facility] RDW 14.5 % 11.5-14.0 H [facility] Platelet count 370 x10E3/uL 150-450 [facility] ital MPV 8.8 fl 6.9-9.5 [facility] Neutrophils 64.0 % 34-64 [facility] Lymphocytes 21.0 % 25-45 L [facility] Monocytes 11.7 % 1.7-10.6 H [facility] Eosinophils 2.2 % 0.4-7.0 [facility] Basophils 0.7 % 0.1-2.0 [facility] Imm. Gran. 0.4 % 0.1-2.0 [facility] Abs. Neutro. 4.43 x10E3/uL 1.2-7.6 N [facility] Abs. Lymph. 1.45 x10E3/uL 1.0-3.5 [facility] Abs. Treasure. 0.81 x10E3/uL 0.1-1.0 N [facility] Abs. Eosin. 0.15 x10E3/uL 0.1-0.7 N [facility] Abs. Baso. 0.05 x10E3/uL 0.0-0.1 N [facility] Abs. Imm. Gran. 0.03 x10E3/uL 0.0-0.1 N [facility] ANRBC% 0 % 0 N [facility] ID Date Data Source [id number] 09/11/2020 03:09:00 PM EST [facility] Exam Number: [id number] OF EXAMINATIO N: 09/11/2020 6:54 ESTDIGITAL MAMMO TOM ROUTINEHISTORY: ScreeningHistory of breast cancer.Comparison is made to prior study dated 09/10/2019.2-D bilateral digital mammogram in the CC and MLO planes wereperformed with supplemental 3-D tomosynthesis of both breasts.The images were analyzed through the latest version of the [employer] imagecheckJLGOV computer aided diagnosis system.The patient states that her last clinical breast examination waspt2019.Craniocaudal and oblique lateral views of the breasts were obtained.(B) There are scattered areas of fibroglandular density. There is nodominant mass, suspicious clustered calcification, or non surgicalarchitectural distortion.IMPRESSION:Overall no significant interval change.Final assessment of breast composition BIRAD classification (B) Thereare scattered areas of fibroglandular density.BIRAD CATEGORY 2 - BENIGN FINDINGS, ROUTINE YEARLY MAMMOGRAPHICFOLLOW-UP RECOMMENDED.10-15% of cancers are not identified by mammography. This usuallyoccurs when the mass is of the same radiographic density as thesurrounding breast tissue, emphasizing the importance of breast selfexamination (BSE) and physical examination. A normal mammogram shouldnot delay biopsy if a suspicious mass or abnormal findings are presentupon physical examination.Electronically signed in PS360 by: Jarvis Wilson M.D. 114:57 EST Reported By: Henrry WILSON M.D. Signed By: Emmett WILSON M.D. Name Value Range Interpretation Code Description Data Maura rce(s) Supporting Document(s) ID Date Data Source [id number] 09/10/2020 09:34:00 PM EST [facility] Name Value Range Interpretation Code Description Data Maura rce(s) Supporting Document(s) COVID19 RHEONIX Negative NEGATIVE [facility] The Rheonix COVID-19 MDx Assay is an end point RT-PCR assayintended for the qualitative detection of nucleic acid iegdVPPV-ZyG-8 virus. Positive results are indicative of thepresence of SARS-CoV-2 RNA; clinical correlation withpatient history and other diagnostic information isnecessary to determine patient infection status. Negativeresults do not preclude SARS-CoV-2 infection and should notbe used as the sole basis for patient management decisions. The Rheonix MDx Assay is only for use under the Food andDrug Administration's Emergency Use Authorization. ID Date Data Source [id number] 08/28/2020 01:30:00 PM EST [facility] Exam Number: [id number] OF EXAMINATIO N: 08/28/2020 12:53 ESTCT ABD&PEL WITH IV CONT ONLYHISTORY: Dyspepsia. Sigmoid diverticulitisTECHNIQUE:This CT exam was performed using the following dose reductiontechniques: automated exposure control, adjustment of mA and/or kVaccording to the patient's size, and use of iterative reconstructiontechnique.Standard contiguous axial spiral imaging was obtained from the dome ofthe diaphragms through the symphysis pubis without oral contrast andwith intravenous contrast administration and with coronalreformatting.FINDINGS:Lower thorax: UnremarkableABDOMEN:Liver: Moderate fatty infiltrationGallbladder and bile ducts: CholecystectomyPancreas: UnremarkableSpleen: UnremarkableAdrenals: UnremarkableKidneys and ureters: UnremarkableStomach and bowel: Ventral hernia with herniated portion of transversecolon without any definite evidence for strangulation or obstruction.Again identified is acute diverticulitis of the mid sigmoid. Thepreviously noted peridiverticular abscess is once again identifiedwith inspissated material but grossly unchanged in size.Appendix: No appendicitisPELVIS:Bladder: Unopacified and nondistended therefore unable to evaluateReproductive: Grossly unremarkableNo free fluid or free airIMPRESSION:Perforated diverticulitis with peridiverticular abscess is unchangedin size now with inspissated material within its lumen.Ventral hernia without interval change.Electronically signed in PS360 by: Jarvis Wilson M.D. 113:17 EST Reported By: Henrry WILSON M.D. Signed By: Emmett WILSON M.D. Name Value Range Interpretation Code Description Data Maura rce(s) Supporting Document(s) ID Date Data Source [id number] 08/26/2020 04:07:00 PM EST [facility] Performed at: [facility] [place] [id number] Director: Deb Smith MD, Phone: [phone] Name Value Range Interpretation Code Description Data Maura rce(s) Supporting Document(s) DEAMI.GLIAD [facility] - 19 Weak Positive 20 - 30 Moderate to Strong Positive >30 DEAMI.GLIAD IgG 4 units 0-19 [facility] 0 - 19 Weak Positive 20 - 30 Moderate to Strong Positive >30 TG IgA <2 U/mL 0-3 [facility] Negative 0 - 3 Weak Positive 4 - 10 Positive >10 Tissue Transglutaminase (tTG) has been identified as the endomysial antigen. Studies have demonstr- ated that endomysial IgA antibodies have over 99% specificity for gluten sensitive enteropathy. TG IgG 5 U/mL 0-5 [facility] Negative 0 - 5 Weak Positive 6 - 9 Positive >9 ENDOMYSIAL IgA Negative Negative [facility] IgA 458 mg/dL 87-352 [facility] ID Date Data Source [id number] 08/25/2020 02:00:00 PM EST [facility] Name Value Range Interpretation Code Description Data Maura rce(s) Supporting Document(s) VITAMIN D 25 61 ng/mL 30-100 [facility] ID Date Data Source [id number] 08/25/2020 01:07:00 PM EST [facility] Name Value Range Interpretation Code Description Data Maura rce(s) Supporting Document(s) GFR > 60 mL/min [facility] ID Date Data Source [id number] 08/25/2020 01:07:00 PM EST [facility] Name Value Range Interpretation Code Description Data Maura rce(s) Supporting Document(s) CRE 0.930 mg/dL 0.500-1.300 [facility] ID Date Data Source [id number] 08/15/2020 08:30:00 AM EST [facility] Name Value Range Interpretation Code Description Data Maura rce(s) Supporting Document(s) SARS coronavirus 2 RNA Not Detected [facility] This lab was ordered by [place] [facility] and reported by [facility]. ID Date Data Source [id number] 08/16/2020 06:11:00 PM EST [facility] Performed at: [id number] [place], [place] [id number] Director: Deedee Thakur PhD, Phone: [phone] Name Value Range Interpretation Code Description Data Maura rce(s) Supporting Document(s) SARS-CoV-2, MILEY Not Detected Not Detected [facility] This nucleic acid amplification test was developed and itsperformance characteristics determined by [facility]. Nucleic acid amplification tests include RT-PCR and TMA. This test has not been FDA cleared orapproved. This test has been authorized by FDA under anEmergency Use Authorization (EUA). This test is onlyauthorized for the duration of time the declaration thatcircumstances exist justifying the authorization of theemergency use of in vitro diagnostic tests for detection efYXLY-DcR-4 virus and/or diagnosis of COVID-19 infectionunder section 564(b)(1) of the Act, 21 U.S.C. 360bbb-3(b)(1), unless the authorization is terminated or revokedsooner.When diagnostic testing is negative, the possibility of afalse negative result should be considered in the contextof a patient's recent exposures and the presence ofclinical signs and symptoms consistent with COVID-19. Anindividual without symptoms of COVID-19 and who is notshedding SARS-CoV-2 virus would expect to have a negative(not detected ) result in this assay.Methodology: Nucleic Acid Amplification (MILEY) ID Date Data Source [id number] 07/09/2020 02:48:[address] [id number] CONSULT REPORTPATIENT NAME: SILVIA ALBERTO MR#: [id number] PHYSICIAN:CONSULTING PHYSICIAN: Janine OLVERA,Graciela DATE: 07/09/20 RM#: ERCONSULTING DATE: 07/09/20 PATIENT : 63EVALUATION TIME: 1457HistoryReason for consultmanagement of diverticular abscessRequested byERChief Complaint/Admit Reasondiverticular abscess.History of Presenting [id number] with diverticulitis who is being managed by Dr. Pineda presented to [facility] at his request for consideration of percutaneous drainage of a 5cm pelvicabscess identified on repeat Ct scan earlier this week. I spoke with Dr. Val ROWLAND in regards to her care, and she presented to the ER as instructed forevaluation - currently her pain symptoms are much improved; however, shecontinues to have 2-3 episodes of loose stool daily. She denies fever, chills,N/V. She had been placed on a cipro/flagyl oral antibiotic regimen which shecompleted prior to the repeat scan which showed a 5cm abscess amenable todrainage in the pelvis. She was taken to radiology today for a followup CTwhich per Dr. Philip's report to me has decreased in size to 2cm and isnot appropriate for an IR drain today. He suggests that this collection may beauto-draining back into the colon.She has an incarcerated partially reducible umbilical hernia which is mildlytender to manipulation.She has not had a colonoscopy but was scheduled in July, and will likely berescheduled pending expectant managment of the diverticular process.Past Medical/Surgical HistoryPast Medical/Surgical HistoryMedical ProblemsBreast cancerDiabetesDiverticulitis of large intestine with abscessDVT (deep venous thrombosis)Factor 5 Leiden mutation, heterozygousIncarcerated umbilical herniaMorbid obesityS/P LEFT PARTIAL MASTECTOMYReconciled Home Med Listsee list. incl XareltoAllergiesCoded Allergies:codeine (From TYLENOL-CODEINE #3) (INCREASED HEART RATE 11/20/19)PT SAYS SHE DOESN'T LIKE TAKINGFamily history non-contribReview of SystemsConstitutionalReports: Weight loss (reported past, none recent). Denies: Pain, Fever, Chills, Sweats, Generalized weakness.SkinDenies: abrasion, bruising, contusion.RespiratoryDenies: dyspnea, hemoptysis.CardiovascularDenies: chest pain, dyspnea on exertion.GastrointestinalReports: abdominal pain (resolved, hernia), diarrhea. Denies: nausea, vomiting, constipation, melena, hematochezia.GenitorurinaryDenies: dysuria, hematuria.MusculoskeletalDenies: arthritis, extremity pain.HematologyDenies: adenopathy, bleeding.EndocrineReports: hyperglycemia.NeurologicalDenies: seizure, syncope.ExamVital SignsAVSSPhysical ExaminationGeneral Appearance no acute distress, afebrileCardiovascular regular rateRespiratory no distress, aerating wellAbdomen soft, hernia (incarcerated), mildly tender (at hernia, LLQ norenderness)Extremities no clubbing, no cyanosis, no edemaData ReviewLaboratory DataRecent Labs-48 hours07/09 1021 1130ChemistrySodium (136 - 147 mmol/L) 141Potassium (3.5 - 5.1 mmol/L) 3.6Chloride (99 - 110 mmol/L) 105Serum Bicarbonate (20 - 33 mmol/L) 30Anion Gap (10.0 - 20.0) 9.6 LBUN (7 - 23 mg/dL) 11Creatinine (0.500 - 1.300 mg/dL) 0.893Estimated GFR/1.73 m2 (mL/min) > 60Glucose (70 - 110 mg/dL) 112 HCalcium (8.3 - 10.7 mg/dL) 9.7Total Bilirubin (0.1 - 1.1 mg/dL) 0.7AST (6 - 38 U/L) 18ALT (6 - 54 U/L) 12Alkaline Phosphatase (45 - 117 U/L) 71Total Protein (6.0 - 7.8 g/dL) 8.0 HAlbumin (3.5 - 5.0 g/dL) 3.0 LGlobulin (2.3 - 3.5 g/dL) 5.0 HAlbumin/Globulin Ratio (1.0 - 2.5) 0.6 LLipase (73 - 393 U/L) 31.0 LHematologyWBC (4.0 - 10.5 x10E3/uL) 5.81RBC (4.20 - 5.40 x10E6/uL) 4.62Hgb (12.0 - 16.0 g/dL) 13.2Hct (37.0 - 47.0 %) 41.1MCV (81.0 - 99.0 fL) 89.0MCH (27.0 - 31.0 pg) 28.6MCHC (32.7 - 35.6 g/dL) 32.1 LRDW (11.5 - 14.0 %) 15.3 HPlt Count (150 - 450 x10E3/uL) 390MPV (6.9 - 9.5 fl) 9.0Immature Gran % (Auto) (0.1 - 2.0 %) 0.3Neut % (Auto) (34 - 64 %) 67.7 HLymph % (Auto) (25 - 45 %) 17.6 LMono % (Auto) (1.7 - 10.6 %) 11.7 HEos % (Auto) (0.4 - 7.0 %) 2.2Baso % (Auto) (0.1 - 2.0 %) 0.5Abs Immat Gran (auto) (0.0 - 0.1 x10E3/uL) 0.02Absolute Neuts (auto) (1.2 - 7.6 x10E3/uL) 3.93Absolute Lymphs (auto) (1.0 - 3.5 x10E3/uL) 1.02Absolute Monos (auto) (0.1 - 1.0 x10E3/uL) 0.68Absolute Eos (auto) (0.1 - 0.7 x10E3/uL) 0.13Absolute Basos (auto) (0.0 - 0.1 x10E3/uL) 0.03Nucleated RBC % (auto) (0 %) 0SerologyCOVID-19 (MILEY) (NEGATIVE) NEGATIVEUrinesUrine Color YellowUrine Appearance ClearUrine pH (5.0 - 8.0) 5.5Ur Specific [place] (1.010 - 1.025) 1.022Urine Protein (Negative) TraceUrine Ketones (NEGATIVE) NegativeUrine Blood (NEGATIVE) NegativeUrine Nitrite (Negative) NegativeUr Bilirubin Confirm (NEGATIVE) NegativeUrine Urobilinogen (0.2 - 1.0 mg/dL) 1.0Urine Leukocytes (Negative) 1+Urine RBC (NONE SEEN) 0-2 RB Cs/HPFUrine WBC (NONE SEEN) 3-5 WBCs/HPFUrine Bacteria (NONE SEEN) ModerateUrine Glucose (NEGATIVE) PijzlampRyhdxrkhbdki32/23 1130 URINE,CC: Urine Culture - RECDImagingDATE OF EXAMINATION: 07/09/2020 11:21 ESTCT PELVIS W/ NO IV OR ORALHISTORY: AbscessThis CT exam was performed using the following dose reductiontechniques: automated exposure control, adjustment of mA and/or kVaccording to the patient's size, and use of iterative reconstructiontechnique.Previously noted peridiverticular abscess has significantly decreasedin size from a prior measurement of approximately 5.5 cm in eachdimension to a current measurement of 2 x 2.5 cm, consistent withspontaneous outer drainage into the sigmoid colon.IMPRESSION:Significant interval decrease in the size of previously notedperidiverticular abscess as described above.Assessment/PlanDiagnosis/Problem1. Diverticulitis of large intestine with abscessA&PPt is currently medically stable and wishes to pursue outpatient treatment withoral antibiotics. I think this is reasonable. We discussed warning signs andsymptoms that would prompt return to the hospital and a change in managmentwith consideration for operative therapy for clinical deterioration.Rx for 2 weeks oral cipro and flagyl, with low residue diet and metamucil BIDfor loose stool.F/U Dr. Pineda in 2 weeks or sooner in office for repeat CT.DATE SIGNED: 07/09/20 Electronically SignedTIME SIGNED: [id number] GRACIELA MEHTA MD Name Value Range Interpretation Code Description Data Maura rce(s) Supporting Document(s) ID Date Data Source [id number] 07/09/2020 01:10:00 PM EST [facility] Exam Number: [id number] OF EXAMINATIO N: 07/09/2020 11:21 ESTCT PELVIS W/ NO IV OR ORALHISTORY: AbscessThis CT exam was performed using the following dose reductiontechniques: automated exposure control, adjustment of mA and/or kVaccording to the patient's size, and use of iterative reconstructiontechnique.Previously noted peridiverticular abscess has significantly decreasedin size from a prior measurement of approximately 5.5 cm in eachdimension to a current measurement of 2 x 2.5 cm, consistent withspontaneous outer drainage into the sigmoid colon.IMPRESSION:Significant interval decrease in the size of previously notedperidiverticular abscess as described above.Electronically signed in PS360 by: Jarvis Wilson M.D. 07/09/202012:58 EST Reported By: Henrry WILSON M.D. Signed By: Emmett WILSON M.D. Name Value Range Interpretation Code Description Data Maura rce(s) Supporting Document(s) ID Date Data Source [id number] 07/09/2020 12:18:00 PM EST [place] [facility] Name Value Range Interpretation Code Description Data Maura rce(s) Supporting Document(s) URINE COLOR Yellow [facility] UAPR Clear [facility] UGLU Negative NEGATIVE [facility] URINE BILIRUBIN [facility] Negative NEGATIVE [facility] USG 1.022 1.010-1.025 [facility] UBLO Negative NEGATIVE [facility] UpH 5.5 5.0-8.0 [facility] UPRO Trace Negative [facility] UUB 1.0 mg/dL 0.2-1.0 [facility] UNIT Negative Negative [facility] ULEU 1+ Negative [facility] ID Date Data Source [id number] 07/09/2020 12:18:00 PM [facility] Name Value Range Interpretation Code Description Data Maura rce(s) Supporting Document(s) URINE RBC 0-2 RBCs/HPF NONE SEEN [facility] URINE WBC 3-5 WBCs/HPF NONE SEEN [facility] URINE BACTERIA Moderate NONE SEEN [facility] l A URINE CULTURE HAS BEEN ADDED TO THIS S PECIMEN URINE EPI. Moderate NONE SEEN [facility] ID Date Data Source [id number] 07/09/2020 11:04:00 AM EST [facility] ana Name Value Range Interpretation Code Description Data Maura e(s) Supporting Document(s) COVID-19, MILEY NEGATIVE NEGATIVE [facility] Methodology: Nucleic Acid AmplificationN egative results should be treated as presumptive and, ifinconsistent with clinical signs and symptoms or necessaryfor patient management, should be tested with differentauthorized or cleared molecular tests. Negative results donot preclude SARS-CoV-2 infection and should not be used asthe sole basis for patient management decisions. Negativeresults should be considered in the context of a patient'srecent exposures history and the presence of clinical signsand symptoms consistent with COVID-19.The ID NOW COVID-19 test is only for use under the Food andDrug Administration's Emergency Use Authorization. ID Date Data Source [id number] 07/09/2020 11:23:00 AM EST [facility] Name Value Range Interpretation Code Description Data Maura rce(s) Supporting Document(s) LIP 31.0 U/L [id number] [facility] ID Date Data Source [id number] 07/09/2020 11:23:00 AM EST [facility] ana Name Value Range Interpretation Code Description Data [facility] Supporting Document(s) GLU 112 mg/dL 70-110 [facility] Patients taking Sulfasalazine may have f alsely depressedGlucose levels. Patients taking Sulfapyridine may havefalsely elevated Glucose levels. Patients should be drawnfor Glucose before the initial administration of eitherdrug. BUN 11 mg/dL 7-23 [facility] CRE 0.893 mg/dL 0.500-1.300 [facility] GFR > 60 mL/min [facility] CHLORIDE 105 mmol/L 99-110 [facility] NA 141 mmol/L 136-147 [facility] POTASSIUM 3.6 mmol/L 3.5-5.1 [facility] TCO2 30 mmol/L 20-33 [facility] ANION GAP 9.6 10.0-20.0 [facility] CA 9.7 mg/dL 8.3-10.7 [facility] ALKALINE PHOS 71 U/L 45-117 [facility] TP 8.0 g/dL 6.0-7.8 [facility] ALB 3.0 g/dL 3.5-5.0 [facility] ESRD Dialysis patient Albumin reference range: 2.9-4.4 g/dL GL 5.0 g/dL 2.3-3.5 [facility] A/G 0.6 1.0-2.5 [facility] T. BILIRUBIN 0.7 mg/dL 0.1-1.1 [facility] The Dimension [place] Total Bilirubin is n ot recommended forpatients undergoing treatment with eltrombopag (Promacta)due to the potential for falsely elevated results. ALTI 12 U/L 6-54 [facility] Patients taking Sulfasalazine and/or Sul fapyridine may havefalsely depressed ALT levels. Patients should be drawn forALT before the initial administration of either drug. AST 18 U/L 6-38 [facility] Patients taking Sulfasalazine and/or Sul fapyridine may havefalsely depressed AST levels. Patients should be drawn forAST before the initial administration of either drug. ID Date Data Source [id number] 07/09/2020 10:56:00 AM EST [facility] Name Value Range Interpretation Code Description Data Maura rce(s) Supporting Document(s) WBC 5.81 x10E3/uL 4.0-10.5 [facility] RBC 4.62 x10E6/uL 4.20-5.40 [facility] Hemoglobin 13.2 g/dL 12.0-16.0 [facility] Hematocrit 41.1 % 37.0-47.0 [facility] MCV 89.0 fL 81.0-99.0 [facility] MCH 28.6 pg 27.0-31.0 [facility] MCHC 32.1 g/dL 32.7-35.6 [facility] RDW 15.3 % 11.5-14.0 H [facility] Platelet count 390 x10E3/uL 150-450 [facility] [place] [facility] MPV 9.0 fl 6.9-9.5 N [facility] Neutrophils 67.7 % 34-64 H [facility] Lymphocytes 17.6 % 25-45 L [facility] Monocytes 11.7 % 1.7-10.6 H [facility] Eosinophils 2.2 % 0.4-7.0 N [facility] Basophils 0.5 % 0.1-2.0 N [facility] Imm. Gran. 0.3 % 0.1-2.0 N [facility] Abs. Neutro. 3.93 x10E3/uL 1.2-7.6 [facility] Abs. Lymph. 1.02 x10E3/uL 1.0-3.5 [facility] [place] [facility] Abs. Treasure. 0.68 x10E3/uL 0.1-1.0 [facility] Abs. Eosin. 0.13 x10E3/uL 0.1-0.7 [facility] [place] [facility] Abs. Baso. 0.03 x10E3/uL 0.0-0.1 [facility] Abs. Imm. Gran. 0.02 x10E3/uL 0.0-0.1 N [facility] spital ANRBC% 0 % 0 [facility] ID Date Data Source [id number] 07/09/2020 02:30:00 PM EST [facility] Physician DocumentationCladelita-Jose Miller edical CenterName: Slivia AlbertoAge: 55 yrsSex: FemaleDOB: 1965MRN: [id number] Date: 07/09/2020Time: 09:59Account#: [id number] 5BPrchantellete MD: Maude Noonan MichaelED Physician Lui ValdiviaurDisposition Summary:07/09/20 14:09Discharge OrderedLocation: Home Self Care afProblem: new afSymptoms: are unchanged afCondition: Stable afDiagnosis- Free text - INTRAABDOMINAL ABSCESS SECONDARY TO DIVERTICULITIS afFollowup: af- With: Renard Pineda MD- When: 1 week- Reason: Recheck today's complaintsDischarge Instructions:- Discharge Summary Sheet af- DIVERTICULITIS afForms:- Medication Reconciliation af- Medication Reconciliation Form - 2nd Copy afPrescriptions:- Flagyl 500 mg Oral Tablet- take 1 tablet by ORAL route every 8 hours for 14 days; 42 aftablet; Refills: 0, Product Selection Permitted- Cipro 500 mg Oral Tablet- take 1 tablet by ORAL route every 12 hours for 14 days; 28 aftablet; Refills: 0, Product Selection PermittedHPI:06/2315:25 This 55 yrs old White Female presents to ER via Private Vehicle with afcomplaints of Abdominal Pain - sent by Dr. Pineda.15:25 The patient presents with abdominal pain in the lower abdomen. Onset: afThe symptoms/episode began/occurred 1 week(s) ago. The symptoms donot radiate. Associated signs and symptoms: none. The symptoms aredescribed as intermittent. Modifying factors: The symptoms arealleviated by nothing, the symptoms are aggravated by nothing.Severity of pain: At its worst the pain was moderate in the emergencydepartment the pain is unchanged. The patient has not experiencedsimilar symptoms in the past. 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 letrozole 2.5 mg oral tab 1 tab once daily2. Vitamin D Oral 50,000 unit once a week3. omeprazole 20 mg Oral cpDR 1 cap once daily4. Xarelto Unknown oral 1 tab once daily- PMHx: Diverticulitis; breast cancer; factor 5 lieden;- PSHx: Lumpectomy of breast; Cholecystectomy;- Immunization history: Flu vaccine is not up to date. It has beenmore than one year since last vaccine.- Family history: Reviewed and not pertinent.- Social history: Smoking status: Patient states was never smoker oftobacco. ETOH status Denies use of ETOH.- Advance Directives:: None.ROS:15:25 Constitutional: Negative for fever, chills, and weight loss, Eyes: afNegative for injury, pain, redness, and discharge, ENT: Negative forinjury, pain, and discharge, Neck: Negative for injury, pain, andswelling, Cardiovascular: Negative for chest pain, palpitations, andedema, Respiratory: Negative for shortness of breath, cough,wheezing, and pleuritic chest pain. Back: Negative for injury andpain, : Negative for injury, b leeding, discharge, and swelling,MS/Extremity: Negative for injury and deformity, Skin: Negative forinjury, rash, and discoloration. Abdomen/GI: Positive for abdominalpain, Negative for nausea, vomiting, diarrhea, hematemesis,black/tarry stool, rectal bleeding.Exam:15:25 Constitutional: This is a well developed well nourished patient who afis awake alert and in no acute distress. Head/Face: Normocephalic,atraumatic. Eyes: Pupils equal round and reactive to light,extra-ocular motions intact. Lids and lashes normal. Conjunctivaand sclera are non-icteric and not injected. Cornea within normallim its. Periorbital areas with no swelling, redness, or edema. ENT:Nares patent. No nasal discharge, no septal abnormalities noted.Tympanic membranes are normal and external auditory canals are clear.Oropharynx with no redness, swelling, or masses, exudates, orevidence of obstruction, uvula midline. Mucous membranes moist.Neck: Trachea midline, no thyromegaly or masses palpated, and nocervical lymphadenopathy. Supple, full range of motion withoutnuchal rigidity, or vertebral point tenderness. No Meningismus.Chest/axilla: Normal chest wall appearance and motion. Nontenderwith no deformity. No lesions are appreciated. Cardiovascular:Regular rate and rhythm with a normal S1 and S2. No gallops,murmurs, or rubs. Normal PMI, no JVD. No pulse deficits.Respiratory: Lungs have equal breath sounds bilaterally, clear toauscultation and percussion. No rales, rhonchi or wheezes noted. Noincreased work of breathing, no retractions or nasal flaring.15:25 Back: No spinal tenderness. No costovertebr al tenderness. Fullrange of motion. Skin: Warm, dry with normal turgor. Normal colorwith no rashes, no lesions, and no evidence of cellulitis. MS/Extremity: Pulses equal, no cyanosis. Neurovascular intact. Full,normal range of motion.15:25 Abdomen/GI: Inspection: abdomen appears normal, Bowel sounds: normal,Palpation: abdomen is soft and non-tender, in all quadrants.Vital Signs:10:05 BP 143 / 75; Pulse 80; Resp 16; Temp 98.5; Pulse Ox 99% on R/A; mw1Wktozb 109 kg; Height 5 ft. 4 in. (162.56 cm);14:29 BP 139 / 79; Pulse 70; Resp 16; Pulse Ox 97% on R/A; mp310:05 Body Mass Index 41.25 (109.00 kg, 162.56 cm) mp3MDM:10:09 Patient medically screened. af15:25 Data reviewed: vital signs, nurses notes, lab test result(s), afradiologic studies. Physician consultation: Graciela Mehta MD and wade patient in ED, shortly.15:25 ED course: CT GUIDED ASPIRATION WAS ATTEMPTED, ABSCESS IS TOO SMALL afTO BE DRAINED. PT WAS EVALUATED IN THE ER BY DR. MEHTA. HE RECOMMENDSDISCHARGE HOME ON ORAL ANTIBIOTICS.06/2310:09 Order name: CBC with diff; Complete Time: 11:35 af0:09 Order name: CMP; Complete Time: 11:35 af0:09 Order name: UA; Complete Time: 12:21 af0:09 Order name: Lipase; Complete Time: 11:35 af0:10 Order name: COVID-19 PROFILE+LAB; Complete Time: 11:35 af2:18 Order name: Urine DdyuwnvVFQM61/2312:58 Order name: Pelvis w/o IV/Oral Contrast CT; Complete Time: 15:06EDMSDispensed Medications:11:10 Drug: NS 0.9% 1000 ml [sodium chloride 0.9 % intravenous solution] jm5Pmoxl: IV; Rate: bolus; Site: right antecubital;Signatures:Dispatcher [employer] Karel Arguello MD MD afPinkerton, Maureen, RN RN ln5Ltyxmrtcwji: (The following items were deleted from the chart)12:58 11:22 CT GUIDANCE FOR PERC DRAINAGE+CT ordered. EDMSEDMS Name Value Range Interpretation Code Description Data Marua rce(s) Supporting Document(s) ID Date Data Source [id number] 07/09/2020 02:30:00 PM EST [facility]ClNY[facility] terName: Silvia AlbertoAge: 55 yrsSex: FemaleDOB: 1965MRN: [id number] Date: 07/09/2020Time: 09:59Account#: [id number] MD: Jett Noonan; Renard PinedaDiagnosis: Free text-INTRAABDOMINAL ABSCESS SECONDARY TO DIVERTICULITISPresentation:06/2310: Presenting complaint: Patient states: have had abdominal problems for mp3the last 6 months, seeing Dr. Pineda, sent me for a cat scanyesterday where they found an abscess. Coronavirus Screening: Haveyou traveled internationally or had contact with someone that hastraveled and has been ill in the past 3 weeks? no Have you traveledto a location with widespread or ongoing COVID-19 community spread [facility]? no Flu-like symptoms reported in the last 14days: no. Have you had close contact with confirmed or suspectedCOVID-19 case? no Have you been diagnosed with COVID-19 in the past30 days? no Are you currently on quarantine by Public Health? no.Communicable Disease Screen: Negative for fever> /= 100 degreesFahrenheit. Communicable disease screen is negative. (-) rash orunusual skin lesion (-) travel/contact with traveler (-) respiratorysymptoms.10:01 Acuity: Triage 3 mp310:01 Method Of Arrival: Private Vehicle mp310:02 Acuity Assignment: Triage 3 iw1Gbjsvj Assessment:10:04 General: Appears in no apparent distress, Behavior is cooperative. az9Oweqmk Screening: (1)Signs/symptoms infection Sepsis is notsuspected. Pain: Complains of pain in abdomen. PSS-3 Now I'm going toask you some questions that we ask everyone treated here, no matterwhat problem they are here for. It is part of the hospital's policyand it helps us to make sure we are not missing anything important.Over the past 2 weeks, have you felt down, depressed, or hopeless?No. Over the past 2 weeks, have had thoughts of killing yourself? No.In your lifetime, have you ever attempted to kill yours elf? No.Neuro: Level of Consciousness is awake, alert. Respiratory: Airway ispatent Respiratory effort is even, unlabored. 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 letrozole 2.5 mg oral tab 1 tab once daily2. Vitamin D Oral 50,000 unit once a week3. omeprazole 20 mg Oral cpDR 1 cap once daily4. Xarelto Unknown oral 1 tab once daily- PMHx: Diverticulitis; breast cancer; factor 5 lieden;- PSHx: Lumpectomy of breast; Cholecystectomy;- Immunization history: Flu vaccine is not up to date. It has beenmore than one year since last vaccine.- Family history: Reviewed and not pertinent.- Social history: Smoking status: Patient states was never smoker oftobacco. ETOH status Denies use of ETOH.- Advance Directives:: None.Screenin:28 Abuse screen: Denies threats or abuse. Denies injuries from another. xo5Wmvwcuzmtll screening: No deficits noted. Offer of HIV ifeanyi ting:patient was previously offered screening. Fall Risk None identified.Assessment:12:03 Neuro: Level of Consciousness is awake, alert, Oriented to person, xv5awrbi, time. Respiratory: Airway is patent Respiratory effort iseven, unlabored, Breath sounds are clear bilaterally. GI: Bowelsounds present X 4 quads. Abd is soft X 4 quads.Vital Signs:10:05 BP 143 / 75; Pulse 80; Resp 16; Temp 98.5; Pulse Ox 99% on R/A; vd3Bltxsy 109 kg; Height 5 ft. 4 in. (162.56 cm);14:29 BP 139 / 79; Pulse 70; Resp 16; Pulse Ox 97% on R/A; mp310:05 Body Mass Index 41.25 (109.00 kg, 162.56 cm) mp3ED Course:09:59 Patient arrived in ED. mp310:01 Renard Pineda MD is Private Physician. mp310:01 Jett Noonan FNP-C is Private Physician. mp310:02 Triage completed. mp310:09 Karel Valdivia MD is Attending Physician. af10:30 Labs drawn. Collected by lab. Inserted peripheral IV: 20 gauge in va6eiqy antecubital area and blood collected.13:14 Isha Solano, RN is Primary Nurse. mp314:07 Renard Pineda MD is Referral Physician. af14:28 Patient has correct armband on for positive identification. mp314:28 No Physician assisted procedures completed. dh3Niozjydoyyfo Medications:11:10 Drug: NS 0.9% 1000 ml [sodium chloride 0.9 % intravenous solution] os1Abgpx: IV; Rate: bolus; Site: right ant ecubital;Outcome:14:09 Discharge ordered by . af14:29 Disposition: Discharged to home ambulatory. mp314:29 Condition: stable.14:29 Instructed on discharge instructions, follow up and referral plans.medication usage, Prescriptions given X 2.14:29 Discharge Assessment: Patient awake, alert and oriented x 3. Nocognitive and/or functional deficits noted. Patient verbalizedunderstanding of disposition instructions. Patient verbalizedunderstanding of disposition instructions. Patient has no functionaldeficits.14:30 Patient left the ED. yp4Gpticwpoaj:Karel Valdivia MD MD afPinkerton, Maureen, RN RN mp3 Name Value Range Interpretation Code Description Data Maura rce(s) Supporting Document(s) ID Date Data Source [id number] 07/09/2020 12:00:00 AM EST [facility] Name Value Range Interpretation Code Description Data Maura rce(s) Supporting Document(s) SARS-CoV2 Rapid PCR [facility] This lab was ordered by [facility] and reported by [facility]. ID Date Data Source [id number] 07/08/2020 01:49:00 PM EST [facility] Exam Number: [id number] OF EXAMINATIO N: 07/08/2020 12:57 ESTCT ABD&PELV WITH IV&ORAL CONTRHISTORY: DiverticulitisTECHNIQUE:This CT exam was performed using the following dose reductiontechniques: automated exposure control, adjustment of mA and/or kVaccording to the patient's size, and use of iterative reconstructiontechnique.Standard contiguous axial spiral imaging was obtained from the dome ofthe diaphragms through the symphysis pubis with oral contrast and withintravenous contrast administration and with coronal reformatting.FINDINGS:ABDOMEN:Liver: UnremarkableGallbladder and bile ducts: CholecystectomyPancreas: UnremarkableSpleen: UnremarkableAdrenals: UnremarkableKidneys and ureters: UnremarkableStomach and bowel: There is a 3 cm umbilical hernia containing the midtransverse colon without obstructionAppendix: NormalPELVIS:Bladder: Nondistended and unopacified therefore unable to evaluateReproductive: Grossly unremarkablePerforated acute diverticulitis is noted with a loculated fluidcollection measuring approximate 5.5 cmIMPRESSION:Perforated diverticulitis with a 5.6 x 4.5 cm peridiverticularabscess.Large umbilical hernia with herniated transverse colonElectronically signed in PS360 by: Jarvis Wilson M.D. 07/08/202013:37 EST Reported By: Henrry WILSON M.D. Signed By: Emmett WILSON M.D. Name Value Range Interpretation Code Description Data Maura rce(s) Supporting Document(s) ID Date Data Source [id number] 07/08/2020 11:20:00 AM EST [facility] Name Value Range Interpretation Code Description Data Maura rce(s) Supporting Document(s) CRE 0.896 mg/dL 0.500-1.300 [facility] ID Date Data Source [id number] 07/08/2020 11:20:00 AM EST [facility] Name Value Range Interpretation Code Description Data Maura rce(s) Supporting Document(s) BUN 11 mg/dL 7-23 [facility] ID Date Data Source [id number] 07/02/2020 03:36:00 PM EST [facility] Name Value Range Interpretation Code Description Data Maura rce(s) Supporting Document(s) SARS coronavirus 2 RNA [facility] This lab was ordered by [place] [facility] and reported by [facility]. ID Date Data Source [id number] 07/05/2020 07:06:00 AM EST [facility] Performed at: [employer], [place], [place] [id number] Director: Deedee Thakur PhD, Phone: [phone] Name Value Range Interpretation Code Description Data Maura rce(s) Supporting Document(s) SARS-CoV-2, MILEY Not Detected Not Detected [facility] This nucleic acid amplification test was developed and itsperformance characteristics determined by [facility]. Nucleic acid amplification tests include PCRand TMA. This test has not been FDA cleared or approved.This test has been authorized by FDA under an Emergency UseAuthorization (EUA). This test is only authorized forthe duration of time the declaration that circumstancesexist justifying the authorization of the emergency use ofin vitro diagnostic tests for detection of SARS-CoV-2 virusand/or diagnosis of COVID-19 infection under (b)(1) of the Act, 21 U.S.C. 360bbb-3(b) (1), unless theauthorization is terminated or revoked sooner.When diagnostic testing is negative, the possibility of afalse negative result should be considered in the contextof a patient's recent exposures and the presence ofclinical signs and symptoms consistent with COVID-19. Anindividual without symptoms of COVID-19 and who is notshedding SARS-CoV-2 virus would expect to have a negative(not detected) result in this assay.Methodology: Nucleic Acid Amplification (MILEY) ID Date Data Source [id number] 06/02/2020 02:20:00 PM EST [facility] Exam Number: [id number] OF EXAMINATIO N: 06/02/2020 13:54 ESTCT ABD&PEL W/O IV OR ORAL CONTHISTORY: Ventral hernia without obstruction or gangreneTECHNIQUE:This CT exam was performed using the following dose reductiontechniques: automated exposure control, adjustment of mA and/or kVaccording to the patient's size, and use of iterative reconstructiontechnique.Standard contiguous axial spiral imaging was obtained from the dome ofthe diaphragms through the symphysis pubis without oral contrast andwithout intravenous contrast administration and with coronalreformatting.FINDINGS:Lower thorax: UnremarkableABDOMEN:Liver: Moderate fatty infiltrationGallbladder and bile ducts: CholecystectomyPancreas: UnremarkableSpleen: UnremarkableAdrenals: UnremarkableKidneys and ureters: UnremarkableStomach and bowel: Ventral hernia/status stasis is seen at the levelof the umbilicus with herniated loop of transverse colon but withoutany definite obstruction. More superiorly there is a 0.5 cmfat-containing supra umbilical hernia. Ill-defined pocket of air,extraluminal, posterior to mid sigmoidAppendix: No appendicitisPELVIS:Bladder: Unopacified and nondistended therefore difficult to evaluateReproductive: Grossly unremarkablePossibility of a pelvic abscess likely arising from sigmoiddiverticulum is raisedIMPRESSION:Ventral defects as described above.Possibility of loculated perforation with abscess formation posteriorto mid sigmoid is raised.Electronically signed in PS360 by: Jarvis Wilson M.D. 06/02/202014:08 EST Reported By: Henrry WILSON M.D. Signed By: Emmett WILSON M.D. Name Value Range Interpretation Code Description Data Maura rce(s) Supporting Document(s) ID Date Data Source [id number] 05/22/2020 12:13:00 PM EST [facility] MIXED GAUTAM GROWN NO PATHOGENS ISOLATED Name Value Range Interpretation Code Description Data Maura rce(s) Supporting Document(s) ID Date Data Source [id number] 05/20/2020 01:47:00 PM EST [facility] Name Value Range Interpretation Code Description Data Maura rce(s) Supporting Document(s) HbA1C 6.30 % 3.8-5.6 [facility] Suggested Diagnosis HbA1c% Diabet ic >/= 6.5Prediabetes 5.7%-6.4%Normal < 5.7% ID Date Data Source [id number] 05/20/2020 11:17:00 AM EST [facility] Urine Bilirubin test must be confirmed w ith Ictotest Method Urine Bilirubin test must be confirmed w ith Ictotest Method Name Value Range Interpretation Code Description Data Maura rce(s) Supporting Document(s) URINE COLOR DK YELLOW [facility] UAPR Cloudy [facility] UGLU Negative NEGATIVE [facility] URINE [facility]ILIRUBIN [facility]IVE [facility] Trace NEGATIVE [facility] USG 1.025 1.010-1.025 [facility] UBLO Negative NEGATIVE [facility] UpH 6.0 5.0-8.0 [facility] UPRO 2+ Negative [facility] UUB 1.0 mg/dL 0.2-1.0 [facility] UNIT Negative Negative [facility] ULEU 1+ Negative [facility] ID Date Data Source [id number] 05/20/2020 11:17:00 AM EST [facility] Urine Bilirubin test must be confirmed w ith Ictotest Method Urine Bilirubin test must be confirmed w ith Ictotest Method Name Value Range Interpretation Code Description Data Maura rce(s) Supporting Document(s) URINE RBC 0-2 RBCs/HPF NONE SEEN [facility] URINE WBC 0-2 WBCs/HPF NONE SEEN [facility] URINE BACTERIA Moderate [facility]ONE [facility] CULTURE HAS BEEN ADDED TO THIS S PECIMEN URINE EPI. Moderate NONE SEEN [facility] UMUCUS Few NONE SEEN [facility] ID Date Data Source [id number] 05/20/2020 10:32:00 AM EST [facility] Name Value Range Interpretation Code Description Data Maura rce(s) Supporting Document(s) FT4 1.43 ng/dL 0.76-1.46 [facility] ID Date Data Source [id number] 05/20/2020 10:32:00 AM EST [facility] Name Value Range Interpretation Code Description Data Maura rce(s) Supporting Document(s) USTSH 2.09 uIU/mL 0.270-4.200 [facility] ID Date Data Source [id number] 05/20/2020 09:40:00 AM [facility] Name Value Range Interpretation Code Description Data Maura rce(s) Supporting Document(s) GLU 114 mg/dL 70-110 [facility] Patients taking Sulfasalazine may have f alsely depressedGlucose levels. Patients taking Sulfapyridine may havefalsely elevated Glucose levels. Patients should be drawnfor Glucose before the initial administration of eitherdrug. BUN 10 mg/dL 7-23 [facility] CRE 0.971 mg/dL 0.500-1.300 [facility] GFR > 60 mL/min [facility] CHLORIDE 103 mmol/L 99-110 [facility] NA 141 mmol/L 136-147 [facility] POTASSIUM 4.1 mmol/L 3.5-5.1 [facility] TCO2 31 mmol/L 20-33 [facility] ANION GAP 11.1 10.0-20.0 [facility] CA 8.9 mg/dL 8.3-10.7 [facility] ALKALINE PHOS 70 U/L 45-117 [facility] TP 7.5 g/dL 6.0-7.8 [facility] ALB 2.7 g/dL 3.5-5.0 [facility] ESRD Dialysis patient Albumin reference range: 2.9-4.4 g/dL GL 4.8 g/dL 2.3-3.5 [facility] A/G 0.6 1.0-2.5 [facility] T. BILIRUBIN 0.5 mg/dL 0.1-1.1 [facility] [place] Total Bilirubin is n ot recommended forpatients undergoing treatment with eltrombopag (Promacta)due to the potential for falsely elevated results. ALTI 18 U/L 6-54 [facility] Patients taking Sulfasalazine and/or Sul fapyridine may havefalsely depressed ALT levels. Patients should be drawn forALT before the initial administration of either drug. AST 26 U/L 6-38 [facility] Patients taking Sulfasalazine and/or Sul fapyridine may havefalsely depressed AST levels. Patients should be drawn forAST before the initial administration of either drug. ID Date Data Source [id number] 05/20/2020 09:40:00 AM EST [facility] ana Name Value Range Interpretation Code Description Data Maura rce(s) Supporting Document(s) CHOL 148 mg/dL 100-200 [facility] TRIG 112 mg/dL 30-190 [facility] HDL 44 mg/dL 35-80 [facility] LDL DIRECT 87 mg/dL 0-100 [facility] VLDL 17 mg/dL 0-100 [facility] ID Date Data Source [id number] 05/20/2020 09:24:00 AM EST [facility] Name Value Range Interpretation Code Description Data Maura rce(s) Supporting Document(s) WBC 7.88 x10E3/uL 4.0-10.5 [facility] RBC 4.86 x10E6/uL 4.20-5.40 [facility] Hemoglobin 13.1 g/dL 12.0-16.0 [facility] Hematocrit 42.0 % 37.0-47.0 [facility] MCV 86.4 fL 81.0-99.0 [facility] MCH 27.0 pg 27.0-31.0 [facility] MCHC 31.2 g/dL 32.7-35.6 [facility] RDW 16.4 % 11.5-14.0 [facility] Platelet count 489 x10E3/uL 150-450 [facility] ital MPV 8.9 fl 6.9-9.5 [facility] Neutrophils 60.0 % 34-64 [facility] Lymphocytes 22.5 % 25-45 [facility] Monocytes 15.5 % 1.7-10.6 [facility] Eosinophils 1.3 % 0.4-7.0 [facility] Basophils 0.4 % 0.1-2.0 [facility] Imm. Gran. 0.3 % 0.1-2.0 [facility] Abs. Neutro. 4.74 x10E3/uL 1.2-7.6 [facility] Abs. Lymph. 1.77 x10E3/uL 1.0-3.5 [facility] Abs. Treasure. 1.22 x10E3/uL 0.1-1.0 [facility] Abs. Eosin. 0.10 x10E3/uL 0.1-0.7 [facility] Abs. Baso. 0.03 x10E3/uL 0.0-0.1 [facility] Abs. Imm. Gran. 0.02 x10E3/uL 0.0-0.1 [facility] ANRBC% 0 % 0 [facility] ID Date Data Source [id number] 05/14/2020 12:54:00 PM EDT [facility] SHARON Sam [address] [address] FOLLOW UP NOTENAME: SILVIA ALBERTO SPHYSICIAN: LUIS ARENAS, MDDATE OF SERVICE: 04/24/20DATE OF : 63ACCOUNT #: [id number]: SILVIAJeremiah ALBERTODate: Apr 24, 2020DOB: 1965Physician: Luis Arenas M.D.Age: 55Note Title: Follow UpDiagnosis:Primary - C50.412 - Malignant neoplasm of upper-outer quadrant of left femalebreast, Diagnosed Oct 22, 2019 (Active) Stg IA, T1b, pN0, M0, G2, BII2Jzv, ER Pos, [place] PHistory of Problems:1. Stage I invasive ductal breast carcinoma, left breast.2. Morbid obesity.3. Glucose intolerance.4. Hypercholesterolemia.5. Vitamin D deficiency.6. Right leg DVT.7. Unexplained anorexia, nausea and weight loss.8. Heterozygous for Factor V Leiden (04/23/2020)Problems / Chief Complaint:Ms. Alberto is a 55-year old white woman who was referred by Dr. [facility] to review treatment of Stage I,pT1b,pN0(sn),M0 invasive ductal breast carcinoma of the let breast diagnosed10/09/2019.Toxicities:There are no reported toxicities.History of Present Illness:Oncology History:Ms. Alberto states that she had never had a mammogram before and was notfollowing with any health care provider. Her son urged her to seek medicalcare because of her family history. Initial routine mammogram was completed on09/10/2019 with a Tyrer-Cuzick score of 10.4 %. A cluster of calcification wasnoted in the upper outer aspect of the left breast. Additional views wererequested. A diagnostic left sided mammogram was completed on 09/20/2019indicating the calcifications seen on the screening mammogram are suspiciousfor possible malignancy and biopsy was recommended. On 10/09/2019 Dr. Gagnon completed a mammography guided left breast stereotactic vacuum-assistedcore biopsy with post procedural clip placement.Pathology is significant for invasive ducal carcinoma and DCIS. NottinghamHistologic score is 2. Two foci of invasive carcinoma were present with thelarger measuring 6.2 mm. 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 Estrogen receptor is 100 %and progesterone receptor is 100 %. Her-2 and Ki-67 are pending at the time ofdictation.Ms. Alberto states that she noticed no changes in either breast. Denyingdimpling, nipple retraction, nipple discharge or pain. She had nocomplications following the biopsy.The patient has lost her appetite in past 2 months with associated 32 poundweight loss. If she eats too much she gets pressure and discomfort in theupper abdomen. She is starting to eat very little, denies constipation ordiarrhea as the cause. She saw Dr. Palomares at [facility] on 01/25/[address] Martinez wanted her to see. No additional surgery is needed. Advised patient tostart radiation therapy. Dr. Palomares did bilateral ultrasound and breastexamination and the patient reports that all were normal.Has some improvement with Prilosec OTC but still experiences decreasedappetite, frequent nausea and weight loss.Interval History:On 02/08/2020 the patient was diagnosed with a complete DVT of the right leg.This occurred 2 months after surgery and while she was active with no definiteprecipitating event.Past Medical H istory:HypercholesterolemiaObesityHeterozygous for Factor V Leiden mutation in 2019Blood clot right leg in 2019Breast Cancer in 2019Glucose intolerance in 2019Past Surgical History:Partial mastectomy in 2019 - [facility], Dr. Erick PalomaresCholecystectomy in 1999Allergies:CodeineCurrent Medications:Cholecalciferol 1.25 mg (of 50 MCG ) Tablet Oral q 7 days for 12 weeks (2019)Femara 2.5 mg (of 2.5 mg) Tablet Oral at bedtime for 90 days (Oct 22, 2019)Omeprazole 40 mg (of 40 mg) Capsule Delayed Release Oral b.i.d. 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 Ms. ALBERTO quit smoking 31years ago but had smoked 0.5 packs/day for 6 years. She quit drinking 29 yearsago. Ms. ALBERTO reports no contact with hazardous material.Ms. ALBERTO reports the following support systems: lives alone and [facility]. Her diet consists of regular meals. She indicates her activity level as:daily activities. 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 MOYs mother is alive: coronary artery disease, and diabetes, and CABGx 4. Ms. MOYs father at age 32: Truck accident at age 32. Ms. ALBERTO'smaternal grandmother at age 91. Her maternal grandfather is :myocardial infarction, and hypertension. Her paternal grandmother is .Her paternal grandfather is . Ms. ALBERTO has 2 brothers: 2 alive. 's first brother's cardiovascular disease, and heavy smoking and alcohol.Another brother's hypercholesterolemia, and obstructive sleep apnea, andstopped smoking in mid-2019. She has 1 sister who is alive: clotting disorder.She has 3 maternal uncles: 1 alive, 2 . Ms. ALBERTO's first maternaluncle's leukemia at age 72. Another maternal uncle's end stage lung cancer,smoker. Another maternal uncle's lung cancer at age 80. Son alive and well.No family history of breast cancer or ovarian cancer.Sister and her daughter have Factor V Leiden.Review of Systems:EyesNormal - No gum bleeds.Hematologic/LymphaticNormal - No nose bleeds.GastrointestinalAbnormal - Had stool with blood in stool on several occasions, the water wasnot bloody. Appetite is still decreased but there is no weight loss. will be seen on 06/23/2020.Genitourinary (F)Abnormal - Urine was discolored and patient felt that there was blood in theurine, No vaginal bleeding.Vital Signs:Performed on Apr 24, 2020 14:01Vnhqps05.00 vyZdrvxa417.2 lbs(LOW)BSA (derived)2.17 sq.mBMI41.47 (HIGH)Dribsooktaf79.2 HLizgb74 /qmoZvzcxfcnrdm66 /wakYX872/77Pulse Oximetry (O2 Sat)97 %Fall Risklow riskPerformance Status:1 - No physically strenuous activity, but ambulatory and able to carry outlight or sedentary work (e.g. office work, light house work). (ECOG)Physical Exam:ConstitutionalNormal - Alert, cooperative, oriented. Mood and affect appropriate. Appearsclose to chronological age. Morbidly obese. Well nourished. Well developed.PsychiatricNormal - Verbalizes understanding of our discussions today.Laboratory:Test performed on Jan 11, 2020 10:00Vitamin D (25-Hydroxy), Total17 ng/mL(LOW).Impression:1. Stage I, pT1b,pN0 (sn),M0 invasive ductal breast carcinoma withmultifocal DCIS, HR positive, postmenopausal.2. DVT, right leg.Plan:1. The patient started Femara on 10/20/2019 and tolerated it for 2 months thendeveloped nausea and progressive anorexia. She ate very little and lost 45pounds in 4 months. This is not a side effect of Femara but may be related tothe generic preparation. She was advised to stop Femara while receiving RT.Femara was held throughout radiation therapy and there was no improvement in GIsymptoms. Prilosec OTC resulted in some improvement. I prescribed Hpxbhyqepp56 mg bid. Also I referred her to Dr. Constantino, GI specialist to complete a fullGI evaluation with EGD. I resumed Femara 2.5 mg daily since holding it for 2months made no difference in GI complaints. Baseline bone density is withinnormal limits.2. The patient is positive for Factor V Leiden mutation and requires Xarelto.she was advised to report any evidence of GI bleed, blood in the urine orvaginal bleed. If the bleeding is heavy she is to go to the ER.Follow-up: Follow-up is scheduled on 09/15/20, mammogram on . Name Value Range Interpretation Code Description Data Maura rce(s) Supporting Document(s) Procedure Social History Code Duration Value Status Description Data Source(s ) Smoking 06/04/2021 12:00:00 AM EST Patient is a former smoker completed Patient is a former smoker [facility]ERIE ([facility], ) Smoking 04/22/2021 12:00:00 AM EDT Never Smoker completed Never S moker eCW1 ([facility]) Smoking 04/22/2021 12:00:00 AM EDT Never Smoker completed Never S moker eCW1 ([facility]) Smoking 04/22/2021 12:00:00 AM EDT Never Smoker completed Never S moker eCW1 ([facility]) Alcohol intake 04/12/2021 12:00:00 AM EDT Current non-d brock of alcohol (finding) completed Current non-drinker of alcohol (finding) [facility] Tobacco use and exposure 04/12/2021 12:00:00 AM EDT Never used co mpleted Never used [facility] Smoking 04/12/2021 12:00:00 AM EDT Former smoker completed Former smoker [facility] Alcohol intake 02/17/2021 12:00:00 AM EDT Current non-d brock of alcohol (finding) completed Current non-drinker of alcohol (finding) [facility] Smoking 02/09/2021 12:00:00 AM EDT Never Smoker completed Never S moker eCW1 ([facility]) Smoking 02/09/2021 12:00:00 AM EDT Never Smoker completed Never S moker eCW1 ([facility]) Smoking 02/09/2021 12:00:00 AM EDT Never Smoker completed Never S moker eCW1 ([facility]) Smoking 02/09/2021 12:00:00 AM EDT Never Smoker completed Never S moker eCW1 ([facility]) Smoking 02/09/2021 12:00:00 AM EDT Never Smoker completed Never S moker eCW1 ([facility]) Alcohol intake 12/30/2020 12:00:00 AM EDT Current non-d brock of alcohol (finding) completed Current non-drinker of alcohol (finding) [facility] Smoking 11/20/2020 12:00:00 AM EDT Never Smoker completed Never S moker eCW1 ([facility]) Smoking 11/20/2020 12:00:00 AM EDT Never Smoker completed Never S moker eCW1 ([facility]) Smoking 11/18/2020 12:00:00 AM EDT Never Smoker completed Never S moker eCW1 ([facility]) Smoking 10/28/2020 12:00:00 AM EDT Never Smoker completed Never S moker eCW1 ([facility]) Smoking 10/28/2020 12:00:00 AM EDT Never Smoker completed Never S moker eCW1 ([facility]) Smoking 10/28/2020 12:00:00 AM EDT Never Smoker completed Never S moker eCW1 ([facility]) Alcohol intake 10/23/2020 12:00:00 AM EDT Current non-d brock of alcohol (finding) completed Current non-drinker of alcohol (finding) [facility] Smoking 10/15/2020 12:00:00 AM EDT Never Smoker completed Never S moker eCW1 ([facility]) Smoking 10/15/2020 12:00:00 AM EDT Never Smoker completed Never S moker eCW1 ([facility]) Alcohol intake 10/06/2020 12:00:00 AM EDT Current non-d brock of alcohol (finding) completed Current non-drinker of alcohol (finding) [facility] Alcohol intake 09/25/2020 12:00:00 AM EST Current non-d brock of alcohol (finding) completed Current non-drinker of alcohol (finding) [facility] Alcohol intake 09/14/2020 12:00:00 AM EST Current non-d brock of alcohol (finding) completed Current non-drinker of alcohol (finding) [facility] Smoking 09/04/2020 12:00:00 AM EST Former Smoker completed Former Smoker eCW1 ([facility]) Smoking 09/04/2020 12:00:00 AM EST Former Smoker completed Former Smoker eCW1 ([facility]) Smoking 09/02/2020 12:00:00 AM EST Former Smoker completed Former Smoker eCW1 ([facility]) Smoking 08/06/2020 12:00:00 AM EST Never Smoker completed Never S moker eCW1 ([facility]) Smoking 08/06/2020 12:00:00 AM EST Never Smoker completed Never S moker eCW1 ([facility]) Smoking 08/06/2020 12:00:00 AM EST Never Smoker completed Never S moker eCW1 ([facility]) Smoking 07/17/2020 12:00:00 AM EST Former Smoker completed Former Smoker eCW1 ([facility]) Smoking 07/17/2020 12:00:00 AM EST Former Smoker completed Former Smoker eCW1 ([facility]) Smoking 06/26/2020 12:00:00 AM EST Former Smoker completed Former Smoker eCW1 ([facility]) Smoking 06/26/2020 12:00:00 AM EST Former Smoker completed Former Smoker eCW1 ([facility]) Smoking 06/26/2020 12:00:00 AM EST Former Smoker completed Former Smoker eCW1 ([facility]) Smoking 05/29/2020 12:00:00 AM EST Former Smoker completed Former Smoker eCW1 ([facility] Dumont MD ) Smoking 05/29/2020 12:00:00 AM EST Former Smoker completed Former Smoker eCW1 (Uri Dumont MD ) Smoking 05/12/2020 12:00:00 AM EDT Never Smoker completed Never S moker eCW1 ([facility]) Smoking 05/12/2020 12:00:00 AM EDT Never Smoker completed Never S moker eCW1 ([facility]) Smoking 05/12/2020 12:00:00 AM EDT Never Smoker completed Never S moker eCW1 ([facility]) Vital Signs ID Date Data Source UNK Name Value Range Interpretation Code Description Data Source(s) Oxygen saturation in Arterial blood by Pulse oximetry 94 % 94 % [facility] ([facility]) Body height 63 [in_i] 63 [in_i] [facility] ([facility]) 5'3" Body weight 103.421 kg 103.421 kg [facility] ([facility]) Body surface area Derived from formula 2.04 m2 2.04 m2 [facility] ([facility]) Systolic blood pressure 110 mm[Hg] 110 mm[Hg] [facility] ([facility]) Diastolic blood pressure 70 mm[Hg] 70 mm[Hg] [facility] ([facility]) Heart rate 74 /min 74 /min [facility] ([facility]) Body weight 228.00 [lb_av] 228.00 [lb_av] [facility] ([facility]) Body mass index (BMI) [Ratio] 40.4 kg/m2 40.4 k g/m2 [facility] ([facility]) [place] body weight 115 [lb_av] 115 [lb_av] [facility] Systolic blood pressure 140 mm[Hg] 140 mm[Hg] [facility] ([facility]) Body mass index (BMI) [Ratio] 41.1 kg/m2 41.1 k g/m2 [facility] ([facility]) [place] body weight 115 [lb_av] 115 [lb_av] [facility] T ([facility]) Body weight 232.00 [lb_av] 232.00 [lb_av] [facility] T ([facility]) Body weight 105.235 kg 105.235 kg [facility] Diastolic blood pressure 80 mm[Hg] 80 mm[Hg] [facility] ([facility]) Heart rate 76 /min 76 /min [facility] ([facility]) Oxygen saturation in Arterial blood by Pulse oximetry 97 % 97 % [facility] ([facility]) Room Air Body height 63 [in_i] 63 [in_i] [facility] ([facility]) 5'3" Body surface area Derived from formula 2.06 m2 2.06 m2 [facility] ([facility]) Body height 65 [in_i] 65 [in_i] eCW1 ([facility]) Body height 165.1 cm 165.1 cm W1 ([facility]) Body weight 230 [lb_av] 230 [lb_av] eCW1 ([facility] [facility]) Body weight 104.33 kg 104.33 kg W1 ([facility]) Body mass index (BMI) [Ratio] 38.27 kg/m2 38.27 kg/m2 [facility] ([facility]) Body temperature 98.1 [degF] 98.1 [degF] W1 ( [facility]) Heart rate 80 /min 80 /min [facility] ([facility]) Oxygen saturation in Arterial blood by Pulse oximetry 94 % 94 % W1 ([facility]) Systolic blood pressure 114 mm[Hg] 114 mm[Hg] e CW1 ([facility]) Diastolic blood pressure 60 mm[Hg] 60 mm[Hg] eCW1 ([facility]) Body height 65 [in_i] 65 [in_i] eCW1 ([facility]) Body height 165.1 cm 165.1 cm W1 ([facility]) Body weight 228 [lb_av] 228 [lb_av] eCW1 ([facility]) Body weight 103.42 kg 103.42 kg eCW1 ([facility]) Body mass index (BMI) [Ratio] 37.94 kg/m2 37.94 kg/m2 eCW1 ([facility]) Systolic blood pressure 149 mm[Hg] 149 mm[Hg] e CW1 ([facility]) Diastolic blood pressure 79 mm[Hg] 79 mm[Hg] eCW1 ([facility]) Body height 65 [in_i] 65 [in_i] eCW1 ([facility]) Body height 165.1 cm 165.1 cm W1 ([facility]) Body weight 219 [lb_av] 219 [lb_av] eCW1 ([facility]) Body weight 99.34 kg 99.34 kg eCW1 ([facility]) Body mass index (BMI) [Ratio] 36.44 kg/m2 36.44 kg/m2 W1 ([facility]) Body temperature 97.6 [degF] 97.6 [degF] eCW1 ( [facility]) Heart rate 105 /min 105 /min W1 ([facility]) Oxygen saturation in Arterial blood by Pulse oximetry 99 % 99 % eCW1 ([facility]) Systolic blood pressure 116 mm[Hg] 116 mm[Hg] e CW1 ([facility]) Diastolic blood pressure 74 mm[Hg] 74 mm[Hg] eCW1 ([facility]) Body height 65 [in_i] 65 [in_i] eCW1 ([facility]) Body height 165.1 cm 165.1 cm eCW1 ([facility]) Body weight 98.88 kg 98.88 kg eCW1 ([facility]) Body mass index (BMI) [Ratio] 36.27 kg/m2 36.27 kg/m2 eCW1 ([facility]) Body weight 218 [lb_av] 218 [lb_av] eCW1 ([facility]) Body temperature 98.7 [degF] 98.7 [degF] eCW1 ( [facility]) Heart rate 112 /min 112 /min eCW1 ([facility]) Oxygen saturation in Arterial blood by Pulse oximetry 99 % 99 % eCW1 ([facility]) Systolic blood pressure 102 mm[Hg] 102 mm[Hg] e CW1 ([facility]) Diastolic blood pressure 70 mm[Hg] 70 mm[Hg] eCW1 ([facility]) Body height 65 [in_i] 65 [in_i] eCW1 ([facility]) Body height 165.1 cm 165.1 cm eCW1 ([facility]) Body weight 223 [lb_av] 223 [lb_av] eCW1 ([facility]) Body weight 101.15 kg 101.15 kg eCW1 ([facility]) Body mass index (BMI) [Ratio] 37.11 kg/m2 37.11 kg/m2 eCW1 ([facility]) Body temperature 98.1 [degF] 98.1 [degF] eCW1 ( [facility]) Heart rate 97 /min 97 /min eCW1 ([facility]) Oxygen saturation in Arterial blood by Pulse oximetry 98 % 98 % eCW1 ([facility]) Systolic blood pressure 122 mm[Hg] 122 mm[Hg] e CW1 ([facility]) Diastolic blood pressure 66 mm[Hg] 66 mm[Hg] eCW1 ([facility]) Body temperature 97.3 [degF] 97.3 [degF] eCW1 ( [facility] Body weight 223 [lb_av] 223 [lb_av] eCW1 ([facility]) Body mass index (BMI) [Ratio] 37.11 kg/m2 37.11 kg/m2 eCW1 ([facility]) Body height 65 [in_i] 65 [in_i] eCW1 ([facility]) Body height 65 [in_i] 65 [in_i] eCW1 ([facility]) Body height 165.1 cm 165.1 cm eCW1 ([facility]) Body weight 228.04 [lb_av] 228.04 [lb_av] eCW1 ([facility]) Body weight 103.44 kg 103.44 kg eCW1 ([facility]) Body mass index (BMI) [Ratio] 37.94 kg/m2 37.94 kg/m2 eCW1 ([facility]) Heart rate 93 /min 93 /min eCW1 ([facility]) Oxygen saturation in Arterial blood by Pulse oximetry 98 % 98 % eCW1 ([facility]) Systolic blood pressure 110 mm[Hg] 110 mm[Hg] e CW1 ([facility]) Diastolic blood pressure 88 mm[Hg] 88 mm[Hg] eCW1 ([facility]) Body temperature 96.9 [degF] 96.9 [degF] eCW1 ( [facility]) Body weight 233 [lb_av] 233 [lb_av] eCW1 ([facility]) Body mass index (BMI) [Ratio] 38.77 kg/m2 38.77 kg/m2 eCW1 ([facility]) Body height 65 [in_i] 65 [in_i] eCW1 ([facility]) Body temperature 97.5 [degF] 97.5 [degF] eCW1 ( [facility]) Body weight 241 [lb_av] 241 [lb_av] eCW1 ([facility]) Body mass index (BMI) [Ratio] 40.10 kg/m2 40.10 kg/m2 eCW1 ([facility]) Body height 65 [in_i] 65 [in_i] eCW1 ([facility]) Body weight 247 [lb_av] 247 [lb_av] eCW1 ([facility]) Body mass index (BMI) [Ratio] 41.10 kg/m2 41.10 kg/m2 eCW1 ([facility]) Body height 65 [in_i] 65 [in_i] eCW1 ([facility]) Body height 65 [in_i] 65 [in_i] eCW1 ([facility]) Body height 165.1 cm 165.1 cm eCW1 ([facility]) Body weight 247 [lb_av] 247 [lb_av] eCW1 ([facility]) Body weight 112.04 kg 112.04 kg eCW1 ([facility]) Body mass index (BMI) [Ratio] 41.10 kg/m2 41.10 kg/m2 eCW1 ([facility]) Body temperature 98.8 [degF] 98.8 [degF] eCW1 ( [facility]) Heart rate 98 /min 98 /min eCW1 ([facility]) Oxygen saturation in Arterial blood by Pulse oximetry 97 % 97 % eCW1 ([facility]) Systolic blood pressure 118 mm[Hg] 118 mm[Hg] e CW1 ([facility]) Diastolic blood pressure 78 mm[Hg] 78 mm[Hg] eCW1 ([facility]) ID Date Data Source [id number] 06/13/2021 12:33:[address] [facility] Name Value Range Interpretation Code Description Data Source(s) Weight (Calculated Kilograms) 95.45 95.45 [facility] Height (Calculated Centimeters) 165.1 165. 1 [facility] Body Mass Index (BMI) 35.0 35.0 [facility] Weight (Calculated Kilograms) 95.45 95.45 [facility] Height (Calculated Centimeters) 165.1 165. 1 [facility] Body Mass Index (BMI) 35.0 35.0 [facility] ID Date Data Source [id number] 05/25/2021 11:31:[address] [facility] Name Value Range Interpretation Code Description Data Source(s) Weight (Calculated Kilograms) 95.45 95.45 [facility] Height (Calculated Centimeters) 165.1 165. 1 [facility] Body Mass Index (BMI) 35.0 35.0 [facility] ID Date Data Source [id number] 04/03/2021 02:58:00 AM [facility] Name Value Range Interpretation Code Description Data Source(s) Weight (Calculated Kilograms) 95.45 95.45 [facility] Height (Calculated Centimeters) 165.1 165. 1 [facility] Body Mass Index (BMI) 35.0 35.0 [facility] ID Date Data Source [id number] 04/02/2021 02:10:00 PM [facility] Name Value Range Interpretation Code Description Data Source(s) Weight (Calculated Kilograms) 95.45 95.45 [facility] Height (Calculated Centimeters) 165.1 165. 1 [facility] Body Mass Index (BMI) 35.0 35.0 [facility] ID Date Data Source [id number] 01/13/2021 03:09:00 PM [facility] Name Value Range Interpretation Code Description Data Source(s) Weight (Calculated Kilograms) 95.45 95.45 [facility] Height (Calculated Centimeters) 165.1 165. 1 [facility] Body Mass Index (BMI) 35.0 35.0 [facility] ID Date Data Source [id number] 12/31/2020 05:32:00 AM [facility] Name Value Range Interpretation Code Description Data Source(s) Weight (Calculated Kilograms) 95.45 95.45 [facility] Height (Calculated Centimeters) 165.1 165. 1 [facility] Body Mass Index (BMI) 35.0 35.0 [facility] ID Date Data Source [id number] 12/17/2020 12:19:00 AM [facility] Name Value Range Interpretation Code Description Data Source(s) Weight (Calculated Kilograms) 95.45 95.45 [facility] Height (Calculated Centimeters) 165.1 165. 1 [facility] Body Mass Index (BMI) 35.0 35.0 [facility] ID Date Data Source [id number] 12/22/2020 12:17:00 PM [facility] Name Value Range Interpretation Code Description Data Source(s) Weight (Calculated Kilograms) 95.45 95.45 [facility] Height (Calculated Centimeters) 165.1 165. 1 [facility] Body Mass Index (BMI) 35.0 35.0 [facility] ID Date Data Source [id number] 12/09/2020 12:19:00 AM [facility] Name Value Range Interpretation Code Description Data Source(s) Weight (Calculated Kilograms) 95.45 95.45 [facility] Height (Calculated Centimeters) 165.1 165. 1 [facility] Body Mass Index (BMI) 35.0 35.0 [facility] ID Date Data Source [id number] 12/08/2020 09:57:00 AM [facility] Name Value Range Interpretation Code Description Data Source(s) Weight (Calculated Kilograms) 95.45 95.45 [facility] Height (Calculated Centimeters) 165.1 165. 1 [facility] Body Mass Index (BMI) 35.0 35.0 [facility] ID Date Data Source [id number] 12/01/2020 08:53:00 AM [facility] Name Value Range Interpretation Code Description Data Source(s) Weight (Calculated Kilograms) 95.45 95.45 [facility] Height (Calculated Centimeters) 165.1 165. 1 [facility] Body Mass Index (BMI) 35.0 35.0 [facility] ID Date Data Source [id number] 11/25/2020 02:15:00 PM [facility] Name Value Range Interpretation Code Description Data Source(s) Weight (Calculated Kilograms) 95.45 95.45 [facility] Height (Calculated Centimeters) 165.1 165. 1 [facility] Body Mass Index (BMI) 35.0 35.0 [facility] ID Date Data Source [id number] 11/25/2020 12:57:00 PM EDT [facility] Name Value Range Interpretation Code Description Data Source(s) Weight (Calculated Kilograms) 95.45 95.45 [facility] Height (Calculated Centimeters) 165.1 165. 1 [facility] Body Mass Index (BMI) 35.0 35.0 [facility] ID Date Data Source [id number] 12/10/2020 07:42:00 AM EDT [facility] Name Value Range Interpretation Code Description Data Source(s) Weight (Calculated Kilograms) 95.45 95.45 [facility] Height (Calculated Centimeters) 165.1 165. 1 [facility] Body Mass Index (BMI) 35.0 35.0 [facility] ID Date Data Source [id number] 03/13/2021 09:28:00 AM EDT [facility] Name Value Range Interpretation Code Description Data Source(s) Weight Measurement Method 1 1 [facility] Weight (Calculated Kilograms) 95.45 95.45 [facility] Weight 3404.8 3404.8 [facility] Temperature Source 7 7 [facility] Temperature 98.4 98.4 [facility] Respiratory Effort 1 1 [facility] Respiratory Rate 18 18 [facility] Pulse Assessment Method 4 4 [facility] Pulse Rate 78 78 [facility] Height (Calculated Centimeters) 165.1 165. 1 [facility] Height 65 65 [facility] Blood Pressure 150/80 150/80 [facility] Body Mass Index (BMI) 35.0 35.0 [facility] Weight Measurement Method 1 1 [facility] Weight (Calculated Kilograms) 95.45 95.45 [facility] Weight 3404.8 3404.8 [facility] Temperature Source 7 7 [facility] Temperature 98.4 98.4 [facility] Respiratory Effort 1 1 [facility] Respiratory Rate 18 18 [facility] Pulse Assessment Method 4 4 [facility] Pulse Rate 78 78 [facility] Height (Calculated Centimeters) 165.1 165. 1 [facility] Height 65 65 [facility] Blood Pressure 150/80 150/80 [facility] Body Mass Index (BMI) 35.0 35.0 [facility] Weight Measurement Method 1 1 [facility] Weight (Calculated Kilograms) 95.45 95.45 [facility] Weight 3404.8 3404.8 [facility] Temperature Source 7 7 [facility] Temperature 98.4 98.4 [facility] Respiratory Effort 1 1 [facility] Respiratory Rate 18 18 [facility] Pulse Assessment Method 4 4 [facility] Pulse Rate 78 78 [facility] Height (Calculated Centimeters) 165.1 165. 1 [facility] Height 65 65 [facility] Blood Pressure 150/80 150/80 [facility] Body Mass Index (BMI) 35.0 35.0 [facility] Weight Measurement Method 1 1 [facility] Weight (Calculated Kilograms) 95.45 95.45 [facility] Weight 3404.8 3404.8 [facility] Temperature Source 7 7 [facility] Temperature 98.9 98.9 [facility] Respiratory Effort 1 1 [facility] Respiratory Rate 18 18 [facility] Pulse Assessment Method 4 4 [facility] Pulse Rate 67 67 [facility] Height (Calculated Centimeters) 165.1 165. 1 [facility] Height 65 65 [facility] Blood Pressure 124/62 124/62 [facility] Body Mass Index (BMI) 35.0 35.0 [facility] Weight Measurement Method 1 1 [facility] Weight (Calculated Kilograms) 95.45 95.45 [facility] Weight 3367 3367 [facility] Temperature Source 7 7 [facility] Temperature 99.3 99.3 [facility] Respiratory Effort 1 1 [facility] Respiratory Rate 18 18 [facility] Pulse Assessment Method 4 4 [facility] Pulse Rate 60 60 [facility] Height (Calculated Centimeters) 165.1 165. 1 [facility] Height 65 65 [facility] Blood Pressure 145/73 145/73 [facility] Body Mass Index (BMI) 35.0 35.0 [facility] Weight Measurement Method 1 1 [facility] Weight (Calculated Kilograms) 95.45 95.45 [facility] Weight 3367 3367 [facility] Temperature Source 7 7 [facility] Temperature 97.3 97.3 [facility] Respiratory Effort 1 1 [facility] Respiratory Rate 18 18 [facility] Pulse Assessment Method 4 4 [facility] Pulse Rate 65 65 [facility] Height (Calculated Centimeters) 165.1 165. 1 [facility] Height 65 65 [facility] Blood Pressure 140/72 140/72 [facility] Body Mass Index (BMI) 35.0 35.0 [facility] Weight Measurement Method 1 1 [facility] Weight (Calculated Kilograms) 95.45 95.45 [facility] Weight 3404.8 3404.8 [facility] Temperature Source 7 7 [facility] Temperature 98.4 98.4 [facility] Respiratory Effort 1 1 [facility] Respiratory Rate 18 18 [facility] Pulse Assessment Method 4 4 [facility] Pulse Rate 78 78 [facility] Height (Calculated Centimeters) 165.1 165. 1 [facility] Height 65 65 [facility] Blood Pressure 150/80 150/80 [facility] Body Mass Index (BMI) 35.0 35.0 [facility] Weight Measurement Method 1 1 [facility] Weight (Calculated Kilograms) 95.45 95.45 [facility] Weight 3367 3367 [facility] Temperature Source 7 7 [facility] Temperature 96.8 96.8 [facility] Respiratory Effort 1 1 [facility] Respiratory Rate 14 14 [facility] Pulse Assessment Method 4 4 [facility] Pulse Rate 69 69 [facility] Height (Calculated Centimeters) 165.1 165. 1 [facility] Height 65 65 [facility] Blood Pressure 128/75 128/75 [facility] Body Mass Index (BMI) 35.0 35.0 [facility] Weight Measurement Method 1 1 [facility] Weight (Calculated Kilograms) 95.45 95.45 [facility] Weight 3404.8 3404.8 [facility] Temperature Source 7 7 [facility] Temperature 98.4 98.4 [facility] Respiratory Effort 1 1 [facility] Respiratory Rate 18 18 [facility] Pulse Assessment Method 4 4 [facility] Pulse Rate 78 78 [facility] Height (Calculated Centimeters) 165.1 165. 1 [facility] Height 65 65 [facility] Blood Pressure 150/80 150/80 [facility] Body Mass Index (BMI) 35.0 35.0 [facility] Weight Measurement Method 1 1 [facility] Weight (Calculated Kilograms) 95.45 95.45 [facility] Weight 3404.8 3404.8 [facility] Temperature Source 7 7 [facility] Temperature 98.4 98.4 [facility] Respiratory Effort 1 1 [facility] Respiratory Rate 18 18 [facility] Pulse Assessment Method 4 4 [facility] Pulse Rate 78 78 [facility] Height (Calculated Centimeters) 165.1 165. 1 [facility] Height 65 65 [facility] Blood Pressure 150/80 150/80 [facility] Body Mass Index (BMI) 35.0 35.0 [facility] ID Date Data Source [id number] 10/13/2020 12:12:32 PM [facility] Name Value Range Interpretation Code Description Data Source(s) WEIGHT RECORDED 228 lb 228 lb [facility] TRANSFER FROM [facility] ID Date Data Source [id number] 10/06/2020 02:20:01 PM [facility] Name Value Range Interpretation Code Description Data Source(s) WEIGHT RECORDED 237.22 lb 237.22 lb [facility] WEIGHT RECORDED 238.1 lb 238.1 lb [facility] Body height Measured 65 in 65 in [facility] TRANSFER FROM [facility] ID Date Data Source [id number] 09/24/2020 04:15:54 PM EST [facility] Name Value Range Interpretation Code Description Data Source(s) TRANSFER FROM [facility] ID Date Data Source [id number] 09/30/2020 06:45:49 AM EDT [facility] Name Value Range Interpretation Code Description Data Source(s) TRANSFER FROM [facility] ID Date Data Source [id number] 11/10/2020 07:09:31 AM EDT [facility] Name Value Range Interpretation Code Description Data Source(s) WEIGHT RECORDED 223 lb 223 lb [facility] Body height Measured 65 in 65 in [facility] TRANSFER FROM [facility] ID Date Data Source [id number] 09/12/2020 03:57:00 AM EST [facility] Name Value Range Interpretation Code Description Data Source(s) WEIGHT 134.54 kilos 134.54 kilos [facility] HEIGHT 165.1 centimeters 165.1 centimeters [facility] ID Date Data Source [id number] 09/12/2020 03:57:00 AM EST [facility] Name Value Range Interpretation Code Description Data Source(s) WEIGHT 134.54 kilos 134.54 kilos [facility] HEIGHT 165.1 centimeters 165.1 centimeters [facility] Patient Treatment Plan of Care Planned Activity Planned Date Details Description Data Source (s) Influenza, seasonal unspecified 05/12/2020 12:00:00 AM EDT eCW1 ([facility]) Influenza, seasonal unspecified 05/12/2020 12:00:00 AM EDT eCW1 ([facility]) Influenza, seasonal unspecified 05/12/2020 12:00:00 AM EDT eCW1 ([facility]) Influenza, seasonal unspecified 05/12/2020 12:00:00 AM EDT eCW1 ([facility]) Influenza, seasonal unspecified 05/12/2020 12:00:00 AM EDT eCW1 ([facility]) Influenza, seasonal unspecified 05/12/2020 12:00:00 AM EDT eCW1 ([facility]) Influenza, seasonal unspecified 05/12/2020 12:00:00 AM EDT eCW1 ([facility]) Influenza, seasonal unspecified 05/12/2020 12:00:00 AM EDT eCW1 ([facility]) Influenza, seasonal unspecified 05/12/2020 12:00:00 AM EDT eCW1 ([facility]) Influenza, seasonal unspecified 05/12/2020 12:00:00 AM EDT eCW1 ([facility]) Influenza, seasonal unspecified 05/12/2020 12:00:00 AM EDT eCW1 ([facility]) Influenza, seasonal unspecified 05/12/2020 12:00:00 AM EDT eCW1 ([facility]) Influenza, seasonal unspecified 05/12/2020 12:00:00 AM EDT eCW1 ([facility]) Influenza, seasonal unspecified 05/12/2020 12:00:00 AM EDT eCW1 ([facility]) Influenza, seasonal unspecified 05/12/2020 12:00:00 AM EDT eCW1 ([facility]) Influenza, seasonal unspecified 05/12/2020 12:00:00 AM EDT eCW1 ([facility]) Influenza, seasonal unspecified 05/12/2020 12:00:00 AM EDT eCW1 ([facility]) Influenza, seasonal unspecified 05/12/2020 12:00:00 AM EDT eCW1 ([facility]) Influenza, seasonal unspecified 05/12/2020 12:00:00 AM EDT eCW1 ([facility]) Influenza, seasonal unspecified 05/12/2020 12:00:00 AM EDT eCW1 ([facility]) Influenza, seasonal unspecified 05/12/2020 12:00:00 AM EDT eCW1 ([facility]) Influenza, seasonal unspecified 05/12/2020 12:00:00 AM EDT eCW1 ([facility]) Azithromycin 250 MG Oral Tablet 04/13/2021 12:00:00 AM EDT eCW1 ([facility]) Amoxicillin 875 MG / Clavulanate 125 MG Oral Tablet 05/14/20 21 12:00:00 AM [facility] NITROFURANTOIN, MACROCRYSTALS 25 MG / Ni trofurantoin, Monohydrate 75 MG Oral Capsule [Macrobid] 10/28/2020 12:00:00 AM EDT eC W1 ([facility]) NITROFURANTOIN, MACROCRYSTALS 25 MG / Ni trofurantoin, Monohydrate 75 MG Oral Capsule [Macrobid] 10/28/2020 12:00:00 AM EDT eC W1 ([facility]) DuoDerm Signal Dressing - 10/23/2020 12:00:00 AM EDT eCW1 ([facility]) gabapentin 300 MG Oral Capsule 10/08/2020 12:00:00 AM [facility] POLYETHYLENE GLYCOL 3350 142 MG/ML Oral Solution 10/08/2020 12:00:0 0 AM [facility] sennosides, LONG-TERM 8.6 MG Oral Tablet 10/08/2020 12:00:00 AM [facility] Docusate Sodium 100 MG Oral Capsule 10/08/2020 12:00:00 AM [facility] Lidocaine 5 % External Patch (LIDODERM) 10/08/2020 12:00:00 AM [facility] Oxycodone Hydrochloride 5 MG Oral Tablet 10/08/2020 12:00:00 AM [facility] ondansetron (ZOFRAN) injection 4 mg 10/06/2020 10:13:58 AM [facility] 1 ML Enoxaparin sodium 100 MG/ML Prefilled Syringe 10/03/2020 12 :00:00 AM [facility] Benzocaine 15 MG / Menthol 3.6 MG Oral Lozenge 09/30/2020 02:42:28 PM [facility] Oxycodone Hydrochloride 5 MG Oral Tablet 09/30/2020 12:00:00 AM [facility] gabapentin 300 MG Oral Capsule 09/30/2020 12:00:00 AM [facility] 1 ML Enoxaparin sodium 100 MG/ML Prefilled Syringe 09/30/2020 12 :00:00 AM [facility] oxyCODONE (ROXICODONE) immediate release tablet 10 mg 09/28/2020 09:25:46 AM [facility] Piperacillin 3000 MG / tazobactam 375 MG Injection 09/24/2020 09 :00:00 PM [facility] Benzocaine 15 MG / Menthol 3.6 MG Oral Lozenge 09/24/2020 08:44:26 PM [facility] Ondansetron 4 MG Oral Tablet 09/24/2020 08:44:26 PM [facility] lidocaine (XYLOCAINE) 1 % injection 5 mL 09/24/2020 08:44:25 PM [facility] sodium chloride (preservative free) 0.9 % flush 10 mL 09/24/2020 08:44:25 PM [facility] iohexol (OMNIPAQUE) 240 MG/ML contrast 20 mL 09/24/2020 07:55:03 PM [facility] iohexol (OMNIPAQUE) 240 MG/ML contrast 20 mL 09/24/2020 07:55:03 PM [facility] sodium chloride (preservative free) 0.9 % flush 10 mL 09/24/2020 01:18:12 PM [facility] lidocaine (XYLOCAINE) 1 % injection 5 mL 09/24/2020 01:18:12 PM [facility] Benzocaine 15 MG / Menthol 3.6 MG Oral Lozenge 09/22/2020 03:59:11 PM [facility] Oxycodone Hydrochloride 5 MG Oral Tablet 09/22/2020 12:00:00 AM [facility] Metronidazole 500 MG Oral Tablet 09/22/2020 12:00:00 AM [facility] gabapentin 300 MG Oral Capsule 09/22/2020 12:00:00 AM [facility] 1 ML Enoxaparin sodium 100 MG/ML Prefilled Syringe 09/22/2020 12 :00:00 AM [facility] Ciprofloxacin 250 MG Oral Tablet 09/22/2020 12:00:00 AM [facility] Acetaminophen 325 MG Oral Tablet 09/22/2020 12:00:00 AM [facility] melatonin sublingual tablet 10 mg 09/16/2020 01:13:17 AM [facility] letrozole 2.5 MG Oral Tablet 09/04/2020 12:00:00 AM [facility] Amoxicillin 875 MG / Clavulanate 125 MG Oral Tablet 09/01/19 12:00:00 AM EST eCW1 ([facility]) pantoprazole 40 MG Delayed Release Oral Tablet 08/07/2020 12:00:00 AM EST [facility] pantoprazole 40 MG Delayed Release Oral Tablet [Proton ix] 08/06/2020 12:00:00 AM EST eCW1 ([facility]) pantoprazole 40 MG Delayed Release Oral Tablet [Proton ix] 08/06/2020 12:00:00 AM EST eCW1 ([facility]) Metronidazole 500 MG Oral Tablet [Flagyl] 06/04/2020 12:00:00 AM ES T eCW1 ([facility]) Ciprofloxacin 500 MG Oral Tablet [Cipro] 06/04/2020 12:00:00 AM EST eCW1 ([facility])
[2021-06-17] MEDS ORDERED: ROCURONIUM BROMIDE 50 MG/5 ML VIAL As Ordered ONE (07:57)
[2021-06-17] MEDS ORDERED: propofoL 200 MG/20 ML VIAL As Ordered ONE (07:57)
[2021-06-17] MEDS ORDERED: KETOROLAC 60MG 2ML VIAL As Ordered ONE (07:57)
[2021-06-17] MEDS ORDERED: dexameTHASONE 4 MG/ML 1ML VIAL (J1100 PER 1MG) As Ordered ONE (07:57)
[2021-06-17] MEDS ORDERED: ONDANSETRON 4MG/2ML VIAL As Ordered ONE (07:57)
[2021-06-17] MEDS ORDERED: SUGAMMADEX SODIUM 500 MG/5 ML VIAL (BRIDION) As Ordered ONE (07:57)
[2021-06-17] MEDS ORDERED: LIDOCAINE 2% 100MG/5ML SDV (FOR ANES.) As Ordered ONE (07:57)
[2021-06-17] MEDS ORDERED: MIDAZOLAM INJ 2MG/2ML VIAL (J2250 PER 1MG) As Ordered ONE (07:58)
[2021-06-17] MEDS ORDERED: fentaNYL 100 MCG/2 ML INJECTION (J3010) As Ordered ONE (07:59)
[2021-06-17] MEDS ORDERED: CETACAINE SPRAY 5GM As Ordered ONE (08:22)
[2021-06-17] MEDS ORDERED: THROMBIN SOLN 5,000 UNITS VIAL As Ordered ONE ×2 (08:22→10:07)
[2021-06-17] MEDS ORDERED: EPINEPHrine 1MG/10ML SYRINGE 1.5IN As Ordered ONE (08:22)
[2021-06-17] MEDS ORDERED: LIDOCAINE 1% SDV 30ML VIAL As Ordered ONE ×2 (08:22→10:07)
--- NOTE | 2021-06-17 10:06 | ROOR ---
Patient Name: Silvia Turner Procedure Date: 06/17/2021 8:22 AM Date of : 1965 Admit Type: Ambulatory Age: 56 Room: Main OR Note Status: Finalized Attending MD: JAD SOMMER MD Procedure: Bronchoscopy Indications: Abnormal CT scan of chest, Diffuse parenchymal lung disease, Bilateral infiltrate, Diffuse infiltrate Providers: JAD SOMMER MD (Doctor), Catherine Guzman MD (Doctor) Referring MD: 1. NO/Unknown PCP 1. NO/Unknown PCP, Admin. (Referring MD) Requesting Physician: Medicines: Lidocaine 4% via nebulizer with Albuterol 2.5 mg Complications: No immediate complications Procedure: Pre-Anesthesia Assessment: - ASA Grade Assessment: II - A patient with mild systemic disease. The Bronchoscope was introduced through the mouth, via the endotracheal tube (the patient was intubated for the procedure) and advanced to the tracheobronchial tree of both lungs. The patient tolerated the procedure well. Findings: Electromagnetic navigation bronchoscopy utilizing the [employer] robot was performed. The CT scan was used for planning purposes. A virtual bronchoscopic image was generated using the planning software. The target in the superior segment of the left lower lobe was marked. An area of infiltration 3 cm in size was found and a pathway was created. After a complete airway exam, the navigation phase was then begun to locate the target lesion(s). Positioning was confirmed using fluoroscopy and centrally (in relation to the lesion) was confirmed using the Olympus radial probe US catheter. Transbronchial biopsies of a mass were performed in the superior segment of the left lower lobe using forceps and sent for histopathology examination. The procedure was guided by fluoroscopy. Transbronchial biopsy technique was selected because the sampling site was not visible endoscopically. Bronchoalveolar lavage was performed in the LLL superior segment (B6) of the lung and sent for routine cytology and bacterial, AFB and fungal analysis. The return was cloudy. Multiple specimens were obtained and pooled into one specimen, which was sent for analysis. The endotracheal tube is in good position. The visualized portion of the trachea is of normal caliber. The jairo is sharp. The tracheobronchial tree was examined to at least the first subsegmental level. Bronchial mucosa and anatomy are normal; there are no endobronchial lesions, and no secretions. Impression: - Abnormal CT scan of chest - Diffuse parenchymal lung disease - Bilateral infiltrate - Diffuse infiltrate - Electromagnetic navigation bronchoscopy was performed. - Bronchoalveolar lavage was performed. - The airway examination was normal. - The tip of the endotracheal tube is 4 cm above the jairo. - Normal tracheobronchial tree. Recommendation: - Await BAL and biopsy results. - Written discharge instructions were provided to the patient. Procedure Code(s): --- Professional --- 50959, Bronchoscopy, rigid or flexible, including fluoroscopic guidance, when performed; with transbronchial lung biopsy(s), single lobe 69719, Bronchoscopy, rigid or flexible, including fluoroscopic guidance, when performed; with bronchial alveolar lavage 50284, Bronchoscopy, rigid or flexible, including fluoroscopic guidance, when performed; with computer-assisted, image-guided navigation (List separately in addition to code for primary procedure[s]) 58820, Bronchoscopy, rigid or flexible, including fluoroscopic guidance, when performed; with transendoscopic endobronchial ultrasound (EBUS) during bronchoscopic diagnostic or therapeutic intervention(s) for peripheral lesion(s) (List separately in addition to code for primary procedure[s]) CPT copyright 2019 [employer]. All rights reserved. The codes documented in this report are preliminary and upon superintendent ammunition storage review may be revised to meet current compliance requirements. Attending Participation: I personally performed the entire procedure. JAD SOMMER MD 06/17/2021 10:05:46 AM Catherine Guzman MD Number of Addenda: 0 Note Initiated On: 06/17/2021 8:22 AM
--- NOTE | 2021-06-17 10:12 | REP ---
INDICATION: POST OP IN PACU/ BRONCHOSCOPY. COMPARISON: 04/27/2021 from an outside institution TECHNIQUE: Portable FINDINGS: The technique utilized in obtaining the radiograph has magnified the cardiac silhouette and accentuated the interstitial markings. Scattered bilateral patchy airspace opacities seen on the prior exam have improved. The cardiomediastinal silhouette is stable. The heart is not enlarged. There are no new abnormal opacities. There is no evidence of a pleural effusion or pneumothorax. The osseous structures are stable and intact IMPRESSION: As above <Electronically signed by Haile Laura > 06/17/21 [id number]
[2021-06-17] MEDS ORDERED: fentaNYL 100 MCG/2 ML INJECTION (J3010) IV PRN (10:15)
[2021-06-17] MEDS ORDERED: ONDANSETRON 4MG/2ML VIAL IV PRN (10:15)
[2021-06-17] MEDS ORDERED: LR 1,000 ML IV SCH (10:15)
[2021-06-17] MEDS ORDERED: oxyCODONE 5MG TAB PO PRN (10:15)
[2021-06-17 11:35] VITALS: BP 121/56
--- NOTE | 2021-06-17 12:54 | REP ---
INDICATION: RIGHT LOWER LOBE ABNORMALITY. COMPARISON: Chest 04/27/2021. TECHNIQUE: Two C-arm views chest. FINDINGS: Bronchoscope is seen inferiorly on the left. IMPRESSION: 4 minutes 57 seconds fluoroscopy time utilized. <Electronically signed by Emerson Tapia > 06/17/21 [id number]
--- NOTE | 2021-06-17 16:46 | ECGEPIP ---
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
== END 2021-06-17 11:35 | disposition home or self-care (01) ==
LOC: M SDC 07:27
PROVIDERS: ATTEND Internal Medicine Pulmonary Disease
DX: S27.301A Unspecified injury of lung, unilateral, initial encounter (principal); X58.XXXA Exposure to other specified factors, initial encounter; Y92.89 Other specified places as the place of occurrence of the external cause; D68.2 Hereditary deficiency of other clotting factors; K57.92 Diverticulitis of intestine, part unspecified, without perforation or abscess without bleeding; C50.012 Malignant neoplasm of nipple and areola, left female breast; Z92.3 Personal history of irradiation; Z86.718 Personal history of other venous thrombosis and embolism; Z90.49 Acquired absence of other specified parts of digestive tract; Z87.19 Personal history of other diseases of the digestive system; Z87.891 Personal history of nicotine dependence; Z79.01 Long term (current) use of anticoagulants; Z93.3 Colostomy status; Z79.899 Other long term (current) drug therapy
CPT/HCPCS: 31624; 31627; 31628; 31654; 71045; 76000; 87070; 87102; 87116; 87205; 87206; 88108; 88305; 88313; 93005; J1100; J1885; J2250; J2405; J3010; S2900

== ENCOUNTER → 2022-01-25 | Outpatient (CLI) | payer BC ==
[~2022-01-25] MED LIST changes: -ALBUTEROL SULFATE 2.5 MG/0.5 ML INH NEB SOLN INH ONE; -LIDOCAINE 1% MDV 20ML VIAL SQ PRN; -LIDOCAINE 4% INJ 5ML AMP INH ONE; -LR 1,000 ML IV ONE
== END ==
LOC: M PLAIMG 12:30
PROVIDERS: ATTEND Internal Medicine Pulmonary Disease
DX: J84.116 Cryptogenic organizing pneumonia (principal)

== ENCOUNTER → 2022-02-23 | Outpatient (CLI) | payer BC ==
[~2022-02-23] MED LIST changes: +GASTROGRAFIN SOLUTION 30ML (Q9963) As Ordered ONE; +ISOVUE-370 76% 100ML VIAL As Ordered ONE
[2022-02-23 12:15] LABS: BASO % 0.4 % (0.0-1.0); EOS # 0.3 10^3/uL (0.0-0.5); EOS % 3.8 % (0.0-3.0); HEMATOCRIT 36.5 % (36.0-47.0); HEMOGLOBIN 11.5 g/dl (12.0-15.5); LYMPH # 1.2 10^3/uL (1.5-5.0); LYMPH % 17.3 % (24.0-44.0); MEAN CORPUSCULAR HEMOGLOBIN 28.1 pg (27.0-33.0); MEAN CORPUSCULAR HGB CONC 31.5 g/dl (32.0-36.5); MEAN CORPUSCULAR VOLUME 89.2 fl (80.0-96.0); MONO # 0.8 10^3/uL (0.0-0.8); MONO % 11.8 % (2.0-8.0); NEUTROPHILS # 4.6 10^3/uL (1.5-8.5); NEUTROPHILS % 66.1 % (36.0-66.0); PLATELET COUNT, AUTOMATED 465 10^3/uL (150-450); RED BLOOD COUNT 4.09 10^6/uL (4.00-5.40); WHITE BLOOD COUNT 6.9 10^3/uL (4.0-10.0)
[2022-02-23 12:45] LABS: ALBUMIN 2.6 GM/DL (3.2-5.2); ALT/SGPT 9 U/L (12-78); BILIRUBIN,TOTAL 0.5 MG/DL (0.2-1.0); BLOOD UREA NITROGEN 9 MG/DL (7-18); CALCIUM LEVEL 8.9 MG/DL (8.5-10.1); CARBON DIOXIDE LEVEL 32 MEQ/L (21-32); CHLORIDE LEVEL 102 MEQ/L (98-107); CREATININE FOR GFR 0.84 MG/DL (0.55-1.30); GLOMERULAR FILTRATION RATE > 60.0 (>51); GLUCOSE, FASTING 109 MG/DL (70-100); POTASSIUM SERUM 3.2 MEQ/L (3.5-5.1); SODIUM LEVEL 138 MEQ/L (136-145); TOTAL PROTEIN 7.6 GM/DL (6.4-8.2)
== END ==
LOC: M LAB 11:34 → M RAD 11:34
PROVIDERS: ATTEND Nurse Practitioner Family
DX: R11.2 Nausea with vomiting, unspecified (principal)

== ENCOUNTER → 2024-03-27 | Outpatient (CLI) | payer MEDICARE, BC ==
[~2024-03-27] MED LIST changes: -GASTROGRAFIN SOLUTION 30ML (Q9963) As Ordered ONE; -ISOVUE-370 76% 100ML VIAL As Ordered ONE
== END ==
LOC: M PLAIMG 10:55
PROVIDERS: ATTEND Internal Medicine Pulmonary Disease
DX: R91.8 Other nonspecific abnormal finding of lung field (principal)